=== PATIENT | female | born 1980 | race Caucasian/White ===

== ENCOUNTER 2018-07-13 16:51 | Emergency (ER) | payer MEDICAID, OTHER ==
--- OUTSIDE RECORDS SUMMARY | 2018-07-13 16:53 | XMS REPORT ---
:1980 [facility] Address [address] [place] [address] Dr. Anderson [address] [place] [id number] Care Team Providers Name Role Phone Unavailable Unavailable Unavailable Problems This patient has no known problems. Allergies, Adverse Reactions, Alerts This patient has no known allergies or adverse reactions. Medications This patient has no known medications.
[2018-07-13] MEDS ORDERED: KETOROLAC 30 MG/ML INJ ONE (17:57)
[2018-07-13 17:58] LABS: Absolute Lymphocytes (CBC) 1.7 K/uL (0.7-4.9); Absolute Monocytes 0.3 K/uL (0.1-1.3); Absolute Neutrophil 5.3 K/uL (1.8-8.0); Basophils % 0.2 % (0-1.3); Eosinophils % 2.5 % (0-4.4); Hematocrit 41.5 % (36.0-45.0); MPV 9.4 fL (7.6-11.3); Monocytes % 4.3 % (3.3-12.3); RBC Red Blood Cell Count 4.86 M/uL (3.86-4.86)
--- NOTE | 2018-07-13 18:04 | RAD REPORT ---
EXAM DESCRIPTION: CT - Stone Protocol - 07/13/2018 5:55 pm CLINICAL HISTORY: Right back pain, right flank pain radiating to the right lower quadrant, dysuria COMPARISON: CT imaging June 2016 TECHNIQUE: Axial 5 mm thick images were obtained without oral or IV contrast. The [id number] span s the entirety of the system partially obscuring uppermost abdomen and lung bases. All CT scans are performed using dose optimization technique as appropriate and may include automated exposure control or mA/KV adjustment according to patient size. FINDINGS: No hydronephrosis is present and no obstructing ureteral calculi. No suspicious renal mass es. Isodense masses and pyelonephritis are not excluded on a stone protocol CT scan. Urinary bladder is only partially filled which limits assessment. No bladder calculus seen. No significant adrenal fi nding. No uterine or ovarian suspicious finding seen. Free fluid in the cul-de-sac is well within phy siologic limits. Imaged portions of the liver, spleen and pancreas show no suspicious findings on non-contrast imaging . Cholecystectomy clips are present. No biliary tree dilatation. No suspicious bowel findings. No appendicitis or other acute GI process seen. No hernia, mass or bulky lymphadenopathy noted. No free air, free fluid or inflammatory stranding. No significant bony abnormality. No acute lung base finding. Anterior pericardial thickening or effusion has not change from 2017. IMPRESSION: No hydronephrosis, obstructing calculus or acute finding seen. Isodense masses and pyelonephritis are not excluded on stone protocol technique. 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 No abnormality seen to explain the patient's symptoms.
[2018-07-13 18:15] LABS: Potassium 3.8 mmol/L (3.5-5.1)
[2018-07-13 18:28] LABS: Urine Blood 2+ (NEG); Urine Glucose NEGATIVE (NEG); Urine Protein 1+ (NEG); Urine Specific Gravity >1.030 (1.005-1.030); Urine pH 5.5 (5.0-7.0)
[2018-07-13] MEDS ORDERED: CEFTRIAXONE/SWI 1gm 1 GM/10 ML SYR ONE (18:31)
[2018-07-13 18:42] LABS: Urine Bacteria >50 /HPF (<20); Urine Culture Reflex Order NOT NEEDED; Urine Trichomonas PRESENT (NONE SEEN)
--- NOTE | 2018-07-13 18:46 | EDPHYS ---
Physician Documentation [facility] Name: Tg Quarles Age: 38 yrs Sex: Female : 1980 Arrival Date: 07/13/2018 Time: 17:03 Bed 19 Private MD: Wes Urena E ED Physician Darrian Eason HPI: 07/13 18:18 This 38 yrs old Female presents to ER via Ambulatory with complaints of Flank jr8 pain, Urinary Problem. 18:18 The patient complains of pain in the right flank. The pain does not radiate. Onset: The jr8 symptoms/episode began/occurred acutely, 2 week(s) ago, and became persistent. Modifying factors: The symptoms are alleviated by nothing. the symptoms are aggravated by nothing. Associated signs and symptoms: Pertinent positives: dysuria. Severity of pain: At its worst the pain was moderate in the emergency department the pain is unchanged. It is unknown whether or not the patient has had similar symptoms in the past. The patient has not recently seen a physician. History of renal stones and cystitis in past . 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 - Social history:: Smoking status: Patient/guardian denies using tobacco. - Ebola Screening: : No symptoms or risks identified at this time. ROS: 18:18 Eyes: Negative for injury, pain, redness, and discharge, ENT: Negative for injury, jr8 pain, and discharge, Neck: Negative for injury, pain, and swelling, Cardiovascular: Negative for chest pain, palpitations, and edema, Respiratory: Negative for shortness of breath, cough, wheezing, and pleuritic chest pain, Abdomen/GI: Negative for abdominal pain, nausea, vomiting, diarrhea, and constipation, MS/Extremity: Negative for injury and deformity, Skin: Negative for injury, rash, and discoloration, Neuro: Negative for headache, weakness, numbness, tingling, and seizure. 18:18 Back: Positive for flank pain, on the right. 18:18 : Positive for urinary symptoms, Negative for vaginal bleeding, vaginal discharge, vaginal itching. Exam: 18:18 Eyes: Pupils equal round and reactive to light, extra-ocular motions intact. Lids and jr8 lashes normal. Conjunctiva and sclera are non-icteric and not injected. Cornea within normal limits. Periorbital areas with no swelling, redness, or edema. ENT: Nares patent. No nasal discharge, no septal abnormalities noted. Tympanic membranes are normal and external auditory canals are clear. Oropharynx with no redness, swelling, or masses, exudates, or evidence of obstruction, uvula midline. Mucous membranes moist. Neck: Trachea midline, no thyromegaly or masses palpated, and no cervical lymphadenopathy. Supple, full range of motion without nuchal rigidity, or vertebral point tenderness. No Meningismus. Cardiovascular: Regular rate and rhythm with a normal S1 and S2. No gallops, murmurs, or rubs. Normal PMI, no JVD. No pulse deficits. Respiratory: Lungs have equal breath sounds bilaterally, clear to auscultation and percussion. No rales, rhonchi or wheezes noted. No increased work of breathing, no retractions or nasal flaring. Skin: Warm, dry with normal turgor. Normal color with no rashes, no lesions, and no evidence of cellulitis. MS/ Extremity: Pulses equal, no cyanosis. Neurovascular intact. Full, normal range of motion. Neuro: Awake and alert, GCS 15, oriented to person, place, time, and situation. Cranial nerves II-XII grossly intact. Motor strength 5/5 in all extremities. Sensory grossly intact. Cerebellar exam normal. Normal gait. 18:18 Abdomen/GI: Inspection: abdomen appears normal, Bowel sounds: active, all quadrants, Palpation: soft, in all quadrants, mild abdominal tenderness, in the suprapubic area and anterior aspect of right lateral abdomen, mass, is not appreciated, rebound tenderness, is not appreciated, voluntary guarding, is not appreciated, involuntary guarding, is not appreciated, no appreciated organomegaly, Indicators: McBurney's point is not tender, Joya's sign is negative, Rovsing's sign is negative, Obturator sign is negative, Psoas sign is negative, Liver: tenderness, is not appreciated. 18:18 Back: pain, is absent, CVA tenderness, that is mild, is noted on the right. Vital Signs: 17:20 BP 121 / 48; Pulse 118; Resp 20; Temp 97.4; Pulse Ox 98% on R/A; ph MDM: 17:16 Patient medically screened. 8 18:24 Data reviewed: vital signs, nurses notes, lab test result(s), radiologic studies, CT jr8 scan, and as a result, I will discharge patient. Data interpreted: Pulse oximetry: on room air is 98 %. Interpretation: normal. Counseling: I had a detailed discussion with the patient and/or guardian regarding: the historical points, exam findings, and any diagnostic results supporting the discharge/admit diagnosis, lab results, radiology results, the need for outpatient follow up, a family practitioner, to return to the emergency department if symptoms worsen or persist or if there are any questions or concerns that arise at home. 07/13 17:35 Order name: Basic Metabolic Panel; Complete Time: 18:17 07/13 17:35 Order name: CBC with Diff; Complete Time: 18:17 07/13 17:35 Order name: Creatinine for Radiology; Complete Time: 18:17 07/13 17:45 Order name: Urine Dipstick--Ancillary (enter results); Complete Time: 18:39 07/13 17:45 Order name: Urine --Ancillary (enter results); Complete Time: 18:39 07/13 18:21 Order name: Urine Microscopic Only; Complete Time: 18:48 07/13 17:35 Order name: IV Saline Lock; Complete Time: 17:38 07/13 17:35 Order name: Labs collected and sent; Complete Time: 17:38 [facility] 07/13 17:35 Order name: CT Stone Protocol; Complete Time: 18:17 07/13 17:38 Order name: Urine Test (obtain specimen); Complete Time: 17:42 07/13 18:21 Order name: Urine Culture 07/13 17:38 Order name: Urine Dipstick-Ancillary (obtain specimen); Complete Time: 17:42 Administered Medications: 17:45 Drug: TORadol 30 mg Route: IVP; Site: right antecubital; hj 18:01 Follow up: Response: No adverse reaction; Pain is decreased hj 18:17 Drug: Rocephin 1 grams Route: IV; Rate: calculated rate; Site: right antecubital; hj 18:24 Follow up: IV Status: Completed infusion hj 18:49 Drug: Flagyl 2 grams Route: PO; hj 18:59 Follow up: Response: No adverse reaction hj Disposition: 07/13/18 18:45 Discharged to Home. Impression: Acute cystitis with hematuria. - Condition is Stable. - Prescriptions for Diflucan 150 mg Oral Tablet - take 1 tablet by ORAL route one time for 1 day; 1 tablet. Pyridium 200 mg Oral Tablet - take 1 tablet by ORAL route every 8 hours for 3 days; 9 tablet. Macrobid 100 mg Oral Capsule - take 1 capsule by ORAL route every 12 hours for 7 days; 14 capsule. - Medication Reconciliation Form, Thank You Letter, Antibiotic Education, Prescription Opioid Use form. - Follow up: Wes Urena MD; When: 2 - 3 days; Reason: Recheck today's complaints, Continuance of care, Re-evaluation by your physician. - Problem is new. - Symptoms have improved. Signatures: Dispatcher [employer] EDMS August Reynolds PA PA jr8 Brittney Waldron RN RN Mike Rivsa RN RN Corrections: (The following items were deleted from the chart) 18:19 18:18 This 38 yrs old Female presents to ER via Ambulatory with complaints of jr8 Abdominal Pain, Urinary Problem. jr8 19:09 18:45 07/13/2018 18:45 Discharged to Home. Impression: Acute cystitis with hematuria. hj Condition is Stable. Forms are Medication Reconciliation Form, Thank You Letter, Antibiotic Education, Prescription Opioid Use. Follow up: Wes Urena; When: 2 - 3 days; Reason: Recheck today's complaints, Continuance of care, Re-evaluation by your physician. Problem is new. Symptoms have improved. jr8
--- NOTE | 2018-07-13 18:46 | ER ---
Nurse's Notes [facility] Name: Tg Quarles Age: 38 yrs Sex: Female : 1980 Arrival Date: 07/13/2018 Time: 17:03 Bed 19 Private MD: Wes Urena E Diagnosis: Acute cystitis with hematuria Presentation: 07/13 17:19 Presenting complaint: Patient states: R mid back pain that radiates to RLQ, urinary ph frequency/urgency and vaginal discomfort, denies N/V/D or fever. Transition of care: patient was not received from another setting of care. Onset of symptoms. Risk Assessment: Do you want to hurt yourself or someone else? Patient reports no desire to harm self or others. Initial Sepsis Screen: Does the patient meet any 2 criteria? No. Patient's initial sepsis screen is negative. Does the patient have a suspected source of infection? Yes: Dysuria/Frequency/Urgency/UTI. Care prior to arrival: None. 17:19 Method Of Arrival: Ambulatory ph 17:19 Acuity: JULIENNE 3 ph Triage Assessment: 17:22 General: Appears in no apparent distress. uncomfortable, Behavior is calm, cooperative, hj appropriate for age. Pain: Complains of pain in abdomen. 17:24 GI: Abdomen is non-distended. 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 - Social history:: Smoking status: Patient/guardian denies using tobacco. - Ebola Screening: : No symptoms or risks identified at this time. Screenin:21 Abuse screen: Denies threats or abuse. Denies injuries from another. Nutritional hj screening: No deficits noted. Tuberculosis screening: No symptoms or risk factors identified. Fall Risk None identified. Assessment: 17:25 GI: Bowel sounds present X 4 quads. Abd is soft and non tender. hj 17:25 General: Appears in no apparent distress. uncomfortable, Behavior is calm, cooperative, hj appropriate for age. Pain: Complains of pain in abdomen. Neuro: Level of Consciousness is awake, alert, obeys commands, Oriented to person, place, time, situation, Appropriate for age. Cardiovascular: Capillary refill < 3 seconds Patient's skin is warm and dry. Respiratory: Airway is patent Respiratory effort is even, unlabored, Respiratory pattern is regular, symmetrical. : No signs and/or symptoms were reported regarding the genitourinary system. EENT: No signs and/or symptoms were reported regarding the EENT system. Derm: No signs and/or symptoms reported regarding the dermatologic system. Musculoskeletal: No signs and/or symptoms reported regarding the musculoskeletal system. 17:52 Reassessment: wheeled to CT;. hj Vital Signs: 17:20 BP 121 / 48; Pulse 118; Resp 20; Temp 97.4; Pulse Ox 98% on R/A; ph ED Course: 17:03 Patient arrived in ED. mr 17:03 Wes Urena MD is Private Physician. mr 17:11 Mike Rivas, SUMAYA is Primary Nurse. hj 17:15 August Reynolds PA is PHCP. jr8 17:15 Darrian Eason MD is Attending Physician. jr8 17:20 Triage completed. ph 17:23 Arm band placed on Patient placed in an exam room, on a stretcher. ph 17:25 Patient has correct armband on for positive identification. Placed in gown. Bed in low hj position. Call light in reach. Side rails up X 1. Adult w/ patient. 17:40 Initial lab(s) drawn, by me, sent to lab. Inserted saline lock: 22 gauge in right hj antecubital area, using aseptic technique. Blood collected. 17:[address] via wheelchair. vm2 17:55 CT Stone Protocol In Process Unspecified. EDMS 17:55 CT completed. Patient tolerated procedure well. Patient moved back from CT. nj 18:39 Wes Urena MD is Referral Physician. jr8 19:08 No provider procedures requiring assistance completed. IV discontinued, intact, hj bleeding controlled, No redness/swelling at site. Pressure dressing applied. Administered Medications: 17:45 Drug: TORadol 30 mg Route: IVP; Site: right antecubital; hj 18:01 Follow up: Response: No adverse reaction; Pain is decreased hj 18:17 Drug: Rocephin 1 grams Route: IV; Rate: calculated rate; Site: right antecubital; hj 18:24 Follow up: IV Status: Completed infusion hj 18:49 Drug: Flagyl 2 grams Route: PO; 18:59 Follow up: Response: No adverse reaction Outcome: 18:45 Discharge ordered by MD. stanton 19:08 Discharged to home ambulatory, with family. 19:08 Condition: stable 19:08 Discharge instructions given to patient, Instructed on discharge instructions, follow up and referral plans. medication usage, Demonstrated understanding of instructions, follow-up care, medications, Prescriptions given X 3. 19:09 Patient left the ED. Signatures: Dispatcher [employer] EDIN Milagros Delgado Josh, PA PA jrBrittney Rhoades RN RN Mike Rivas RN RN hj Jordan, Nathan nj McGuire, [facility]
[2018-07-13] MEDS ORDERED: metroNIDAZOLE 500 MG TABLET ONE (19:07)
[2018-07-13 19:31] VITALS: BP 121/48; TEMP 97.4; O2SAT 98
== END 2018-07-13 19:09 | disposition home or self-care (01) ==
LOC: ER 16:51
DX: N30.01 Acute cystitis with hematuria (principal); I10 Essential (primary) hypertension; Z88.2 Allergy status to sulfonamides; Z88.5 Allergy status to narcotic agent
CPT/HCPCS: 36415; 74176; 76377; 80048; 81003; 81015; 81025; 85025; 87077; 87086; 87088; 87186; 96374; 96375; 99284; J0696

== ENCOUNTER 2018-12-05 18:14 | Emergency (ER) | payer OTHER ==
--- OUTSIDE RECORDS SUMMARY | 2018-12-05 18:18 | XMS REPORT ---
:1980 [facility] Address [address] [place] [address] Dr. Pierce. [address] [place] [address] Care Team Providers Name Role Phone DR MATT MCLAUGHLIN Unavailable Unavailable SIDALECQU, LORENA Unavailable Unavailable Problems This patient has no known problems. Allergies, Adverse Reactions, Alerts This patient has no known allergies or adverse reactions. Medications This patient has no known medications. Encounters Start End Encounter Admission Attending Care Care Encounter Date/Time Date/Time Type Type Clinicians Facility Department ID 2018-10-15 2018-10-15 Emergency E DARSHANA MCLAUGHLIN [facility] [id number] 02:31:00 03:40:00 MATT 2018-10-01 2018-10-01 Outpatient C PERCY Alen RAD [id number] 08:05:00 23:59:00 LORENA Results Test Description Test Time Test Comments Text Results Atomic Results Result Comments CT ABDOMEN AND 2018-10-01 08:51:45 EXAM: CT ABDOMEN AND PELVIS WITH PELVIS WITH CONTRAST.LOCATION: D4.HISTORY: [id number]: CONTRAST Disorder of [id number]: Benign neoplasm of colon.COMPARISON:None.TECHNIQUE:CT abdomen and pelvis was performed with the use of IV contrast (98 mLOmnipaque 300). Sagittal and coronal reconstructed images were available forreview.This exam was performed according to our departmental dose-optimizationprogram, which includes automated exposure control, adjustment of the mA and/orkV according to patient size, and/or use of iterative reconstruction technique.FINDINGS:Lower chest:The lung bases are clear. Heart size is normal.Abdomen:There has been prior cholecystectomy. Focal areas of cortical scarring are seenin the right kidney. Couple subcentimeter hypodensities in the right kidney istoo small to characterize. The liver, pancreas, spleen, bilateral adrenalglands, and left kidney appear within normal limits.There is no evidence of bowel obstruction. The appendix is not well visualized;however, there are no significant inflammatory changes in the right lowerquadrant to suggest appendicitis.No pneumoperitoneum or ascites is present. There is no retroperitoneal ormesenteric lymphadenopathy.Pelvis:The urinary bladder appears normal. 4.0 cm left adnexal cyst is present, likelywithin the left ovary. Small amount of ascites is present. No pelvic oringuinal adenopathy is identified.Bones:There is a slight grade 1 retrolisthesis of L2 over L3, L3 over L4, and of L5over S1. No acute osseous abnormality is identified. No aggressive lytic orblastic lesions are seen.IMPRESSION:4.0 cm left adnexal cyst, likely within the left ovary.Mild physiologic pelvic ascites.
--- NOTE | 2018-12-05 18:40 | EDPHYS ---
Physician Documentation [facility] Name: Tg Quarles Age: 38 yrs Sex: Female : 1980 Arrival Date: 12/05/2018 Time: 18:19 Bed 19 Private MD: ED Physician Emeka Calles HPI: 12/05 18:51 This 38 yrs old Female presents to ER via Ambulatory with complaints of kb Numbness Of Hand, Arm Pain. 18:53 The patient or guardian complains of pain, that is acute. The complaints affect the kb left arm. Context: The problem was sustained at home, resulted from unknown cause. Onset: The symptoms/episode began/occurred "a while ago". Treatment prior to arrival includes: no previous treatment. Modifying factors: The symptoms are alleviated by nothing. the symptoms are aggravated by nothing. Associated signs and symptoms: Pertinent positives: numbness, pain, tingling. Severity of symptoms: At their worst the symptoms were mild, in the emergency department the symptoms are unchanged. The patient has not experienced similar symptoms in the past. The patient has not recently seen a physician. Pt reports pain to entire left arm that started a while ago. Today notice numbness to forth and fifth digits on left hand. Historical: - Allergies: 18:22 Sulfa (Sulfonamide Antibiotics); la1 18:22 tramadol; la1 - PMHx: 18:22 GERD; Hypertension; UTI; la1 - Immunization history:: Adult Immunizations up to date. - Social history:: Smoking status: Patient uses tobacco products, denies chronic smoking, but will smoke occasionally. - Ebola Screening: : No symptoms or risks identified at this time. ROS: 18:48 Constitutional: Negative for fever, chills, and weight loss, Cardiovascular: Negative kb for chest pain, palpitations, and edema, Respiratory: Negative for shortness of breath, cough, wheezing, and pleuritic chest pain, Abdomen/GI: Negative for abdominal pain, nausea, vomiting, diarrhea, and constipation, Skin: Negative for injury, rash, and discoloration, Neuro: Negative for headache, weakness, numbness, tingling, and seizure. 18:48 MS/extremity: Positive for pain, tingling, of the left ring finger, left little finger and left arm. Exam: 18:48 Constitutional: This is a well developed, well nourished patient who is awake, alert, kb and in no acute distress. Head/Face: Normocephalic, atraumatic. Chest/axilla: Normal chest wall appearance and motion. Nontender with no deformity. No lesions are appreciated. Cardiovascular: Regular rate and rhythm with a normal S1 and S2. No gallops, murmurs, or rubs. Normal PMI, no JVD. No pulse deficits. Respiratory: Lungs have equal breath sounds bilaterally, clear to auscultation and percussion. No rales, rhonchi or wheezes noted. No increased work of breathing, no retractions or nasal flaring. Abdomen/GI: Soft, non-tender, with normal bowel sounds. No distension or tympany. No guarding or rebound. No evidence of tenderness throughout. Skin: Warm, dry with normal turgor. Normal color with no rashes, no lesions, and no evidence of cellulitis. Neuro: Awake and alert, GCS 15, oriented to person, place, time, and situation. Cranial nerves II-XII grossly intact. Motor strength 5/5 in all extremities. Sensory grossly intact. Cerebellar exam normal. Normal gait. 18:48 Musculoskeletal/extremity: Extremities: grossly normal except: noted in the left arm: pain, noted in the left ring finger and left little finger: tingling/numbness, ROM: intact in all extremities, Circulation is intact in all extremities. Sensation intact. Vital Signs: 18:21 BP 104 / 76; Pulse 74; Resp 16; Temp 97.4; Pulse Ox 98% on R/A; Weight 107.95 kg; la1 Height 6 ft. 2 in. (187.96 cm); 18:21 Body Mass Index 30.56 (107.95 kg, 187.96 cm) la1 MDM: 18:27 Patient medically screened. kb 18:50 Data reviewed: vital signs, nurses notes. Data interpreted: Pulse oximetry: on room air kb is 98 %. Interpretation: normal. Counseling: I had a detailed discussion with the patient and/or guardian regarding: the historical points, exam findings, and any diagnostic results supporting the discharge/admit diagnosis, the need for outpatient follow up, a family practitioner, to return to the emergency department if symptoms worsen or persist or if there are any questions or concerns that arise at home. Administered Medications: 18:46 Drug: predniSONE 40 mg Route: PO; em 18:49 Follow up: Response: Medication administered at discharge. em Disposition: 12/05/18 18:40 Discharged to Home. Impression: Pain in left arm - neuropathy. - Condition is Stable. - Discharge Instructions: Musculoskeletal Pain, Neuropathic Pain. - Prescriptions for Prednisone 20 mg Oral Tablet - take 1 tablet by ORAL route once daily for 5 days; 5 tablet. - Medication Reconciliation Form, Thank You Letter, Antibiotic Education, Prescription Opioid Use form. - Follow up: Emergency Department; When: As needed; Reason: Worsening of condition. Follow up: Private Physician; When: 2 - 3 days; Reason: Recheck today's complaints, Continuance of care, Re-evaluation by your physician. Signatures: Brielle Dhillon, YARN CLEANER-C YARN CLEANER-Jeremiah Mcdonald, DRY CLEANER PRESSER DRY CLEANER PRESSER em Alexis Hartman RN RN la1 Corrections: (The following items were deleted from the chart) 18:53 18:40 12/05/2018 18:40 Discharged to Home. Impression: Pain in left arm - neuropathy. em Condition is Stable. Forms are Medication Reconciliation Form, Thank You Letter, Antibiotic Education, Prescription Opioid Use. Follow up: Emergency Department; When: As needed; Reason: Worsening of condition. Follow up: Private Physician; When: 2 - 3 days; Reason: Recheck today's complaints, Continuance of care, Re-evaluation by your physician. kb
--- NOTE | 2018-12-05 18:40 | ER ---
Nurse's Notes [facility] Name: Tg Quarles Age: 38 yrs Sex: Female : 1980 Arrival Date: 12/05/2018 Time: 18:19 Bed 19 Private MD: Diagnosis: Pain in left arm-neuropathy Presentation: 12/05 18:22 Presenting complaint: Patient states: I woke up this morning and on my left hand my la1 fourth and fifth digits are numb and my arm is hurting. Transition of care: patient was not received from another setting of care. Onset of symptoms was December 05, 2018. Risk Assessment: Do you want to hurt yourself or someone else? Patient reports no desire to harm self or others. Initial Sepsis Screen: Does the patient meet any 2 criteria? No. Patient's initial sepsis screen is negative. Does the patient have a suspected source of infection? No. Patient's initial sepsis screen is negative. Care prior to arrival: None. 18:22 Method Of Arrival: Ambulatory la1 18:22 Acuity: JULIENNE 4 la1 Historical: - Allergies: 18:22 Sulfa (Sulfonamide Antibiotics); la1 18:22 tramadol; la1 - PMHx: 18:22 GERD; Hypertension; UTI; la1 - Immunization history:: Adult Immunizations up to date. - Social history:: Smoking status: Patient uses tobacco products, denies chronic smoking, but will smoke occasionally. - Ebola Screening: : No symptoms or risks identified at this time. Screenin:38 Abuse screen: Denies threats or abuse. Nutritional screening: No deficits noted. em Tuberculosis screening: No symptoms or risk factors identified. Fall Risk None identified. Assessment: 18:38 General: Appears in no apparent distress. comfortable, Behavior is calm, cooperative. em Pain: Complains of pain in left arm Pain currently is 6 out of 10 on a pain scale. Quality of pain is described as radiating, Pain began 1 day ago. Neuro: Level of Consciousness is awake, alert, obeys commands, Oriented to person, place, time, situation, Moves all extremities. Gait is steady, Speech is normal, Facial symmetry appears normal, Reports paresthesias in dorsal aspect of distal phalanx of left ring finger, dorsal aspect of middle phalanx of left ring finger, dorsal aspect of proximal phalanx of left ring finger, dorsal aspect of distal phalanx of left little finger, dorsal aspect of middle phalanx of left little finger and dorsal aspect of proximal phalanx of left little finger Denies headache. Cardiovascular: Capillary refill < 3 seconds Patient's skin is warm and dry. Respiratory: Airway is patent Respiratory effort is even, unlabored, Respiratory pattern is regular, symmetrical. GI: Abdomen is flat. Derm: Skin is intact, is healthy with good turgor, Skin is pink, warm \T\ dry. Musculoskeletal: Capillary refill < 3 seconds, Range of motion: intact in all extremities, Reports. Vital Signs: 18:21 BP 104 / 76; Pulse 74; Resp 16; Temp 97.4; Pulse Ox 98% on R/A; Weight 107.95 kg; la1 Height 6 ft. 2 in. (187.96 cm); 18:21 Body Mass Index 30.56 (107.95 kg, 187.96 cm) la1 ED Course: 18:19 Patient arrived in ED. mr 18:22 Arm band placed on right wrist. la1 18:23 Triage completed. la1 18:27 Bri[facility]hillon [facility]C [facility] kb 18:27 Emeka Calles MD is Attending Physician. kb 18:37 Jeremiah Plascencia LVN is Primary Nurse. em 18:38 Patient has correct armband on for positive identification. Bed in low position. em 18:38 No provider procedures requiring assistance completed. Patient did not have IV access em during this emergency room visit. Administered Medications: 18:46 Drug: predniSONE 40 mg Route: PO; em 18:49 Follow up: Response: Medication administered at discharge. em Outcome: 18:40 Discharge ordered by MD. kb 18:50 Discharged to home ambulatory. em 18:50 Condition: stable 18:50 Discharge instructions given to patient, Instructed on discharge instructions, follow up and referral plans. medication usage, Demonstrated understanding of instructions, follow-up care, medications, Prescriptions given X 1. 18:53 Patient left the ED. em Signatures: Brielle Dhiloln FNP-C FNP-Jaqui DannyMilagros mr Jeremiah Plascencia LVN MEDICAL SUPERINTENDENT em Alexis Hartman RN RN la1
[2018-12-05] MEDS ORDERED: predniSONE 20 MG TAB ONE (18:56)
[2018-12-05 19:03] VITALS: BP 104/76; TEMP 97.4; O2SAT 98
== END 2018-12-05 18:53 | disposition home or self-care (01) ==
LOC: ER 18:14
DX: G62.9 Polyneuropathy, unspecified (principal); K21.9 Gastro-esophageal reflux disease without esophagitis; I10 Essential (primary) hypertension; Z72.0 Tobacco use; Z88.5 Allergy status to narcotic agent; Z88.2 Allergy status to sulfonamides
CPT/HCPCS: 99283; J7512

== ENCOUNTER 2018-12-12 17:11 | Emergency (ER) | payer OTHER ==
--- OUTSIDE RECORDS SUMMARY | 2018-12-12 17:14 | XMS REPORT ---
:1980 [facility] Address [address] [place] [address] Dr. Pierce. [address] [place] [address] Care Team Providers Name Role Phone DR MATT MCLAUGHLIN Unavailable Unavailable SIDDIQU, LORENA Unavailable Unavailable Problems This patient has no known problems. Allergies, Adverse Reactions, Alerts This patient has no known allergies or adverse reactions. Medications This patient has no known medications. Encounters Start End Encounter Admission Attending Care Care Encounter Date/Time Date/Time Type Type Clinicians Facility Department ID 2018-10-15 2018-10-15 Emergency E [facility] [id number] 02:31:00 03:40:00 MATT 2018-10-01 2018-10-01 Outpatient C [facility] RAD [id number] 08:05:00 23:59:00 LORENA Results Test Description Test Time Test Comments Text Results Atomic Results Result Comments CT ABDOMEN AND 2018-10-01 08:51:45 EXAM: CT ABDOMEN AND PELVIS WITH PELVIS WITH CONTRAST.LOCATION: D4.HISTORY: [id number]: CONTRAST Disorder of [id number]: Benign neoplasm of colon.COMPARISON:None.TECHNIQUE:CT abdomen and pelvis [...]
--- OUTSIDE RECORDS SUMMARY | 2018-12-12 17:14 | XMS REPORT | Summary of Care ---
:1980 [address] [facility] Address [address] [place] [address] Care Team Providers Name Role Phone Jl Martins MD Primary Care Provider Reason for Visit Reason Comments Talk To Nurse Encounter Details Date Type Department Care Team Description 12/10/2018 Telephone [facility] Women's Eun Mitchell PA-C Talk To Nurse Healthcare- [address], [facility] [address] [place] [address] [place] [phone] Allergies Active Allergy Reactions Severity Noted Date Comments Sulfa (Sulfonamide Antibiotics) Hives 10/28/2013 Tramadol Nausea and/or Vomiting 07/04/2015 documented as of this encounter (statuses as of 12/10/2018) Medications Medication Sig Dispensed Refills Start Date End Date Status cetirizine (ZYRTEC) 10 0 12/02/2015 Active mg tablet omeprazole 40 mg 0 09/16/2018 Active capsule ondansetron 4 mg 0 09/16/2018 Active tablet metoprolol tartrate 25 Take 0.5 tablets 45 tablet 1 09/21/2018 03/20/2019 Active mg tabletIndications: by mouth daily Essential hypertension for 180 days. metroNIDAZOLE 500 mg Take 1 tablet by 14 tablet 0 12/01/2018 Active tabletIndications: mouth every 12 Vaginal (twelve) hours. trichomoniasis, BV (bacterial vaginosis) fluconazole 200 mg Take 1 tablet by 1 tablet 0 12/02/2018 Active tabletIndications: mouth daily. Vaginal yeast infection documented as of this encounter (statuses as of 12/10/2018) Active Problems Problem Noted Date Trichomonal vulvovaginitis 12/01/2018 BV (bacterial vaginosis) 12/01/2018 Obesity (BMI 30-39.9) 11/22/2018 Skin yeast infection 12/03/2015 Well woman exam with routine gynecological exam 12/03/2015 Screen for STD (sexually transmitted disease) 12/03/2015 Depo contraception 12/03/2015 Pain pelvic 07/02/2015 Surveillance of previously prescribed contraceptive method 07/02/2015 Irregular menstrual cycle 07/02/2015 Well woman exam without gynecological exam 07/02/2015 Need for prophylactic vaccination with combined 07/02/2015 umrkeduten-gbqqsys-ccimmejnc (DTP) vaccine BMI 34.0-34.9,adult 07/02/2015 documented as of this encounter (statuses as of 12/10/2018) Immunizations Name Administration Dates Next Due Influenza Virus Vaccine Quad .5 mL IM 6+ MO 04/19/2018 Td 12/28/1996 Tdap 07/02/2015 documented as of this encounter Social History Tobacco Use Types Packs/Day Years Used Date Current Some Day Smoker Cigarettes Smokeless Tobacco: Never Used Alcohol Use Drinks/Week oz/Week Comments No 0 Standard drinks or equivalent 0.0 Sex Assigned at Date Recorded Not on file Job Start Date Occupation Industry Not on file Not on file Not on file Travel History Travel Start Travel End No recent travel history available. documented as of this encounter Last Filed Vital Signs Not on filedocumented in this encounter Plan of Treatment Date Type Specialty Care Team Description 03/11/2019 Nurse Visit Obstetrics & Gynecology Nurse, [facility] Women's [facility] Health Maintenance Due Date Last Done Comments PNEUMOCOCCAL 0-64 YEARS COMBINED SERIES (1 01/08/1988 of 1 - PPSV23) VARICELLA VACCINES (1 of 2 - 13+ 2-dose 1995 series) INFLUENZA VACCINE 01/16/2019 04/19/2018 PAP SMEAR 10/15/2022 10/15/2017, 10/28/2013 DTaP,Tdap,and Td Vaccines (3 - Td) 07/02/2025 07/02/2015, 12/28/1996 documented as of this encounter Results Not on filedocumented in this encounter Insurance Payer Benefit Plan / Subscriber ID Effective Phone Address Type Group Dates [employer] xxxxxxxxx [address] [place] [id number] [place] [address] documented as of this encounter
[2018-12-12 18:01] LABS: Urine Blood 1+ (NEG); Urine Glucose NEGATIVE (NEG); Urine Protein 1+ (NEG); Urine Specific Gravity 1.025 (1.005-1.030)
[2018-12-12] MEDS ORDERED: DIAZEPAM 5 MG TABLET ONE (18:10)
[2018-12-12] MEDS ORDERED: dexAMETHasone 10 MG/ML VIAL ONE (18:10)
[2018-12-12] MEDS ORDERED: KETOROLAC 30 MG/ML INJ ONE (18:11)
[2018-12-12 18:21] LABS: Urine Bacteria >50 /HPF (<20); Urine Culture Reflex Order REFLEXED; Urine RBC <5 /HPF (NONE SEEN)
--- NOTE | 2018-12-12 18:49 | ER ---
Nurse's Notes [facility] Name: Tg Quarles Age: 38 yrs Sex: Female : 1980 Arrival Date: 12/12/2018 Time: 17:17 Bed 17 Private MD: Diagnosis: Strain of muscle, fascia and tendon of lower back Presentation: 12/12 17:21 Presenting complaint: Patient states: lower back pain after bending down today. sv Transition of care: patient was not received from another setting of care. Onset of symptoms was December 12, 2018. Risk Assessment: Do you want to hurt yourself or someone else? Patient reports no desire to harm self or others. Initial Sepsis Screen: Does the patient meet any 2 criteria? No. Patient's initial sepsis screen is negative. Does the patient have a suspected source of infection? No. Patient's initial sepsis screen is negative. Care prior to arrival: None. 17:21 Method Of Arrival: Ambulatory sv 17:21 Acuity: JULIENNE 4 sv Historical: - Allergies: 17:21 Sulfa (Sulfonamide Antibiotics); sv 17:21 tramadol; sv - PMHx: 17:21 GERD; Hypertension; UTI; sv - Immunization history:: Adult Immunizations up to date. - Social history:: Smoking status: Patient uses tobacco products, denies chronic smoking, but will smoke occasionally. - Ebola Screening: : No symptoms or risks identified at this time. Screenin:26 Abuse screen: Denies threats or abuse. Nutritional screening: No deficits noted. em Tuberculosis screening: No symptoms or risk factors identified. Fall Risk None identified. Assessment: 17:21 General: Appears in no apparent distress. uncomfortable, Behavior is calm, cooperative, sv appropriate for age. Pain: Complains of pain in low back area Pain currently is 10 out of 10 on a pain scale. Is continuous, Aggravated by increased activity, repositioning, weight bearing. Neuro: Level of Consciousness is awake, alert, obeys commands, Oriented to person, place, time, situation, Moves all extremities. Full function Gait is steady. Respiratory: Respiratory effort is even, unlabored, Respiratory pattern is regular, symmetrical. Derm: Skin is pink, warm \T\ dry. 18:53 Reassessment: Patient appears in no apparent distress at this time. Patient and/or em family updated on plan of care and expected duration. Pain level reassessed. Patient is alert, oriented x 3, equal unlabored respirations, skin warm/dry/pink. rates pain 6/10 Patient states feeling better. Patient states symptoms have improved. Vital Signs: 17:21 Pulse 83; Resp 22; Temp 97; Pulse Ox 100% ; Weight 107.95 kg; Height 6 ft. 2 in. sv (187.96 cm); Pain 10/10; 17:24 BP 128 / 74; em 17:21 Body Mass Index 30.56 (107.95 kg, 187.96 cm) ED Course: 17:17 Patient arrived in ED. as 17:21 Triage completed. sv 17:22 Jeremiah Plascencia LVN is Primary Nurse. em 17:22 Arm band placed on Patient placed in an exam room, on a stretcher. sv 17:24 Angel Fox PA is PHCP. [facility] 17:24 Darrian Eason MD is Attending Physician. [facility] 17:26 Patient has correct armband on for positive identification. Bed in low position. Call em light in reach. 19:02 No provider procedures requiring assistance completed. Patient did not have IV access em during this emergency room visit. Administered Medications: 18:01 Drug: Valium 5 mg Route: PO; em 18:42 Follow up: Response: No adverse reaction; Pain is decreased em 18:03 Drug: Ketorolac 30 mg Route: IM; Site: right deltoid; em 18:42 Follow up: Response: No adverse reaction; Pain is decreased em 18:03 Drug: Decadron 10 mg Route: IM; Site: left deltoid; em 18:42 Follow up: Response: No adverse reaction; Pain is decreased em Outcome: 18:49 Discharge ordered by . [facility] 19:02 Discharged to home ambulatory. em 19:02 Condition: good 19:02 Discharge instructions given to patient, Instructed on discharge instructions, follow up and referral plans. medication usage, Demonstrated understanding of instructions, follow-up care, medications, Prescriptions given X 3. 19:04 Patient left the ED. em Signatures: Yomaira Alegre RN RN Angel Fox PA PA Jeermiah Todd LVN LVN em Giselle Workman as
--- NOTE | 2018-12-12 18:49 | EDPHYS ---
Physician Documentation [facility] Name: Tg Quarles Age: 38 yrs Sex: Female : 1980 Arrival Date: 12/12/2018 Time: 17:17 Bed 17 Private MD: NY[facility] Physician Darrian Eason HPI: 12/12 17:25 This 38 yrs old Female presents to ER via Ambulatory with complaints of Back jmm Pain. 17:25 The patient presents with pain that is acute. Onset: The symptoms/episode jmm began/occurred acutely, today. The pain does not radiate. Associated signs and symptoms: Pertinent negatives: abdominal pain, fever, incontinence, nausea, numbness, tingling, urinary retention, weakness. The problem was sustained when bending over. Modifying factors: The patient symptoms are alleviated by rest, the patient symptoms are aggravated by any movement. Patient states she bent over and developed pain to her right lower back. Denies radiation of pain. . Historical: - Allergies: 17:21 Sulfa (Sulfonamide Antibiotics); sv 17:21 tramadol; sv - PMHx: 17:21 GERD; Hypertension; UTI; sv - Immunization history:: Adult Immunizations up to date. - Social history:: Smoking status: Patient uses tobacco products, denies chronic smoking, but will smoke occasionally. - Ebola Screening: : No symptoms or risks identified at this time. ROS: 17:25 Constitutional: Negative for fever, chills, and weight loss, Cardiovascular: Negative jmm for chest pain, palpitations, and edema, Respiratory: Negative for shortness of breath, cough, wheezing, and pleuritic chest pain, Abdomen/GI: Negative for abdominal pain, nausea, vomiting, diarrhea, and constipation. 17:25 Back: Positive for injury or acute deformity, pain with movement. 17:25 All other systems are negative. Exam: 17:25 Constitutional: This is a well developed, well nourished patient who is awake, alert, jmm and in no acute distress. Head/Face: atraumatic. Eyes: EOMI, no conjunctival erythema appreciated ENT: Moist Mucus Membranes Neck: Trachea midline, Supple Chest/axilla: Normal chest wall appearance and motion. Cardiovascular: Regular rate and rhythm. No edema appreciated Respiratory: Normal respirations, no respiratory distress appreciated Abdomen/GI: Non distended, soft 17:25 Skin: General appearance color normal MS/ Extremity: Moves all extremities, no obvious deformities appreciated, no edema noted to the lower extremities Neuro: Awake and alert, normal gait Psych: Behavior is normal, Mood is normal, Patient is cooperative and pleasant 17:25 Back: right lower lumbar tenderness, no midline tenderness is appreciated. Vital Signs: 17:21 Pulse 83; Resp 22; Temp 97; Pulse Ox 100% ; Weight 107.95 kg; Height 6 ft. 2 in. sv (187.96 cm); Pain 10/10; 17:24 BP 128 / 74; em 17:21 Body Mass Index 30.56 (107.95 kg, 187.96 cm) sv MDM: 17:25 Patient medically screened. sina 18:48 Data reviewed: vital signs, nurses notes. Counseling: I had a detailed discussion with tricia the patient and/or guardian regarding: the historical points, exam findings, and any diagnostic results supporting the discharge/admit diagnosis, the need for outpatient follow up, to return to the emergency department if symptoms worsen or persist or if there are any questions or concerns that arise at home. Response to treatment: the patient's symptoms have markedly improved after treatment. 12/12 17:51 Order name: Urine Microscopic Only; Complete Time: 18:40 em 12/12 17:53 Order name: Urine Dipstick--Ancillary (enter results); Complete Time: 18:04 bd 12/12 17:53 Order name: Urine --Ancillary (enter results); Complete Time: 18:04 bd 12/12 18:26 Order name: Urine Culture [facility] 12/12 17:25 Order name: Urine Test (obtain specimen); Complete Time: 17:51 [facility] 12/12 17:51 Order name: Urine Dipstick-Ancillary (obtain specimen); Complete Time: 17:53 em Administered Medications: 18:01 Drug: Valium 5 mg Route: PO; em 18:42 Follow up: Response: No adverse reaction; Pain is decreased em 18:03 Drug: Ketorolac 30 mg Route: IM; Site: right deltoid; em 18:42 Follow up: Response: No adverse reaction; Pain is decreased em 18:03 Drug: Decadron 10 mg Route: IM; Site: left deltoid; em 18:42 Follow up: Response: No adverse reaction; Pain is decreased em Disposition: 12/13 07:25 Co-signature as Attending Physician, Darrian Eason MD I agree with the assessment and sina plan of care. Disposition: 12/12/18 18:49 Discharged to Home. Impression: Strain of muscle, fascia and tendon of lower back. - Condition is Stable. - Discharge Instructions: Back Pain, Adult. - Prescriptions for Ibuprofen 800 mg Oral Tablet - take 1 tablet by ORAL route every 8 hours As needed take with food; 30 tablet. Zanaflex 4 mg Oral Tablet - take 1 tablet by ORAL route every 8 hours As needed; 20 tablet. Cephalexin 500 mg Oral Capsule - take 1 capsule by ORAL route every 12 hours for 10 days; 20 capsule. - Medication Reconciliation Form, Thank You Letter, Antibiotic Education, Prescription Opioid Use form. - Follow up: Private Physician; When: 2 - 3 days; Reason: Recheck today's complaints, Continuance of care, Re-evaluation by your physician. Signatures: Dispatcher [employer] Yomaira Reyes RN RN sv Anderson, Corey, MD MD cha Mickail, Joel, PA PA Jeremiah Heart, PECAN GATHERER PECAN GATHERER em Corrections: (The following items were deleted from the chart) 12/12 19:04 18:49 12/12/2018 18:49 Discharged to Home. Impression: Strain of muscle, fascia and em tendon of lower back. Condition is Stable. Forms are Medication Reconciliation Form, Thank You Letter, Antibiotic Education, Prescription Opioid Use. Follow up: Private Physician; When: 2 - 3 days; Reason: Recheck today's complaints, Continuance of care, Re-evaluation by your physician. tricia
[2018-12-12 19:39] VITALS: TEMP 97; O2SAT 100
[2018-12-12 19:40] VITALS: BP 128/74
== END 2018-12-12 19:04 | disposition home or self-care (01) ==
LOC: ER 17:11
DX: S39.012A Strain of muscle, fascia and tendon of lower back, initial encounter (principal); I10 Essential (primary) hypertension; Z72.0 Tobacco use; Z88.2 Allergy status to sulfonamides; Z88.5 Allergy status to narcotic agent
CPT/HCPCS: 81003; 81015; 81025; 87086; 87088; 96372; 99283; J1100

== ENCOUNTER 2018-12-20 21:43 | Emergency (ER) | payer OTHER ==
--- OUTSIDE RECORDS SUMMARY | 2018-12-20 21:45 | XMS REPORT ---
:1980 [facility] Address [address] [place] [address] [address]. [address]. [address] [place] [address] Care Team Providers Name Role Phone DR [...] Department ID 2018-10-15 2018-10-15 Emergency E [facility] [address] [id number] 02:31:00 03:40:00 MATT 2018-10-01 2018-10-01 Outpatient C [facility] RAD [id number] 08:05:00 23:59:00 LORENA Results Test Description Test Time Test Comments Text Results Atomic Results Result Comments CT ABDOMEN AND 2018-10-01 08:51:45 EXAM: CT ABDOMEN AND PELVIS WITH PELVIS WITH CONTRAST.LOCATION: D4.HISTORY: [id number]: CONTRAST Disorder of [id number]: Benign neoplasm of colon.COMPARISON:None.TECHNIQUE:CT abdomen and pelvis [...]
--- OUTSIDE RECORDS SUMMARY | 2018-12-20 21:45 | XMS REPORT | Summary of Care ---
:1980 Author Organization [facility] Address [address] [place] [address] Care Team Providers Name Role Phone Jl Martins MD Primary Care Provider Reason for Visit Reason Comments Talk To Nurse Encounter Details Date Type Department Care Team Description 12/13/2018 Telephone [facility] Women's Eun Mitchell PA-C Talk To Nurse Healthcare- [address], [facility] [address] [place] [address] [place] [phone] Allergies Active Allergy Reactions Severity Noted Date Comments Sulfa (Sulfonamide Antibiotics) Hives 10/28/2013 Tramadol Nausea and/or Vomiting 07/04/2015 documented as of this encounter (statuses as of 12/13/2018) Medications Medication Sig Dispensed Refills Start Date [...] as of this encounter (statuses as of 12/13/2018) Active Problems Problem Noted Date Trichomonal vulvovaginitis [...] Need for prophylactic vaccination with combined 07/02/2015 oimybihkcj-ccsruif-lvbgdzbmg (DTP) vaccine BMI 34.0-34.9,adult 07/02/2015 documented as of this encounter (statuses as of 12/13/2018) Immunizations Name Administration Dates Next Due Influenza [...] [address] [place] [id number] [place] [address] documented as of this encounter
[2018-12-20 23:36] LABS: Urine Culture Reflex Order REFLEXED
[2018-12-20 23:37] LABS: Urine Bacteria <20 /HPF (<20); Urine RBC <5 /HPF (NONE SEEN)
[2018-12-21 00:22] LABS: Urine Blood NEGATIVE (NEG); Urine Glucose NEGATIVE (NEG); Urine Protein NEGATIVE (NEG); Urine pH 7.5 (5.0-7.0)
--- NOTE | 2018-12-21 01:27 | EDPHYS ---
Physician Documentation [facility] Name: Tg Quarles Age: 38 yrs Sex: Female : 1980 Arrival Date: 12/20/2018 Time: 22:00 Bed 12 Private MD: NYA Physician Adonis Fonseca HPI: 12/21 00:28 This 38 yrs old Female presents to ER via Ambulatory with complaints of Back kb Pain. 00:28 The patient complains of pain in the right flank. The pain does not radiate. Onset: The kb symptoms/episode began/occurred 4 day(s) ago. Modifying factors: The symptoms are alleviated by nothing. the symptoms are aggravated by nothing. Associated signs and symptoms: The patient has no apparent associated signs or symptoms. Severity of pain: At its worst the pain was mild moderate in the emergency department the pain is unchanged. The patient has experienced a previous episode, similar to previous stone. The patient has not recently seen a physician. 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 - Social history:: Smoking status: Patient uses tobacco products, denies chronic smoking, but will smoke occasionally. - Ebola Screening: : No symptoms or risks identified at this time. ROS: 12/21 00:27 Constitutional: Negative for fever, chills, and weight loss, ENT: Negative for injury, kb pain, and discharge, Neck: Negative for injury, pain, and swelling, Cardiovascular: Negative for chest pain, palpitations, and edema, Respiratory: Negative for shortness of breath, cough, wheezing, and pleuritic chest pain, Abdomen/GI: Negative for abdominal pain, nausea, vomiting, diarrhea, and constipation, MS/Extremity: Negative for injury and deformity, Skin: Negative for injury, rash, and discoloration, Neuro: Negative for headache, weakness, numbness, tingling, and seizure. : Positive for flank pain, cloudy urine. Exam: 00:27 Constitutional: This is a well developed, well nourished patient who is awake, alert, kb and in no acute distress. Head/Face: Normocephalic, atraumatic. ENT: Nares patent. No nasal discharge, no septal abnormalities noted. Tympanic membranes are normal and external auditory canals are clear. Oropharynx with no redness, swelling, or masses, exudates, or evidence of obstruction, uvula midline. Mucous membranes moist. Neck: Trachea midline, no thyromegaly or masses palpated, and no cervical lymphadenopathy. Supple, full range of motion without nuchal rigidity, or vertebral point tenderness. No Meningismus. Chest/axilla: Normal chest wall appearance and motion. Nontender with no deformity. No lesions are appreciated. Cardiovascular: Regular rate and rhythm with a normal S1 and S2. No gallops, murmurs, or rubs. Normal PMI, no JVD. No pulse deficits. Respiratory: Lungs have equal breath sounds bilaterally, clear to auscultation and percussion. No rales, rhonchi or wheezes noted. No increased work of breathing, no retractions or nasal flaring. Abdomen/GI: Soft, non-tender, with normal bowel sounds. No distension or tympany. No guarding or rebound. No evidence of tenderness throughout. Back: No spinal tenderness. No costovertebral tenderness. Full range of motion. Skin: Warm, dry with normal turgor. Normal color with no rashes, no lesions, and no evidence of cellulitis. MS/ Extremity: Pulses equal, no cyanosis. Neurovascular intact. Full, normal range of motion. Neuro: Awake and alert, GCS 15, oriented to person, place, time, and situation. Cranial nerves II-XII grossly intact. Motor strength 5/5 in all extremities. Sensory grossly intact. Cerebellar exam normal. Normal gait. Vital Signs: 12/20 22:04 BP 118 / 58; Pulse 91; Resp 18; Temp 98.1; Pulse Ox 100% on R/A; Weight 107.95 kg (R); ak1 Height 6 ft. 2 in. (187.96 cm) (R); Pain 10/10; 12/21 00:47 BP 123 / 66; Pulse 94; Resp 18; Temp 98.3(O); Pulse Ox 100% on R/A; mw2 01:37 BP 120 / 59; Pulse 91; Resp 16; Temp 97.9(O); Pulse Ox 100% on R/A; mw2 12/20 22:04 Body Mass Index 30.56 (107.95 kg, 187.96 cm) ak1 MDM: 12/20 22:52 Patient medically screened. kb 12/21 00:27 Data reviewed: vital signs, nurses notes. Data interpreted: Pulse oximetry: on room air kb is 100 %. Interpretation: normal. Counseling: I had a detailed discussion with the patient and/or guardian regarding: the historical points, exam findings, and any diagnostic results supporting the discharge/admit diagnosis, lab results, radiology results, the need for outpatient follow up, a family practitioner, to return to the emergency department if symptoms worsen or persist or if there are any questions or concerns that arise at home. 12/20 23:00 Order name: Urine Microscopic Only; Complete Time: 23:45 kb 12/20 23:36 Order name: Urine Dipstick--Ancillary (enter results); Complete Time: 00:24 ar5 12/20 23:00 Order name: Urine Test (obtain specimen); Complete Time: 23:33 kb 12/20 23:36 Order name: Urine --Ancillary (enter results); Complete Time: 00:24 ar5 12/20 23:39 Order name: Urine Culture EDHI 12/20 23:45 Order name: CT Stone Protocol 12/20 23:00 Order name: Urine Dipstick-Ancillary (obtain specimen); Complete Time: 23:33 kb Administered Medications: No medications were administered Disposition: 07:12 Co-signature as Attending Physician, Adonis Fonseca MD Available for consultation at ps1 all times. . Disposition: 12/21/18 01:26 Discharged to Home. Impression: Flank Pain. - Condition is Stable. - Discharge Instructions: Flank Pain, [id number]-ah-Wcqg. - Medication Reconciliation Form, Thank You Letter, Antibiotic Education, Prescription Opioid Use form. - Follow up: Emergency Department; When: As needed; Reason: Worsening of condition. Follow up: Private Physician; When: 2 - 3 days; Reason: Recheck today's complaints, Continuance of care, Re-evaluation by your physician. Signatures: Dispatcher [employer] ED AlejoBrielle, COAT EXAMINER-C COAT EXAMINER-Stefanie Bernal, RN RN bb Kerry Davidson RN RN ak1 Adonis Fonseca MD MD ps1 Corrections: (The following items were deleted from the chart) 01:41 01:26 12/21/2018 01:26 Discharged to Home. Impression: Flank Pain. Condition is Stable. bb Forms are Medication Reconciliation Form, Thank You Letter, Antibiotic Education, Prescription Opioid Use. Follow up: Emergency Department; When: As needed; Reason: Worsening of condition. Follow up: Private Physician; When: 2 - 3 days; Reason: Recheck today's complaints, Continuance of care, Re-evaluation by your physician. kb
--- NOTE | 2018-12-21 01:27 | ER ---
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 Transition of care: ak1 patient was not received from another setting of care. Onset of symptoms is unknown. Risk Assessment: Do you want to hurt yourself or someone else? Patient reports no desire to harm self or others. Initial Sepsis Screen: Does the patient meet any 2 criteria? No. Patient's initial sepsis screen is negative. Does the patient have a suspected source of infection? No. Patient's initial sepsis screen is negative. Care prior to arrival: None. 22:05 Method Of Arrival: Ambulatory ak1 22:05 Acuity: JULIENNE 4 ak1 Triage Assessment: 22:04 General: Appears in no apparent distress. Behavior is calm, cooperative. 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 - Social history:: Smoking status: Patient uses tobacco products, denies chronic smoking, but will smoke occasionally. - Ebola Screening: : No symptoms or risks identified at this time. Screenin/06 00:31 Abuse screen: Denies threats or abuse. Nutritional screening: No deficits noted. bb Tuberculosis screening: No symptoms or risk factors identified. Fall Risk None identified. Assessment: 00:11 Reassessment: pt not in room at this time. bb 00:31 General: Appears in no apparent distress. uncomfortable, Behavior is calm, cooperative. bb Pain: Complains of pain in right flank. Neuro: Level of Consciousness is awake, alert, obeys commands, Oriented to person, place, time, situation. Cardiovascular: No deficits noted. Respiratory: Respiratory effort is even, unlabored, Respiratory pattern is regular. GI: Abdomen is non-distended, Reports upper abdominal pain. Derm: Skin is pink, warm \T\ dry. Musculoskeletal: Circulation, motion, and sensation intact. 01:40 Reassessment: Patient is alert, oriented x 3, equal unlabored respirations, skin bb warm/dry/pink. pt verbalized understanding of and agrees to plan of care discharge instructions given pt ambulated with steady gait to exit. Vital Signs: 12/20 22:04 BP 118 / 58; Pulse 91; Resp 18; Temp 98.1; Pulse Ox 100% on R/A; Weight 107.95 kg (R); ak1 Height 6 ft. 2 in. (187.96 cm) (R); Pain 10/10; 12/21 00:47 BP 123 / 66; Pulse 94; Resp 18; Temp 98.3(O); Pulse Ox 100% on R/A; mw2 01:37 BP 120 / 59; Pulse 91; Resp 16; Temp 97.9(O); Pulse Ox 100% on R/A; mw2 08 22:04 Body Mass Index 30.56 (107.95 kg, 187.96 cm) ak1 ED Course: 12/20 22:00 Patient arrived in ED. ag3 22:04 Arm band placed on Patient placed in waiting room, Patient notified of wait time. ak1 22:05 Triage completed. ak1 22:11 Bri[facility] Dhill[facility]C [facility] kb 22:11 Adonis Fonseca MD is Attending Physician. kb 12/21 00:16 CT Stone Protocol In Process Unspecified. EDMS 00:31 Patient has correct armband on for positive identification. Call light in reach. bb 01:40 Stefanie Sigala, SUMAAY is Primary Nurse. bb 01:41 No provider procedures requiring assistance completed. Patient did not have IV access bb during this emergency room visit. Administered Medications: No medications were administered Outcome: 01:26 Discharge ordered by . kb 01:41 Discharged to home ambulatory. bb 01:41 Condition: stable 01:41 Discharge instructions given to patient, Instructed on discharge instructions, follow up and referral plans. Demonstrated understanding of instructions, follow-up care. 01:41 Patient left the ED. bb Signatures: Dispatcher [employer] EDBrielle Evangelista, EDWINA SWEET-Stefanie Bernal RN RN Kerry Nichols RN RN ak1 Jacinto Grimm 2 Kym Plummer 3
[2018-12-21 02:42] VITALS: O2SAT 100
[2018-12-21 02:45] VITALS: BP 120/59; TEMP 97.9
--- NOTE | 2018-12-21 09:47 | RAD REPORT ---
EXAM DESCRIPTION: CT - Stone Protocol - 12/21/2018 6:15 am CLINICAL HISTORY: The patient is 38 years old and is Female; FLANK PAIN TECHNIQUE: Axial computed tomography images of the abdomen and pelvis without intravenous contrast. Sagittal and coronal reformatted images were created and reviewed. This CT exam was performed usi ng one or more of the following dose reduction techniques: automated exposure control, adjustment o f the mA and/or kV according to patient size, and/or use of iterative reconstruction technique. COMPARISON: CT abdomen and pelvis without contrast dated July 13, 2018. FINDINGS: LUNG BASES: Unremarkable. No mass. No consolidation. ABDOMEN: LIVER: Unremarkable. GALLBLADDER AND BILE DUCTS: Prior cholecystectomy. No ductal dilation. PANCREAS: Unremarkable. No ductal dilation. SPLEEN: Unremarkable. No splenomegaly. ADRENALS: Unremarkable. No mass. KIDNEYS AND URETERS: Unremarkable. No obstructing stones. No hydronephrosis. STOMACH AND BOWEL: Unremarkable. No obstruction. No mucosal thickening. PELVIS: APPENDIX: The appendix is seen and is within normal limits. BLADDER: Unremarkable. No stones. REPRODUCTIVE: Small amount of endometrial fluid. ABDOMEN and PELVIS: INTRAPERITONEAL SPACE: Small amount of free pelvic fluid. No free air. BONES/JOINTS: Small retrolisthesis of L5 on S1. No acute fracture. No dislocation. SOFT TISSUES: Unremarkable. VASCULATURE: Unremarkable. No abdominal aortic aneurysm. LYMPH NODES: Unremarkable. No enlarged lymph nodes. IMPRESSION: 1. No acute abdominal or pelvic abnormality. No obstructive uropathy. 2. Incompletely characterized pelvic changes, likely physiologic. Electronically signed by: Jc Le DO 12/21/2018 1:07 AM CDT Due to temporary technical issues with the PACS/Fluency reporting system, reports are being signed by the in house radiologist as a courtesy to ensure prompt reporting. The interpreting radiologist is f fabianly responsible for the content of the report.
== END 2018-12-21 01:41 | disposition home or self-care (01) ==
LOC: ER 21:43
DX: R10.9 Unspecified abdominal pain (principal); K21.9 Gastro-esophageal reflux disease without esophagitis; I10 Essential (primary) hypertension; Z88.5 Allergy status to narcotic agent; Z88.2 Allergy status to sulfonamides; Z72.0 Tobacco use
CPT/HCPCS: 74176; 76377; 81003; 81015; 81025; 87086; 87088; 99283

== ENCOUNTER 2019-01-27 21:29 | Emergency (ER) | payer OTHER ==
--- OUTSIDE RECORDS SUMMARY | 2019-01-27 21:30 | XMS REPORT ---
:1980 [facility] Address [address] [place] [address] [address] [place] [address] Care Team Providers Name Role Phone DR [...] Department ID 2018-10-15 2018-10-15 Emergency E [facility] [id number] 02:31:00 03:40:00 MATT 2018-10-01 2018-10-01 Outpatient C [facility] RAD [id number] 08:05:00 23:59:00 LORENA Results Test Description Test Time Test Comments Text Results Atomic Results Result Comments CT ABDOMEN AND 2018-10-01 08:51:45 EXAM: CT ABDOMEN AND PELVIS WITH PELVIS WITH CONTRAST.LOCATION: D4.HISTORY: [id number]: CONTRAST Disorder of [id number]: Benign neoplasm of colon.COMPARISON:None.TECHNIQUE:CT abdomen and pelvis [...]
--- OUTSIDE RECORDS SUMMARY | 2019-01-27 21:31 | XMS REPORT | Summary of Care ---
:1980 Author Organization [facility] Address [address] [place] [address] Care Team Providers Name Role Phone Jl Martins MD Primary Care Provider Encounter Details Date Type Department Care Team Description 01/05/2019 Abstract [facility] Orthopaedic [place], Pain ( Primary Dx) Surgery- [address] [place], [place] [address] [place], [place] [phone] [address] [phone] Allergies Active Allergy Reactions Severity Noted Date Comments Sulfa (Sulfonamide Antibiotics) Hives 10/28/2013 Tramadol Nausea and/or Vomiting 07/04/2015 documented as of this encounter (statuses as of 01/05/2019) Medications Medication Sig Dispensed Refills Start Date [...] as of this encounter (statuses as of 01/05/2019) Active Problems Problem Noted Date Trichomonal vulvovaginitis [...] Need for prophylactic vaccination with combined 07/02/2015 fgmegawkav-kropuyg-kmldqowza (DTP) vaccine BMI 34.0-34.9,adult 07/02/2015 documented as of this encounter (statuses as of 01/05/2019) Immunizations Name Administration Dates Next Due Influenza [...] Treatment Date Type Specialty Care Team Description 01/05/2019 Appointment Radiology Cyrus Bateman MD [address] [facility] [address] [place], [place] [address] 01/06/2019 Office Visit Orthopedic Surgery Cyrus Bateman MD [address] [facility] [address] [place], [place] [address] 03/11/2019 Nurse Visit Obstetrics & Gynecology Nurse, [facility] Name Type Priority Associated Diagnoses Order Schedule XR LUMBAR SPINE 2 VW IMAGING Routine Pain Expected: 01/05/2019, Expires: 01/06/2020 Health Maintenance Due Date Last Done Comments PNEUMOCOCCAL 0-64 YEARS COMBINED SERIES (1 01/08/1988 of 1 - PPSV23) VARICELLA VACCINES (1 of 2 - 13+ 2-dose 1995 series) INFLUENZA VACCINE (#1) 2019 04/19/2018 PAP SMEAR 10/15/2022 10/15/2017, 10/28/2013 DTaP,Tdap,and Td Vaccines (3 - Td) 07/02/2025 07/02/2015, 12/28/1996 documented as of this encounter Results Not on filedocumented in this encounter Visit Diagnoses Diagnosis Pain - Primary Generalized pain documented in this encounter Insurance Payer Benefit Plan / Subscriber ID Effective Phone Address Type Group Dates [employer] xxxxxxxxx 2017-Don [place] [address] [place] [address] documented as of this encounter
--- OUTSIDE RECORDS SUMMARY | 2019-01-27 21:31 | XMS REPORT | Summary of Care ---
:1980 Author Organization [address] [address] Care Team Providers Name Role Phone Jl Martins MD Primary Care Provider Reason for Visit Reason Comments Follow-up [facility]ander [facility] ED f/u Encounter Details Date Type Department Care Team Description 12/21/2018 Patient Outreach [facility] Holly Harris, Follow-up ( [facility] Care SUMAYA [address] ED f/u) [place] [address] Allergies Active Allergy Reactions Severity Noted Date Comments Sulfa (Sulfonamide Antibiotics) Hives 10/28/2013 Tramadol Nausea and/or Vomiting 07/04/2015 documented as of this encounter (statuses as of 12/21/2018) Medications Medication Sig Dispensed Refills Start Date [...] as of this encounter (statuses as of 12/21/2018) Active Problems Problem Noted Date Trichomonal vulvovaginitis [...] Need for prophylactic vaccination with combined 07/02/2015 yvkiccnvam-dfvoeux-inuunhxrq (DTP) vaccine BMI 34.0-34.9,adult 07/02/2015 documented as of this encounter (statuses as of 12/21/2018) Immunizations Name Administration Dates Next Due Influenza [...] Signs Not on filedocumented in this encounter Progress Notes Holly Harris RN - 12/21/2018 2:36 PM Renamasoud Quarles is a 38 year old female. Attempted to contact patient to help schedule a follow up appointment with her PCP following her recent ED visit, but she did not answer the call. Left a voicemail message requesting call back. Holly SILVER, RN [facility] Care Management [phone] documented in this encounter Plan of Treatment Date Type Specialty Care Team Description 01/06/2019 Office Visit Orthopedic Surgery Cyrus Bateman MD [address] [facility] [address] [place] [address] [phone] 03/11/2019 Nurse Visit Obstetrics & Gynecology Nurse, [...] xxxxxxxxx 2017-Don [place] [address] [place] [address] documented as of this encounter
--- OUTSIDE RECORDS SUMMARY | 2019-01-27 21:31 | XMS REPORT | Summary of Care ---
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 [facility] Procedures CONSULT/REFERRAL PHYSICAL THERAPY Preferred location: If other, use Department field Tarun MD [address] [place] [address] MRI/CAT Scan (Routine) Status Reason Specialty Diagnoses / Referred By Referred To Procedures Contact Contact New Request Diagnostic Diagnoses Acute right-sided low back pain with sciatica, sciatica laterality unspecified 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 [facility], Radiology Procedures MR LUMBAR SPINE WO CONTRAST Cyrus Mcneil MD [address] [place] [address] Reason for Visit Reason Comments New Patient back pain Encounter Details Date Type Department Care Team Description 01/06/2019 Office Visit [facility] Acute right-sided low back pain with sciatica, sciatica laterality unspecified (Primary Dx); Orthopaedic Surgery- P, MD Sotos' syndrome; [facility] [address] [facility] 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 Vaginal yeast infection naproxen (NAPROSYN) Take 1 tablet by 60 tablet 1 01/06/2019 Active 500 mg mouth 2 (two) tabletIndications: times daily with Acute right-sided low meals. 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 documented as of this encounter (statuses as of 01/06/2019) Active Problems Problem Noted Date Trichomonal vulvovaginitis [...] Need for prophylactic vaccination with combined 07/02/2015 pmnguwupij-xeqvyzr-qnmjmiddi (DTP) vaccine BMI 34.0-34.9,adult 07/02/2015 documented as of this encounter (statuses as of 01/06/2019) Immunizations Name Administration Dates Next Due Influenza [...] of this encounter Last Filed Vital Signs Vital Sign Reading Time Taken Comments Blood Pressure 107/66 01/06/2019 11:27 AM CDT Pulse 86 01/06/2019 11:27 AM CDT Temperature 36.5 C (97.7 F) 01/06/2019 11:27 AM CDT Respiratory Rate - - Oxygen Saturation - - Inhaled Oxygen Concentration - - Weight 98.4 kg (217 lb) 01/06/2019 11:27 AM CDT Height 188 cm (6' 2") 01/06/2019 11:27 AM CDT Body Mass Index 27.86 01/06/2019 11:27 AM CDT documented in this encounter Progress Notes Cyrus Bateman MD - 01/06/2019 11:00 AM CDT 38 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 Last was one week long, usually were a few days. Last time was November and seems like it is more often; last one was the worst, prior episode was in September. Worse standing and with walking. Allergies to Sulfa PMH: Prognathia, difficulties eating, no OMFS consultation Meds: Takes Acetaminophen only FH: NOS, dad and mom average sized SH: No alcohol, not working due to disability, [place] ROS: Vision, eye problems needed glasses, 18 point ROS otherwise was negative. STEPHON 42% PE: 01/06/19 1127 Weight: 98.4 kg (217 lb) Height: 74" (188 cm) Stable height since teenager Neuro intact. Poor ROM of spine due to pain Normal DTRs, neg SLR. Skin CDI. Balanced in coronal and sagittal planes. 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 MRI is needed to assess the canal for disc pathology. Consult for OMFS to eval for prognathia. Follow up after MRI. 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 Health Maintenance Due Date Last Done Comments PNEUMOCOCCAL 0-64 YEARS COMBINED SERIES (1 01/08/1988 of 1 - PPSV23) VARICELLA VACCINES (1 of 2 - 13+ 2-dose 1995 series) INFLUENZA VACCINE (#1) 2019 04/19/2018 PAP SMEAR 10/15/2022 10/15/2017, 10/28/2013 DTaP,Tdap,and Td Vaccines (3 - Td) 07/02/2025 07/02/2015, 12/28/1996 documented as of this encounter Results Not on filedocumented in this encounter Visit Diagnoses Diagnosis Acute right-sided low back pain with sciatica, sciatica laterality unspecified - Primary 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
--- OUTSIDE RECORDS SUMMARY | 2019-01-27 21:31 | XMS REPORT | Summary of Care ---
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 [facility] Procedures CONSULT/REFERRAL PHYSICAL THERAPY Preferred location: If other, use Department field Tarun MD [address] [place] [address] MRI/CAT Scan (Routine) Status Reason Specialty Diagnoses / Referred By Referred To Procedures Contact Contact New Request Diagnostic Diagnoses Acute right-sided low back pain with sciatica, sciatica laterality unspecified 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 [facility], Radiology Procedures MR LUMBAR SPINE WO CONTRAST Cyrus Mcneil MD [address] [place] [address] Reason for Visit Reason Comments New Patient back pain Encounter Details Date Type Department Care Team Description 01/06/2019 Office Visit [facility] Acute right-sided low back pain with sciatica, sciatica laterality unspecified (Primary Dx); Orthopaedic Surgery- P, MD Sotos' syndrome; [facility] [address] [facility] 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 [address] [facility] [address] [place] [address] [phone] Allergies Active Allergy Reactions Severity Noted Date [...] Need for prophylactic vaccination with combined 07/02/2015 nvhchfwzjt-nsjlamj-dtrqroayb (DTP) vaccine BMI 34.0-34.9,adult 07/02/2015 documented as [...] No alcohol, not working due to disability, [place] ROS: Vision, eye problems needed glasses, 20 [...] 03/11/2019 Nurse Visit Obstetrics & Gynecology Nurse, [facility] Name Type Priority Associated Diagnoses Order [...] [address] [place] [id number] [place] [address] ([place]) [place] [address] documented as of this encounter
--- OUTSIDE RECORDS SUMMARY | 2019-01-27 21:31 | XMS REPORT | Summary of Care ---
:1980 Author Organization [facility] Address [address] [place] [address] Care Team Providers Name Role Phone Jl Martins MD Primary Care Provider Reason for Visit Reason Comments Assessment Encounter Details Date Type Department Care Team Description 12/27/2018 Telephone [facility] Eun Mitchell PA-C Assessment Healthcare- [address], [facility] [address] [place] [address] [place] [address] Allergies Active Allergy Reactions Severity Noted Date Comments Sulfa (Sulfonamide Antibiotics) Hives 10/28/2013 Tramadol Nausea and/or Vomiting 07/04/2015 documented as of this encounter (statuses as of 12/27/2018) Medications Medication Sig Dispensed Refills Start Date [...] as of this encounter (statuses as of 12/27/2018) Active Problems Problem Noted Date Trichomonal vulvovaginitis [...] Need for prophylactic vaccination with combined 07/02/2015 cigolvuugp-wngqnbv-ioyzognjn (DTP) vaccine BMI 34.0-34.9,adult 07/02/2015 documented as of this encounter (statuses as of 12/27/2018) Immunizations Name Administration Dates Next Due Influenza [...] Office Visit Orthopedic Surgery Cyrus Bateman MD [address] [facility] [address] [place] [address] [phone] 03/11/2019 Nurse Visit Obstetrics & Gynecology Nurse, [facility] Health Maintenance Due Date Last [...] xxxxxxxxx 2017-Don [place] [id number] [place] [address] documented as of this encounter
[2019-01-27 21:59] LABS: Urine Blood 3+ (NEG); Urine Glucose NEGATIVE (NEG); Urine Protein 1+ (NEG)
--- NOTE | 2019-01-27 23:31 | ER ---
Nurse's Notes [facility] Name: Tg Quarles Age: 39 yrs Sex: Female : 1980 Arrival Date: 01/27/2019 Time: 21:31 Bed 25 Private MD: Diagnosis: Trichomoniasis Presentation: 01/27 21:42 Presenting complaint: Patient states: i have creamy vaginal discharge for one week with mg2 vaginal pain as well. Transition of care: patient was not received from another setting of care. Onset of symptoms was January 2019. Risk Assessment: Do you want to hurt yourself or someone else? Patient reports no desire to harm self or others. Initial Sepsis Screen: Does the patient meet any 2 criteria? No. Patient's initial sepsis screen is negative. Does the patient have a suspected source of infection? No. Patient's initial sepsis screen is negative. Care prior to arrival: None. 21:42 Method Of Arrival: Ambulatory mg2 21:42 Acuity: JULIENNE 4 mg2 Triage Assessment: 21:44 General: Appears in no apparent distress. comfortable, Behavior is calm, cooperative. mg2 Pain: Complains of pain in VAGINA Pain does not radiate. Pain currently is 2 out of 10 on a pain scale. Quality of pain is described as aching, Pain began gradually, Is intermittent. EENT: No signs and/or symptoms were reported regarding the EENT system. Neuro: Level of Consciousness is awake, alert, obeys commands, Oriented to person, place, time, situation. Cardiovascular: Capillary refill < 3 seconds Patient's skin is warm and dry. Respiratory: Airway is patent Respiratory effort is even, unlabored, Respiratory pattern is regular, symmetrical. GI: No signs and/or symptoms were reported involving the gastrointestinal system. : Reports discharge, from vagina that is. Derm: Skin is intact, is healthy with good turgor, Skin is pink, warm \T\ dry. normal. Musculoskeletal: Circulation, motion, and sensation intact. Capillary refill < 3 seconds. 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 - Social history:: Smoking status: Patient/guardian denies using tobacco, Patient/guardian denies using alcohol, street drugs, IV drugs. - Ebola Screening: : No symptoms or risks identified at this time. Screenin:46 Abuse screen: Denies threats or abuse. Denies injuries from another. Nutritional mg2 screening: No deficits noted. Tuberculosis screening: No symptoms or risk factors identified. Fall Risk None identified. Assessment: 21:46 Reassessment: see triage assessment. mg2 01/28 00:03 Reassessment: Patient appears in no apparent distress at this time. mg2 Vital Signs: 01/27 21:45 BP 132 / 79; Pulse 95; Resp 18; Temp 98.1; Pulse Ox 100% on R/A; Weight 98.43 kg; mg2 Height 6 ft. 2 in. (187.96 cm); Pain 3/10; 21:45 Body Mass Index 27.86 (98.43 kg, 187.96 cm) mg2 ED Course: 21:31 Patient arrived in ED. ag3 21:42 Tayo Cain, SUMAYA is Primary Nurse. mg2 21:43 Triage completed. mg2 21:45 Arm band placed on. mg2 21:46 August Reynolds PA is PHCP. jr8 21:46 Darrian Eason MD is Attending Physician. jr8 21:46 Patient did not have IV access during this emergency room visit. mg2 22:52 Patient has correct armband on for positive identification. mg2 01/28 00:02 Assist provider with pelvic exam: Set up pelvic tray. Performed by August HARRIS mg2 Specimens sent to lab. Patient tolerated well. Administered Medications: 01/27 23:37 Drug: Rocephin (cefTRIAXone) 250 mg Route: IM; Site: right gluteus; mg2 01/28 00:03 Follow up: Response: No adverse reaction mg2 01/27 23:37 Drug: Zithromax 1 grams Route: PO; mg2 01/28 00:03 Follow up: Response: No adverse reaction mg2 01/27 23:38 Drug: Flagyl 2 grams Route: PO; mg2 01/28 00:03 Follow up: Response: No adverse reaction mg2 Outcome: 01/27 23:30 Discharge ordered by MD. stanton 01/28 00:03 Discharged to home ambulatory. mg2 Condition: stable Discharge instructions given to patient, Instructed on discharge instructions, follow up and referral plans. Demonstrated understanding of instructions, follow-up care. 00:04 Patient left the ED. mg2 Signatures: August Reynolds PA PA jr8 Tayo Cain RN RN mg2 Kym Plummer ag3 Corrections: (The following items were deleted from the chart) 00:02 01/27 21:46 No provider procedures requiring assistance completed. mg2 mg2
--- NOTE | 2019-01-27 23:31 | EDPHYS ---
Physician Documentation [facility] Name: Tg Quarles Age: 39 yrs Sex: Female : 1980 Arrival Date: 01/27/2019 Time: 21:31 Bed 25 Private MD: [facility] Physician Darrian Eason HPI: 01/27 22:45 This 39 yrs old Female presents to ER via Ambulatory with complaints of jr8 Vaginal Discharge. 22:45 The patient presents with vaginal discharge, that is a small amount of white discharge, jr8 patient has had similar discharge in the past. Onset: The symptoms/episode began/occurred acutely, 2 day(s) ago. Modifying factors: The symptoms are alleviated by nothing, the symptoms are aggravated by nothing. Associated signs and symptoms: Pertinent positives: vaginal itching. Severity of symptoms: At their worst the symptoms were mild, in the emergency department the symptoms are unchanged. The patient is sexually active, reportedly has a single partner. The patient has experienced a previous episode. The patient has not recently seen a physician. Patient stated that she had intercourse about 1 week ago. Now having discharge. History of BV in past. Feels exactly the same as last time. Denies any other symptoms . 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 - Social history:: Smoking status: Patient/guardian denies using tobacco, Patient/guardian denies using alcohol, street drugs, IV drugs. - Ebola Screening: : No symptoms or risks identified at this time. ROS: 22:45 Eyes: Negative for injury, pain, redness, and discharge, ENT: Negative for injury, jr8 pain, and discharge, Neck: Negative for injury, pain, and swelling, Cardiovascular: Negative for chest pain, palpitations, and edema, Respiratory: Negative for shortness of breath, cough, wheezing, and pleuritic chest pain, Abdomen/GI: Negative for abdominal pain, nausea, vomiting, diarrhea, and constipation, Back: Negative for injury and pain, MS/Extremity: Negative for injury and deformity, Skin: Negative for injury, rash, and discoloration, Neuro: Negative for headache, weakness, numbness, tingling, and seizure. 22:45 : Positive for vaginal discharge, vaginal itching, Negative for urinary symptoms, pelvic pain, flank pain, burning with urination. Exam: 22:45 Eyes: Pupils equal round and reactive to light, extra-ocular motions intact. Lids and jr8 lashes normal. Conjunctiva and sclera are non-icteric and not injected. Cornea within normal limits. Periorbital areas with no swelling, redness, or edema. ENT: Nares patent. No nasal discharge, no septal abnormalities noted. Tympanic membranes are normal and external auditory canals are clear. Oropharynx with no redness, swelling, or masses, exudates, or evidence of obstruction, uvula midline. Mucous membranes moist. Neck: Trachea midline, no thyromegaly or masses palpated, and no cervical lymphadenopathy. Supple, full range of motion without nuchal rigidity, or vertebral point tenderness. No Meningismus. Cardiovascular: Regular rate and rhythm with a normal S1 and S2. No gallops, murmurs, or rubs. Normal PMI, no JVD. No pulse deficits. Respiratory: Lungs have equal breath sounds bilaterally, clear to auscultation and percussion. No rales, rhonchi or wheezes noted. No increased work of breathing, no retractions or nasal flaring. Abdomen/GI: Soft, non-tender, with normal bowel sounds. No distension or tympany. No guarding or rebound. No evidence of tenderness throughout. Back: No spinal tenderness. No costovertebral tenderness. Full range of motion. Skin: Warm, dry with normal turgor. Normal color with no rashes, no lesions, and no evidence of cellulitis. MS/ Extremity: Pulses equal, no cyanosis. Neurovascular intact. Full, normal range of motion. Neuro: Awake and alert, GCS 15, oriented to person, place, time, and situation. Cranial nerves II-XII grossly intact. Motor strength 5/5 in all extremities. Sensory grossly intact. Cerebellar exam normal. Normal gait. Vital Signs: 21:45 BP 132 / 79; Pulse 95; Resp 18; Temp 98.1; Pulse Ox 100% on R/A; Weight 98.43 kg; mg2 Height 6 ft. 2 in. (187.96 cm); Pain 3/10; 21:45 Body Mass Index 27.86 (98.43 kg, 187.96 cm) mg2 MDM: 21:[address] [facility] 23:26 Data reviewed: vital signs, nurses notes, lab test result(s), and as a result, I will [facility] discharge patient. Data interpreted: Pulse oximetry: on room air is 100 %. Interpretation: normal. Counseling: I had a detailed discussion with the patient and/or guardian regarding: the historical points, exam findings, and any diagnostic results supporting the discharge/admit diagnosis, lab results, the need for outpatient follow up, a family practitioner, to return to the emergency department if symptoms worsen or persist or if there are any questions or concerns that arise at home. 01/27 21:53 Order name: Urine Dipstick--Ancillary (enter results); Complete Time: 22:21 [facility] 01/27 21:53 Order name: Urine --Ancillary (enter results); Complete Time: 22:21 [facility] 01/27 22:21 Order name: GC (GONORR/CHLAMYDIA) Probe [facility] 01/27 22:21 Order name: Wet Prep; Complete Time: 23:26 [facility] 01/27 21:46 Order name: Urine Dipstick-Ancillary (obtain specimen); Complete Time: 21:46 [facility] 01/27 21:46 Order name: Urine Test (obtain specimen); Complete Time: 21:46 [facility] 01/27 22:21 Order name: Pelvic Exam Setup; Complete Time: 22:35 [facility] Administered Medications: 23:37 Drug: Rocephin (cefTRIAXone) 250 mg Route: IM; Site: right gluteus; mg2 01/28 00:03 Follow up: Response: No adverse reaction [facility] 01/27 23:37 Drug: Zithromax 1 grams Route: PO; mg2 01/28 00:03 Follow up: Response: No adverse reaction [facility] 01/27 23:38 Drug: Flagyl 2 grams Route: PO; mg2 01/28 00:03 Follow up: Response: No adverse reaction mg2 Disposition: 01/27/19 23:30 Discharged to Home. Impression: Trichomoniasis. - Condition is Stable. - Discharge Instructions: Trichomoniasis. - Medication Reconciliation Form, Thank You Letter, Antibiotic Education, Prescription Opioid Use form. - Follow up: Private Physician; When: As needed; Reason: Recheck today's complaints, Continuance of care, Re-evaluation by your physician. - Problem is new. - Symptoms have improved. Addendum: 01/31/2019 08:29 Co-signature as Attending Physician, Darrian Eason MD I agree with the assessment and c ugarte plan of care. Signatures: Dispatcher [employer] EDTX Darrian Eason MD MD cha Roszak, Josh, PA PA jr8 Tayo Cain RN RN mg2 Corrections: (The following items were deleted from the chart) 01/28 00:04 01/27 23:30 01/27/2019 23:30 Discharged to Home. Impression: Trichomoniasis. Condition mg2 is Stable. Forms are Medication Reconciliation Form, Thank You Letter, Antibiotic Education, Prescription Opioid Use. Follow up: Private Physician; When: As needed; Reason: Recheck today's complaints, Continuance of care, Re-evaluation by your physician. Problem is new. Symptoms have improved. jr8
[2019-01-27] MEDS ORDERED: metroNIDAZOLE 500 MG TABLET ONE (23:32)
[2019-01-27] MEDS ORDERED: CEFTRIAXONE 250 MG/VIAL ONE (23:32)
[2019-01-27] MEDS ORDERED: AZITHROMYCIN 250 MG TAB ONE (23:32)
[2019-01-27] MEDS ORDERED: WATER FOR INJ,STERILE 10 ML ONE (23:32)
[2019-02-01 05:00] LABS: C.trachomatis RNA,TMA Not Detected (Not Detected)
== END 2019-01-28 00:04 | disposition home or self-care (01) ==
LOC: ER 21:29
DX: A59.9 Trichomoniasis, unspecified (principal); I10 Essential (primary) hypertension; Z88.2 Allergy status to sulfonamides; Z88.5 Allergy status to narcotic agent
CPT/HCPCS: 81025; 87210; 81003; 87590; 87490; 96372; 99283; J0696

== ENCOUNTER 2020-11-11 02:59 | Emergency (ER) | payer OTHER ==
--- OUTSIDE RECORDS SUMMARY | 2020-11-11 03:02 | XMS REPORT | Continuity of Care Document ---
:1980 Author Organization [facility] t Address [address] [place] [address] Care Team Providers Name Role Phone Candis Haider MD Attending Clinician DR ARNOLDO Attending Clinician Unavailable PERCY Attending Clinician Unavailable DR ARNOLDO Admitting Clinician Unavailable PERCY Admitting Clinician Unavailable Problems This patient has no known problems. Allergies, Adverse Reactions, Alerts This patient has no known allergies or adverse reactions. Medications This patient has no known medications. Procedures This patient has no known procedures. Encounters Start End Encounter Admission Attending Care Care Encounter Source Date/Time Date/Time Type Type Clinicians Facility Department ID 2020-11-08 2020-11-08 Office Meliza Gloria [id number] 11:09:23 12:22:47 Visit , [facility] [id number] M s and [id number] Adult [id number] [facility] 2018-10-15 2018-10-15 Emergency E DARSHANA MCLAUGHLIN [facility] [id number] [place] 02:31:00 03:40:00 [facility] 2018-10-01 2018-10-01 Outpatient C DARSHANA GREER RAD [id number] [place] 08:05:00 23:59:00 [facility] Results Test Description Test Time Test Comments Results Result [facility] e Comments CT ABDOMEN AND 2018-10-01 EXAM: CT ABDOMEN AND PELVIS WITH 08:51:45 PELVIS WITH CONTRAST CONTRAST.LOCATION: D4.HISTORY: [id number]: Disorder of [id number]: Benign neoplasm of colon.COMPARISON:None. TECHNIQUE:CT abdomen and pelvis was performed with the use of IV contrast (98 mLOmnipaque 300). Sagittal and coronal reconstructed images were available forreview.This exam was performed according to our departmental dose-optimizationprogr am, which includes automated exposure control, adjustment of the mA and/orkV according to patient size, and/or use of iterative reconstruction technique.FINDINGS:Low er chest:The lung bases are clear. Heart size [...] is present. There is no retroperitoneal ormesenteric lymphadenopathy.Pelvis :The urinary bladder appears normal. 4.0 cm left [...]
[2020-11-11] MEDS ORDERED: KETOROLAC 30 MG/ML INJ ONE (05:27)
--- NOTE | 2020-11-11 06:30 | ER ---
Nurse's Notes [facility] Name: Tg Quarles Age: 40 yrs Sex: Female : 1980 Arrival Date: 11/11/2020 Time: 03:05 Bed 20 Private MD: Diagnosis: Spinal stenosis, cervical region;Spondylolysis, cervical region;Radiculopathy, cervical region Presentation: 11/11 03:42 Chief complaint: Patient states: she has had a stiff neck and neck pain x 4 days she bb has tried OTC medication, massage and other interventions but it is not getting any better denies fever. Coronavirus screen: At this time, the client does not indicate any symptoms associated with coronavirus-19. Ebola Screen: No symptoms or risks identified at this time. Initial Sepsis Screen: Does the patient meet any 2 criteria? No. Patient's initial sepsis screen is negative. Does the patient have a suspected source of infection? No. Patient's initial sepsis screen is negative. Risk Assessment: Do you want to hurt yourself or someone else? Patient reports no desire to harm self or others. Onset of symptoms was October 2020. 03:42 Method Of Arrival: Ambulatory bb 03:42 Acuity: JULIENNE 4 bb Triage Assessment: 03:45 General: Appears uncomfortable, Behavior is calm, cooperative. Pain: Complains of pain bb in neck Pain currently is 10 out of 10 on a pain scale. Neuro: Level of Consciousness is awake, alert, obeys commands, Oriented to person, place, time, situation. Cardiovascular: Capillary refill < 3 seconds Patient's skin is warm and dry. Respiratory: Respiratory effort is even, unlabored. GI: No signs and/or symptoms were reported involving the gastrointestinal system. Derm: Skin is pink, warm \T\ dry. Musculoskeletal: Circulation, motion, and sensation intact. Reports pain in neck. 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 - Social history:: Smoking status: Patient reports the use of cigarette tobacco products, denies chronic smoking, but will smoke occasionally. Screenin:38 Abuse screen: Denies threats or abuse. Denies injuries from another. Nutritional jm8 screening: No deficits noted. Tuberculosis screening: No symptoms or risk factors identified. Fall Risk None identified. Assessment: 04:36 General: Appears in no apparent distress. comfortable, Behavior is calm, cooperative, jm8 appropriate for age. Pain: Complains of pain in neck Pain currently is 10 out of 10 on a pain scale. Quality of pain is described as crampy, shooting, tingling, Pain began 4 days ago. Neuro: No deficits noted. Level of Consciousness is awake, alert, obeys commands, Oriented to person, place, time. Cardiovascular: No deficits noted. Respiratory: No deficits noted. Airway is patent Trachea midline Respiratory effort is even, unlabored, Respiratory pattern is regular, symmetrical. GI: No deficits noted. No signs and/or symptoms were reported involving the gastrointestinal system. : No deficits noted. No signs and/or symptoms were reported regarding the genitourinary system. EENT: Reports right-sided neck pain and stiffness. Derm: No deficits noted. No signs and/or symptoms reported regarding the dermatologic system. Musculoskeletal: No deficits noted. No signs and/or symptoms reported regarding the musculoskeletal system. Vital Signs: 03:42 BP 114 / 62; Pulse 86; Resp 18 S; Temp 98.5(O); Pulse Ox 99% on R/A; Weight 99.34 kg bb (R); Height 6 ft. 2 in. (187.96 cm) (R); Pain 10/10; 06:38 BP 115 / 74; Pulse 84; Resp 16; Pulse Ox 99% on R/A; jm8 03:42 Body Mass Index 28.12 (99.34 kg, 187.96 cm) ED Course: 03:05 Patient arrived in ED. es 03:44 Triage completed. bb 03:45 Arm band placed on Patient placed in waiting room, Patient notified of wait time. 04:35 Miguel Ángel Marks MD is Attending Physician. [facility] 04:38 Patient has correct armband on for positive identification. Bed in low position. Call belkis light in reach. Side rails up X2. 05:27 CT C Spine In Process Unspecified. EDMS 06:37 No provider procedures requiring assistance completed. Patient did not have IV access belkis during this emergency room visit. Administered Medications: 05:14 Drug: TORadol (ketorolac) 60 mg Route: IM; Site: right ventrogluteal; jm8 06:39 Follow up: Response: No adverse reaction belkis Outcome: 06:29 Discharge ordered by . treva 06:37 Discharged to home ambulatory. jm8 06:37 Condition: good 06:37 Discharge instructions given to patient, Instructed on discharge instructions, follow up and referral plans. medication usage, Demonstrated understanding of instructions, follow-up care, medications, Prescriptions given X 2. 06:38 Patient left the ED. jm8 Signatures: Dispatcher [employer] Ana Doherty Brenda, RN RN bb Holmes, Maurice, MD MD Papo Nava RN RN 8
--- NOTE | 2020-11-11 06:30 | EDPHYS ---
Physician Documentation [facility] Name: Tg Quarles Age: 40 yrs Sex: Female : 1980 Arrival Date: 11/11/2020 Time: 03:05 Bed 20 Private MD: ED Physician Miguel Ángel Marks HPI: 11/11 05:04 This 40 yrs old Female presents to ER via Ambulatory with complaints of Stiff mh7 Neck, Neck Pain, >24Hrs Old. 05:04 The patient or guardian complains of pain, that is acute, spasm, stiffness. The mh7 symptoms are located at the neck. Onset: The symptoms/episode began/occurred 4 day(s) ago. Context: The problem was sustained at home, The neck injury/problem resulted from from unknown cause. Associated signs and symptoms: Pertinent negatives: chills, constipation, fever, headache, bladder incontinence, bowel incontinence, nausea, numbness, tingling, vomiting, weakness. The pain radiates to the right shoulder. Modifying factors: The symptoms are alleviated by nothing. the symptoms are aggravated by movement. Severity of symptoms: At their worst the symptoms were moderate, yesterday, in the emergency department the symptoms are unchanged. 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 - Social history:: Smoking status: Patient reports the use of cigarette tobacco products, denies chronic smoking, but will smoke occasionally. ROS: 05:04 Constitutional: Negative for fever, chills, and weight loss, Eyes: Negative for injury, mh7 pain, redness, and discharge, ENT: Negative for injury, pain, and discharge, Cardiovascular: Negative for chest pain, palpitations, and edema, Respiratory: Negative for shortness of breath, cough, wheezing, and pleuritic chest pain, Abdomen/GI: Negative for abdominal pain, nausea, vomiting, diarrhea, and constipation, Back: Negative for injury and pain, : Negative for injury, bleeding, discharge, and swelling, MS/Extremity: Negative for injury and deformity, Skin: Negative for injury, rash, and discoloration, Neuro: Negative for headache, weakness, numbness, tingling, and seizure, Psych: Negative for depression, anxiety, suicide ideation, homicidal ideation, and hallucinations, Allergy/Immunology: Negative for hives, rash, and allergies, Endocrine: Negative for neck swelling, polydipsia, polyuria, polyphagia, and marked weight changes, Hematologic/Lymphatic: Negative for swollen nodes, abnormal bleeding, and unusual bruising. Exam: 05:04 Constitutional: This is a well developed, well nourished patient who is awake, alert, mh7 and in no acute distress. Head/Face: Normocephalic, atraumatic. Eyes: Pupils equal round and reactive to light, extra-ocular motions intact. Lids and lashes normal. Conjunctiva and sclera are non-icteric and not injected. Cornea within normal limits. Periorbital areas with no swelling, redness, or edema. Chest/axilla: Normal chest wall appearance and motion. Nontender with no deformity. No lesions are appreciated. Cardiovascular: Regular rate and rhythm with a normal S1 and S2. No gallops, murmurs, or rubs. Normal PMI, no JVD. No pulse deficits. Respiratory: Lungs have equal breath sounds bilaterally, clear to auscultation and percussion. No rales, rhonchi or wheezes noted. No increased work of breathing, no retractions or nasal flaring. Abdomen/GI: Soft, non-tender, with normal bowel sounds. No distension or tympany. No guarding or rebound. No evidence of tenderness throughout. Back: No spinal tenderness. No costovertebral tenderness. Full range of motion. Skin: Warm, dry with normal turgor. Normal color with no rashes, no lesions, and no evidence of cellulitis. MS/ Extremity: Pulses equal, no cyanosis. Neurovascular intact. Full, normal range of motion. Neuro: Awake and alert, GCS 15, oriented to person, place, time, and situation. Cranial nerves II-XII grossly intact. Motor strength 5/5 in all extremities. Sensory grossly intact. Cerebellar exam normal. Normal gait. Psych: Awake, alert, with orientation to person, place and time. Behavior, mood, and affect are within normal limits. 05:04 Neck: External neck: tenderness, that is moderate, of the occiput, right mid cervical mh7 area and right trapezius, C-spine: appears grossly normal, Thyroid: appears normal, Trachea: is midline with no obvious abnormalities, ROM/movement: pain, that is moderate, with rotation to the left, limited range of motion, that is moderate, when rotating to the left, Meningeal signs: are not present, nuchal rigidity, is not appreciated, Lymph nodes: no appreciated lymphadenopathy. Vital Signs: 03:42 BP 114 / 62; Pulse 86; Resp 18 S; Temp 98.5(O); Pulse Ox 99% on R/A; Weight 99.34 kg bb (R); Height 6 ft. 2 in. (187.96 cm) (R); Pain 10/10; 06:38 BP 115 / 74; Pulse 84; Resp 16; Pulse Ox 99% on R/A; jm8 03:42 Body Mass Index 28.12 (99.34 kg, 187.96 cm) bb MDM: 05:04 Differential diagnosis: arthritis, Cervical Disc Herniation Cervical Raiculopathy mh7 cervical strain, Osteoarthritis Spondylolisthesis Spondylosis torticollis. Data reviewed: vital signs, nurses notes, radiologic studies, CT scan. Counseling: I had a detailed discussion with the patient and/or guardian regarding: the historical points, exam findings, and any diagnostic results supporting the discharge/admit diagnosis, radiology results, the need for outpatient follow up, to return to the emergency department if symptoms worsen or persist or if there are any questions or concerns that arise at home. Response to treatment: the patient's symptoms have markedly improved after treatment. 06:29 Patient medically screened. [facility] 11/11 04:56 Order name: CT C Spine [facility] Administered Medications: 05:14 Drug: TORadol (ketorolac) 60 mg Route: IM; Site: right ventrogluteal; jm8 06:39 Follow up: Response: No adverse reaction jm8 Disposition: 11/11/20 06:29 Discharged to Home. Impression: Spinal stenosis, cervical region, Spondylolysis, cervical region, Radiculopathy, cervical region. - Condition is Stable. - Discharge Instructions: Cervical Radiculopathy, [id number]. - Prescriptions for ketorolac 10 mg Oral tablet - take 1 tablet by ORAL route every 8 hours As needed not to exceed 40 mg in 24hrs; 15 tablet. Robaxin 500 mg Oral Tablet - take 1 tablet by ORAL route every 6 hours As needed; 20 tablet. - Medication Reconciliation Form, Work release form, Thank You Letter, Antibiotic Education, Prescription Opioid Use form. - Follow up: Private Physician; When: 2 - 3 days; Reason: Worsening of condition, Recheck today's complaints, Continuance of care, Re-evaluation by your physician. - Problem is new. - Symptoms have improved. Signatures: Dispatcher [employer] EDMS Stefanie Sigala RN RN bb Miguel Ángel Marks MD MD 7 Papo Collins RN RN jm8 Corrections: (The following items were deleted from the chart) 06:30 06:29 11/11/2020 06:29 Discharged to Home. Impression: Spinal stenosis, cervical mh7 region. Condition is Stable. Forms are Medication Reconciliation Form, Thank You Letter, Antibiotic Education, Prescription Opioid Use. Follow up: Private Physician; When: 2 - 3 days; Reason: Worsening of condition, Recheck today's complaints, Continuance of care, Re-evaluation by your physician. Problem is new. Symptoms have improved. 7 06:30 06:30 11/11/2020 06:29 Discharged to Home. Impression: Spinal stenosis, cervical mh7 region; Spondylolysis, cervical region. Condition is Stable. Forms are Medication Reconciliation Form, Thank You Letter, Antibiotic Education, Prescription Opioid Use. Follow up: Private Physician; When: 2 - 3 days; Reason: Worsening of condition, Recheck today's complaints, Continuance of care, Re-evaluation by your physician. Problem is new. Symptoms have improved. 7 06:38 06:30 11/11/2020 06:29 Discharged to Home. Impression: Spinal stenosis, cervical jm8 region; Spondylolysis, cervical region; Radiculopathy, cervical region. Condition is Stable. Forms are Medication Reconciliation Form, Thank You Letter, Antibiotic Education, Prescription Opioid Use. Follow up: Private Physician; When: 2 - 3 days; Reason: Worsening of condition, Recheck today's complaints, Continuance of care, Re-evaluation by your physician. Problem is new. Symptoms have improved. mh7
[2020-11-11 06:46] VITALS: BP 114/62; TEMP 98.5; O2SAT 99
--- NOTE | 2020-11-12 12:34 | RAD REPORT ---
EXAM DESCRIPTION: CT - C Spine Wo Con - 11/11/2020 6:18 am COMPARISON: None. CLINICAL HISTORY: Radiculopathy;Pain TECHNIQUE: Axial CT images were obtained through the entire cervical spine without contrast. Sagit mishel and coronal reconstructions are provided. Automated exposure control was utilized on this examina tion as a dose lowering technique. FINDINGS: Vertebrae: Vertebral statures and alignment are normal. No acute fracture, dislocation o r destructive osseous process is present. Spinal canal, foramina, and facet joints: There is spinal canal stenosis is mild at C6-C7 due to disc osteophyte complex. Greatest foraminal st enosis is mild at left left C8. Paraspinous soft-tissues: Normal. Thyroid: Normal. Other Findings: None. IMPRESSION: 1. No acute fracture or subluxation. 2. Cervical spondylosis. Electronically signed by: Albert Cano MD 11/11/2020 6:00 AM CDT Due to temporary technical issues with the PACS/Fluency reporting system, reports are being signed by the in house radiologist without review as a courtesy to ensure prompt reporting. The interpreting r adiologist is fully responsible for the content of the report.
== END 2020-11-11 06:38 | disposition home or self-care (01) ==
LOC: ER 02:59
DX: M54.12 Radiculopathy, cervical region (principal); M43.02 Spondylolysis, cervical region; M48.02 Spinal stenosis, cervical region; F17.210 Nicotine dependence, cigarettes, uncomplicated; K21.9 Gastro-esophageal reflux disease without esophagitis; I10 Essential (primary) hypertension
CPT/HCPCS: 72125; 96372; 99283

== ENCOUNTER 2020-11-12 22:13 | Emergency (ER) | payer OTHER ==
--- OUTSIDE RECORDS SUMMARY | 2020-11-12 22:16 | XMS REPORT | Continuity of Care Document ---
:1980 Author Organization [facility] t Address [address] [place] [address] Care Team Providers Name Role Phone Cadnis Haider MD Attending Clinician DR ARNOLDO Attending [...] 2020-11-08 2020-11-08 Office Meliza Gloria [id number] 11:09:23 12:22:47 Visit , [facility] [id number] M s and [id number] Adult [id number] Primary [facility] 2018-10-15 2018-10-15 Emergency E DARSHANA [facility] [id number] [address] 02:31:00 03:40:00 [facility] 2018-10-01 2018-10-01 Outpatient C DARSHANA GREER RAD [id number] 08:05:00 23:59:00 [facility] Results Test Description Test Time Test Comments Results Result [facility] e Comments CT ABDOMEN AND 2018-10-01 EXAM: CT ABDOMEN AND PELVIS WITH 08:51:45 PELVIS WITH CONTRAST CONTRAST.LOCATION: D4.HISTORY: [id number]: Disorder of [id number]: Benign neoplasm of colon.COMPARISON:None. TECHNIQUE:CT abdomen and [...]
[2020-11-12 23:49] LABS: Urine Blood 3+ (Negative); Urine Glucose Negative (Negative); Urine Protein 1+ (Negative); Urine Specific Gravity >=1.030 (1.005-1.030)
[2020-11-13 00:21] LABS: Urine Specific Gravity/Preg >1.030 (1.005-1.030)
--- NOTE | 2020-11-13 01:02 | ER ---
Nurse's Notes [facility] Name: Tg Quarles Age: 40 yrs Sex: Female : 1980 Arrival Date: 11/12/2020 Time: 22:41 Bed Waiting Private MD: Diagnosis: Fever, unspecified-NO DIAGNOSIS, DISCHARGED FROM [facility] Presentation: 11/12 22:59 Chief complaint: Patient states: burning with urination that started today, states it em is cloudy, denies discharge, reports abdominal pain. Coronavirus screen: Client denies travel out of the [place] in the last 14 days. Ebola Screen: Patient negative for fever greater than or equal to 101.5 degrees Fahrenheit, and additional compatible Ebola Virus Disease symptoms Patient denies exposure to infectious person. Patient denies travel to an Ebola-affected area in the 21 days before illness onset. No symptoms or risks identified at this time. Initial Sepsis Screen: Does the patient meet any 2 criteria? HR > 90 bpm. No. Patient's initial sepsis screen is negative. Does the patient have a suspected source of infection? Yes: Dysuria/Frequency/Urgency/UTI. Risk Assessment: Do you want to hurt yourself or someone else? Patient reports no desire to harm self or others. Onset of symptoms was November 12, 2020. 22:59 Method Of Arrival: Ambulatory em 22:59 Acuity: JULIENNE 4 em Historical: - Allergies: 23:01 Sulfa (Sulfonamide Antibiotics); em 23:01 tramadol; em - PMHx: 23:01 Anemia; GERD; Hypertension; UTI; em - PSHx: 23:01 right shoulder surgery; Cholecystectomy; em - Immunization history:: Adult Immunizations up to date. - Social history:: Smoking status: Patient denies any tobacco usage or history of. Vital Signs: 22:59 Pulse 94; Resp 20; Temp 97.4; Pulse Ox 99% on R/A; Weight 99.34 kg; Height 6 ft. 2 in. em (187.96 cm); Pain 2/10; 23:02 BP 121 / 66; em 22:59 Body Mass Index 28.12 (99.34 kg, 187.96 cm) em ED Course: 22:41 Patient arrived in ED. es 23:01 Triage completed. em 23:01 Arm band placed on. em Administered Medications: No medications were administered Outcome: 11/13 01:01 Discharge ordered by MD. wallace 01:02 Patient left the ED. srSarkis Signatures: Ana Cody Edgar, RN RN Steven Romero RN RN [place]
[2020-11-13 01:18] VITALS: TEMP 97.4; O2SAT 99
[2020-11-13 01:18] LABS: Urine Volume 1 mL
[2020-11-13 01:19] VITALS: BP 121/66
[2020-11-13 01:19] LABS: Urine Bacteria 20-50 /HPF (<20); Urine RBC <5 /HPF (NONE SEEN); Urine Urothelial Cells <5 /HPF (NONE SEEN)
== END 2020-11-13 01:02 | disposition home or self-care (01) ==
LOC: ER 22:13
DX: N39.0 Urinary tract infection, site not specified (principal); I10 Essential (primary) hypertension; Z88.2 Allergy status to sulfonamides; Z88.5 Allergy status to narcotic agent
CPT/HCPCS: 81003; 81015; 81025; 87077; 87086; 87088; 87186; 99281

== ENCOUNTER 2020-12-24 19:04 | Emergency (ER) | payer OTHER ==
--- OUTSIDE RECORDS SUMMARY | 2020-12-24 19:07 | XMS REPORT | Continuity of Care Document ---
:1980 Author Organization [facility] t Address [address] [place] [address] Care Team Providers Name Role Phone Candis Haider MD Attending Clinician Alexandra SWEET Attending Clinician DR ARNOLDO Attending Clinician Unavailable [...] Date/Time Type Type Clinicians Facility Department ID 2020-11-29 2020-11-29 Refill Meliza Faizan [id number] 00:00:00 00:00:00 , [facility] 350.1.13.10 M s and 4.2.7.2.686 Adult [id number] Primary [facility] 2020-11-16 2020-11-16 Refill Meliza Faizan [id number] 00:00:00 00:00:00 , [facility] 350.1.13.10 M s and 4.2.7.2.686 Adult [id number] [facility] 2020-11-152020-11-15 Office Faizan Morris [id number] 11:30:23 12:00:23 Visit [facility] 350.1.13.10 s and [id number] Adult [id number] Primary [facility] 2020-11-13 2020-11-13 Patient eMliza Gloria [id number] 00:00:00 00:00:00 Secure Msg [facility] [id number] M s and [id number] Adult [id number] [facility] 2018-10-15 2018-10-15 Emergency E [place], [facility] [id number] 02:31:00 03:40:00 [facility] 2018-10-01 2018-10-01 Outpatient C JONATHONALECRORY, [facility] RAD [id number] 08:05:00 23:59:00 [facility] Results Test Description Test Time Test Comments Results Result [facility] e Comments CT ABDOMEN AND 2018-10-01 EXAM: CT ABDOMEN AND PELVIS WITH 08:51:45 PELVIS WITH CONTRAST CONTRAST.LOCATION: D4.HISTORY: [id number]: Disorder of [id number]: Benign neoplasm of colon.COMPARISON:None. TECHNIQUE:CT abdomen and [...]
--- NOTE | 2020-12-24 21:33 | ER ---
Nurse's Notes [facility] Name: Tg Quarles Age: 40 yrs Sex: Female : 1980 Arrival Date: 12/24/2020 Time: 19:05 Bed DIS1 Private MD: Diagnosis: Coronavirus infection, unspecified Presentation: 12/24 20:03 Chief complaint: Patient states: she has been exposed to Covid and now is having bb symptoms; cough, runny nose, nasal congestion and headache x 2 days. Coronavirus screen: congestion, cough unrelated to allergies, headache. Ebola Screen: No symptoms or risks identified at this time. Initial Sepsis Screen: Does the patient meet any 2 criteria? No. Patient's initial sepsis screen is negative. Does the patient have a suspected source of infection? No. Patient's initial sepsis screen is negative. Risk Assessment: Do you want to hurt yourself or someone else? Patient reports no desire to harm self or others. Onset of symptoms was December 22, 2020. 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 11/2020 bb Historical: - Allergies: 20:05 Sulfa (Sulfonamide Antibiotics); bb 20:05 tramadol; bb - Home Meds: 20:05 Iron CR Oral [Active]; metoprolol tartrate 25 mg Oral tab 0.5 tab once daily [Active]; bb Omeprazole Oral [Active]; - PMHx: 20:05 Anemia; GERD; Hypertension; UTI; bb - Immunization history:: Adult Immunizations up to date, Client reports receiving the 1st dose of the Covid vaccine. - Social history:: Smoking status: unknown. Screenin:45 Abuse screen: Denies threats or abuse. Nutritional screening: No deficits noted. em Tuberculosis screening: No symptoms or risk factors identified. Fall Risk None identified. Assessment: 21:46 General: Appears in no apparent distress. uncomfortable, ill, well groomed, well em developed, well nourished, Behavior is calm, cooperative, appropriate for age. Pain: Complains of pain in "body aches". Neuro: Level of Consciousness is awake, alert, obeys commands, Oriented to person, place, time, situation, Appropriate for age. Cardiovascular: Capillary refill < 3 seconds Patient's skin is warm and dry. Respiratory: Airway is patent Respiratory effort is even, unlabored, Respiratory pattern is regular, symmetrical, Parent/caregiver reports the patient having cough that is. EENT: Reports nasal congestion. Derm: Skin is intact, is healthy with good turgor, Skin is pink, warm \\T\\ dry. Musculoskeletal: Capillary refill < 3 seconds, Range of motion: intact in all extremities. Vital Signs: 20:03 BP 124 / 70; Pulse 106; Resp 18 S; Temp 98.6(O); Pulse Ox 100% on R/A; Weight 99.79 kg bb (R); Height 6 ft. 2 in. (187.96 cm) (R); 20:03 Body Mass Index 28.25 (99.79 kg, 187.96 cm) bb ED Course: 19:05 Patient arrived in ED. es 20:05 Triage completed. bb 20:05 Arm band placed on Patient placed in waiting room, Patient notified of wait time. Labs bb ordered per protocol. 21:15 Darrian aEson MD is Attending Physician. sina 21:32 James Smith MD is Referral Physician. sina 21:40 Jeremiah Plascencia, RN is Primary Nurse. em 21:45 Patient has correct armband on for positive identification. Adult w/ patient. Pulse ox em on. NIBP on. 21:45 No provider procedures requiring assistance completed. Patient did not have IV access em during this emergency room visit. Administered Medications: 21:41 Drug: Zithromax (azithromycin) 500 mg Route: PO; em 21:48 Follow up: Response: Medication administered at discharge. em 21:41 Drug: predniSONE 40 mg Route: PO; em 21:48 Follow up: Response: Medication administered at discharge. em 21:41 Drug: Pepcid (famotidine) 20 mg Route: PO; em 21:48 Follow up: Response: Medication administered at discharge. em 21:41 Drug: Aspirin Chewable Tablet 81 mg Route: PO; em 21:48 Follow up: Response: Medication administered at discharge. em Outcome: 21:33 Discharge ordered by . sina 21:45 Discharged to home ambulatory. em 21:45 Condition: stable 21:45 Discharge instructions given to patient, Instructed on discharge instructions, follow up and referral plans. medication usage, Demonstrated understanding of instructions, follow-up care, medications, Prescriptions given X 4. 21:49 Patient left the ED. em Signatures: Darrian Eason MD MD cha Salyer, Edna es Munoz, Edgar, RN RN Stefanie Magana RN RN bb
--- NOTE | 2020-12-24 21:34 | EDPHYS ---
Physician Documentation [facility] Name: Tg Quarles Age: 40 yrs Sex: Female : 1980 Arrival Date: 12/24/2020 Time: 19:05 Bed DIS1 Private MD: [facility] Physician Darrian Eason HPI: 12/24 21:22 This 40 yrs old Female presents to ER via Ambulatory with complaints of sina Cough, Congestion, BODY ACHE. 21:22 This 40 yrs old Female presents to ER via Ambulatory with complaints of sina Cough, Congestion, BODY ACHE. 21:22 The patient or guardian reports cough, described as mild, flu symptoms. Onset: The sina symptoms/episode began/occurred 3 day(s) ago. Severity of symptoms: At their worst the symptoms were mild, earlier today. Modifying factors: The symptoms are alleviated by nothing, the symptoms are aggravated by animal dander. Associated signs and symptoms: The patient has no apparent associated signs or symptoms. The patient has not experienced similar symptoms in the past. 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 - Social history:: Smoking status: unknown. ROS: 21:25 Constitutional: Negative for fever, chills, and weight loss, Eyes: Negative for injury, sina pain, redness, and discharge, ENT: Negative for injury, pain, and discharge, Neck: Negative for injury, pain, and swelling, Cardiovascular: Negative for chest pain, palpitations, and edema, Abdomen/GI: Negative for abdominal pain, nausea, vomiting, diarrhea, and constipation, Back: Negative for injury and pain, : Negative for injury, bleeding, discharge, and swelling, MS/Extremity: Negative for injury and deformity, Skin: Negative for injury, rash, and discoloration, Neuro: Negative for headache, weakness, numbness, tingling, and seizure. 21:25 Respiratory: Positive for cough, with no reported sputum. Exam: 21:25 Constitutional: This is a well developed, well nourished patient who is awake, alert, sina and in no acute distress. Head/Face: Normocephalic, atraumatic. Eyes: Pupils equal round and reactive to light, extra-ocular motions intact. Lids and lashes normal. Conjunctiva and sclera are non-icteric and not injected. Cornea within normal limits. Periorbital areas with no swelling, redness, or edema. ENT: Nares patent. No nasal discharge, no septal abnormalities noted. Tympanic membranes are normal and external auditory canals are clear. Oropharynx with no redness, swelling, or masses, exudates, or evidence of obstruction, uvula midline. Mucous membranes moist. Neck: Trachea midline, no thyromegaly or masses palpated, and no cervical lymphadenopathy. Supple, full range of motion without nuchal rigidity, or vertebral point tenderness. No Meningismus. Chest/axilla: Normal chest wall appearance and motion. Nontender with no deformity. No lesions are appreciated. Cardiovascular: Regular rate and rhythm with a normal S1 and S2. No gallops, murmurs, or rubs. Normal PMI, no JVD. No pulse deficits. Respiratory: Lungs have equal breath sounds bilaterally, clear to auscultation and percussion. No rales, rhonchi or wheezes noted. No increased work of breathing, no retractions or nasal flaring. Back: No spinal tenderness. No costovertebral tenderness. Full range of motion. Pelvic Exam: Normal external genitalia. Speculum exam with closed cervical os, no discharge or bleeding noted. Bimanual exam with normal adnexa, no adnexal or cervical motion tenderness. Normal uterus. Skin: Warm, dry with normal turgor. Normal color with no rashes, no lesions, and no evidence of cellulitis. MS/ Extremity: Pulses equal, no cyanosis. Neurovascular intact. Full, normal range of motion. Neuro: Awake and alert, GCS 15, oriented to person, place, time, and situation. Cranial nerves II-XII grossly intact. Motor strength 5/5 in all extremities. Sensory grossly intact. Cerebellar exam normal. Normal gait. Psych: Awake, alert, with orientation to person, place and time. Behavior, mood, and affect are within normal limits. 21:25 ENT: Nose: nasal drainage, that is minimal, that is clear, Posterior pharynx: Airway: normal, no evidence of obstruction, Tonsils: are normal in appearance, Uvula: normal, midline, swelling, is not appreciated, erythema, is not appreciated. 21:25 Abdomen/GI: Vital Signs: 20:03 BP 124 / 70; Pulse 106; Resp 18 S; Temp 98.6(O); Pulse Ox 100% on R/A; Weight 99.79 kg bb (R); Height 6 ft. 2 in. (187.96 cm) (R); 20:03 Body Mass Index 28.25 (99.79 kg, 187.96 cm) bb MDM: 21:15 Patient medically screened. sina 21:25 Differential Diagnosis: Bronchitis Influenza Upper Respiratory Infection Sinusitis sina Pharyngitis Otitis Media. Data reviewed: vital signs, nurses notes. 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 Test interpretation: by ED physician or midlevel provider:. Counseling: I had a detailed discussion with the patient and/or guardian regarding: the historical points, exam findings, and any diagnostic results supporting the discharge/admit diagnosis, the need for outpatient follow up, for definitive care, a family practitioner. 12/24 20:40 Order name: Influenza Screen (A EDSD / 20:40 Order name: Group A Streptococcus Rapid Sc EDSD / 21:18 Order name: SARS-COV-2 RT PCR EDSD 12/24 21:26 Order name: Throat Culture EDSD Administered Medications: 21:41 Drug: Zithromax (azithromycin) 500 mg Route: PO; em 21:48 Follow up: Response: Medication administered at discharge. em 21:41 Drug: predniSONE 40 mg Route: PO; em 21:48 Follow up: Response: Medication administered at discharge. em 21:41 Drug: Pepcid (famotidine) 20 mg Route: PO; em 21:48 Follow up: Response: Medication administered at discharge. em 21:41 Drug: Aspirin Chewable Tablet 81 mg Route: PO; em 21:48 Follow up: Response: Medication administered at discharge. em Disposition Summary: 12/24/20 21:33 Discharge Ordered Location: Home sina Problem: new sina Symptoms: have improved sina Condition: Stable sina Diagnosis - Coronavirus infection, unspecified sina Followup: [facility] - With: Private Physician - When: 2 - 3 days - Reason: Recheck today's complaints, Continuance of care, Re-evaluation by your physician Followup: [facility] - With: James Smith MD - When: 2 - 3 days - Reason: Recheck today's complaints, Re-evaluation by your physician Discharge Instructions: - Discharge Summary Sheet [facility] - Upper Respiratory Infection, Adult [facility] - Upper Respiratory Infection, Adult, [id number] [facility] - Viral Respiratory Infection, [id number] [facility] - Aspirin and Your Heart [facility] - COVID-19 [facility] Forms: - Medication Reconciliation Form [facility] - Thank You Letter [facility] - Antibiotic Education [facility] - Prescription Opioid Use [facility] Prescriptions: - ivermectin 3 mg Oral tablet - take 4 tablet by ORAL route once daily; 20 tablet; Refills: 0, Product [facility] Selection Permitted - Pepcid 20 mg Oral Tablet - take 1 tablet by ORAL route every 12 hours for 15 days; 30 tablet; Refills: 0, [facility] Product Selection Permitted - Medrol (Kelvin) 4 mg Oral Tablets, Dose Pack - take 1 tablet by ORAL route as directed - follow package instructions; 1 [facility] packet; Refills: 0, Product Selection Permitted - Zithromax 500 mg Oral Tablet - take 1 tablet by ORAL route once daily for 4 days; 4 tablet; Refills: 0, [facility] Product Selection Permitted Signatures: Dispatcher [employer] Darrian Coulter MD MD cha Munoz, Edgar, RN RN Stefanie Magana RN RN bb
[2020-12-24] MEDS ORDERED: ASPIRIN 81 MG CHEWABLE TABLET ONE (21:59)
[2020-12-24] MEDS ORDERED: predniSONE 20 MG TAB ONE (21:59)
[2020-12-24] MEDS ORDERED: AZITHROMYCIN 250 MG TAB ONE (21:59)
[2020-12-24] MEDS ORDERED: FAMOTIDINE 20 MG TAB ONE (22:00)
[2020-12-24 22:03] VITALS: BP 124/70; TEMP 98.6; O2SAT 100
== END 2020-12-24 21:49 | disposition home or self-care (01) ==
LOC: ER 19:04
DX: U07.1 COVID-19 (principal); I10 Essential (primary) hypertension; Z88.2 Allergy status to sulfonamides; Z88.5 Allergy status to narcotic agent
CPT/HCPCS: 87070; 87081; 87804 ×2; 99284; U0003; J7512

== ENCOUNTER 2021-04-14 19:51 | Emergency (ER) | payer OTHER ==
--- OUTSIDE RECORDS SUMMARY | 2021-04-14 20:10 | XMS REPORT | Continuity of Care Document ---
:[address] [facility] t Address [address] [place] [address] Care Team Providers Name Role Phone Cornelia BELTRAN Primary Care Physician Unavailable Candis HAIDER Attending Clinician Unavailable Candis Haider MD Attending Clinician Alexandra SWEET Attending Clinician ALEXANDRA Attending Clinician Unavailable Rebeca Collins PA-C Attending Clinician Candis SALGADO Attending Clinician Unavailable Vy REARDON S Attending Clinician Sarmad Ayala DO Attending Clinician REBECA COLLINS Attending Clinician Unavailable Nurse, Cbc Pedi Attending Clinician Unavailable Kp ZAMORANO Attending Clinician Nurse, Women's Health Attending Clinician Unavailable Darrian REARDON, Oleg Attending Clinician Carlos Sheth MD Attending Clinician Vonda GUM SPRAYER, G Attending Clinician Doctor Unassigned, Name Attending Clinician Unavailable KP Attending Clinician Unavailable Carlos SHETH Attending Clinician Unavailable Maximo SWEET, B Attending Clinician Unknown Attending Clinician Unavailable Quoc PINEDO, S Attending Clinician Unavailable UNKNOWN Attending Clinician Unavailable Steven SHELL, A Attending Clinician Unavailable Fransico REARDON, P Attending Clinician Enrique Torres MD Attending Clinician DR ARNOLDO Attending Clinician Unavailable PERCY Attending Clinician Unavailable DR ARNOLDO Admitting Clinician Unavailable PERCY Admitting Clinician Unavailable Payers Payer Name Policy Type Policy Number Effective Date Expiration Date [place] [employer] [employer] [facility] [place] [facility] [id number] 2017 00:00:00 Problems Condition Condition Condition Status Onset Resolution Last Treating Co mments Source Name Details Category Date Date Treatment Clinician Date History of History of Disease Active U nivers trichomona trichomona 8-05 it y of l l 00:00: [place] vaginitis vaginitis 00 [facility] Trichomona Trichomona Disease Active U nivers l l 7-17 ity of vulvovagin vul[place]ovagin 00:[place] it[place] itis 00 [facility] BV BV Disease Active Univers (bacterial (bacterial 7-17 it y of vaginosis) vaginosis[place] [facility] Obesity Obesity Disease Active Univers (BMI (BMI 7-08 ity of 30-39.9) 30-39.9) 00:00: [address] Skin yeast Skin yeast Disease Active U nivers infection infection 7-18 ity of 00:00: [address] Screen for Screen for Disease Active U nivers STD STD 7-18 it[place] of (sexually (sexually [place] transmit[place] transmitte 00 Me dical d disease) d disease) Br anch Depo Depo Disease Active Univers contracept contracept 7-18 it y of ion ion 00:00: [address] Pain Pain Disease Active Univers pelvic pelvic 2-15 ity of 00:00: [address] Surveillan Surveillan Disease Active U nivers ce of ce of 2-15 [place]y of previously [place] prescribed prescribed 00 Me dical contracept contracept Br anch sosa method sosa method Irregular Irregular Disease Active Uni vers menstrual menstrual 2-15 ity of cycle cycle 00:00: [address] Well woman Well woman Disease Active U nivers exam exam 2-15 ity of without without 00:00: [place] gynecologi gynecologi 00 Me dical cornelius exam cornelius exam Branch Need for Need for Disease Active Unive rs prophylact prophylact 2-15 it y of ic ic 00:00: [place] vaccinatio vaccinatio 00 Me dical n with n with Branch combined combined diphtheria diphtheria -tetanus-p -tetanus-p ertussis ertussis (DTP) (DTP) vaccine vaccine BMI BMI Disease Active Univers 34.0-34.9, 34.0-34.9, 2-15 it y of adult adult 00:00: [place] 00 Medical Branch Allergies, Adverse Reactions, Alerts Allergy Allergy Status Severity Reaction(s) Onset Inactive Treating Comm ents Source Name Type Date Date Clinician TRAMADOL DRUG Active N/V Univers INGREDI 2-17 ity of 00:00: [place] 00 Medical Branch Tramadol Propensi Active Nausea Univer s ty to and/or 2-17 ity of adverse Vomiting 00:00: [place] reaction 00 Medical s Branch SULFA Drug Active Hives Univers (SULFONA Class 6-13 ity of MIDE 00:00: [place] ANTIBIOT 00 Medical ICS) Branch Sulfa Propensi Active Hives Univers (Sulfona ty to 6-13 ity of mide adverse 00:00: [place] Antibiot reaction 00 Medica l ics) s Branch Social History Social Habit Start Date Stop Date Quantity Comments Source Exposure to Not sure [place] of SARS-CoV-2 [place] [facility] (event) Branch History of Cigarette Smoker Universi ty of tobacco use [facility] Branch Tobacco use and 2020-11-08 2020-11-08 Never used Universit y of exposure 00:00:00 00:00:[address] [facility] Branch Alcohol intake 2020-11-08 2020-11-08 Current drinker Unive rsity of 00:00:00 00:00:00 of alcohol [place] [facility] (finding) Branch History [facility] 2019-12-21 2019-12-21 2 University o f Alcohol Frequency 00:00:00 00:00:00 [place] M edical Branch History [facility] 2019-12-21 2019-12-21 99 University o f Alcohol Std 00:00:00 00:00:00 [place] [facility] Drinks Branch History [facility] 2019-12-21 2019-12-21 99 University o f Alcohol Binge 00:00:00 00:00:00 [place] Medic al Branch Sex [birth year] Universit y of 00:00:00 00:00:00 [facility] Smoking Status Start Date Stop Date Source Current some day smoker 2020-11-08 00:00:00 [facility] Medications Ordered Filled Start Stop Current Ordering Indication Dosage Frequency Signature Comments Components Source Medication Medication Date Date Medication? Clinician (SIG) Name Name METOPROLOL Yes [id number] TAKE 1/2 Univers TARTRATE 25 7-05 TABLET BY ity of mg tablet 00:00: MOUTH [place] 00 EVERY DAY Medical Branch METOPROLOL Yes [id number] TAKE 1/2 Univers TARTRATE 25 7-05 TABLET BY ity of mg tablet 00:00: MOUTH [place] 00 EVERY DAY Medical Branch tinidazole 2020- No [id number] 2000mg Take 4 Univers 500 mg -11-17 tablets by ity of tablet 00:00: 04:59 mouth [place] 00 :00 daily with Medical breakfast [place] for 1 day. tinidazole 2020- No [id number] 2000mg Take 4 Univers 500 mg -11-17 tablets by ity of tablet 00:00: 04:59 mouth [place] 00 :00 daily with Medical breakfast [place] for 1 day. tinidazole 2020- No [id number] 1000mg Take 2 Univers 500 mg -11-15 tablets by ity of tablet 00:00: 00:00 mouth [place] 00 :00 daily with Medical breakfast Branch for 5 days. tinidazole 2020- No [id number] 1000mg Take 2 Univers 500 mg 11-15 tablets by ity of tablet 00:00: 00:00 mouth [place] 00 :00 daily with Medical breakfast [place] for 5 days. medroxyPROG 2020- No [id number] 150mg Univers ESTERone 11-08- ity of (DEPO-PROVE 17:45: 17:03 [facility]) syringe 00 :00 Medical 150 mg Branch medroxyPROG 2020- No [id number] 150mg 150 mg, Univers ESTERone 11-08-24 Intramuscu ity of (DEPO-PROVE 17:45: 17:03 lar, ONCE, [facility]) syringe 00 :00 1 dose, Medic al 150 mg [place] Branch 11/08/20 at 1245, Routine medroxyPROG 2020- No [id number] 150mg Univers ESTERone 11-08 ity of (DEPO-PROVE 17:45: 17:03 [place] [facility]) syringe 00 :00 Medical 150 mg Branch medroxyPROG 2020- No [id number] 150mg 150 mg, Univers ESTERone 11-08 Intramuscu ity of (DEPO-PROVE 17:45: 17:03 lar, ONCE, [place] RA) syringe 00 :00 1 dose, Medic al 150 mg [place] Branch 11/08/20 at 1245, Routine tinidazole 2020- No [id number] 2000mg Take 4 Univers 500 mg 6-10 -18 tablets by ity of tablet 00:00: 04:59 mouth [place] 00 :00 daily with Medical breakfast Branch for 7 days. tinidazole 2020- No [id number] 2000mg Take 4 Univers 500 mg 6-10 -18 tablets by ity of tablet 00:00: 04:59 mouth [place] 00 :00 daily with Medical breakfast Branch for 7 days. HYDROcodone 2020- No 1{tbl} 1 tablet, Univers -acetaminop 08-07 03-23 Oral, ity of hen (NORCO) 04:00: 02:57 [place]CE, 1 [place] 10-325 mg 00 :00 dose, Mon Medic al tablet 1 08/06/20 at [facility] h tablet 2300, Routine Nitrofurant Yes [id number] 100mg Take 1 Univers oin&Nit. 3-22 capsule by ity o f Macrocryst 00:00: mouth 2 [place] (MACROBID) 00 (two) Medical 100 mg times Branch capsule daily. naproxen Yes [id number] 550mg Take 1 U nivers sodium 550 3-22 tablet by ity of mg tablet 00:00: mouth 2 [place] 00 (two) Medical times Branch daily with meals. metaxalone Yes [id number] 800mg Take 1 Univers (SKELAXIN) 3-22 tablet by ity of 800 mg 00:00: mouth 3 [place] tablet 00 (three) Medical times Branch daily. Nitrofurant 2021-0 Yes [id number] 100mg Take 1 Univers oin&Nit. 3-22 capsule by ity o f Macrocryst 00:00: mouth 2 [place] (MACROBID) 00 (two) Medical 100 mg times Branch capsule daily. naproxen 2020-0 Yes [id number] 550mg Take 1 U nivers sodium 550 3-22 tablet by ity of mg tablet 00:00: mouth 2 [place] 00 (two) Medical times Branch daily with meals. metaxalone 2020-0 Yes [id number] 800mg Take 1 Univers (SKELAXIN) 3-22 tablet by ity of 800 mg 00:00: mouth 3 [place] tablet 00 (three) Medical times Branch daily. Nitrofurant 2020-0 Yes [id number] 100mg Take 1 Univers oin&Nit. 3-22 capsule by ity o f Macrocryst 00:00: mouth 2 [place] (MACROBID) 00 (two) Medical 100 mg times Branch capsule daily. naproxen 2020-0 Yes [id number] 550mg Take 1 U nivers sodium 550 3-22 tablet by ity of mg tablet 00:00: mouth 2 [place] 00 (two) Medical times Branch daily with meals. metaxalone 2020-0 Yes [id number] 800mg Take 1 Univers (SKELAXIN) 3-22 tablet by ity of 800 mg 00:00: mouth 3 [place] tablet 00 (three) Medical times Branch daily. Nitrofurant 2020-0 Yes [id number] 100mg Take 1 Univers oin&Nit. 3-22 capsule by ity o f Macrocryst 00:00: mouth 2 [place] (MACROBID) 00 (two) Medical 100 mg times Branch capsule daily. naproxen 2020-0 Yes [id number] 550mg Take 1 U nivers sodium 550 3-22 tablet by ity of mg tablet 00:00: mouth 2 [place] 00 (two) Medical times Branch daily with meals. metaxalone 2020-0 Yes [id number] 800mg Take 1 Univers (SKELAXIN) 3-22 tablet by ity of 800 mg 00:00: mouth 3 [place] tablet 00 (three) Medical times Branch daily. Nitrofurant 2020-0 Yes [id number] 100mg Take 1 Univers oin&Nit. 3-22 capsule by ity o f Macrocryst 00:00: mouth 2 [place] (MACROBID) 00 (two) Medical 100 mg times Branch capsule daily. naproxen 2020-0 Yes [id number] 550mg Take 1 U nivers sodium 550 3-22 tablet by ity of mg tablet 00:00: mouth 2 [place] 00 (two) Medical times Branch daily with meals. metaxalone 2020-0 Yes [id number] 800mg Take 1 Univers (SKELAXIN) 3-22 tablet by ity of 800 mg 00:00: mouth 3 [place] tablet 00 (three) Medical times Branch daily. Nitrofurant 2020-0 Yes [id number] 100mg Take 1 Univers oin&Nit. 3-22 capsule by ity o f Macrocryst 00:00: mouth 2 [place] (MACROBID) 00 (two) Medical 100 mg times Branch capsule daily. naproxen 2020-0 Yes [id number] 550mg Take 1 U nivers sodium 550 3-22 tablet by ity of mg tablet 00:00: mouth 2 [place] 00 (two) Medical times Branch daily with meals. metaxalone 2020-0 Yes [id number] 800mg Take 1 Univers (SKELAXIN) 3-22 tablet by ity of 800 mg 00:00: mouth 3 [place] tablet 00 (three) Medical times Branch daily. Nitrofurant 2020-0 Yes [id number] 100mg Take 1 Univers oin&Nit. 3-22 capsule by ity o f Macrocryst 00:00: mouth 2 [place] (MACROBID) 00 (two) Medical 100 mg times Branch capsule daily. naproxen 2020-0 Yes [id number] 550mg Take 1 U nivers sodium 550 3-22 tablet by ity of mg tablet 00:00: mouth 2 [place] 00 (two) Medical times Branch daily with meals. metaxalone 2020-0 Yes [id number] 800mg Take 1 Univers (SKELAXIN) 3-22 tablet by ity of 800 mg 00:00: mouth 3 [place] tablet 00 (three) Medical times Branch daily. Nitrofurant 2020-0 Yes [id number] 100mg Take 1 Univers oin&Nit. 3-22 capsule by ity o f Macrocryst 00:00: mouth 2 [place] (MACROBID) 00 (two) Medical 100 mg times Branch capsule daily. naproxen 2020-0 Yes [id number] 550mg Take 1 U nivers sodium 550 3-22 tablet by ity of mg tablet 00:00: mouth 2 [place] 00 (two) Medical times Branch daily with meals. metaxalone 2020-0 Yes [id number] 800mg Take 1 Univers (SKELAXIN) 3-22 tablet by ity of 800 mg 00:00: mouth 3 [place] tablet 00 (three) Medical times Branch daily. Nitrofurant 2020-0 Yes [id number] 100mg Take 1 Univers oin&Nit. 3-22 capsule by ity o f Macrocryst 00:00: mouth 2 [place] (MACROBID) 00 (two) Medical 100 mg times Branch capsule daily. naproxen 2020-0 Yes [id number] 550mg Take 1 U nivers sodium 550 3-22 tablet by ity of mg tablet 00:00: mouth 2 00 (two) Medical times Branch daily with meals. metaxalone 2020-0 Yes [id number] 800mg Take 1 Univers (SKELAXIN) 3-22 tablet by ity of 800 mg 00:00: mouth 3 [place] tablet 00 (three) Medical times Branch daily. Nitrofurant 2020-0 Yes [id number] 100mg Take 1 Univers oin&Nit. 3-22 capsule by ity o f Macrocryst 00:00: mouth 2 [place] (MACROBID) 00 (two) Medical 100 mg times Branch capsule daily. naproxen 2020-0 Yes [id number] 550mg Take 1 U nivers sodium 550 3-22 tablet by ity of mg tablet 00:00: mouth 2 00 (two) Medical times Branch daily with meals. metaxalone 2020-0 Yes [id number] 800mg Take 1 Univers (SKELAXIN) 3-22 tablet by ity of 800 mg 00:00: mouth 3 [place] tablet 00 (three) Medical times Branch daily. Nitrofurant 2020-0 Yes [id number] 100mg Take 1 Univers oin&Nit. 3-22 capsule by ity o f Macrocryst 00:00: mouth 2 [place] (MACROBID) 00 (two) Medical 100 mg times Branch capsule daily. naproxen 2020-0 Yes [id number] 550mg Take 1 U nivers sodium 550 3-22 tablet by ity of mg tablet 00:00: mouth 2 [place] 00 (two) Medical times Branch daily with meals. metaxalone 2020-0 Yes [id number] 800mg Take 1 Univers (SKELAXIN) 3-22 tablet by ity of 800 mg 00:00: mouth 3 [place] tablet 00 (three) Medical times Branch daily. Nitrofurant 2020-0 Yes [id number] 100mg Take 1 Univers oin&Nit. 3-22 capsule by ity o f Macrocryst 00:00: mouth 2 [place] (MACROBID) 00 (two) Medical 100 mg times Branch capsule daily. naproxen 2020-0 Yes [id number] 550mg Take 1 U nivers sodium 550 3-22 tablet by ity of mg tablet 00:00: mouth 2 [place] 00 (two) Medical times Branch daily with meals. metaxalone 2020-0 Yes [id number] 800mg Take 1 Univers (SKELAXIN) 3-22 tablet by ity of 800 mg 00:00: mouth 3 [place] tablet 00 (three) Medical times Branch daily. Nitrofurant 2020-0 Yes [id number] 100mg Take 1 Univers oin&Nit. 3-22 capsule by ity o f Macrocryst 00:00: mouth 2 [place] (MACROBID) 00 (two) Medical 100 mg times Branch capsule daily. naproxen 2020-0 Yes [id number] 550mg Take 1 U nivers sodium 550 3-22 tablet by ity of mg tablet 00:00: mouth 2 [place] 00 (two) Medical times Branch daily with meals. metaxalone 2020-0 Yes [id number] 800mg Take 1 Univers (SKELAXIN) 3-22 tablet by ity of 800 mg 00:00: mouth 3 [place] tablet 00 (three) Medical times Branch daily. ferrous 2020-0 Yes [id number] 324mg Take 1 Un bruce sulfate 324 1-26 tablet by ity of mg (65 mg 00:00: mouth 2 [place] iron) EC 00 (two) Medical tablet times Branch daily with meals. ferrous 2020-0 Yes [id number] 324mg Take 1 Un bruce sulfate 324 1-26 tablet by ity of mg (65 mg 00:00: mouth 2 [place] iron) EC 00 (two) Medical tablet times Branch daily with meals. ferrous 2020-0 Yes [id number] 324mg Take 1 Un bruce sulfate 324 1-26 tablet by ity of mg (65 mg 00:00: mouth 2 [place] iron) EC 00 (two) Medical tablet times Branch daily with meals. ferrous 2020-0 Yes [id number] 324mg Take 1 Un bruce sulfate 324 1-26 tablet by ity of mg (65 mg 00:00: mouth 2 [place] iron) EC 00 (two) Medical tablet times Branch daily with meals. ferrous 2020-0 Yes [id number] 324mg Take 1 Un bruce sulfate 324 1-26 tablet by ity of mg (65 mg 00:00: mouth 2 [place] iron) EC 00 (two) Medical tablet times Branch daily with meals. ferrous 2020-0 Yes [id number] 324mg Take 1 Un bruce sulfate 324 1-26 tablet by ity of mg (65 mg 00:00: mouth 2 [place] iron) EC 00 (two) Medical tablet times Branch daily with meals. ferrous 2020-0 Yes [id number] 324mg Take 1 Un bruce sulfate 324 1-26 tablet by ity of mg (65 mg 00:00: mouth 2 [place] iron) EC 00 (two) Medical tablet times Branch daily with meals. ferrous 2020-0 Yes [id number] 324mg Take 1 Un bruce sulfate 324 1-26 tablet by ity of mg (65 mg 00:00: mouth 2 [place] iron) EC 00 (two) Medical tablet times Branch daily with meals. ferrous 0 Yes [id number] 324mg Take 1 Un bruce sulfate 324 1-26 tablet by ity of mg (65 mg 00:00: mouth 2 [place] iron) EC 00 (two) Medical tablet times Branch daily with meals. ferrous 2020-0 Yes [id number] 324mg Take 1 Un bruce sulfate 324 1-26 tablet by ity of mg (65 mg 00:00: mouth 2 [place] iron) EC 00 (two) Medical tablet times Branch daily with meals. ferrous 2020-0 Yes [id number] 324mg Take 1 Un bruce sulfate 324 1-26 tablet by ity of mg (65 mg 00:00: mouth 2 [place] iron) EC 00 (two) Medical tablet times Branch daily with meals. ferrous 2020-0 Yes [id number] 324mg Take 1 Un bruce sulfate 324 1-26 tablet by ity of mg (65 mg 00:00: mouth 2 [place] iron) EC 00 (two) Medical tablet times Branch daily with meals. ferrous Yes [id number] 324mg Take 1 Un bruce sulfate 324 1-26 tablet by ity of mg (65 mg 00:00: mouth 2 [place] iron) EC 00 (two) Medical tablet times Branch daily with meals. ferrous Yes [id number] 324mg Take 1 Un bruce sulfate 324 1-26 tablet by ity of mg (65 mg 00:00: mouth 2 [place] iron) EC 00 (two) Medical tablet times Branch daily with meals. ferrous Yes [id number] 324mg Take 1 Un bruce sulfate 324 1-26 tablet by ity of mg (65 mg 00:00: mouth 2 [place] iron) EC 00 (two) Medical tablet times Branch daily with meals. ferrous Yes [id number] 324mg Take 1 Un bruce sulfate 324 1-26 tablet by ity of mg (65 mg 00:00: mouth 2 [place] iron) EC 00 (two) Medical tablet times Branch daily with meals. metroNIDAZO 2020- No [id number] 500mg Take 1 Univers LE 500 mg 06-05 tablet by ity of tablet 00:00: 05:59 mouth 2 [place] 00 :00 (two) Medical times Branch daily for 7 days. metroNIDAZO 2020- No [id number] 500mg Take 1 Univers LE 500 mg 06-05 tablet by ity of tablet 00:00: 05:59 mouth 2 [place] 00 :00 (two) Medical times Branch daily for 7 days. metroNIDAZO 2020- No [id number] 500mg Take 1 Univers LE 500 mg 06-05 tablet by ity of tablet 00:00: 05:59 mouth 2 [place] 00 :00 (two) Medical times Branch daily for 7 days. metroNIDAZO 2020- No [id number] 500mg Take 1 Univers LE 500 mg 06-05 tablet by ity of tablet 00:00: 05:59 mouth 2 [place] 00 :00 (two) Medical times Branch daily for 7 days. metroNIDAZO 2020- No [id number] 500mg Take 1 Univers LE 500 mg 06-05 tablet by ity of tablet 00:00: 05:59 mouth 2 [place] 00 :00 (two) Medical times Branch daily for 7 days. metoprolol Yes [id number] 12.5mg Take 0.5 Univers tartrate 25 1-13 tablets by it y of mg tablet 00:00: mouth [place] 00 daily. Medical Branch metoprolol Yes [id number] 12.5mg Take 0.5 Univers tartrate 25 1-13 tablets by it y of mg tablet 00:00: mouth [place] 00 daily. Medical Branch metoprolol Yes [id number] 12.5mg Take 0.5 Univers tartrate 25 1-13 tablets by it y of mg tablet 00:00: mouth [place] 00 daily. Medical Branch metoprolol Yes [id number] 12.5mg Take 0.5 Univers tartrate 25 1-13 tablets by it y of mg tablet 00:00: mouth [place] 00 daily. Medical Branch metoprolol Yes [id number] 12.5mg Take 0.5 Univers tartrate 25 1-13 tablets by it y of mg tablet 00:00: mouth [place] 00 daily. Medical Branch metoprolol Yes [id number] 12.5mg Take 0.5 Univers tartrate 25 1-13 tablets by it y of mg tablet 00:00: mouth [place] 00 daily. Medical Branch metoprolol Yes [id number] 12.5mg Take 0.5 Univers tartrate 25 1-13 tablets by it y of mg tablet 00:00: mouth [place] 00 daily. Medical Branch metoprolol Yes [id number] 12.5mg Take 0.5 Univers tartrate 25 1-13 tablets by it y of mg tablet 00:00: mouth [place] 00 daily. Medical Branch metoprolol Yes [id number] 12.5mg Take 0.5 Univers tartrate 25 1-13 tablets by it y of mg tablet 00:00: mouth [place] 00 daily. Medical Branch metoprolol Yes [id number] 12.5mg Take 0.5 Univers tartrate 25 1-13 tablets by it y of mg tablet 00:00: mouth [place] 00 daily. Medical Branch metoprolol Yes [id number] 12.5mg Take 0.5 Univers tartrate 25 1-13 tablets by it y of mg tablet 00:00: mouth [place] 00 daily. Medical Branch metoprolol 2021-0 Yes [id number] 12.5mg Take 0.5 Univers tartrate 25 1-13 tablets by it y of mg tablet 00:00: mouth [place] 00 daily. Medical Branch metoprolol Yes [id number] 12.5mg Take 0.5 Univers tartrate 25 1-13 tablets by it y of mg tablet 00:00: mouth [place] 00 daily. Medical Branch metoprolol Yes [id number] 12.5mg Take 0.5 Univers tartrate 25 1-13 tablets by it y of mg tablet 00:00: mouth [place] 00 daily. Medical Branch metoprolol Yes [id number] 12.5mg Take 0.5 Univers tartrate 25 1-13 tablets by it y of mg tablet 00:00: mouth [place] 00 daily. Medical Branch metoprolol Yes [id number] 12.5mg Take 0.5 Univers tartrate 25 1-13 tablets by it y of mg tablet 00:00: mouth [place] 00 daily. Medical Branch metoprolol Yes [id number] 12.5mg Take 0.5 Univers tartrate 25 1-13 tablets by it y of mg tablet 00:00: mouth [place] 00 daily. Medical Branch metoprolol Yes [id number] 12.5mg Take 0.5 Univers tartrate 25 1-13 tablets by it y of mg tablet 00:00: mouth [place] 00 daily. Medical Branch metoprolol Yes [id number] 12.5mg Take 0.5 Univers tartrate 25 1-13 tablets by it y of mg tablet 00:00: mouth [place] 00 daily. Medical Branch metoprolol 2020- No [id number] 12.5mg Take 0.5 Univers tartrate 25 1-13 07-05 tablets by i ty of mg tablet 00:00: 00:00 mouth [place] 00 :00 daily. [facility] Branch metoprolol 2020- No [id number] 12.5mg Take 0.5 Univers tartrate 25 1-13 07-05 tablets by i ty of mg tablet 00:00: 00:00 mouth [place] 00 :00 daily. [facility] Branch tinidazole 2019-05 Yes Take 4 Unive rs 500 mg 1-13 tablets ity of tablet 00:00: now as 1 [place] 00 dose Medical Branch tinidazole 2019-05 Yes Take 4 Unive rs 500 mg 1-13 tablets ity of tablet 00:00: now as 1 00 dose Medical Branch tinidazole 2020-1 Yes Take 4 Unive rs 500 mg 1-13 tablets ity of tablet 00:00: now as 1 dose Medical Branch tinidazole 2020- Yes Take 4 Unive rs 500 mg 1-13 tablets ity of tablet 00:00: now as 1 dose Medical Branch tinidazole 2020- Yes Take 4 Unive rs 500 mg 1-13 tablets ity of tablet 00:00: now as 1 dose Medical Branch tinidazole 2020- Yes Take 4 Unive rs 500 mg 1-13 tablets ity of tablet 00:00: now as 1 dose Medical Branch tinidazole 2020- Yes Take 4 Unive rs 500 mg 1-13 tablets ity of tablet 00:00: now as 1 dose Medical Branch tinidazole 2020- Yes Take 4 Unive rs 500 mg 1-13 tablets ity of tablet 00:00: now as 1 dose Medical Branch tinidazole 2020- Yes Take 4 Unive rs 500 mg 1-13 tablets ity of tablet 00:00: now as 1 dose Medical Branch tinidazole 2020- Yes Take 4 Unive rs 500 mg 1-13 tablets ity of tablet 00:00: now as 1 dose Medical Branch tinidazole 2019- Yes Take 4 Unive rs 500 mg 1-13 tablets ity of tablet 00:00: now as 1 dose Medical Branch tinidazole 2019- Yes Take 4 Unive rs 500 mg 1-13 tablets ity of tablet 00:00: now as 1 dose Medical Branch tinidazole 2019-2020- No Take 4 Univ ers 500 mg 1-13 -19 tablets ity of tablet 00:00: 00:00 now as 1 [place] 00 :00 dose Medical Branch clindamycin 2020-0 2020- No 100mg Insert 1 Univers 100 mg 12-26-15 Suppositor ity of vaginal 00:00: 04:59 y into [place] suppository 00 :00 vagina at [facility] bedtime Branch for 3 days. tinidazole 2020-0 2020- No 2000mg Take 4 Un bruce 500 mg 8-13 tablets by ity of tablet 00:00: 04:59 mouth [place] 00 :00 daily with Medical breakfast Branch for 1 day. METOPROLOL 2020-0 Yes [id number] TAKE 1/2 Univers TARTRATE 25 7-20 TABLET BY ity of mg tablet 00:00: MOUTH [place] 00 EVERY DAY Medical Branch METOPROLOL 2020-0 Yes [id number] TAKE 1/2 Univers TARTRATE 25 7-20 TABLET BY ity of mg tablet 00:00: MOUTH [place] 00 EVERY DAY Medical Branch METOPROLOL 2020-0 Yes [id number] TAKE 1/2 Univers TARTRATE 25 7-20 TABLET BY ity of mg tablet 00:00: MOUTH [place] 00 EVERY DAY Medical Branch METOPROLOL 2020-0 Yes [id number] TAKE 1/2 Univers TARTRATE 25 7-20 TABLET BY ity of mg tablet 00:00: MOUTH [place] 00 EVERY DAY Medical Branch METOPROLOL 2020-0 Yes [id number] TAKE 1/2 Univers TARTRATE 25 7-20 TABLET BY ity of mg tablet 00:00: MOUTH [place] 00 EVERY DAY Medical Branch METOPROLOL 2020-0 Yes [id number] TAKE 1/2 Univers TARTRATE 25 7-20 TABLET BY ity of mg tablet 00:00: MOUTH [place] 00 EVERY DAY Medical Branch METOPROLOL 2020-0 Yes [id number] TAKE 1/2 Univers TARTRATE 25 7-20 TABLET BY ity of mg tablet 00:00: MOUTH [place] 00 EVERY DAY Medical Branch METOPROLOL 2020-0 Yes [id number] TAKE 1/2 Univers TARTRATE 25 7-20 TABLET BY ity of mg tablet 00:00: MOUTH [place] 00 EVERY DAY Medical Branch METOPROLOL 2020-0 Yes [id number] TAKE 1/2 [facility] TARTRATE 25 7-20 TABLET BY ity of mg tablet 00:00: MOUTH [place] 00 EVERY DAY Medical Branch METOPROLOL 2020-0 Yes [id number] TAKE 1/2 [facility] TARTRATE 25 7-20 TABLET BY ity of mg tablet 00:00: MOUTH [place] 00 EVERY DAY Medical Branch METOPROLOL 2020-0 Yes [id number] TAKE 1/2 [facility] TARTRATE 25 7-20 TABLET BY ity of mg tablet 00:00: MOUTH [place] 00 EVERY DAY Medical Branch METOPROLOL 2020-0 Yes [id number] TAKE 1/2 [facility] TARTRATE 25 7-20 TABLET BY ity of mg tablet 00:00: MOUTH [place] 00 EVERY DAY Medical Branch METOPROLOL 2020-0 Yes [id number] TAKE 1/2 [facility] TARTRATE 25 7-20 TABLET BY ity of mg tablet 00:00: MOUTH [place] 00 EVERY DAY Medical Branch METOPROLOL 2020-0 Yes [id number] TAKE 1/2 [facility] TARTRATE 25 7-20 TABLET BY ity of mg tablet 00:00: MOUTH [place] 00 EVERY DAY Medical Branch METOPROLOL 2020-0 Yes [id number] TAKE 1/2 [facility] TARTRATE 25 7-20 TABLET BY ity of mg tablet 00:00: MOUTH [place] 00 EVERY DAY Medical Branch METOPROLOL 2020-0 Yes [id number] TAKE 1/2 [facility] TARTRATE 25 7-20 TABLET BY ity of mg tablet 00:00: MOUTH [place] 00 EVERY DAY Medical Branch METOPROLOL 2020-0 Yes [id number] TAKE 1/2 [facility] TARTRATE 25 7-20 TABLET BY ity of mg tablet 00:00: MOUTH [place] 00 EVERY DAY Medical Branch METOPROLOL 2020-0 Yes [id number] TAKE 1/2 [facility] TARTRATE 25 7-20 TABLET BY ity of mg tablet 00:00: MOUTH [place] 00 EVERY DAY Medical Branch METOPROLOL 2020-0 Yes [id number] TAKE 1/2 [facility] TARTRATE 25 7-20 TABLET BY ity of mg tablet 00:00: MOUTH [place] 00 EVERY DAY Medical Branch METOPROLOL 2020-0 Yes [id number] TAKE 1/2 [facility] TARTRATE 25 7-20 TABLET BY ity of mg tablet 00:00: MOUTH [place] 00 EVERY DAY Medical Branch METOPROLOL 2020-0 Yes [id number] TAKE 1/2 [facility] TARTRATE 25 7-20 TABLET BY ity of mg tablet 00:00: MOUTH [place] 00 EVERY DAY Medical Branch METOPROLOL 2020-0 2021- No [id number] TAKE 1/2 [facility] TARTRATE 25 7-20 01-13 TABLET BY it y of mg tablet 00:00: 00:00 MOUTH [place] 00 :00 EVERY DAY Medical Branch METOPROLOL 2020-0 2021- No [id number] TAKE 1/2 [facility] TARTRATE 25 7-20 01-13 TABLET BY it y of mg tablet 00:00: 00:00 MOUTH [place] 00 :00 EVERY DAY Medical Branch METOPROLOL 2020-0 2021- No [id number] TAKE 1/2 [facility] TARTRATE 25 7-20 -13 TABLET BY it y of mg tablet 00:00: 00:00 MOUTH [place] 00 :00 EVERY DAY Medical Branch metroNIDAZO 2020-0 2020- No 2000mg 2,000 mg, [facility] LE (FLAGYL) 12-01 Oral, ity of tablet 05:00: 04:09 ONCE, 1 [place] 2,000 mg 00 :00 dose, Fri Medica l 12/02/19 at Branch 0000, Routine
Reason for Anti-Infec tive: Documented Infection< br>Documen alfred Infection Site: Pelvic
Duration of Therapy: Other (see Comments) cefTRIAXone 2019-2019- No 1000mg 1,000 mg, [facility] (ROCEPHIN) 12-01 IV ity of 1,000 mg in 05:00: 16:59 Piggyback, [place] NaCl 0.9% 00 :00 ONCE, 1 Medical (NS) 50 mL dose, Fri Bran ch MINI-BAG 12/02/19 at 0000, 50 mL
Reas on for Anti-Infec tive: Documented Infection< br>Documen alfred Infection Site: Urine
D uration of Therapy: Other (see Comments) ketorolac 2019-2019- No 15mg 15 mg, Unive rs (TORADOL) 12-01 Slow IV ity of injection 04:00: 03:06 Push, [place] 15 mg 00 :00 ONCE, 1 Medical dose, [facility] Branch 12/01/19 at 2300, CHEYANNE
Fa culty member approving Restricted medication : BABAR MCCLELLAN NaCl 0.9% 2019- No 1000mL at 999 Uni vers (NS) bolus 12-01 mL/hr, ity of infusion 03:00: 04:25 1,000 mL, [place] 1,000 mL 00 :00 IV Medical Infusion, Branch ONCE, 1 dose, [facility] 12/01/19 at 2200, CHEYANNE cefdinir 2019-0 2020- No [id number] 300mg Take 1 U nivers 300 mg 11-30 capsule by ity of capsule 00:00: 04:59 mouth 2 [place] 00 :00 (two) Medical times Branch daily for 10 days. cefdinir 2020-0 2020- No [id number] 300mg Take 1 U nivers 300 mg 11-30 capsule by ity of capsule 00:00: 04:59 mouth 2 [place] 00 :00 (two) Medical times Branch daily for 10 days. cefdinir 2020-0 2020- No [id number] 300mg Take 1 U nivers 300 mg 7-16 07-27 capsule by ity of capsule 00:00: 04:59 mouth 2 [place] 00 :00 (two) Medical times Branch daily for 10 days. cefdinir 2020-0 2020- No [id number] 300mg Take 1 U nivers 300 mg 7-16 -27 capsule by ity of capsule 00:00: 04:59 mouth 2 [place] 00 :00 (two) Medical times Branch daily for 10 days. cefdinir 2019-0 2019- No [id number] 300mg Take 1 U nivers 300 mg 7-16 -27 capsule by ity of capsule 00:00: 04:59 mouth 2 [place] 00 :00 (two) Medical times Branch daily for 10 days. METOPROLOL 2020-0 Yes [id number] TAKE 1/2 [facility] TARTRATE 25 5-20 TABLET BY ity of mg tablet 00:00: MOUTH [place] 00 EVERY DAY Medical Branch METOPROLOL 2020-0 Yes [id number] TAKE 1/2 [facility] TARTRATE 25 5-20 TABLET BY ity of mg tablet 00:00: MOUTH [place] 00 EVERY DAY Medical Branch METOPROLOL 2020-0 Yes [id number] TAKE 1/2 [facility] TARTRATE 25 5-20 TABLET BY ity of mg tablet 00:00: MOUTH [place] 00 EVERY DAY Medical Branch METOPROLOL 2020-0 Yes [id number] TAKE 1/2 [facility] TARTRATE 25 5-20 TABLET BY ity of mg tablet 00:00: MOUTH [place] 00 EVERY DAY Medical Branch METOPROLOL 2020-0 2020- No [id number] TAKE 1/2 [facility] TARTRATE 25 5-20 07-20 TABLET BY it y of mg tablet 00:00: 00:00 MOUTH [place] 00 :00 EVERY DAY Medical Branch fluconazole 2020-0 2020- No [id number] 150mg Take 1 [facility] (DIFLUCAN) 4-17 04-18 tablet by ity of 150 mg 00:00: 04:59 mouth [place] tablet 00 :00 now for 1 Medical dose. Branch amoxicillin 2019-0 2020- No [id number] 875mg Take 1 [facility] 875 mg 4-16 04-27 tablet by ity of tablet 00:00: 04:59 mouth 2 [place] 00 :00 (two) Medical times Branch daily for 10 days. amoxicillin 2019-0 2019- No [id number] 875mg Take 1 [facility] 875 mg 4-16 04-27 tablet by ity of tablet 00:00: 04:59 mouth 2 [place] 00 :00 (two) Medical times Branch daily for 10 days. amoxicillin 2019-0 2020- No [id number] 875mg Take 1 [facility] 875 mg 08-31 tablet by ity of tablet 00:00: 04:59 mouth 2 [place] 00 :00 (two) Medical times Branch daily for 10 days. amoxicillin 2020-0 2020- No [id number] 875mg Take 1 [facility] 875 mg 08-31 tablet by ity of tablet 00:00: 04:59 mouth 2 [place] 00 :00 (two) Medical times Branch daily for 10 days. Nitrofurant 2019-0 2020- No [id number] 100mg Take 1 [facility] oin&Nit. 08-28 capsule by ity of Macrocryst 00:00: 04:59 mouth 2 [place] 100 mg 00 :00 (two) Medical capsule times Branch daily for 7 days. Nitrofurant 2020-0 2020- No [id number] 100mg Take 1 [facility] oin&Nit. 08-28 capsule by ity of Macrocryst 00:00: 04:59 mouth 2 [place] 100 mg 00 :00 (two) Medical capsule times Branch daily for 7 days. Nitrofurant 2019-0 2020- No [id number] 100mg Take 1 [facility] oin&Nit. 08-28 capsule by ity of Macrocryst 00:00: 04:59 mouth 2 [place] 100 mg 00 :00 (two) Medical capsule times Branch daily for 7 days. Nitrofurant 2019-0 2020- No [id number] 100mg Take 1 [facility] oin&Nit. 08-28 capsule by ity of Macrocryst 00:00: 04:59 mouth 2 [place] 100 mg 00 :00 (two) Medical capsule times Branch daily for 7 days. Nitrofurant 2020-0 2020- No [id number] 100mg Take 1 [facility] oin&Nit. 08-28 capsule by ity of Macrocryst 00:00: 04:59 mouth 2 [place] 100 mg 00 :00 (two) Medical capsule times Branch daily for 7 days. phenazopyri 2020-0 2020- No [id number] 200mg Take 1 [facility] dine 08-28 tablet by ity of (PYRIDIUM) 00:00: 04:59 mouth 3 [place] 200 mg 00 :00 (three) Medical tablet times Branch daily after meals for 2 days. phenazopyri 2019-0 2020- No [id number] 200mg Take 1 [facility] dine 4-13 04-16 tablet by ity of (PYRIDIUM) 00:00: 04:59 mouth 3 [place] 200 mg 00 :00 (three) Medical tablet times Branch daily after meals for 2 days. METOPROLOL 2020-0 Yes [id number] TAKE 1/2 [facility] TARTRATE 25 3-26 TABLET BY ity of mg tablet 00:00: MOUTH [place] 00 EVERY DAY Medical Branch METOPROLOL 2020-0 Yes [id number] TAKE 1/2 [facility] TARTRATE 25 3-26 TABLET BY ity of mg tablet 00:00: MOUTH [place] 00 EVERY DAY Medical Branch METOPROLOL 2020-0 Yes [id number] TAKE 1/2 [facility] TARTRATE 25 3-26 TABLET BY ity of mg tablet 00:00: MOUTH [place] 00 EVERY DAY Medical Branch METOPROLOL 2020-0 Yes [id number] TAKE 1/2 [facility] TARTRATE 25 3-26 TABLET BY ity of mg tablet 00:00: MOUTH [place] 00 EVERY DAY Medical Branch METOPROLOL 2020-0 Yes [id number] TAKE 1/2 [facility] TARTRATE 25 3-26 TABLET BY ity of mg tablet 00:00: MOUTH [place] 00 EVERY DAY Medical Branch METOPROLOL 2020-0 Yes [id number] TAKE 1/2 [facility] TARTRATE 25 3-26 TABLET BY ity of mg tablet 00:00: MOUTH [place] 00 EVERY DAY Medical Branch METOPROLOL 2020-0 Yes [id number] TAKE 1/2 [facility] TARTRATE 25 3-26 TABLET BY ity of mg tablet 00:00: MOUTH [place] 00 EVERY DAY Medical Branch METOPROLOL 2020-0 2020- No [id number] TAKE 1/2 [facility] TARTRATE 25 3-26 05-20 TABLET BY it y of mg tablet 00:00: 00:00 MOUTH [place] 00 :00 EVERY DAY Medical Branch METOPROLOL 2020-0 Yes TAKE 1/2 Uni vers TARTRATE 25 1-29 TABLET BY ity of mg tablet 00:00: MOUTH [place] 00 EVERY DAY Medical Branch METOPROLOL 2020-0 2020- No TAKE 1/2 [facility] TARTRATE 25 1-29 03-26 TABLET BY it y of mg tablet 00:00: 00:00 MOUTH [place] 00 :00 EVERY DAY Medical Branch metroNIDAZO 2019- Yes [id number] 500mg Take 1 [facility] LE 500 mg 2-15 tablet by ity o f tablet 00:00: mouth 2 00 (two) Medical times Branch daily. Nitrofurant 2018-05 Yes [id number] 100mg Take 1 [facility] oin&Nit. 2-15 capsule by ity o f Macrocryst 00:00: mouth 2 [place] (MACROBID) 00 (two) Medical 100 mg times Branch capsule daily. metroNIDAZO 2018-05 Yes [id number] 500mg Take 1 [facility] LE 500 mg 2-15 tablet by ity o f tablet 00:00: mouth 2 00 (two) Medical times Branch daily. Nitrofurant 2018-05 Yes [id number] 100mg Take 1 [facility] oin&Nit. 2-15 capsule by ity o f Macrocryst 00:00: mouth 2 [place] (MACROBID) 00 (two) Medical 100 mg times Branch capsule daily. metroNIDAZO 2018-05 Yes [id number] 500mg Take 1 [facility] LE 500 mg 2-15 tablet by ity o f tablet 00:00: mouth 2 00 (two) Medical times Branch daily. Nitrofurant 2018-05 Yes [id number] 100mg Take 1 [facility] oin&Nit. 2-15 capsule by ity o f Macrocryst 00:00: mouth 2 [place] (MACROBID) 00 (two) Medical 100 mg times Branch capsule daily. metroNIDAZO 2018-05 Yes [id number] 500mg Take 1 [facility] LE 500 mg 2-15 tablet by ity o f tablet 00:00: mouth 2 00 (two) Medical times Branch daily. Nitrofurant 2018-05 Yes [id number] 100mg Take 1 [facility] oin&Nit. 2-15 capsule by ity o f Macrocryst 00:00: mouth 2 [place] (MACROBID) 00 (two) Medical 100 mg times Branch capsule daily. metroNIDAZO 2018-05 Yes [id number] 500mg Take 1 [facility] LE 500 mg 2-15 tablet by ity o f tablet 00:00: mouth 2 00 (two) Medical times Branch daily. metroNIDAZO 2018-05 Yes [id number] 500mg Take 1 [facility] LE 500 mg 2-15 tablet by ity o f tablet 00:00: mouth 2 00 (two) Medical times Branch daily. metroNIDAZO 2018-05 Yes [id number] 500mg Take 1 [facility] LE 500 mg 2-15 tablet by ity o f tablet 00:00: mouth (two) Medical times Branch daily. metroNIDAZO 2018-05 Yes [id number] 500mg Take 1 [facility] LE 500 mg 2-15 tablet by ity o f tablet 00:00: mouth 2 (two) Medical times Branch daily. metroNIDAZO 2018-05 Yes [id number] 500mg Take 1 [facility] LE 500 mg 2-15 tablet by ity o f tablet 00:00: mouth (two) Medical times Branch daily. metroNIDAZO 2018-05 Yes [id number] 500mg Take 1 [facility] LE 500 mg 2-15 tablet by ity o f tablet 00:00: mouth (two) Medical times Branch daily. metroNIDAZO 2018-05 Yes [id number] 500mg Take 1 [facility] LE 500 mg 2-15 tablet by ity o f tablet 00:00: mouth (two) Medical times Branch daily. metroNIDAZO 2018-05 Yes [id number] 500mg Take 1 [facility] LE 500 mg 2-15 tablet by ity o f tablet 00:00: mouth (two) Medical times Branch daily. metroNIDAZO 2018-05 Yes [id number] 500mg Take 1 [facility] LE 500 mg 2-15 tablet by ity o f tablet 00:00: mouth (two) Medical times Branch daily. metroNIDAZO 2018-05 Yes [id number] 500mg Take 1 [facility] LE 500 mg 2-15 tablet by ity o f tablet 00:00: mouth (two) Medical times Branch daily. metroNIDAZO 2018-05 Yes [id number] 500mg Take 1 [facility] LE 500 mg 2-15 tablet by ity o f tablet 00:00: mouth (two) Medical times Branch daily. metroNIDAZO 2018-05 Yes [id number] 500mg Take 1 [facility] LE 500 mg 2-15 tablet by ity o f tablet 00:00: mouth (two) Medical times Branch daily. metroNIDAZO 2018-05 Yes [id number] 500mg Take 1 [facility] LE 500 mg 2-15 tablet by ity o f tablet 00:00: mouth (two) Medical times Branch daily. metroNIDAZO 2018-05 Yes [id number] 500mg Take 1 [facility] LE 500 mg 2-15 tablet by ity o f tablet 00:00: mouth 2 [place] 00 (two) Medical times Branch daily. metroNIDAZO 2018-05 Yes [id number] 500mg Take 1 [facility] LE 500 mg 2-15 tablet by ity o f tablet 00:00: mouth 2 [place] 00 (two) Medical times Branch daily. metroNIDAZO 2018-05- No [id number] 500mg Take 1 [facility] LE 500 mg 2-15 08-05 tablet by ity of tablet 00:00: 00:00 mouth 2 [place] 00 :00 (two) Medical times Branch daily. metroNIDAZO 2018-05- No [id number] 500mg Take 1 [facility] LE 500 mg 2-15 08-05 tablet by ity of tablet 00:00: 00:00 mouth 2 [place] 00 :00 (two) Medical times Branch daily. Nitrofurant 2018-05 2020- No [id number] 100mg Take 1 [facility] oin&Nit. 2-15 04-13 capsule by ity of Macrocryst 00:00: 00:00 mouth 2 [place] (MACROBID) 00 :00 (two) Medical 100 mg times Branch capsule daily. Nitrofurant 2018-05- No [id number] 100mg Take 1 [facility] oin&Nit. 2-15 04-13 capsule by ity of Macrocryst 00:00: 00:00 mouth 2 [place] (MACROBID) 00 :00 (two) Medical 100 mg times Branch capsule daily. naproxen Yes [id number] 500mg Take 1 [facility] (NAPROSYN) 8-22 104 tablet by ity of 500 mg 00:00: mouth 2 [place] tablet 00 (two) Medical times Branch daily with meals. naproxen Yes [id number] 500mg Take 1 [facility] (NAPROSYN) 8-22 104 tablet by ity of 500 mg 00:00: mouth 2 [place] tablet 00 (two) Medical times Branch daily with meals. naproxen 2018-0 Yes [id number] 500mg Take 1 [facility] (NAPROSYN) 8-22 104 tablet by ity of 500 mg 00:00: mouth 2 [place] tablet 00 (two) Medical times Branch daily with meals. naproxen 2018- Yes [id number] 500mg Take 1 [facility] (NAPROSYN) 8-22 104 tablet by ity of 500 mg 00:00: mouth 2 [place] tablet 00 (two) Medical times Branch daily with meals. naproxen 2019-0 Yes [id number] 500mg Take 1 [facility] (NAPROSYN) 8-22 104 tablet by ity of 500 mg 00:00: mouth 2 [place] tablet 00 (two) Medical times Branch daily with meals. naproxen 2019-0 Yes [id number] 500mg Take 1 [facility] (NAPROSYN) 8-22 104 tablet by ity of 500 mg 00:00: mouth 2 [place] tablet 00 (two) Medical times Branch daily with meals. naproxen 2018-0 Yes [id number] 500mg Take 1 [facility] (NAPROSYN) 8-22 104 tablet by ity of 500 mg 00:00: mouth 2 [place] tablet 00 (two) Medical times Branch daily with meals. naproxen 2018-0 Yes [id number] 500mg Take 1 [facility] (NAPROSYN) 8-22 104 tablet by ity of 500 mg 00:00: mouth 2 [place] tablet 00 (two) Medical times Branch daily with meals. naproxen 2018-0 Yes [id number] 500mg Take 1 [facility] (NAPROSYN) 8-22 104 tablet by ity of 500 mg 00:00: mouth 2 [place] tablet 00 (two) Medical times Branch daily with meals. naproxen 2018-0 Yes [id number] 500mg Take 1 [facility] (NAPROSYN) 8-22 104 tablet by ity of 500 mg 00:00: mouth 2 [place] tablet 00 (two) Medical times Branch daily with meals. naproxen 2018-0 Yes [id number] 500mg Take 1 [facility] (NAPROSYN) 8-22 104 tablet by ity of 500 mg 00:00: mouth 2 [place] tablet 00 (two) Medical times Branch daily with meals. naproxen 2018-0 Yes [id number] 500mg Take 1 [facility] (NAPROSYN) 8-22 104 tablet by ity of 500 mg 00:00: mouth 2 [place] tablet 00 (two) Medical times Branch daily with meals. naproxen 2019-0 Yes [id number] 500mg Take 1 [facility] (NAPROSYN) 8-22 104 tablet by ity of 500 mg 00:00: mouth 2 [place] tablet 00 (two) Medical times Branch daily with meals. naproxen 2019-0 Yes [id number] 500mg Take 1 [facility] (NAPROSYN) 8-22 104 tablet by ity of 500 mg 00:00: mouth 2 [place] tablet 00 (two) Medical times Branch daily with meals. naproxen 2018-0 Yes [id number] 500mg Take 1 [facility] (NAPROSYN) 8-22 104 tablet by ity of 500 mg 00:00: mouth 2 [place] tablet 00 (two) Medical times Branch daily with meals. naproxen 2018-0 Yes [id number] 500mg Take 1 [facility] (NAPROSYN) 8-22 104 tablet by ity of 500 mg 00:00: mouth 2 [place] tablet 00 (two) Medical times Branch daily with meals. naproxen 0 Yes [id number] 500mg Take 1 [facility] (NAPROSYN) 8-22 104 tablet by ity of 500 mg 00:00: mouth 2 [place] tablet 00 (two) Medical times Branch daily with meals. naproxen 0 Yes [id number] 500mg Take 1 [facility] (NAPROSYN) 8-22 104 tablet by ity of 500 mg 00:00: mouth 2 [place] tablet 00 (two) Medical times Branch daily with meals. naproxen 0 Yes [id number] 500mg Take 1 [facility] (NAPROSYN) 8-22 104 tablet by ity of 500 mg 00:00: mouth 2 [place] tablet 00 (two) Medical times Branch daily with meals. naproxen 0 Yes [id number] 500mg Take 1 [facility] (NAPROSYN) 8-22 104 tablet by ity of 500 mg 00:00: mouth 2 [place] tablet 00 (two) Medical times Branch daily with meals. naproxen 2018-0 Yes [id number] 500mg Take 1 [facility] (NAPROSYN) 8-22 104 tablet by ity of 500 mg 00:00: mouth 2 [place] tablet 00 (two) Medical times Branch daily with meals. naproxen 0 Yes [id number] 500mg Take 1 [facility] (NAPROSYN) 8-22 104 tablet by ity of 500 mg 00:00: mouth 2 [place] tablet 00 (two) Medical times Branch daily with meals. naproxen 2018-0 Yes [id number] 500mg Take 1 [facility] (NAPROSYN) 8-22 104 tablet by ity of 500 mg 00:00: mouth 2 [place] tablet 00 (two) Medical times Branch daily with meals. naproxen 2018-0 Yes [id number] 500mg Take 1 [facility] (NAPROSYN) 8-22 104 tablet by ity of 500 mg 00:00: mouth 2 [place] tablet 00 (two) Medical times Branch daily with meals. naproxen 2018-0 Yes [id number] 500mg Take 1 [facility] (NAPROSYN) 8-22 104 tablet by ity of 500 mg 00:00: mouth 2 [place] tablet 00 (two) Medical times Branch daily with meals. naproxen 2018-0 Yes [id number] 500mg Take 1 [facility] (NAPROSYN) 8-22 104 tablet by ity of 500 mg 00:00: mouth 2 [place] tablet 00 (two) Medical times Branch daily with meals. naproxen 0 Yes [id number] 500mg Take 1 [facility] (NAPROSYN) 8-22 104 tablet by ity of 500 mg 00:00: mouth 2 [place] tablet 00 (two) Medical times Branch daily with meals. naproxen 0 Yes [id number] 500mg Take 1 [facility] (NAPROSYN) 8-22 104 tablet by ity of 500 mg 00:00: mouth 2 [place] tablet 00 (two) Medical times Branch daily with meals. naproxen 0 Yes [id number] 500mg Take 1 [facility] (NAPROSYN) 8-22 104 tablet by ity of 500 mg 00:00: mouth 2 [place] tablet 00 (two) Medical times Branch daily with meals. naproxen 0 Yes [id number] 500mg Take 1 [facility] (NAPROSYN) 8-22 104 tablet by ity of 500 mg 00:00: mouth 2 [place] tablet 00 (two) Medical times Branch daily with meals. naproxen 0 Yes [id number] 500mg Take 1 [facility] (NAPROSYN) 8-22 104 tablet by ity of 500 mg 00:00: mouth 2 [place] tablet 00 (two) Medical times Branch daily with meals. naproxen 2018-0 Yes [id number] 500mg Take 1 [facility] (NAPROSYN) 8-22 104 tablet by ity of 500 mg 00:00: mouth 2 [place] tablet 00 (two) Medical times Branch daily with meals. naproxen 2018-0 Yes [id number] 500mg Take 1 [facility] (NAPROSYN) 8-22 104 tablet by ity of 500 mg 00:00: mouth 2 [place] tablet 00 (two) Medical times Branch daily with meals. naproxen 2018-0 Yes [id number] 500mg Take 1 [facility] (NAPROSYN) 8 104 tablet by ity of 500 mg 00:00: mouth 2 [place] tablet 00 (two) Medical times Branch daily with meals. naproxen Yes [id number] 500mg Take 1 [facility] (NAPROSYN) 8 104 tablet by ity of 500 mg 00:00: mouth 2 [place] tablet 00 (two) Medical times Branch daily with meals. naproxen Yes [id number] 500mg Take 1 [facility] (NAPROSYN) 01-06 104 tablet by ity of 500 mg 00:00: mouth 2 [place] tablet 00 (two) Medical times Branch daily with meals. naproxen Yes [id number] 500mg Take 1 [facility] (NAPROSYN) 8 104 tablet by ity of 500 mg 00:00: mouth 2 [place] tablet 00 (two) Medical times Branch daily with meals. naproxen 2020- No [id number] 500mg Take 1 [facility] (NAPROSYN) 01-06 104 tablet by ity of 500 mg 00:00: 00:00 mouth 2 [place] tablet 00 :00 (two) Medical times Branch daily with meals. naproxen 2020- No [id number] 500mg Take 1 [facility] (NAPROSYN) 01-06 104 tablet by ity of 500 mg 00:00: 00:00 mouth 2 [place] tablet 00 :00 (two) Medical times Branch daily with meals. naproxen 2020- No [id number] 500mg Take 1 [facility] (NAPROSYN) 01-06 104 tablet by ity of 500 mg 00:00: 00:00 mouth 2 [place] tablet 00 :00 (two) Medical times Branch daily with meals. fluconazole Yes [id number] 200mg Take 1 [facility] 200 mg 7-18 tablet by ity of tablet 00:00: mouth [place] 00 daily. Medical Branch fluconazole Yes [id number] 200mg Take 1 [facility] 200 mg 7-18 tablet by ity of tablet 00:00: mouth [place] 00 daily. Medical Branch fluconazole Yes [id number] 200mg Take 1 [facility] 200 mg 7-18 tablet by ity of tablet 00:00: mouth [place] 00 daily. Medical Branch fluconazole Yes [id number] 200mg Take 1 [facility] 200 mg 7-18 tablet by ity of tablet 00:00: mouth [place] 00 daily. [facility] Branch fluconazole 2019-0 Yes [id number] 200mg Take 1 [facility] 200 mg 7-18 tablet by ity of tablet 00:00: mouth [place] 00 daily. [facility] Branch fluconazole 2019-0 Yes [id number] 200mg Take 1 [facility] 200 mg 7-18 tablet by ity of tablet 00:00: mouth [place] 00 daily. [facility] Branch fluconazole 2019-0 Yes [id number] 200mg Take 1 [facility] 200 mg 7-18 tablet by ity of tablet 00:00: mouth [place] 00 daily. [facility] Branch fluconazole 2018-0 Yes [id number] 200mg Take 1 [facility] 200 mg 7-18 tablet by ity of tablet 00:00: mouth [place] 00 daily. [facility] fluconazole 2018-0 Yes [id number] 200mg Take 1 [facility] 200 mg 7-18 tablet by ity of tablet 00:00: mouth [place] 00 daily. [facility] fluconazole 2018- Yes [id number] 200mg Take 1 [facility] 200 mg 7-18 tablet by ity of tablet 00:00: mouth [place] 00 daily. [facility] Branch fluconazole 2019-0 Yes [id number] 200mg Take 1 [facility] 200 mg 7-18 tablet by ity of tablet 00:00: mouth [place] 00 daily. [facility] fluconazole 2019-0 Yes [id number] 200mg Take 1 [facility] 200 mg 7-18 tablet by ity of tablet 00:00: mouth [place] 00 daily. [facility] fluconazole 2018-0 Yes [id number] 200mg Take 1 [facility] 200 mg 7-18 tablet by ity of tablet 00:00: mouth [place] 00 daily. [facility] fluconazole 2019-0 Yes [id number] 200mg Take 1 [facility] 200 mg 7-18 tablet by ity of tablet 00:00: mouth [place] 00 daily. [facility] Branch fluconazole 2019-0 Yes [id number] 200mg Take 1 [facility] 200 mg 7-18 tablet by ity of tablet 00:00: mouth [place] 00 daily. [facility] Branch fluconazole 2019-0 Yes [id number] 200mg Take 1 [facility] 200 mg 7-18 tablet by ity of tablet 00:00: mouth [place] 00 daily. [facility] fluconazole 2019-0 2020- No [id number] 200mg Take 1 [facility] 200 mg 7-18 04-17 tablet by ity of tablet 00:00: 00:00 mouth [place] 00 :00 daily. [facility] Branch metroNIDAZO 2019-0 Yes [id number] 500mg Take 1 [facility] LE 500 mg 7-17 tablet by ity o f tablet 00:00: mouth [place] 00 every 12 Medical (twelve) Branch hours. metroNIDAZO 2019-0 Yes [id number] 500mg Take 1 [facility] LE 500 mg 7-17 tablet by ity o f tablet 00:00: mouth [place] 00 every 12 Medical (twelve) Branch hours. metroNIDAZO 2019-0 Yes [id number] 500mg Take 1 [facility] LE 500 mg 7-17 tablet by ity o f tablet 00:00: mouth [place] 00 every 12 Medical (twelve) Branch hours. metroNIDAZO 2019-0 Yes [id number] 500mg Take 1 [facility] LE 500 mg 7-17 tablet by ity o f tablet 00:00: mouth [place] 00 every 12 Medical (twelve) Branch hours. metroNIDAZO 2018-0 Yes [id number] 500mg Take 1 [facility] LE 500 mg 7-17 tablet by ity o f tablet 00:00: mouth [place] 00 every 12 Medical (twelve) Branch hours. metroNIDAZO 2018-0 Yes [id number] 500mg Take 1 [facility] LE 500 mg 7-17 tablet by ity o f tablet 00:00: mouth [place] 00 every 12 Medical (twelve) Branch hours. metroNIDAZO 2018-0 Yes [id number] 500mg Take 1 [facility] LE 500 mg 7-17 tablet by ity o f tablet 00:00: mouth [place] 00 every 12 Medical (twelve) Branch hours. metroNIDAZO 2018-0 Yes [id number] 500mg Take 1 [facility] LE 500 mg 7-17 tablet by ity o f tablet 00:00: mouth [place] 00 every 12 Medical (twelve) Branch hours. metroNIDAZO 2018-0 Yes [id number] 500mg Take 1 [facility] LE 500 mg 7-17 tablet by ity o f tablet 00:00: mouth [place] 00 every 12 Medical (twelve) Branch hours. metroNIDAZO 2019-0 Yes [id number] 500mg Take 1 [facility] LE 500 mg 7-17 tablet by ity o f tablet 00:00: mouth [place] 00 every 12 Medical (twelve) Branch hours. metroNIDAZO 2019-0 Yes [id number] 500mg Take 1 [facility] LE 500 mg 7-17 tablet by ity o f tablet 00:00: mouth [place] 00 every 12 Medical (twelve) Branch hours. metroNIDAZO 2018-0 Yes [id number] 500mg Take 1 [facility] 500 mg 7-17 tablet by [facility] o f tablet 00:00: mouth [place] 00 every 12 Medical (twelve) Branch hours. metroNIDAZO 2019-0 Yes [id number] 500mg Take 1 [facility] 500 mg 7-17 tablet by ity o f tablet 00:00: mouth [place] 00 every 12 Medical (twelve) Branch hours. metroNIDAZO 2019-0 Yes [id number] 500mg Take 1 [facility] 500 mg 7-17 tablet by ity o f tablet 00:00: mouth [place] 00 every 12 Medical (twelve) Branch hours. metroNIDAZO 2018-0 Yes [id number] 500mg Take 1 [facility] 500 mg 7-17 tablet by ity o f tablet 00:00: mouth [place] 00 every 12 Medical (twelve) Branch hours. metroNIDAZO 2018-0 Yes [id number] 500mg Take 1 [facility] 500 mg 7-17 tablet by ity o f tablet 00:00: mouth [place] 00 every 12 Medical (twelve) Branch hours. metroNIDAZO 2018- Yes [id number] 500mg Take 1 [facility] 500 mg 7-17 tablet by ity o f tablet 00:00: mouth [place] 00 every 12 Medical (twelve) Branch hours. metroNIDAZO 2018-0 Yes [id number] 500mg Take 1 [facility] 500 mg 7-17 tablet by ity o f tablet 00:00: mouth [place] 00 every 12 Medical (twelve) Branch hours. metroNIDAZO 2018-0 Yes [id number] 500mg Take 1 [facility] 500 mg 7-17 tablet by ity o f tablet 00:00: mouth [place] 00 every 12 Medical (twelve) Branch hours. metroNIDAZO 2018-0 Yes [id number] 500mg Take 1 [facility] 500 mg 7-17 tablet by ity o f tablet 00:00: mouth [place] 00 every 12 Medical (twelve) Branch hours. metroNIDAZO 2019-0 Yes [id number] 500mg Take 1 [facility] 500 mg 7-17 tablet by ity o f tablet 00:00: mouth [place] 00 every 12 Medical (twelve) Branch hours. metroNIDAZO 2019-0 Yes [id number] 500mg Take 1 [facility] 500 mg 7-17 tablet by ity o f tablet 00:00: mouth [place] 00 every 12 Medical (twelve) Branch hours. metroNIDAZO 2018-0 Yes [id number] 500mg Take 1 [facility] 500 mg 7-17 tablet by ity o f tablet 00:00: mouth [place] 00 every 12 Medical (twelve) Branch hours. metroNIDAZO 2018- Yes [id number] 500mg Take 1 [facility] 500 mg 7-17 tablet by ity o f tablet 00:00: mouth [place] 00 every 12 Medical (twelve) Branch hours. metroNIDAZO Yes [id number] 500mg Take 1 [facility] 500 mg 7-17 tablet by ity o f tablet 00:00: mouth [place] 00 every 12 Medical (twelve) Branch hours. metroNIDAZO Yes [id number] 500mg Take 1 [facility] 500 mg 7-17 tablet by ity o f tablet 00:00: mouth [place] 00 every 12 Medical (twelve) Branch hours. metroNIDAZO Yes [id number] 500mg Take 1 [facility] 500 mg 7-17 tablet by ity o f tablet 00:00: mouth [place] 00 every 12 Medical (twelve) Branch hours. metroNIDAZO 2020- No [id number] 500mg Take 1 [facility] 500 mg 7-17 08-05 tablet by ity of tablet 00:00: 00:00 mouth [place] 00 :00 every 12 Medical (twelve) Branch hours. metroNIDAZO 2020- No [id number] 500mg Take 1 [facility] 500 mg 7-17 08-05 tablet by ity of tablet 00:00: 00:00 mouth [place] 00 :00 every 12 Medical (twelve) Branch hours. metoprolol 2019- No [id number] 12.5mg Take 0.5 [facility] tartrate 25 5-07 11-04 tablets by i ty of mg tablet 00:00: 05:59 mouth [place] 00 :00 daily for Medical 180 days. Branch metoprolol 2019- No [id number] 12.5mg Take 0.5 [facility] tartrate 25 5-07 11-04 tablets by i ty of mg tablet 00:00: 05:59 mouth [place] 00 :00 daily for Medical 180 days. Branch metoprolol 2019- No [id number] 12.5mg Take 0.5 [facility] tartrate 25 5-07 11-04 tablets by i ty of mg tablet 00:00: 05:59 mouth [place] 00 :00 daily for Medical 180 days. [place] metoprolol 2019- No [id number] 12.5mg Take 0.5 [facility] tartrate 25 09-21-04 tablets by i ty of mg tablet 00:00: 05:59 mouth [place] 00 :00 daily for Medical 180 days. Branch metoprolol 2019- No [id number] 12.5mg Take 0.5 [facility] tartrate 25 09-21 tablets by i ty of mg tablet 00:00: 05:59 mouth [place] 00 :00 daily for Medical 180 days. Branch metoprolol 2019- No [id number] 12.5mg Take 0.5 [facility] tartrate 25 09-21 tablets by i ty of mg tablet 00:00: 05:59 mouth [place] 00 :00 daily for Medical 180 days. Branch metoprolol 2019- No [id number] 12.5mg Take 0.5 [facility] tartrate 25 09-21 tablets by i ty of mg tablet 00:00: 05:59 mouth [place] 00 :00 daily for Medical 180 days. Branch metoprolol 2019- No [id number] 12.5mg Take 0.5 [facility] tartrate 25 09-21 tablets by i ty of mg tablet 00:00: 05:59 mouth [place] 00 :00 daily for Medical 180 days. [place] omeprazole [id number] Yes [facility] 40 mg 5-02 ity of capsule 00:00: [place] [facility] ondansetron 2019-0 Yes Un[facility] s 4 mg tablet 5-02 ity of 00:00: [address] omeprazole 2019-0 Yes [facility] 40 mg 5-02 ity of capsule 00:00: [place] [facility] ondansetron 2019-0 Yes Un[facility] s 4 mg tablet 5-02 ity of 00:00: [place] 00 [facility] omeprazole 2019-0 Yes [facility] 40 mg 5-02 ity of capsule 00:00: [place] [facility] ondansetron 2019-0 Yes Un[facility] s 4 mg tablet 5-02 ity of 00:00: [place] 00 [facility] omeprazole 2019-0 Yes [facility] 40 mg 5-02 ity of capsule 00:00: [address] ondansetron 2019-0 Yes Un[facility] 4 mg tablet 5-02 ity of 00:00: [address] omeprazole 2019-0 Yes [facility] 40 mg 5-02 ity of capsule 00:00: [place] 00 [facility] ondansetron 2019-0 Yes Un[facility] s 4 mg tablet 5-02 ity of 00:00: [place] [address] [facility] Branch omeprazole 2019-0 Yes [facility] 40 mg 5-02 ity of capsule 00:00: [place] [address] [facility] ondansetron 2019-0 Yes [facility] 4 mg tablet 5-02 ity of 00:00: [place] [address] [facility] Branch omeprazole 2019-0 Yes [facility] 40 mg 5-02 ity of capsule 00:00: [place] [address] [facility] ondansetron 2019-0 Yes [facility] 4 mg tablet 5-02 ity of 00:00: [place] [address] [facility] omeprazole 2019-0 Yes [facility] 40 mg 5-02 ity of capsule 00:00: [place] [address] [facility] ondansetron 2019-0 Yes [facility] 4 mg tablet 5-02 ity of 00:00: [place] [address] [facility] omeprazole 2019-0 Yes [facility] 40 mg 5-02 ity of capsule 00:00: [place] [address] [facility] ondansetron 2019-0 Yes [facility] 4 mg tablet 5-02 ity of 00:00: [place] [address] [facility] omeprazole 2019-0 Yes [facility] 40 mg 5-02 ity of capsule 00:00: [place] [address] [facility] ondansetron 2019-0 Yes [facility] 4 mg tablet 5-02 ity of 00:00: [place] [address] [facility] omeprazole 2019-0 Yes [facility] 40 mg 5-02 ity of capsule 00:00: [place] [address] [facility] ondansetron 2019-0 Yes [facility] 4 mg tablet 5-02 ity of 00:00: [place] [address] [facility] omeprazole 2019-0 Yes [facility] 40 mg 5-02 ity of capsule 00:00: [place] [address] [facility] ondansetron 2019-0 Yes [facility] 4 mg tablet 5-02 ity of 00:00: [place] [address] [facility] omeprazole 2019-0 Yes [facility] 40 mg 5-02 ity of capsule 00:00: [place] [address] [facility] ondansetron 2019-0 Yes [facility] 4 mg tablet 5-02 ity of 00:00: [place] [address] [facility] omeprazole 2019-0 Yes [facility] 40 mg 5-02 ity of capsule 00:00: [place] [address] [facility] omeprazole 2019-0 Yes [facility] 40 mg 5-02 ity of capsule 00:00: [place] [address] [facility] omeprazole 2019-0 Yes [facility] 40 mg 5-02 ity of capsule 00:00: [place] [address] [facility] omeprazole 2019-0 Yes [facility] 40 mg 5-02 ity of capsule 00:00: [place] [address] [facility] omeprazole 2019-0 Yes [facility] 40 mg 5-02 ity of capsule 00:00: [place] [address] [facility] omeprazole 2019-0 Yes [facility] 40 mg 5-02 ity of capsule 00:00: [place] [address] [facility] omeprazole 2019-0 Yes [facility] 40 mg 5-02 ity of capsule 00:00: [place] [address] [facility] omeprazole 2019-0 Yes [facility] 40 mg 5-02 ity of capsule 00:00: [place] [address] [facility] omeprazole 2019-0 Yes [facility] 40 mg 5-02 ity of capsule 00:00: [place] [address] [facility] omeprazole 2019-0 Yes [facility] 40 mg 5-02 ity of capsule 00:00: [place] [address] [facility] omeprazole 2019-0 Yes [facility] 40 mg 5-02 ity of capsule 00:00: [place] [address] [facility] omeprazole 2019-0 Yes [facility] 40 mg 5-02 ity of capsule 00:00: [place] [address] [facility] omeprazole 2019-0 Yes [facility] 40 mg 5-02 ity of capsule 00:00: [place] [address] [facility] omeprazole 2019-0 Yes [facility] 40 mg 5-02 ity of capsule 00:00: [place] [address] [facility] omeprazole 2019-0 Yes [facility] 40 mg 5-02 ity of capsule 00:00: [place] [address] [facility] omeprazole 2019-0 Yes [facility] 40 mg 5-02 ity of capsule 00:00: [place] [address] [facility] omeprazole 2019-0 Yes [facility] 40 mg 5-02 ity of capsule 00:00: [place] [address] [facility] omeprazole 2019-0 Yes [facility] 40 mg 5-02 ity of capsule 00:00: [place] [address] [facility] omeprazole 2019-0 Yes [facility] 40 mg 5-02 ity of capsule 00:00: [place] [address] [facility] omeprazole 2019-0 Yes [facility] 40 mg 5-02 ity of capsule 00:00: [place] [address] [facility] omeprazole 2019-0 Yes [facility] 40 mg 5-02 ity of capsule 00:00: [place] [address] [facility] omeprazole 2019-0 Yes [facility] 40 mg 5-02 ity of capsule 00:00: [place] [address] [facility] omeprazole 2019-0 Yes [facility] 40 mg 5-02 ity of capsule 00:00: [place] [address] [facility] omeprazole 2019-0 Yes [facility] 40 mg 5-02 ity of capsule 00:00: [place] [address] [facility] omeprazole 2019-0 Yes [facility] 40 mg 5-02 ity of capsule 00:00: [place] [address] [facility] omeprazole 2019-0 Yes [facility] 40 mg 5-02 ity of capsule 00:00: [place] [address] [facility] omeprazole 2019-0 Yes [facility] 40 mg 5-02 ity of capsule 00:00: [place] [address] [facility] omeprazole 2019-0 Yes [facility] 40 mg 5-02 ity of capsule 00:00: [place] [address] [facility] omeprazole 2019-0 Yes [facility] 40 mg 5-02 ity of capsule 00:00: [place] [address] [facility] omeprazole 2019-0 Yes [facility] 40 mg 5-02 ity of capsule 00:00: [place] [address] [facility] omeprazole 2019-0 Yes [facility] 40 mg 5-02 ity of capsule 00:00: [place] [address] [facility] ondansetron 2019-0 Yes Un[facility] 4 mg tablet 5-02 ity of 00:00: [place] [address] [facility] omeprazole 2019-0 Yes [facility] 40 mg 5-02 ity of capsule 00:00: [place] [address] [facility] omeprazole 2019-0 Yes [facility] 40 mg 5-02 ity of capsule 00:00: [place] [address] [facility] omeprazole 2019-0 Yes [facility] 40 mg 5-02 ity of capsule 00:00: [place] [address] [facility] omeprazole 2019-0 Yes [facility] 40 mg 5-02 ity of capsule 00:00: [place] [address] [facility] omeprazole 2019-0 Yes [facility] 40 mg 5-02 ity of capsule 00:00: [place] [address] [facility] omeprazole 2019-0 Yes [facility] 40 mg 5-02 ity of capsule 00:00: [place] [address] [facility] omeprazole 2019-0 Yes [facility] 40 mg 5-02 ity of capsule 00:00: [place] [address] [facility] omeprazole 2019-0 Yes [facility] 40 mg 5-02 ity of capsule 00:00: [place] [address] [facility] ondansetron 2019-0 Yes Un[facility] 4 mg tablet 5-02 ity of 00:00: [place] [address] [facility] omeprazole 2019-0 Yes [facility] 40 mg 5-02 ity of capsule 00:00: [place] [address] [facility] omeprazole 2019-0 Yes [facility] 40 mg 5-02 ity of capsule 00:00: [place] [address] [facility] omeprazole 2019-0 Yes [facility] 40 mg 5-02 ity of capsule 00:00: [place] [address] [facility] omeprazole 2019-0 Yes [facility] 40 mg 5-02 ity of capsule 00:00: [place] [address] [facility] omeprazole 2019-0 Yes [facility] 40 mg 5-02 ity of capsule 00:00: [place] [address] [facility] omeprazole 2019-0 Yes [facility] 40 mg 5-02 ity of capsule 00:00: [place] [address] [facility] omeprazole 2019-0 Yes [facility] 40 mg 5-02 ity of capsule 00:00: [place] [address] [facility] omeprazole 2019-0 Yes [facility] 40 mg 5-02 ity of capsule 00:00: [place] [address] [facility] ondansetron 2019-0 Yes Univer s 4 mg tablet -02 ity of 00:00: [place] [address] [facility] omeprazole 2019-0 Yes [facility] 40 mg 5-02 ity of capsule 00:00: [place] [address] [facility] omeprazole 2019-0 Yes [facility] 40 mg 5-02 ity of capsule 00:00: [place] [address] [facility] omeprazole 2019-0 Yes [facility] 40 mg 5-02 ity of capsule 00:00: [place] [address] [facility] omeprazole 2019-0 Yes [facility] 40 mg 5-02 ity of capsule 00:00: [place] [address] [facility] ondansetron 2019-0 2020- No Unive rs 4 mg tablet 09-16 04-17 ity of 00:00: 00:00 [place] 00 :00 Medical Branch cetirizine 0 Yes [facility] (ZYRTEC) 10 7-17 ity of mg tablet 00:00: [place] [address] [facility] Branch cetirizine Yes [facility] (ZYRTEC) 10 7-17 ity of mg tablet 00:00: [place] [address] [facility] cetirizine 2016 Yes [facility] (ZYRTEC) 10 7-17 ity of mg tablet 00:00: [place] [address] [facility] Branch cetirizine Yes [facility] (ZYRTEC) 10 7-17 ity of mg tablet 00:00: [place] [address] [facility] cetirizine 2016 Yes [facility] (ZYRTEC) 10 7-17 ity of mg tablet 00:00: [place] [address] [facility] cetirizine Yes [facility] (ZYRTEC) 10 7-17 ity of mg tablet 00:00: [place] [address] [facility] cetirizine Yes [facility] (ZYRTEC) 10 7-17 ity of mg tablet 00:00: [place] 00 [facility] cetirizine 2016-0 Yes [facility] (ZYRTEC) 10 7-17 ity of mg tablet 00:00: [place] 00 [facility] cetirizine 2016-0 Yes [facility] (ZYRTEC) 10 7-17 ity of mg tablet 00:00: [place] [facility] cetirizine 2016-0 Yes [facility] (ZYRTEC) 10 7-17 ity of mg tablet 00:00: [place] [facility] cetirizine 2016-0 Yes [facility] (ZYRTEC) 10 7-17 ity of mg tablet 00:00: [place] [facility] cetirizine 2016-0 Yes [facility] (ZYRTEC) 10 7-17 ity of mg tablet 00:00: [place] [facility] cetirizine 2016-0 Yes [facility] (ZYRTEC) 10 7-17 ity of mg tablet 00:00: [place] [facility] cetirizine 2016-0 Yes [facility] (ZYRTEC) 10 7-17 ity of mg tablet 00:00: [place] [facility] cetirizine 2016-0 Yes [facility] (ZYRTEC) 10 7-17 ity of mg tablet 00:00: [place] [facility] cetirizine 2016-0 Yes [facility] (ZYRTEC) 10 7-17 ity of mg tablet 00:00: [place] [facility] cetirizine 2016-0 Yes [facility] (ZYRTEC) 10 7-17 ity of mg tablet 00:00: [place] [facility] cetirizine 2016-0 Yes [facility] (ZYRTEC) 10 7-17 ity of mg tablet 00:00: [place] [facility] cetirizine 2016-0 Yes [facility] (ZYRTEC) 10 7-17 ity of mg tablet 00:00: [place] [facility] cetirizine 2016-0 Yes [facility] (ZYRTEC) 10 7-17 ity of mg tablet 00:00: [place] [facility] cetirizine 2016-0 Yes [facility] (ZYRTEC) 10 7-17 ity of mg tablet 00:00: [place] [facility] cetirizine 2016-0 Yes [facility] (ZYRTEC) 10 7-17 ity of mg tablet 00:00: [place] [facility] cetirizine 2016-0 Yes [facility] ([facility]) 10 7-17 ity of mg tablet 00:00: [place] 00 [facility] cetirizine Yes [facility] ([facility]) 10 7-17 ity of mg tablet 00:00: [place] 00 [facility] cetirizine 2016 Yes [facility] ([facility]) 10 7-17 ity of mg tablet 00:00: [place] 00 [facility] cetirizine 2016 Yes [facility] ([facility]) 10 7-17 ity of mg tablet 00:00: [place] 00 [facility] cetirizine 2016 Yes [facility] ([facility]) 10 7-17 ity of mg tablet 00:00: [place] 00 Medical Branch cetirizine 2020- No Univer s ([facility]) 10 7-17 08-05 ity of mg tablet 00:00: 00:00 [place] 00 :00 Medical Branch cetirizine 2020- No Univer s ([facility]) 10 7-17 08-05 ity of mg tablet 00:00: 00:00 [place] 00 :00 Medical Branch Immunizations Ordered Filled Immunization Date Status Comments [facility] e Immunization Name Name Influenza Virus 2020-05-30 Completed Universit y of Vaccine Quad .5 mL 00:00:00 [place] [facility] IM 6+ MO Branch Influenza Virus 2020-05-30 Completed Universit y of Vaccine Quad .5 mL 00:00:00 [place] Medical IM 6+ MO Branch Influenza Virus 2020-05-30 Completed Universit y of Vaccine Quad .5 mL 00:00:00 [place] Medical IM 6+ MO Branch Influenza Virus 2020-05-30 Completed Universit y of Vaccine Quad .5 mL 00:00:00 [place] Medical IM 6+ MO Branch Influenza Virus 2020-05-30 Completed Universit y of Vaccine Quad .5 mL 00:00:00 [place] Medical IM 6+ MO Branch Influenza Virus 2020-05-30 Completed Universit y of Vaccine Quad .5 mL 00:00:00 [place] Medical IM 6+ MO Branch Influenza Virus 2020-05-30 Completed Universit y of Vaccine Quad .5 mL 00:00:00 [place] Medical IM 6+ MO Branch Influenza Virus 2020-05-30 Completed Universit y of Vaccine Quad .5 mL 00:00:00 [place] Medical IM 6+ MO Branch Influenza Virus 2020-05-30 Completed Universit y of Vaccine Quad .5 mL 00:00:00 [place] [facility] IM 6+ MO Branch Influenza Virus 2020-05-30 Completed Universit y of Vaccine Quad .5 mL 00:00:00 [place] [facility] IM 6+ MO Branch Influenza Virus 2020-05-30 Completed Universit y of Vaccine Quad .5 mL 00:00:00 [place] [facility] IM 6+ MO Branch Influenza Virus 2020-05-30 Completed Universit y of Vaccine Quad .5 mL 00:00:00 [place] [facility] IM 6+ MO Branch Influenza Virus 2020-05-30 Completed Universit y of Vaccine Quad .5 mL 00:00:00 [place] [facility] IM 6+ MO Branch Influenza Virus 2020-05-30 Completed Universit y of Vaccine Quad .5 mL 00:00:00 [place] [facility] IM 6+ MO Branch Influenza Virus 2020-05-30 Completed Universit y of Vaccine Quad .5 mL 00:00:00 [place] [facility] IM 6+ MO Branch Influenza Virus 2020-05-30 Completed Universit y of Vaccine Quad .5 mL 00:00:00 [place] [facility] IM 6+ MO Branch Influenza Virus 2020-05-30 Completed Universit y of Vaccine Quad .5 mL 00:00:00 [place] [facility] IM 6+ MO Branch Influenza Virus 2020-05-30 Completed Universit y of Vaccine Quad .5 mL 00:00:00 [place] [facility] IM 6+ MO Branch Influenza Virus 2020-05-30 Completed Universit y of Vaccine Quad .5 mL 00:00:00 [place] [facility] IM 6+ MO Branch Influenza Virus 2020-05-30 Completed Universit y of Vaccine Quad .5 mL 00:00:00 [place] [facility] IM 6+ MO Branch Influenza Virus 2020-05-30 Completed [facility]it y of Vaccine Quad .5 mL 00:00:00 [place] [facility] IM 6+ MO Branch Influenza Virus 2020-05-30 Completed [facility]it y of Vaccine Quad .5 mL 00:00:00 [place] [facility] IM 6+ MO Branch Influenza Virus 2018-04-19 Completed [facility]it y of Vaccine Quad .5 mL 00:00:00 [place] [facility] IM 6+ MO Branch Influenza Virus 2018-04-19 Completed [facility]it y of Vaccine Quad .5 mL 00:00:00 [place] [facility] IM 6+ MO Branch Influenza Virus 2018-04-19 Completed [facility]it y of Vaccine Quad .5 mL 00:00:00 [place] [facility] IM 6+ MO Branch Influenza Virus 2018-04-19 Completed [facility]it y of Vaccine Quad .5 mL 00:00:00 [place] [facility] IM 6+ MO Branch Influenza Virus 2018-04-19 Completed Universit y of Vaccine Quad .5 mL 00:00:00 [place] [facility] IM 6+ MO Branch Influenza Virus 2018-04-19 Completed Universit y of Vaccine Quad .5 mL 00:00:00 [place] [facility] IM 6+ MO Branch Influenza Virus 2018-04-19 Completed Universit y of Vaccine Quad .5 mL 00:00:00 [place] [facility] IM 6+ MO Branch Influenza Virus 2018-04-19 Completed Universit y of Vaccine Quad .5 mL 00:00:00 [place] [facility] IM 6+ MO Branch Influenza Virus 2018-04-19 Completed Universit y of Vaccine Quad .5 mL 00:00:00 [place] [facility] IM 6+ MO Branch Influenza Virus 2018-04-19 Completed Universit y of Vaccine Quad .5 mL 00:00:00 [place] [facility] IM 6+ MO Branch Influenza Virus 2018-04-19 Completed Universit y of Vaccine Quad .5 mL 00:00:00 [place] [facility] IM 6+ MO Branch Influenza Virus 2018-04-19 Completed Universit y of Vaccine Quad .5 mL 00:00:00 [place] [facility] IM 6+ MO Branch Influenza Virus 2018-04-19 Completed Universit y of Vaccine Quad .5 mL 00:00:00 [place] [facility] IM 6+ MO Branch Influenza Virus 2018-04-19 Completed Universit y of Vaccine Quad .5 mL 00:00:00 [place] [facility] IM 6+ MO Branch Influenza Virus 2018-04-19 Completed Universit y of Vaccine Quad .5 mL 00:00:00 [place] [facility] IM 6+ MO Branch Influenza Virus 2018-04-19 Completed Universit y of Vaccine Quad .5 mL 00:00:00 [place] [facility] IM 6+ MO Branch Influenza Virus 2018-04-19 Completed [facility]it y of Vaccine Quad .5 mL 00:00:00 [place] [facility] IM 6+ MO Branch Influenza Virus 2018-04-19 Completed [facility]it y of Vaccine Quad .5 mL 00:00:00 [place] [facility] IM 6+ MO Branch Influenza Virus 2018-04-19 Completed [facility]it y of Vaccine Quad .5 mL 00:00:00 [place] [facility] IM 6+ MO Branch Influenza Virus 2018-04-19 Completed [facility]it y of Vaccine Quad .5 mL 00:00:00 [place] [facility] IM 6+ MO Branch Influenza Virus 2018-04-19 Completed [facility]it y of Vaccine Quad .5 mL 00:00:00 [place] [facility] IM 6+ MO Branch Influenza Virus 2018-04-19 Completed [facility]it y of Vaccine Quad .5 mL 00:00:00 [place] [facility] IM 6+ MO Branch Influenza Virus 2018-04-19 Completed [facility]it y of Vaccine Quad .5 mL 00:00:00 [place] [facility] IM 6+ MO Branch Influenza Virus 2018-04-19 Completed [facility]it y of Vaccine Quad .5 mL 00:00:00 [place] [facility] IM 6+ MO Branch Influenza Virus 2018-04-19 Completed [facility]it y of Vaccine Quad .5 mL 00:00:00 [place] [facility] IM 6+ MO Branch Influenza Virus 2018-04-19 Completed [facility]it y of Vaccine Quad .5 mL 00:00:00 [place] [facility] IM 6+ MO Branch Influenza Virus 2018-04-19 Completed [facility]it y of Vaccine Quad .5 mL 00:00:00 [place] [facility] IM 6+ MO Branch Influenza Virus 2018-04-19 Completed [facility]it y of Vaccine Quad .5 mL 00:00:00 [place] [facility] IM 6+ MO Branch Influenza Virus 2018-04-19 Completed Universit y of Vaccine Quad .5 mL 00:00:00 [place] [facility] IM 6+ MO Branch Influenza Virus 2018-04-19 Completed [facility]it y of Vaccine Quad .5 mL 00:00:00 [place] [facility] IM 6+ MO Branch Influenza Virus 2018-04-19 Completed [facility]it y of Vaccine Quad .5 mL 00:00:00 [place] [facility] IM 6+ MO Branch Influenza Virus 2018-04-19 Completed [facility]it y of Vaccine Quad .5 mL 00:00:00 [place] [facility] IM 6+ MO Branch Influenza Virus 2018-04-19 Completed [facility]it y of Vaccine Quad .5 mL 00:00:00 [place] [facility] IM 6+ MO Branch Influenza Virus 2018-04-19 Completed [facility]it y of Vaccine Quad .5 mL 00:00:00 [place] [facility] IM 6+ MO Branch Influenza Virus 2018-04-19 Completed [facility]it y of Vaccine Quad .5 mL 00:00:00 [place] [facility] IM 6+ MO Branch Influenza Virus 2018-04-19 Completed [facility]it y of Vaccine Quad .5 mL 00:00:00 [place] [facility] IM 6+ MO Branch Influenza Virus 2018-04-19 Completed [facility]it y of Vaccine Quad .5 mL 00:00:00 [place] [facility] IM 6+ MO Branch Influenza Virus 2018-04-19 Completed [facility]it y of Vaccine Quad .5 mL 00:00:00 [place] [facility] IM 6+ MO Branch Influenza Virus 2018-04-19 Completed [facility]it y of Vaccine Quad .5 mL 00:00:00 [place] [facility] IM 6+ MO Branch Influenza Virus 2018-04-19 Completed [facility]it y of Vaccine Quad .5 mL 00:00:00 [place] [facility] IM 6+ MO Branch Influenza Virus 2018-04-19 Completed [facility]it y of Vaccine Quad .5 mL 00:00:00 [place] [facility] IM 6+ MO Branch Influenza Virus 2018-04-19 Completed [facility]it y of Vaccine Quad .5 mL 00:00:00 [place] [facility] IM 6+ MO Branch Influenza Virus 2018-04-19 Completed [facility]it y of Vaccine Quad .5 mL 00:00:00 [place] [facility] IM 6+ MO Branch Influenza Virus 2018-04-19 Completed Universit y of Vaccine Quad .5 mL 00:00:00 [place] [facility] IM 6+ MO Branch Influenza Virus 2018-04-19 Completed [facility]it y of Vaccine Quad .5 mL 00:00:00 [place] [facility] IM 6+ MO Branch Influenza Virus 2018-04-19 Completed [facility]it y of Vaccine Quad .5 mL 00:00:00 [place] [facility] IM 6+ MO Branch Influenza Virus 2018-04-19 Completed [facility]it y of Vaccine Quad .5 mL 00:00:00 [place] [facility] IM 6+ MO Branch Influenza Virus 2018-04-19 Completed [facility]it y of Vaccine Quad .5 mL 00:00:00 [place] [facility] IM 6+ [facility] Branch Influenza Virus 2018-04-19 Completed [facility]it y of Vaccine Quad .5 mL 00:00:00 [place] [facility] IM 6+ [facility] Branch Influenza Virus 2018-04-19 Completed [facility]it y of Vaccine Quad .5 mL 00:00:00 [place] [facility] IM 6+ MO Branch Influenza Virus 2018-04-19 Completed [facility]it y of Vaccine Quad .5 mL 00:00:00 [place] [facility] IM 6+ [facility] Branch Influenza Virus 2018-04-19 Completed [facility]it y of Vaccine Quad .5 mL 00:00:00 [place] [facility] IM 6+ [facility] Branch Influenza Virus 2018-04-19 Completed [facility] y of Vaccine Quad .5 mL 00:00:00 [place] [facility] IM 6+ [facility] Branch Influenza Virus 2018-04-19 Completed [facility]it y of Vaccine Quad .5 mL 00:00:00 [place] [facility] IM 6+ MO Branch Influenza Virus 2018-04-19 Completed [facility] y of Vaccine Quad .5 mL 00:00:00 [place] [facility] IM 6+ [facility] Branch Influenza Virus 2018-04-19 Completed [facility] y of Vaccine Quad .5 mL 00:00:00 [place] [facility] IM 6+ [facility] Branch Influenza Virus 2018-04-19 Completed [facility] y of Vaccine Quad .5 mL 00:00:00 [place] [facility] 6+ [facility] Influenza Virus 2018-04-19 Completed [facility] y of Vaccine Quad .5 mL 00:00:00 [place] [facility] IM 6+ [facility] Influenza Virus 2018-04-19 Completed [facility] .5 mL 00:00:00 [facility] Influenza Virus 2018-04-19 Completed [facility] .5 mL 00:00:00 [facility] Influenza Virus 2018-04-19 Completed [facility] .5 mL 00:00:00 [facility] 6[facility] Influenza Virus 2018-04-19 Completed [facility] .5 mL 00:00:00 [facility] 6[facility] Influenza Virus 2018-04-19 Completed [facility] .5 mL 00:00:00 [facility] 6[facility] Influenza Virus 2018-04-19 Completed [facility] .5 mL 00:00:00 [facility] 6[facility] Tdap 2015-07-02 Completed University of 00:00:00 [facility] Tdap 2015-07-02 Completed University of 00:00:00 [facility] Tdap 2015-07-02 Completed University of 00:00:00 [facility] Tdap 2015-07-02 Completed [facility] 00:00:00 [facility] Tdap 2015-07-02 Completed [facility] 00:00:00 [facility] Tdap 2015-07-02 Completed University of 00:00:00 [facility] Tdap 2015-07-02 Completed [facility] 00:00:00 [facility] Tdap 2015-07-02 Completed [facility] of 00:00:00 [facility] Tdap 2015-07-02 Completed [facility] of 00:00:00 [facility] Tdap 2015-07-02 Completed University of 00:00:00 [facility] Tdap 2015-07-02 Completed University of 00:00:00 [facility] Tdap 2015-07-02 Completed University of 00:00:00 [facility] Tdap 2015-07-02 Completed University of 00:00:[address] [facility] Tdap 2015-07-02 Completed [facility] of 00:00:00 [facility] Tdap 2015-07-02 Completed [facility] of 00:00:00 [facility] Tdap 2015-07-02 Completed [facility] of 00:00:00 [facility] TDAP 2015-07-02 Completed [facility] of 00:00:00 [facility] TDAP 2015-07-02 Completed University of 00:00:00 [facility] TDAP 2015-07-02 Completed [facility] of 00:00:00 [facility] TDAP 2015-07-02 Completed [facility] of 00:00:00 [facility] TDAP 2015-07-02 Completed [facility] 00:00:00 [facility] TDAP 2015-07-02 Completed [facility] 00:00:00 [facility] TDAP 2015-07-02 Completed [facility] of 00:00:00 [facility] TDAP 2015-07-02 Completed University of 00:00:[address] [facility] TDAP 2015-07-02 Completed University of 00:00:00 [facility] TDAP 2015-07-02 Completed [facility] of 00:00:00 [facility] TDAP 2015-07-02 Completed University of 00:00:[address] [facility] TDAP 2015-07-02 Completed University of 00:00:[address] [facility] TDAP 2015-07-02 Completed University of 00:00:[address] [facility] TDAP 2015-07-02 Completed University of 00:00:[address] [facility] TDAP 2015-07-02 Completed University of 00:00:[address] [facility] TDAP 2015-07-02 Completed [facility] 00:00:00 [facility] TDAP 2015-07-02 Completed [facility] of 00:00:00 [facility] TDAP 2015-07-02 Completed [facility] of 00:00:00 [facility] TDAP 2015-07-02 Completed [facility] of 00:00:00 [facility] TDAP 2015-07-02 Completed [facility] of 00:00:00 [facility] TDAP 2015-07-02 Completed [facility] of 00:00:00 [facility] TDAP 2015-07-02 Completed University of 00:00:[address] [facility] TDAP 2015-07-02 Completed University of 00:00:00 [facility] TDAP 2015-07-02 Completed University of 00:00:00 [facility] TDAP 2015-07-02 Completed University of 00:00:00 [facility] TDAP 2015-07-02 Completed University of 00:00:00 [facility] TDAP 2015-07-02 Completed [facility] of 00:00:00 [facility] TDAP 2015-07-02 Completed [facility] of 00:00:00 [facility] TDAP 2015-07-02 Completed [facility] of 00:00:00 [facility] TDAP 2015-07-02 Completed [facility] of 00:00:00 [facility] TDAP 2015-07-02 Completed [facility] of 00:00:00 [facility] Tdap 2015-07-02 Completed [facility] of 00:00:00 [facility] TDAP 2015-07-02 Completed [facility] of 00:00:00 [facility] TDAP 2015-07-02 Completed [facility] of 00:00:00 [facility] TDAP 2015-07-02 Completed [facility] of 00:00:00 [facility] TDAP 2015-07-02 Completed [facility] of 00:00:00 [facility] TDAP 2015-07-02 Completed [facility] of 00:00:00 [facility] TDAP 2015-07-02 Completed [facility] of 00:00:00 [facility] Tdap 2015-07-02 Completed [facility] of 00:00:00 [facility] TDAP 2015-07-02 Completed [facility] of 00:00:00 [facility] TDAP 2015-07-02 Completed [facility] of 00:00:00 [facility] TDAP 2015-07-02 Completed [facility] of 00:00:00 [facility] TDAP 2015-07-02 Completed University of 00:00:[address] [facility] TDAP 2015-07-02 Completed University of 00:00:00 [facility] TDAP 2015-07-02 Completed [facility] of 00:00:00 [facility] TDAP 2015-07-02 Completed [facility] of 00:00:00 [facility] Tdap 2015-07-02 Completed [facility] of 00:00:00 [facility] TDAP 2015-07-02 Completed University of 00:00:[address] [facility] Td 1996-12-28 Completed University of 00:00:00 [facility] Td 1996-12-28 Completed University of 00:00:[address] [facility] Td 1996-12-28 Completed [facility] of 00:00:00 [facility] Td 1996-12-28 Completed [facility] of 00:00:00 [facility] Td 1996-12-28 Completed [facility] of 00:00:00 [facility] Td 1996-12-28 Completed [facility] of 00:00:00 [facility] Td 1996-12-28 Completed [facility] of 00:00:00 [facility] Td 1996-12-28 Completed [facility] of 00:00:00 [facility] Td 1996-12-28 Completed [facility] of 00:00:00 [facility] Td 1996-12-28 Completed [facility] of 00:00:00 [facility] Td 1996-12-28 Completed [facility] of 00:00:00 [facility] Td 1996-12-28 Completed [facility] of 00:00:00 [facility] Td 1996-12-28 Completed [facility] of 00:00:00 [facility] Td 1996-12-28 Completed [facility] of 00:00:00 [facility] Td 1996-12-28 Completed [facility] of 00:00:00 [facility] Td 1996-12-28 Completed [facility] of 00:00:00 [facility] Td 1996-12-28 Completed [facility] of 00:00:00 [facility] Td 1996-12-28 Completed [facility] of 00:00:00 [facility] Td 1996-12-28 Completed [facility] of 00:00:00 [facility] Td 1996-12-28 Completed [facility] of 00:00:00 [facility] Td 1996-12-28 Completed [facility] of 00:00:00 [facility] Td 1996-12-28 Completed [facility] of 00:00:00 [facility] Td 1996-12-28 Completed [facility] of 00:00:00 [facility] Td 1996-12-28 Completed [facility] of 00:00:00 [facility] Td 1996-12-28 Completed [facility] of 00:00:00 [facility] Td 1996-12-28 Completed [facility] of 00:00:00 [facility] Td 1996-12-28 Completed University of 00:00:00 [facility] Td 1996-12-28 Completed University of 00:00:00 [facility] Td 1996-12-28 Completed [facility] of 00:00:00 [facility] Td 1996-12-28 Completed [facility] of 00:00:00 [facility] Td 1996-12-28 Completed [facility] of 00:00:00 [facility] Td 1996-12-28 Completed [facility] of 00:00:00 [facility] Td 1996-12-28 Completed [facility] of 00:00:00 [facility] Td 1996-12-28 Completed [facility] of 00:00:00 [facility] Td 1996-12-28 Completed [facility] of 00:00:00 [facility] Td 1996-12-28 Completed [facility] of 00:00:00 [facility] Td 1996-12-28 Completed [facility] of 00:00:00 [facility] Td 1996-12-28 Completed [facility] of 00:00:00 [facility] Td 1996-12-28 Completed [facility] of 00:00:00 [facility] Td 1996-12-28 Completed [facility] of 00:00:00 [facility] Td 1996-12-28 Completed [facility] of 00:00:00 [facility] Td 1996-12-28 Completed [facility] of 00:00:00 [facility] Td 1996-12-28 Completed [facility] of 00:00:00 [facility] Td 1996-12-28 Completed [facility] of 00:00:00 [facility] Td 1996-12-28 Completed [facility] of 00:00:00 [facility] Td 1996-12-28 Completed [facility] of 00:00:00 [facility] Td 1996-12-28 Completed [facility] of 00:00:00 [facility] Td 1996-12-28 Completed [facility] of 00:00:00 [facility] Td 1996-12-28 Completed University of 00:00:00 [facility] Td 1996-12-28 Completed [facility] of 00:00:00 [facility] Td 1996-12-28 Completed [facility] of 00:00:00 [facility] Td 1996-12-28 Completed [facility] of 00:00:00 [facility] Td 1996-12-28 Completed [facility] of 00:00:00 [facility] Td 1996-12-28 Completed [facility] of 00:00:00 [facility] Td 1996-12-28 Completed [facility] of 00:00:00 [facility] Td 1996-12-28 Completed [facility] of 00:00:00 [facility] Td 1996-12-28 Completed [facility] of 00:00:00 [facility] Td 1996-12-28 Completed [facility] of 00:00:00 [facility] Td 1996-12-28 Completed [facility] of 00:00:00 [facility] Td 1996-12-28 Completed [facility] of 00:00:00 [facility] Td 1996-12-28 Completed [facility] of 00:00:00 [facility] Td 1996-12-28 Completed [facility] of 00:00:00 [facility] Td 1996-12-28 Completed University of 00:00:00 [facility] Td 1996-12-28 Completed University of 00:00:00 [facility] Vital Signs Vital Name Observation Time Observation Value Comments Source Systolic blood 2020-11-15 16:52:00 123 mm[Hg] Univer sity of pressure [facility] Diastolic blood 2020-11-15 16:52:00 88 mm[Hg] Unive rsity of pressure [facility] Heart rate 2020-11-15 16:52:00 103 /min [facility]i [facility] Body temperature 2020-11-15 16:52:00 36.22 Alysa Univ ersity of [facility] Respiratory rate 2020-11-15 16:52:00 18 /min Univ ersity of [facility] Body weight 2020-11-15 16:52:00 100.336 kg [facility] BMI 2020-11-15 16:52:00 28.40 kg/m2 [facility] Oxygen saturation in 2020-11-15 16:52:00 99 /min University of Arterial blood by [place] [employer] Pulse oximetry Branch Systolic blood 2020-11-15 16:52:00 123 mm[Hg] Univer sity of pressure [facility] Diastolic blood 2020-11-15 16:52:00 88 mm[Hg] Unive rsity of pressure [facility] Heart rate 2020-11-15 16:52:00 103 /min [facility] Body temperature 2020-11-15 16:52:00 36.22 Alysa Univ [facility] of [facility] Respiratory rate 2020-11-15 16:52:00 18 /min Univ ersity of [facility] Body weight 2020-11-15 16:52:00 100.336 kg [facility] BMI 2020-11-15 16:52:00 28.40 kg/m2 [facility] Oxygen saturation in 2020-11-15 16:52:00 99 /min University of Arterial blood by [employer] Pulse oximetry Branch Systolic blood 2020-11-08 16:18:00 113 mm[Hg] Univer sity of pressure [facility] Diastolic blood 2020-11-08 16:18:00 65 mm[Hg] Unive rsity of pressure [facility] Heart rate 2020-11-08 16:18:00 95 /min [facility] Body temperature 2020-11-08 16:18:00 36.72 Alysa [facility] Respiratory rate 2020-11-08 16:18:00 18 /min Univ ersity of [facility] Body height 2020-11-08 16:18:00 188 cm [facility] Body weight 2020-11-08 16:18:00 99.508 kg [facility] BMI 2020-11-08 16:18:00 28.17 kg/m2 [facility] Systolic blood 2020-10-25 16:25:00 115 mm[Hg] Univer sity of pressure [facility] Diastolic blood 2020-10-25 16:25:00 85 mm[Hg] Unive rsity of pressure [facility] Heart rate 2020-10-25 16:25:00 95 /min [facility] [place] Body temperature 2020-10-25 16:25:00 36.17 Alysa [facility] Respiratory rate 2020-10-25 16:25:00 18 /min Univ ersity of [facility] Body height 2020-10-25 16:25:00 188 cm [facility] Body weight 2020-10-25 16:25:00 103.477 kg [facility] BMI 2020-10-25 16:25:00 29.29 kg/m2 [facility] Systolic blood 2020-08-07 03:00:00 109 mm[Hg] Univer sity of pressure [facility] Diastolic blood 2020-08-07 03:00:00 50 mm[Hg] Unive rsity of pressure [facility] Heart rate 2020-08-07 03:00:00 95 /min [facility] Respiratory rate 2020-08-07 03:00:00 18 /min Univ ersity of [facility] Oxygen saturation in 2020-08-07 03:00:00 99 /min University of Arterial blood by [facility] Pulse oximetry Branch Body temperature 2020-08-07 01:00:00 37.33 Alysa Univ ersity of [facility] Body weight 2020-08-07 01:00:00 107.502 kg [facility] BMI 2020-08-07 01:00:00 30.43 kg/m2 [facility] Systolic blood 2020-06-08 19:48:00 107 mm[Hg] Univer sity of pressure [facility] Diastolic blood 2020-06-08 19:48:00 74 mm[Hg] Unive rsity of pressure [facility] Heart rate 2020-06-08 19:48:00 102 /min [facility] Body temperature 2020-06-08 19:48:00 36.22 Alysa [facility] Respiratory rate 2020-06-08 19:48:00 18 /min Univ ersity of [facility] Body height 2020-06-08 19:48:00 188 cm [facility] Body weight 2020-06-08 19:48:00 107.729 kg [facility] BMI 2020-06-08 19:48:00 30.49 kg/m2 [facility] Systolic blood 2020-05-30 21:57:00 126 mm[Hg] Univer sity of pressure [facility] Diastolic blood 2020-05-30 21:57:00 73 mm[Hg] Unive rsity of pressure [facility] Heart rate 2020-05-30 21:57:00 105 /min [facility] Body temperature 2020-05-30 21:57:00 36.78 Alysa [facility] Respiratory rate 2020-05-30 21:57:00 18 /min Univ ersity of [facility] Body height 2020-05-30 21:57:00 188 cm [facility] Body weight 2020-05-30 21:57:00 110.734 kg [facility] BMI 2020-05-30 21:57:00 31.34 kg/m2 [facility] Systolic blood 2020-04-10 21:18:00 126 mm[Hg] Univer sity of pressure [facility] Diastolic blood 2020-04-10 21:18:00 75 mm[Hg] Unive rsity of pressure [facility] Heart rate 2020-04-10 21:18:00 87 /min [facility] Body temperature 2020-04-10 21:18:00 36.56 Alysa Univ ersity of [facility] Respiratory rate 2020-04-10 21:18:00 18 /min Univ ersity of [facility] Body height 2020-04-10 21:18:00 188 cm [facility] Body weight 2020-04-10 21:18:00 109.68 kg [facility] BMI 2020-04-10 21:18:00 31.05 kg/m2 Universi ty of [facility] Systolic blood 2020-04-01 03:25:00 134 mm[Hg] Univer sity of pressure [facility] Diastolic blood 2020-04-01 03:25:00 81 mm[Hg] Unive rsity of pressure [facility] Heart rate 2020-04-01 03:25:00 100 /min Universi ty of [facility] Body temperature 2020-04-01 03:25:00 36.83 Alysa Univ ersity of [facility] Respiratory rate 2020-04-01 03:25:00 20 /min Univ ersity of [facility] Body height 2020-04-01 03:25:00 188 cm [facility] Body weight 2020-04-01 03:25:00 111.131 kg [facility] BMI 2020-04-01 03:25:00 31.46 kg/m2 Universi ty of [facility] Oxygen saturation in 2020-04-01 03:25:00 100 /min University Arterial blood by [facility] Pulse oximetry [place] Body temperature 2020-03-28 16:50:00 36.5 Alysa Univ ersity of [facility] Respiratory rate 2020-03-28 16:50:00 16 /min Univ ersity of [facility] Body height 2020-03-28 16:50:00 188 cm [facility] Body weight 2020-03-28 16:50:00 111.131 kg Universi ty of [facility] BMI 2020-03-28 16:50:00 31.46 kg/m2 Universi ty of [facility] Systolic blood 2020-03-28 16:50:00 101 mm[Hg] Univer sity of pressure [facility] Diastolic blood 2020-03-28 16:50:00 56 mm[Hg] Unive rsity of pressure [facility] Heart rate 2020-03-28 16:50:00 93 /min Universi ty of [facility] Systolic blood 2019-12-21 19:13:00 114 mm[Hg] Univer sity of pressure [facility] Diastolic blood 2019-12-21 19:13:00 55 mm[Hg] Unive rsity of pressure [facility] Heart rate 2019-12-21 19:13:00 99 /min Universi ty of [facility] Body temperature 2019-12-21 19:13:00 36.72 Alysa Univ ersity of [facility] Respiratory rate 2019-12-21 19:13:00 20 /min Univ ersity of [facility] Body height 2019-12-21 19:13:00 188 cm Universi ty of [facility] Body weight 2019-12-21 19:13:00 108.863 kg Universi ty of [facility] BMI 2019-12-21 19:13:00 30.81 kg/m2 Universi ty of [facility] Systolic blood 2019-12-02 04:00:00 120 mm[Hg] Univer sity of pressure [facility] Diastolic blood 2019-12-02 04:00:00 53 mm[Hg] Unive rsity of pressure [facility] Heart rate 2019-12-02 04:00:00 78 /min Universi ty of [facility] Respiratory rate 2019-12-02 04:00:00 17 /min Univ ersity of [facility] Oxygen saturation in 2019-12-02 04:00:00 99 /min University of Arterial blood by [facility] Pulse oximetry Branch Body temperature 2019-12-02 01:51:00 36.61 Alysa Univ ersity of [facility] Body height 2019-12-02 01:51:00 188 cm Universi ty of [facility] Body weight 2019-12-02 01:51:00 95.709 kg Universi ty of [facility] BMI 2019-12-02 01:51:00 27.09 kg/m2 Universi ty of [facility] Systolic blood 2019-08-29 16:16:00 112 mm[Hg] Univer sity of pressure [facility] Diastolic blood 2019-08-29 16:16:00 70 mm[Hg] Unive rsity of pressure [facility] Heart rate 2019-08-29 16:16:00 88 /min Universi ty of [facility] Body temperature 2019-08-29 16:16:00 36.39 Alysa [facility] Respiratory rate 2019-08-29 16:16:00 18 /min [facility] height 2019-08-29 16:16:00 188 cm [facility] Body weight 2019-08-29 16:16:00 98.204 kg [facility] BMI 2019-08-29 16:16:00 27.80 kg/m2 [facility] Systolic blood 2019-01-06 16:27:00 107 mm[Hg] Univer sity of [facility] Diastolic blood 2019-01-06 16:27:00 66 mm[facility]Hg[facility] 2019-01-06 16:27:00 86 /min [facility] Body temperature 2019-01-06 16:27:00 36.5 Alysa [facility] Body height 2019-01-06 16:27:00 188 cm [facility] Body weight 2019-01-06 16:27:00 98.431 kg [facility] BMI 2019-01-06 16:27:00 27.86 kg/m2 [facility] Procedures Procedure Date / Time Performed Performing Clinician Sour e POCT TEST 2020-11-08 00:00:00 Meliza [facility] Susan Candis [facility] CT HEAD WO CONTRAST 2020-08-07 02:48:02 Babar Mcclellan [facility] URINALYSIS 2020-08-07 02:36:00 Babar Mcclellan [facility] POCT TEST 2020-08-07 02:34:00 Babar Mcclellan [facility] CONSENT/REFUSAL FOR 2020-08-07 00:53:24 [facility] Name [facility] TREATMENT GC & CHLAMYDIA 2020-05-30 22:31:00 Meliza [facility] AMPLIFIED ASSAY Susan Candis [facility] GALV ONLY - VAGINAL 2020-05-30 22:31:00 Meliza [facility] PATHOGENS BY NUCLEIC Susan Chirinos [facility] ACID TESTING FLU VACC ([id number]), 2020-05-30 22:18:01 Meliza [facility] 6+ MONTHS, IM, RAMONA Chirinos [facility] POCT URINALYSIS W/O 2020-04-10 00:00:00 Mine Sheth [facility] SPECIFIC GRAVITY Medical Branch URINALYSIS 2020-04-01 03:21:00 Babar Mcclellan [facility] CONSENT/REFUSAL FOR 2020-04-01 03:13:11 [facility], [facility] Name [facility] [place] TREATMENT ASSIGNMENT OF BENEFITS 2019-12-21 18:51:39 Doctor Unassigned, No [facility] CT ABDOMEN PELVIS WO 2019-12-02 02:59:58 Gianni Marsh [facility] CONTRAST [facility] BASIC METABOLIC PANEL 2019-12-02 02:09:00 Gianni Marsh [facility] (NA, K, CL, CO2, Medical Branch GLUCOSE, BUN, CREATININE, CA) CBC WITH DIFF 2019-12-02 02:09:00 Gianni Marsh [facility] POCT TEST 2019-12-02 02:07:00 Babar Mcclellan [facility] URINALYSIS 2019-12-02 02:03:00 Babar Mcclellan [facility] NOTICE OF PRIVACY 2019-12-02 01:45:06 Doctor Unassigned, No Univ [facility] PRACTICES [facility] CONSENT/REFUSAL FOR 2019-12-02 01:44:44 [facility] TREATMENT URINE CULTURE 2019-08-29 16:42:00 Arcelia Morris [facility] POCT URINALYSIS 2019-08-29 16:41:00 Arcelia Morris [facility] Encounters Start End Encounter Admission Attending Care Care Encounter Source Date/Time Date/Time Type Type Clinicians Facility Department ID 2021-03-17 [place] [id number] [facility]16 [facility] [place] [id number] [facility]15 [facility] [place] [id number] Univers 07:15:04 ity of [facility] 2021-04-18 2021-04-18 Outpatient MELIZA [place] [id number] Univers 11:15:00 11:15:00 , SUSAN [id number] it y of [facility] 2021-02-08 2021-02-08 Outpatient R [facility] [id number] Univers 11:15:00 11:15:00 , SUSAN [id number] it y of [facility] 2021-02-01 2021-02-01 Outpatient R MELIZA [place] [id number] Univers 16:00:00 16:00:00 , SUSAN [id number] it y of [facility] 2021-02-01 2021-02-01 Outpatient R [facility] [id number] Univers 16:00:00 16:00:00 , SUSAN it y of [facility] 2020-11-29 2020-11-29 Refill [place] Faizan [id number] Univers 00:00:00 00:00:00 , Susan Pediatric 350.1.13.10 it[place] [id number] [address] 2020-11-29 2020-11-29 Refill Meliza Faizan 1.2.840.114 [id number] 00:00:00 00:00:00 , Susan Pediatric 350.1.13.10 M s and 4.2.7.2.686 Adult [phone] [place] [address] Care [facility] 2020-11-16 2020-11-16 Refill [place] Faizan 1.2.840.114 [id number] Univers 00:00:00 00:00:00 , Susan Pediatric 350.1.13.10 ity of [place] [phone] [place] [address] Branch [facility] 2020-11-16 2020-11-16 Refill Meliza Faizan 1.2.840.114 [id number] 00:00:00 00:00:00 , Susan Pediatric 350.1.13.10 M s and 4.2.7.2.686 Adult [phone] [place] [address] Care [facility] 2020-11-15 2020-11-15 Office Faizan Morris 1.2.840.114 [id number] Univers 11:30:23 12:00:23 Visit Arcelia Pediatric 350.1.13.10 ity of [place] [phone] [address] 2020-11-15 2020-11-15 Office Faizan Morris 1.2.840.114 [id number] 11:30:23 12:00:23 Visit Arcelia Pediatric 350.1.13.10 s and 4.2.7.2.[address] Adult [id number] [address] 2020-11-15 2020-11-15 [facility] [id number] 41P-20 Univers 12:00:00 12:00:00 [facility] [id number] [facility] 2020-11-15 2020-11-15 [facility]patient [facility] [id number] Univers 12:00:00 12:00:00 [facility] 2020-11-14 2020-11-14 Telephone Kerry Collins 1.2.840.114 [id number] Univers 00:00:00 00:00:00 Rebeca Pediatric 350.1.13.10 ity of [place] [id number] [address] 2020-11-13 2020-11-13 Patient Meliza Gloria 1.2.840.114 [id number] Univers 00:00:00 00:00:00 Secure Susan Yang Pediatric 350.1.13.10 ity of [place] [id number] [address] 2020-11-13 2020-11-13 Patient Meliza Gloria 1.2.840.114 [id number] Univers 00:00:00 00:00:00 Secure Susan Yang Pediatric 350.1.13.10 ity of [place] [id number] [address] 2020-11-13 2020-11-13 Patient Meliza Faizan 1.2.840.114 [id number] 00:00:00 00:00:00 Secure Msg , Susan Pediatric 350.1.13.10 M s and 4.2.7.2.[address] Adult [id number] [address] 2020-11-08 2020-11-08 Office Meliza Faizan 1.2.840.114 [id number] Univers 11:09:23 12:22:47 Visit , Susan Pediatric 350.1.13.10 ity of [place] [id number] [address] 2020-11-08 2020-11-08 Outpatient R MELIZA [place] 518 141P-20 Univers 11:00:00 11:00:00 , SUSAN [id number] [facility] 2020-11-08 2020-11-08 Outpatient R MELIZA [place] [id number] Univers 11:00:00 11:00:00 , SUSAN [facility] 2020-11-02 2020-11-02 Telephone Meliza Faizan 1.2.840.114 [id number] Univers 00:00:00 00:00:00 , Susan Pediatric 350.1.13.10 ity of [place] [id number] [address] 2020-10-31 2020-10-31 Outpatient R NAOMI [place] [id number] 1P-20 Univers 00:00:00 00:00:00 LORENA [id number] [facility] 2020-10-31 2020-10-31 Outpatient R NAOMI [place] [id number] Univers 00:00:00 00:00:00 LORENA [facility] 2020-10-25 2020-10-25 Office Meliza Gloria 1.2.840.114 [id number] Univers 11:05:46 12:04:53 Visit , Susan Pediatric 350.1.13.10 ity of [place] s and 4.2.7.2.686 [facility] Adult [id number] [facility] Primary [address] [facility] 2020-10-25 2020-10-25 Outpatient [facility] 518 141P-20 Univers 11:00:00 11:00:00 , SUSAN [id number] it y of [facility] 2020-10-25 2020-10-25 Outpatient R [facility] [id number] Univers 11:00:00 11:00:00 , SUSAN it y of [facility] 2020-10-23 2020-10-23 Outpatient R [facility] 518 141P-20 Univers 16:15:00 16:15:00 , SUSAN [id number] it y of [facility] 2020-10-23 2020-10-23 Outpatient R [facility] [id number] Univers 16:15:00 16:15:00 , SUSAN it y of [facility] 2020-08-28 2020-08-28 Outpatient R [facility] 518 141P-20 Univers 15:45:00 15:45:00 , SUSAN [id number] it y of [facility] 2020-08-28 2020-08-28 Outpatient R [facility] [id number] Univers 15:45:00 15:45:00 , SUSAN it y of [facility] 2020-08-06 2020-08-06 Emergency [facility] 1.2.458.458 [id number] Univers 20:28:00 23:01:00 Babar Cobos 350.1.13.10 ity of [place] 4.2.7.2.686 [facility] [id number] [facility] [address] 2020-08-06 2020-08-06 Patient Jamie [facility] 1.2.840.114 [id number] Univers 00:00:00 00:00:00 Outreach [facility] 350.1.13.10 i ty of [facility] 4.2.7.2.[place] [id number] Md dical [facility] Branch 2020-07-06 2020-07-06 Outpatient R [place] [id number] -[id number] Univers 14:00:00 14:00:00 [id number] ity of [facility] 2020-07-06 2020-07-06 Outpatient R [place] [id number] Univers 14:00:00 14:00:00 ity of [facility] 2020-07-02 2020-07-02 Outpatient R [place] [id number] Univers 08:00:00 08:00:00 [id number] ity of [facility] 2020-07-02 2020-07-02 Outpatient R [place] [id number] Univers 08:00:00 08:00:00 ity [facility] 2020-06-15 2020-06-15 Patient Kerry Collins [facility] 1.2.840.114 [id number] Univers 00:00:00 00:00:00 Secure Msg Rebeca FRIENDSWO 350.1.13.10 ity of [place] 4[place]2.[place].2.[place]IC [id number] Md dical AND ADULT [address] [facility] 2020-06-11 2020-06-11 Telephone Kerry Collins 1.2.840.114 [id number] Univers 00:00:00 00:00:00 Ali Pediatric 350.1.13.10 ity of [place] and [place].2.[place] [id number] [facility] Primary [address] [facility] 2020-06-08 2020-06-08 Office Meliza Gloria 1.2.840.114 [id number] Univers 14:45:00 15:00:00 Visit , Susan Pediatric 350.1.13.10 ity of [place] and [place].7.2.[place] [id number] [facility] Primary [address] Care [facility] 2020-06-08 2020-06-08 Outpatient R MELIZA [place] 518 141P-20 Univers 14:45:00 14:45:00 , SUSAN [id number] it y of [facility] 2020-06-08 2020-06-08 Outpatient R MELIZA [place] [id number] Univers 14:45:00 14:45:00 , SUSAN it y of [facility] 2020-06-08 2020-06-08 Outpatient R KERRY COLLINS [place] [id number] Univers 14:40:00 14:40:00 ity of [facility] 2020-06-08 2020-06-08 Nurse Nurse, Gaudencio Gloria 1.2.84 0.114 [id number] Univers 13:56:21 14:16:21 Visit Kerry Collins Pediatric 350.1.13.10 ity of [place] [phone] [address] 2020-06-01 2020-06-01 Outpatient [place] [id number] Univers 10:40:00 10:40:00 [id number] ity of [facility] 2020-06-01 2020-06-01 Outpatient R [facility] [id number] Univers 10:40:00 10:40:00 , SUSAN it y [facility] 2020-05-30 2020-05-30 Office Meliza Gloria 1.2.840.114 [id number] Univers 15:50:39 17:01:06 Visit Susan Pediatric 350.1.13.10 ity of [place] [phone] [address] 2020-05-30 2020-05-30 Outpatient R [facility] 518 141P-20 Univers 16:00:00 16:00:00 , SUSAN [id number] it y [facility] 2020-05-30 2020-05-30 Outpatient R [facility] [id number] Univers 16:00:00 16:00:00 , SUSAN it y [facility] 2020-05-25 2020-05-25 Refill Kerry Collins 1.2.840.114 [id number] Univers 00:00:00 00:00:00 Rebeca Pediatric 350.1.13.10 ity of [place].2.[place] [id number] [address] 2020-05-25 2020-05-25 Deya Kerry Collins 1.2.840.114 [id number] Univers 00:00:00 00:00:00 Ali Pediatric 350.1.13.10 ity of [place]2.[place] [phone] [address] 2020-04-16 2020-04-16 [facility] 1.2.840.114 [id number] Univers 00:00:00 00:00:00 Tyler Cobos 350.1.13.10 i ty [place] [id number] Md dical nal [address] [place] [address] 2020-04-10 2020-04-10 Nurse Nurse, [facility] 1.2.840.114 [id number] Univers 14:03:44 15:24:29 Visit Fernanda Colmenares 350.1.13.10 ity of [place].2.[place] [phone] Md dical nal [address] [place] [address] 2020-04-10 2020-04-10 Outpatient R [place] [id number] Univers 14:30:00 14:30:00 [id number] ity of [facility] 2020-04-10 2020-04-10 Outpatient R [place] [id number] Univers 14:30:00 14:30:00 ity of [facility] 2020-04-09 2020-04-09 Telephone Adum, [facility] 1.2.275.312 [id number] Univers 00:00:00 00:00:00 Mine Cobos 350.1.13.10 it[place].2.[place] [phone] Md dical nal [address] [place] [address] 2020-04-06 2020-04-06 Outpatient R MELIZA [place] [id number] Univers 11:45:00 11:45:00 , SUSAN it y [facility] 2020-04-06 2020-04-06 Outpatient KERRY MALLORY [place] 518 141P-20 Univers 11:15:00 11:15:00 ity of [facility] 2020-04-04 2020-04-04 Telephone Adum, [facility] 1.2.102.819 [id number] Univers 00:00:00 00:00:00 Mine Cobos 350.1.13.10 [place] [phone] [facility] 134 [facility] 2020-03-31 2020-03-31 Emergency [facility] 1.2.790.026 [id number] Univers 21:29:00 22:52:00 Bridget Cobos 350.1.13.10 [place]2.[place].2.686 [place] [phone] [facility] 0[address] [place] 2020-03-31 2020-03-31 Orders Doctor JESS 1.2.840.114 [id number] Univers 00:00:00 00:00:00 Only Unassigned, LEROY 350.1.13.10 ity of [place] [facility] 4.2.7.2.686 Vaibhav as [phone] [facility] [address] [place] 2020-03-30 2020-03-30 Telephone Adum, [facility] 1.2.910.608 [id number] Univers 00:00:00 00:00:00 Mine Cobos 350.1.13.10 it[place] of [place] 4[place].2.[place] [phone] Md dic[address] 2020-03-30 2020-03-30 Kerry Butterfield 1.2.840.114 [id number] Univers 00:00:00 00:00:00 Ali Pediatric 350.1.13.10 ity of s and [place].2.[place] [id number] [facility] Primary [address] [facility] 2020-03-28 2020-03-28 Nurse Nurse, [facility] 1.2.840.114 [id number] Univers 10:16:37 10:31:37 Visit AdMine schmitt 350.1.13.10 ity of [place] 4[place].2.[place] [phone] [address] 2020-03-28 2020-03-28 Outpatient R [place] [id number] Univers 10:30:00 10:30:00 [id number] ity of [facility] 2020-03-28 2020-03-28 Outpatient R [place] [id number] Univers 10:30:00 10:30:00 ity [facility] 2020-01-06 2020-01-06 [facility] 1.2.840.114 [id number] Univers 00:00:00 00:00:00 Tyler Cobos 350.1.13.10 i ty [place].2.[place] [phone] [address] 2019-12-27 2019-12-27 [facility] 1.2.597.711 [id number] Univers 00:00:00 00:00:00 Mine Cobos 350.1.13.10 ity [place].2.[place] [phone] [address] 2019-12-26 2019-12-26 [facility] [id number] 1P-20 Univers 11:15:00 11:15:00 TYLER ity [facility] 2019-12-26 2019-12-26 [facility] [id number] Univers 11:15:00 11:15:00 TYLER ity [facility] 2019-12-21 2019-12-21 [facility] 1.2.840.114 [id number] Univers 13:53:18 14:45:28 Visit Mine Cobos 350.1.13.10 it[place] of [place].2.[place] [phone] [address] 2019-12-21 2019-12-21 [facility] [id number] -[id number] Univers 13:30:00 13:30:00 MINE ity of [facility] 2019-12-21 2019-12-21 Outpatient R MERYL, [place] [id number] Univers 13:30:00 13:30:00 MINE ity [facility] 2019-12-21 2019-12-21 Orders Doctor JESS 1.2.840.114 [id number] Univers 00:00:00 00:00:00 Only Unassigned, LEROY 350.1.13.10 ity of [place] [facility] 4.2.7.2.686 Vaibhav as [id number] [address] 2019-12-13 2019-12-13 Telephone Kp [facility] 1.2.840.114 [id number] Univers 00:00:00 00:00:00 Tyler Cobos 350.1.13.10 i ty of [place].2.[place] [phone] Md dical [address] 2019-12-06 2019-12-06 Refill [facility] 1.2.840.114 [id number] Univers 00:00:00 00:00:00 UnassignedPapito 350.1.13.10 ity of [place] 4[place]2.[place].2.[place] [phone] Md dic[address] 2019-12-06 2019-12-06 Refill Doctor Gloria 1.2.840.114 [id number] Univers 00:00:00 00:00:00 Unassigned, Pediatric 350.1.13.10 ity of [place] and 4.2.7.2.686 [place] [phone] [address] 2019-12-06 2019-12-06 Refill Doctor Gloria 1.2.840.114 [id number] Univers 00:00:00 00:00:00 Unassigned, Pediatric 350.1.13.10 ity of [place] and 4.2.7.2.686 [place] Adult [id number] [address] 2019-12-03 2019-12-03 Refill Kerry Collins 1.2.840.114 [id number] Univers 00:00:00 00:00:00 Ali Pediatric 350.1.13.10 ity of [place] and 4[place]2.7.2.686 [place] [id number] [address] 2019-12-01 2019-12-01 Emergency Maximo [facility] 1.2.840.114 [id number] Univers 21:00:45 23:27:00 Giannicornelia Cobos 350.1.13.10 i ty [place] 4[place]2.7.2.686 [place] [phone] [facility] [address] 2019-12-01 2019-12-01 Orders Doctor JESS 1.2.840.114 [id number] Univers 00:00:00 00:00:00 Only Unassigned, LEROY 350.1.13.10 ity of [place] [facility] 4.2.7.2.686 Vaibhav as [id number] [facility] [address] 2019-11-23 2019-11-23 Outpatient R KP, [place] [id number] Univers 14:30:00 14:30:00 TYLER ity of [facility] 2019-11-01 2019-11-01 Kerry Butterfield 1.2.840.114 [id number] Univers 00:00:00 00:00:00 Ali Pediatric 350.1.13.10 ity of [place] 4[place]2.7.2.[place] [id number] [address] 2019-10-05 2019-10-05 Kerry Butterfield 1.2.840.114 [id number] Univers 00:00:00 00:00:00 Ali Pediatric 350.1.13.10 ity of [place] and 4[place].7.2.[place] [id number] [address] 2019-08-29 2019-09-01 Urgent Arcelia Morris 1.2.840.1 14 [id number] Univers 11:10:52 09:07:40 Care Unknown, Attending Pediatric 350.1.13. 10 ity of [place] and 4.2.7.2.[place] [phone] [address] 2019-09-01 2019-09-01 Patient Faizan Kumari 1.2.840.114 [id number] Univers 00:00:00 00:00:00 Secure Msg Michelle S Pediatric 350.1.13.10 ity of [place] and 4.2.7.2.686 [place] [phone] [address] 2019-09-01 2019-09-01 Telephone Faizan Morris 1.2.840.114 [id number] Univers 00:00:00 00:00:00 Arcelia Pediatric 350.1.13.10 ity of [place] and 4.2.7.2.686 [place] [id number] [address] 2019-08-29 2019-08-29 Outpatient R [place] [id number] Univers 11:00:00 11:00:00 [id number]-08-[facility] 2019-08-29 Outpatient R UNKNOWN, [place] [id number] Univers 11:00:00 11:00:00 ATTENDING ity [facility] 2019-08-26 2019-08-26 Telephone Kerry Collins 1.2.840.114 [id number] Univers 00:00:00 00:00:00 Ali Pediatric 350.1.13.10 ity of [place] 4[place]2.7.2.[place] [phone] [address] 2019-08-11 2019-08-11 Kerry Butterfield 1.2.840.114 [id number] Univers 00:00:00 00:00:00 Ali Pediatric 350.1.13.10 ity of [place] 4.2.7.2.686 [place] [id number] [address] 2019-06-15 2019-06-15 Kerry Butterfield 1.2.840.114 [id number] Univers 00:00:00 00:00:00 Ali Pediatric 350.1.13.10 ity of [place] and 4.2.7.2.686 [place] [id number] [address] 2019-05-13 2019-05-13 Patient Doctor [facility] 1.2.840.114 [id number] Univers 00:00:00 00:00:00 Secure Msg UnassignedPapito 350.1.13.10 ity of [place] 4.[place].2.[place] [phone] [facility] 134 [facility] 2019-02-01 2019-02-01 Patient JESS Harris 1.2.840.114 [id number] Univers 00:00:00 00:00:00 Outreach Elneza A LEROY 350.1.13.10 ity of [facility] 4.2.7.2.686 Vaibhav as [phone] [address] 2019-01-06 2019-01-06 Office [facility] 1.2.180.803 [id number] Univers 11:22:10 11:52:10 Visit Cyrus Mcneil SPECIALTY 350.1.13.10 ity [facility] 4.2.7.2.[place] CENTER AT [phone] Md sarahia MICHEAL [address] [facility] 2019-01-05 2019-01-05 Abstract [facility] 1.2.840.114 [id number] Univers 00:00:00 00:00:00 [place] SPECIALTY 350.1.13.10 ity of [facility] 4.2.7.2.[place] CENTER AT [phone] Md sarahia ROSALIND [address] [place] [address] 2018-12-27 2018-12-[address] [facility] 1.2.840.114 [id number] Univers 00:00:00 00:00:00 Tyler Papito 350.1.13.10 i ty of [place].2.[place] [phone] [address] 2018-12-21 2018-12-21 Patient JESS Harris 1.2.840.114 [id number] Univers 00:00:00 00:00:00 Outreach Elneza A LEROY 350.1.13.10 ity of [facility] 4.2.7.2.686 Vaibhav as [phone] [address] 2018-12-13 2018-12-[address] [facility] 1.2.840.114 [id number] Univers 00:00:00 00:00:00 Tyler Cobos 350.1.13.10 i ty of [place].2.[place] [phone] Md dical nal 134 [facility] 2018-12-10 2018-12-10 Telephone Kp SCLEONEL 1.2.840.114 [id number] Univers 00:00:00 00:00:00 Tyler Cobos 350.1.13.10 i ty of [place] 4[place].2.[place] [phone] Md dical nal 134 [facility] 2018-10-15 2018-10-15 Emergency E MCLAUGHLIN, [facility] [id number] [address] [place] 02:31:00 03:40:00 [facility] 2018-10-01 2018-10-01 Outpatient C PERCY, [facility] [id number] [place] 08:05:00 23:59:00 [facility] Results Test Description Test Time Test Comments Results Result Comments Source POCT TEST 2020-11-08 16:50:00 Test Item Value Reference Range Interpretation Comme nts POCT PREG (test code = 1605) Negative On board controls acceptable with C Line (test code = 3574) Yes POCT PREG LOT # (test code = 3575) [id number] POCT PREG TEST DATE (test code = 3576) [id number] 16:50:00 Test Item Value Reference Range Interpretation Comments POCT PREG (test code = 1605) Negative On board controls acceptable with C Yes Line (test code = 3574) POCT PREG LOT # (test code = 3575) [id number] POCT PREG TEST DATE (test 04/16/22 code = 3576) [facility] HEAD WO [id number] 03:32:48 No acute intracranial abnormality. Preliminary Report Dictated by Resident: Joshua Disla I, Jess Ozuna MD., have reviewed this study and agree with theabove report.CT HEAD WO CONTRAST HISTORY: Ataxia, nontraumatic, stroke excluded COMPARISON: None2 TECHNIQUE: Noncontrast CT of the brain was obtained with coronal andsagittal reconstructions. FINDINGS: The ventricles and cerebral sulci arenormal in caliber and configuration.No hydrocephalus, midline shift or pathological extra-axial fluidcollection is present. The basal cisterns are unremarkable. There is no acute intracranial hemorrhage or significant mass effect. Noparenchymal attenuation abnormality. The carrion-white matter differentia tionis preserved. The mastoid air cells and paranasal air sinuses are clear. The calvariumand central skull base are unremarkable. Scleral calcifications areincidentally noted bilaterally. [facility], Radiant Results Inft User - 08/06/2020 10:33 PM CDTCT HEAD WO CONTRASTHISTORY: Ataxia, nontraumatic, strokeexcluded COMPARISON: [id number]: Noncontrast CT of the brain was obtained with coronal andsagittal reconstructions.FINDINGS:The ventricles and cerebral sulci are normal in caliber and configuration.No hydrocephalus, midline shift or pathological extra-axial fluidcollection is present. The basal cisterns are unremarkable.There is no acute intracranial hemorrhage or significant mass effect. Noparenchymal attenuation abnormality. The carrion-white matter differentiationis preserved.The mastoid air cells and paranasal air sinuses are clear. The calvariumand central skull base are unremarkable. Scleral calcifications areincidentally noted bilaterally.IMPRESSIONNo acute intracranial abnormality.Preliminary Report Dictated by Resident: Joshua Mccallum, Jess Ozuna MD., have reviewed this study and agree with theabove report. [facility] 03:31:33 Test Item Value Reference Range Interpretation Comments APPEARANCE (test code = Cloudy Clear A 8370660811) COLOR (test code = Yellow Yellow 1082020683) PH (test code = 4.8-8.0 5952031842) SP GRAVITY (test code = 1.003-1.030 1949637026) GLU U QUAL (test code = Normal Normal 7367113756) BLOOD (test code = Negative Negative 0305926743) KETONES (test code = Negative Negative 8689615559) PROTEIN (test code = Negative Negative 2887-8) UROBILIN (test code = Normal Normal 3637911261) BILIRUBIN (test code = Negative Negative 6717123473) NITRITE (test code = Negative Negative 5578949049) LEUK TELLY (test code = 500/uL Negative A 1590187327) RBC/HPF (test code = <1 See_Comment [Autom ated message] 2388314041) The system [employer] generated this result transmitted ref erence range: 0 - 3 HP F. The reference range was not used to int erpret this result as normal/abnormal . WBC/HPF (test code = See_Comment H [Autom ated message] 5360952124) The system [employer] generated this result transmitted ref erence range: 0 - 5 HP F. The reference range was not used to int erpret this result as normal/abnormal . BACTERIA (test code = Many Negative A 2195813579) MUCOUS (test code = Slight Negative LPF A 5545029071) SQ EPITH (test code = HPF 8860293415) Lab Interpretation (test Abnormal code = 45246-0) [facility] [id number] 02:34:00 Test Item Value Reference Range Interpretation Comments POCT PREG (test code = 1605) negative On board controls acceptable with present C Line (test code = 3574) POCT PREG LOT # (test code = 3575) [id number] POCT PREG TEST DATE (test 2022-01-15 code = 3576) Lab Interpretation (test code = Normal 37185-2) [facility] - VAGINAL PATHOGENS BY NUCLEIC ACID [id number] 21:53:00 Test Item Value Reference Range Interpretation Comments Trichomonas See Comment Negative No result due t o vaginalis (test code inhibit ors or = 4757145408) inadequate sample for testing. Deirdre species See Comment Negative No result du e to (test code = inhibitors or 4994681342) inadequate sample for testing. Deirdre glabrata See Comment Negative No result d ue to (test code = [place] 97187-6) inadequate sample for testing. Bacterial Vaginosis Positive Negative A (test code = 38160-4) SHERLEY (test code = Reliable results SHERLEY) are dependent on adequate specimen collection. This test detects Trichomonas vaginalis, Deirdre glabrata, and other Deirdre species (C. albicans, C. parapsilosis, C. dubliniensis, and C. tropicalis). ?The assay does not differentiate among organisms in the Deirdre species group. The Bacterial Vaginosis result is determined based on relative amounts of the following target organisms: Lactobacillus (L. gasseri, L. crispatus, and L. jensenii), Gardnerella vaginalis, and Atopobium vaginae. ?A single qualitative result is generated. ?This assay does not report individual organisms. A positive result obtained from a patient after therapeutic treatment cannot be interpreted as indicating the presence of viable organisms. ?For patients on whom a false positive result may have adverse psychosocial impact, retesting is advised. Indeterminate: Unable to generate a valid test result on this specimen. ?Please submit a new specimen for repeat testing if clinically indicated. This testing has not been validated for medico-legal purposes (sexual abuse in brody-pubertal and pre-pubertal children, sexual assault, and legal cases). Results from this testing should be interpreted in conjunction with other laboratory and clinical data available to the clinician. Lab Interpretation Abnormal (test code = 22107-8) [facility] CHLAMYD[facility] AMPLIFIED [id number] 19:53:00 Test Item Value Reference Range Interpretation Comments C. trachomatis Nucleic Negative Negative Acid (test code = 59627-5) N. gonorrhoeae Nucleic Negative Negative Acid (test code = 97348-2) SHERLEY (test code = SHERLEY) Reliable results are dependent on adequate specimen collection. ? A positive result obtained from a patient after therapeutic treatment cannot be interpreted as indicating the presence of viable organisms. ?For patients on whom a false positive result may have adverse psychosocial impact, retesting is advised. Indeterminate: Unable to generate a valid test result on this specimen. ?Please submit a new specimen for repeat testing if clinically indicated. Chlamydia trachomatis/Neisseria gonorrhoeae nucleic acid amplification testing (NAAT) has not been validated for medico-legal specimens (sexual abuse in brody-pubertal and pre-pubertal children, sexual assault, and legal cases). ?Culture for Chlamydia trachomatis and/or Neisseria gonorrhoeae from clinically appropriate sites is the method of choice in these cases. ? Results from this testing should be interpreted in conjunction with other laboratory and clinical data available to the clinician. Lab Interpretation Normal (test code = 40405-5) [facility]/O SPECIFIC [id number] 21:27:00 Test Item Value Reference Range Interpretation Comments POCT PH U (test code = 3254) 6 mg/dl 5-8 POCT U LEUK EST (test code = 2+ Negative - Negative 3263) POCT U NIT (test code = 3262) neg Negative - Negative POCT U PROT (test code = 3259) neg Negative - Negative POCT U GLU (test code = 3256) neg Negative - Negative POCT U KETONE (test code = 3258) neg Negative - Negative POCT U BLD (test code = 3257) neg Negative - Negative Lab Interpretation (test code = Abnormal 40842-9) [facility] 04:25:00 Test Item Value Reference Range Interpretation Comments APPEARANCE (test code = Clear Clear 8305062572) COLOR (test code = Yellow Yellow 3263971220) PH (test code = 4.8-8.0 6127770617) SP GRAVITY (test code = <=1.005 1.003-1.030 1078371016) GLU U QUAL (test code = Negative Negative 7867592330) BLOOD (test code = Trace Negative A 7609802081) KETONES (test code = Negative Negative 3408156334) PROTEIN (test code = Negative Negative 2887-8) UROBILIN (test code = 0.2 mg/dL See_Comment [Auto mated message] 6658656123) The system [employer] generated this result transmit alfred reference range : 0-1.0 mg/dL. Th e reference range was not used to interpret this result as normal/abnormal . BILIRUBIN (test code = Negative Negative 4376794190) NITRITE (test code = Negative Negative 2834615883) LEUK TELLY (test code = Large Negative A 6853538225) RBC/HPF (test code = See_Comment [Autom ated message] 6751154993) The system [employer] generated this result transmit alfred reference range : 0 - 3 HPF. The refe rence range was not u sed to interpret th is result as normal/abnormal . WBC/HPF (test code = See_Comment [Autom ated message] 9841890400) The system [employer] generated this result transmit alfred reference range : 0 - 5 HPF. The refe rence range was not u sed to interpret th is result as normal/abnormal . BACTERIA (test code = Few Negative A 3642920556) SQ EPITH (test code = HPF 0262888212) Lab Interpretation (test Abnormal code = 72074-2) [facility] 02:59:00 Test Item Value Reference Range Interpretation Comments APPEARANCE (test code = Cloudy Clear A 9390675915) COLOR (test code = Yellow Yellow 4386424818) PH (test code = 4.8-8.0 0764816423) SP GRAVITY (test code = 1.003-1.030 8558716441) GLU U QUAL (test code = Normal Normal 9661174062) BLOOD (test code = 1+ Negative A 0146003443) KETONES (test code = Negative Negative 8188546811) PROTEIN (test code = Negative Negative 2887-8) UROBILIN (test code = Normal Normal 8577075087) BILIRUBIN (test code = Negative Negative 1511765589) NITRITE (test code = Negative Negative 0268164257) LEUK TELLY (test code = 500/uL Negative A 2813693041) RBC/HPF (test code = See_Comment H [Autom ated message] 9702198885) The system [employer] generated this result transmitted ref erence range: 0 - 3 HP F. The reference range was not used to int erpret this result as normal/abnormal . WBC/HPF (test code = See_Comment H [Autom ated message] 2688012615) The system [employer] generated this result transmitted ref erence range: 0 - 5 HP F. The reference range was not used to int erpret this result as normal/abnormal . BACTERIA (test code = Few Negative A 1400942653) MUCOUS (test code = Marked Negative LPF A 2475786299) SQ EPITH (test code = HPF 5168282203) TRICHOMONA (test code = See_Comment H [Au tomated message] 9699766673) The system [employer] generated this result transmitted ref erence range: <=1 HPF. The reference range was not used to int erpret this result as normal/abnormal . Lab Interpretation (test Abnormal code = 60481-8) [facility] (NA, K, CL, CO2, GLUCOSE, BUN, CREATININE, CA)2019-12-02 02:48:00 Test Item Value Reference Range Interpretation Comments NA (test code = 136 mmol/L 135-145 2010600122) K (test code = 3.9 mmol/L 3.5-5 6801285707) CL (test code = 104 mmol/L 98-108 6025972442) CO2 TOTAL (test code = 24 mmol/L 23-31 8719762178) AGAP (test code = 2-16 4102639197) BUN (test code = 14 mg/dL 7-23 4912493009) GLUCOSE (test code = 113 mg/dL 70-110 H 9479496545) CREATININE (test code = 0.76 mg/dL 0.5-1.04 0732740619) CALCIUM (test code = 9.7 mg/dL 8.6-10.6 8008539744) eGFR Calculation mL/min/1.73m2 (Non-) (test code = 7555635486) eGFR Calculation mL/min/1.73m2 () (test code = 0419302787) SHERLEY (test code = SHERLEY) Association of Glomerular Filtration Rate (GFR) and Staging of Kidney Disease* + --+ --+ ------+| GFR (mL/min/1.73 m2) ?| With Kidney Damage ?| ?Without Kidney Damage+ --------+ --------+ +| ?>90 ?| ?Stage one ?| ? Normal ?+ ---+ ---+ -------+| ?60-89 ?| ?Stage two ?| ? Decreased GFR ? + --+ --+ ------+| ?30-59 ?| ?Stage three ?| ? Stage three ? + --+ --+ ------+| ?15-29 ?| ?Stage four ? | ? Stage four ?+ ---+ ---+ -------+| ?<15 (or dialysis) ? ?| ?Stage five ? | ? Stage five ?+ ---+ ---+ -------+ *Each stage assumes the associated GFR level has been in effect for at least three months. ?Stages 1 to 5, with or without kidney disease, indicate chronic kidney disease. Notes: Determination of stages one and two (with eGFR >59mL/min/1.73 m2) requires estimation of kidney damage for at least three months as defined by structural or functional abnormalities of the kidney, manifested by either:Pathological abnormalities or Markers of kidney damage (including abnormalities in the composition of the blood or urine or abnormalities in imaging tests). Lab Interpretation Abnormal (test code = 12005-5) [facility] with [id number] 02:36:00 Test Item Value Reference Range Interpretation Comments WBC (test code = See_Comment [Automated 6690-2) message] The sy stem which generated this result transmitted reference range : 4.30 - 11.10 10*3/?L. The reference range was not used to interpret this result as normal/abnormal . RBC (test code = See_Comment [Automated 789-8) message] The sy stem which generated this result transmitted reference range : 3.93 - 5.25 10*6/?L. The reference range was not used to interpret this result as normal/abnormal . HGB (test code = 11.5 g/dL 11.6-15 L 718-7) HCT (test code = 35.5 % 35.7-45.2 L 4544-3) MCV (test code = 82.4 fL 80.6-95.5 787-2) MCH (test code = 26.7 pg 25.9-32.8 785-6) MCHC (test code = 32.4 g/dL 31.6-35.1 786-4) RDW-SD (test code = 47.0 fL 39-49.9 45779-8) RDW-CV (test code = 15.7 % 12-15.5 H 788-0) PLT (test code = See_Comment [Automated 777-3) message] The sy stem which generated this result transmitted reference range : 166 - 358 10*3/ ?L. The reference r sharda was not used to interpret this result as normal/abnormal . MPV (test code = 11.2 fL 9.5-12.9 91867-7) NRBC/100 WBC (test See_Comment [Automat ed code = 3169106154) message] The system which generated this result transmitted reference range : 0.0 - 10.0 /100 WBCs. The refer ence range was not u sed to interpret th is result as normal/abnormal . NRBC x10^3 (test code <0.01 See_Comment [Auto mated = 6929149735) message] The s ystem which generated this result transmitted reference range : 10*3/?L. The reference range was not used to interpret this result as normal/abnormal . GRAN MAT (NEUT) % 69.9 % (test code = 770-8) IMM GRAN % (test code 0.50 % = 4904556452) LYMPH % (test code = 22.1 % 736-9) MONO % (test code = 4.2 % 5905-5) EOS % (test code = 3.0 % 713-8) BASO % (test code = 0.3 % 706-2) GRAN MAT x10^3(ANC) 6.21 10*3/uL 1.88-7.09 (test code = 2676878271) IMM GRAN x10^3 (test 0.04 10*3/uL 0-0.06 code = 5770997616) LYMPH x10^3 (test code 1.96 10*3/uL 1.32-3.29 = 731-0) MONO x10^3 (test code 0.37 10*3/uL 0.33-0.92 = 742-7) EOS x10^3 (test code = 0.27 10*3/uL 0.03-0.39 711-2) BASO x10^3 (test code 0.03 10*3/uL 0.01-0.07 = 704-7) Lab Interpretation Abnormal (test code = 93946-8) [facility] [id number] 02:11:00 Test Item Value Reference Range Interpretation Comments POCT PREG (test code = 1605) Negative On board controls acceptable with Yes C Line (test code = 3574) POCT PREG LOT # (test code = 3575) [id number] POCT PREG TEST DATE (test 12/15/2020 code = 3576) Lab Interpretation (test code = Normal 36077-7) [facility] [id number] 20:34:00 Test Item Value Reference Range Interpretation Comments URINE CULTURE (test 10,000-100,000 CFU/mL code = 630-4) Streptococcus viridans group SHERLEY (test code = Penicillin and ampicillin SHERLEY) are drugs of choice for treatment of beta-hemolytic streptococcal infections. In accordance with CLSI M100 guidelines, susceptibility testing of penicillin and other beta-lactams need not be performed due to the extremely rare nature of non-susceptible isolates. [facility] URINALYSIS W SPECIFIC [id number] 16:41:00 Test Item Value Reference Range Interpretation Comments POCT U SP GRAV (test code = 1.030 mg/dl 1.005-1.025 A 3255) POCT PH U (test code = 3254) 5 mg/dl 5-8 POCT U LEUK EST (test code = ++ Negative - Negative 3263) POCT U NIT (test code = 3262) negative Negative - Negative POCT U PROT (test code = trace Negative - Negative 3259) POCT U GLU (test code = 3256) normal Negative - Negative POCT U KETONE (test code = negative Negative - Negative 3258) POCT U UROBILI (test code = normal 0.2-1 3260) POCT U BILI (test code = negative Negative - Negative 3261) POCT U BLD (test code = 3257) about 250 Negative - Negative POCT U COLOR (test code = yellow 3266) POCT U APPEAR (test code = cloudy 3267) Lab Interpretation (test code Abnormal = 18607-5) [facility] URINALYSIS W SPECIFIC [id number] 16:41:00 Test Item Value Reference Range Interpretation Comments POCT U SP GRAV (test code = 1.030 mg/dl 1.005-1.025 A 3255) POCT PH U (test code = 3254) 5 mg/dl 5-8 POCT U LEUK EST (test code = ++ Negative - Negative 3263) POCT U NIT (test code = 3262) negative Negative - Negative POCT U PROT (test code = trace Negative - Negative 3259) POCT U GLU (test code = 3256) normal Negative - Negative POCT U KETONE (test code = negative Negative - Negative 3258) POCT U UROBILI (test code = normal 0.2-1 3260) POCT U BILI (test code = negative Negative - Negative 3261) POCT U BLD (test code = 3257) about 250 Negative - Negative POCT U COLOR (test code = yellow 3266) POCT U APPEAR (test code = cloudy 3267) Lab Interpretation (test code Abnormal = 75429-2) [facility] ABDOMEN AND PELVIS WITH [id number] 08:51:45EXAM: CT ABDOMEN AND PELVIS WITH CONTRAST.LOCATION: D4.HISTORY: [id number]: Disorder of [id number]: Benign neoplasm of colon.COMPARISON:None.TECHNIQUE:CT abdomen and pelvis [...] kidney istoo small to characterize. The liver, p ancreas, spleen, bilateral adrenalglands, and left kidney appear [...] No acute osseous abnormality is identified. No aggres sive lytic orblastic lesions are seen.IMPRESSION:4.0 cm left adnexal cyst, likely within the left ovary.Mild physiologic pelvic ascites."
[2021-04-14 20:13] LABS: Urine Blood 2+ (Negative); Urine Glucose Negative (Negative); Urine Protein 1+ (Negative); Urine Specific Gravity >=1.030 (1.005-1.030); Urine pH 5.5 (5.0-7.0)
[2021-04-14 21:20] LABS: Calcium Oxalate Crystals- Ur FEW (NONE SEEN); Urine Bacteria 20-50 /HPF (<20)
[2021-04-14 21:21] LABS: Urine RBC <5 /HPF (NONE SEEN)
--- NOTE | 2021-04-14 21:27 | ER ---
Nurse's Notes [facility] Name: Tg Quarles Age: 41 yrs Sex: Female : 1980 Arrival Date: 04/14/2021 Time: 19:53 Bed 10 Private MD: Diagnosis: UTI/ Urinary tract infection, site not specified Presentation: 04/14 19:57 Chief complaint: Patient states: Burning when urinating and frequency X 1 day. ld1 Coronavirus screen: At this time, the client does not indicate any symptoms associated with coronavirus-19. Ebola Screen: No symptoms or risks identified at this time. Initial Sepsis Screen: Does the patient meet any 2 criteria? No. Patient's initial sepsis screen is negative. Does the patient have a suspected source of infection? No. Patient's initial sepsis screen is negative. Risk Assessment: Do you want to hurt yourself or someone else? Patient reports no desire to harm self or others. Onset of symptoms was April 14, 2021. 19:57 Method Of Arrival: Ambulatory ld1 19:57 Acuity: JULIENNE 4 ld1 Triage Assessment: 19:58 General: Appears in no apparent distress. comfortable, Behavior is calm, cooperative, ld1 appropriate for age. Pain: Complains of pain in right low back and suprapubic area Pain does not radiate. Pain currently is 5 out of 10 on a pain scale. Quality of pain is described as stabbing, Pain began gradually, Is continuous. EENT: No signs and/or symptoms were reported regarding the EENT system. Neuro: Level of Consciousness is awake, alert, obeys commands, Oriented to person, place, time, situation, Appropriate for age. Cardiovascular: Capillary refill < 3 seconds Patient's skin is warm and dry. Respiratory: Airway is patent Respiratory effort is even, unlabored, Respiratory pattern is regular, symmetrical. GI: Abdomen is round non-distended. : Reports burning with urination, pain with urination, urgency, urinary frequency. Derm: No signs and/or symptoms reported regarding the dermatologic system. Musculoskeletal: No signs and/or symptoms reported regarding the musculoskeletal system. 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 - Social history:: Smoking status: Patient reports the use of cigarette tobacco products, smokes one-half pack cigarettes per day, Patient/guardian denies using alcohol, street drugs. Screenin:41 Abuse screen: Denies threats or abuse. Denies injuries from another. Nutritional lp1 screening: No deficits noted. Tuberculosis screening: No symptoms or risk factors identified. Fall Risk None identified. Vital Signs: 19:57 BP 156 / 89; Pulse 126; Resp 19; Temp 97.1(TE); Pulse Ox 100% ; Weight 99.79 kg; Height ld1 6 ft. 2 in. (187.96 cm); Pain 5/10; 21:05 BP 127 / 66; Pulse 104; Resp 18; Pulse Ox 99% on R/A; ld1 19:57 Body Mass Index 28.25 (99.79 kg, 187.96 cm) ld1 ED Course: 19:53 Patient arrived in ED. bp1 19:54 Brielle Dhillon FNP-C is [facility]. kb 19:54 Miguel Ángel Marks MD is Attending Physician. kb 19:58 Triage completed. ld1 19:58 Arm band placed on left wrist. ld1 20:13 Urine Microscopic Only Sent. ld1 21:41 Patient has correct armband on for positive identification. lp1 21:41 No provider procedures requiring assistance completed. Patient did not have IV access lp1 during this emergency room visit. Administered Medications: 21:41 Drug: Augmentin (Amoxicillin-Clavulanate) 875 mg Route: PO; lp1 21:41 Follow up: Response: Medication administered at discharge. lp1 Outcome: 21:27 Discharge ordered by . kb 21:41 Discharged to home ambulatory. lp1 21:41 Condition: good 21:41 Discharge instructions given to patient, Instructed on discharge instructions, follow up and referral plans. medication usage, Demonstrated understanding of instructions, follow-up care, medications, Prescriptions given X 1. 21:41 Patient left the ED. lp1 Addendum: 04/20/2021 12:17 Addendum: Culture Results: Positive urine culture. Phone call Attempt #1 Patient stated s s that she is feeling much better. S/S have improved and plans to follow up with PCP next week. Signatures: Brielle Dhillon, KEE-Alen SWEET-Anna Malik RN RN ss Ada Jay, RN RN lp1 Nevin Young Lauren, RN RN ld1
--- NOTE | 2021-04-14 21:27 | EDPHYS ---
Physician Documentation [facility] Name: Tg Quarles Age: 41 yrs Sex: Female : 1980 Arrival Date: 04/14/2021 Time: 19:53 Bed 10 Private MD: ED Physician Miguel Ángel Marks HPI: 04/14 21:32 This 41 yrs old Female presents to ER via Ambulatory with complaints of Pain With kb Urination, Urinary Frequency, Low Back Pain. 21:32 The patient presents with urinary symptoms, dysuria, frequency. Onset: The kb symptoms/episode began/occurred today. Modifying factors: The symptoms are alleviated by nothing, the symptoms are aggravated by urinating. Associated signs and symptoms: Pertinent positives: dysuria, urinary frequency, Pertinent negatives: fever. Severity of symptoms: At their worst the symptoms were moderate, in the emergency department the symptoms are unchanged. The patient has experienced similar episodes in the past. The patient has not recently seen a physician. Pt reports frequency and dysuria that started today. States "I have a history of UTIs and it feels like one.". 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 - Social history:: Smoking status: Patient reports the use of cigarette tobacco products, smokes one-half pack cigarettes per day, Patient/guardian denies using alcohol, street drugs. ROS: 21:31 Constitutional: Negative for fever, chills, and weight loss. kb 21:31 : Positive for urinary frequency, small amounts, burning with urination. 21:31 All other systems are negative. Exam: 21:31 Constitutional: This is a well developed, well nourished patient who is awake, alert, kb and in no acute distress. Head/Face: Normocephalic, atraumatic. ENT: Moist Mucous membranes Respiratory: Respirations even and unlabored. No increased work of breathing, no retractions or nasal flaring. Abdomen/GI: Soft, non-tender. No distention Skin: Warm, dry with normal turgor. Normal color. MS/ Extremity: Pulses equal, no cyanosis. Neurovascular intact. Full, normal range of motion. Neuro: Awake and alert, GCS 15, oriented to person, place, time, and situation. Moves all extremities. Normal gait. Psych: Awake, alert, with orientation to person, place and time. Behavior, mood, and affect are within normal limits. Vital Signs: 19:57 BP 156 / 89; Pulse 126; Resp 19; Temp 97.1(TE); Pulse Ox 100% ; Weight 99.79 kg; Height ld1 6 ft. 2 in. (187.96 cm); Pain 5/10; 21:05 BP 127 / 66; Pulse 104; Resp 18; Pulse Ox 99% on R/A; ld1 19:57 Body Mass Index 28.25 (99.79 kg, 187.96 cm) ld1 MDM: 19:58 Patient medically screened. kb 21:31 Data reviewed: vital signs, nurses notes. Data interpreted: Pulse oximetry: on room air kb is 99 %. Interpretation: normal. Counseling: I had a detailed discussion with the patient and/or guardian regarding: the historical points, exam findings, and any diagnostic results supporting the discharge/admit diagnosis, lab results, the need for outpatient follow up, a family practitioner, to return to the emergency department if symptoms worsen or persist or if there are any questions or concerns that arise at home. 04/14 19:54 Order name: Urine Microscopic Only; Complete Time: 21:26 kb 04/14 20:12 Order name: Urine Dipstick-Ancillary; Complete Time: 20:17 EDMS 04/14 20:14 Order name: Urine --Ancillary (enter results) cs9 04/14 20:15 Order name: Urine --Ancillary; Complete Time: 21:00 EDMS 04/14 21:23 Order name: Urine Culture EDNC 04/14 19:54 Order name: Urine Dipstick-Ancillary (obtain specimen); Complete Time: 20:12 kb 04/14 19:54 Order name: Urine Test (obtain specimen); Complete Time: 20:12 kb 04/14 21:00 Order name: Vital Signs; Complete Time: 21:05 kb Administered Medications: 21:41 Drug: Augmentin (Amoxicillin-Clavulanate) 875 mg Route: PO; lp1 21:41 Follow up: Response: Medication administered at discharge. lp1 Disposition: 23:24 Co-signature as Attending Physician, Miguel Ángel Marks MD. [facility] Disposition Summary: 04/14/21 21:27 Discharge Ordered Location: Home kb Condition: Stable kb Diagnosis - UTI/ Urinary tract infection, site not specified kb Followup: kb - With: Emergency Department - When: As needed - Reason: Worsening of condition Followup: kb - With: Private Physician - When: 2 - 3 days - Reason: Recheck today's complaints, Continuance of care, Re-evaluation by your physician Discharge Instructions: - Discharge Summary Sheet kb - Urinary Tract Infection, Adult, Mxqb-[id number]-Iibr kb Forms: - Medication Reconciliation Form kb - Thank You Letter kb - Antibiotic Education kb - Prescription Opioid Use kb Prescriptions: - Augmentin 875-125 mg Oral Tablet - take 1 tablet by ORAL route every 12 hours for 10 days; 20 tablet; Refills: 0, kb Product Selection Permitted Signatures: Dispatcher [employer] Brielle Montes, KEE-Alen SWEET-Ada Ramsey, RN RN 1 Miguel Ángel Marks MD MD 7 Charlene Nascimento, RN RN ld1
[2021-04-14] MEDS ORDERED: AMOX/K CLAV 875 MG TAB ONE (21:34)
[2021-04-14 21:49] VITALS: TEMP 97.1
[2021-04-14 21:50] VITALS: BP 127/66; O2SAT 99
== END 2021-04-14 21:41 | disposition home or self-care (01) ==
LOC: ER 19:51
DX: N39.0 Urinary tract infection, site not specified (principal); I10 Essential (primary) hypertension; F17.210 Nicotine dependence, cigarettes, uncomplicated; Z88.2 Allergy status to sulfonamides; Z88.5 Allergy status to narcotic agent
CPT/HCPCS: 81003; 81015; 81025; 87077; 87086; 87088; 87186; 99283

== ENCOUNTER 2021-06-12 22:19 | Emergency (ER) | payer OTHER ==
--- OUTSIDE RECORDS SUMMARY | 2021-06-12 22:22 | XMS REPORT | Continuity of Care Document ---
:1980 Author Organization [facility] t Address [address] [place] [address] Care Team Providers Name Role Phone BELTRAN, Y Primary Care Physician Unavailable Carlos FROST Attending Clinician Unavailable Candis CHAKRABORTY Attending Clinician Unavailable Candis Chakraborty MD Attending Clinician Alexandra SWEET Attending Clinician DR ARNOLDO Attending Clinician Unavailable PERCY Attending Clinician Unavailable DR ARNOLDO Admitting Clinician Unavailable PERCY Admitting Clinician Unavailable Payers Payer Name Policy Type Policy Number Effective Date Expiration Date [facility] [id number] 2017 00:00:00 Problems Condition Condition Condition Status Onset Resolution Last Treating Co mments Source Name Details Category Date Date Treatment Clinician Date History of History of Disease Active 2020-0 U nivers trichomona trichomona 8-05 it y of l l 00:00: [place] vaginitis vaginitis [address] [place] [address] Trichomona Trichomona Disease Active 2019-0 U nivers l l 7-17 ity of vulvovagin [place] [facility] BV BV Disease Active 2019-0 Univers (bacterial (bacterial 7-17 it y of vaginosis) vaginosis[place] [facility] [place] Obesity Obesity Disease Active 2019-0 Univers (BMI (BMI 7-08 ity of 30-39.9) 30-39.9) 00:00: [place] [address] Medical Branch Skin yeast Skin yeast Disease Active U nivers infection infection 7-18 ity of 00:00: [place] [address] Medical Branch Screen for Screen for Disease Active U nivers STD STD 7-18 ity of (sexually (sexually [place] transmit[place] transmitte 00 Me dical d disease) d disease) Br anch Depo Depo Disease Active Univers contracept contracept 7-18 it y of ion ion 00:00: [place] [address] Medical Branch Pain Pain Disease Active Univers pelvic pelvic 2-15 ity of 00:00: [place] [address] Medical Branch Surveillan Surveillan Disease Active U nivers ce of ce of 2-15 [place]y of previously [place] prescribed prescribed 00 [place] dical contracept contracept Br anch sosa method sosa method Irregular Irregular Disease Active Uni vers menstrual menstrual 2-15 ity of cycle cycle 00:00: [address] Branch Well woman Well woman Disease Active U nivers exam exam 2-15 ity of without without 00:00: [place] gynecologi gynecologi 00 Me dical cornelius exam cornelius exam Branch Need for Need for Disease Active Unive rs prophylact prophylact 2-15 it y of ic ic 00:00: [place] vaccinatio vaccinatio 00 Me dical n with n with Branch combined combined diphtheria diphtheria -tetanus-p -tetanus-p ertussis ertussis (DTP) (DTP) vaccine vaccine BMI BMI Disease Active Univers 34.0-34.9, 34.0-34.9, 2-15 it y of adult adult 00:00: [place] [address] Medical Branch Allergies, Adverse Reactions, Alerts Allergy Allergy Status Severity Reaction(s) Onset Inactive Treating Comm ents Source Name Type Date Date Clinician TRAMADOL DRUG Active N/V Univers INGREDI 2-17 ity of 00:00: [place] [address] Medical Branch Tramadol Propensi Active Nausea Univer s ty to and/or 2-17 ity of adverse Vomiting 00:00: [place] reaction 00 Medical s Branch SULFA Drug Active Hives Univers (SULFONA Class 6-13 ity of MIDE 00:00: [place] ANTIBIOT 00 Medical ICS) Branch Sulfa Propensi Active Hives Univers (Sulfona ty to 6-13 ity of mide adverse 00:00: [place] Antibiot reaction 00 Medica l ics) s Branch Social History Social Habit Start Date Stop Date Quantity Comments Source History [facility] University o f Alcohol Comment [place] [facility] ical Branch Exposure to Not sure University of SARS-CoV-2 [place] [facility] (event) Branch History of Cigarette Smoker Universi ty of tobacco use [facility] [place] Alcohol intake 2021-04-18 2021-04-18 Current drinker Unive rsity of 00:00:00 00:00:00 of alcohol [place] Medical (finding) Branch History [facility] 2019-12-21 2019-12-21 2 University o f Alcohol Frequency 00:00:00 00:00:00 [place] M edical Branch History [facility] 2019-12-21 2019-12-21 99 University o f Alcohol Std 00:00:00 00:00:00 [place] Medical Drinks Branch History [facility] 2019-12-21 2019-12-21 99 University o f Alcohol Binge 00:00:00 00:00:00 [place] Medic al Branch Tobacco use and 2018-11-22 2018-11-22 Never used Universit y of exposure 00:00:00 00:00:00 [facility] [place] Sex Ass[birth year] Universit y of 00:00:00 00:00:00 [facility] [place] Smoking Status Start Date Stop Date Source Current some day smoker 2018-11-22 00:00:00 [facility] [place] Medications Ordered Filled Start Stop Current Ordering Indication Dosage Frequency Signature Comments Components Source Medication Medication Date Date Medication? Clinician (SIG) Name Name Scott 2020-05 Yes [id number] 1{tbl} Take 1 Univers ne 2-02 tablet by ity of Acet-Ethiny 00:00: mouth [place] l Est 00 daily. Medical (LOESTRIN Branch 1.5, 21,) 1.5-30 mg-mcg per tablet METOPROLOL Yes [id number] TAKE 1/2 Univers TARTRATE 25 7-05 TABLET BY ity of mg tablet 00:00: MOUTH [place] 00 EVERY DAY Medical Branch Nitrofurant Yes [id number] 100mg Take 1 Univers oin&Nit. 3-22 capsule by ity o f Macrocryst 00:00: [place] (MACROBID) 00 (two) Medical 100 mg times Branch capsule daily. naproxen Yes [id number] 550mg Take 1 U nivers sodium 550 3-22 tablet by ity of mg tablet 00:00: mouth 2 [place] 00 (two) Medical times Branch daily with meals. metaxalone Yes [id number] 800mg Take 1 Univers (SKELAXIN) 3-22 tablet by ity of 800 mg 00:00: mouth 3 [place] tablet 00 (three) Medical times Branch daily. ferrous Yes [id number] 324mg Take 1 Un bruce sulfate 324 1-26 tablet by ity of mg (65 mg 00:00: mouth 2 [place] iron) EC 00 (two) Medical tablet times Branch daily with meals. omeprazole Yes Univers 40 mg -02 ity of capsule 00:00: [address] Immunizations Ordered Filled Immunization Date Status Comments [facility] e Immunization Name Name Influenza Virus 2020-05-30 Completed Universit y of Vaccine Quad .5 mL 00:00:00 [facility] IM 6+ MO Branch Influenza Virus 2018-04-19 Completed Universit y of Vaccine Quad .5 mL 00:00:00 [facility] IM 6+ MO Branch TDAP 2015-07-02 Completed [facility] 00:00:00 [facility] [place] Td 1996-12-28 Completed [facility] 00:00:00 [facility] [place] Vital Signs Vital Name Observation Time Observation Value Comments Source Systolic blood 2021-04-18 17:16:00 114 mm[Hg] [facility] [place] Diastolic blood 2021-04-18 17:16:00 78 mm[Hg] [facility] Heart rate 2021-04-18 17:16:00 89 /min [facility] Body temperature 2021-04-18 17:16:00 36.39 Alysa [facility] Respiratory rate 2021-04-18 17:16:00 18 /min [facility] Body height 2021-04-18 17:16:[address] [facility] Body weight 2021-04-18 17:16:[address] [facility] BMI 2021-04-18 17:16:00 29.31 kg/m2 [facility] Oxygen saturation in 2021-04-18 17:16:00 99 /min University of Arterial blood by [place] [facility] Pulse oximetry Branch Procedures Procedure Date / Time Performed Performing Clinician Sour e POCT TEST 2021-04-18 00:00:00 [facility] Start End Encounter Admission Attending Care Care Encounter Source Date/Time Date/Time Type Type Clinicians Facility Department ID 2021-05-28 2021-05-28 Outpatient R SANTOSH, [facility] [id number] Univers 15:30:00 15:30:00 ISHA [id number] [facility] 2021-05-28 2021-05-28 Outpatient R SANTOSH, [facility] [id number] Univers 15:30:00 15:30:00 ISHA [facility] 2021-05-21 2021-05-21 Outpatient R MELIZA [facility] [id number] Univers 11:00:00 11:00:00 , SUSAN villanueva y [facility] 2021-05-17 2021-05-17 Outpatient PARADISEUM, [facility] [id number] Univers 15:00:00 15:00:00 ISHA [id number] [facility] 2021-04-18 2021-04-18 Outpatient R MELIZA [facility] [id number] Univers 11:15:00 11:57:00 , SUSAN villanueva y [facility] 2021-04-18 2021-04-18 Office Meliza GLORIA [id number] Univers 11:09:27 11:57:00 Visit , Susan PEDIATRIC [id number] ity of [place] 4[place]2.686 [place] [id number] [facility] PRIMARY [facility] Branch CARE CLINIC 2020-11-29 2020-11-29 Refill Meliza Gloria [id number] 00:00:00 00:00:00 , Susan Pediatric [id number] M s and [id number] Adult [id number] [place] [address] Care Clinic 2020-11-162020-11-16 Refill Meliza Gloria [id number] 00:00:00 00:00:00 , Susan Pediatric [id number] M s and 4.2.7.2.686 Adult [id number] [facility] 2020-11-15 2020-11-15 Office Faizan Morris [id number] 11:30:23 12:00:23 Visit [facility] [id number] s and [id number] Adult [id number] [facility] 2020-11-13 2020-11-13 Patient Meliza Gloria [id number] 00:00:00 00:00:00 Secure Msg , Susan Pediatric [id number] M s and 4.2.7.2.686 Adult [id number] [address] 2018-10-15 2018-10-15 Emergency E MCLAUGHLIN, [facility] [id number] [place] 02:31:00 03:40:00 [facility] 2018-10-01 2018-10-01 Outpatient [facility] [id number] [place] 08:05:00 23:59:00 [facility] Results Test Description Test Time Test Comments Results Result Comments Source POCT TEST 2021-04-18 17:51:00 Test Item Value Reference Range Interpretation Comme nts POCT PREG (test code = 1605) Negative On board controls acceptable with C Line (test code = 3574) Yes POCT PREG LOT # (test code = 3575) POCT PREG TEST DATE (test code = 3576) [facility] [id number] 08:51:45EXAM: CT ABDOMEN AND PELVIS WITH CONTRAST.LOCATION: D4.HISTORY: [id number]: Disorder of [id number]: Benign neoplasm of colon.COMPARISON:None.TECHNIQUE:CT abdomen and pelvis [...]
--- NOTE | 2021-06-12 22:44 | EDPHYS ---
Physician Documentation [facility] Name: Tg Quarles Age: 41 yrs Sex: Female : 1980 Arrival Date: 06/12/2021 Time: : Bed Waiting Private MD: ED Physician Arnold Erickson HPI: 06/12 22:36 This 41 yrs old Female presents to ER via Ambulatory with complaints of PAIN IN neck. rn 22:36 The patient or guardian complains of an injury. The symptoms are located on the rn Cervical spine. Onset: The symptoms/episode began/occurred 1 year(s) ago. Context: The problem was sustained outdoors, The neck injury/problem resulted from playing sports. Associated signs and symptoms: Pertinent negatives: fever, headache, bladder incontinence, bowel incontinence, nausea, numbness, tingling, vomiting, weakness. The pain does not radiate. Modifying factors: The symptoms are alleviated by OTC meds, remaining still, the symptoms are aggravated by movement, pressure. Severity of symptoms: At their worst the symptoms were moderate, in the emergency department the symptoms have improved. The patient has experienced similar episodes in the past, chronically. The patient has not recently seen a physician. Patient denies any new injuries to the neck. Reports did somersault 1 year ago and injured neck. Was never seen for this. No new symptoms. Reports isolated pain to the neck that still causes some aching here and there. No fever. No weakness/numbness or radiation. Has a back doctor just has not followed up. Came tonight because wanted to get it checked. 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 - Social history:: Smoking status: Patient reports the use of cigarette tobacco products, denies chronic smoking, but will smoke occasionally, Patient/guardian denies using alcohol. - Family history:: not pertinent. - Hospitalizations: : No recent hospitalization is reported. ROS: 22:36 Constitutional: Negative for fever, chills, and weight loss, Eyes: Negative for injury, rn pain, redness, and discharge, Neck: Negative for swelling, Cardiovascular: Negative for chest pain, palpitations, and edema, Respiratory: Negative for shortness of breath, cough, wheezing, and pleuritic chest pain, MS/Extremity: Negative for injury and deformity, Neuro: Negative for headache, weakness, numbness, tingling, and seizure. Exam: 22:36 Constitutional: This is a well developed, well nourished patient who is awake, alert, rn and in no acute distress. Head/Face: Normocephalic, atraumatic. Neck: Trachea midline, no masses palpated, and no cervical lymphadenopathy. Supple, full range of motion without nuchal rigidity, or vertebral point tenderness. No Meningismus. Neuro: Awake and alert, GCS 15, oriented to person, place, time, and situation. Cranial nerves II-XII grossly intact. Motor strength 5/5 in all extremities. Sensory grossly intact. Cerebellar exam normal. Normal gait. Vital Signs: 22:27 BP 147 / 88; Pulse 103; Resp 18; Temp 98; Pulse Ox 98% ; Weight 103.42 kg; Height 6 ft. al4 2 in. (187.96 cm); Pain 8/10; 22:27 Body Mass Index 29.27 (103.42 kg, 187.96 cm) al4 MDM: 22:31 Patient medically screened. rn 22:36 Differential diagnosis: arthritis, Cervical Discogenic Pain Cervical Raiculopathy rn Cervical Spondylosis cervical strain, Spondylosis torticollis. Data reviewed: vital signs, nurses notes, and as a result, I will discharge patient. Counseling: I had a detailed discussion with the patient and/or guardian regarding: the historical points, exam findings, and any diagnostic results supporting the discharge/admit diagnosis, the need for outpatient follow up, to return to the emergency department if symptoms worsen or persist or if there are any questions or concerns that arise at home. Special discussion: I discussed with the patient/guardian in detail that at this point there is no indication for admission to the hospital. It is understood, however, that if the symptoms persist or worsen the patient needs to return immediately for re-evaluation. Based on the history and exam findings, there is no indication for further emergent testing or inpatient evaluation. I discussed with the patient/guardian the need to see the back specialist for further evaluation of the symptoms. ED course: Patient with 1-year-old injury, no neurological complaints, no new injury. No indication for emergent imaging. Has a back specialist she sees already. Recommend follow-up with back specialist for further recommendations and possible imaging.. 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
--- NOTE | 2021-06-12 22:44 | ER ---
Nurse's Notes [facility] Name: Tg Quarles Age: 41 yrs Sex: Female : 1980 Arrival Date: 06/12/2021 Time: 22:26 Bed Waiting Private MD: Diagnosis: Strain of muscle, fascia and tendon at neck level-1 year old injury Presentation: 06/12 22:27 Chief complaint: Patient states: "I injured myself last year and never went to the al4 doctor." Patient reports neck/upper spine injury from doing summer salts. Coronavirus screen: Vaccine status: Patient reports receiving the 2nd dose of the covid vaccine. Moderna. Ebola Screen: No symptoms or risks identified at this time. Initial Sepsis Screen: Does the patient meet any 2 criteria? No. Patient's initial sepsis screen is negative. Does the patient have a suspected source of infection? No. Patient's initial sepsis screen is negative. Risk Assessment: Do you want to hurt yourself or someone else? Patient reports no desire to harm self or others. Onset of symptoms was June 12, 2021. 22:27 Method Of Arrival: Ambulatory al4 22:27 Acuity: JULIENNE 4 al4 Triage Assessment: 22:32 General: Appears in no apparent distress. comfortable, Behavior is calm, cooperative, al4 appropriate for age. Pain: Complains of pain in back of neck and posterior chest. Neuro: Level of Consciousness is awake, alert, obeys commands, Oriented to person, place, time, situation. Cardiovascular: Capillary refill < 3 seconds Patient's skin is warm and dry. Respiratory: Airway is patent Respiratory effort is even, unlabored, Respiratory pattern is regular, symmetrical. Musculoskeletal: Reports pain in back of neck Denies weakness and numbness. 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 - Social history:: Smoking status: Patient reports the use of cigarette tobacco products, denies chronic smoking, but will smoke occasionally, Patient/guardian denies using alcohol. - Family history:: not pertinent. - Hospitalizations: : No recent hospitalization is reported. Screenin:36 Abuse screen: Denies threats or abuse. Nutritional screening: No deficits noted. al4 Tuberculosis screening: No symptoms or risk factors identified. Fall Risk No fall in past 12 months (0 pts). No IV (0 pts). Ambulatory Aid- None/Bed Rest/Nurse Assist (0 pts). Gait- Normal/Bed Rest/Wheelchair (0 pts) Mental Status- Oriented to own ability (0 pts). Total Peoples Fall Scale indicates No Risk (0-24 pts). Assessment: 10:30 Reassessment: DAVID Erickson in triage assessing patient. al4 22:38 Reassessment: See triage assessment. al4 Vital Signs: 22:27 BP 147 / 88; Pulse 103; Resp 18; Temp 98; Pulse Ox 98% ; Weight 103.42 kg; Height 6 ft. al4 2 in. (187.96 cm); Pain 8/10; 22:27 Body Mass Index 29.27 (103.42 kg, 187.96 cm) al4 ED Course: 22:26 Patient arrived in ED. es 22:30 Triage completed. al4 22:31 Arnold Erickson MD is Attending Physician. rn 22:32 Arm band placed on right wrist. al4 22:36 Patient has correct armband on for positive identification. al4 22:36 No provider procedures requiring assistance completed. Patient did not have IV access al4 during this emergency room visit. Administered Medications: No medications were administered Outcome: 22:43 Discharge ordered by . rn 22:47 Discharged to home ambulatory. al4 22:47 Condition: stable 22:47 Discharge instructions given to patient, Instructed on discharge instructions, follow up and referral plans. Demonstrated understanding of instructions, follow-up care. 22:47 Patient left the ED. al4 Signatures: Ana Cody Roman, MD MD rn Ledbetter, Alexis al4 Corrections: (The following items were deleted from the chart) 22:35 22:32 Musculoskeletal: Reports pain in back of neck al4 al4
[2021-06-12 23:08] VITALS: BP 147/88; TEMP 98; O2SAT 98
== END 2021-06-12 22:47 | disposition home or self-care (01) ==
LOC: ER 22:19
DX: S16.1XXS Strain of muscle, fascia and tendon at neck level, sequela (principal); I10 Essential (primary) hypertension; F17.210 Nicotine dependence, cigarettes, uncomplicated; Z88.2 Allergy status to sulfonamides; Z88.5 Allergy status to narcotic agent
CPT/HCPCS: 99281

== ENCOUNTER 2021-06-26 09:55 | Emergency (ER) | payer OTHER ==
--- OUTSIDE RECORDS SUMMARY | 2021-06-26 09:59 | XMS REPORT | Continuity of Care Document ---
:1980 Author Organization [facility] t Address [address] [place] [address] Care Team Providers Name Role Phone BELTRAN, Y Primary Care Physician Unavailable LENIN COHEN Attending Clinician Unavailable Carlos FROST Attending Clinician Unavailable Candis HAIDER Attending Clinician Unavailable Candis Haider MD Attending Clinician Alexandra SWEET Attending Clinician DR ARNOLDO Attending Clinician Unavailable PERCY Attending Clinician Unavailable DR ARNOLDO Admitting Clinician Unavailable PRECY Admitting Clinician Unavailable Payers Payer Name Policy Type Policy Number Effective Date Expiration Date Preston wheatley [facility] [id number] 2017 00:00:00 Problems Condition Condition Condition Status Onset Resolution Last Treating Co mments Source Name Details Category Date Date Treatment Clinician Date History of History of Disease Active 2019- U nivers trichomona trichomona 8-05 it y of l l 00:00: [place] vaginitis vaginitis 00 [facility] Trichomona Trichomona Disease Active 2019- U nivers l l 7-17 ity of vulvovagin [place] it[place] it[place] 00 Medical Branch BV BV Disease Active Univers (bacterial (bacterial 7-17 it y of vaginosis) vaginosis[place] Obesity Obesity Disease Active 2019- Univers (BMI (BMI 7-08 ity of 30-39.9) 30-39.9) 00:00: [place] 00 Medical Branch Skin yeast Skin yeast Disease Active U nivers infection infection 7-18 ity of 00:00: [place] [address] Medical Branch Screen for Screen for Disease Active U nivers STD STD 7-18 ity of (sexually ([place] transmit[place] transmitte 00 Me dical d disease) d disease) Br anch Depo Depo Disease Active Univers contracept contracept 7-18 it y of ion ion 00:00: [place] [address] Medical Branch Pain Pain Disease Active Univers pelvic pelvic 2-15 ity of 00:00: [place] [address] Medical Branch Surveillan Surveillan Disease Active U nivers ce of ce of 2-15 [place]y of [place] prescribed prescribed 00 [place] dical contracept contracept Br anch sosa method sosa method Irregular Irregular Disease Active Uni vers menstrual menstrual 2-15 ity of cycle cycle 00:00: [place] [address] Medical Branch Well woman Well woman Disease Active U nivers exam exam 2-15 ity of without without 00:00: [place] gynecologi gynecologi 00 Me dical cornelius exam cornelius exam Branch Need for Need for Disease Active Unive rs prophylact prophylact 2-15 it y of ic ic 00:00: [place] vaccinatio vaccinatio 00 Me dical n with n with Branch combined combined diphtheria diphtheria -tetanus-p -tetanus-p ertussis ertussis (DTP) (DTP) vaccine vaccine BMI BMI Disease Active Univers 34.0-34.9, 34.0-34.9, 2-15 it y of adult adult 00:00: [place] [address] Medical Branch Allergies, Adverse Reactions, Alerts Allergy Allergy Status Severity Reaction(s) Onset Inactive Treating Comm ents Source Name Type Date Date Clinician TRAMADOL DRUG Active N/V Univers INGREDI 2-17 ity of 00:00: [place] [address] Medical Branch Tramadol Propensi Active Nausea Univer [...] Date Stop Date Quantity Comments Source History [facility] University o f Alcohol Comment [place] [facility] ical Branch Exposure to Not sure University of SARS-CoV-2 [place] Medical (event) Branch History of Cigarette Smoker Universi ty of tobacco use [facility] Alcohol intake 2021-04-18 2021-04-18 Current drinker Univ rsity of 00:00:00 00:00:00 of alcohol [place] Medical (finding) Branch History [facility] 2019-12-21 2019-12-21 2 University o f Alcohol Frequency 00:00:00 00:00:00 [place] M edical Branch History [facility] 2019-12-21 2019-12-21 99 University o f Alcohol Std 00:00:00 00:00:00 [place] Medical Drinks Branch History [facility] 2019-12-21 2019-12-21 99 University o f Alcohol Binge 00:00:00 00:00:00 [place] Medic al Branch Tobacco use and 2018-11-22 2018-11-22 Never used Universit y of exposure 00:00:00 00:00:00 [facility] Sex Ass[birth year] At [birth year] Universit y of 00:00:00 00:00:00 [facility] Smoking Status Start Date Stop Date Source Current some day smoker 2018-11-22 00:00:00 [facility] [place] [facility] Medications Ordered Filled Start Stop Current Ordering Indication Dosage Frequency Signature Comments Components Source Medication Medication Date Date Medication? Clinician (SIG) Name Name Abimbolaarnaldo 2020-05 Yes [id number] 1{tbl} Take 1 Univers ne 2-02 tablet by ity of Acet-Ethiny 00:00: mouth [place] l Est 00 daily. Medical (LOESTRIN Branch 1.530, 21,) 1.5-30 mg-mcg per tablet METOPROLOL Yes [id number] TAKE 1/2 Univers TARTRATE 25 7-05 TABLET BY ity of mg tablet 00:00: MOUTH [place] 00 EVERY DAY Medical Branch Nitrofurant Yes [id number] 100mg Take 1 Univers oin&Nit. 3-22 capsule by ity o f Macrocryst 00:00[place] (MACROBID) 00 (two) Medical 100 mg times Branch capsule daily. naproxen Yes [id number] 550mg Take 1 U nivers sodium 550 3-22 tablet by ity of mg tablet 00:00: mouth 2 [place] 00 (two) Medical times Branch daily with meals. metaxalone Yes [id number] 800mg Take 1 Univers (SKELAXIN) 3-22 tablet by ity of 800 mg 00:00: mouth 3 [place] tablet 00 (three) Medical times Branch daily. ferrous Yes [id number] 324mg Take 1 Un bruce sulfate 324 1-26 tablet by ity of mg (65 mg 00:00: mouth 2 [place] iron) EC 00 (two) Medical tablet times Branch daily with meals. omeprazole Yes Univers 40 mg -02 ity of capsule 00:00: [address] Immunizations Ordered Filled Immunization Date Status Comments [facility] e Immunization Name Name Influenza Virus 2020-05-30 Completed Universit y of Vaccine Quad .5 mL 00:00:[address] [facility] IM 6+ MO Branch Influenza Virus 2018-04-19 Completed Universit y of Vaccine Quad .5 mL 00:00:00 [facility] 6+ MO Branch TDAP 2015-07-02 Completed [facility] 00:00:00 [facility] Td 1996-12-28 Completed [facility] 00:00:00 [facility] Vital Signs Vital Name Observation Time Observation Value Comments Source Systolic blood 2021-04-18 17:16:00 114 mm[Hg] Univer sity of pressure [facility] Diastolic blood 2021-04-18 17:16:00 78 mm[Hg] Unive rsity of [facility] Heart rate 2021-04-18 17:16:00 89 /min [facility] Body temperature 2021-04-18 17:16:00 36.39 Alysa [facility] Respiratory rate 2021-04-18 17:16:00 18 /min [facility] Body height 2021-04-18 17:16:00 188 cm [facility] Body weight 2021-04-18 17:16:00 103.534 kg [facility] BMI 2021-04-18 17:16:00 29.31 kg/m2 [facility] [place] [facility] Oxygen saturation in 2021-04-18 17:16:00 99 /min University Arterial blood by [facility] Pulse oximetry Branch Procedures Procedure Date / Time Performed Performing Clinician Sour e POCT TEST 2021-04-18 00:00:00 Susan Haider [facility] Encounters Start End Encounter Admission Attending Care Care Encounter Source Date/Time Date/Time Type Type Clinicians Facility Department ID 2021-07-16 2021-07-16 Outpatient NOEL [facility] [id number] Univers 15:50:00 15:50:00 ALAN [id number] [facility] 2021-05-28 2021-05-28 Outpatient R SANTOSH, [facility] [id number] Univers 15:30:00 15:30:00 ISHA [id number] [facility] 2021-05-28 2021-05-28 Outpatient R SANTOSH [facility] [id number] Univers 15:30:00 15:30:00 ISHA [facility] 2021-05-21 2021-05-21 Outpatient R MELIZA [facility] [id number] Univers 11:00:00 11:00:00 , SUSAN villanueva y [facility] 2021-05-17 2021-05-17 Outpatient PARADISE, [facility] [id number] Univers 15:00:00 15:00:00 [facility] [id number] 2021-04-[facility] 2021-04-18 Outpatient R MELIZA [facility] [id number] Univers 11:15:00 11:57:00 , SUSAN villanueva y of [place] [facility] 2021-04-18 2021-04-18 Office Meliza GLORIA [id number] Univers 11:09:27 11:57:00 Visit , Susan PEDIATRIC [id number] ity of [place] [id number] [facility] PRIMARY [facility] Branch CARE CLINIC 2020-11-29 2020-11-29 Refill Meliza Gloria [id number] 00:00:00 00:00:00 , Susan Pediatric [id number] M s and [id number] Adult [id number] Primary [facility] 2020-11-16 2020-11-16 Refill Meliza Gloria [id number] 00:00:00 00:00:00 , Susan Pediatric [id number] M s and [id number] Adult [id number] [facility] 2020-11-15 2020-11-15 Office Faizan Morris [id number] 11:30:23 12:00:23 Visit Arcelia Pediatric [id number] s and 4.2.7.2.686 Adult [id number] [facility] 2020-11-13 2020-11-13 Patient Meliza Gloria [id number] 00:00:00 00:00:00 Secure Msg , Susan Pediatric [id number] M s and 4.2.7.2.686 Adult [id number] Primary [facility] Care [facility] 2018-10-15 2018-10-15 Emergency E MCLAUGHLIN, [facility] [id number] 02:31:00 03:40:00 [facility] 2018-10-01 2018-10-01 [facility] [id number] 08:05:00 23:59:00 [facility] Results Test Description Test Time Test Comments Results Result Comments Source POCT TEST 2021-04-18 17:51:00 Test Item Value Reference Range Interpretation Comme nts POCT PREG (test code = 1605) Negative On board controls acceptable with C Line (test code = 3574) Yes POCT PREG LOT # (test code = 3575) POCT PREG TEST DATE (test code = 3576) [facility] [id number] 08:51:45EXAM: CT ABDOMEN AND PELVIS WITH CONTRAST.LOCATION: D4.HISTORY: [id number]: Disorder of [id number]: Benign neoplasm of colon.COMPARISON:None.TECHNIQUE:CT abdomen and pelvis [...]
[2021-06-26] MEDS ORDERED: DOXYCYCLINE 100 MG CAP PO ONE (10:23)
[2021-06-26] MEDS ORDERED: LIDOCAINE 1% MPF 5 ML VIAL ONE (10:23)
--- NOTE | 2021-06-26 11:00 | EDPHYS ---
Physician Documentation [facility] Name: Tg Quarles Age: 41 yrs Sex: Female : 1980 Arrival Date: 06/26/2021 Time: 09:59 Bed 5 Private MD: NYA Physician Darrian Eason HPI: 06/26 10:33 This 41 yrs old Female presents to ER via Ambulatory with complaints of Boil. kb 10:33 The patient presents with an abscess of the left inner thigh and left gluteal fold. kb Description: draining, erythematous, fluctuant, swollen. Onset: The symptoms/episode began/occurred 2 day(s) ago. Possible cause(s): unknown. Associated signs and symptoms: Pertinent positives: erythema, swelling. Modifying factors: the symptoms are alleviated by nothing, the symptoms are aggravated by squeezing the lesion and expressing the contents, touching. Severity of symptoms: At their worst the symptoms were moderate, in the emergency department the symptoms are unchanged. The patient has not experienced similar symptoms in the past. The patient has not recently seen a physician. 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 - Social history:: Smoking status: Patient reports the use of cigarette tobacco products, denies chronic smoking, but will smoke occasionally. ROS: 10:29 Constitutional: Negative for fever, chills, and weight loss. kb 10:29 Skin: Positive for abscess, of the left gluteal fold and left inner thigh. 10:29 All other systems are negative. Exam: 10:32 Constitutional: This is a well developed, well nourished patient who is awake, alert, kb and in no acute distress. Head/Face: Normocephalic, atraumatic. ENT: Moist Mucous membranes Respiratory: Respirations even and unlabored. No increased work of breathing. Talking in full sentences MS/ Extremity: Pulses equal, no cyanosis. Neurovascular intact. Full, normal range of motion. Neuro: Awake and alert, GCS 15, oriented to person, place, time, and situation. Moves all extremities. Normal gait. Psych: Awake, alert, with orientation to person, place and time. Behavior, mood, and affect are within normal limits. 10:32 Skin: abscess, that is moderate sized, of the left inner thigh and left gluteal fold, with drainage, with fluctuance, with induration. Vital Signs: 10:02 BP 167 / 69; Pulse 93; Resp 17; Temp 97.5; Pulse Ox 100% ; Weight 99.79 kg; Height 6 vg1 ft. 2 in. (187.96 cm); Pain 10/10; 11:20 BP 107 / 42; Pulse 93; Resp 20; Pulse Ox 100% on R/A; ic1 10:02 Body Mass Index 28.25 (99.79 kg, 187.96 cm) vg1 Procedures: 10:59 I \T\ D: Incision and drainage was performed for an abscess of the left left inner thigh kb and left gluteal fold Prepped with Betadine, Anesthetized with 3 ml's 1% Lidocaine. Incised with #11 blade. Drained moderate amount purulent fluid. Dressing: sterile 4x4 gauze, the patient tolerated the procedure well. MDM: 10:06 Patient medically screened. kb 10:29 Data reviewed: vital signs, nurses notes. Data interpreted: Pulse oximetry: on room air kb is 100 %. Interpretation: normal. Counseling: I had a detailed discussion with the patient and/or guardian regarding: the historical points, exam findings, and any diagnostic results supporting the discharge/admit diagnosis, the need for outpatient follow up, a general surgeon, to return to the emergency department if symptoms worsen or persist or if there are any questions or concerns that arise at home. 06/26 10:16 Order name: I\T\D Setup; Complete Time: 10:31 kb Administered Medications: 10:23 Drug: Doxycycline 100 mg Route: PO; ic1 11:12 Drug: Lidocaine (1 %) 1 vials {Note: administered by daly dhillon.} Volume: 5 ml; Route: ic1 Infiltration; Disposition: 12:13 Co-signature as Attending Physician, Darrian Eason MD I agree with the assessment and sina plan of care. Disposition Summary: 06/26/21 10:59 Discharge Ordered Location: Home kb Condition: Stable kb Diagnosis - Cutaneous abscess of buttock kb Followup: kb - With: Emergency Department - When: As needed - Reason: Worsening of condition Followup: kb - With: Private Physician - When: 2 - 3 days - Reason: Recheck today's complaints, Continuance of care, Re-evaluation by your physician Discharge Instructions: - Discharge Summary Sheet kb - Skin Abscess, [id number] kb - Incision and Drainage, Care After kb Forms: - Medication Reconciliation Form kb - Thank You Letter kb - Antibiotic Education kb - Prescription Opioid Use kb Prescriptions: - Doxycycline Hyclate 100 mg Oral Tablet - take 1 tablet by ORAL route every 12 hours; 20 tablet; Refills: 0, Product kb Selection Permitted Signatures: Brielle Dhillon, LUIS ALBERTOC KEE-Darrian Landa MD MD cha Garcia, Victoria, RN RN vg1 Jodi Farrar RN RN ic1 Corrections: (The following items were deleted from the chart) 10:32 10:29 Skin: Positive for abscess, of the left gluteal fold, kb kb
--- NOTE | 2021-06-26 11:00 | ER ---
Nurse's Notes [facility] Name: Tg Quarles Age: 41 yrs Sex: Female : 1980 Arrival Date: 06/26/2021 Time: 09:59 Bed 5 Private MD: Diagnosis: Cutaneous abscess of buttock Presentation: 06/26 10:02 Chief complaint: Patient states: 'boil' on the Left inner buttocks for about 2 days. vg1 States 'its getting bigger'. Coronavirus screen: Vaccine status: Patient reports receiving the 2nd dose of the covid vaccine. Client denies travel out of the [place] in the last 14 days. Ebola Screen: Patient negative for fever greater than or equal to 101.5 degrees Fahrenheit, and additional compatible Ebola Virus Disease symptoms. Initial Sepsis Screen: Does the patient meet any 2 criteria? No. Patient's initial sepsis screen is negative. Does the patient have a suspected source of infection? No. Patient's initial sepsis screen is negative. Risk Assessment: Do you want to hurt yourself or someone else? Patient reports no desire to harm self or others. Onset of symptoms was June 24, 2021. 10:02 Method Of Arrival: Ambulatory vg1 10:02 Acuity: JULIENNE 4 vg1 Triage Assessment: 10:04 General: Appears uncomfortable, Behavior is calm, cooperative. Pain: Complains of pain vg1 in buttocks Pain currently is 10 out of 10 on a pain scale. EMERGENCY DOCTOR: 10:04 [facility] 04/2021 vg1 Historical: - Allergies: 10:04 Sulfa (Sulfonamide Antibiotics); vg1 10:04 tramadol; vg1 - Home Meds: 10:04 Iron CR Oral [Active]; metoprolol tartrate 25 mg Oral tab 0.5 tab once daily [Active]; vg1 Omeprazole Oral [Active]; - PMHx: 10:04 Anemia; GERD; Hypertension; UTI; vg1 - PSHx: 10:04 Cholecystectomy; right shoulder; vg1 - Immunization history:: Client reports receiving the 2nd dose of the Covid vaccine. - Social history:: Smoking status: Patient reports the use of cigarette tobacco products, denies chronic smoking, but will smoke occasionally. Screenin:32 Abuse screen: Denies threats or abuse. Denies injuries from another. Nutritional ic1 screening: No deficits noted. Tuberculosis screening: No symptoms or risk factors identified. Fall Risk None identified. Assessment: 10:32 General: Appears in no apparent distress. comfortable, Behavior is calm, cooperative. ic1 Pain: Complains of pain in Pt has boil noted to her L buttock. No gross drainage noted. Neuro: No deficits noted. Cardiovascular: No deficits noted. Respiratory: No deficits noted. GI: No deficits noted. : No deficits noted. EENT: No deficits noted. Derm: No deficits noted. Derm:. Musculoskeletal: No deficits noted. Vital Signs: 10:02 BP 167 / 69; Pulse 93; Resp 17; Temp 97.5; Pulse Ox 100% ; Weight 99.79 kg; Height 6 vg1 ft. 2 in. (187.96 cm); Pain 10/10; 11:20 BP 107 / 42; Pulse 93; Resp 20; Pulse Ox 100% on R/A; ic1 10:02 Body Mass Index 28.25 (99.79 kg, 187.96 cm) vg1 ED Course: 09:59 Patient arrived in ED. am2 10:00 [facility] Dhillon [facility]C [facility] kb 10:00 Darrian Eason MD is Attending Physician. kb 10:04 Triage completed. vg1 10:04 Arm band placed on. vg1 10:32 Patient has correct armband on for positive identification. Bed in low position. Call ic1 light in reach. 11:20 Assist provider with I \T\ D: of an abscess on Set up I\T\D tray. Patient did not have IV ic 1 access during this emergency room visit. Administered Medications: 10:23 Drug: Doxycycline 100 mg Route: PO; ic1 11:12 Drug: Lidocaine (1 %) 1 vials {Note: administered by daly dhillon.} Volume: 5 ml; Route: ic1 Infiltration; Outcome: 10:59 Discharge ordered by . nan 11:20 Discharged to home ambulatory. ic1 11:20 Condition: stable 11:20 Discharge instructions given to patient, Instructed on discharge instructions, follow up and referral plans. Demonstrated understanding of instructions, follow-up care, medications, wound care, Prescriptions given X 1. 11:21 Patient left the ED. ic1 Signatures: Brielle Dhillon FNP-C FNP-Jo Venegas am2 Rhonda Masterson, RN RN vg1 Jodi Farrar, RN RN ic1
[2021-06-26 11:32] VITALS: TEMP 97.5; O2SAT 100
[2021-06-26 11:34] VITALS: BP 107/42
== END 2021-06-26 11:21 | disposition home or self-care (01) ==
LOC: ER 09:55
PROC: 0H98XZZ Drainage of Buttock Skin, External Approach (ICD-10-PCS; principal; 2021-06-26)
DX: L02.31 Cutaneous abscess of buttock (principal); I10 Essential (primary) hypertension; Z72.0 Tobacco use; Z88.2 Allergy status to sulfonamides; Z88.5 Allergy status to narcotic agent
CPT/HCPCS: 99283

== ENCOUNTER 2021-07-19 16:23 | Emergency (ER) | payer OTHER ==
--- OUTSIDE RECORDS SUMMARY | 2021-07-19 16:25 | XMS REPORT | Continuity of Care Document ---
:1980 Author Organization [facility] t Address [address] [place] [address] Care Team Providers Name Role Phone Eliezer REARDON Y Primary Care Physician Atul Conde MD Attending Clinician Meliza REARDON M Attending Clinician Alexandra SWEET Attending Clinician DR ARNOLDO Attending Clinician Unavailable PERCY Attending Clinician Unavailable DR ARNOLDO Admitting Clinician Unavailable PERCY Admitting Clinician Unavailable Payers Payer Name Policy Type Policy Number Effective Date Expiration Date S ource Problems Condition Condition Condition Status Onset Resolution Last Treating Co mments Source Name Details Category Date Date Treatment Clinician Date History of History of Disease Active 2019-0 U nivers trichomona trichomona 8-05 it y of l l 00:00: [place] vaginitis vaginitis 00 [facility] Trichomona Trichomona Disease Active 2019-0 U nivers l l 7-17 ity of vulvovagin [place] [address] [place] [address] BV BV Disease Active 2019-0 Univers (bacterial (bacterial 7-17 it y of vaginosis[place]in[place] [address] [place] [address] Obesity Obesity Disease Active 2019-0 Univers (BMI (BMI 7-08 ity of 30-39.9) 30-39.9) 00:00: [place] 00 Medical Branch Skin yeast Skin yeast Disease Active U nivers infection infection 7-18 ity of 00:00: [place] [address] [facility] [place] Screen for Screen for Disease Active U nivers STD STD 7-18 ity of (sexually (sexually [place] transmit[place] transmitte 00 Me dical d disease) d disease) Br anch Depo Depo Disease Active Univers contracept contracept 7-18 it y of ion ion 00:00: [place] [address] [facility] [place] Pain Pain Disease Active Univers pelvic pelvic 2-15 ity of 00:00: [address] Surveillan Surveillan Disease Active U nivers ce of ce of 2-15 ity of previously [place] prescribed prescribed 00 Me dical contracept contracept Br anch sosa method sosa method Irregular Irregular Disease Active Uni vers menstrual menstrual 2-15 ity of cycle cycle 00:00: [address] Well woman Well woman Disease Active U nivers exam exam 2-15 ity of without without 00:00: [place] gynecologi gynecologi 00 Me dical cornelius exam cornelius exam Branch Need for Need for Disease Active Unive rs prophylact prophylact 2-15 it y of ic ic 00:00: [place] vaccinatio vaccinatio 00 Me dical n with n with Branch combined combined diphtheria diphtheria -tetanus-p -tetanus-p ertussis ertussis (DTP) (DTP) vaccine vaccine BMI BMI Disease Active Univers 34.0-34.9, 34.0-34.9, 2-15 it y of adult adult 00:00: [place] [address] [facility] [place] Allergies, Adverse Reactions, Alerts Allergy Allergy Status Severity Reaction(s) Onset Inactive Treating Comm ents Source Name Type Date Date Clinician Tramadol Propensi Active Nausea Univer s ty to and/or 2-17 ity of adverse Vomiting 00:00: [place] reaction 00 Medical s Branch Sulfa Propensi Active Hives Univers (Sulfona ty to 6-13 ity of mide adverse 00:00: [place] Antibiot reaction 00 Medica l ics) s Branch Social History Social Habit Start Date Stop Date Quantity Comments Source History SDOH University o f Alcohol Comment [place] [facility] ical [facility] Exposure to Not sure University of SARS-CoV-2 [place] Medical (event) Branch History of Cigarette Smoker Universi ty of tobacco use [facility] Alcohol intake 2021-07-16 2021-07-16 Current drinker Unive rsity of 00:00:00 00:00:00 of alcohol [place] [facility] (finding) Branch History SDOH 2019-12-21 2019-12-21 2 University o f Alcohol Frequency 00:00:00 00:00:00 [place] M edical Branch History [facility] 2019-12-21 2019-12-21 99 University o f Alcohol Std 00:00:00 00:00:00 [place] Medical Drinks Branch History [facility] 2019-12-21 2019-12-21 99 University o f Alcohol Binge 00:00:00 00:00:00 [place] Medic al Branch Tobacco use and 2018-11-22 2018-11-22 Never used Universit y of exposure 00:00:00 00:00:00 [facility] Sex [birth year] Universit y of 00:00:00 00:00:00 [facility] Smoking Status Start Date Stop Date Source Current some day smoker 2018-11-22 00:00:00 [facility] of [facility] Medications Ordered Filled Start Stop Current Ordering Indication Dosage Frequency Signature Comments Components Source Medication Medication Date Date Medication? Clinician (SIG) Name Name meloxicam 2021- Yes [id number] 15mg Take 1 U nivers 15 mg 07-16 tablet by ity of tablet 00:00: 04:59 mouth [place] 00 :00 daily for Medical 30 days. Branch methocarbam 2021- Yes [id number] 750mg Take 1 Univers oL 750 mg 07-16 03-16 tablet by ity of tablet 00:00: 04:59 mouth 2 [place] 00 :00 (two) Medical times Branch daily for 14 days. Norethindro 2020-05 Yes [id number] 1{tbl} Take 1 Univers ne 2-02 tablet by ity of Acet-Ethiny 00:00: mouth [place] l Est 00 daily. Medical (LOESTRIN Branch 1.10/14, 21,) 1.5-30 mg-mcg per tablet METOPROLOL Yes [id number] TAKE /2 Univers TARTRATE 25 7-05 TABLET BY ity of mg tablet 00:00: MOUTH [place] 00 EVERY DAY Medical Branch Nitrofurant Yes [id number] 100mg Take 1 Univers oin&Nit. 3-22 capsule by ity o f Macrocryst 00:00[place] (MACROBID) 00 (two) Medical 100 mg times Branch capsule daily. naproxen Yes [id number] 550mg Take 1 U nivers sodium 550 3-22 tablet by ity of mg tablet 00:00: mouth 2 [place] 00 (two) Medical times Branch daily with meals. metaxalone Yes [id number] 800mg Take 1 Univers (SKELAXIN) 3-22 tablet by ity of 800 mg 00:00: mouth 3 [place] tablet 00 (three) Medical times Branch daily. ferrous Yes [id number] 324mg Take 1 Un bruce sulfate 324 1-26 tablet by ity of mg (65 mg 00:00: mouth 2 [place] iron) EC 00 (two) Medical tablet times Branch daily with meals. omeprazole Yes Univers 40 mg 5-02 ity of capsule 00:00: [place] 00 [facility] Immunizations Ordered Filled Immunization Date Status Comments [facility] e Immunization Name Name Influenza Virus 2020-05-30 Completed Universit y of Vaccine Quad .5 mL 00:00:00 [facility] 6+ MO Branch Influenza Virus 2018-04-19 Completed Universit y of Vaccine Quad .5 mL 00:00:00 [facility] 6+ MO Branch TDAP 2015-07-02 Completed [facility] 00:00:00 [facility] Td 1996-12-28 Completed [facility] 00:00:00 [facility] Vital Signs Vital Name Observation Time Observation Value Comments Source Body temperature 2021-07-16 22:48:00 36.17 [facility] Body height 2021-07-16 22:48:00 188 cm [facility] Body weight 2021-07-16 22:48:00 112.038 kg [facility] BMI 2021-07-16 22:48:00 31.71 kg/m2 [facility] Procedures This patient has no known procedures. Encounters Start End Encounter Admission Attending Care Care Encounter Source Date/Time Date/Time Type Type Clinicians Facility Department ID 2021-07-16 2021-07-16 JESSICA Ham [id number] Univers 15:50:00 16:00:00 Visit [facility] SPECIALTY [id number] ity [facility] [id number] [facility] AT [phone] Al reid Ervin [facility] 2020-11-29 2020-11-29 Refill Meliza Gloria [id number] 00:00:00 00:00:00 , [facility] [id number] M s and [id number] Adult [id number] [facility] 2020-11-16 2020-11-16 Refill Meliza Gloria [id number] 00:00:00 00:00:00 , [facility] [id number] M s and [id number] Adult [id number] [facility] 2020-11-15 2020-11-15 Office Faizan Morris [id number] 11:30:23 12:00:23 Visit [facility] [id number] s and [id number] Adult [id number] [facility] 2020-11-13 2020-11-13 Patient Meliza Gloria [id number] 00:00:00 00:00:00 Secure Msg , [facility] [id number] M s and [id number] Adult [id number] [facility] 2018-10-15 2018-10-15 Emergency E [place] [id number] [place] 02:31:00 03:40:00 [facility] [place] 2018-10-01 2018-10-01 Outpatient C [facility] [id number] [place] 08:05:00 23:59:00 [facility] [place] Results Test Description Test Time Test Comments Results Result [facility] e Comments CT ABDOMEN AND 2018-10-01 EXAM: CT ABDOMEN AND PELVIS WITH 08:51:45 PELVIS WITH CONTRAST CONTRAST.LOCATION: D4.HISTORY: [id number]: Disorder of [id number]: Benign neoplasm of colon.COMPARISON:None. TECHNIQUE:CT abdomen and [...]
[2021-07-19 18:04] LABS: SARS-COV-2 RT PCR NEGATIVE (NEGATIVE)
--- NOTE | 2021-07-19 18:35 | EDPHYS ---
Physician Documentation [facility] Name: Tg Quarles Age: 41 yrs Sex: Female : 1980 Arrival Date: 07/19/2021 Time: 16:24 Bed 12 Private MD: ED Physician Darrian Eason HPI: 07/19 17:40 This 41 yrs old Female presents to ER via Ambulatory with complaints of Cough, Sore cp Throat, bodyaches, Headache. 17:40 The patient or guardian reports cough, that is intermittent, with productive sputum. cp 17:40 Onset: The symptoms/episode began/occurred 3 day(s) ago. Severity of symptoms: in the emergency department the symptoms are unchanged, despite home interventions. 17:40 Associated signs and symptoms: Pertinent positives: sore throat, Pertinent negatives: cp chest pain, diarrhea, fever, vomiting. 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 - Social history:: Smoking status: Patient reports the use of cigarette tobacco products, smokes one-half pack cigarettes per day. ROS: 17:45 Constitutional: Positive for body aches, chills, Negative for fever, poor PO intake. cp 17:45 Eyes: Negative for injury, pain, redness, and discharge. cp 17:45 ENT: Positive for sore throat, Negative for drainage from ear(s), ear pain, difficulty swallowing, difficulty handling secretions. 17:45 Cardiovascular: Negative for chest pain. 17:45 Respiratory: Positive for cough, Negative for shortness of breath, wheezing. 17:45 Abdomen/GI: Negative for abdominal pain, nausea, vomiting, and diarrhea. 17:45 : Negative for urinary symptoms. 17:45 Neuro: Negative for altered mental status, dizziness, headache, weakness. 17:45 All other systems are negative. Exam: 17:50 Constitutional: The patient appears in no acute distress, alert, awake, cp non-diaphoretic, non-toxic, well developed, well nourished. 17:50 Head/Face: Normocephalic, atraumatic. cp 17:50 Eyes: Periorbital structures: appear normal, Conjunctiva: normal, no exudate, no injection, Sclera: no appreciated abnormality, Lids and lashes: appear normal, bilaterally. 17:50 ENT: External ear(s): are unremarkable, Ear canal(s): are normal, clear, TM's: dullness, bilaterally, Nose: is normal, Mouth: Lips: moist, Oral mucosa: moist, Posterior pharynx: Airway: no evidence of obstruction, patent, Tonsils: with erythema, no enlargement, no exudate, Uvula: midline, swelling, is not appreciated, erythema, that is mild, exudate, is not appreciated. 17:50 Neck: ROM/movement: is normal, is supple, without pain, no range of motions limitations, Lymph nodes: no appreciated lymphadenopathy. 17:50 Chest/axilla: Inspection: normal. 17:50 Cardiovascular: Rate: normal, Rhythm: regular. 17:50 Respiratory: the patient does not display signs of respiratory distress, Respirations: normal, no use of accessory muscles, no retractions, labored breathing, is not present, Breath sounds: decreased breath sounds, are not appreciated, stridor, is not appreciated, + upper airway congestion. wheezing: is not appreciated. 17:50 Abdomen/GI: Exam negative for discomfort, distension, guarding, Inspection: abdomen appears normal. 17:50 Skin: no rash present. Vital Signs: 16:39 BP 128 / 70; Pulse 88; Resp 16; Temp 97.2; Pulse Ox 99% on R/A; Weight 112.04 kg; ww Height 6 ft. 2 in. (187.96 cm); 16:39 Body Mass Index 31.71 (112.04 kg, 187.96 cm) ww MDM: 16:55 Patient medically screened. cp 17:00 Differential Diagnosis: Bronchitis Influenza Sinusitis Pharyngitis Otitis Media cp Pneumonia. 18:34 Data reviewed: vital signs, nurses notes, lab test result(s). cp 18:34 Counseling: I had a detailed discussion with the patient and/or guardian regarding: the cp historical points, exam findings, and any diagnostic results supporting the discharge/admit diagnosis, lab results, to return to the emergency department if symptoms worsen or persist or if there are any questions or concerns that arise at home. ED course: VSS. Patient appears non-toxic and no signs of respiratory distress. Will discharge to home for continued monitoring. 07/19 16:48 Order name: SARS-COV-2 RT PCR (Document "Date of Onset" if Symptomatic) iw 07/19 16:48 Order name: Strep; Complete Time: 18:33 iw 07/19 17:19 Order name: Throat Culture EDMS 07/19 17:20 Order name: COVID-19/FLU A+B; Complete Time: 18:33 EDMS Administered Medications: No medications were administered Disposition Summary: 07/19/21 18:34 Discharge Ordered Location: Home cp Problem: new cp Symptoms: are unchanged cp Condition: Stable cp Diagnosis - Influenza due to identified novel influenza A virus cp Followup: cp - With: Private Physician - When: 2 - 3 days - Reason: Worsening of condition Discharge Instructions: - Discharge Summary Sheet cp - Influenza, Adult cp Forms: - Medication Reconciliation Form cp - Thank You Letter cp - Antibiotic Education cp - Prescription Opioid Use cp Prescriptions: - Bromfed DM 2-30-10 mg/5 mL Oral syrup - take 10 milliliter by ORAL route every 4 hours; 200 milliliter; Refills: 0, cp Product Selection Permitted Signatures: Dispatcher [employer] EDMS Darrian Montanez PA PA cp Wood, Whitney RN RN ww Corrections: (The following items were deleted from the chart) 17:20 16:48 SARS-COV-2 RT PCR ordered. EDDE EDMS 17:20 16:50 Influenza Screen (A \\T\\ B)+BA.LAB.BRZ ordered. EDDE EDMS
--- NOTE | 2021-07-19 18:35 | ER ---
Nurse's Notes [facility] Name: Tg Quarles Age: 41 yrs Sex: Female : 1980 Arrival Date: 07/19/2021 Time: 16:24 Bed 12 Private MD: Diagnosis: Influenza due to identified novel influenza A virus Presentation: 07/19 16:39 Chief complaint: Patient states: Sore throat, cough, body aches and raspy voice that ww started on Thursday. Coronavirus screen: Client denies travel out of the [place] in the last 14 days. Ebola Screen: Patient denies travel to an Ebola-affected area in the 21 days before illness onset. Initial Sepsis Screen: Does the patient meet any 2 criteria? No. Patient's initial sepsis screen is negative. Does the patient have a suspected source of infection? No. Patient's initial sepsis screen is negative. Risk Assessment: Do you want to hurt yourself or someone else? Patient reports no desire to harm self or others. Onset of symptoms is unknown. 16:39 Method Of Arrival: Ambulatory ww 16:39 Acuity: JULIENNE 4 ww Triage Assessment: 16:41 General: Appears in no apparent distress. Behavior is calm, cooperative. Pain: ww Complains of pain in uvula, left aspect of posterior pharynx and right aspect of posterior pharynx. EENT: Reports nasal congestion. Neuro: Level of Consciousness is awake, alert, obeys commands, Oriented to person, place, time, situation, Speech is normal. Cardiovascular: Capillary refill < 3 seconds Patient's skin is warm and dry. Respiratory: Reports cough that is Airway is patent Respiratory effort is even, unlabored, Respiratory pattern is regular, symmetrical. GI: No signs and/or symptoms were reported involving the gastrointestinal system. : No signs and/or symptoms were reported regarding the genitourinary system. 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 - Social history:: Smoking status: Patient reports the use of cigarette tobacco products, smokes one-half pack cigarettes per day. Screenin:25 Abuse screen: Denies threats or abuse. Denies injuries from another. Nutritional iw screening: No deficits noted. Tuberculosis screening: No symptoms or risk factors identified. Fall Risk None identified. Assessment: 18:25 Reassessment: Patient appears in no apparent distress at this time. Patient and/or iw family updated on plan of care and expected duration. Pain level reassessed. Patient is alert, oriented x 3, equal unlabored respirations, skin warm/dry/pink. Vital Signs: 16:39 BP 128 / 70; Pulse 88; Resp 16; Temp 97.2; Pulse Ox 99% on R/A; Weight 112.04 kg; ww Height 6 ft. 2 in. (187.96 cm); 16:39 Body Mass Index 31.71 (112.04 kg, 187.96 cm) ww ED Course: 16:24 Patient arrived in ED. am2 16:41 Triage completed. ww 16:41 Arm band placed on left wrist. ww 16:44 Vanessa Aden, RN is Primary Nurse. iw 16:53 Darrian Montanez PA is PHCP. cp 16:53 Darrian Eason MD is Attending Physician. cp 17:06 SARS-COV-2 RT PCR (Document "Date of Onset" if Symptomatic) Sent. ww Administered Medications: No medications were administered Outcome: 18:34 Discharge ordered by . cp 18:57 Patient left the ED. iw Signatures: Vanessa Aden, RN SUMAYA Darrian Montanez PA PA cp Moreno, Amanda am2 Lisa Kong RN RN
[2021-07-19 19:28] VITALS: BP 128/70; TEMP 97.2; O2SAT 99
== END 2021-07-19 18:57 | disposition home or self-care (01) ==
LOC: ER 16:23
DX: J10.1 Influenza due to other identified influenza virus with other respiratory manifestations (principal); Z20.822 Contact with and (suspected) exposure to COVID-19; I10 Essential (primary) hypertension; F17.210 Nicotine dependence, cigarettes, uncomplicated; Z88.2 Allergy status to sulfonamides; Z88.5 Allergy status to narcotic agent
CPT/HCPCS: 87070; 87081; 0240U; 99282

== ENCOUNTER 2021-10-21 22:21 | Emergency (ER) | payer OTHER ==
--- OUTSIDE RECORDS SUMMARY | 2021-10-21 22:24 | XMS REPORT | Continuity of Care Document ---
:1980 Author Organization [facility] t Address [address] [place] [address] Care Team Providers Name Role Phone Fransisco MARTINS Primary Care Physician Unavailable KP Attending Clinician Unavailable Carlos FROST Attending Clinician Unavailable Eliezer REARDON Y Attending Clinician Fransisco MARTINS Attending Clinician Unavailable Meliza REARDON, M Attending Clinician Alexandra MEDINAP Attending Clinician DR ARNOLDO Attending Clinician Unavailable PERCY Attending Clinician Unavailable DR ARNOLDO Admitting Clinician Unavailable PERCY Admitting Clinician Unavailable Payers Payer Name Policy Type Policy Number Effective Date Expiration Date [facility] [id number] 2017 00:00:00 Problems Condition Condition Condition Status Onset Resolution Last Treating Co mments Source Name Details Category Date Date Treatment Clinician Date Essential Essential Disease Active Uni vers hypertensi hypertensi 5-03 it y of on on 00:00: [address] Branch History of History of Disease Active 2019-0 U nivers trichomona trichomona 8-05 it y of l l 00:00: [place] vaginitis vaginitis [address] [place] [address] Trichomona Trichomona Disease Active 2019- U nivers l l 7-17 ity of vulvovagin [place] [address] [place] [address] Branch BV BV Disease Active 2019-0 Univers (bacterial (bacterial 7-17 it y of vaginosis) vaginosis[place] Obesity Obesity Disease Active Univers (BMI (BMI 7-08 ity of 30-39.9) 30-39.9) 00:00: [address] Branch Skin yeast Skin yeast Disease Active U nivers infection infection 7-18 ity of 00:00: [place] [address] Medical Branch Screen for Screen for Disease Active U nivers STD STD 7-18 ity of (sexually (sexually [place] transmit[place] transmitte 00 Me dical d disease) d disease) Br anch Depo Depo Disease Active Univers contracept contracept 7-18 it y of ion ion 00:00: [address] Pain Pain Disease Active Univers pelvic pelvic 2-15 ity of 00:00: [address] Surveillan Surveillan Disease Active U nivers ce of ce of 2-15 [place]y of previously [place] prescribed prescribed 00 [place] dical contracept contracept Br anch sosa method sosa method Irregular Irregular Disease Active Uni vers menstrual menstrual 2-15 ity of cycle cycle 00:00: [address] Well woman Well woman Disease Active U nivers exam exam 2-15 ity of without without 00:00: [place] gynecologi gynecologi 00 Me dical cornelius exam cornelius exam Branch Need for Need for Disease Active Unive rs prophylact prophylact 2-15 it y of ic ic 00:00: [place] vaccinatio vaccinatio 00 Me dical n with n with Branch combined combined diphtheria diphtheria -tetanus-p -tetanus-p ertussis ertussis (DTP) (DTP) vaccine vaccine BMI BMI Disease Active Univers 34.0-34.9, 34.0-34.9, 2-15 it y of adult adult 00:00: [address] Allergies, Adverse Reactions, Alerts Allergy Allergy Status Severity Reaction(s) Onset Inactive Treating Comm ents Source Name Type Date Date Clinician TRAMADOL DRUG Active N/V Univers INGREDI 2-17 ity of 00:00: [place] [address] Medical Branch Tramadol Propensi Active Nausea Univer s ty to and/or 2-17 ity of adverse Vomiting 00:00: [place] reaction 00 Medical s Branch Sulfa Propensi Active Hives Univers (Sulfona ty to 6-13 ity of mide adverse 00:00: [place] Antibiot reaction 00 Medica l ics) s Branch SULFA Drug Active Hives Univers (SULFONA Class 6-13 ity of MIDE 00:00: [place] ANTIBIOT 00 Medical ICS) Branch Social History Social Habit Start Date Stop Date Quantity Comments Source History [facility] o f Alcohol Comment [place] [facility] ical [facility] History of Cigarette Smoker Universi ty of tobacco use [place] [facility] Exposure to 2021-09-07 2021-09-17 Not sure University of SARS-CoV-2 00:00:00 12:34:00 [place] Medical (event) Branch Alcohol intake 2021-09-17 2021-09-17 Current drinker Unive rsity of 00:00:00 00:00:00 of alcohol [place] Medical (finding) Branch History [facility] 2019-12-21 2019-12-21 2 University o f Alcohol Frequency 00:00:00 00:00:00 [place] M edical Branch History [facility] 2019-12-21 2019-12-21 99 University o f Alcohol Std 00:00:00 00:00:00 [place] Medical Drinks Branch History [facility] 2019-12-21 2019-12-21 99 University o f Alcohol Binge 00:00:00 00:00:00 [place] Medic al Branch Tobacco use and 2018-11-22 2018-11-22 Never used Universit y of exposure 00:00:00 00:00:00 [facility] Sex Ass[birth year] At [birth year] Universit y of 00:00:00 00:00:00 [facility] Branch Smoking Status Start Date Stop Date Source Current some day smoker 2018-11-22 00:00:00 Univ ersity of [place] [facility] Medications Ordered Filled Start Stop Current Ordering Indication Dosage Frequency Signature Comments Components Source Medication Medication Date Date Medication? Clinician (SIG) Name Name metoprolol Yes [id number] 12.5mg Take 0.5 Univers tartrate 25 5-03 tablets by it y of mg tablet 00:00: mouth [place] 00 daily. Medical Branch metoprolol Yes [id number] 12.5mg Take 0.5 Univers tartrate 25 5-03 tablets by it y of mg tablet 00:00: mouth [place] 00 daily. Medical Branch Norethindro 2020-05- No [id number] 1{tbl} Take 1 Univers ne 06-19- tablet by ity of Acet-Ethiny 00:00: 00:[place] 00 :00 daily. Medical (LOESTRIN Branch 1.10/14, 21,) 1.5-30 mg-mcg per tablet METOPROLOL 2021- No [id number] TAKE 1/2 Univers TARTRATE 25 11-19- TABLET BY it y of mg tablet 00:00: 00:00 MOUTH [place] 00 :00 EVERY DAY Medical Branch Nitrofurant 2021- No [id number] 100mg Take 1 Univers oin&Nit. 08-06 capsule by ity of Macrocryst 00:00: 00:00 mouth 2 Vaibhav as (MACROBID) 00 :00 (two) Medical 100 mg times Branch capsule daily. naproxen 2021- No [id number] 550mg Take 1 Univers sodium 550 08-06- tablet by ity of mg tablet 00:00: 00:[place] :[place] (two) Medical times Branch daily with meals. metaxalone 2021- No [id number] 800mg Take 1 Univers (SKELAXIN) 08-06- tablet by ity of 800 mg 00:00: 00:00 mouth 3 [place] tablet 00 :00 (three) Medical times Branch daily. ferrous Yes [id number] 324mg Take 1 Un bruce sulfate 324 1-26 tablet by ity of mg (65 mg 00:00: mouth 2 [place] iron) EC 00 (two) Medical tablet times Branch daily with meals. ferrous Yes [id number] 324mg Take 1 Un bruce sulfate 324 1-26 tablet by ity of mg (65 mg 00:00: mouth 2 [place] iron) EC 00 (two) Medical tablet times Branch daily with meals. omeprazole Yes Univers 40 mg 5-02 ity of capsule 00:00: [place] 00 Medical Branch omeprazole Yes Univers 40 mg 5-02 ity of capsule 00:00: [place] 00 Medical Branch Immunizations Ordered Filled Immunization Date Status Comments Sourc e Immunization Name Name Influenza Virus 2020-05-30 Completed Universit y of Vaccine Quad .5 mL 00:00:00 [facility] IM 6+ MO Branch Influenza Virus 2020-05-30 Completed Universit y of Vaccine Quad .5 mL 00:00:00 [place] Medical IM 6+ MO Branch Influenza Virus 2018-04-19 Completed Universit y of Vaccine Quad .5 mL 00:00:00 [place] [facility] IM 6+ MO Branch Influenza Virus 2018-04-19 Completed Universit y of Vaccine Quad .5 mL 00:00:00 [facility] IM 6+ MO Branch TDAP 2015-07-02 Completed University 00:00:00 [facility] Branch TDAP 2015-07-02 Completed University 00:00:00 [facility] Td 1996-12-28 Completed [facility] 00:00:00 [facility] Td 1996-12-28 Completed [facility] 00:00:00 [facility] Vital Signs Vital Name Observation Time Observation Value Comments Source Systolic blood 2021-09-17 18:10:00 138 mm[Hg] Univer sity of pressure [facility] Diastolic blood 2021-09-17 18:10:00 74 [facility]Hg] [facility] 2021-09-17 18:10:00 76 /min [facility] Body temperature 2021-09-17 18:10:00 36.67 Alysa [facility] Respiratory rate 2021-09-17 18:10:00 18 /min [facility] Body weight 2021-09-17 18:10:00 110.224 kg [facility] BMI 2021-09-17 18:10:00 31.20 kg/m2 [facility] Procedures This patient has no known procedures. Encounters Start End Encounter Admission Attending Care Care Encounter Source Date/Time Date/Time Type Type Clinicians Facility Department ID 2021-10-24 2021-10-24 Outpatient KP [facility] [id number] Univers 11:15:00 11:15:00 TYLER [id number] [facility] 2021-10-08 2021-10-08 Outpatient Maia FROST [facility] [id number] Univers 09:30:00 09:30:00 ISHA [id number] [facility] 2021-10-08 2021-10-08 Outpatient Maia FROST [facility] [id number] Univers 09:30:00 09:30:00 ISHA [facility] 2021-09-18 2021-09-18 Telephone Silas Martins [id number] Univers 00:00:00 00:00:00 Y PEDIATRIC [id number] it[place] [id number] [address] 2021-09-17 2021-09-17 Office Silas Martins [id number] Univers 13:15:00 13:48:45 Visit Y PEDIATRIC [id number] [place] [id number] [address] 2021-09-17 2021-09-17 Outpatient SILAS GUEVARA [facility] [id number] [facility] 13:15:00 13:48:45 ity [facility] 2020-11-29 2020-11-29 Refill Meliza Gloria [id number] 00:00:00 00:00:00 , [facility] Pediatric [id number] M s and 4.2.7.2.686 Adult [id number] [place] [address] Care [facility] 2020-11-16 2020-11-16 Refill Meliza Gloria [id number] 00:00:00 00:00:00 , [facility] [id number] M s and 4.2.7.2.686 Adult [id number] Primary 314 Care [facility] 2020-11-15 2020-11-15 Office Faizan Morris [id number] 11:30:23 12:00:23 Visit [facility] [id number] s and 4.2.7.2.686 Adult [id number] Primary [facility] Care [facility] 2020-11-13 2020-11-13 Patient Meliza Gloria [id number] 00:00:00 00:00:00 Secure Susan Yang Pediatric [id number] M s and 4.2.7.2.686 Adult [id number] Primary [facility] 2018-10-15 2018-10-15 Emergency E ARNOLDO, [facility] [id number] 02:31:00 03:40:00 [facility] 2018-10-01 2018-10-01 Outpatient C PERCY, [facility] RAD [id number] 08:05:00 23:59:00 [facility] Results Test Description Test Time Test Comments Results Result [facility] e Comments CT ABDOMEN AND 2018-10-01 EXAM: CT ABDOMEN AND PELVIS WITH 08:51:45 PELVIS WITH CONTRAST CONTRAST.LOCATION: D4.HISTORY: [id number]: Disorder of [id number]: Benign neoplasm of colon.COMPARISON:None. TECHNIQUE:CT abdomen and [...]
--- NOTE | 2021-10-21 23:54 | EDPHYS ---
Physician Documentation [facility] Name: Tg Quarles Age: 41 yrs Sex: Female : 1980 Arrival Date: 10/21/2021 Time: 22:25 Bed Waiting Private MD: [facility] Physician Miguel Ángel Marks HPI: 10/21 22:53 This 41 yrs old Female presents to ER via Ambulatory with complaints of Runny Nose, en Congestion. 22:53 Right 41-year-old female with history of hypertension presents to ED after COVID en exposure with symptoms of sinus congestion, headache, body aches, runny nose.. 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 - Social history:: Smoking status: Patient denies any tobacco usage or history of. Patient/guardian denies using alcohol. ROS: 22:53 Constitutional: Negative for fever, chills, and weight loss. en 22:53 Constitutional: Positive for body aches, chills, malaise, Negative for fever. 22:53 ENT: Positive for rhinorrhea, sinus congestion, sore throat. 22:53 Cardiovascular: Negative for chest pain, orthopnea. 22:53 Respiratory: Negative for cough, shortness of breath. 22:53 Abdomen/GI: Negative for nausea, vomiting, and diarrhea. 22:53 Skin: Negative for rash. 22:53 Neuro: Positive for headache. 22:53 All other systems are negative. Exam: 22:53 Constitutional: This is a well developed, well nourished patient who is awake, alert, en and in no acute distress. 22:53 Constitutional: The patient appears in no acute distress, alert, awake. 22:53 Head/face: Sinus tenderness, is not appreciated. 22:53 Eyes: Conjunctiva: normal, no exudate, no injection. 22:53 ENT: TM's: are normal, Nose: is normal, Mouth: Lips: moist, Oral mucosa: pink and intact, moist. 22:53 Cardiovascular: Rate: normal, Rhythm: regular, Pulses: no pulse deficits are appreciated, Heart sounds: normal, no murmur, no rub, no gallop. 22:53 Respiratory: the patient does not display signs of respiratory distress, Respirations: normal, Breath sounds: are clear throughout, no rales, rhonchi, no stridor, no wheezing. 22:53 Abdomen/GI: Inspection: abdomen appears normal, Bowel sounds: normal, in all quadrants, Palpation: abdomen is soft and non-tender, in all quadrants. 22:53 Neuro: Orientation: is normal, no acute changes, Mentation: is normal. 22:53 Psych: Behavior/mood is pleasant, cooperative, Affect is calm. Vital Signs: 22:49 BP 125 / 93; Pulse 101; Resp 18; Temp 97.9(TE); Pulse Ox 98% on R/A; Weight 110.68 kg; ld1 Height 6 ft. 1 in. (185.42 cm); Pain 0/10; 22:49 Body Mass Index 32.19 (110.68 kg, 185.42 cm) ld1 MDM: 22:53 Differential Diagnosis: Bronchitis Upper Respiratory Infection Other COVID. Data en reviewed: vital signs, nurses notes, lab test result(s), and as a result, I will discharge patient, will d/c home after COVID test. 23:53 Patient medically screened. en 06 01:50 ED course: Patient called to update on negative COVID-19 result. No questions at this aj3 time. . 10/21 22:53 Order name: COVID-19 SARS RT PCR (Document "Date of Onset" if Symptomatic); Complete en Time: 01:49 Administered Medications: No medications were administered Disposition: 02:08 Co-signature as Attending Physician, Miguel Ángel Marks MD. [email or web address] Disposition Summary: 10/21/21 23:53 Discharge Ordered Location: Home en Problem: new en Symptoms: are unchanged en Condition: Stable en Diagnosis - Acute upper respiratory infection, unspecified en Followup: en - With: Alber Arcos MD - When: As needed - Reason: Discharge Instructions: - Discharge Summary Sheet en - Upper Respiratory Infection, Adult, [id number] en Forms: - Medication Reconciliation Form en - Thank You Letter en - Antibiotic Education en - Prescription Opioid Use en Prescriptions: - Claritin 10 mg Oral Tablet - take 1 tablet by ORAL route once daily As needed; 30 tablet; Refills: 0, en Product Selection Permitted Signatures: Dispatcher [employer] Miguel Ángel Flores MD MD [email or web address] Charlene Nascimento RN RN ld1 Erika Norton PA PA Jo Manley NP PRINTER SLOTTER OPERATOR [email or web address]
--- NOTE | 2021-10-21 23:54 | ER ---
Nurse's Notes [facility] Name: Tg Quarles Age: 41 yrs Sex: Female : 1980 Arrival Date: 10/21/2021 Time: 22:25 Bed Waiting Private MD: Diagnosis: Acute upper respiratory infection, unspecified Presentation: 10/21 22:49 Chief complaint: Patient states: Runny nose, cough, congestion X 4 days. Coronavirus ld1 screen: Client presents with at least one sign or symptom that may indicate coronavirus-19. Standard/surgical mask placed on the client. Ebola Screen: No symptoms or risks identified at this time. Initial Sepsis Screen: Does the patient meet any 2 criteria? No. Patient's initial sepsis screen is negative. Does the patient have a suspected source of infection? No. Patient's initial sepsis screen is negative. Risk Assessment: Do you want to hurt yourself or someone else? Patient reports no desire to harm self or others. Onset of symptoms was October 21, 2021. 22:49 Method Of Arrival: Ambulatory ld1 22:49 Acuity: JULIENNE 4 ld1 Triage Assessment: 22:51 General: Appears in no apparent distress. comfortable, Behavior is calm, cooperative, ld1 appropriate for age. Pain: Denies pain. EENT: No signs and/or symptoms were reported regarding the EENT system. Neuro: Level of Consciousness is awake, alert, obeys commands, Oriented to person, place, time, situation. Cardiovascular: Capillary refill < 3 seconds Patient's skin is warm and dry. Respiratory: Airway is patent Respiratory effort is even, unlabored, Breath sounds are clear. GI: Abdomen is flat, non-distended. 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 - Social history:: Smoking status: Patient denies any tobacco usage or history of. Patient/guardian denies using alcohol. Screenin:38 Abuse screen: Denies threats or abuse. Denies injuries from another. Nutritional ld1 screening: No deficits noted. Tuberculosis screening: No symptoms or risk factors identified. Fall Risk None identified. Assessment: 23:38 Reassessment: See triage assessment. Cardiovascular: Capillary refill < 3 seconds ld1 Patient's skin is warm and dry. Respiratory: Airway is patent Respiratory effort is even, unlabored. Vital Signs: 22:49 BP 125 / 93; Pulse 101; Resp 18; Temp 97.9(TE); Pulse Ox 98% on R/A; Weight 110.68 kg; ld1 Height 6 ft. 1 in. (185.42 cm); Pain 0/10; 22:49 Body Mass Index 32.19 (110.68 kg, 185.42 cm) ld1 ED Course: 22:25 Patient arrived in ED. ag3 22:31 Erika Norton PA is PHCP. en 22:31 Miguel Ángel Marks MD is Attending Physician. en 22:51 Triage completed. ld1 22:51 Arm band placed on right wrist. ld1 23:00 COVID-19 SARS RT PCR (Document "Date of Onset" if Symptomatic) Sent. ld1 23:38 Patient has correct armband on for positive identification. Placed in gown. Bed in low ld1 position. Call light in reach. Side rails up X2. nurse monitoring on. Pulse ox on. NIBP on. Door closed. Noise minimized. Warm blanket given. 23:38 No provider procedures requiring assistance completed. Patient did not have IV access ld1 during this emergency room visit. 23:53 Alber Arcos MD is Referral Physician. en Administered Medications: No medications were administered Medication: 23:38 VIS not applicable for this client. ld1 Outcome: 23:38 Discharged to home ambulatory. ld1 23:38 Condition: stable 23:38 Discharge instructions given to patient, Instructed on discharge instructions, follow up and referral plans. Demonstrated understanding of instructions, follow-up care. 23:53 Discharge ordered by . en 23:56 Patient left the ED. ld1 Signatures: Kym Plummer ag3 Charlene Nascimento RN RN ld1 Erika Norton PA PA en
[2021-10-22 02:08] VITALS: BP 125/93; TEMP 97.9; O2SAT 98
== END 2021-10-21 23:56 | disposition home or self-care (01) ==
LOC: ER 22:21
DX: J06.9 Acute upper respiratory infection, unspecified (principal); Z20.822 Contact with and (suspected) exposure to COVID-19; I10 Essential (primary) hypertension; Z88.2 Allergy status to sulfonamides; Z88.5 Allergy status to narcotic agent
CPT/HCPCS: 99284; U0003

== ENCOUNTER 2021-12-30 18:43 | Emergency (ER) | payer OTHER ==
--- OUTSIDE RECORDS SUMMARY | 2021-12-30 18:46 | XMS REPORT | Continuity of Care Document ---
:1980 Author Organization [facility] t Address [address] [place] [address] Care Team Providers Name Role Phone Jl Martins MD Primary Care Physician Rabia Sanchez MD Attending Clinician RABIA SANCHEZ Attending Clinician Unavailable Doctor Unassigned, [place] Attending Clinician Unavailable Susan Haider MD Attending Clinician [phone] Attending Clinician [address] MATT MCLAUGHLIN Attending Clinician Unavailable LORENA GREER Attending Clinician Unavailable DR MATT MCLAUGHLIN Admitting Clinician Unavailable LORENA GREER Admitting Clinician Unavailable Payers Payer Name Policy Type Policy Number Effective Date Expiration Date S ource Problems Condition Condition Condition Status Onset Resolution Last Treating Co mments Source Name Details Category Date Date Treatment Clinician Date Essential Essential Disease Active 2021- Uni vers hypertensi hypertensi 5-03 it y of on on 00:00: [address] History of History of Disease Active 2020-0 U nivers trichomona trichomona 8-05 it y of l l 00:00: [place] vaginitis vaginitis [address] [place] [address] Trichomona Trichomona Disease Active 2019-0 U nivers l l 7-17 ity of vulvovagin [place] it[place] 00 [facility] Branch BV BV Disease Active Univers (bacterial (bacterial 7-17 it y of vaginosis) vaginosis[place] Obesity Obesity Disease Active Univers (BMI (BMI 7-08 ity of 30-39.9) 30-39.9) 00:00: [place] [address] Medical Branch Skin yeast Skin yeast Disease Active U nivers infection infection 7-18 ity of 00:00: [place] [address] Medical Branch Screen for Screen for Disease Active U nivers STD STD 7-18 ity of (sexually (sex[place] transmit[place] transmitte 00 Me dical d disease) d disease) Br anch Depo Depo Disease Active Univers contracept contracept 7-18 it y of ion ion 00:00: [address] Pain Pain Disease Active Univers pelvic pelvic 2-15 ity of 00:00: [address] Branch Surveillan Surveillan Disease Active U nivers ce of ce of 2-15 ity of previously [place] prescribed prescribed 00 Me dical contracept contracept Br anch sosa method sosa method Irregular Irregular Disease Active Uni vers menstrual menstrual 2-15 ity of cycle cycle 00:00: [address] Well woman Well woman Disease Active U nivers exam exam 2-15 ity of without without 00:00: [place] gynecologi gynecologi 00 Me dical cornelius exam cornelius exam Branch Need for Need for Disease Active Unive rs prophylact prophylact 2-15 it y of ic ic 00:00: [place] vaccinatio vaccinatio 00 Me dical n with n with Branch combined combined diphtheria diphtheria -tetanus-p -tetanus-p ertussis ertussis (DTP) (DTP) vaccine vaccine BMI BMI Disease Active Univers 34.0-34.9, 34.0-34.9, 2-15 it y of adult adult 00:00: [address] Branch Allergies, Adverse Reactions, Alerts Allergy Allergy Status Severity Reaction(s) Onset Inactive Treating Comm ents Source Name Type Date Date Clinician TRAMADOL DRUG Active N/V Univers INGREDI 2-17 ity of 00:00: [place] [address] Medical Branch Tramadol Propensi Active Nausea Univer [...] Date Stop Date Quantity Comments Source History [facility] o f Alcohol Comment [facility] ical Branch History of Cigarette Smoker Universi ty of tobacco use [facility] Branch Exposure to 2021-11-17 2021-11-27 Not sure University of SARS-CoV-2 00:00:00 09:11:00 [facility] (event) Branch Tobacco use and 2021-11-27 2021-11-27 Smokeless tobacco Un iversity of exposure 00:00:00 00:00:00 non-user [facility] Alcohol intake 2021-11-27 2021-11-27 Current drinker Unive rsity of 00:00:00 00:00:00 of alcohol [place] [facility] (finding) Branch History [facility] 2019-12-21 2019-12-21 2 University o f Alcohol Frequency 00:00:00 00:00:00 [place] M edical Branch History [facility] 2019-12-21 2019-12-21 99 University o f Alcohol Std 00:00:00 00:00:00 [place] Medical Drinks Branch History [facility] 2019-12-21 2019-12-21 99 [place] o f Alcohol Binge 00:00:00 00:00:00 [facility] Branch Sex Ass[birth year] At [birth year] Universit y of 00:00:00 00:00:00 [facility] Smoking Status Start Date Stop Date Source Occasional tobacco smoker 2021-11-27 00:00:00 Un iversity of [place] [facility] Medications Ordered Filled Start Stop Current Ordering Indication Dosage Frequency Signature Comments Components Source Medication Medication Date Date Medication? Clinician (SIG) Name Name miconazole Yes [id number] 100mg Insert 1 Univers 100 mg 11-20 Suppositor ity of vaginal 00:00: y into [place] suppository 00 vagina at [place] bedtime. Branch miSOPROStoL Yes [id number] Take one Univers 200 mcg 7-06 tablet ity of tablet 00:00: night [place] 00 before Medical procedure, Branch then take one tablet morning of procedure miconazole 0 Yes [id number] 100mg Insert 1 Univers 100 mg 7-06 Suppositor ity of vaginal 00:00: y into [place] suppository 00 vagina at [place] bedtime. Branch miSOPROStoL Yes [id number] Take one Univers 200 mcg 7-06 tablet ity of tablet 00:00: night [place] 00 before Medical procedure, Branch then take one tablet morning of procedure miconazole Yes [id number] 100mg Insert 1 Univers 100 mg 7-06 Suppositor ity of vaginal 00:00: y into [place] suppository 00 vagina at [place] bedtime. Branch miSOPROStoL Yes [id number] Take one Univers 200 mcg 7-06 tablet ity of tablet 00:00: night [place] 00 before Medical procedure, Branch then take one tablet morning of procedure fluconazole Yes [id number] 150mg Take 1 Univers 150 mg 6-20 tablet by ity of tablet 00:00: mouth [place] 00 every 72 Medical ([facility] wo) hours. fluconazole Yes [id number] 150mg Take 1 Univers 150 mg 6-20 tablet by ity of tablet 00:00: mouth [place] 00 every 72 Medical ([facility] Branch wo) hours. fluconazole Yes [id number] 150mg Take 1 Univers 150 mg 6-20 tablet by ity of tablet 00:00: mouth [place] 00 every 72 Medical ([facility] Branch wo) hours. metoprolol Yes [id number] 12.5mg Take 0.5 Univers tartrate 25 5-03 tablets by it y of mg tablet 00:00: mouth [place] 00 daily. Medical Branch metoprolol Yes [id number] 12.5mg Take 0.5 Univers tartrate 25 5-03 tablets by it y of mg tablet 00:00: mouth [place] 00 daily. Medical Branch metoprolol Yes [id number] 12.5mg Take 0.5 Univers tartrate 25 5-03 tablets by it y of mg tablet 00:00: mouth [place] 00 daily. Medical Branch ferrous Yes [id number] 324mg Take 1 Un bruce sulfate 324 1-26 tablet by ity of mg (65 mg 00:00: mouth 2 [place] iron) EC 00 (two) Medical tablet times Branch daily with meals. ferrous 2020-0 Yes [id number] 324mg Take 1 Un bruce sulfate 324 1-26 tablet by ity of mg (65 mg 00:00: mouth 2 [place] iron) EC 00 (two) Medical tablet times Branch daily with meals. ferrous 2020-0 Yes [id number] 324mg Take 1 Un bruce sulfate 324 1-26 tablet by ity of mg (65 mg 00:00: mouth 2 [place] iron) EC 00 (two) Medical tablet times Branch daily with meals. omeprazole Yes Univers 40 mg 5-02 ity of capsule 00:00: [place] [facility] omeprazole 0 Yes Univers 40 mg 5-02 ity of capsule 00:00: [place] [facility] omeprazole 0 Yes Univers 40 mg 5-02 ity of capsule 00:00: [place] [facility] Immunizations Ordered Filled Immunization Date Status Comments [facility] e Immunization Name Name Influenza Virus 2020-05-30 Completed Universit y of Vaccine Quad .5 mL 00:00:00 [facility] 6+ MO Branch Influenza Virus 2020-05-30 Completed Universit y of Vaccine Quad .5 mL 00:00:00 [facility] 6+ MO Branch Influenza Virus 2020-05-30 Completed Universit y of Vaccine Quad .5 mL 00:00:00 [facility] 6+ MO Branch Influenza Virus 2018-04-19 Completed Universit y of Vaccine Quad .5 mL 00:00:00 [facility] 6+ MO Branch Influenza Virus 2018-04-19 Completed Universit y of Vaccine Quad .5 mL 00:00:00 [facility] 6+ MO Branch Influenza Virus 2018-04-19 Completed Universit y of Vaccine Quad .5 mL 00:00:00 [facility] 6+ MO Branch TDAP 2015-07-02 Completed University of 00:00:00 [facility] [place] [facility] TDAP 2015-07-02 Completed University of 00:00:00 [facility] TDAP 2015-07-02 Completed University of 00:00:00 [facility] [place] [facility] Td 1996-12-28 Completed University of 00:00:00 [facility] [place] [facility] Td 1996-12-28 Completed University of 00:00:00 [facility] [place] [facility] Td 1996-12-28 Completed University of 00:00:00 [facility] Vital Signs Vital Name Observation Time Observation Value Comments Source Systolic blood 2021-11-27 14:35:00 110 mm[Hg] Univer sity of pressure [facility] [place] [facility] Diastolic blood 2021-11-27 14:35:00 75 mm[Hg] Unive rsity of [facility] Heart rate 2021-11-27 14:35:00 71 /min [facility] Body temperature 2021-11-27 14:35:00 37.11 Alysa Univ ersity [facility] Body height 2021-11-27 14:35:00 188 cm [facility] Body weight 2021-11-27 14:35:00 111.585 kg [facility] BMI 2021-11-27 14:35:00 31.58 kg/m2 [facility] Procedures Procedure Date / Time Performed Performing Clinician Sour e DISCLOSURE AND 2021-11-27 05:01:00 Doctor Unassigned, No Univer sit of [place] CONSENT, MEDICAL AND Name Medical Bra [facility] SURGICAL PROCEDURES POCT TEST 2021-11-27 00:00:00 Rabia Sanchez [facility] Encounters Start End Encounter Admission Attending Care Care Encounter Source Date/Time Date/Time Type Type Clinicians Facility Department ID 2021-11-27 2021-11-27 Office Rabia Sanchez [facility] [id number] Univers 09:15:00 10:42:35 Visit Oleg INMAN [id number] i ty [facility] [id number] [place] PROFESS[place] [id number] Wy dical [facility] [address] [facility] 2021-11-27 2021-11-27 Outpatient R RABIA SANCHEZ [facility] [id number] Univers 09:15:00 10:42:35 ity of [facility] [place] [facility] 2021-11-27 2021-11-27 Orders Doctor MERCADO [id number] Univers 00:00:00 00:00:00 Only Unassigned, LEROY [id number] ity of [place] [facility] [id number] Vaibhav as [id number] [address] 2020-11-29 2020-11-29 Refill Meliza Ratliffin [id number] 00:00:00 00:00:00 , Susan Pediatric [id number] M s and 4.2.7.2.686 Adult [id number] [facility] 2020-11-16 2020-11-16 Refill Meliza Ratliffin [id number] 00:00:00 00:00:00 , Susan Pediatric [id number] M s and 4.2.7.2.686 Adult [id number] [facility] 2020-11-15 2020-11-15 Office MorrisFaizan [id number] 11:30:23 12:00:23 Visit Arcelia Pediatric [id number] s and 4.2.7.2.686 Adult [id number] [facility] 2020-11-13 2020-11-13 Patient Meliza Gloria [id number] 00:00:00 00:00:00 Secure Msg , Susan Pediatric [id number] M s and 4.2.7.2.686 Adult [id number] Primary [facility] 2018-10-15 2018-10-15 Emergency E MCLAUGHLIN, [facility] [id number] be 02:31:00 03:40:[facility] 2018-10-01 2018-10-01 Outpatient C PERCY, [facility] [id number] 08:05:00 23:59:00 [facility] Results Test Description Test Time Test Comments Results Result Comments Source POCT TEST 2021-11-27 14:40:00 Test Item Value Reference Range Interpretation Comme nts POCT PREG (test code = 1605) Negative On board controls acceptable with C Line (test code = 3574) Yes POCT PREG LOT # (test code = 3575) POCT PREG TEST DATE (test code = 3576) [id number] 14:40:00 Test Item Value Reference Range Interpretation Comments POCT PREG (test code = 1605) Negative On board controls acceptable with C Yes Line (test code = 3574) POCT PREG LOT # (test code = 3575) POCT PREG TEST DATE (test code = 3576) [facility] [id number] 08:51:45EXAM: CT ABDOMEN AND PELVIS WITH CONTRAST.LOCATION: D4.HISTORY: [id number]: Disorder of [id number]: Benign neoplasm of colon.COMPARISON:None.TECHNIQUE:CT abdomen and pelvis [...]
[2021-12-30 19:55] LABS: Absolute Lymphocytes (CBC) 1.5 K/uL (0.7-4.9); Hematocrit 39.3 % (36.0-45.0); Lymphocytes % 20.5 % (15.3-44.8); MCV 82.4 fL (80-100); MPV 9.2 fL (7.6-11.3); RBC Red Blood Cell Count 4.77 M/uL (3.86-4.86)
[2021-12-30 20:10] LABS: Albumin 4.2 g/dL (3.4-5.0); Bilirubin Total 0.3 mg/dL (0.2-1.0); Potassium 4.3 mmol/L (3.5-5.1); Protein, Total 8.5 g/dL (6.4-8.2)
[2021-12-30 20:52] LABS: Urine Blood Trace-intact (Negative); Urine Glucose Negative (Negative); Urine Protein Trace (Negative); Urine Specific Gravity 1.025 (1.005-1.030); Urine pH 6.5 (5.0-7.0)
--- NOTE | 2021-12-30 21:19 | RAD REPORT ---
EXAM DESCRIPTION: CT - Stone Protocol - 12/30/2021 9:05 pm CLINICAL HISTORY: Abdominal pain. Flank pain COMPARISON: 2018 TECHNIQUE: Computed axial tomography of the abdomen pelvis was obtained without oral or IV contrast. Lack of IV and oral contrast limits evaluation of solid organs, appendix, bowel, and vessels. Rivera l reformatted images were obtained and reviewed. All CT scans are performed using dose optimization technique as appropriate and may include automated exposure control or mA/KV adjustment according to patient size. FINDINGS: Punctate right renal calculus. A left renal calculus is not seen. No hydronephrosis. An ureteral calculus is not noted. A bladder calculus is not present. The liver, spleen, pancreas and adrenals appear grossly normal There is no evidence of diverticulitis. No adnexal mass IMPRESSION: Punctate nonobstructing right renal calculus
[2021-12-30 21:25] LABS: Urine Bacteria 20-50 /HPF (<20); Urine Mucus 2+ /HPF (None Seen); Urine RBC <5 /HPF (None Seen)
[2021-12-30] MEDS ORDERED: KETOROLAC 30 MG/ML INJ ONE (21:33)
[2021-12-30] MEDS ORDERED: NA CHLORIDE 0.9% 1,000 ML ONE (21:33)
[2021-12-30] MEDS ORDERED: CYCLOBENZAPRINE 10 MG TAB ONE (21:33)
[2021-12-30] MEDS ORDERED: CEFTRIAXONE 1000 MG/VIAL ONE (21:42)
--- NOTE | 2021-12-30 22:51 | EDPHYS ---
Physician Documentation [facility] Name: Tg Quarles Age: 41 yrs Sex: Female : 1980 Arrival Date: 12/30/2021 Time: 18:49 Bed 10 Private MD: ED Physician Miguel Ángel Marks HPI: 12/30 19:40 This 41 yrs old Female presents to ER via Wheelchair with complaints of Back Pain. cp 19:40 The patient presents with pain that is acute, with no known mechanism of injury. cp 19:40 The symptoms are located in the right mid back and right low back. Onset: The cp symptoms/episode began/occurred today. 19:40 The pain radiates to the right flank. Associated signs and symptoms: Pertinent cp negatives: chest pain, constipation, fever, hematuria, incontinence, numbness, urinary retention, vomiting, weakness. The problem was sustained from unknown cause. Severity of symptoms: in the emergency department the symptoms are unchanged, despite home interventions. The patient has experienced similar episodes in the past, multiple times, pain described as "back spasms". 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 - Social history:: Smoking status: Patient reports the use of cigarette tobacco products, smokes one-half pack cigarettes per day. ROS: 19:45 Constitutional: Negative for body aches, chills, fever, poor PO intake. cp 19:45 Eyes: Negative for injury, pain, redness, and discharge. cp 19:45 ENT: Negative for drainage from ear(s), ear pain, sore throat, difficulty swallowing, difficulty handling secretions. 19:45 Cardiovascular: Negative for chest pain, edema, palpitations. 19:45 Respiratory: Negative for cough, shortness of breath, wheezing. 19:45 Abdomen/GI: Negative for vomiting, diarrhea, constipation. 19:45 Back: Positive for pain at rest, pain with movement, of the right mid back and right low back, Negative for injury or acute deformity, decreased range of motion. 19:45 : Positive for flank pain, Negative for hematuria. 19:45 Skin: Negative for cellulitis, rash. 19:45 Neuro: Negative for altered mental status, headache, numbness, tingling, weakness. 19:45 All other systems are negative. Exam: 19:50 Constitutional: The patient appears in no acute distress, alert, awake, non-toxic, well cp developed, well nourished, uncomfortable. 19:50 Head/Face: Normocephalic, atraumatic. cp 19:50 Eyes: Periorbital structures: appear normal, Conjunctiva: normal, no exudate, no injection, Sclera: no appreciated abnormality, Lids and lashes: appear normal, bilaterally. 19:50 ENT: External ear(s): are unremarkable, Nose: is normal, Mouth: Lips: moist, Oral mucosa: moist, Posterior pharynx: Airway: no evidence of obstruction, patent. 19:50 Neck: ROM/movement: is normal, is supple, without pain, no range of motions limitations. 19:50 Chest/axilla: Inspection: normal. 19:50 Cardiovascular: Rate: normal, Rhythm: regular, Edema: is not appreciated, JVD: is not appreciated. 19:50 Respiratory: the patient does not display signs of respiratory distress, Respirations: normal, no use of accessory muscles, no retractions, labored breathing, is not present, Breath sounds: are clear throughout, no decreased breath sounds, no stridor, no wheezing. 19:50 Abdomen/GI: Inspection: abdomen appears normal, Bowel sounds: active, all quadrants, Palpation: soft, in all quadrants, mild abdominal tenderness, in the posterior aspect of right lateral abdomen and anterior aspect of right lateral abdomen, rebound tenderness, is not appreciated, voluntary guarding, is not appreciated, involuntary guarding, is not appreciated. 19:50 Back: pain, that is moderate, of the right mid back and right low back, ROM is painful, with all movement. 19:50 Neuro: Orientation: to person, place \\T\\ time. Mentation: is normal, Motor: moves all fours, strength is normal, Sensation: is normal, Gait: is steady, at a normal pace, without difficulty. Vital Signs: 19:26 Weight 111.58 kg; Height 6 ft. 2 in. (187.96 cm); Pain 10/10; vc1 19:35 BP 131 / 77; Pulse 85; Resp 18; Temp 97.9; Pulse Ox 99% ; vc1 20:18 BP 110 / 56; Pulse 83; Resp 18; Pulse Ox 98% on R/A; lp1 21:30 BP 112 / 46; Pulse 73; Resp 16; Pulse Ox 99% on R/A; lp1 23:25 BP 107 / 60; Pulse 75; Resp 18; Pulse Ox 99% on R/A; Pain 7/10; lp1 23:43 BP 114 / 53; Pulse 83; Resp 18; Pulse Ox 100% on R/A; lp1 19:26 Body Mass Index 31.58 (111.58 kg, 187.96 cm) vc1 MDM: 19:59 Patient medically screened. cp 21:00 Differential diagnosis: chronic back pain, Pyelonephritis ruptured disc, cp Ureterolithiasis vertebral fracture. 22:50 Data reviewed: vital signs, nurses notes, lab test result(s), radiologic studies, CT cp scan. 22:50 Counseling: I had a detailed discussion with the patient and/or guardian regarding: the cp historical points, exam findings, and any diagnostic results supporting the discharge/admit diagnosis, lab results, radiology results, the need for outpatient follow up, a family practitioner, to return to the emergency department if symptoms worsen or persist or if there are any questions or concerns that arise at home. Response to treatment: pain improved, and as a result, I will discharge patient. 12/30 19:32 Order name: CBC with Diff; Complete Time: 21:10 cp 12/30 21:10 Interpretation: Normal except: MCV 82.4; JORDYN% 74.0. cp 12/30 19:32 Order name: CMP; Complete Time: 21:10 cp 12/30 19:32 Order name: Lipase; Complete Time: 21:10 cp 12/30 19:32 Order name: Urine Microscopic Only; Complete Time: 21:29 cp 12/30 21:29 Interpretation: Normal except: UWBC 11-20; UBACT 20-50. cp 12/30 19:59 Order name: Glucose, Ancillary Testing; Complete Time: 21:10 EDMS 12/30 20:52 Order name: Urine Dipstick-Ancillary; Complete Time: 21:10 EDOK 12/30 19:32 Order name: CT Stone Protocol; Complete Time: 21:29 cp 12/30 20:53 Order name: Urine --Ancillary (enter results) mw2 12/30 21:29 Order name: Urine Culture EDOK 12/30 19:32 Order name: IV Saline Lock; Complete Time: 19:42 cp 12/30 19:32 Order name: Labs collected and sent; Complete Time: 19:42 cp 12/30 19:32 Order name: Urine Dipstick-Ancillary (obtain specimen); Complete Time: 19:55 cp 12/30 19:32 Order name: Urine Test (obtain specimen); Complete Time: 19:55 cp Administered Medications: 21:30 Drug: Ketorolac 15 mg Route: IVP; Site: right antecubital; lp1 22:39 Follow up: Response: Pain is unchanged, physician notified lp1 21:30 Drug: Flexeril (cyclobenzaprine) 10 mg Route: PO; lp1 22:39 Follow up: Response: No adverse reaction lp1 21:30 Drug: NS 0.9% 1000 ml Route: IV; Rate: 1 bolus; Site: right antecubital; lp1 23:26 Follow up: IV Status: Completed infusion; IV Intake: 1000ml lp1 21:44 Drug: Rocephin (cefTRIAXone) 1 grams Route: IV; Rate: calculated rate; Site: right bb antecubital; 22:39 Follow up: IV Status: Completed infusion lp1 23:25 Drug: morphine 4 mg Route: IVP; Infused Over: 4 mins; Site: right antecubital; lp1 23:44 Follow up: Response: Marked relief of symptoms; Pain is decreased lp1 Disposition: 12/31 04:56 Co-signature as Attending Physician, Miguel Ángel Marsk MD. [email or web address] Disposition Summary: 12/30/21 22:50 Discharge Ordered Location: Home cp Problem: new cp Symptoms: have improved cp Condition: Stable cp Diagnosis - UTI/ Urinary tract infection, site not specified cp - Low back pain cp Followup: cp - With: Private Physician - When: 2 - 3 days - Reason: Recheck today's complaints Discharge Instructions: - Discharge Summary Sheet cp - Acute Back Pain, Adult cp - Urinary Tract Infection, Adult cp - Heat Therapy cp - Back Exercises cp Forms: - Medication Reconciliation Form cp - Thank You Letter cp - Antibiotic Education cp - Prescription Opioid Use cp Prescriptions: - Lidoderm 5 % Topical adhesive patch,medicated - apply 1 patch by TOPICAL route once daily; 10 patch; Refills: 0, Product cp Selection Permitted - Cyclobenzaprine 10 mg Oral Tablet - take 1 tablet by ORAL route every 8 hours As needed; 20 tablet; Refills: 0, cp Product Selection Permitted - Diclofenac Sodium 75 mg Oral Tablet Sustained Release - take 1 tablet by ORAL route 2 times per day; 30 tablet; Refills: 0, Product cp Selection Permitted - cefpodoxime 200 mg Oral Tablet - take 1 tablet by ORAL route every 12 hours with food; 14 tablet; Refills: 0, cp Product Selection Permitted - Diflucan 150 mg Oral Tablet - take 1 tablet by ORAL route one time for 1 day; 1 tablet; Refills: 0, Product cp Selection Permitted Signatures: Dispatcher [employer] Stefanie Peacock, RN RN bb Ada Jay RN RN lp1 Darrian Montanez PA PA cp Miguel Ángel Marks MD MD [email or web address] Kary Xiao RN RN vc1
--- NOTE | 2021-12-30 22:51 | ER ---
Nurse's Notes [facility] Name: Tg Quarles Age: 41 yrs Sex: Female : 1980 Arrival Date: 12/30/2021 Time: 18:49 Bed 10 Private MD: Diagnosis: UTI/ Urinary tract infection, site not specified;Low back pain Presentation: 12/30 19:25 Chief complaint: Patient states: "I'm having back spasms". Coronavirus screen: Vaccine vc1 status: Patient reports receiving the 2nd dose of the covid vaccine. Moderna At this time, the client does not indicate any symptoms associated with coronavirus-19. Ebola Screen: No symptoms or risks identified at this time. Risk Assessment: Do you want to hurt yourself or someone else? Patient reports no desire to harm self or others. Onset of symptoms was December 30, 2021. 19:25 Method Of Arrival: Wheelchair vc1 19:25 Acuity: JULIENNE 4 vc1 19:26 Chief complaint: Pt states that she has these all the time, usually takes advil but vc1 today it feels worse so she didn't take any just came to the ER. 19:30 Initial Sepsis Screen: Does the patient have a suspected source of infection? No. vc1 Patient's initial sepsis screen is negative. 20:19 Initial Sepsis Screen: Does the patient meet any 2 criteria? No. Patient's initial lp1 sepsis screen is negative. Triage Assessment: 19:27 General: Appears in no apparent distress. uncomfortable, Behavior is appropriate for vc1 age. Pain: Complains of pain in right low back Pain radiates to lumbar area Pain currently is 10 out of 10 on a pain scale. Quality of pain is described as sharp. EENT: No signs and/or symptoms were reported regarding the EENT system. Neuro: Level of Consciousness is awake, alert, obeys commands, Oriented to person, place, time, situation, Appropriate for age. Cardiovascular: No deficits noted. Respiratory: Airway is patent Respiratory effort is even, unlabored, Respiratory pattern is regular, symmetrical. GI: No deficits noted. : No signs and/or symptoms were reported regarding the genitourinary system. Derm: No deficits noted. Musculoskeletal: Patient grimacing with movement. 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 - Social history:: Smoking status: Patient reports the use of cigarette tobacco products, smokes one-half pack cigarettes per day. Screenin:30 Abuse screen: Denies threats or abuse. Nutritional screening: No deficits noted. vc1 Tuberculosis screening: No symptoms or risk factors identified. Fall Risk None identified. Assessment: 20:00 General: Appears in no apparent distress. Behavior is appropriate for age. Pain: lp1 Complains of pain in lumbar area Pain currently is 8 out of 10 on a pain scale. Quality of pain is described as sharp. Neuro: Level of Consciousness is awake, alert, obeys commands, Oriented to person, place, time, situation, Gait is steady. Cardiovascular: Patient's skin is warm and dry. Respiratory: Respiratory effort is even, unlabored. GI: No signs and/or symptoms were reported involving the gastrointestinal system. : No signs and/or symptoms were reported regarding the genitourinary system. EENT: No signs and/or symptoms were reported regarding the EENT system. Derm: Skin is pink, warm \\T\\ dry. Musculoskeletal: No deficits noted. 20:20 Reassessment: Patient aware of need for urine specimen. lp1 22:38 Reassessment: Patient lying with eyes closed, reports no relief with medications lp1 administered. 23:25 Reassessment: Patient aware of pending discharge, calling for ride home. lp1 23:57 Reassessment: Patient is alert, oriented x 3, equal unlabored respirations, skin lp1 warm/dry/pink. Patient states feeling better. Patient states symptoms have improved. Vital Signs: 19:26 Weight 111.58 kg; Height 6 ft. 2 in. (187.96 cm); Pain 10/10; vc1 19:35 BP 131 / 77; Pulse 85; Resp 18; Temp 97.9; Pulse Ox 99% ; vc1 20:18 BP 110 / 56; Pulse 83; Resp 18; Pulse Ox 98% on R/A; lp1 21:30 BP 112 / 46; Pulse 73; Resp 16; Pulse Ox 99% on R/A; lp1 23:25 BP 107 / 60; Pulse 75; Resp 18; Pulse Ox 99% on R/A; Pain 7/10; lp1 23:43 BP 114 / 53; Pulse 83; Resp 18; Pulse Ox 100% on R/A; lp1 19:26 Body Mass Index 31.58 (111.58 kg, 187.96 cm) vc1 ED Course: 18:49 Patient arrived in ED. mr 19:11 Darrian Montanez PA is PHCP. cp 19:11 Miguel Ángel Marks MD is Attending Physician. cp 19:25 Triage completed. vc1 19:27 Arm band placed on left wrist. vc1 19:30 Patient has correct armband on for positive identification. vc1 19:52 Inserted saline lock: 20 gauge in right antecubital area, using aseptic technique. vc1 Blood collected. 19:54 Ada Jay, RN is Primary Nurse. lp1 21:06 CT Stone Protocol In Process Unspecified. EDMS 23:25 No provider procedures requiring assistance completed. lp1 23:44 IV discontinued, No redness/swelling at site. Pressure dressing applied. lp1 Administered Medications: 21:30 Drug: Ketorolac 15 mg Route: IVP; Site: right antecubital; lp1 22:39 Follow up: Response: Pain is unchanged, physician notified lp1 21:30 Drug: Flexeril (cyclobenzaprine) 10 mg Route: PO; lp1 22:39 Follow up: Response: No adverse reaction lp1 21:30 Drug: NS 0.9% 1000 ml Route: IV; Rate: 1 bolus; Site: right antecubital; lp1 23:26 Follow up: IV Status: Completed infusion; IV Intake: 1000ml lp1 21:44 Drug: Rocephin (cefTRIAXone) 1 grams Route: IV; Rate: calculated rate; Site: right bb antecubital; 22:39 Follow up: IV Status: Completed infusion lp1 23:25 Drug: morphine 4 mg Route: IVP; Infused Over: 4 mins; Site: right antecubital; lp1 23:44 Follow up: Response: Marked relief of symptoms; Pain is decreased lp1 Medication: 19:31 VIS not applicable for this client. vc1 Intake: 23:26 IV: 1000ml; Total: 1000ml. lp1 Outcome: 22:50 Discharge ordered by . cp 23:44 Discharged to home with family. lp1 23:44 Condition: good 23:44 Discharge instructions given to patient, Instructed on discharge instructions, follow up and referral plans. medication usage, Demonstrated understanding of instructions, follow-up care, medications, Prescriptions given X 5 08/16 00:00 Patient left the ED. lp1 Signatures: Dispatcher [employer] Milagros Carvajal mr Stefanie Sigala, RN RN Ada Dean RN RN lp1 Darrian Montanez PA PA cp Calcote, Vanessa, RN RN vc1
[2021-12-30] MEDS ORDERED: MORPHINE 4 MG/ML SYR ONE (23:17)
[2021-12-30 23:48] LABS: Urine Specific Gravity/Preg 1.025 (1.005-1.030)
[2021-12-31 01:09] VITALS: TEMP 97.9
[2021-12-31 01:18] VITALS: BP 114/53; O2SAT 100
== END 2021-12-31 | disposition home or self-care (01) ==
LOC: ER 18:43
DX: N39.0 Urinary tract infection, site not specified (principal); I10 Essential (primary) hypertension; F17.210 Nicotine dependence, cigarettes, uncomplicated; Z88.2 Allergy status to sulfonamides; Z88.5 Allergy status to narcotic agent
CPT/HCPCS: 87088; 85025; 87086; 36415; 81025; 82947; 83690; 80053; 76377; 74176; J7030; 81003; 81015; 96361; 96365; 96375; 99284

== ENCOUNTER 2022-02-28 22:17 | Emergency (ER) | payer OTHER ==
--- OUTSIDE RECORDS SUMMARY | 2022-02-28 22:20 | XMS REPORT | Continuity of Care Document ---
:1980 Author Organization [facility] t Address [address] [place] [address] Care Team Providers Name Role Phone Silas Martins MD Primary Care Physician Rabia Sanchez MD Attending Clinician RABIA SANCHEZ Attending Clinician Unavailable Doctor Unassigned, [place] Attending Clinician Unavailable TYLER GOODRICH Attending Clinician Unavailable Tyler Goodrich PA-C Attending Clinician Pob, [facility] Attending Clinician Unavailable MINE FROST Attending Clinician Unavailable Silas Martins MD Attending Clinician SILAS MARTINS Attending Clinician Unavailable Susan Haider MD Attending Clinician [phone] ELOY ROLAND Attending Clinician Unavailable Alan Conde MD Attending Clinician ALAN CONDE Attending Clinician Unavailable SUSAN HAIDER Attending Clinician Unavailable Arcelia Qiu Attending Clinician ARCELIA MORRIS Attending Clinician Unavailable Kerry Collins PA-C Attending Clinician LORENA SALGADO Attending Clinician Unavailable Rebeca Mcclellan MD Attending Clinician Yves Ayala DO Attending Clinician KERRY COLLINS Attending Clinician Unavailable Nurse, Gaudencio Rawls Attending Clinician Unavailable Nurse, [facility] Attending Clinician Unavailable Meryl REARDON, Mine Gonzalez Attending Clinician Vonda TRAINING REPRESENTATIVE, Bridget Sheth Attending Clinician Maximo SWEET, Gianni Vigil Attending Clinician Unknown, Attending Attending Clinician Unavailable Quoc AMPOULE INSPECTOR, Michelle Reyes Attending Clinician Unavailable UNKNOWN, ATTENDING Attending Clinician Unavailable Steven SHELL, Holly Nunez Attending Clinician Unavailable Fransico REARDON, Cyrus Mcneil Attending Clinician Melissa REARDON, [place] Nunez Attending Clinician DR MATT MCLAUGHLIN Attending Clinician Unavailable LORENA GREER Attending Clinician Unavailable DR MATT MCLAUGHLIN Admitting Clinician Unavailable LORENA GREER Admitting Clinician Unavailable Payers Payer Name Policy Type Policy Number Effective Date Expiration Date [facility] [id number] 2017 00:00:00 Problems Condition Condition Condition Status Onset Resolution Last Treating Co mments Source Name Details Category Date Date Treatment Clinician Date Essential Essential Disease Active Uni vers hypertensi hypertensi 5-03 it y of on on 00:00: [address] History of History of Disease Active 2019-0 U nivers trichomona trichomona 8-05 it y of l l 00:00: [place] vaginitis vaginitis 00 [facility] Trichomona Trichomona Disease Active 2019- U nivers l l 7-17 ity of vulvovagin [place] [address] [place] [address] BV BV Disease Active 2019-0 Univers (bacterial (bacterial 7-17 it y of vaginosis) vaginosis[place] [address] [place] [address] Obesity Obesity Disease Active 2019-0 Univers (BMI (BMI 7-08 ity of 30-39.9) 30-39.9) 00:00: [address] Skin yeast Skin yeast Disease Active U nivers infection infection 7-18 ity of 00:00: [address] Screen for Screen for Disease Active U nivers STD STD 7-18 ity of (sexually (sexually [place] transmit[place] transmitte 00 Me dical d disease) d disease) Br anch Depo Depo Disease Active Univers contracept contracept 7-18 it y of ion ion 00:00: [place] 00 Medical Branch Pain Pain Disease Active Univers pelvic pelvic 2-15 ity of 00:00: [place] [facility] Surveillan Surveillan Disease Active U nivers ce of ce of 2-15 [place]y of previously [place] prescribed 00 Me dical contracept contracept Br anch sosa method sosa method Irregular Irregular Disease Active Uni vers menstrual menstrual 2-15 ity of cycle cycle 00:00: [place] [address] Medical Branch Well woman Well woman Disease Active U nivers exam exam 2-15 ity of without without 00:00: [place] gynecologi gynecologi 00 Me dical cornelius exam cornleius exam Branch Need for Need for Disease Active Unive rs prophylact prophylact 2-15 it y of ic ic 00:00: [place] vaccinatio vaccinatio 00 Me dical n with n with Branch combined combined diphtheria diphtheria -tetanus-p -tetanus-p ertussis ertussis (DTP) (DTP) vaccine vaccine BMI BMI Disease Active Univers 34.0-34.9, 34.0-34.9, 2-15 it y of adult adult 00:00: [place] 00 Medical Branch Allergies, Adverse Reactions, Alerts Allergy Allergy Status Severity Reaction(s) Onset Inactive Treating Comm ents Source Name Type Date Date Clinician TRAMADOL DRUG Active N/V Univers INGREDI 2-17 ity of 00:00: [place] [facility] Tramadol Propensi Active Nausea Univer [...] Date Stop Date Quantity Comments Source History [facility] o f Alcohol Comment [place] [facility] History of Cigarette Smoker Universi ty of tobacco use [place] [facility] [place] Exposure to 2021-11-17 2021-11-27 Not sure University of SARS-CoV-2 00:00:00 09:11:00 [place] [facility] (event) Branch Tobacco use and 2021-11-27 2021-11-27 Smokeless tobacco Un iversity of exposure 00:00:00 00:00:00 non-user [facility] Branch Alcohol intake 2021-11-27 2021-11-27 Current drinker Unive rsity of 00:00:00 00:00:00 of alcohol [place] [facility] (finding) Branch History [facility] 2019-12-21 2019-12-21 2 University o f Alcohol Frequency 00:00:00 00:00:00 [place] M edical Branch History [facility] 2019-12-21 2019-12-21 99 University o f Alcohol Std 00:00:00 00:00:00 [place] [facility] Drinks Branch History [facility] 2019-12-21 2019-12-21 99 University o f Alcohol Binge 00:00:00 00:00:00 [place] Medic al Branch Sex [birth year] At [birth year] Universit y of 00:00:00 00:00:00 [facility] Smoking Status Start Date Stop Date Source Occasional tobacco smoker 2021-11-27 00:00:00 Un iversity of [facility] Branch Medications Ordered Filled Start Stop Current Ordering Indication Dosage Frequency Signature Comments Components Source Medication Medication Date Date Medication? Clinician (SIG) Name Name miconazole Yes [id number] 100mg Insert 1 Univers 100 mg 7-06 Suppositor ity of vaginal 00:00: y into [place] suppository 00 vagina at [facility] bedtime. Branch miSOPROStoL Yes [id number] Take one Univers 200 mcg 7-06 tablet ity of tablet 00:00: night [place] before Medical procedure, Branch then take one tablet morning of procedure miconazole Yes [id number] 100mg Insert 1 Univers 100 mg 7-06 Suppositor ity of vaginal 00:00: y into [place] suppository 00 vagina at [facility] bedtime. Branch miSOPROStoL Yes [id number] Take one Univers 200 mcg 7-06 tablet ity of tablet 00:00: night [place] 00 before Medical procedure, Branch then take one tablet morning of procedure miconazole Yes [id number] 100mg Insert 1 Univers 100 mg 7 Suppositor ity of vaginal 00:00: y into [place] suppository 00 vagina at [facility] bedtime. Branch miSOPROStoL Yes [id number] Take one Univers 200 mcg 7-06 tablet ity of tablet 00:00: night [place] 00 before Medical procedure, Branch then take one tablet morning of procedure fluconazole 2021-0 Yes [id number] 150mg Take 1 Univers 150 mg 6-20 tablet by ity of tablet 00:00: mouth [place] 00 every 72 Medical (seventy-t Branch wo) hours. fluconazole 0 Yes [id number] 150mg Take 1 Univers 150 mg 6-20 tablet by ity of tablet 00:00: mouth [place] 00 every 72 Medical (seventy-t Branch wo) hours. fluconazole 0 Yes [id number] 150mg Take 1 Univers 150 mg 6-20 tablet by ity of tablet 00:00: mouth [place] 00 every 72 Medical ([facility] Branch wo) hours. metoprolol Yes [id number] 12.5mg Take 0.5 Univers tartrate 25 5-03 tablets by it y of mg tablet 00:00: mouth [place] 00 daily. Medical Branch metoprolol Yes [id number] 12.5mg Take 0.5 Univers tartrate 25 5-03 tablets by it y of mg tablet 00:00: mouth [place] 00 daily. Medical Branch metoprolol Yes [id number] 12.5mg Take 0.5 Univers tartrate 25 5-03 tablets by it y of mg tablet 00:00: mouth [place] 00 daily. Medical Branch ferrous 2020-0 Yes [id number] 324mg Take 1 Un bruce sulfate 324 1-26 tablet by ity of mg (65 mg 00:00: mouth 2 [place] iron) EC 00 (two) Medical tablet times [place] daily with meals. ferrous 2020-0 Yes [id number] 324mg Take 1 Un bruce sulfate 324 1-26 tablet by ity of mg (65 mg 00:00: mouth 2 [place] iron) EC 00 (two) Medical tablet times [place] daily with meals. ferrous 2020-0 Yes [id number] 324mg Take 1 Un bruce sulfate 324 1-26 tablet by ity of mg (65 mg 00:00: mouth 2 [place] iron) EC 00 (two) Medical tablet times Branch daily with meals. omeprazole 2018-0 Yes Univers 40 mg 5-02 ity of capsule 00:00: [place] 00 Medical [place] omeprazole 2018-0 Yes Univers 40 mg 5-02 ity of capsule 00:00: [address] omeprazole 2018-0 Yes Univers 40 mg 5-02 ity of capsule 00:00: [address] Immunizations Ordered Filled Immunization Date Status Comments [facility] e Immunization Name Name Influenza Virus 2020-05-30 Completed Universit y of Vaccine Quad .5 mL 00:00:00 [place] [facility] IM 6+ MO Branch Influenza Virus 2020-05-30 Completed Universit y of Vaccine Quad .5 mL 00:00:00 [facility] 6+ MO Branch Influenza Virus 2020-05-30 Completed Universit y of Vaccine Quad .5 mL 00:00:00 [facility] 6+ MO Branch Influenza Virus 2018-04-19 Completed Universit y of Vaccine Quad .5 mL 00:00:00 [facility] 6+ MO Branch Influenza Virus 2018-04-19 Completed Universit y of Vaccine Quad .5 mL 00:00:00 [facility] 6+ MO Branch Influenza Virus 2018-04-19 Completed Universit y of Vaccine Quad .5 mL 00:00:00 [facility] 6+ MO Branch TDAP 2015-07-02 Completed University of 00:00:00 [facility] TDAP 2015-07-02 Completed University of 00:00:00 [facility] TDAP 2015-07-02 Completed University of 00:00:00 [facility] Td 1996-12-28 Completed University of 00:00:00 [facility] Td 1996-12-28 Completed University of 00:00:00 [facility] Td 1996-12-28 Completed University of 00:00:00 [facility] Vital Signs Vital Name Observation Time Observation Value Comments Source Systolic blood 2021-11-27 14:35:00 110 mm[Hg] Univer sity of pressure [facility] Diastolic blood 2021-11-27 14:35:00 75 mm[Hg] Unive rsity of pressure [facility] Heart rate 2021-11-27 14:35:00 71 /min Universi ty of [facility] Body temperature 2021-11-27 14:35:00 37.11 [facility] Body height 2021-11-27 14:35:00 188 cm Universi ty [facility] Body weight 2021-11-27 14:35:00 111.585 kg [facility] ty [facility] BMI 2021-11-27 14:35:00 31.58 kg/m2 [facility] ty [facility] Procedures Procedure Date / Time Performed Performing Clinician Sourc e DISCLOSURE AND 2021-11-27 05:01:00 Doctor Unassigned, No Univer sity [facility] CONSENT, MEDICAL AND Name Medical Bra [facility] SURGICAL PROCEDURES POCT TEST 2021-11-27 00:00:00 Rabia Sanchez [facility] Encounters Start End Encounter Admission Attending Care Care Encounter Source Date/Time Date/Time Type Type Clinicians Facility Department ID 2021-03-17 Emergency [facility] [id number] Univers 07:42:49 ity [facility] 2021-03-16 Emergency [facility] [id number] Univers 05:35:26 ity of [facility] 2021-03-15 Emergency [facility] [id number] Univers 07:15:04 ity [facility] 2021-11-27 2021-11-27 Office Rabia Sanchez [facility] [id number] Univers 09:15:00 10:42:35 Visit Oleg INMAN [id number] i ty [facility] 4.2.7.2.686 Babar reyes PROFESSIO [id number] [place] [address] 2021-11-27 2021-11-27 Outpatient R RABIA SANCHEZ [facility] [id number] Univers 09:15:00 10:42:35 ity of [facility] 2021-11-27 2021-11-27 Outpatient R RABIA SANCHEZ [facility] [id number] Univers 09:15:00 09:15:00 ity of [facility] 2021-11-27 2021-11-27 Outpatient R RABIA SANCHEZ [facility] [id number] Univers 09:15:00 09:15:00 ity [facility] 2021-11-27 2021-11-27 Orders Doctor MERCADO [id number] Univers 00:00:00 00:00:00 Only Unassigned, LEROY 350.1.13.10 ity of [place] [facility] 4.2.7.2.686 Vaibhav as [id number] [address] 2021-11-20 2021-11-20 Outpatient R KP [facility] [id number] Univers 10:45:00 11:09:12 TYLER ity [facility] 2021-11-20 2021-11-20 Office Kp [facility] [id number] Univers 10:45:00 11:09:12 Visit Tylre HENNY 350.1.13.10 i ty [facility] 4.2.[place] PROF[place] [id number] [place] dical NAL [address] [facility] 2021-11-04 2021-11-04 [facility] [id number] Univers 00:00:00 00:00:00 Management [place] INMAN [id number] ity of [place] 4[place]2.7.2.686 [place] PROFESS[place] [id number] [place] dical NAL 134 [facility] 2021-10-31 2021-10-31 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 Tj, Adriana Lab Main [facility] [id number] [facility] 12:00:00 12:15:00 Visit DannieevaGlenys thompsonquang INMAN 350.1.13.10 ity of [place] 4.2.7.2.686 [place] PROFESSIO [id number] [place] dical NAL 353 [facility] 2021-10-31 2021-10-31 [facility] [id number] Univers 10:15:00 11:15:11 TYLER vila [facility] 2021-10-31 2021-10-31 [facility] [id number] Univers 10:15:00 11:15:11 Visit Tylerquang INMAN 350.1.13.10 i ty [facility] 4.2.7.2.686 [place] PROFESS[place] [id number] [place] dical [address] 2021-10-31 2021-10-31 Outpatient R KP, [facility] [id number] Univers 10:15:00 11:15:11 TYLER [facility] 2021-10-24 2021-10-24 Outpatient R KP, [facility] [id number] Univers 11:15:00 11:15:00 TYLER [facility] 2021-10-08 2021-10-08 Outpatient R MERYL [facility] [id number] Univers 09:30:00 09:30:00 MINE [facility] 2021-09-18 2021-09-18 Telephone Silas Martins [id number] Univers 00:00:00 00:00:00 Y PEDIATRIC 350.1.13.10 ity of [place]2.[place] [id number] [address] 2021-09-17 2021-09-17 Office Silas Martins [id number] Univers 13:15:00 13:48:45 Visit Y PEDIATRIC 350.1.13.10 ity of [place]2.[place] [id number] [address] 2021-09-17 2021-09-17 Outpatient SILAS GUEVARA [facility] [id number] Univers 13:15:00 13:48:45 ity of [facility] 2021-09-17 2021-09-17 Outpatient SILAS GUEVARA [facility] [id number] Univers 13:15:00 13:15:00 ity of [facility] 2021-09-08 2021-09-08 Refeulalia GLORIA [id number] Univers 00:00:00 00:00:00 , Susan PEDIATRIC 350.1.13.10 ity of [place].2.[place] [id number] [address] 2021-08-26 2021-08-26 [facility]patient [facility] [id number] Univers 08:45:00 08:45:00 ELOY vila [facility] 2021-08-08 2021-08-08 Telephone Amaya [facility] [id number] Univers 00:00:00 00:00:00 Alan SPECIALTY 350.1.13.[address] [facility] [place]2.[place].2.[place] C[place] AT [phone] [place] sarahmarco a BURTONCornelia 198 [facility] 2021-07-30 2021-07-30 Outpatient Maia CONDE [facility] [id number] Univers 00:00:00 00:00:00 ALAN kaycornelia [facility] 2021-07-16 2021-07-16 Outpatient Maia CONDE [facility] [id number] Univers 16:51:18 23:59:00 ALAN vila [facility] 2021-07-16 2021-07-16 Hospital Amaya [facility] [id number] Univers 16:51:18 23:59:00 Encounter Alan SPECIALTY 350.1.13.[address] [facility] 4.2.7.2.[place] C[place] [id number] [place] sarahmarco a BURTONCornelia 809 [facility] 2021-07-16 2021-07-16 Office Amaya [facility] [id number] Univers 15:50:00 16:00:00 Visit Alan SPECIALTY 350.1.13.[address] [facility] 4.2.7.2.[place] CENTER AT [id number] [place] sarahmarco a BURTONCornelia 198 [facility] 2021-07-16 2021-07-16 Outpatient Maia CONDE [facility] [id number] Univers 15:50:00 15:50:00 ALAN vila [facility] 2021-05-28 2021-05-28 Outpatient Maia FROST [facility] [id number] Univers 15:30:00 15:30:00 MINE vila [facility] 2021-05-21 2021-05-21 Outpatient Maia HAIDER [facility] [id number] Univers 11:00:00 11:00:00 , SUSAN it [facility] 2021-04-18 2021-04-18 Outpatient R MELIZA [facility] [id number] Univers 11:15:00 11:57:00 , SUSAN villanueva [facility] 2021-04-18 2021-04-18 Office Meliza GLORIA 1.2.840.114 [id number] Univers 11:09:27 11:57:00 Visit , Susan PEDIATRIC 350.1.13.10 ity of [place]2.[place] [id number] [address] 2021-04-18 2021-04-18 Outpatient R MELIZA [facility] [id number] Univers 11:15:00 11:15:00 , SUSAN villanueva [facility] 2021-04-18 2021-04-18 Orders Doctor MERCADO [id number] Univers 00:00:00 00:00:00 Only Unassigned, LEROY 350.1.13.10 ity of [place] [facility] 4.2.7.2.686 Vaibhav as [id number] [address] 2021-02-01 2021-02-01 Outpatient R MELIZA [facility] [id number] Univers 16:00:00 16:00:00 , SUSAN villanueva [facility] 2020-11-29 2020-11-29 Refill Meliza Ratliffin 1.2.840.114 [id number] Univers 00:00:00 00:00:00 , Susan Pediatric 350.1.13.10 ity of [place] and [place]2.[place] [id number] [place] [address] Branch Care [facility] 2020-11-29 2020-11-29 Refill Meliza Faizan 1.2.840.114 [id number] 00:00:00 00:00:00 , Susan Pediatric 350.1.13.10 M s and 4.2.7.2.686 Adult [id number] Primary [address] [place] [address] Clinic 2020-11-16 2020-11-16 Refill Lowry Faizan 1.2.840.114 [id number] Univers 00:00:00 00:00:00 , Susan Pediatric 350.1.13.10 ity of M [place] and [place].2.[place] [id number] [address] 2020-11-16 2020-11-16 Refill Meliza Gloria 1.2.840.114 [id number] 00:00:00 00:00:00 , Susan Pediatric 350.1.13.10 M s and 4.2.7.2.686 Adult [id number] [address] 2020-11-15 2020-11-15 Office Faizan oMrris 1.2.840.114 [id number] [facility] 11:30:23 12:00:23 Visit Arcelia Pediatric 350.1.13.10 ity of [place] and [place]2.[place] [id number] [address] 2020-11-15 2020-11-15 Office Faizan Morris 1.2.840.114 [id number] 11:30:23 12:00:23 Visit Arcelia Pediatric 350.1.13.10 s and 4.2.7.2.686 Adult [id number] [address] 2020-11-15 2020-11-15 Outpatient Maia MORRIS [facility] [id number] [facility] 12:00:00 12:00:00 ARCELIA ity of [facility] 2020-11-14 2020-11-14 Telephone Kerry Collins 1.2.840.114 [id number] Univers 00:00:00 00:00:00 Ali Pediatric 350.1.13.10 ity of [place] and 4[place]2.[place] [id number] [address] 2020-11-13 2020-11-13 Patient Meliza Gloria 1.2.840.114 [id number] Univers 00:00:00 00:00:00 Secure Susan Yang Pediatric 350.1.13.10 ity of [place] and 4[place].2.[place] [id number] [address] 2020-11-13 2020-11-13 Patient Lowry Faizan 1.2.840.114 [id number] Univers 00:00:00 00:00:00 Secure Msg , Susan Pediatric 350.1.13.10 ity of [place] and 4[place].2.[place] [id number] [address] 2020-11-13 2020-11-13 Patient Meliza Faizan 1.2.840.114 [id number] 00:00:00 00:00:00 Secure Msg , Susan Pediatric 350.1.13.10 M s and 4.2.7.2.686 Adult [id number] [address] 2020-11-08 2020-11-08 Office Meliza Faizan 1.2.840.114 [id number] Univers 11:09:23 12:22:47 Visit , Susan Pediatric 350.1.13.10 ity of M [place] and 4[place].2.[place] [id number] [address] 2020-11-08 2020-11-08 Outpatient R MELIZA [facility] [id number] Univers 11:00:00 11:00:00 , SUSAN it y of [facility] 2020-11-02 2020-11-02 Telephone Lowry Faizan 1.2.840.114 [id number] Univers 00:00:00 00:00:00 , Susan Pediatric 350.1.13.10 ity of M [place] and 4[place].2.[place] [id number] [address] 2020-10-31 2020-10-31 Outpatient R NAOMI [facility] [id number] Univers 00:00:00 00:00:00 LORENA ity of [facility] 2020-10-25 2020-10-25 Office Meliza Faizan 1.2.840.114 [id number] Univers 11:05:46 12:04:53 Visit , Susan Pediatric 350.1.13.10 ity of M [place] and 4[place]2.[place] [id number] [facility] Primary [address] [facility] 2020-10-25 2020-10-25 Outpatient R [facility] [id number] Univers 11:00:00 11:00:00 , SUSAN it y of [facility] 2020-10-23 2020-10-23 Outpatient R [facility] [id number] Univers 16:15:00 16:15:00 , SUSAN it y of [facility] 2020-08-28 2020-08-28 Outpatient R [facility] [id number] Univers 15:45:00 15:45:00 , SUSAN it y of [facility] 2020-08-06 2020-08-06 [facility] [id number] Univers 20:28:00 23:01:00 Rebeca Inman 350.1.13.10 ity of [place]2.[place] [id number] [facility] 0[address] Branch 2020-08-06 2020-08-06 Patient Jamie [facility] 1.2.840.114 [id number] Univers 00:00:00 00:00:00 Outreach Yves [facility] 350.1.13.10 i ty of [facility] 4.2.7.2.[place] [id number] Me dical [address] 2020-07-06 2020-07-06 Outpatient R [facility] [id number] Univers 14:00:00 14:00:00 ity of [facility] 2020-07-02 2020-07-02 Outpatient R [facility] [id number] Univers 08:00:00 08:00:00 ity of [facility] 2020-06-15 2020-06-15 Patient Kerry Collins [facility] 1.2.840.114 [id number] Univers 00:00:00 00:00:00 Secure Msg Rebeca LEEWEnrique 350.1.13.10 ity of [place].2.[place] PEDIATRIC [id number] Me dical AND ADULT [address] [facility] 2020-06-11 2020-06-11 Telephone UriahKerry Faizan 1.2.840.114 [id number] Univers 00:00:00 00:00:00 Rebeca Pediatric 350.1.13.10 ity of s and 4.2.7.2.[place] [id number] [address] 2020-06-08 2020-06-08 Office Meliza Gloria 1.2.840.114 [id number] Univers 14:45:00 15:00:00 Visit , Susan Pediatric 350.1.13.10 ity of M [place] and 4.2.7.2.[place] [id number] [address] 2020-06-08 2020-06-08 Outpatient R MELIZA [facility] [id number] Univers 14:45:00 14:45:00 , SUSAN villanueva [facility] 2020-06-08 2020-06-08 Outpatient R URIAH KERRY [facility] [id number] Univers 14:40:00 14:40:00 ity of [facility] [facility] 2020-06-08 2020-06-08 Nurse Nurse, Gaudencio Gloria 1.2.84 0.114 [id number] Univers 13:56:21 14:16:21 Visit CollinsKerry Rebeca Pediatric 350.1.13.10 [place] [phone] [address] 2020-06-01 2020-06-01 Outpatient R MELIZA [facility] [id number] Univers 10:40:00 10:40:00 , SUSAN locke [facility] 2020-05-30 2020-05-30 Office Meliza Gloria 1.2.840.114 [id number] Univers 15:50:39 17:01:06 Visit , Susan Pediatric 350.1.13.10 ity of [place] [phone] [address] 2020-05-30 2020-05-30 Outpatient R [facility] [id number] Univers 16:00:00 16:00:00 , SUSAN kay y of [facility] 2020-05-25 2020-05-25 Kerry Butterfield 1.2.840.114 [id number] Univers 00:00:00 00:00:00 Ali Pediatric 350.1.13.10 [place] [phone] [address] 2020-05-25 2020-05-25 Kerry Butterfield 1.2.840.114 [id number] Univers 00:00:00 00:00:00 Ali Pediatric 350.1.13.10 it[place] [phone] [address] 2020-04-16 2020-04-16 Telephone [facility] 1.2.840.114 [id number] Univers 00:00:00 00:00:00 Tyler Inman 350.1.13.10 i ty of [place] [phone] [place] [address] [place] [address] 2020-04-10 2020-04-10 Nurse Nurse, [facility] 1.2.840.114 [id number] Univers 14:03:44 15:24:29 Visit Rabia Sanchez 350.1.13.10 ity of [place] [phone] [place] [address] [place] [address] 2020-04-10 2020-04-10 Outpatient R [facility] [id number] Univers 14:30:00 14:30:00 ity of [facility] 2020-04-09 2020-04-09 Telephone Meryl [facility] 1.2.857.430 [id number] Univers 00:00:00 00:00:00 Mine Inman 350.1.13.10 ity of [place] [phone] [place] [address] [place] [address] 2020-04-06 2020-04-06 Outpatient R MELIZA [facility] [id number] Univers 11:45:00 11:45:00 , SUSAN it y of [facility] 2020-04-04 2020-04-04 Telephone Adum, [facility] 1.2.334.992 [id number] Univers 00:00:00 00:00:00 Mine Inman 350.1.13.10 ity of [place] [phone] [facility] 134 [facility] 2020-03-31 2020-03-31 Emergency [facility], [facility] 1.2.127.517 [id number] Univers 21:29:00 22:52:00 Bridget Inman 350.1.13.10 ity of [place] [phone] [facility] [address] [place] 2020-03-31 2020-03-31 Orders Doctor JESS 1.2.840.114 [id number] Univers 00:00:00 00:00:00 Only Unassigned, LEROY 350.1.13.10 ity of [place] [facility] 4.2.7.2.686 Vaibhav as [phone] [facility] [address] 2020-03-30 2020-03-30 Telephone Adum, [facility] [id number] Univers 00:00:00 00:00:00 Mine Inman 350.1.13.10 ity of [place] [phone] [facility] 2020-03-30 2020-03-30 Kerry Butterfield 1.2.840.114 [id number] Univers 00:00:00 00:00:00 Ali Pediatric 350.1.13.10 ity of [place] [phone] [facility] [address] [facility] 2020-03-28 2020-03-28 Nurse Nurse, [facility] 1.2.840.114 [id number] Univers 10:16:37 10:31:37 Visit Adum, Mine Inman 350.1.13.10 ity of [place] [phone] [place] dic[address] 2020-03-28 2020-03-28 Outpatient R [facility] [id number] Univers 10:30:00 10:30:00 ity of [facility] 2020-01-06 2020-01-06 Telephone [facility] 1.2.840.114 [id number] Univers 00:00:00 00:00:00 Tyler Henny 350.1.13.10 i [place] [phone] [address] 2019-12-27 2019-12-27 [facility]phone [facility] 1.2.115.880 [id number] Univers 00:00:00 00:00:00 Mine Inman 350.1.13.10 ity of [place] [phone] [address] 2019-12-26 2019-12-26 [facility] [id number] Univers 11:15:00 11:15:00 TYLER ity [facility] 2019-12-21 2019-12-21 Office [facility] 1.2.840.114 [id number] Univers 13:53:18 14:45:28 Visit Mine Inman 350.1.13.10 it[place] of [place] [phone] [address] 2019-12-21 2019-12-21 Outpatient R [facility] [id number] Univers 13:30:00 13:30:00 MINE ity of [facility] 2019-12-21 2019-12-21 Orders Doctor MERCADO 1.2.840.114 [id number] Univers 00:00:00 00:00:00 Only Unassigned, LEROY 350.1.13.10 ity of [place] [facility] 4.2.7.2.686 Vaibhav as [phone] [address] 2019-12-13 2019-12-13 [facility] 1.2.840.114 [id number] Univers 00:00:00 00:00:00 Tyler Henny 350.1.13.10 i ty of [place] [phone] [place] 134 [facility] 2019-12-06 2019-12-06 Refill Doctor Gloria 1.2.840.114 [id number] Univers 00:00:00 00:00:00 Unassigned, Pediatric 350.1.13.10 it[place] of [place] and [place] [phone] [address] 2019-12-06 2019-12-06 Refill Doctor LOPEZ 1.2.840.114 [id number] Univers 00:00:00 00:00:00 Unassigned, Hubbard 350.1.13.10 ity [place].2.[place] [phone] [facility] nal [address] [place] [address] 2019-12-06 2019-12-06 Refill Doctor Gloria 1.2.840.114 [id number] Univers 00:00:00 00:00:00 Unassigned, Pediatric 350.1.13.10 ity of [place] and [place] [phone] [address] 2019-12-03 2019-12-03 Refill Kerry Collins 1.2.840.114 [id number] Univers 00:00:00 00:00:00 Ali Pediatric 350.1.13.10 ity of [place] [phone] [address] 2019-12-01 2019-12-01 Emergency Maximo MSLEONEL 1.2.840.114 [id number] Univers 21:00:45 23:27:00 Gianni Inman 350.1.13.10 i ty of [place] 4[place].2.[place] [phone] [place] 8[address] [place] 2019-12-01 2019-12-01 Orders Doctor MERCADO 1.2.840.114 [id number] Univers 00:00:00 00:00:00 Only Unassigned, LEROY 350.1.13.10 ity of [place] [facility] 4.2.7.2.686 Vaibhav as [phone] [place] [address] [place] 2019-11-23 2019-11-23 Outpatient Maia GOODRICH, [facility] [id number] Univers 14:30:00 14:30:00 TYLER ity of [facility] 2019-11-01 2019-11-01 Kerry Butterfield 1.2.840.114 [id number] Univers 00:00:00 00:00:00 Ali Pediatric 350.1.13.10 ity of [place] [phone] [address] 2019-10-05 2019-10-05 Kerry Butterfield 1.2.840.114 [id number] Univers 00:00:00 00:00:00 Ali Pediatric 350.1.13.10 ity [place] [phone] [facility] 314 [facility] 2019-08-29 2019-09-01 Urgent Arcelia Morris 1.2.840.1 14 [id number] Univers 11:10:52 09:07:40 Care Unknown, Attending Pediatric 350.1.13. 10 it[place] [address] [phone] [facility] 370 [facility] 2019-09-01 2019-09-01 Patient Faizan Kumari 1.2.840.114 [id number] Univers 00:00:00 00:00:00 Secure Msg Michelle S Pediatric 350.1.13.10 ity of [place] [address] [phone] [facility] 225 [facility] 2019-09-01 2019-09-01 Telephone Faizan Morris 1.2.840.114 [id number] Univers 00:00:00 00:00:00 Arcelia Pediatric 350.1.13.10 ity of [place] [phone] Medi [address] 2019-08-29 2019-08-29 Outpatient R UNKNOWN, [facility] [id number] Univers 11:00:00 11:00:00 ATTENDING ity of [facility] 2019-08-26 2019-08-26 Telephone Kerry Collins 1.2.840.114 [id number] Univers 00:00:00 00:00:00 Ali Pediatric 350.1.13.10 ity of [place] [phone] [address] 2019-08-11 2019-08-11 Refill Kerry Collins 1.2.840.114 [id number] Univers 00:00:00 00:00:00 Ali Pediatric 350.1.13.10 ity of [place] [phone] [address] 2019-06-15 2019-06-15 RefKerry Stokes 1.2.840.114 [id number] Univers 00:00:00 00:00:00 Ali Pediatric 350.1.13.10 ity of [place] [phone] [address] 2019-05-13 2019-05-13 Patient Doctor [facility] 1.2.840.114 [id number] Univers 00:00:00 00:00:00 Secure Msg Unassigned, Henny 350.1.13.10 ity of [place] [phone] [facility] 134 [facility] 2019-02-01 2019-02-01 Patient JESS Harris 1.2.840.114 [id number] Univers 00:00:00 00:00:00 Outreach Holly HARPER 350.1.13.10 ity of [facility] 4.2.7.2.686 Vaibhav as [phone] [place] 879172 [place] 2019-01-06 2019-01-06 Office [facility] 1.2.779.203 [id number] Univers 11:22:10 11:52:10 Visit Cyrus CISNEROS 350.1.13.10 ity of [place] AT [phone] [place] re[place] BO[place] 198 [facility] 2019-01-05 2019-01-05 Abstract [facility] 1.2.840.114 [id number] Univers 00:00:00 00:00:00 [place] SPECIALTY 350.1.13.10 ity [facility] [place]2.7.2.[place] AT [phone] [place] 198 [facility] 2018-12-27 2018-12-27 Telephone [facility] 1.2.840.114 [id number] Univers 00:00:00 00:00:00 Tyler Inman 350.1.13.10 i ty of [place] [phone] [facility] nal [address] [place] [address] 2018-12-21 2018-12-21 Patient JESS Harris 1.2.840.114 [id number] Univers 00:00:00 00:00:00 Outreach Holly HARPER 350.1.13.10 ity of [facility] 4.2.7.2.686 Vaibhav as [phone] [address] 2018-12-13 2018-12-13 Telephone [facility] 1.2.840.114 [id number] Univers 00:00:00 00:00:00 Tyler Inman 350.1.13.10 i ty of [place] [phone] [address] 2018-12-10 2018-12-10 Telephone [facility] 1.2.840.114 [id number] Univers 00:00:00 00:00:00 Tyler Inman 350.1.13.10 i ty [place] [phone] [address] 2018-10-15 2018-10-15 Emergency E [facility] [id number] 15 [facility] [place] 02:31:00 03:40:00 MATT Beasley [facility] 2018-10-01 2018-10-01 Outpatient C [facility] RAD [id number] [address] [place] 08:05:00 23:59:00 [facility] Results Test Description Test Time Test Comments Results Result Comments Source POCT TEST 2021-11-27 14:40:00 Test Item Value Reference Range Interpretation Comme nts POCT PREG (test code = 1605) Negative On board controls acceptable with C Line (test code = 3574) Yes POCT PREG LOT # (test code = 3575) POCT PREG TEST DATE (test code = 3576) [id number] 14:40:00 Test Item Value Reference Range Interpretation Comments POCT PREG (test code = 1605) Negative On board controls acceptable with C Yes Line (test code = 3574) POCT PREG LOT # (test code = 3575) POCT PREG TEST DATE (test code = 3576) [facility]VIS WITH [id number] 08:51:45EXAM: CT ABDOMEN AND PELVIS WITH CONTRAST.LOCATION: D4.HISTORY: [id number]: Disorder of [id number]: Benign neoplasm of colon.COMPARISON:None.TECHNIQUE:CT abdomen and pelvis [...]
[2022-02-28] MEDS ORDERED: LIDOCAINE 1% MPF 30 ML VIAL ONE (22:49)
[2022-02-28 22:59] LABS: Urine Blood 1+ (Negative); Urine Glucose Negative (Negative); Urine Protein Negative (Negative)
--- NOTE | 2022-02-28 23:57 | ER ---
Nurse's Notes [facility] Name: Tg Quarles Age: 42 yrs Sex: Female : 1980 Arrival Date: 02/28/2022 Time: 22:20 Bed 5 Private MD: Diagnosis: Cutaneous abscess of buttock;Cutaneous abscess of other sites-pelvis Presentation: 02/28 22:32 Chief complaint: Left groin abscess x 3 days. Coronavirus screen: At this time, the hb client does not indicate any symptoms associated with coronavirus-19. Ebola Screen: No symptoms or risks identified at this time. Initial Sepsis Screen: Does the patient meet any 2 criteria? No. Patient's initial sepsis screen is negative. Does the patient have a suspected source of infection? No. Patient's initial sepsis screen is negative. Risk Assessment: Do you want to hurt yourself or someone else? Patient reports no desire to harm self or others. Onset of symptoms was February 25, 2022. 22:32 Method Of Arrival: Ambulatory hb 22:32 Acuity: JULIENNE 4 hb Triage Assessment: 22:36 General: Appears in no apparent distress. Behavior is calm, cooperative. Neuro: Level hb of Consciousness is awake, alert, obeys commands, Oriented to person, place, time, situation. Cardiovascular: Patient's skin is warm and dry. Respiratory: Respiratory effort is even, unlabored, Respiratory pattern is regular, symmetrical. 22:58 Pain: Complains of pain in L groin Pain currently is 2 out of 10 on a pain scale. at ke1 worst was 2 out of 10 on a pain scale. level that patient reports is acceptable is 5 out of 10 on a pain scale. Historical: - Allergies: 22:36 Sulfa (Sulfonamide Antibiotics); hb 22:36 tramadol; hb - PMHx: 22:36 Anemia; GERD; Hypertension; UTI; hb - PSHx: 22:36 Cholecystectomy; right shoulder; hb - Immunization history:: Adult Immunizations up to date. - Social history:: Smoking status: Patient denies any tobacco usage or history of. Screenin:55 Abuse screen: Denies threats or abuse. Nutritional screening: No deficits noted. ke1 Tuberculosis screening: No symptoms or risk factors identified. Fall Risk None identified. Assessment: 03/01 00:12 Reassessment: Patient and/or family updated on plan of care and expected duration. Pain vc1 level reassessed. Patient is alert, oriented x 3, equal unlabored respirations, skin warm/dry/pink. Patient states feeling better. Patient states symptoms have improved. Vital Signs: 02/28 22:32 BP 109 / 93; Pulse 88; Resp 18; Temp 98.4; Pulse Ox 100% on R/A; Weight 111.58 kg; hb Height 6 ft. 2 in. (187.96 cm); Pain 10; 22:32 Body Mass Index 31.58 (111.58 kg, 187.96 cm) hb ED Course: 22:20 Patient arrived in ED. ag3 22:32 Arm band placed on left wrist. hb 22:34 Triage completed. hb 22:41 Irish [facility]oms [facility]NP-C [facility] ms3 22:41 Moiz Zimmerman DO is Attending Physician. ms3 22:45 Kendra Brunson RN is Primary Nurse. ke1 22:57 Placed in gown. Bed in low position. Call light in reach. ke1 03/01 00:10 Assist provider with I \T\ D: of an abscess on. vc1 00:11 Assist provider with I \T\ D: of an abscess on right buttock and groin Set up I\T\D tray. vc 1 Performed by Irish BLAND Patient tolerated well. Patient did not have IV access during this emergency room visit. Administered Medications: 00:05 Drug: Cipro (ciprofloxacin) 500 mg Route: PO; vc1 00:06 Follow up: Response: No adverse reaction; Medication administered at discharge. vc1 00:05 Drug: Motrin (ibuprofen) 800 mg Route: PO; vc1 00:05 Follow up: Response: No adverse reaction; Medication administered at discharge. vc1 00:06 Drug: Doxycycline 100 mg Route: PO; vc1 00:06 Follow up: Response: No adverse reaction; Medication administered at discharge. vc1 Medication: 00:12 VIS not applicable for this client. vc1 Outcome: 02/28 23:56 Discharge ordered by MD. rao 03/01 00:12 Discharged to home ambulatory. vc1 Condition: good Discharge instructions given to patient, Instructed on discharge instructions, follow up and referral plans. medication usage, Demonstrated understanding of instructions, follow-up care, medications, Prescriptions given X 4. 00:12 Patient left the ED. vc1 Signatures: Irish Ramos, SUBSTANCE ADDICTION COORDINATOR-C SUBSTANCE ADDICTION COORDINATOR-Csnw Edilma Devine, RN RN Kym Antonio ag3 Moiz Zimmerman, DO [place] ms3 Kary Xiao RN RN vc1 Kendra Brunson RN RN ke1
--- NOTE | 2022-02-28 23:57 | EDPHYS ---
Physician Documentation [facility] Name: Tg Quarles Age: 42 yrs Sex: Female : 1980 Arrival Date: 02/28/2022 Time: 22:20 Bed 5 Private MD: ED Physician Moiz Zimmerman HPI: 02/28 23:52 This 42 yrs old Female presents to ER via Ambulatory with complaints of Abscess. snw 23:52 The patient presents with an abscess of the pelvis and buttock. Description: well snw demarcated, erythematous, swollen, warm. Onset: The symptoms/episode began/occurred gradually. Possible cause(s): ingrown hair. Associated signs and symptoms: Pertinent positives: headache. Severity of symptoms: At their worst the symptoms were moderate. The patient has experienced similar episodes in the past. The patient has been recently seen by a physician: currently on cipro for a UTI. Historical: - Allergies: 22:36 Sulfa (Sulfonamide Antibiotics); hb 22:36 tramadol; hb - PMHx: 22:36 Anemia; GERD; Hypertension; UTI; hb - PSHx: 22:36 Cholecystectomy; right shoulder; hb - Immunization history:: Adult Immunizations up to date. - Social history:: Smoking status: Patient denies any tobacco usage or history of. ROS: 23:52 Eyes: Negative for injury, pain, redness, and discharge, ENT: Negative for injury, snw pain, and discharge, Neck: Negative for injury, pain, and swelling, Cardiovascular: Negative for chest pain, palpitations, and edema, Respiratory: Negative for shortness of breath, cough, wheezing, and pleuritic chest pain, Abdomen/GI: Negative for abdominal pain, nausea, vomiting, diarrhea, and constipation, Back: Negative for injury and pain, : Negative for injury, bleeding, discharge, and swelling, MS/Extremity: Negative for injury and deformity, Neuro: Negative for headache, weakness, numbness, tingling, and seizure. 23:52 Constitutional: Positive for body aches, fatigue, malaise. 23:52 Skin: Positive for abscess, of the groin, and a smaller area to right buttock. Exam: 23:50 Constitutional: This is a well developed, well nourished patient who is awake, alert, snw and in no acute distress. Head/Face: Normocephalic, atraumatic. Eyes: Pupils equal round and reactive to light, extra-ocular motions intact. Lids and lashes normal. Conjunctiva and sclera are non-icteric and not injected. Cornea within normal limits. Periorbital areas with no swelling, redness, or edema. Neck: Trachea midline, no thyromegaly or masses palpated, and no cervical lymphadenopathy. Supple, full range of motion without nuchal rigidity, or vertebral point tenderness. No Meningismus. Chest/axilla: Normal chest wall appearance and motion. Nontender with no deformity. No lesions are appreciated. Cardiovascular: Regular rate and rhythm with a normal S1 and S2. No gallops, murmurs, or rubs. Normal PMI, no JVD. No pulse deficits. Respiratory: Lungs have equal breath sounds bilaterally, clear to auscultation and percussion. No rales, rhonchi or wheezes noted. No increased work of breathing, no retractions or nasal flaring. Abdomen/GI: Soft, non-tender, with normal bowel sounds. No distension or tympany. No guarding or rebound. No evidence of tenderness throughout. Back: No spinal tenderness. No costovertebral tenderness. Full range of motion. MS/ Extremity: Pulses equal, no cyanosis. Neurovascular intact. Full, normal range of motion. Neuro: Awake and alert, GCS 15, oriented to person, place, time, and situation. Cranial nerves II-XII grossly intact. Motor strength 5/5 in all extremities. Sensory grossly intact. Cerebellar exam normal. Normal gait. 23:50 Skin: Appearance: normal except for affected area, abscess, that is moderate sized, of the groin, with induration, with surrounding cellulitis, that is very mild, Pt also has a right medial buttock abscess. Vital Signs: 22:32 BP 109 / 93; Pulse 88; Resp 18; Temp 98.4; Pulse Ox 100% on R/A; Weight 111.58 kg; hb Height 6 ft. 2 in. (187.96 cm); Pain 10/10; 22:32 Body Mass Index 31.58 (111.58 kg, 187.96 cm) hb Procedures: 23:54 I \T\ D: Incision and drainage was performed for an abscess of the left pelvis and right snw buttock Prepped with Betadine, Anesthetized with 5 ml's 1% Lidocaine. Incised with #10 blade. Drained moderate amount purulent fluid. serosanguinous fluid. Loculations removed. Abscess cavity explored. Packed with iodoform gauze, Dressing: sterile 4x4 gauze, the patient tolerated the procedure well. MDM: 23:06 Patient medically screened. snw 23:53 Data reviewed: vital signs, nurses notes. Data interpreted: Pulse oximetry: on room air snw is 100 %. Interpretation: normal. Counseling: I had a detailed discussion with the patient and/or guardian regarding: the historical points, exam findings, and any diagnostic results supporting the discharge/admit diagnosis, the presence of at least one elevated blood pressure reading (>120/80) during this emergency department visit, the need for outpatient follow up, to return to the emergency department if symptoms worsen or persist or if there are any questions or concerns that arise at home. Response to treatment: the patient's symptoms have markedly improved after treatment. Special discussion: Based on the history and exam findings, there is no indication for further emergent testing or inpatient evaluation. I discussed with the patient/guardian the need to see the primary care provider for further evaluation of the symptoms. 02/28 22:59 Order name: Urine Dipstick-Ancillary; Complete Time: 23:06 EDMS 02/28 23:00 Order name: Urine --Ancillary (enter results); Complete Time: 23:22 oe Administered Medications: 03/01 00:05 Drug: Cipro (ciprofloxacin) 500 mg Route: PO; vc1 00:06 Follow up: Response: No adverse reaction; Medication administered at discharge. vc1 00:05 Drug: Motrin (ibuprofen) 800 mg Route: PO; vc1 00:05 Follow up: Response: No adverse reaction; Medication administered at discharge. vc1 00:06 Drug: Doxycycline 100 mg Route: PO; vc1 00:06 Follow up: Response: No adverse reaction; Medication administered at discharge. vc1 Disposition: 04:58 Co-signature as Attending Physician, Moiz IVAN was immediately available onsite ms3 in the emergency department for consultation in the care of the patient. Disposition Summary: 02/28/22 23:56 Discharge Ordered Location: Home snw Condition: Stable snw Diagnosis - Cutaneous abscess of buttock snw - Cutaneous abscess of other sites - pelvis snw Followup: snw - With: Emergency Department - When: As needed - Reason: Worsening of condition Followup: snw - With: Private Physician - When: 5 - 6 days - Reason: Recheck today's complaints, Continuance of care, Re-evaluation by your physician Discharge Instructions: - Discharge Summary Sheet snw - Skin Abscess snw - Incision and Drainage snw - How to Take a Sitz Bath snw - Form - Blood Pressure Record Sheet snw Forms: - Medication Reconciliation Form snw - Thank You Letter snw - Antibiotic Education snw - Prescription Opioid Use snw Prescriptions: - Diflucan 150 mg Oral Tablet - take 1 tablet by ORAL route once wkly for 2 weeks Post completion of snw antibiotics; 2 tablet; Refills: 0, Product Selection Permitted - Doxycycline Hyclate 100 mg Oral Tablet - take 1 tablet by ORAL route every 12 hours; 20 tablet; Refills: 0, Product snw Selection Permitted - Cipro 500 mg Oral Tablet - take 1 tablet by ORAL route every 12 hours for 7 days; 14 tablet; Refills: 0, snw Product Selection Permitted - Tylenol-Codeine #3 300 mg-30 mg Oral - take 2 tablet by ORAL route every 6-8 hours; 18 tablet; Refills: 0, Product snw Selection Permitted Signatures: Dispatcher [employer] Irish Guallpa, SALES SUPPORT ADMINISTRATOR-C SALES SUPPORT ADMINISTRATOR-Csnw Edilma Devine, RN RN Moiz Zimmerman DO DO ms3 Kary Xiao RN RN vc1
[2022-03-01] MEDS ORDERED: CIPROFLOXACIN HCL 500 MG TAB ONE (00:03)
[2022-03-01] MEDS ORDERED: DOXYCYCLINE 100 MG CAP PO ONE (00:03)
[2022-03-01] MEDS ORDERED: IBUPROFEN 400 MG TAB ONE (00:03)
[2022-03-01 00:35] VITALS: BP 109/93; TEMP 98.4; O2SAT 100
== END 2022-03-01 00:12 | disposition home or self-care (01) ==
LOC: ER 22:17
PROC: 0J990ZZ Drainage of Buttock Subcutaneous Tissue and Fascia, Open Approach (ICD-10-PCS; principal; 2022-02-28)
PROC: 0J9C0ZZ Drainage of Pelvic Region Subcutaneous Tissue and Fascia, Open Approach (ICD-10-PCS; 2022-02-28)
DX: L02.31 Cutaneous abscess of buttock (principal); L02.818 Cutaneous abscess of other sites; Z88.2 Allergy status to sulfonamides; I10 Essential (primary) hypertension; D64.9 Anemia, unspecified
CPT/HCPCS: 81003; 81025; 99283

== ENCOUNTER 2022-07-10 23:48 | Emergency (ER) | payer OTHER ==
--- OUTSIDE RECORDS SUMMARY | 2022-07-10 23:52 | XMS REPORT | Continuity of Care Document ---
:1980 Author Organization [facility] t Address [address] [place] [address] Care Team Providers Name Role Phone Susan Haider MD Primary Care Physician [phone] SUSAN HAIDER Attending Clinician Unavailable DUNG SHAHID Attending Clinician Unavailable Susan Haider MD Attending Clinician [phone] Doctor Unassigned, [place] Attending Clinician Unavailable Silas Martins MD Attending Clinician SILAS MARTINS Attending Clinician Unavailable TYLER GOODRICH Attending Clinician Unavailable Stefanie Abarca MA Attending Clinician Unavailable Rabia Sanchez MD Attending Clinician RABIA SANCHEZ Attending Clinician Unavailable Tyler Goodrich PA-C Attending Clinician Pob, [facility] Attending Clinician Unavailable MINE SHETH Attending Clinician Unavailable ELOY ROLAND Attending Clinician Unavailable Alan Conde MD Attending Clinician ALAN CONDE Attending Clinician Unavailable Arcelia Qiu Attending Clinician ARCELIA MORRIS Attending Clinician Unavailable Kerry Collins PA-C Attending Clinician LORENA SALGADO Attending Clinician Unavailable Vy REARDON, Rebeca Johnston Attending Clinician Jamie CAMARILLO, Yves Bañuelos Attending Clinician KERRY COLLINS Attending Clinician Unavailable Nurse, Gaudencio Rawls Attending Clinician Unavailable Nurse, [facility] Attending Clinician Unavailable Meryl REARDON, Mine Gonzalez Attending Clinician Vonda PLANT MAINTENANCE ENGINEER, Bridget G Attending Clinician Maximo MEDINAP, Gianni B Attending Clinician Unknown, Attending Attending Clinician Unavailable Quoc IRRIGATION SUPERVISOR, Michelle S Attending Clinician Unavailable UNKNOWN, ATTENDING Attending Clinician Unavailable Steven SHELL, Holly Nunez Attending Clinician Unavailable Fransico REARDON, Cyrus P Attending Clinician Melissa REARDON, [place] Nunez Attending Clinician DR MATT MCLAUGHLIN Attending Clinician Unavailable LORENA GREER Attending Clinician Unavailable DR MATT MCLAUGHLIN Admitting Clinician Unavailable LORENA GREER Admitting Clinician Unavailable Payers Payer Name Policy Type Policy Number Effective Date Expiration Date S dioni [facility] [id number] 2017 00:00:00 Problems Condition Condition Condition Status Onset Resolution Last Treating Co mments Source Name Details Category Date Date Treatment Clinician Date Essential Essential Disease Active Uni vers hypertensi hypertensi 5-03 it y of on on 00:00: [address] History of History of Disease Active 2020-0 U nivers trichomona trichomona 8-05 it y of l l 00:00: [place] vaginitis vaginitis [address] [place] [address] Trichomona Trichomona Disease Active 2019- U nivers l l 7-17 ity of vulvovagin [place] [address] [place] [address] BV BV Disease Active 2019 Univers (bacterial (bacterial 7-17 it y of vaginosis) vaginosis[place] [address] [place] [address] Obesity Obesity Disease Active 2019- Univers (BMI (BMI 7-08 ity of 30-39.9) 30-39.9) 00:00: [address] Skin yeast Skin yeast Disease Active 2015-0 U nivers infection infection 7-18 ity of 00:00: [place] [address] Medical Branch Screen for Screen for Disease Active U nivers STD STD 7-18 ity of (sexually ([place]ually [place] transmit[place] transmitte 00 Me dical d disease) d disease) Br anch Depo Depo Disease Active Univers contracept contracept 7-18 it y of ion ion 00:00: [place] [address] Medical [place] Pain Pain Disease Active Univers pelvic pelvic 2-15 ity of 00:00: [address] Surveillan Surveillan Disease Active U nivers ce of ce of 2-15 ity of previously [place] prescribed prescribed 00 [place] dical contracept contracept Br anch sosa method sosa method Irregular Irregular Disease Active Uni vers menstrual menstrual 2-15 ity of cycle cycle 00:00: [address] Well woman Well woman Disease Active [...] 2-15 it y of adult adult 00:00: [address] Branch Allergies, Adverse Reactions, Alerts Allergy Allergy Status Severity Reaction(s) Onset Inactive Treating Comm ents Source Name Type Date Date Clinician TRAMADOL DRUG Active N/V Univers INGREDI 2-17 ity of 00:00: [place] [facility] Tramadol Propensi Active Nausea Univer s ty to and/or 2-17 ity of adverse Vomiting 00:00: [place] reaction 00 Medical s Branch Sulfa Propensi Active Hives Univers (Sulfona ty to 6-13 ity of mide adverse 00:00: [place] Antibiot reaction 00 Medica l ics) s Branch SULFA Drug Active Hives Univers (SULFONA Class 6-13 ity of MIDE 00:00: [place] ANTIBIOT 00 Medical ICS) Branch Social History Social Habit Start Date Stop Date Quantity Comments Source History [facility] o f Alcohol Comment [place] Med ical Branch History of Cigarette Smoker [facility] ty of tobacco use [facility] Exposure to 2022-06-21 2022-07-01 Not sure [facility] SARS-CoV-2 00:00:00 11:01:00 [facility] (event) Branch Alcohol intake 2022-07-01 2022-07-01 Ex-drinker [facility] 00:00:00 00:00:00 (finding) [facility] Tobacco use and 2021-11-27 2021-11-27 Smokeless tobacco Un iversity of exposure 00:00:00 00:00:00 non-user [place] [facility] History [facility] 2019-12-21 2019-12-21 2 University o f Alcohol Frequency 00:00:00 00:00:00 [place] M edical Branch History [facility] 2019-12-21 2019-12-21 [address] [place] o f Alcohol Std 00:00:00 00:00:00 [place] Medical Drinks Branch History [facility] 2019-12-21 2019-12-21 [address] [place] o f Alcohol Binge 00:00:00 00:00:00 [place] Medic al Branch Sex [birth year] Universit y of 00:00:00 00:00:00 [facility] Smoking Status Start Date Stop Date Source Occasional tobacco smoker 2021-11-27 00:00:00 Un iversity of [facility] Medications Ordered Filled Start Stop Current Ordering Indication Dosage Frequency Signature Comments Components Source Medication Medication Date Date Medication? Clinician (SIG) Name Name metroNIDAZO 2022- Yes [id number] 500mg Take 1 Univers LE 500 mg 07-03 tablet by ity of tablet 00:00: 05:59 mouth in [place] 00 :00 the Medical morning Branch and 1 tablet in the evening. Do all this for 7 days. clotrimazol 2022- Yes [id number] Apply to [facility] e-betametha 07-01 area(s) 2 it y of sone cream 00:00: 05:59 (two) [place] 00 :00 times Medical daily for Branch 14 days. clotrimazol 2022- Yes [id number] Apply to [facility] e-betametha 07-01 area(s) 2 it y of sone cream 00:00: 05:59 (two) [place] 00 :00 times Medical daily for Branch 14 days. clotrimazol 2022- Yes [id number] Apply to [facility] e-betametha 07-01 area(s) 2 it y of sone cream 00:00: 05:59 (two) [place] 00 :00 times Medical daily for Branch 14 days. clotrimazol 2022- Yes [id number] Apply to [facility] e-betametha 07-01 area(s) 2 it y of sone cream 00:00: 05:59 (two) [place] 00 :00 times Medical daily for Branch 14 days. clotrimazol 2022- Yes [id number] Apply to [facility] e-betametha 07-01 area(s) 2 it y of sone cream 00:00: 05:59 (two) [place] 00 :00 times Medical daily for Branch 14 days. fluconazole 2022- Yes [id number] 200mg Take 1 Univers 200 mg 2-14 -15 tablet by ity of tablet 00:00: 05:59 [place] 00 :[place] now for 1 Medical dose. [place] fluconazole 2022- Yes [id number] 200mg Take 1 Univers 200 mg 2-14 -15 tablet by ity of tablet 00:00: 05:[place] 00 [place] now for 1 Medical dose. Branch fluconazole 2022- No [id number] 200mg Take 1 Univers 200 mg 2-14 -15 tablet by ity of tablet 00:00: 05:[place] 00 :[place] now for 1 Medical dose. Branch fluconazole 2022- No [id number] 200mg Take 1 Univers 200 mg 2-14 -15 tablet by ity of tablet 00:00: 05:59 [place] 00 :[place] now for 1 Medical dose. [place] METOPROLOL Yes [id number] Take 1/2 Univers TARTRATE 25 2-08 (one-half) it y of mg tablet 00:00: tablet by [place] 00 mouth once Medical daily [place] METOPROLOL 2022-0 Yes [id number] Take 1/2 Univers TARTRATE 25 2-08 (one-half) it y of mg tablet 00:00: tablet by [place] 00 mouth once Medical daily Branch METOPROLOL 2022-0 Yes [id number] Take 1/2 Univers TARTRATE 25 2-08 (one-half) it y of mg tablet 00:00: tablet by [place] 00 mouth once Medical daily Branch METOPROLOL 2022-0 Yes [id number] Take 1/2 Univers TARTRATE 25 2-08 (one-half) it y of mg tablet 00:00: tablet by [place] 00 mouth once Medical daily Branch METOPROLOL 2022-0 Yes [id number] Take 1/2 Univers TARTRATE 25 2-08 (one-half) it y of mg tablet 00:00: tablet by [place] 00 mouth once Medical daily Branch METOPROLOL 2022-0 Yes [id number] Take 1/2 Univers TARTRATE 25 2-08 (one-half) it y of mg tablet 00:00: tablet by [place] 00 mouth once Medical daily Branch METOPROLOL 2022-0 Yes [id number] Take 1/2 Univers TARTRATE 25 2-08 (one-half) it y of mg tablet 00:00: tablet by [place] 00 mouth once Medical daily Branch miconazole 2021-0 Yes [id number] 100mg Insert 1 Univers 100 mg 7-06 Suppositor ity of vaginal 00:00: y into [place] suppository 00 vagina at [facility] bedtime. Branch miSOPROStoL 2021-0 Yes [id number] Take one Univers 200 mcg 7-06 tablet ity of tablet 00:00: night [place] 00 before Medical procedure, Branch then take one tablet morning of procedure miconazole 2021-0 Yes [id number] 100mg Insert 1 Univers 100 mg 7-06 Suppositor ity of vaginal 00:00: y into [place] suppository 00 vagina at [facility] bedtime. Branch miSOPROStoL 2021-0 Yes [id number] Take one Univers 200 mcg 7-06 tablet ity of tablet 00:00: night [place] 00 before Medical procedure, Branch then take one tablet morning of procedure miconazole 2021-0 Yes [id number] 100mg Insert 1 Univers 100 mg 7-06 Suppositor ity of vaginal 00:00: y into [place] suppository 00 vagina at [facility] bedtime. Branch miSOPROStoL 2021- Yes [id number] Take one Univers 200 mcg 7-06 tablet ity of tablet 00:00: night [place] 00 before Medical procedure, Branch then take one tablet morning of procedure miconazole 2021-0 Yes [id number] 100mg Insert 1 Univers 100 mg 7-06 Suppositor ity of vaginal 00:00: y into [place] suppository 00 vagina at [facility] bedtime. Branch miSOPROStoL 2021-0 Yes [id number] Take one Univers 200 mcg 7-06 tablet ity of tablet 00:00: night [place] 00 before Medical procedure, Branch then take one tablet morning of procedure miconazole 2021-0 Yes [id number] 100mg Insert 1 Univers 100 mg 7-06 Suppositor ity of vaginal 00:00: y into [place] suppository 00 vagina at [facility] bedtime. Branch miSOPROStoL Yes [id number] Take one Univers 200 mcg 7-06 tablet ity of tablet 00:00: night [place] 00 before Medical procedure, Branch then take one tablet morning of procedure miconazole 2021-0 Yes [id number] 100mg Insert 1 Univers 100 mg 7-06 Suppositor ity of vaginal 00:00: y into [place] suppository 00 vagina at [facility] bedtime. Branch miSOPROStoL Yes [id number] Take one Univers 200 mcg 7-06 tablet ity of tablet 00:00: night [place] 00 before Medical procedure, Branch then take one tablet morning of procedure miconazole 2021-2022- No [id number] 100mg Insert 1 Univers 100 mg 7-10 17-14 Suppositor ity of vaginal 00:00: 00:00 y into [place] suppository 00 :00 vagina at [facility] bedtime. Branch miSOPROStoL 3- No [id number] Take one Univers 200 mcg 7-06 02-14 tablet ity of tablet 00:00: 00:00 night [place] 00 :00 before Medical procedure, Branch then take one tablet morning of procedure miconazole 2021-2022- No [id number] 100mg Insert 1 Univers 100 mg 7-06 -14 Suppositor ity of vaginal 00:00: 00:00 y into [place] suppository 00 :00 vagina at [facility] bedtime. Branch miSOPROStoL 2022- No [id number] Take one Univers 200 mcg 11-20 tablet ity of tablet 00:00: 00:00 night [place] 00 :00 before Medical procedure, Branch then take one tablet morning of procedure miconazole 2022- No [id number] 100mg Insert 1 Univers 100 mg 11-20 Suppositor ity of vaginal 00:00: 00:00 y into [place] suppository 00 :00 vagina at [facility] bedtime. Branch miSOPROStoL 2022- No [id number] Take one Univers 200 mcg 11-20 tablet ity of tablet 00:00: 00:00 night [place] 00 :00 before Medical procedure, Branch then take one tablet morning of procedure miconazole 2021-2022- No [id number] 100mg Insert 1 Univers 100 mg 11-20 Suppositor ity of vaginal 00:00: 00:00 y into [place] suppository 00 :00 vagina at [facility] bedtime. Branch miSOPROStoL 2022- No [id number] Take one Univers 200 mcg 11-20 tablet ity of tablet 00:00: 00:00 night [place] 00 :00 before Medical procedure, Branch then take one tablet morning of procedure fluconazole 0 Yes [id number] 150mg Take 1 Univers 150 mg 6-20 tablet by ity of tablet 00:00: mouth [place] 00 every 72 Medical ([facility] Branch wo) hours. fluconazole 2021-0 Yes [id number] 150mg Take 1 Univers 150 mg 6-20 tablet by ity of tablet 00:00: mouth [place] 00 every 72 Medical ([facility]t Branch wo) hours. fluconazole 2021-0 Yes [id number] 150mg Take 1 Univers 150 mg 6-20 tablet by ity of tablet 00:00: mouth [place] 00 every 72 Medical (seventy-t Branch wo) hours. fluconazole 2021-0 Yes [id number] 150mg Take 1 Univers 150 mg 6-20 tablet by ity of tablet 00:00: mouth [place] 00 every 72 Medical ([facility] Branch wo) hours. fluconazole 2021-0 Yes [id number] 150mg Take 1 Univers 150 mg 6-20 tablet by ity of tablet 00:00: mouth [place] 00 every 72 Medical (seventy-t Branch wo) hours. fluconazole 2021-0 Yes [id number] 150mg Take 1 Univers 150 mg 6-20 tablet by ity of tablet 00:00: mouth [place] 00 every 72 Medical (seventy-t Branch wo) hours. fluconazole 2022- No [id number] 150mg Take 1 Univers 150 mg 6-20 02-14 tablet by ity of tablet 00:00: 00:00 mouth [place] 00 :00 every 72 Medical (seventy-t Branch wo) hours. fluconazole 2022- No [id number] 150mg Take 1 Univers 150 mg 6-20 02-14 tablet by ity of tablet 00:00: 00:00 mouth [place] 00 :00 every 72 Medical (seventy-t Branch wo) hours. fluconazole 2022- No [id number] 150mg Take 1 Univers 150 mg 6-20 02-14 tablet by ity of tablet 00:00: 00:00 mouth [place] 00 :00 every 72 Medical (seventy-t Branch wo) hours. fluconazole 2022- No [id number] 150mg Take 1 Univers 150 mg 6-20 02-14 tablet by ity of tablet 00:00: 00:00 mouth [place] 00 :00 every 72 Medical (seventy-t Branch wo) hours. metoprolol Yes [id number] 12.5mg Take 0.5 Univers tartrate 25 5-03 tablets by it y of mg tablet 00:00: mouth [place] 00 daily. [facility] Branch metoprolol Yes [id number] 12.5mg Take 0.5 Univers tartrate 25 5-03 tablets by it y of mg tablet 00:00: mouth [place] 00 daily. [facility] Branch metoprolol Yes [id number] 12.5mg Take 0.5 Univers tartrate 25 5-03 tablets by it y of mg tablet 00:00: mouth [place] 00 daily. [facility] Branch metoprolol Yes [id number] 12.5mg Take 0.5 Univers tartrate 25 5-03 tablets by it y of mg tablet 00:00: mouth [place] 00 daily. [facility] Branch metoprolol 3- No [id number] 12.5mg Take 0.5 Univers tartrate 25 5-03 02-08 tablets by i ty of mg tablet 00:00: 00:00 mouth [place] 00 :00 daily. [facility] Branch ferrous Yes [id number] 324mg Take 1 Un bruce sulfate 324 1-26 tablet by ity of mg (65 mg 00:00: mouth 2 [place] iron) EC 00 (two) Medical tablet times Branch daily with meals. ferrous Yes [id number] 324mg Take 1 Un bruce sulfate 324 1-26 tablet by ity of mg (65 mg 00:00: mouth 2 [place] iron) EC 00 (two) Medical tablet times Branch daily with meals. ferrous Yes [id number] 324mg Take 1 Un bruce sulfate 324 1-26 tablet by ity of mg (65 mg 00:00: mouth 2 [place] iron) EC 00 (two) Medical tablet times Branch daily with meals. ferrous Yes [id number] 324mg Take 1 Un burce sulfate 324 1-26 tablet by ity of mg (65 mg 00:00: mouth 2 [place] iron) EC 00 (two) Medical tablet times Branch daily with meals. ferrous Yes [id number] 324mg Take 1 Un bruce sulfate 324 1-26 tablet by ity of mg (65 mg 00:00: mouth 2 [place] iron) EC 00 (two) Medical tablet times Branch daily with meals. ferrous Yes [id number] 324mg Take 1 Un bruce sulfate 324 1-26 tablet by ity of mg (65 mg 00:00: mouth 2 [place] iron) EC 00 (two) Medical tablet times Branch daily with meals. ferrous 3- No [id number] 324mg Take 1 U nivers sulfate 324 1-26 02-14 tablet by it y of mg (65 mg 00:00: 00:00 [place] iron[place] EC 00 :00 (two) Medical tablet times Branch daily with meals. ferrous 3- No [id number] 324mg Take 1 U nivers sulfate 324 1-26 02-14 tablet by it y of mg (65 mg 00:00: 00:00 mouth 2 [place] iron) EC 00 :00 (two) Medical tablet times Branch daily with meals. ferrous 3- No [id number] 324mg Take 1 U nivers sulfate 324 1-26 02-14 tablet by it y of mg (65 mg 00:00: 00:00 mouth 2 [place] iron) EC 00 :00 (two) Medical tablet times Branch daily with meals. ferrous 2020-0 2023- No [id number] 324mg Take 1 U nivers sulfate 324 06-12 tablet by it y of mg (65 mg 00:00: 00:00 mouth 2 [place] iron) EC 00 :00 (two) Medical tablet times [place] daily with meals. omeprazole 2018-0 Yes Univers 40 mg 5-02 ity of capsule 00:00: [address] omeprazole 2019-0 Yes Univers 40 mg 5-02 ity of capsule 00:00: [address] omeprazole 2019-0 Yes Univers 40 mg 5-02 ity of capsule 00:00: [address] omeprazole 2019-0 Yes Univers 40 mg 5-02 ity of capsule 00:00: [address] omeprazole 2019-0 Yes Univers 40 mg 5-02 ity of capsule 00:00: [address] omeprazole 2019-0 Yes Univers 40 mg 5-02 ity of capsule 00:00: [address] omeprazole 2019-0 2023- No Univer s 40 mg 5-02 02-14 ity of capsule 00:00: 00:00 [place] 00 :00 Medical Branch omeprazole 2019-0 2023- No Univer s 40 mg 5-02 02-14 ity of capsule 00:00: 00:00 [place] 00 :00 Medical Branch omeprazole 2019-0 2023- No Univer s 40 mg 5-02 02-14 ity of capsule 00:00: 00:00 [place] 00 :00 Medical Branch omeprazole 2019-0 2023- No Univer s 40 mg 5-02 02-14 ity of capsule 00:00: 00:00 [place] 00 :00 [facility] Immunizations Ordered Filled Immunization Date Status Comments [facility] e Immunization Name Name Influenza Virus 2022-04-23 Completed Universit y of Vaccine Recomb Quad 00:00:00 [place] Medical IM, Preserv and ABX Branc h Free 18-64 YRS Influenza Virus 2022-04-23 Completed Universit y of Vaccine Recomb Quad 00:00:00 [place] Medical IM, Preserv and ABX Branc h Free 18-64 YRS Influenza Virus 2022-04-23 Completed Universit y of Vaccine Recomb Quad 00:00:00 [place] Medical IM, Preserv and ABX Branc h Free 18-64 YRS Influenza Virus 2022-04-23 Completed Universit y of Vaccine Recomb Quad 00:00:00 [place] Medical IM, Preserv and ABX Branc h Free 18-64 YRS Influenza Virus 2022-04-23 Completed Universit y of Vaccine Recomb Quad 00:00:00 [place] Medical IM, Preserv and ABX Branc h Free 18-64 YRS SARS-COV-2 COVID-19 2021-05-27 Completed Unive rsity of MODERNA 12+ YRS 00:00:00 [place] Med ical VACCINE Branch SARS-COV-2 COVID-19 2021-05-27 Completed Unive rsity of MODERNA 12+ YRS 00:00:00 [place] Med ical VACCINE Branch SARS-COV-2 COVID-19 2021-05-27 Completed Unive rsity of MODERNA 12+ YRS 00:00:00 [place] Med ical VACCINE Branch SARS-COV-2 COVID-19 2021-05-27 Completed Unive rsity of MODERNA 12+ YRS 00:00:00 [place] Med ical VACCINE Branch SARS-COV-2 COVID-19 2021-05-27 Completed Unive rsity of MODERNA 12+ YRS 00:00:00 [place] Med ical VACCINE Branch SARS-COV-2 COVID-19 2021-05-27 Completed Unive rsity of MODERNA 12+ YRS 00:00:00 [place] Med ical VACCINE Branch SARS-COV-2 COVID-19 2021-05-27 Completed Unive rsity of MODERNA 12+ YRS 00:00:00 [place] Med ical VACCINE Branch SARS-COV-2 COVID-19 2021-05-27 Completed Unive rsity of MODERNA 12+ YRS 00:00:00 [place] Med ical VACCINE Branch SARS-COV-2 COVID-19 2020-12-18 Completed Unive rsity of MODERNA 12+ YRS 00:00:00 [place] Med ical VACCINE Branch SARS-COV-2 COVID-19 2020-12-18 Completed Unive rsity of MODERNA 12+ YRS 00:00:00 [place] Med ical VACCINE Branch SARS-COV-2 COVID-19 2020-12-18 Completed Unive rsity of MODERNA 12+ YRS 00:00:00 [place] Med ical VACCINE Branch SARS-COV-2 COVID-19 2020-12-18 Completed Unive rsity of MODERNA 12+ YRS 00:00:00 [place] Med ical VACCINE Branch SARS-COV-2 COVID-19 2020-12-18 Completed Unive rsity of MODERNA 12+ YRS 00:00:00 [place] Med ical VACCINE Branch SARS-COV-2 COVID-19 2020-12-18 Completed Unive rsity of MODERNA 12+ YRS 00:00:00 [place] Med ical VACCINE Branch SARS-COV-2 COVID-19 2020-12-18 Completed Unive rsity of MODERNA 12+ YRS 00:00:00 [place] Med ical VACCINE Branch SARS-COV-2 COVID-19 2020-12-18 Completed Unive rsity of MODERNA 12+ YRS 00:00:00 [place] Med ical VACCINE Branch Influenza Virus 2020-05-30 Completed Universit y [...] 00:00:00 [place] [facility] 6+ MO Branch TDAP 2015-07-02 Completed University of 00:00:00 [facility] TDAP 2015-07-02 Completed University of 00:00:00 [place] [facility] [place] TDAP 2015-07-02 Completed University of 00:00:00 [place] [facility] [place] TDAP 2015-07-02 Completed University of 00:00:00 [place] [facility] [place] TDAP 2015-07-02 Completed University of 00:00:00 [place] [facility] [place] TDAP 2015-07-02 Completed University of 00:00:00 [place] [facility] [place] TDAP 2015-07-02 Completed University of 00:00:00 [facility] TDAP 2015-07-02 Completed University of 00:00:00 [facility] TDAP 2015-07-02 Completed University of 00:00:00 [facility] TDAP 2015-07-02 Completed University of 00:00:00 [facility] TDAP 2015-07-02 Completed University of 00:00:00 [place] [facility] Td 1996-12-28 Completed University of 00:00:00 [place] [facility] Td 1996-12-28 Completed University of 00:00:00 [place] [facility] Td 1996-12-28 Completed University of 00:00:00 [place] [facility] TD, NOS 1996-12-28 Completed University of 00:00:00 [place] [facility] TD, NOS 1996-12-28 Completed University of 00:00:00 [place] [facility] TD, NOS 1996-12-28 Completed University of 00:00:00 [place] [facility] TD, NOS 1996-12-28 Completed University of 00:00:00 [place] [facility] TD, NOS 1996-12-28 Completed University of 00:00:00 [place] [facility] TD, NOS 1996-12-28 Completed University of 00:00:00 [place] [facility] TD, NOS 1996-12-28 Completed University of 00:00:00 [facility] TD, NOS 1996-12-28 Completed University of 00:00:00 [facility] Vital Signs Vital Name Observation Time Observation Value Comments Source Systolic blood 2022-07-01 17:11:00 120 mm[Hg] Univer sity of pressure [facility] Diastolic blood 2022-07-01 17:11:00 81 mm[Hg] Unive rsity of pressure [facility] Heart rate 2022-07-01 17:11:00 110 /min [facility] Body temperature 2022-07-01 17:11:[address] [facility] Respiratory rate 2022-07-01 17:11:00 20 /min [facility] Body height 2022-07-01 17:11:00 188 cm [facility] Body weight 2022-07-01 17:11:00 103.375 kg [facility] BMI 2022-07-01 17:11:00 29.26 kg/m2 [facility] Oxygen saturation in 2022-07-01 17:11:00 100 /min [facility] Arterial blood by [facility] Pulse oximetry Branch Systolic blood 2021-11-27 14:35:00 110 mm[Hg] Univer sity of pressure [facility] Diastolic blood 2021-11-27 14:35:00 75 mm[Hg] Unive rsity of [facility] Heart rate 2021-11-27 14:35:00 71 /min [facility] Body temperature 2021-11-27 14:35:00 37.11 Alysa Univ ersity [facility] Body height 2021-11-27 14:35:00 188 cm [facility] Body weight 2021-11-27 14:35:00 111.585 kg [facility] BMI 2021-11-27 14:35:00 31.58 kg/m2 [facility] Procedures Procedure Date / Time Performed Performing Clinician Sourc e POCT URINALYSIS 2022-07-01 17:50:00 [facility] URINE CULTURE 2022-07-01 17:45:00 [facility] GALV ONLY - VAGINAL 2022-07-01 17:45[facility] ACID TESTING ASSIGNMENT OF BENEFITS 2022-07-01 17:02:49 Doctor Unassigned, No [facility] DISCLOSURE AND 2021-11-27 05:01:00 Doctor Unassigned, No [facility] CONSENT, MEDICAL AND [facility] SURGICAL PROCEDURES POCT TEST 2021-11-27 00:00:00 Rabia Sanchez [facility] Encounters Start End Encounter Admission Attending Care Care Encounter Source Date/Time Date/Time Type Type Clinicians Facility Department ID 2021-03-17 Emergency [facility] [id number] Univers 07:42:49 ity [facility] 2021-03-16 Emergency [facility] [id number] Univers 05:35:26 ity [facility] 2021-03-15 Emergency [facility] [id number] Univers 07:15:04 ity [facility] 2022-08-05 2022-08-05 Outpatient R MELIZA [facility] [id number] Univers 11:00:00 11:00:00 SUSAN [facility] 2022-07-03 2022-07-03 Thompson Haider [facility] 1.2.840.114 [id number] Univers 00:00:00 00:00:00 Management , Susan GROSS 350.1.13.10 ity of [place] 4.2.7.2.686 Vaibhav as APRIL?BLEA [phone] [address] MEDICAL OFFICE BUILDING 2022-07-01 2022-07-01 Outpatient R [facility] [id number] Univers 11:15:00 11:41:57 , SUSAN it y of [facility] 2022-07-01 2022-07-01 Office [facility] 1.2.840.114 [id number] Univers 11:15:00 11:41:57 Visit , Susan GROSS 350.1.13.10 ity of [place] 4.2.7.2.686 Vaibhav as APRIL?BLEA [phone] [address] MEDICAL OFFICE BUILDING 2022-07-01 2022-07-01 Orders Doctor MERCADO 1.2.840.114 [id number] Univers 00:00:00 00:00:00 Only Unassigned, LEROY 350.1.13.10 ity of [place] [facility] 4.2.7.2.686 Vaibhav as [phone] [place] [address] [address] 2022-06-25 2022-06-25 Outpatient R KLEBER [facility] [id number] Univers 11:00:00 11:00:00 , DUNG ity [facility] 2022-06-24 2022-06-24 Silas Ulloa 1.2.840.114 [id number] Univers 00:00:00 00:00:00 Y PEDIATRIC 350.1.13.10 [place] [phone] [facility] PRIMARY [address] CARE CLINIC 2022-06-19 2022-06-19 Outpatient R SILAS MARTINS [facility] [id number] Univers 14:30:00 14:30:00 ity [facility] 2022-06-05 2022-06-05 Outpatient R KP [facility] [id number] Univers 10:30:00 10:30:00 [facility]22-[facility]-032022-06-03 Case LEILA Abarca 1.2.840.114 [id number] Univers 00:00:00 00:00:00 Management Stefanie MERINO 350.1.13.10 ity of [place] [id number] [facility] [address] 2022-03-20 2022-03-20 Outpatient R MELIZA [facility] [id number] Univers 11:00:00 11:00:00 , SUSAN it y of [facility] 2021-11-27 2021-11-27 Office Laura [facility] 1.2.003.618 [id number] Univers 09:15:00 10:42:35 Visit Oleg INMAN 350.1.13.10 i ty of [place] [id number] [address] 2021-11-27 2021-11-27 Outpatient R LAURA [facility] [id number] Univers 09:15:00 10:42:35 ity of [facility] 2021-11-27 2021-11-27 Outpatient R LAURA [facility] [id number] Univers 09:15:00 09:15:00 ity of [facility] 2021-11-27 2021-11-27 Outpatient R LAURA [facility] [id number] Univers 09:15:00 09:15:00 ity of [facility] 2021-11-27 2021-11-27 Orders Doctor MERCADO 1.2.840.114 [id number] Univers 00:00:00 00:00:00 Only Unassigned, LEROY 350.1.13.10 ity of [place] [facility] 4.2.7.2.686 Vaibhav as [id number] [facility] [address] 2021-11-20 2021-11-20 Outpatient R KP [facility] [id number] Univers 10:45:00 11:09:12 TYLER ity [facility] 2021-11-20 2021-11-20 Office Kp [facility] 1.2.566.561 [id number] Univers 10:45:00 11:09:12 Visit Tyler INMAN 350.1.13.10 i ty [facility] 4.2.7.2.[place] [phone] Dc dical NAL [address] [facility] 2021-11-04 2021-11-04 Case [facility] 1.2.131.664 [id number] Univers 00:00:00 00:00:00 Management Tyler INMAN 350.1.13.10 ity of [place] [phone] Dc dical NAL [address] [facility] 2021-10-31 2021-10-31 Yarn Weigher Tj, Adc Lab Main [facility] 1.2.8 40.114 [id number] [facility] 12:00:00 12:15:00 Visit Tyler Goodrich 350.1.13.10 ity of [place] [id number] Dc dical [facility] [address] [facility] 2021-10-31 2021-10-31 Outpatient R KP [facility] [id number] Univers 10:15:00 11:15:11 TYLER [facility] 2021-10-31 2021-10-31 Office [facility] 1.2.766.296 [id number] Univers 10:15:00 11:15:11 Visit Tyler INMAN 350.1.13.10 i ty of [place] [phone] Dc dical NAL [address] [place] [address] 2021-10-31 2021-10-31 Outpatient R KP [facility] [id number] Univers 10:15:00 11:15:11 TYLER julito [facility] 2021-10-24 2021-10-24 Outpatient R KP [facility] [id number] Univers 11:15:00 11:15:00 TYLER [facility] 2021-10-08 2021-10-08 Outpatient R MERYL [facility] [id number] Univers 09:30:00 09:30:00 MINE vila [facility] 2021-09-18 2021-09-18 Telephone Silas Martins 1.2.840.114 [id number] Univers 00:00:00 00:00:00 Y PEDIATRIC 350.1.13.10 it[place] [id number] [address] 2021-09-17 2021-09-17 Office Silas Martins 1.2.840.114 [id number] Univers 13:15:00 13:48:45 Visit Y PEDIATRIC 350.1.13.10 ity of [place] [id number] [address] 2021-09-17 2021-09-17 Outpatient SILAS GUEVARA [facility] [id number] Univers 13:15:00 13:48:45 ity of [facility] 2021-09-17 2021-09-17 Outpatient SILAS GUEVARA [facility] [id number] Univers 13:15:00 13:15:00 ity of [facility] 2021-09-08 2021-09-08 Refill Meliza GLORIA 1.2.840.114 [id number] Univers 00:00:00 00:00:00 , Susan PEDIATRIC 350.1.13.10 ity of [place] [id number] [address] 2021-08-26 2021-08-26 Outpatient Maia ROLAND [facility] [id number] Univers 08:45:00 08:45:00 ELOY ity [facility] 2021-08-08 2021-08-08 Telephone [facility] 1.2.840.114 [id number] Univers 00:00:00 00:00:00 Alan CISNEROS 350.1.13.10 ity of [facility] [place].2.7.2.[place] C[place] AT [phone] [address] 2021-07-30 2021-07-30 Outpatient [facility] [id number] Univers 00:00:00 00:00:00 ALAN vila [facility] 2021-07-16 2021-07-16 Outpatient R AMAYA [facility] [id number] Univers 16:51:18 23:59:00 ALAN vila [facility] 2021-07-16 2021-07-16 Hospital [facility] 1.2.739.213 [id number] Univers 16:51:18 23:59:00 Encounter Alan SPECIALTY 350.1.13.10 ity [facility] [place] AT [phone] Dc reid BOYER 809 [facility] 2021-07-16 2021-07-16 Office [facility] 1.2.840.114 [id number] Univers 15:50:00 16:00:00 Visit Alan SPECIALTY 350.1.13.10 ity [facility] [place]2.[place].2.[place] C[place] AT [phone] Dc sarahmarco a BOYER 198 [facility] 2021-07-16 2021-07-16 Outpatient R AMAYA [facility] [id number] Univers 15:50:00 15:50:00 ALAN vila [facility] 2021-05-28 2021-05-28 Outpatient R MERYL [facility] [id number] Univers 15:30:00 15:30:00 MINE julito [facility] 2021-05-21 2021-05-21 Outpatient R MELIZA [facility] [id number] Univers 11:00:00 11:00:00 , SUSAN locke of [facility] 2021-04-18 2021-04-18 Outpatient R MELIZA [facility] [id number] Univers 11:15:00 11:57:00 , SUSAN locke of [facility] 2021-04-18 2021-04-18 Office Meliza GLORIA 1.2.840.114 [id number] Univers 11:09:27 11:57:00 Visit , Susan PEDIATRIC 350.1.13.10 ity of [place] [id number] [address] [facility] 2021-04-18 2021-04-18 Outpatient R MELIZA [facility] [id number] Univers 11:15:00 11:15:00 , SUSAN it y of [facility] 2021-04-18 2021-04-18 Orders Doctor MERCADO 1.2.840.114 [id number] Univers 00:00:00 00:00:00 Only Unassigned, LEROY 350.1.13.10 ity of [place] [facility] 4.2.7.2.686 Vaibhav as [phone] [address] 2021-02-01 2021-02-01 Outpatient R MELIZA [facility] [id number] Univers 16:00:00 16:00:00 , SUSAN villanueva y of [facility] 2020-11-29 2020-11-29 Refill Meliza Gloria 1.2.840.114 [id number] 00:00:00 00:00:00 , Susan Pediatric 350.1.13.10 M s and 4.2.7.2.686 Adult [phone] [place] [address] Care [facility] 2020-11-29 2020-11-29 Refill Meliza Ratliffin 1.2.840.114 [id number] Univers 00:00:00 00:00:00 , Susan Pediatric 350.1.13.10 ity of [place] [id number] [address] 2020-11-16 2020-11-16 Refill Meliza Gloria 1.2.840.114 [id number] 00:00:00 00:00:00 , Susan Pediatric 350.1.13.10 M s and 4.2.7.2.686 Adult [id number] [place] [address] Care [facility] 2020-11-16 2020-11-16 Refill Meliza Ratliffin 1.2.840.114 [id number] Univers 00:00:00 00:00:00 , Susan Pediatric 350.1.13.10 ity of [place] and [place] [id number] [address] 2020-11-15 2020-11-15 Office Faizan Morris 1.2.840.114 [id number] 11:30:23 12:00:23 Visit Arcelia Pediatric 350.1.13.10 s and 4.2.7.2.686 Adult [phone] [address] 2020-11-15 2020-11-15 Office Faizan Morris 1.2.840.114 [id number] [facility] 11:30:23 12:00:23 Visit Arcelia Pediatric 350.1.13.10 ity of [place] [phone] [address] 2020-11-15 2020-11-15 Outpatient Maia MORRIS [facility] [id number] Univers 12:00:00 12:00:00 ARCELIA ity of [facility] 2020-11-14 2020-11-14 Telephone Kerry Collins 1.2.840.114 [id number] Univers 00:00:00 00:00:00 Ali Pediatric 350.1.13.10 ity of [place] [id number] [address] 2020-11-13 2020-11-13 Patient Meliza Gloria 1.2.840.114 [id number] Univers 00:00:00 00:00:00 Secure Msg , Susan Pediatric 350.1.13.10 ity of [place] and [place]2.[place] [phone] [address] 2020-11-13 2020-11-13 Patient [place] Faizan 1.2.840.114 [id number] Univers 00:00:00 00:00:00 Secure Msg , Susan Pediatric 350.1.13.10 ity of [place] and 4[place]2.[place].2.[place] [id number] [address] 2020-11-13 2020-11-13 Patient Meliza Faizan 1.2.840.114 [id number] 00:00:00 00:00:00 Secure Msg , Susan Pediatric 350.1.13.10 M s and 4.2.7.2.686 Adult [phone] [place] [address] Care Clinic 2020-11-08 2020-11-08 Office Meliza Gloria 1.2.840.114 [id number] Univers 11:09:23 12:22:47 Visit , Susan Pediatric 350.1.13.10 ity of [place] and [place] [id number] [address] 2020-11-08 2020-11-08 Outpatient R [facility] [id number] Univers 11:00:00 11:00:00 , SUSAN villanueva [facility] 2020-11-02 2020-11-02 Telephone Meliza Gloria 1.2.840.114 [id number] Univers 00:00:00 00:00:00 , Susan Pediatric 350.1.13.10 ity of [place] and 4[place]2.7.2.[place] [id number] [address] 2020-10-31 2020-10-31 Outpatient R NAOMI [facility] [id number] Univers 00:00:00 00:00:00 LORENA [facility] 2020-10-25 2020-10-25 Office Meliza Gloria 1.2.840.114 [id number] Univers 11:05:46 12:04:53 Visit , Susan Pediatric 350.1.13.10 ity of [place] and [place].2.[place] [id number] [address] 2020-10-25 2020-10-25 Outpatient R MELIZA [facility] [id number] Univers 11:00:00 11:00:00 , SUSAN villanueva [facility] 2020-10-23 2020-10-23 [id number] Univers 16:15:00 16:15:00 , SUSAN villanueva [facility] 2020-08-28 2020-08-28 Outpatient R [facility] [id number] Univers 15:45:00 15:45:00 , SUSAN it y of [facility] 2020-08-06 2020-08-06 Emergency [facility] 1.2.074.844 [id number] Univers 20:28:00 23:01:00 Rebeca Inman 350.1.13.10 ity of [place] [phone] [facility] [address] 2020-08-06 2020-08-06 Patient [facility] 1.2.840.114 [id number] Univers 00:00:00 00:00:00 Outreach [facility] 350.1.13.10 i ty of [facility] 4.2.7.2.[place] PAV[place] [id number] Dc dical [address] 2020-07-06 2020-07-06 Outpatient R [facility] [id number] Univers 14:00:00 14:00:00 ity of [facility] 2020-07-02 2020-07-02 Outpatient R [facility] [id number] Univers 08:00:00 08:00:00 ity of [facility] 2020-06-15 2020-06-15 Patient Kerry Collins [facility] 1.2.840.114 [id number] Univers 00:00:00 00:00:00 Secure Msg Rebeca FRIENDSWO 350.1.13.10 ity of [place] 4[place]2.7.2.686 [place] PEDIATRIC [id number] Dc dical AND ADULT [address] SPECIALTY CARE CLINICS 2020-06-11 2020-06-11 Telephone Kerry Collins 1.2.840.114 [id number] Univers 00:00:00 00:00:00 Ali Pediatric 350.1.13.10 ity of [place] and 4.2.7.2.686 [place] [phone] [facility] Primary [address] Care Clinic 2020-06-08 2020-06-08 Office Meliza Gloria 1.2.840.114 [id number] Univers 14:45:00 15:00:00 Visit , Susan Pediatric 350.1.13.10 ity of [place] and 4.2.7.2.[place] [phone] [address] 2020-06-08 2020-06-08 Outpatient R MELIZA [facility] [id number] Univers 14:45:00 14:45:00 , SUSAN locke [facility] 2020-06-08 2020-06-08 Outpatient R KERRY COLLINS [facility] [id number] Univers 14:40:00 14:40:00 ity of [facility] 2020-06-08 2020-06-08 Nurse Nurse, Gaudencio Gloria 1.2.84 0.114 [id number] Univers 13:56:21 14:16:21 Visit Kerry Collins Pediatric 350.1.13.10 ity of [place] 4[place]2.[place].2.[place] [id number] [address] 2020-06-01 2020-06-01 Outpatient R [facility] [id number] Univers 10:40:00 10:40:00 SUSAN [facility] 2020-05-30 2020-05-30 Office Meliza Gloria 1.2.840.114 [id number] Univers 15:50:39 17:01:06 Visit Susan 350.1.13.10 ity of [place] and 4[place]2.[place].2.[place] [id number] [address] 2020-05-30 2020-05-30 Outpatient R [facility] [id number] Univers 16:00:00 16:00:00 SUSAN [facility] 2020-05-25 2020-05-25 Kerry Butterfield 1.2.840.114 [id number] Univers 00:00:00 00:00:00 Rebeca Pediatric 350.1.13.10 ity of [place] and [place]2.7.2.[place] [id number] [address] 2020-05-25 2020-05-25 Kerry Butterfield 1.2.840.114 [id number] Univers 00:00:00 00:00:00 Ali Pediatric 350.1.13.10 ity of [place] and 4.2.7.2.686 [place] [id number] [address] 2020-04-16 2020-04-16 Telephone [facility] 1.2.840.114 [id number] Univers 00:00:00 00:00:00 Tyler Papito 350.1.13.10 i ty of [place] 4.2.7.2.[place] Profess[place] [id number] Dc dical nal [address] [place] [address] 2020-04-10 2020-04-10 Nurse Nurse, [facility] [place] 1.2.840.114 [id number] Univers 14:03:44 15:24:29 Visit Rabia Sanchez 350.1.13.10 ity of [place] 4.2.7.2.[place] [phone] Dc dical nal [address] [place] [address] 2020-04-10 2020-04-10 Outpatient R [facility] [id number] Univers 14:30:00 14:30:00 ity of [facility] 2020-04-09 2020-04-09 Telephone [facility] 1.2.690.186 [id number] Univers 00:00:00 00:00:00 Mine Imnan 350.1.13.10 ity of [place].2.[place] [phone] Dc dical nal [address] [place] [address] 2020-04-06 2020-04-06 Outpatient R MELIZA [facility] [id number] Univers 11:45:00 11:45:00 , SUSAN it y of [facility] 2020-04-04 2020-04-04 Telephone [facility] 1.2.450.157 [id number] Univers 00:00:00 00:00:00 Mine Inman 350.1.13.10 ity of [place] 4.2.7.2.[place] [phone] Dc dical nal [address] [place] [address] 2020-03-31 2020-03-31 Emergency [facility], [facility] 1.2.641.025 [id number] Univers 21:29:00 22:52:00 Bridget Inman 350.1.13.10 ity of [place] 4.2.7.2.[place] Wise [phone] [facility] [address] 2020-03-31 2020-03-31 Orders Doctor JESS 1.2.840.114 [id number] Univers 00:00:00 00:00:00 Only Unassigned, LEROY 350.1.13.10 ity of [place] [facility] 4.2.7.2.686 Vaibhav as [id number] [facility] [address] 2020-03-30 2020-03-30 Telephone Meryl [facility] 1.2.709.409 [id number] Univers 00:00:00 00:00:00 Mine Inman 350.1.13.10 ity of [place] 4.2.7.2.[place] [phone] Dc dical nal [address] [place] [address] 2020-03-30 2020-03-30 Kerry Butterfield 1.2.840.114 [id number] Univers 00:00:00 00:00:00 Ali Pediatric 350.1.13.10 ity of s and 4.2.7.2.[place] [phone] [facility] Primary [address] Care Clinic 2020-03-28 2020-03-28 Nurse Nurse, [facility] [place] 1.2.840.114 [id number] Univers 10:16:37 10:31:37 Visit Mine Sheth 350.1.13.10 ity of [place] 4.2.7.2.[place] [phone] Dc dical nal [address] [place] [address] 2020-03-28 2020-03-28 Outpatient R [facility] [id number] Univers 10:30:00 10:30:00 ity of [facility] 2020-01-06 2020-01-06 Telephone Kp [facility] 1.2.840.114 [id number] Univers 00:00:00 00:00:00 Tyler Inman 350.1.13.10 i ty of [place].2.[place] [phone] [address] 2019-12-27 2019-12-27 Telephone [facility] 1.2.532.585 [id number] Univers 00:00:00 00:00:00 Mine Inman 350.1.13.10 ity of [place] 4[place]2.7.2.[place] [phone] [address] 2019-12-26 2019-12-26 [facility] [id number] Univers 11:15:00 11:15:00 TYLER vila [facility] 2019-12-21 2019-12-21 Office [facility] 1.2.840.114 [id number] Univers 13:53:18 14:45:28 Visit Mine Inman 350.1.13.10 ity of [place] 4.2.7.2.[place] [id number] [address] 2019-12-21 2019-12-21 Outpatient R [facility] [id number] Univers 13:30:00 13:30:00 MINE itcornelia [facility] 2019-12-21 2019-12-21 Orders Doctor JESS 1.2.840.114 [id number] Univers 00:00:00 00:00:00 Only Unassigned, LEROY 350.1.13.10 ity of [place] [facility] 4.2.7.2.686 Vaibhav as [id number] [address] 2019-12-13 2019-12-13 Telephone [facility] 1.2.840.114 [id number] Univers 00:00:00 00:00:00 Tyler Inman 350.1.13.10 i ty of [place]2.[place].2.[place] [phone] [address] 2019-12-06 2019-12-06 Refill Doctor [facility] 1.2.840.114 [id number] Univers 00:00:00 00:00:00 Unassigned, Papito 350.1.13.10 ity of [place] 4.2.7.2.[place] [phone] [address] 2019-12-06 2019-12-06 Refill Doctor Gloria 1.2.840.114 [id number] Univers 00:00:00 00:00:00 Unassigned, Pediatric 350.1.13.10 ity of [place] and 4.2.7.2.[place] [id number] [address] 2019-12-06 2019-12-06 Refill Doctor Gloria 1.2.840.114 [id number] Univers 00:00:00 00:00:00 Unassigned, Pediatric 350.1.13.10 ity of [place] and 4.2.7.2.686 [place] [phone] [address] 2019-12-03 2019-12-03 Refill Kerry Collins 1.2.840.114 [id number] Univers 00:00:00 00:00:00 Ali Pediatric 350.1.13.10 ity of s and 4.2.7.2.[place] [id number] [address] 2019-12-01 2019-12-01 [facility] 1.2.840.114 [id number] Univers 21:00:45 23:27:00 Gianni Inman 350.1.13.10 i ty of [place] 4[place]2.7.2.[place] [id number] [facility] [address] 2019-12-01 2019-12-01 Orders Doctor MERCADO 1.2.840.114 [id number] Univers 00:00:00 00:00:00 Only Unassigned, LEROY 350.1.13.10 ity of [place] [facility] 4.2.7.2.686 Vaibhav as [id number] [facility] [address] 2019-11-23 2019-11-23 Outpatient Maia GOODRICH [facility] [id number] Univers 14:30:00 14:30:00 TYLER ity of [facility] 2019-11-01 2019-11-01 RefKerry Stokes 1.2.840.114 [id number] Univers 00:00:00 00:00:00 Ali Pediatric 350.1.13.10 ity of [place] 4[place]2.[place].2.[place] [id number] [address] 2019-10-05 2019-10-05 RefKerry Stokes 1.2.840.114 [id number] Univers 00:00:00 00:00:00 Ali Pediatric 350.1.13.10 ity of [place] and 4.2.7.2.[place] [id number] [address] 2019-08-29 2019-09-01 Urgent Arcelia Morris 1.2.840.1 14 [id number] Univers 11:10:52 09:07:40 Care Unknown, Attending Pediatric 350.1.13. 10 ity of [place] and 4.2.7.2.[place] [phone] [address] 2019-09-01 2019-09-01 Patient Faizan Kumari 1.2.840.114 [id number] Univers 00:00:00 00:00:00 Secure Msg Michelle S Pediatric 350.1.13.10 ity of [place] and [place].2.7.2.[place] [id number] [address] 2019-09-01 2019-09-01 Telephone Faizan Morris 1.2.840.114 [id number] Univers 00:00:00 00:00:00 Arcelia Pediatric 350.1.13.10 ity of [place] and 4.2.7.2.[place] [id number] [address] 2019-08-29 2019-08-29 Outpatient R UNKNOWN, [facility] [id number] Univers 11:00:00 11:00:00 ATTENDING ity of [facility] 2019-08-26 2019-08-26 Telephone Kerry Collins 1.2.840.114 [id number] Univers 00:00:00 00:00:00 Ali Pediatric 350.1.13.10 ity of [place] and 4.2.7.2.[place] [id number] [address] 2019-08-11 2019-08-11 RefKerry Stokes 1.2.840.114 [id number] Univers 00:00:00 00:00:00 [facility] 350.1.13.10 [place] [id number] [address] 2019-06-15 2019-06-15 Kerry Butterfield 1.2.840.114 [id number] Univers 00:00:00 00:00:00 [facility] 350.1.13.10 [place] [id number] [address] 2019-05-13 2019-05-13 Patient Doctor [facility] 1.2.840.114 [id number] Univers 00:00:00 00:00:00 Secure Msg Unassigned, [place] 350.1.13.10 ity of [place] [phone] Dc dical nal 134 [facility] 2019-02-01 2019-02-01 Patient JESS Harris 1.2.840.114 [id number] Univers 00:00:00 00:00:00 Outreach Holly HARPER 350.1.13.10 ity of [facility] 4.2.7.2.686 [place] as [phone] [address] 2019-01-06 2019-01-06 Office [facility] [id number] [id number] Univers 11:22:10 11:52:10 Visit Cyrus Mcneil SPECIALTY 350.1.13.10 [place] [phone] Dc dical VICTORY 198 [facility] 2019-01-05 2019-01-05 Abstract Melissa [facility] 1.2.840.114 [id number] Univers 00:00:00 00:00:00 [place] SPECIALTY 350.1.13.10 ity of [place] [phone] Dc dical VICTORY [address] [place] [address] 2018-12-27 2018-12-27 Telephone Kp [facility] 1.2.840.114 [id number] Univers 00:00:00 00:00:00 Tyler [place] 350.1.13.10 i ty of [place] [phone] Dc dical nal 134 [facility] 2018-12-21 2018-12-21 Patient JESS Harris 1.2.840.114 [id number] Univers 00:00:00 00:00:00 Outreach Holly HRAPER 350.1.13.10 ity of [facility] 4.2.7.2.686 [place] as [phone] [address] 2018-12-13 2018-12-13 Telephone [facility] 1.2.840.114 [id number] Univers 00:00:00 00:00:00 Tyler Papito [id number] i [id number] [phone] Dc dical nal [address] [place] [address] 2018-12-10 2018-12-10 Telephone [facility] [id number] Univers 00:00:00 00:00:00 Tyler [place] [id number] i [id number] [phone] Dc dic[address] 2018-10-15 2018-10-15 Emergency E [place], [facility] [id number] 15 be 02:31:00 03:40:00 [facility] 2018-10-01 2018-10-01 Outpatient C [facility] RAD [id number] [place] 08:05:00 23:59:00 [facility] Results Test Description Test Time Test Comments Results Result Comments Source POCT URINALYSIS W SPECIFIC GRAVITY 2022-07-01 17:52:00 Test Item Value Reference Range Interpretation Comme nts POCT U SP GRAV (test code = 3255) 1.025 mg/dl 1.005-1.025 POCT PH U (test code = 3254) 5 mg/dl 5-8 POCT U LEUK EST (test code = 3263) + Negative - Negative POCT U NIT (test code = 3262) Neg Negative - Negative POCT U PROT (test code = 3259) trace Negative - Negative POCT U GLU (test code = 3256) normal Negative - Negative POCT U KETONE (test code = 3258) neg Negative - Negative POCT U UROBILI (test code = 3260) normal 0.2-1 POCT U BILI (test code = 3261) neg Negative - Negative POCT U BLD (test code = 3257) about 50 Negative - Negative POCT U COLOR (test code = 3266) light yellow POCT U APPEAR (test code = 3267) clear [facility] URINALYSIS W SPECIFIC [id number] 17:52:00 Test Item Value Reference Range Interpretation Comments POCT U SP GRAV (test code = 1.025 mg/dl 1.005-1.025 3255) POCT PH U (test code = 3254) 5 mg/dl 5-8 POCT U LEUK EST (test code = + Negative - Negative 3263) POCT U NIT (test code = Neg Negative - Negative 3262) POCT U PROT (test code = trace Negative - Negative 3259) POCT U GLU (test code = normal Negative - Negative 3256) POCT U KETONE (test code = neg Negative - Negative 3258) POCT U UROBILI (test code = normal 0.2-1 3260) POCT U BILI (test code = neg Negative - Negative 3261) POCT U BLD (test code = about 50 Negative - Negative 3257) POCT U COLOR (test code = light yellow 3266) POCT U APPEAR (test code = clear 3267) [facility] URINALYSIS W SPECIFIC [id number] 17:52:00 Test Item Value Reference Range Interpretation Comments POCT U SP GRAV (test code = 1.025 mg/dl 1.005-1.025 3255) POCT PH U (test code = 3254) 5 mg/dl 5-8 POCT U LEUK EST (test code = + Negative - Negative 3263) POCT U NIT (test code = Neg Negative - Negative 3262) POCT U PROT (test code = trace Negative - Negative 3259) POCT U GLU (test code = normal Negative - Negative 3256) POCT U KETONE (test code = neg Negative - Negative 3258) POCT U UROBILI (test code = normal 0.2-1 3260) POCT U BILI (test code = neg Negative - Negative 3261) POCT U BLD (test code = about 50 Negative - Negative 3257) POCT U COLOR (test code = light yellow 3266) POCT U APPEAR (test code = clear 3267) [facility] URINALYSIS W SPECIFIC [id number] 17:52:00 Test Item Value Reference Range Interpretation Comments POCT U SP GRAV (test code = 1.025 mg/dl 1.005-1.025 3255) POCT PH U (test code = 3254) 5 mg/dl 5-8 POCT U LEUK EST (test code = + Negative - Negative 3263) POCT U NIT (test code = Neg Negative - Negative 3262) POCT U PROT (test code = trace Negative - Negative 3259) POCT U GLU (test code = normal Negative - Negative 3256) POCT U KETONE (test code = neg Negative - Negative 3258) POCT U UROBILI (test code = normal 0.2-1 3260) POCT U BILI (test code = neg Negative - Negative 3261) POCT U BLD (test code = about 50 Negative - Negative 3257) POCT U COLOR (test code = light yellow 3266) POCT U APPEAR (test code = clear 3267) [facility] [id number] 14:40:00 Test Item Value Reference Range Interpretation Comments POCT PREG (test code = 1605) Negative On board controls acceptable with C Yes Line (test code = 3574) POCT PREG LOT # (test code = 3575) POCT PREG TEST DATE (test code = 3576) [facility] [id number] 14:40:00 Test Item Value Reference Range Interpretation Comments POCT PREG (test code = 1605) Negative On board controls acceptable with C Yes Line (test code = 3574) POCT PREG LOT # (test code = 3575) POCT PREG TEST DATE (test code = 3576) [facility] ABDOMEN AND PELVIS WITH [id number] 08:51:45EXAM: CT ABDOMEN AND PELVIS WITH CONTRAST.LOCATION: D4.HISTORY: [id number]: Disorder of [id number]: Benign neoplasm of colon.COMPARISON:None.TECHNIQUE:CT abdomen and pelvis [...]
[2022-07-11 02:04] LABS: Absolute Lymphocytes (CBC) 2.9 K/uL (0.7-4.9); Hematocrit 31.8 % (36.0-45.0); Lymphocytes % 38.5 % (15.3-44.8); MCV 77.6 fL (80-100)
[2022-07-11 02:09] LABS: Urine Blood Negative (Negative); Urine Glucose Negative (Negative); Urine Protein Negative (Negative); Urine Specific Gravity >=1.030 (1.005-1.030)
[2022-07-11 02:18] LABS: Albumin 3.7 g/dL (3.4-5.0); Bilirubin Total 0.2 mg/dL (0.2-1.0); Potassium 3.7 mmol/L (3.5-5.1); Protein, Total 7.8 g/dL (6.4-8.2)
--- NOTE | 2022-07-11 02:26 | ER ---
Nurse's Notes [facility] Name: Tg Quarles Age: 42 yrs Sex: Female : 1980 Arrival Date: 07/10/2022 Time: 23:52 Bed 19 Private MD: Diagnosis: Upper abdominal pain, unspecified Presentation: 07/11 01:32 Chief complaint: Patient states: "I am having pain in my upper stomach that goes into vc1 my ribs and my back.". Coronavirus screen: Vaccine status: Patient reports receiving the 2nd dose of the covid vaccine. Moderna Client denies travel out of the [place] in the last 14 days. At this time, the client does not indicate any symptoms associated with coronavirus-19. Ebola Screen: No symptoms or risks identified at this time. Initial Sepsis Screen: Does the patient meet any 2 criteria? No. Patient's initial sepsis screen is negative. Does the patient have a suspected source of infection? No. Patient's initial sepsis screen is negative. Risk Assessment: Do you want to hurt yourself or someone else? Patient reports no desire to harm self or others. Onset of symptoms. 01:32 Method Of Arrival: Ambulatory vc1 01:32 Acuity: JULIENNE 3 vc1 Triage Assessment: 01:34 General: Appears in no apparent distress. Behavior is calm, cooperative, appropriate vc1 for age. Pain: Complains of pain in right upper quadrant Pain radiates to anterior aspect of right lateral abdomen Pain currently is 5 out of 10 on a pain scale. EENT: No deficits noted. No signs and/or symptoms were reported regarding the EENT system. Neuro: No deficits noted. Cardiovascular: No deficits noted. Respiratory: No deficits noted. GI: Reports upper abdominal pain. : No deficits noted. No signs and/or symptoms were reported regarding the genitourinary system. Derm: No deficits noted. No signs and/or symptoms reported regarding the dermatologic system. 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 - Social history:: Smoking status: Patient reports the use of cigarette tobacco products, a few. - Family history:: not pertinent. - Hospitalizations: : No recent hospitalization is reported. Screenin:45 Abuse screen: Denies threats or abuse. Nutritional screening: No deficits noted. vc1 Tuberculosis screening: No symptoms or risk factors identified. Assessment: 01:23 General: Appears comfortable, Behavior is calm, cooperative. Pain: Complains of pain in ha1 mid epigastric Pain radiates to right side of back Pain currently is 6 out of 10 on a pain scale. Neuro: Level of Consciousness is awake, alert, obeys commands, Oriented to person, place, time, situation. Cardiovascular: Patient's skin is warm and dry. Respiratory: Airway is patent Respiratory effort is even, unlabored, Respiratory pattern is regular, symmetrical. GI: Abdomen is flat, non-distended, Bowel sounds present X 4 quads. Abd is soft and non tender X 4 quads. Reports mid epigastric pain. : No signs and/or symptoms were reported regarding the genitourinary system. Musculoskeletal: Circulation, motion, and sensation intact. Range of motion: intact in all extremities. Vital Signs: 01:23 BP 110 / 70; Pulse 80; Resp 18 S; Pulse Ox 100% on R/A; ha1 01:32 BP 115 / 72; Pulse 82; Resp 18; Temp 97; Pulse Ox 100% ; Weight 102.97 kg; Height 6 ft. vc1 0 in. (182.88 cm); Pain 5/10; 02:20 BP 107 / 65; Pulse 80; Resp 17 S; Pulse Ox 100% on R/A; ha1 01:32 Body Mass Index 30.79 (102.97 kg, 182.88 cm) vc1 ED Course: 07/10 23:52 Patient arrived in ED. jj6 23:58 Arnold Erickson MD is Attending Physician. rn 07/11 01:23 Patient has correct armband on for positive identification. Bed in low position. Call ha light in reach. Side rails up X 1. 01:34 Triage completed. vc1 01:41 Arm band placed on right wrist. vc1 02:01 Janie Bobby, RN is Primary Nurse. ha1 02:02 CBC with Diff Sent. bc6 02:02 CMP Sent. bc6 02:02 Lipase Sent. bc6 02:03 Inserted saline lock: 20 gauge in right antecubital area, using aseptic technique. bc6 02:37 Janie Bobby, RN is Primary Nurse. ha1 02:46 No provider procedures requiring assistance completed. IV discontinued, intact, ha1 bleeding controlled, No redness/swelling at site. Pressure dressing applied. Administered Medications: 02:32 Drug: GI Cocktail without - (Maalox Suspension 30 ml, Lidocaine Liquid 2 % 15 ha1 ml) Route: PO; 02:46 Follow up: Response: No adverse reaction ha1 02:32 Drug: Motrin (ibuprofen) 600 mg Route: PO; ha1 02:46 Follow up: Response: No adverse reaction ha1 Medication: 01:45 VIS not applicable for this client. vc1 Outcome: 02:26 Discharge ordered by . rn 02:47 Discharged to home ambulatory. ha1 02:47 Condition: stable 02:47 Discharge instructions given to patient, Instructed on discharge instructions, follow up and referral plans. Demonstrated understanding of instructions, follow-up care. 02:50 Patient left the ED. ha1 Signatures: Arnold Erickson MD MD rn Jeffries, Jennifer jj6 Kary Xiao RN RN vc1 Janie Bobby, RN RN ha1 Sylvia [facility]
--- NOTE | 2022-07-11 02:26 | EDPHYS ---
Physician Documentation [facility] Name: Tg Quarles Age: 42 yrs Sex: Female : 1980 Arrival Date: 07/10/2022 Time: 23:52 Bed 19 Private MD: ED Physician Arnold Erickson HPI: 07/11 00:52 This 42 yrs old Female presents to ER via Unassigned with complaints of Abdominal Pain. rn 00:52 The patient presents with abdominal pain in the upper abdomen. Onset: The rn symptoms/episode began/occurred "months". The symptoms do not radiate. Associated signs and symptoms: Pertinent negatives: nausea and vomiting, anorexia, blood in stools, chest pain, constipation, diarrhea, dysuria, fever, shortness of breath, vaginal discharge, vomiting blood. The symptoms are described as achy, crampy. Modifying factors: The symptoms are alleviated by nothing, the symptoms are aggravated by touching the area. Severity of pain: At its worst the pain was mild in the emergency department the pain is unchanged. The patient has experienced similar episodes in the past, chronically. The patient has not recently seen a physician. Reports upper abd pain for "months", no new symptoms, does not have gallbladder, no fever/vomiting/diarrhea/blood in stool. Reports has had upper endoscopy without clear diagnosis. Takes omeprazole. . 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 - Social history:: Smoking status: Patient reports the use of cigarette tobacco products, a few. - Family history:: not pertinent. - Hospitalizations: : No recent hospitalization is reported. ROS: 00:52 Constitutional: Negative for fever, chills, and weight loss, Eyes: Negative for injury, rn pain, redness, and discharge, Neck: Negative for injury, pain, and swelling, Cardiovascular: Negative for chest pain, palpitations, and edema, Respiratory: Negative for shortness of breath, cough, wheezing, and pleuritic chest pain, Abdomen/GI: + upper abd pain Back: Negative for injury and pain, : Negative for injury, bleeding, discharge, and swelling, MS/Extremity: Negative for injury and deformity, Skin: Negative for injury, rash, and discoloration, Neuro: Negative for headache, weakness, numbness, tingling, and seizure. Exam: 00:52 Constitutional: This is a well developed, well nourished patient who is awake, alert, rn and in no acute distress. Head/Face: Normocephalic, atraumatic. Cardiovascular: Regular rate and rhythm. No pulse deficits. Respiratory: No increased work of breathing, no retractions or nasal flaring. Abdomen/GI: soft, mild epigastric tenderness and RUQ tenderness, no rebound or masses Skin: Warm, dry MS/ Extremity: Pulses equal, no cyanosis. Vital Signs: 01:23 BP 110 / 70; Pulse 80; Resp 18 S; Pulse Ox 100% on R/A; ha1 01:32 BP 115 / 72; Pulse 82; Resp 18; Temp 97; Pulse Ox 100% ; Weight 102.97 kg; Height 6 ft. vc1 0 in. (182.88 cm); Pain 5/10; 02:20 BP 107 / 65; Pulse 80; Resp 17 S; Pulse Ox 100% on R/A; ha1 01:32 Body Mass Index 30.79 (102.97 kg, 182.88 cm) vc1 MDM: 07/10 23:58 Patient medically screened. rn 07/11 02:24 Differential diagnosis: gastritis, gastroesophageal reflux disease, non-specific abd rn pain, pancreatitis, Peptic Ulcer Disease. Data reviewed: vital signs, nurses notes, lab test result(s), and as a result, I will discharge patient. I considered the following discharge prescriptions or medication management in the emergency department I discussed and recommended Over The Counter medications, Antibiotics: At this time antibiotics are not recommended, Medications were administered in the Emergency Department. See MAR. Test considered but Not performed: CT: CT abdomen considered but not done due to chronic pain, normal WBC, normal vitals, normal lipase and LFTs, no gallbladder. . Counseling: I had a detailed discussion with the patient and/or guardian regarding: the historical points, exam findings, and any diagnostic results supporting the discharge/admit diagnosis, lab results, the need for outpatient follow up, to return to the emergency department if symptoms worsen or persist or if there are any questions or concerns that arise at home. Special discussion: I discussed with the patient/guardian in detail that at this point there is no indication for admission to the hospital. It is understood, however, that if the symptoms persist or worsen the patient needs to return immediately for re-evaluation. Based on the history and exam findings, there is no indication for further emergent testing or inpatient evaluation. I discussed with the patient/guardian the need to see the home visitor for further evaluation of the symptoms. I discussed with the patient/guardian the need to see the primary care provider for further evaluation of the symptoms. 07/11 00:07 Order name: CBC with Diff; Complete Time: 02:12 rn 07/11 00:07 Order name: CMP; Complete Time: 02:23 rn 07/11 00:07 Order name: Lipase; Complete Time: 02:23 rn 07/11 00:08 Order name: Urine Microscopic Only; Complete Time: 02:34 rn 07/11 02:09 Order name: Urine Dipstick-Ancillary; Complete Time: 02:12 EDMS 07/11 00:07 Order name: IV Saline Lock; Complete Time: 02:02 rn 07/11 00:07 Order name: Labs collected and sent; Complete Time: 02:02 rn 07/11 00:08 Order name: Urine Dipstick-Ancillary (obtain specimen); Complete Time: 02:10 rn 07/11 00:08 Order name: Urine Test (obtain specimen); Complete Time: 02:10 rn Administered Medications: 02:32 Drug: GI Cocktail without - (Maalox Suspension 30 ml, Lidocaine Liquid 2 % 15 ha1 ml) Route: PO; 02:46 Follow up: Response: No adverse reaction ha1 02:32 Drug: Motrin (ibuprofen) 600 mg Route: PO; ha1 02:46 Follow up: Response: No adverse reaction ha1 Disposition Summary: 07/11/22 02:26 Discharge Ordered Location: Home rn Problem: new rn Symptoms: have improved rn Condition: Stable rn Diagnosis - Upper abdominal pain, unspecified rn Followup: rn - With: Private Physician - When: As needed - Reason: Recheck today's complaints, Re-evaluation by your physician Discharge Instructions: - Discharge Summary Sheet rn - Abdominal Pain, Adult rn - Pain Without a Known Cause rn Forms: - Medication Reconciliation Form rn - Thank You Letter rn - Antibiotic rn surgical pcu - Prescription Opioid Use rn Signatures: Dispatcher [employer] Arnold Sahu MD MD rn Calcote, Vanessa RN RN vc1 Janie Bobby RN RN ha1
[2022-07-11 02:27] LABS: Urine Bacteria <20 /HPF (<20); Urine Mucus Slight /HPF (None Seen); Urine RBC <5 /HPF (None Seen)
[2022-07-11] MEDS ORDERED: IBUPROFEN 200 MG TAB PO ONE (02:32)
[2022-07-11] MEDS ORDERED: MAGNES/ALUMIN/SIMET 30ML UCUP ONE (02:32)
[2022-07-11] MEDS ORDERED: LIDOCAINE VISCOUS 2% SOLN 15 ML UDC ONE (02:32)
[2022-07-11 03:55] VITALS: O2SAT 100
[2022-07-11 04:01] VITALS: TEMP 97
[2022-07-11 04:06] VITALS: BP 107/65
== END 2022-07-11 02:50 | disposition home or self-care (01) ==
LOC: ER 23:48
DX: R10.10 Upper abdominal pain, unspecified (principal); I10 Essential (primary) hypertension; Z88.2 Allergy status to sulfonamides; Z88.5 Allergy status to narcotic agent
CPT/HCPCS: 36415; 80053; 81003; 81015; 83690; 85025; 99283

== ENCOUNTER 2022-12-03 02:35 | Emergency (ER) | payer OTHER ==
--- OUTSIDE RECORDS SUMMARY | 2022-12-03 02:42 | XMS REPORT | Continuity of Care Document ---
:1980 Author Organization [facility] t Address [address] [facility] [address] [place] [address] Care Team Providers Name Role Phone Susan Haider MD Primary Care Physician [phone] SAMMI LINDSEY Attending Clinician Unavailable Sammi Steele Attending Clinician Susan Haider MD Attending Clinician [phone] Silas Martins MD Attending Clinician Adair Richmond Attending Clinician Unknown, Attending Attending Clinician Unavailable ADAIR HOPE Attending Clinician Unavailable EVGENY FRANCO Attending Clinician Unavailable EVGENY FRANCO Attending Clinician Unavailable SUSAN HAIDER Attending Clinician Unavailable LORENA FISHER Attending Clinician Unavailable Lorena Fisher MD Attending Clinician Doctor Unassigned, [place] Attending Clinician Unavailable DUNG SHAHID Attending Clinician Unavailable SILAS MARTINS Attending Clinician Unavailable TYLER GOODRICH Attending Clinician Unavailable Stefanie Abarca MA Attending Clinician Unavailable Rabia Sanchez MD Attending Clinician RABIA SANCHEZ Attending Clinician Unavailable Tyler Goodrich PA-C Attending Clinician Pob, [facility] Attending Clinician Unavailable MINE SHETH Attending Clinician Unavailable ELOY ROLAND Attending Clinician Unavailable Amaya REARDON, Alan Pollard Attending Clinician ALAN COHEN Attending Clinician Unavailable Morrisdemetria SWEET, Arcelia Attending Clinician MORRISARCELIA CHARLES Attending Clinician Unavailable Dennis ZAMORANO, Kerry Jose Attending Clinician Vy REARDON, Rebeca Johnston Attending Clinician Yves Ayala DO Attending Clinician KERRY COLLINS Attending Clinician Unavailable Nurse, [facility] Roberto Rawls Attending Clinician Unavailable Nurse, [facility] Attending Clinician Unavailable Meryl REARDON, Mine Gonzalez Attending Clinician Vonda SECURITY AMBASSADOR, Bridget Sheth Attending Clinician Gianni Pina Attending Clinician Quoc TELEHEALTH NURSE, Michelle S Attending Clinician Unavailable UNKNOWN, ATTENDING Attending Clinician Unavailable Steven SHELL, Holly Nunez Attending Clinician Unavailable Fransico REARDON, Cyrus P Attending Clinician Melissa REARDON, [place] Nunez Attending Clinician DR MATT MCLAUGHLIN Attending Clinician Unavailable LORENA GREER Attending Clinician Unavailable LORENA FISHER Admitting Clinician Unavailable DR MATT MCLAUGHLIN Admitting Clinician Unavailable LORENA GREER Admitting Clinician Unavailable Payers Payer Name Policy Type Policy Number Effective Date Expiration Date S dioni [facility] [id number] 2017 00:00:00 Problems Condition Condition Condition Status Onset Resolution Last Treating Co mments Source Name Details Category Date Date Treatment Clinician Date Lumbar Lumbar Disease Active Univers pain pain 7-10 ity of 00:00: [address] Essential Essential Disease Active Uni vers hypertensi hypertensi 5-03 it y of on on 00:00: [address] History of History of Disease Active U nivers trichomona trichomona 8-05 it y of l l 00:00: [place] vaginitis vaginitis [address] [place] [address] Trichomona Trichomona Disease Active U nivers l l 7-17 ity of vulvovagin [place] 00 [facility] BV BV Disease Active Univers (bacterial (bacterial 7-17 it y of vaginosis) vaginosis[place] [facility] Obesity Obesity Disease Active Univers (BMI (BMI 7-08 ity of 30-39.9) 30-39.9) 00:00: [address] Skin yeast Skin yeast Disease Active U nivers infection infection 7-18 ity of 00:00: [address] Screen for Screen for Disease Active U nivers STD STD 7-18 ity of (sexually ([place]ually [place] transmit[place] transmitte 00 Me dical d disease) d disease) Br anch Depo Depo Disease Active Univers contracept contracept 7-18 it y of ion ion 00:00: [address] Pain Pain Disease Active Univers pelvic pelvic 2-15 ity of 00:00: [address] Surveillan Surveillan Disease Active U nivers ce of ce of 2-15 ity of [place] prescribed prescribed 00 [place] dical contracept contracept Br anch sosa method sosa method Irregular Irregular Disease Active Uni vers menstrual menstrual 2-15 ity of cycle cycle 00:00: [address] Well woman Well woman Disease Active U nivers exam exam 2-15 ity of without without 00:00: [place] gynecologi gynecologi 00 Me dical cornelius exam cornelius exam Branch Need for Need for Disease Active Unive rs prophylact prophylact 2-15 it y of ic ic 00:00: [place] vaccinatio vaccinatio 00 Me dical n with n with Branch combined combined diphtheria diphtheria -tetanus-p -tetanus-p ertussis ertussis (DTP) (DTP) vaccine vaccine BMI BMI Disease Active Univers 34.0-34.9, 34.0-34.9, 2-15 it y of adult adult 00:00: [address] Allergies, Adverse Reactions, Alerts Allergy Allergy Status Severity Reaction(s) Onset Inactive Treating Comm ents Source Name Type Date Date Clinician TRAMADOL DRUG Active N/V 2015- Univers INGREDI 2-17 ity of 00:00: [place] [...] Date Stop Date Quantity Comments Source History [facility] o f Alcohol Comment [place] Med ical Branch Gender identity Universit y of [facility] Sexual orientation Univer sity of [facility] History of tobacco Cigarette Smoker University of use [facility] Alcohol intake 2022-11-24 2022-11-24 Ex-drinker University of 00:00:00 00:00:00 (finding) [facility] Exposure to 2022-08-29 2022-09-08 Not sure [facility] SARS-CoV-2 (event) 00:00:00 15:36:00 [facility] History of Social 2022-07-01 2022-07-01 Univers ity of function 00:00:00 00:00:00 [facility] Tobacco use and 2021-11-27 2021-11-27 Smokeless Universit y of exposure 00:00:00 00:00:00 tobacco non-user [place] Me dical Branch History [facility] 2019-12-21 2019-12-21 2 University o f Alcohol Frequency 00:00:00 00:00:00 [place] M edical Branch History [facility] 2019-12-21 2019-12-21 99 University o f Alcohol Std Drinks 00:00:00 00:00:00 [place] Medical [facility] History [facility] 2019-12-21 2019-12-21 99 University o f Alcohol Binge 00:00:00 00:00:00 [place] Medic al Branch Sex [birth year] Universit y of 00:00:00 00:00:00 [facility] Smoking Status Start Date Stop Date Source Occasional tobacco smoker 2021-11[facility]27 [facility]ations Ordered Filled Start Stop Current Ordering Indication Dosage Frequency Signature Comments Components Source Medication Medication Date Date Medication? Clinician (SIG) Name Name tiZANidine Yes [id number] 2mg Take 1 Univers 2 mg 7-10 capsule by ity of capsule 00:00: mouth in [place] 00 the Medical morning Branch and 1 capsule at noon and 1 capsule in the evening. tiZANidine Yes [id number] 2mg Take 1 Univers 2 mg 7-10 capsule by ity of capsule 00:00: mouth in [place] [address] the Medical morning Branch and 1 capsule at noon and 1 capsule in the evening. ibuprofen 2022- Yes [id number] 800mg Take 1 Univers 800 mg 7-10 07-25 tablet by ity of tablet 00:00: 04:59 mouth [place] 00 :00 every 6 Medical (six) Branch hours as needed for Pain (scale 4-6) for up to 14 days. ibuprofen 2022- Yes [id number] 800mg Take 1 Univers 800 mg 7-10 07-25 tablet by ity of tablet 00:00: 04:59 mouth [place] 00 :00 every 6 Medical (six) Branch hours as needed for Pain (scale 4-6) for up to 14 days. metoprolol Yes [id number] 12.5mg Take 0.5 Univers tartrate 25 5-31 tablets by it y of mg tablet 00:00: [place] the Medical morning. Branch metoprolol Yes [id number] 12.5mg Take 0.5 Univers tartrate 25 5-31 tablets by it y of mg tablet 00:00: [place] 00 the Medical morning. Branch metoprolol 0 Yes [id number] 12.5mg Take 0.5 Univers tartrate 25 5-31 tablets by it y of mg tablet 00:00: [place] 00 the Medical morning. Branch metoprolol 0 Yes [id number] 12.5mg Take 0.5 Univers tartrate 25 5-31 tablets by it y of mg tablet 00:00: [place] 00 the Medical morning. Branch ketorolac 2022- No [id number] 60mg Un bruce (TORADOL) 4-24 04-24 ity of injection 20:52: 20:56 [place] 60 mg 00 :00 Medical Branch ketorolac 2022- No [id number] 60mg 60 mg, Univers (TORADOL) 09-08 Intramuscu ity of injection 20:52: 20:56 [place], ONCE, [place] 60 mg 00 :00 1 dose, On Medical Mon Branch 09/08/22 at 1600, Routine naproxen 2022- Yes [id number] 500mg Take 1 Univers 500 mg 09-08 tablet by ity of tablet 00:00: 04:59 mouth 2 [place] 00 :00 (two) Medical times Branch daily with meals as needed for Pain (scale 4-6) for up to 10 days. methocarbam 2022- Yes [id number] 500mg Take 1 Univers oL 500 mg 09-08 tablet by ity of tablet 00:00: 04:59 mouth 4 [place] 00 :00 (four) Medical times Branch daily as needed for Pain (scale 7-10) for up to 5 days. clotrimazol 2022- No [id number] Apply to Univers e-betametha 08-21 area(s) 2 it y of sone cream 00:00: 04:59 (two) [place] 00 :00 times Medical daily for Branch 7 days. clotrimazol 2022- No [id number] Apply to Univers e-betametha 08-21 area(s) 2 it y of sone cream 00:00: 04:59 (two) [place] 00 :00 times Medical daily for Branch 7 days. iopamidol 2022- No [id number] 100mL 100 mL, Univers (ISOVUE 08-15 Intravenou ity o f 370-500 mL) 17:30: 16:35 s, ONCE, 1 [place] injection 00 :00 dose, On Medica l 100 mL Fri Branch 08/15/22 at 1230, Routine metroNIDAZO 2022- No [id number] 500mg Take 1 Univers LE (FLAGYL) 07-28 tablet by it y of 500 mg 00:00: 04:59 mouth [place] tablet 00 :00 every 12 Medical (twelve) Branch hours for 7 days. fluconazole 2023-0 2023- No [id number] 150mg Take 1 Univers 150 mg 3-01 18-10 tablet by ity of tablet 00:00: 05:59 mouth [place] 00 :00 now for 1 Medical dose. September Branch repeat dose in 3 days if needed fluconazole 2023-0 2023- No [id number] 150mg Take 1 Univers 150 mg 3-01 18-10 tablet by ity of tablet 00:00: 05:59 [place] 00 :[place] now for 1 Medical dose. September Branch repeat dose in 3 days if needed fluconazole 2023-0 2023- No [id number] 150mg Take 1 Univers 150 mg 3-01 18-10 tablet by ity of tablet 00:00: 05:59 [place] 00 :00 now for 1 Medical dose. September Branch repeat dose in 3 days if needed fluconazole 2023-0 2023- No [id number] 150mg Take 1 Univers 150 mg 3-01 18-10 tablet by ity of tablet 00:00: 05:59 [place] 00 :[place] now for 1 Medical dose. September Branch repeat dose in 3 days if needed omeprazole 2023-0 Yes 40mg Take 1 Unive rs 40 mg 3-05 capsule by ity of capsule 00:00: mouth in [place] the Medical morning. Branch omeprazole 2023-0 Yes 40mg Take 1 Unive rs 40 mg 3-05 capsule by ity of capsule 00:00: mouth in [place] the Medical morning. Branch omeprazole 2023-0 Yes 40mg Take 1 Unive rs 40 mg 3-05 capsule by ity of capsule 00:00: mouth in [place] the Medical morning. Branch omeprazole 2023-0 Yes 40mg Take 1 Unive rs 40 mg 3-05 capsule by ity of capsule 00:00: mouth in [place] the Medical morning. Branch omeprazole 2023-0 Yes 40mg Take 1 Unive rs 40 mg 3-05 capsule by ity of capsule 00:00: mouth in [place] the Medical morning. Branch omeprazole 2023-0 Yes 40mg Take 1 Unive rs 40 mg 3-05 capsule by ity of capsule 00:00: mouth in [place] [address] the Medical morning. Branch omeprazole 2023-0 Yes 40mg Take 1 Unive rs 40 mg 3-05 capsule by ity of capsule 00:00: mouth in [place] 00 the Medical morning. Branch omeprazole 2023-0 Yes 40mg Take 1 Unive rs 40 mg 3-05 capsule by ity of capsule 00:00: mouth in [place] 00 the Medical morning. Branch omeprazole 2023-0 Yes 40mg Take 1 Unive rs 40 mg 3-05 capsule by ity of capsule 00:00: mouth in [place] 00 the Medical morning. Branch omeprazole 2023-0 Yes 40mg Take 1 Unive rs 40 mg 3-05 capsule by ity of capsule 00:00: mouth in [place] 00 the Medical morning. Branch omeprazole 2023-0 Yes 40mg Take 1 Unive rs 40 mg 3-05 capsule by ity of capsule 00:00: mouth in [place] 00 the Medical morning. Branch omeprazole 2023-0 Yes 40mg Take 1 Unive rs 40 mg 3-05 capsule by ity of capsule 00:00: mouth in [place] the Medical morning. Branch omeprazole 2023-0 Yes 40mg Take 1 Unive rs 40 mg 3-05 capsule by ity of capsule 00:00: mouth in [place] the Medical morning. Branch fluconazole 2022-0 3- No [id number] 150mg Take 1 Univers (DIFLUCAN) 3-06 20-03 tablet by ity of 150 mg 00:00: 05:59 [place] tablet 00 :00 now for 1 Medical dose. Branch metroNIDAZO 2022-0 2022- No [id number] 500mg Take 1 Univers LE 500 mg 16 24 tablet by ity of tablet 00:00: 05:59 mouth in [place] 00 :00 the Medical morning Branch and 1 tablet in the evening. Do all this for 7 days. clotrimazol 2022-0 2022- No [id number] Apply to [facility] [place] [facility] e-betametha 07-01 area(s) 2 it y of sone cream 00:00: 05:59 (two) [place] 00 :00 times Medical daily for Branch 14 days. clotrimazol 2022-0 2022- No [id number] Apply to [facility] [place] [facility] e-betametha 07-01 area(s) 2 it y of sone cream 00:00: 05:59 (two) [place] 00 :00 times Medical daily for Branch 14 days. clotrimazol 2022- No [id number] Apply to [facility] [place] [facility] e-betametha 07-01 area(s) 2 it y of sone cream 00:00: 05:59 (two) [place] 00 :00 times Medical daily for Branch 14 days. clotrimazol 2022- No [id number] Apply to [facility] [place] [facility] e-betametha 07-01 area(s) 2 it y of sone cream 00:00: 05:59 (two) [place] 00 :00 times Medical daily for Branch 14 days. clotrimazol 2022- No [id number] Apply to [facility] [place] [facility] e-betametha 07-01 area(s) 2 it y of sone cream 00:00: 05:59 (two) [place] 00 :00 times Medical daily for Branch 14 days. fluconazole 2022- No [id number] 200mg Take 1 Univers 200 mg 2-14 -15 tablet by ity of tablet 00:00: 05:59 [place] 00 :[place] now for 1 Medical dose. [place] fluconazole 2022- No [id number] 200mg Take 1 Univers 200 mg 2-14 -15 tablet by ity of tablet 00:00: 05:59 [place] 00 :00 now for 1 Medical dose. [place] fluconazole 2022- No [id number] 200mg Take 1 Univers 200 mg 2-14 -15 tablet by ity of tablet 00:00: 05:59 [place] 00 :00 now for 1 Medical dose. [place] fluconazole 2022- No [id number] 200mg Take 1 Univers 200 mg 2-14 -15 tablet by ity of tablet 00:00: 05:59 [place] 00 :00 now for 1 Medical dose. Branch METOPROLOL 0 Yes [id number] Take 1/2 Univers TARTRATE 25 2-08 (one-half) it y of mg tablet 00:00: tablet by [place] 00 mouth once Medical daily Branch METOPROLOL 0 Yes [id number] Take 1/2 Univers TARTRATE 25 2-08 (one-half) it y of mg tablet 00:00: tablet by [place] 00 mouth once Medical daily Branch METOPROLOL 2022-0 Yes [id number] Take 1/2 Univers TARTRATE 25 2-08 (one-half) it y of mg tablet 00:00: tablet by [place] 00 mouth once Medical daily Branch METOPROLOL 2022-0 Yes [id number] Take 1/2 Univers TARTRATE 25 2-08 (one-half) it y of mg tablet 00:00: tablet by [place] 00 mouth once Medical daily Branch METOPROLOL 2022-0 Yes [id number] Take 1/2 Univers TARTRATE 25 2-08 (one-half) it y of mg tablet 00:00: tablet by [place] 00 mouth once Medical daily Branch METOPROLOL 2022-0 Yes [id number] Take 1/2 Univers TARTRATE 25 2-08 (one-half) it y of mg tablet 00:00: tablet by [place] 00 mouth once Medical daily Branch METOPROLOL 2022-0 Yes [id number] Take 1/2 Univers TARTRATE 25 2-08 (one-half) it y of mg tablet 00:00: tablet by [place] 00 mouth once Medical daily Branch METOPROLOL 2022-0 Yes [id number] Take 1/2 Univers TARTRATE 25 2-08 (one-half) it y of mg tablet 00:00: tablet by [place] 00 mouth once Medical daily Branch METOPROLOL 2022-0 Yes [id number] Take 1/2 Univers TARTRATE 25 2-08 (one-half) it y of mg tablet 00:00: tablet by [place] 00 mouth once Medical daily Branch METOPROLOL 2022-0 Yes [id number] Take 1/2 Univers TARTRATE 25 2-08 (one-half) it y of mg tablet 00:00: tablet by [place] 00 mouth once Medical daily Branch METOPROLOL 3-0 Yes [id number] Take 1/2 Univers TARTRATE 25 2-08 (one-half) it y of mg tablet 00:00: tablet by [place] 00 mouth once Medical daily Branch METOPROLOL 3-0 Yes [id number] Take 1/2 Univers TARTRATE 25 2-08 (one-half) it y of mg tablet 00:00: tablet by [place] 00 mouth once Medical daily Branch METOPROLOL 3-0 Yes [id number] Take 1/2 Univers TARTRATE 25 2-08 (one-half) it y of mg tablet 00:00: tablet by [place] 00 mouth once Medical daily Branch METOPROLOL 2022-0 Yes [id number] Take 1/2 Univers TARTRATE 25 2-08 (one-half) it y of mg tablet 00:00: tablet by [place] 00 mouth once Medical daily Branch METOPROLOL 2022-0 Yes [id number] Take 1/2 Univers TARTRATE 25 2-08 (one-half) it y of mg tablet 00:00: tablet by [place] 00 mouth once Medical daily Branch METOPROLOL 2022-0 Yes [id number] Take 1/2 Univers TARTRATE 25 2-08 (one-half) it y of mg tablet 00:00: tablet by [place] 00 mouth once Medical daily Branch METOPROLOL 2022-0 Yes [id number] Take 1/2 Univers TARTRATE 25 2-08 (one-half) it y of mg tablet 00:00: tablet by [place] 00 mouth once Medical daily Branch METOPROLOL 2022-0 Yes [id number] Take 1/2 Univers TARTRATE 25 2-08 (one-half) it y of mg tablet 00:00: tablet by [place] 00 mouth once Medical daily Branch METOPROLOL 2022-0 2022- No [id number] Take 1/2 Univers TARTRATE 25 2-08 05-31 (one-half) i ty of mg tablet 00:00: 00:00 tablet by Mir mcgee 00 :00 mouth once Medical daily Branch miconazole 2021-0 Yes [id number] 100mg Insert 1 Univers 100 mg 7-06 Suppositor ity of vaginal 00:00: y into [place] suppository 00 vagina at [facility] bedtime. Branch miSOPROStoL 2021-0 Yes [id number] Take one Univers 200 mcg 7-06 tablet ity of tablet 00:00: night [place] 00 before Medical procedure, Branch then take one tablet morning of procedure miconazole 2021-0 Yes [id number] 100mg Insert 1 Univers 100 mg 7-06 Suppositor ity of vaginal 00:00: y into [place] suppository 00 vagina at [facility] bedtime. Branch miSOPROStoL 2021-0 Yes [id number] Take one Univers 200 mcg 7-06 tablet ity of tablet 00:00: night [place] 00 before Medical procedure, Branch then take one tablet morning of procedure miconazole 2021-0 Yes [id number] 100mg Insert 1 Univers 100 mg 7-06 Suppositor ity of vaginal 00:00: y into [place] suppository 00 vagina at [facility] bedtime. Branch miSOPROStoL 2021-0 Yes [id number] Take one Univers 200 mcg 7-06 tablet ity of tablet 00:00: night [place] 00 before Medical procedure, Branch then take one tablet morning of procedure miconazole 2021-0 Yes [id number] 100mg Insert 1 Univers 100 mg 7-06 Suppositor ity of vaginal 00:00: y into [place] suppository 00 vagina at [facility] bedtime. Branch miSOPROStoL 2021-0 Yes [id number] Take one Univers 200 mcg 7-06 tablet ity of tablet 00:00: night [place] 00 before Medical procedure, Branch then take one tablet morning of procedure miconazole 2021-0 Yes [id number] 100mg Insert 1 Univers 100 mg 7-06 Suppositor ity of vaginal 00:00: y into [place] suppository 00 vagina at [facility] bedtime. Branch miSOPROStoL 2021-0 Yes [id number] Take one Univers 200 mcg 7-06 tablet ity of tablet 00:00: night [place] 00 before Medical procedure, Branch then take one tablet morning of procedure miconazole 2021-0 Yes [id number] 100mg Insert 1 Univers 100 mg 7-06 Suppositor ity of vaginal 00:00: y into [place] suppository 00 vagina at [facility] bedtime. Branch miSOPROStoL 2021-0 Yes [id number] Take one Univers 200 mcg 7-06 tablet ity of tablet 00:00: night [place] 00 before Medical procedure, Branch then take one tablet morning of procedure miconazole 2021-0 3- No [id number] 100mg Insert 1 Univers 100 mg 7-06 -14 Suppositor ity of vaginal 00:00: 00:00 y into [place] suppository 00 :00 vagina at [facility] bedtime. Branch miSOPROStoL 3- No [id number] Take one Univers 200 mcg 7-06 02-14 tablet ity of tablet 00:00: 00:00 night [place] 00 :00 before Medical procedure, Branch then take one tablet morning of procedure miconazole 2021-0 3- No [id number] 100mg Insert 1 Univers 100 mg 7-06 02-14 Suppositor ity of vaginal 00:00: 00:00 y into [place] suppository 00 :00 vagina at [facility] bedtime. Branch miSOPROStoL 2022- No [id number] Take one Univers 200 mcg 11-20 tablet ity of tablet 00:00: 00:00 night [place] 00 :00 before Medical procedure, Branch then take one tablet morning of procedure miconazole 2022- No [id number] 100mg Insert 1 Univers 100 mg 11-20 Suppositor ity of vaginal 00:00: 00:00 y into [place] suppository 00 :00 vagina at [facility] bedtime. Branch miSOPROStoL 2022- No [id number] Take one Univers 200 mcg 11-20 tablet ity of tablet 00:00: 00:00 night [place] 00 :00 before Medical procedure, Branch then take one tablet morning of procedure miconazole 2021-2022- No [id number] 100mg Insert 1 Univers 100 mg 11-20 Suppositor ity of vaginal 00:00: 00:00 y into [place] suppository 00 :00 vagina at [facility] bedtime. Branch miSOPROStoL 2022- No [id number] Take one Univers 200 mcg 11-20 tablet ity of tablet 00:00: 00:00 night [place] 00 :00 before Medical procedure, Branch then take one tablet morning of procedure fluconazole 2021-0 Yes [id number] 150mg Take 1 Univers 150 mg 6-20 tablet by ity of tablet 00:00: mouth [place] 00 every 72 Medical ([facility] wo) hours. fluconazole 2021-0 Yes [id number] 150mg Take 1 Univers 150 mg 6-20 tablet by ity of tablet 00:00: mouth [place] 00 every 72 Medical ([facility] wo) hours. fluconazole 2021-0 Yes [id number] 150mg Take 1 Univers 150 mg 6-20 tablet by ity of tablet 00:00: mouth [place] 00 every 72 Medical ([facility] wo) hours. fluconazole 2021-0 Yes [id number] 150mg Take 1 Univers 150 mg 6-20 tablet by ity of tablet 00:00: mouth [place] 00 every 72 Medical ([facility] wo) hours. fluconazole 2021-0 Yes [id number] 150mg Take 1 Univers 150 mg 6-20 tablet by ity of tablet 00:00: mouth [place] 00 every 72 Medical ([facility] wo) hours. fluconazole 0 Yes [id number] 150mg Take 1 Univers 150 mg 6-20 tablet by ity of tablet 00:00: mouth [place] 00 every 72 Medical ([facility] Branch wo) hours. fluconazole 2022- No [id number] 150mg Take 1 Univers 150 mg 6-20 02-14 tablet by ity of tablet 00:00: 00:00 mouth [place] 00 :00 every 72 Medical ([facility] Branch wo) hours. fluconazole 2021-2022- No [id number] 150mg Take 1 Univers 150 mg 6-20 02-14 tablet by ity of tablet 00:00: 00:00 mouth [place] 00 :00 every 72 Medical (seventy-t Branch wo) hours. fluconazole 2022- No [id number] 150mg Take 1 Univers 150 mg 6-20 02-14 tablet by ity of tablet 00:00: 00:00 mouth [place] 00 :00 every 72 Medical (seventy-t Branch wo) hours. fluconazole 2022- No [id number] 150mg Take 1 Univers 150 mg 6-20 02-14 tablet by ity of tablet 00:00: 00:00 mouth [place] 00 :00 every 72 Medical (seventy-t Branch wo) hours. metoprolol Yes [id number] 12.5mg Take 0.5 Univers tartrate 25 5-03 tablets by it y of mg tablet 00:00: mouth [place] 00 daily. Medical Branch metoprolol Yes [id number] 12.5mg Take 0.5 Univers tartrate 25 5-03 tablets by it y of mg tablet 00:00: mouth [place] 00 daily. Medical Branch metoprolol 0 Yes [id number] 12.5mg Take 0.5 Univers tartrate 25 5-03 tablets by it y of mg tablet 00:00: mouth [place] 00 daily. Medical Branch metoprolol 0 Yes [id number] 12.5mg Take 0.5 Univers tartrate 25 5-03 tablets by it y of mg tablet 00:00: mouth [place] 00 daily. Medical Branch metoprolol 0 3- No [id number] 12.5mg Take 0.5 Univers tartrate 25 5-03 02-08 tablets by i ty of mg tablet 00:00: 00:00 mouth [place] 00 :00 daily. Medical Branch ferrous 2020-0 Yes [id number] 324mg Take 1 Un bruce sulfate 324 1-26 tablet by ity of mg (65 mg 00:00: mouth 2 [place] iron) EC 00 (two) Medical tablet times Branch daily with meals. ferrous 0 Yes [id number] 324mg Take 1 Un bruce sulfate 324 1-26 tablet by ity of mg (65 mg 00:00: mouth 2 [place] iron) EC 00 (two) Medical tablet times Branch daily with meals. ferrous 0 Yes [id number] 324mg Take 1 Un bruce sulfate 324 1-26 tablet by ity of mg (65 mg 00:00: mouth 2 [place] iron) EC 00 (two) Medical tablet times Branch daily with meals. ferrous Yes [id number] 324mg Take 1 Un bruce sulfate 324 1-26 tablet by ity of mg (65 mg 00:00: mouth 2 [place] iron) EC 00 (two) Medical tablet times Branch daily with meals. ferrous Yes [id number] 324mg Take 1 Un bruce sulfate 324 1-26 tablet by ity of mg (65 mg 00:00: mouth 2 [place] iron) EC 00 (two) Medical tablet times Branch daily with meals. ferrous Yes [id number] 324mg Take 1 Un bruce sulfate 324 1-26 tablet by ity of mg (65 mg 00:00: mouth 2 [place] iron) EC 00 (two) Medical tablet times Branch daily with meals. ferrous 2022- No [id number] 324mg Take 1 U nivers sulfate 324 1-26 02-14 tablet by it y of mg (65 mg 00:00: 00:00 [place] 2 [place] EC 00 :00 (two) Medical tablet times Branch daily with meals. ferrous 3- No [id number] 324mg Take 1 U nivers sulfate 324 1-26 02-14 tablet by it y of mg (65 mg 00:00: 00:00 mouth 2 [place] EC 00 :00 (two) Medical tablet times Branch daily with meals. ferrous 3- No [id number] 324mg Take 1 U nivers sulfate 324 1-26 02-14 tablet by it y of mg (65 mg 00:00: 00:00 mouth 2 [place] EC 00 :00 (two) Medical tablet times [place] daily with meals. ferrous 2020-0 3- No [id number] 324mg Take 1 U nivers sulfate 324 06-12 tablet by it y of mg (65 mg 00:00: 00:00 mouth 2 [place] EC 00 :00 (two) Medical tablet times [place] daily with meals. omeprazole 2018-0 Yes Univers 40 mg 5-02 ity of capsule 00:00: [place] [address] Medical [place] omeprazole 2019-0 Yes Univers 40 mg 5-02 ity of capsule 00:00: [place] [address] Medical [place] omeprazole 2019-0 Yes Univers 40 mg 5-02 ity of capsule 00:00: [place] [address] Medical [place] omeprazole 2019-0 Yes Univers 40 mg 5-02 ity of capsule 00:00: [place] [address] Medical Branch omeprazole 2019-0 Yes Univers 40 mg 5-02 ity of capsule 00:00: [place] [address] Medical [place] omeprazole 2019-0 Yes Univers 40 mg 5-02 ity of capsule 00:00: [place] [address] Medical Branch omeprazole 2019-0 2023- No Univer s 40 mg 5-02 02-14 ity of capsule 00:00: 00:00 [place] 00 :00 Medical [facility] omeprazole 2019-0 2023- No Univer s 40 mg 5-02 02-14 ity of capsule 00:00: 00:00 [place] 00 :00 [facility] omeprazole 2019-0 2023- No Univer s 40 mg 5-02 02-14 ity of capsule 00:00: 00:00 [place] 00 :00 Medical [facility] omeprazole 2019-0 2023- No Univer s 40 mg 5-02 02-14 ity of capsule 00:00: 00:00 [place] 00 :00 [facility] Immunizations Ordered Filled Immunization Date Status Comments Sour e Immunization Name Name Influenza Virus 2022-04-23 Completed Universit y of Vaccine [place] 00:00:00 [place] [facility] IM, Preserv and ABX Branc h Free 18-64 YRS Influenza Virus 2022-04-23 Completed Universit y of Vaccine [place] 00:00:00 [place] [facility] IM, Preserv and ABX Branc h Free 18-64 YRS Influenza Virus 2022-04-23 Completed Universit y of Vaccine [place] 00:00:00 [place] [facility] IM, Preserv and ABX Branc h [...] y of Vaccine Quad .5 mL 00:00:00 [place] [facility] IM 6+ MO Branch Influenza Virus [...] y of Vaccine [place] .5 mL 00:00:00 [place] [facility] 6+ MO Branch TDAP 2015-07-02 Completed University of 00:00:00 [facility] TDAP 2015-07-02 Completed University of 00:00:00 [facility] TDAP 2015-07-02 Completed University of 00:00:00 [facility] TDAP 2015-07-02 Completed University of 00:00:00 [facility] TDAP 2015-07-02 Completed University of 00:00:00 [place] [facility] [place] TDAP 2015-07-02 Completed University of 00:00:00 [facility] TDAP 2015-07-02 Completed University of 00:00:00 [place] [facility] TDAP 2015-07-02 Completed University of 00:00:00 [place] [facility] TDAP 2015-07-02 Completed University of 00:00:00 [place] [facility] TDAP 2015-07-02 Completed University of 00:00:00 [place] [facility] TDAP 2015-07-02 Completed University of 00:00:00 [place] [facility] TDAP 2015-07-02 Completed University of 00:00:00 [place] [facility] TDAP 2015-07-02 Completed University of 00:00:00 [place] [facility] TDAP 2015-07-02 Completed University of 00:00:00 [place] [facility] TDAP 2015-07-02 Completed University of 00:00:00 [place] [facility] TDAP 2015-07-02 Completed University of 00:00:00 [place] [facility] TDAP 2015-07-02 Completed University of 00:00:00 [place] [facility] TDAP 2015-07-02 Completed University of 00:00:00 [place] [facility] TDAP 2015-07-02 Completed University of 00:00:00 [place] [facility] TDAP 2015-07-02 Completed University of 00:00:00 [place] [facility] TDAP 2015-07-02 Completed University of 00:00:00 [place] [facility] TDAP 2015-07-02 Completed University of 00:00:00 [place] [facility] TDAP 2015-07-02 Completed University of 00:00:00 [place] [facility] TDAP 2015-07-02 Completed University of 00:00:00 [place] [facility] TDAP 2015-07-02 Completed University of 00:00:00 [place] [facility] TDAP 2015-07-02 Completed University of 00:00:00 [place] [facility] Td 1996-12-28 Completed University of 00:00:00 [place] [facility] Td 1996-12-28 Completed University of 00:00:00 [place] [facility] Td 1996-12-28 Completed University of 00:00:00 [place] [facility] TD, NOS 1996-12-28 Completed University of 00:00:00 [place] [facility] TD, NOS 1996-12-28 Completed University of 00:00:00 [place] [facility] TD, NOS 1996-12-28 Completed University of 00:00:00 [place] [facility] TD, NOS 1996-12-28 Completed University of 00:00:00 [place] [facility] TD, NOS 1996-12-28 Completed University of 00:00:00 [place] [facility] TD, NOS 1996-12-28 Completed University of 00:00:00 [place] [facility] TD, NOS 1996-12-28 Completed University of 00:00:00 [place] [facility] TD, NOS 1996-12-28 Completed University of 00:00:00 [place] [facility] TD, NOS 1996-12-28 Completed University of 00:00:00 [place] [facility] TD, NOS 1996-12-28 Completed University of 00:00:00 [place] [facility] TD, NOS 1996-12-28 Completed University of 00:00:00 [place] [facility] TD, NOS 1996-12-28 Completed University of 00:00:00 [place] [facility] TD, NOS 1996-12-28 Completed University of 00:00:00 [place] [facility] TD, NOS 1996-12-28 Completed University of 00:00:00 [place] [facility] TD, NOS 1996-12-28 Completed University of 00:00:00 [place] [facility] TD, NOS 1996-12-28 Completed University of 00:00:00 [place] [facility] TD, NOS 1996-12-28 Completed University of 00:00:00 [place] [facility] TD, NOS 1996-12-28 Completed University of 00:00:00 [place] [facility] TD, NOS 1996-12-28 Completed University of 00:00:00 [place] [facility] TD, NOS 1996-12-28 Completed University of 00:00:00 [place] [facility] TD, NOS 1996-12-28 Completed University of 00:00:00 [place] [facility] TD, NOS 1996-12-28 Completed University of 00:00:00 [facility] TD, NOS 1996-12-28 Completed University of 00:00:00 [facility] Vital Signs Vital Name Observation Time Observation Value Comments Source Systolic blood 2022-11-24 19:49:00 108 mm[Hg] Univer sity of pressure [facility] Diastolic blood 2022-11-24 19:49:00 74 mm[Hg] Unive rsity of pressure [facility] Heart rate 2022-11-24 19:48:00 90 /min [facility] Body height 2022-11-24 19:48:00 188 cm [facility] Body weight 2022-11-24 19:48:00 103.193 kg [facility] BMI 2022-11-24 19:48:00 29.21 kg/m2 Universi ty [facility] [place] [facility] Oxygen saturation in 2022-11-24 19:48:00 97 /min University of Arterial blood by [place] [facility] Pulse oximetry Branch Systolic blood 2022-09-08 20:43:00 128 mm[Hg] Univer sity of pressure [place] [facility] Diastolic blood 2022-09-08 20:43:00 78 mm[Hg] Unive rsity of pressure [place] [facility] Heart rate 2022-09-08 20:43:00 81 /min [facility] [place] [facility] Body temperature 2022-09-08 20:43:00 36.72 Alysa Univ ersity of [place] [facility] Respiratory rate 2022-09-08 20:43:00 16 /min Univ ersity of [place] [facility] Body weight 2022-09-08 20:43:00 105.688 kg [facility]i [facility] [place] [facility] BMI 2022-09-08 20:43:00 29.92 kg/m2 [facility] [place] [facility] Oxygen saturation in 2022-09-08 20:43:00 99 /min University of Arterial blood by [facility] Pulse oximetry Branch Systolic blood 2022-08-21 14:07:00 106 mm[Hg] Univer sity of pressure [place] [facility] Diastolic blood 2022-08-21 14:07:00 68 mm[Hg] Unive rsity of pressure [place] [facility] Heart rate 2022-08-21 14:07:00 77 /min [facility] [place] [facility] Body temperature 2022-08-21 14:07:00 36.44 Alysa Univ ersity of [place] [facility] Body height 2022-08-21 14:07:00 188 cm [facility] [place] [facility] Body weight 2022-08-21 14:07:00 105.688 kg [facility] [place] [facility] BMI 2022-08-21 14:07:00 29.92 kg/m2 [facility] [place] [facility] Oxygen saturation in 2022-08-21 14:07:00 100 /min University of Arterial blood by [facility] Pulse oximetry Branch Systolic blood 2022-07-24 15:49:00 109 mm[Hg] Univer sity of pressure [place] [facility] Diastolic blood 2022-07-24 15:49:00 60 mm[Hg] Unive rsity of pressure [place] [facility] Heart rate 2022-07-24 15:49:00 91 /min [facility] [place] [facility] Body temperature 2022-07-24 15:49:00 36.44 Alysa Univ [facility] [place] [facility] Respiratory rate 2022-07-24 15:49:00 18 /min Univ ersity of [place] [facility] Body height 2022-07-24 15:49:00 188 cm [facility] [place] [facility] Body weight 2022-07-24 15:49:00 106.913 kg [facility] [place] [facility] BMI 2022-07-24 15:49:00 30.26 kg/m2 [facility] [place] [facility] Oxygen saturation in 2022-07-24 15:49:00 99 /min University of Arterial blood by [place] [facility] cornelius Pulse oximetry Branch Systolic blood 2022-07-01 17:11:00 120 mm[Hg] Univer sity of pressure [place] [facility] Diastolic blood 2022-07-01 17:11:00 81 mm[Hg] Unive rsity of pressure [place] [facility] Heart rate 2022-07-01 17:11:00 110 /min [facility] [place] [facility] Body temperature 2022-07-01 17:11:00 36.67 Alysa Univ ers[facility] [place] [facility] Respiratory rate 2022-07-01 17:11:00 20 /min Univ ersity of [place] [facility] Body height 2022-07-01 17:11:00 188 cm [facility] [place] [facility] Body weight 2022-07-01 17:11:00 103.375 kg [facility] [place] [facility] BMI 2022-07-01 17:11:00 29.26 kg/m2 [facility] [place] [facility] Oxygen saturation in 2022-07-01 17:11:00 100 /min University of Arterial blood by [place] [facility] cornelius Pulse oximetry Branch Systolic blood 2021-11-27 14:35:00 110 mm[Hg] Univer sity of pressure [place] [facility] Diastolic blood 2021-11-27 14:35:00 75 mm[Hg] Unive rsity of pressure [place] [facility] Heart rate 2021-11-27 14:35:00 71 /min [facility]i ty [facility] [place] [facility] Body temperature 2021-11-27 14:35:00 37.11 Alysa Univ ersity [facility] [place] [facility] Body height 2021-11-27 14:35:00 188 cm [facility] Body weight 2021-11-27 14:35:00 111.585 kg [facility] BMI 2021-11-27 14:35:00 31.58 kg/m2 [facility] Procedures Procedure Date / Time Performed Performing Clinician Lalit castillo CT ABDOMEN PELVIS W 2022-08-15 16:40:07 Lorena Fisher [facility] CONTRAST [facility] HB CREATININE 2022-08-15 16:25:00 Lorena Fisher [facility] SERUM/BLOOD FOR [facility] IMAGING NOTICE OF PRIVACY 2022-08-15 15:53:39 Doctor Unassigned, No [facility] CONSENT/REFUSAL FOR 2022-08-15 15:53:14 Doctor Unassigned, No [facility] DIAGNOSIS AND [facility] TREATMENT ASSIGNMENT OF BENEFITS 2022-08-15 15:52:49 Doctor Unassigned, No [facility] GC & CHLAMYDIA 2022-07-24 16:24:00 [facility] AMPLIFIED ASSAY [facility] GALV ONLY - VAGINAL 2022-07-24 16:24:00 [facility] ACID TESTING HSV 1&2, VZV NAAT 2022-07-24 16:24:00 [facility]CIAL 2022-07-24 15:39:32 Doctor Unassigned, No [facility] POLICY [facility] POCT URINALYSIS 2022-07-01 17:50:00 [facility] URINE CULTURE 2022-07-01 17:45:00 [facility] GALV ONLY - VAGINAL 2022-07-01 17:45:00 [facility]LEIC [facility] ACID TESTING ASSIGNMENT OF BENEFITS 2022-07-01 17:02:49 Doctor Unassigned, No [facility] DISCLOSURE AND 2021-11-27 05:01:00 Doctor Unassigned, No [facility] CONSENT, MEDICAL AND Name Medical [facility] SURGICAL PROCEDURES POCT TEST 2021-11-27 00:00:[address] [facility] Encounters Start End Encounter Admission Attending Care Care Encounter Source Date/Time Date/Time Type Type Clinicians Facility Department ID 2021-03-17 Emergency [facility] [id number] Univers 07:42:[address] [facility] 2021-03-16 Emergency [facility] [id number] Univers 05:35:[address] [facility] 2021-03-15 Emergency [facility] [id number] Univers 07:15:[address] [facility] 2022-11-24 2022-11-24 Outpatient R KRISTNI [facility] [id number] Univers 14:30:00 15:02:[address] [facility] 2022-11-24 2022-11-24 Office Kristin [facility] [id number] Univers 14:30:00 15:02:34 Visit [facility] [id number] it y of [place] 4.2.7.2.686 Vaibhav as APRIL?BLEA [phone] [address] MEDICAL OFFICE BUILDING 2022-10-15 2022-10-15 Refeulalia Haider [facility] 1.2.840.114 [id number] Univers 00:00:00 00:00:00 , [facility] [id number] ity of [place] [id number] Vaibhav as APRIL?BLEA [phone] [address] MEDICAL OFFICE BUILDING 2022-10-15 2022-10-15 Refill Silas Martins 1.2.840.114 [id number] Univers 00:00:00 00:00:00 Y PEDIATRIC [id number] ity [id number] [place] [id number] [address] CARE CLINIC 2022-09-08 2022-09-08 Urgent Adair Hope [facility] [id number] Univers 15:40:00 16:00:00 Care Unknown, Attending HEALTH [id number] ity [facility] [id number] Vaibhav as APRIL?BLEA [phone] Nh reid CHRISTIE [address] [place] MEDICAL OFFICE BUILDING 2022-09-08 2022-09-08 Outpatient R HERMINIA [facility] [id number] Univers 15:40:00 15:40:00 [facility]22-08-[address] [facility] 1.2.840.114 [id number] Univers 09:40:00 09:40:00 Visit [id number] [facility] [id number] Vaibhav as APRIL?BLEA [id number] Nh reid [address] MEDICAL OFFICE [facility] 2022-08-21 2022-08-21 Outpatient R MELIZA [facility] [id number] Univers 09:30:00 09:30:00 , SUSAN villanueva [facility] 2022-08-21 2022-08-21 Outpatient R SALVADOR [facility] [id number] Univers 09:40:00 09:25:29 SALVADOR EVGENY [facility] 2022-08-15 2022-08-15 [facility] [id number] Univers 10:53:47 23:59:00 [facility]ORE[facility] 2022-08-15 2022-08-15 [facility] 1.2.840.114 [id number] Univers 10:50:00 23:59:00 Encounter [facility] [id number] ity [facility] [id number] [place] [facility] [id number] [address] 2022-08-05 2022-08-05 Outpatient R MELIZA [facility] [id number] Univers 11:00:00 11:00:00 , SUSAN villanueva y [facility] 2022-07-28 2022-07-28 [facility] 1.2.840.114 [id number] Univers 00:00:00 00:00:00 , Susan HEALTH [id number] ity of [place] 4.2.7.2.686 Vaibhav as APRIL?BLEA [id number] [address] MEDICAL OFFICE BUILDING 2022-07-24 2022-07-24 Outpatient R [facility] [id number] [facility] [place] [facility] 09:45:00 10:29:18 , SUSAN it y of [facility] 2022-07-24 2022-07-[address] [facility] 1.2.840.114 [id number] Univers 09:45:00 10:29:18 [facility] [id number] ity of [facility] [id number] Vaibhav as APRIL?BLEA [id number] [address] MEDICAL OFFICE [facility] 2022-07-24 2022-07-24 Orders Doctor JSES 1.2.840.114 [id number] Univers 00:00:00 00:00:00 Only Unassigned, LEROY [id number] ity of [place] [facility] [id number] Vaibhav as [phone] [address] 2022-07-16 2022-07-[address] [facility] 1.2.840.114 [id number] Univers 00:00:00 00:00:00 , Susan HEALTH [id number] ity of [place] 4.2.7.2.686 Vaibhav as APRIL?BLEA [id number] [address] MEDICAL OFFICE [facility] 2022-07-03 2022-07-[address] [facility] 1.2.840.114 [id number] Univers 00:00:00 00:00:00 Management , Susan HEALTH [id number] ity of [place] [facility] 4.2.7.2.686 [place] as APRIL?BLEA [id number] [address] MEDICAL OFFICE [facility] 2022-07-01 2022-07-01 Outpatient R [facility] [id number] [facility] 11:15:00 11:41:57 , SUSAN it y of [facility] 2022-07-01 2022-07-[address] [facility] 1.2.840.114 [id number] Univers 11:15:00 11:41:57 Visit , Susan GROSS 350.1.13.10 ity of [place] 4.2.7.2.686 Vaibhav as APRIL?BLEA [id number] [facility] [address] MEDICAL OFFICE BUILDING 2022-07-01 2022-07-01 Orders Doctor JESS 1.2.840.114 [id number] Univers 00:00:00 00:00:00 Only Unassigned, LEROY 350.1.13.10 ity of [place] [facility] 4.2.7.2.686 Vaibhav as [phone] [facility] 009 Branch 2022-06-25 2022-06-25 Outpatient R KLEBER [facility] [id number] Univers 11:00:00 11:00:00 , DUNG [facility] 2022-06-24 2022-06-24 Silas Ulloa 1.2.840.114 [id number] Univers 00:00:00 00:00:00 Y PEDIATRIC 350.1.13.10 ity [place].2.686 [place] [id number] [facility] PRIMARY 314 Branch CARE CLINIC 2022-06-19 2022-06-19 Outpatient SILAS GUEVARA [facility] [id number] Univers 14:30:00 14:30:00 ity of [facility] 2022-06-05 2022-06-05 Outpatient Maia GOODRICH [facility] [id number] Univers 10:30:00 10:30:00 TYLER [facility] 2022-06-03 2022-06-03 LEILA Simmons 1.2.840.114 [id number] Univers 00:00:00 00:00:00 Management Stefanie MERINO [id number] ity [place] 4.2.7.2.686 [place] [phone] [id number] Branch 2022-03-20 2022-03-20 Outpatient R MELIZA [facility] [id number] Univers 11:00:00 11:00:00 , SUSAN it y [facility] 2021-11-27 2021-11-27 Office Laura [facility] [id number] Univers 09:15:00 10:42:35 Visit Oleg [place] 350.1.13.10 i ty [facility] 4.2.7.2.686 [place] [id number] [address] 2021-11-27 2021-11-27 Outpatient R [facility] [id number] Univers 09:15:00 10:42:35 ity of [facility] 2021-11-27 2021-11-27 Outpatient R [facility] [id number] Univers 09:15:00 09:15:00 ity of [facility] 2021-11-27 2021-11-27 Outpatient R [facility] [id number] Univers 09:15:00 09:15:[address] [facility] 2021-11-27 2021-11-27 Orders Doctor JESS 1.2.840.114 [id number] Univers 00:00:00 00:00:00 Only Unassigned, LEROY 350.1.13.10 ity of [place] [facility] 4.2.7.2.686 Vaibhav as [phone] [address] 2021-11-20 2021-11-20 Outpatient R KP [facility] [id number] Univers 10:45:00 11:09:[address] [facility] 2021-11-20 2021-11-20 [facility] [id number] Univers 10:45:00 11:09:12 Visit [place] IN[place] 350.1.13.10 i ty of [facility] 4.2.7.2.686 [place] [id number] [address] 2021-11-04 2021-11-04 Case Kp [facility] [id number] Univers 00:00:00 00:00:00 Management [place] IN[place] [id number] ity of [facility] 4.2.7.2.686 [place] [phone] Nh dical NAL 134 [facility] 2021-10-31 2021-10-31 Certified Ophthalmic Technician Adriana [facility] Main [facility] 1.2.8 40.114 [id number] Univers 12:00:00 12:15:00 Visit DannieevaTyler thompsonBOY 350.1.13.10 ity of [place] 4.2.7.2.686 [place] [id number] Nh dical NAL 353 [facility] 2021-10-31 2021-10-31 Outpatient R KP [facility] [id number] Univers 10:15:00 [facility]15[facility] 2021-10-31 2021-10-31 Office Kp [facility] [id number] Univers 10:15:00 11:15:11 Visit [place] HENNY 350.1.13.10 i ty of [facility] 4.2.7.2.686 [place] [phone] Nh dical NAL 134 [facility] 2021-10-31 2021-10-31 Outpatient R KP [facility] [id number] Univers 10:15:00 11:15:11 [facility] 2021-10-24 2021-10-24 Outpatient R KP [facility] [id number] Univers 11:15:00 11:15:00 [facility] 2021-10-08 2021-10-08 Outpatient R MERYL [facility] [id number] Univers 09:30:00 09:30:00 MINE [facility] 2021-09-18 2021-09-18 Telephone Silas Martins 1.2.840.114 [id number] Univers 00:00:00 00:00:00 Y PEDIATRIC 350.1.13.10 [place]2.7.2.686 [place] [id number] [place] [address] Branch CARE CLINIC 2021-09-17 2021-09-17 Office Silas Martins 1.2.840.114 [id number] Univers 13:15:00 13:48:45 Visit Y PEDIATRIC 350.1.13.10 [place]2.7.2.686 [place] [id number] [address] 2021-09-17 2021-09-17 Outpatient Maia CAMARILLOESILAS [facility] [id number] Univers 13:15:00 13:48:[address] [facility] 2021-09-17 2021-09-17 Outpatient SILAS GUEVARA [facility] [id number] Univers 13:15:00 13:15:[address] [facility] 2021-09-08 2021-09-08 Refeulalia GLORIA 1.2.840.114 [id number] Univers 00:00:00 00:00:00 , Susan PEDIATRIC 350.1.13.10 ity [place].2.7.2.686 [place] [id number] [address] 2021-08-26 2021-08-26 Outpatient Maia ROALND [facility] [id number] Univers 08:45:00 08:45:00 ELOY [facility] 2021-08-08 2021-08-08 Telephone [facility] 1.2.840.114 [id number] Univers 00:00:00 00:00:00 Alan CISNEROS 350.1.13.10 ity [facility] [id number] [place] C[place] AT [id number] [address] 2021-07-30 2021-07-30 Outpatient Maia COHEN [facility] [id number] Univers 00:00:00 00:00:[address] [facility] 2021-07-16 2021-07-16 Outpatient Maia COHEN [facility] [id number] Univers 16:51:18 23:59:[address] [facility] 2021-07-16 2021-07-16 [facility] Amaya [facility] [id number] Univers 16:51:18 23:59:00 Encounter Alan CISNEROS 350.1.13.10 ity of [facility] 4.2.7.2.686 [place] CENTER AT [phone] Nh sarahmarco a BOYER 809 [facility] 2021-07-16 2021-07-16 Office Amaya [facility] 1.2.840.114 [id number] Univers 15:50:00 16:00:00 Visit Alan AMELIA 350.1.13.10 ity of [facility] [place] AT [phone] Nh sarahmarco a BOYER 198 [facility] 2021-07-16 2021-07-16 Outpatient R AMAYA [facility] [id number] Univers 15:50:00 15:50:[address] [facility] 2021-05-28 2021-05-28 Outpatient R MERYL [facility] [id number] Univers 15:30:00 15:30:[address] [facility] 2021-05-21 2021-05-21 Outpatient R MELIZA [facility] [id number] Univers 11:00:00 11:00:00 , SUSAN villanueva [facility] 2021-04-18 2021-04-18 Outpatient R MELIZA [facility] [id number] Univers 11:15:00 11:57:00 , SUSAN locke [facility] 2021-04-18 2021-04-18 Office Meliza GLORIA 1.2.840.114 [id number] Univers 11:09:27 11:57:00 Visit , Susan PEDIATRIC 350.1.13.10 ity of [place] [phone] [facility] PRIMARY [address] CARE CLINIC 2021-04-18 2021-04-18 Outpatient R MELIZA [facility] [id number] Univers 11:15:00 11:15:00 , SUSAN locke [facility] 2021-04-18 2021-04-18 Orders Doctor MERCADO 1.2.840.114 [id number] Univers 00:00:00 00:00:00 Only Unassigned, LEROY 350.1.13.10 ity of [place] [facility] 4.2.7.2.686 Vaibhav as [phone] [address] 2021-02-01 2021-02-01 Outpatient R MELIZA [facility] [id number] Univers 16:00:00 16:00:00 , SUSAN it y of [facility] 2020-11-29 2020-11-29 Refill Meliza Ratliffin 1.2.840.114 [id number] 00:00:00 00:00:00 , Susan Pediatric 350.1.13.10 M s and 4.2.7.2.[phone] 2020-11-29 2020-11-29 Refill Meliza Faizan 1.2.840.114 [id number] Univers 00:00:00 00:00:00 , Susan Pediatric 350.1.13.10 it[place] [id number] [address] 2020-11-16 2020-11-16 Refill Meliza Ratliffin 1.2.840.114 [id number] 00:00:00 00:00:00 , Susan Pediatric 350.1.13.10 M s and 4.2.7.2.686 Adult [phone] [address] 2020-11-16 2020-11-16 Refill Meliza Ratliffin 1.2.840.114 85 [id number] Univers 00:00:00 00:00:00 , Susan Pediatric 350.1.13.10 ity of [place] [phone] [address] 2020-11-15 2020-11-15 Office Faizan Morris 1.2.840.114 [id number] 11:30:23 12:00:23 Visit Arcelia Pediatric 350.1.13.10 s and 4.2.7.2.[phone] [address] 2020-11-15 2020-11-15 Office Faizan Morris 1.2.840.114 [id number] [facility] 11:30:23 12:00:23 Visit Arcelia Pediatric 350.1.13.10 ity of [place] [phone] [address] 2020-11-15 2020-11-15 Outpatient Maia MORRIS [facility] [id number] [facility] 12:00:00 12:00:00 ARCELIA ity of [facility] 2020-11-14 2020-11-14 Telephone Kerry Collins 1.2.840.114 [id number] [facility] 00:00:00 00:00:00 Ali Pediatric 350.1.13.10 ity of [place] [id number] [address] 2020-11-13 2020-11-13 Patient Meliza Faizan 1.2.840.114 [id number] Univers 00:00:00 00:00:00 Secure Msg , Susan Pediatric 350.1.13.10 ity of [place] [phone] [address] 2020-11-13 2020-11-13 Patient Allen Faizan 1.2.840.114 [id number] Univers 00:00:00 00:00:00 Secure Msg , Susan Pediatric 350.1.13.10 ity of [place] and [place] [id number] [address] 2020-11-13 2020-11-13 Patient Allen Faizan 1.2.840.114 [id number] 00:00:00 00:00:00 Secure Msg , Susan Pediatric 350.1.13.10 M s and 4.2.7.2.[phone] [address] 2020-11-08 2020-11-08 Office Allen Faizan 1.2.840.114 [id number] Univers 11:09:23 12:22:47 Visit , Susan Pediatric 350.1.13.10 ity of [place]2.[place] [phone] [address] 2020-11-08 2020-11-08 Outpatient R MELIZA [facility] [id number] Univers 11:00:00 11:00:00 , SUSAN villanueva y of [facility] 2020-11-02 2020-11-02 Telephone Allen Faizan 1.2.840.114 [id number] Univers 00:00:00 00:00:00 , Susan Pediatric 350.1.13.10 ity of [place] [phone] [address] 2020-10-31 2020-10-31 Outpatient R NAOMI [facility] [id number] Univers 00:00:00 00:00:[address] [facility] 2020-10-25 2020-10-25 Office Meliza Gloria 1.2.840.114 [id number] Univers 11:05:46 12:04:53 Visit , Susan Pediatric 350.1.13.10 ity of [place].2.[place] [phone] [address] 2020-10-25 2020-10-25 Outpatient R MELIZA [facility] [id number] Univers 11:00:00 11:00:00 , SUSAN villanueva y of [facility] 2020-10-23 2020-10-23 Outpatient R MELIZA [facility] [id number] Univers 16:15:00 16:15:00 , SUSAN villanueva y [facility] 2020-08-28 2020-08-28 Outpatient R MELIZA [facility] [id number] Univers 15:45:00 15:45:00 , SUSAN villanueva y [facility] 2020-08-06 2020-08-06 [facility] 1.2.964.942 [id number] Univers 20:28:00 23:01:00 Rebeca Inman 350.1.13.10 ity of [place].2.[place] [phone] [place] [address] [address] 2020-08-06 2020-08-06 [facility] 1.2.840.114 [id number] Univers 00:00:00 00:00:00 Outreach Yves PRIMARY 350.1.13.10 i ty of [facility] 4.2.7.2.[place] [phone] Nh dical [facility] 2020-07-06 2020-07-06 Outpatient R [facility] [id number] Univers 14:00:00 14:00:[address] [facility] 2020-07-02 2020-07-02 Outpatient R [facility] [id number] Univers 08:00:00 08:00:00 ity of [facility] 2020-06-15 2020-06-15 Patient Kerry Collins [facility] 1.2.840.114 [id number] Univers 00:00:00 00:00:00 Secure Msg Rebeca FRIENDSWO 350.1.13.10 ity of [place].2.7.2.[place] P[place]IATRIC [phone] Nh dical AND ADULT [address] [facility] 2020-06-11 2020-06-11 Telephone Kerry Collins 1.2.840.114 [id number] Univers 00:00:00 00:00:00 Ali Pediatric 350.1.13.10 ity of [place] and [place].2.[place] [phone] [facility] Primary [address] Care [facility] 2020-06-08 2020-06-08 Office Meliza Gloria 1.2.840.114 [id number] Univers 14:45:00 15:00:00 Visit , Susan Pediatric 350.1.13.10 ity of [place] and [place].2.[place] [phone] [facility] Primary [address] Care [facility] 2020-06-08 2020-06-08 Outpatient R MELIZA [facility] [id number] Univers 14:45:00 14:45:00 , SUSAN it y of [facility] 2020-06-08 2020-06-08 Outpatient R KERRY COLLINS [facility] [id number] Univers 14:40:00 14:40:[address] [facility] 2020-06-08 2020-06-08 Nurse Nurse, Gaudencio Gloria 1.2.84 0.114 [id number] Univers 13:56:21 14:16:21 Visit Kerry Collins Pediatric 350.1.13.10 ity of [place] and 4[place].2.[place] [phone] [address] 2020-06-01 2020-06-01 Outpatient R [facility] [id number] Univers 10:40:00 10:40:00 , SUSAN locke [facility] 2020-05-30 2020-05-30 Office Meliza Gloria 1.2.840.114 [id number] Univers 15:50:39 17:01:06 Visit , Susan Simpson 350.1.13.10 ity of [place] and [place]2.7.2.[place] [phone] [address] 2020-05-30 2020-05-30 Outpatient R [facility] [id number] Univers 16:00:00 16:00:[address] [facility] 2020-05-25 2020-05-25 RefKerry Stokes 1.2.840.114 [id number] Univers 00:00:00 00:00:00 Rebeca Pediatric 350.1.13.10 ity of s and 4[place]2.7.2.[place] [id number] [address] 2020-05-25 2020-05-25 Kerry Butterfield 1.2.840.114 [id number] Univers 00:00:00 00:00:00 Rebeca Pediatric 350.1.13.10 ity of [place] and [place]2.7.2.[place] [phone] [address] 2020-04-16 2020-04-16 Telephone [facility] 1.2.840.114 [id number] Univers 00:00:00 00:00:00 Tyler Inman 350.1.13.10 i ty of [place].2.[place] Profess[place] [phone] Nh dical nal [address] [place] [address] 2020-04-10 2020-04-10 Nurse Nurse, [facility] 1.2.840.114 [id number] Univers 14:03:44 15:24:29 Visit Laura Rabia Oleg Inman 350.1.13.10 ity of [place].2.[place] [phone] Nh dical [address] 2020-04-10 2020-04-10 Outpatient R [facility] [id number] Univers 14:30:00 14:30:00 ity of [facility] 2020-04-09 2020-04-09 [facility]phone [facility] 1.2.948.510 [id number] Univers 00:00:00 00:00:00 iMne Inman 350.1.13.10 it[place] of [place].7.2.[place] [phone] Nh dical [address] 2020-04-06 2020-04-06 Outpatient R MELIZA [facility] [id number] Univers 11:45:00 11:45:00 , SUSAN it y of [facility] 2020-04-04 2020-04-04 Telephone [facility] 1.2.310.227 [id number] Univers 00:00:00 00:00:00 Mine Inman 350.1.13.10 ity of [place].2.[place] [phone] Nh dic[address] 2020-03-31 2020-03-31 Emergency [facility] 1.2.398.290 [id number] Univers 21:29:00 22:52:00 Bridget Inman 350.1.13.10 [place]2.[place] [phone] [facility] [address] 2020-03-31 2020-03-31 Orders Doctor MERCADO 1.2.840.114 [id number] Univers 00:00:00 00:00:00 Only Unassigned, LEROY 350.1.13.10 ity of [place] [facility] 4.2.7.2.686 Vaibhav as [phone] [place] [address] [address] 2020-03-30 2020-03-30 Telephone Galileo, [facility] 1.2.312.154 [id number] Univers 00:00:00 00:00:00 Mine Inman 350.1.13.10 it[place] of [place].2.[place] [phone] Nh dic[address] 2020-03-30 2020-03-30 Deya Kerry Collins 1.2.840.114 [id number] Univers 00:00:00 00:00:00 Ali Pediatric 350.1.13.10 ity of [place] and [place]2.[place].2.[place] [phone] [facility] Primary [facility] 2020-03-28 2020-03-28 Nurse Nurse, [facility] 1.2.840.114 [id number] Univers 10:16:37 10:31:37 Visit Mine Sheth 350.1.13.10 it[place] of [place] 4[place]2.7.2.[place] [phone] Nh dical nal [address] [place] [address] 2020-03-28 2020-03-28 Outpatient R [facility] [id number] Univers 10:30:00 10:30:00 ity of [facility] 2020-01-06 2020-01-06 Telephone [facility] 1.2.840.114 [id number] Univers 00:00:00 00:00:00 Tyler Inman 350.1.13.10 i ty of [place] 4[place].2.[place] [phone] Nh dic[address] 2019-12-27 2019-12-27 Telephone [facility] 1.2.895.452 [id number] Univers 00:00:00 00:00:00 Mine Inman 350.1.13.10 [place].2.[place] [phone] Nh dictn nal [address] [place] [address] 2019-12-26 2019-12-26 [facility] [id number] Univers 11:15:00 11:15:00 TYLER vila of [facility] 2019-12-21 2019-12-21 Office [facility] 1.2.840.114 [id number] Univers 13:53:18 14:45:28 Visit Mine Carlos Inman 350.1.13.10 it[place] of [place] 4[place].7.2.[place] [phone] [address] 2019-12-21 2019-12-21 Outpatient R AD, [facility] [id number] Univers 13:30:00 13:30:[address] [facility] 2019-12-21 2019-12-21 Orders Doctor JESS 1.2.840.114 [id number] Univers 00:00:00 00:00:00 Only Unassigned, LEROY 350.1.13.10 ity of [place] [facility] 4.2.7.2.686 Vaibhav as [phone] [address] 2019-12-13 2019-12-13 Telephone [facility] 1.2.840.114 [id number] Univers 00:00:00 00:00:00 Tyler Henny 350.1.13.10 i ty of [place] 4[place].7.2.[place] [phone] Nh dic[address] 2019-12-06 2019-12-06 Refill Doctor [facility] 1.2.840.114 [id number] Univers 00:00:00 00:00:00 Unassigned, Henny 350.1.13.10 ity of [place] 4[place]2.7.2.[place] [phone] Nh dical [address] 2019-12-06 2019-12-06 Refill Doctor Faizan 1.2.840.114 [id number] Univers 00:00:00 00:00:00 Unassigned, Pediatric 350.1.13.10 ity of [place] s and 4.2.7.2.[place] [phone] [facility] Primary [address] [facility] 2019-12-06 2019-12-06 Refill Doctor Faizan 1.2.840.114 [id number] Univers 00:00:00 00:00:00 Unassigned, Pediatric 350.1.13.10 ity of [place] s and 4.2.7.2.[place] [id number] [address] 2019-12-03 2019-12-03 Kerry Butterfield 1.2.840.114 [id number] Univers 00:00:00 00:00:00 Ali Pediatric 350.1.13.10 ity of [place] and 4.2.7.2.[place] [phone] [address] 2019-12-01 2019-12-01 Emergency [facility] 1.2.840.114 [id number] Univers 21:00:45 23:27:00 Gianni Yaritza Inman 350.1.13.10 i ty [place] 4[place].2.[place] [phone] [address] 2019-12-01 2019-12-01 Orders Doctor JESS 1.2.840.114 [id number] Univers 00:00:00 00:00:00 Only Unassigned, LEROY 350.1.13.10 ity of [place] [facility] 4.2.7.2.686 Vaibhav as [phone] [facility] [address] 2019-11-23 2019-11-23 Outpatient Maia GOODRICH [facility] [id number] Univers 14:30:00 14:30:00 TYLER ity of [facility] 2019-11-01 2019-11-01 Kerry Butterfield 1.2.840.114 [id number] Univers 00:00:00 00:00:00 Ali Pediatric 350.1.13.10 ity of [place] and 4[place]2.[place].2.[place] [phone] [address] 2019-10-05 2019-10-05 Kerry Butterfield 1.2.840.114 [id number] Univers 00:00:00 00:00:00 Ali Pediatric 350.1.13.10 ity of [place] and 4[place]2.7.2.[place] [phone] [address] 2019-08-29 2019-09-01 Urgent Arcelia Morris 1.2.840.1 14 [id number] Univers 11:10:52 09:07:40 Care Unknown, Attending Pediatric 350.1.13. 10 ity of [place] and [place]2.7.2.[place] [phone] [facility] 370 [facility] 2019-09-01 2019-09-01 Patient Quoc Faizan 1.2.840.114 [id number] Univers 00:00:00 00:00:00 Secure Msg Michelle S Pediatric 350.1.13.10 ity of [place] and 4.2.7.2.[place] [phone] [facility] 225 [facility] 2019-09-01 2019-09-01 Telephone Faizan Morris 1.2.840.114 [id number] Univers 00:00:00 00:00:00 Arcelia Pediatric 350.1.13.10 ity of [place] and 4.2.7.2.[place] [phone] [facility] 314 [facility] 2019-08-29 2019-08-29 Outpatient R UNKNOWN, [facility] [id number] Univers 11:00:00 11:00:00 ATTENDING ity of [facility] 2019-08-26 2019-08-26 Telephone Kerry Collins 1.2.840.114 [id number] Univers 00:00:00 00:00:00 Ali Pediatric 350.1.13.10 ity of [place] and 4.2.7.2.[place] [phone] [address] 2019-08-11 2019-08-11 RefKerry Stokes 1.2.840.114 [id number] Univers 00:00:00 00:00:00 Ali Pediatric 350.1.13.10 ity of [place] and 4.2.7.2.[place] [phone] [address] 2019-06-15 2019-06-15 RefKerry Stokes 1.2.840.114 [id number] Univers 00:00:00 00:00:00 Ali Pediatric 350.1.13.10 ity of [place] and 4.2.7.2.[place] [phone] [facility] Primary [address] [facility] 2019-05-13 2019-05-13 Patient Doctor [facility] 1.2.840.114 [id number] Univers 00:00:00 00:00:00 Secure Msg UnassignedHenny 350.1.13.10 ity of [place] 4.2.7.2.[place] [phone] Nh dical nal 134 [facility] 2019-02-01 2019-02-01 Patient JESS Harris 1.2.840.114 [id number] Univers 00:00:00 00:00:00 Outreach Elneza A LEROY 350.1.13.10 ity of [facility] 4.2.7.2.686 Vaibhav as [phone] [facility] [address] 2019-01-06 2019-01-06 Office [facility] 1.2.623.167 [id number] Univers 11:22:10 11:52:10 Visit Cyrus Mcneil SPECIALTY 350.1.13.10 ity of [place]2.7.2.[place] C[place] AT [phone] Nh dicmarco a BURTONY 198 [facility] 2019-01-05 2019-01-05 Abstract [facility] 1.2.840.114 [id number] Univers 00:00:00 00:00:00 [place] SPECIALTY 350.1.13.10 ity of [facility] 4.2.7.2.686 [place] CENTER AT [phone] Nh dicmarco a BURTONY 198 [facility] 2018-12-27 2018-12-27 Telephone Kp [facility] 1.2.840.114 [id number] Univers 00:00:00 00:00:00 Tyler Inman 350.1.13.10 i ty [place] 4[place].7.2.[place] [phone] Nh dical nal 134 [facility] 2018-12-21 2018-12-21 Patient JESS Harris 1.2.840.114 [id number] Univers 00:00:00 00:00:00 Outreach Elneza A LEROY 350.1.13.10 ity of [facility] 4.2.7.2.686 Va[place] as [phone] [facility] [address] 2018-12-13 2018-12-13 Telephone [facility] 1.2.840.114 [id number] Univers 00:00:00 00:00:00 Tyler Inman 350.1.13.10 i [place].7.2.[place] [phone] Nh dicmarco a nal 134 [facility] 2018-12-10 2018-12-10 [facility] 1.2.840.114 [id number] Univers 00:00:00 00:00:00 Tyler Inman 350.1.13.10 i ty [place].2.[place] [phone] Nh dic[address] 2018-10-15 2018-10-15 Emergency E MCLAUGHLIN, [facility] [id number] [place] 02:31:00 03:40:00 [facility] 2018-10-01 2018-10-01 Outpatient C PERCY, [facility] [id number] [place] 08:05:00 23:59:00 [facility] Results Test Description Test Time Test Comments Results Result Comments Source POCT CREATININE 2022-08-15 21:45:20 Test Item Value Reference Range Interpretation Comme nts POCT Creatinine (test code = 4171588931) 0.9 mg/dL 0.5-1.1 Lab Interpretation (test code = 88788-1) Normal [facility] URINALYSIS W SPECIFIC [id number] 17:52:00 Test Item Value Reference Range Interpretation Comments POCT U SP GRAV (test code = 1.025 mg/dl 1.005-1.025 3255) POCT PH U (test code = 3254) 5 mg/dl 5-8 POCT U LEUK EST (test code = + Negative - Negative 3) POCT U NIT (test code = Neg [...] U APPEAR (test code = clear 3267) [facility] URINALYSIS W SPECIFIC [id number] 17:52:00 Test Item Value Reference Range Interpretation [...] U APPEAR (test code = clear 3267) [facility] URINALYSIS W SPECIFIC [id number] 17:52:00 Test Item Value Reference Range Interpretation [...] U APPEAR (test code = clear 3267) [facility] URINALYSIS W SPECIFIC [id number] 17:52:00 Test Item Value Reference Range Interpretation [...] U APPEAR (test code = clear 3267) [facility] [id number] 14:40:00 Test Item Value Reference Range Interpretation Comments POCT PREG (test code = 1605) Negative On board controls acceptable with C Yes Line (test code = 3574) POCT PREG LOT # (test code = 3575) POCT PREG TEST DATE (test code = 3576) [facility] [id number] 14:40:00 Test Item Value Reference Range Interpretation Comments POCT PREG (test code = 1605) Negative On board controls acceptable with C Yes Line (test code = 3574) POCT PREG LOT # (test code = 3575) POCT PREG TEST DATE (test code = 3576) [facility] ABDOMEN AND PELVIS WITH [id number] 08:51:45EXAM: CT ABDOMEN AND PELVIS WITH CONTRAST.LOCATION: D4.HISTORY: [id number]: Disorder of [id number]: Benign neoplasm of colon.COMPARISON:None.TECHNIQUE:CT abdomen and pelvis [...]
[2022-12-03] MEDS ORDERED: MAGNES/ALUMIN/SIMET 30ML UCUP ONE (03:00)
[2022-12-03] MEDS ORDERED: ONDANSETRON 4 MG/2 ML VIAL ONE (03:13)
[2022-12-03] MEDS ORDERED: NA CHLORIDE 0.9% 1,000 ML ONE (03:14)
[2022-12-03 03:28] LABS: Absolute Lymphocytes (CBC) 2.3 K/uL (0.7-4.9); Hematocrit 31.4 % (36.0-45.0); Lymphocytes % 25.4 % (15.3-44.8); MPV 8.8 fL (7.6-11.3); RBC Red Blood Cell Count 4.14 M/uL (3.86-4.86)
[2022-12-03 03:40] LABS: ALT/SGPT 17 U/L (13-56); AST/SGOT 9 U/L (15-37); Albumin 3.8 g/dL (3.4-5.0); Alkaline Phosphatase 54 U/L (45-117); BUN Blood Urea Nitrogen 15 mg/dL (7-18); Bicarbonate 21 mEq/L (21-32); Bilirubin Total 0.2 mg/dL (0.2-1.0); Glomerular Filtration Rate 79 ml/min (=/>90); Glucose Level 111 mg/dL (74-106); Lipase 35 U/L (13-75); Potassium 3.1 mEq/L (3.5-5.1); Protein, Total 7.9 g/dL (6.4-8.2); Sodium Level 134 mEq/L (136-145); Troponin High Sensitivity 7.7 pg/mL (<58.9)
[2022-12-03 03:44] LABS: Bilirubin Direct < 0.1 mg/dL (0-0.2); Bilirubin Indirect, Calculated ND mg/dL (0.2-0.8)
--- NOTE | 2022-12-03 04:21 | EDPHYS ---
Physician Documentation [facility] Name: Tg Quarles Age: 42 yrs Sex: Female : 1980 Arrival Date: 12/03/2022 Time: 02:35 Bed 5 Private MD: ED Physician Zohaib Hilario HPI: 12/03 02:47 This 42 yrs old Female presents to ER via Unassigned with complaints of Nausea, reflux. sp3 02:47 42-year-old female with PMH documented and nurses note with history of gastritis now sp3 presents with epigastric pain. Symptoms started this evening. Patient has been out of her omeprazole and feels like it is because of that. She denies any chest pain per se, shortness of breath, lower abdominal pain, back pain, fever, syncope, bloody emesis, fever, or any other symptoms on review of systems at this time.. 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 - Social history:: Smoking status: Patient reports the use of cigarette tobacco products, smokes one-half pack cigarettes per day, Patient/guardian denies using alcohol, street drugs. ROS: 02:48 Constitutional: Negative for fever, chills, and weight loss, Eyes: Negative for injury, sp3 pain, redness, and discharge, ENT: Negative for injury, pain, and discharge, Neck: Negative for injury, pain, and swelling, Cardiovascular: Negative for chest pain, palpitations, and edema, Respiratory: Negative for shortness of breath, cough, wheezing, and pleuritic chest pain, Back: Negative for injury and pain, MS/Extremity: Negative for injury and deformity, Skin: Negative for injury, rash, and discoloration, Neuro: Negative for headache, weakness, numbness, tingling, and seizure, Psych: Negative for depression, anxiety, suicide ideation, homicidal ideation, and hallucinations, Allergy/Immunology: Negative for hives, rash, and allergies, Endocrine: Negative for neck swelling, polydipsia, polyuria, polyphagia, and marked weight changes. 02:48 All other systems are negative. Exam: 02:48 Constitutional: This is a well developed, well nourished patient who is awake, alert, sp3 and in no acute distress. Head/Face: Normocephalic, atraumatic. Eyes: Pupils equal round and reactive to light, extra-ocular motions intact. Lids and lashes normal. Conjunctiva and sclera are non-icteric and not injected. Cornea within normal limits. Periorbital areas with no swelling, redness, or edema. ENT: Nares patent. No nasal discharge, no septal abnormalities noted. External auditory canals are clear. Oropharynx with no redness, swelling, or masses, exudates, or evidence of obstruction, uvula midline. Mucous membranes moist. Neck: Trachea midline, no thyromegaly or masses palpated, and no cervical lymphadenopathy. Supple, full range of motion without nuchal rigidity, or vertebral point tenderness. No Meningismus. Chest/axilla: Normal chest wall appearance and motion. Nontender with no deformity. No lesions are appreciated. Cardiovascular: Regular rate and rhythm with a normal S1 and S2. No gallops, murmurs, or rubs. Normal PMI, no JVD. No pulse deficits. Respiratory: Lungs have equal breath sounds bilaterally, clear to auscultation and percussion. No rales, rhonchi or wheezes noted. No increased work of breathing, no retractions or nasal flaring. Back: No spinal tenderness. No costovertebral tenderness. Full range of motion. Skin: Warm, dry with normal turgor. Normal color with no rashes, no lesions, and no evidence of cellulitis. MS/ Extremity: Pulses equal, no cyanosis. Neurovascular intact. Full, normal range of motion. Neuro: Awake and alert, GCS 15, oriented to person, place, time, and situation. Cranial nerves II-XII grossly intact. Motor strength 5/5 in all extremities. Sensory grossly intact. Cerebellar exam normal. Normal gait. Psych: Awake, alert, with orientation to person, place and time. Behavior, mood, and affect are within normal limits. 02:48 Abdomen/GI: Patient has mild epigastric pain to palpation. She is dry heaving. During these episodes heart rate elevates into the 120s but then returns back to 90s to 100.. 04:20 ECG was reviewed by the Attending Physician. EKG demonstrates sinus tachycardia at 1 1 sp3 8 bpm with normal intervals, normal QRS, normal axis, normal ST/T changes without evidence of acute ischemia. Vital Signs: 02:48 BP 121 / 75; Pulse 127; Resp 17 S; Temp 98.6(O); Pulse Ox 100% on R/A; Weight 102.97 kg lg3 (R); Height 6 ft. 2 in. (R); Pain 0/10; 04:32 BP 126 / 78; Pulse 97; Resp 17 S; Pulse Ox 100% on R/A; lg3 02:48 Body Mass Index 29.14 (102.97 kg, 187.96 cm) lg3 02:48 Pain Scale: Adult lg3 MDM: 02:46 Patient medically screened. sp3 02:49 Data reviewed: vital signs, nurses notes, EMS record, lab test result(s), EKG. ED sp3 course: 42-year-old female with nausea, vomiting, reflux symptoms. Differential diagnosis includes gastritis, gastroesophageal reflux, pancreatitis, biliary pathology, among others. I am not highly suspicious for acute coronary syndrome, pulmonary embolism, thoracic aortic pathology including dissection and aneurysm, mediastinitis, pulmonary pathology including pneumothorax and pneumonia, sepsis, shock, or any other critical findings at this time. We will obtain laboratory values, EKG and administer GI cocktail, normal saline and Zofran IV. Disposition will be based on work-up and patient course.. 04:19 ED course: Laboratory values determined no significant abnormality. Potassium will be sp3 replaced. Heart rate is coming down and patient is no longer vomiting. We will safely discharge patient home at this time on Zofran ODT.. 12/03 02:45 Order name: Basic Metabolic Panel; Complete Time: 04:17 sp3 12/03 02:45 Order name: CBC with Diff; Complete Time: 04:17 sp3 12/03 02:45 Order name: Troponin HS; Complete Time: 04:17 sp3 07/19 03:19 Order name: Liver (Hepatic) Function; Complete Time: 04:17 EDMS 12/03 03:19 Order name: Lipase; Complete Time: 04:17 EDMS 12/03 02:45 Order name: EKG; Complete Time: 02:46 sp3 12/03 02:45 Order name: Cardiac monitoring; Complete Time: 03:11 sp3 12/03 02:45 Order name: EKG - Nurse/Tech; Complete Time: 03:11 sp3 12/03 02:45 Order name: IV Saline Lock; Complete Time: 03:11 sp3 12/03 02:45 Order name: Labs collected and sent; Complete Time: 03:11 sp3 12/03 02:45 Order name: O2 Sat Monitoring; Complete Time: 03:11 sp3 Administered Medications: 02:53 Drug: GI Cocktail without - (Maalox PO Suspension 30 ml, Lidocaine Mucous ha1 Membrane Liquid 2 % 15 ml) Route: PO; 04:33 Follow up: Response: No adverse reaction; Marked relief of symptoms lg3 03:10 Drug: Ondansetron IVP 4 mg Route: IVP; Site: right antecubital; ha1 04:32 Follow up: Response: No adverse reaction; Marked relief of symptoms lg3 03:11 Drug: NS 0.9% IV 1000 ml Route: IV; Rate: 1 bolus; Site: right antecubital; ha1 04:33 Follow up: IV Status: Completed infusion; IV Intake: 1000ml lg3 Disposition Summary: 12/03/22 04:21 Discharge Ordered Location: Home sp3 Condition: Stable sp3 Diagnosis - Vomiting sp3 Followup: sp3 - With: Private Physician - When: Upon discharge from the Emergency Department - Reason: Continuance of care Discharge Instructions: - Discharge Summary Sheet sp3 Forms: - Medication Reconciliation Form sp3 - Thank You Letter sp3 - Antibiotic Education sp3 - Prescription Opioid Use sp3 - Patient Portal Instructions sp3 Prescriptions: - ondansetron 8 mg Oral tablet,disintegrating - take 1 tablet by ORAL route every 12 hours; 20 tablet; Refills: 0, Product sp3 Selection Permitted Signatures: Dispatcher [employer] Teri Cordova RN RN lg3 Zohaib Hilario MD MD sp3 Janie Bobby RN RN ha1 Corrections: (The following items were deleted from the chart) 02:48 02:47 42-year-old female with PMH documented and nurses note with history of gastritis sp3 now presents with epigastric pain.. sp3 03:19 02:48 LIPASE+C.LAB.BRZ ordered. EDMS EDMS 03:19 02:48 HEPATIC FUNCTION+C.LAB.BRZ ordered. EDMS EDMS
--- NOTE | 2022-12-03 04:21 | ER ---
Nurse's Notes [facility] Name: Tg Quarles Age: 42 yrs Sex: Female : 1980 Arrival Date: 12/03/2022 Time: 02:35 Bed 5 Private MD: Diagnosis: Vomiting Presentation: 12/03 02:48 Chief complaint: Patient states: i think im having a flare up of my acid reflux. i have lg3 been out of my omeprazole for a few days. complaints of dry mouth and throat. 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 Coronavirus screen: Client denies travel out of the [place] in the last 14 days. At this time, the client does not indicate any symptoms associated with coronavirus-19. Ebola Screen: No symptoms or risks identified at this time. Initial Sepsis Screen: Does the patient meet any 2 criteria? No. Patient's initial sepsis screen is negative. Does the patient have a suspected source of infection? No. Patient's initial sepsis screen is negative. Risk Assessment: Do you want to hurt yourself or someone else? Patient reports no desire to harm self or others. Onset of symptoms was December 03, 2022. 02:48 Method Of Arrival: EMS: [facility] lg3 02:48 Acuity: JULIENNE 4 lg3 Triage Assessment: 02:51 General: Appears in no apparent distress. uncomfortable, Behavior is calm, cooperative. lg3 Pain: Denies pain. EENT: Oral mucosa is moist. Poor dentition noted. Reports difficulty swallowing. Neuro: No deficits noted. Lindsay Agitation-Sedation Scale (RASS): 0 - Alert and Calm Level of Consciousness is awake, alert, obeys commands, Oriented to person, place, time, situation. Cardiovascular: No deficits noted. Denies chest pain, shortness of breath, Capillary refill < 3 seconds Clubbing of nail beds is absent JVD is absent Patient's skin is warm and dry. Respiratory: No deficits noted. Airway is patent Respiratory effort is even, unlabored, Respiratory pattern is regular, symmetrical. GI: Abdomen is round non-distended, pt continuously attempting to clear throat of phlegm, spitting on self and personal belongings. : No deficits noted. No signs and/or symptoms were reported regarding the genitourinary system. Derm: No deficits noted. No signs and/or symptoms reported regarding the dermatologic system. Skin is intact, is healthy with good turgor, Skin is dry, Skin is normal, Skin temperature is warm. Musculoskeletal: No deficits noted. No signs and/or symptoms reported regarding the musculoskeletal system. Circulation, motion, and sensation intact. Range of motion: intact in all extremities. 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 - Social history:: Smoking status: Patient reports the use of cigarette tobacco products, smokes one-half pack cigarettes per day, Patient/guardian denies using alcohol, street drugs. Screenin:58 [facility] ED Fall Risk Assessment (Adult) History of falling in the last 3 months, lg3 including since admission No falls in past 3 months (0 pts). Abuse screen: Denies threats or abuse. Denies injuries from another. Nutritional screening: No deficits noted. Tuberculosis screening: No symptoms or risk factors identified. Assessment: 02:58 General: see triage assessment . lg3 04:32 Reassessment: Patient appears in no apparent distress at this time. No changes from lg3 previously documented assessment. Patient and/or family updated on plan of care and expected duration. Pain level reassessed. Patient is alert, oriented x 3, equal unlabored respirations, skin warm/dry/pink. Patient denies pain at this time. Patient states feeling better. Patient states symptoms have improved. Vital Signs: 02:48 BP 121 / 75; Pulse 127; Resp 17 S; Temp 98.6(O); Pulse Ox 100% on R/A; Weight 102.97 kg lg3 (R); Height 6 ft. 2 in. (R); Pain 0/10; 04:32 BP 126 / 78; Pulse 97; Resp 17 S; Pulse Ox 100% on R/A; lg3 02:48 Body Mass Index 29.14 (102.97 kg, 187.96 cm) lg3 02:48 Pain Scale: Adult lg3 ED Course: 02:36 Patient arrived in ED. [email or web address] 02:45 Zohaib Hilario MD is Attending Physician. sp3 02:48 Teri Rockwell, RN is Primary Nurse. lg3 02:51 Triage completed. lg3 02:51 Arm band placed on right wrist. lg3 02:58 Patient has correct armband on for positive identification. Placed in gown. Bed in low lg3 position. Call light in reach. Side rails up X 1. Client placed on continuous cardiac and pulse oximetry monitoring. NIBP monitoring applied. Door closed. Noise minimized. Warm blanket given. Family accompanied patient. 03:00 Inserted saline lock: 20 gauge in right antecubital area, using aseptic technique. ha1 03:11 Basic Metabolic Panel Sent. ha1 03:11 CBC with Diff Sent. ha1 03:11 Troponin HS Sent. ha1 04:32 No provider procedures requiring assistance completed. IV discontinued, intact, lg3 bleeding controlled, No redness/swelling at site. Pressure dressing applied. Administered Medications: 02:53 Drug: GI Cocktail without - (Maalox PO Suspension 30 ml, Lidocaine Mucous ha1 Membrane Liquid 2 % 15 ml) Route: PO; 04:33 Follow up: Response: No adverse reaction; Marked relief of symptoms lg3 03:10 Drug: Ondansetron IVP 4 mg Route: IVP; Site: right antecubital; ha1 04:32 Follow up: Response: No adverse reaction; Marked relief of symptoms lg3 03:11 Drug: NS 0.9% IV 1000 ml Route: IV; Rate: 1 bolus; Site: right antecubital; ha1 04:33 Follow up: IV Status: Completed infusion; IV Intake: 1000ml lg3 Medication: 04:32 VIS not applicable for this client. lg3 Intake: 04:33 IV: 1000ml; Total: 1000ml. lg3 Outcome: 04:21 Discharge ordered by . sp3 04:32 Discharged to home ambulatory. lg3 04:32 Condition: stable 04:32 Discharge instructions given to patient, Instructed on discharge instructions, follow up and referral plans. medication usage, Demonstrated understanding of instructions, follow-up care, medications, Prescriptions given X 1. 04:33 Patient left the ED. lg3 Signatures: Teri Rockwell RN RN lg3 Zohaib Hilario MD MD 3 Eleonora Fisherj6 Janie Bobby, RN RN ha1 Corrections: (The following items were deleted from the chart) 03:19 03:11 HEPATIC FUNCTION+C.LAB.BRZ drawn and sent. ha1 EDMS 03:19 03:11 LIPASE+C.LAB.BRZ drawn and sent. ha1 EDMS
[2022-12-03 04:48] VITALS: TEMP 98.6; O2SAT 100
[2022-12-03 04:54] VITALS: BP 126/78
--- NOTE | 2022-12-03 13:15 | EKG ---
Test Date: 2022-12-03 Test Time: 03:13:27 Etl Lead: ZANA MEASUREMENT RESULTS: Intervals: Rate: 115 NC: 174 QRSD: 90 QT: 330 QTc: 456 [place]: P: -12 NC: 174 QRS: 68 T: 20 INTERPRETIVE STATEMENTS: Sinus tachycardia Abnormal ECG Electronically Signed On 12-03-22 13:14:52 CDT by Harjinder Manuel
== END 2022-12-03 04:33 | disposition home or self-care (01) ==
LOC: ER 02:35
DX: R11.10 Vomiting, unspecified (principal); I10 Essential (primary) hypertension; F17.210 Nicotine dependence, cigarettes, uncomplicated; Z88.2 Allergy status to sulfonamides; Z88.5 Allergy status to narcotic agent
CPT/HCPCS: 93005; 85025; 80048; 36415; 80076; 84484; 83690; J2405; J7030; 96361; 96374; 99284

== ENCOUNTER 2023-01-20 00:40 | Emergency (ER) | payer OTHER ==
--- OUTSIDE RECORDS SUMMARY | 2023-01-20 00:47 | XMS REPORT | Continuity of Care Document ---
:1980 Author Organization [facility] t Address [address] [facility] [address] [place] [address] Care Team Providers Name Role Phone Susan Haider MD Primary Care Physician [phone] Tyler Goodrich PA-C Attending Clinician TYLER GOODRICH Attending Clinician Unavailable SAMMI FOSTER Attending Clinician Unavailable Susan Haider MD Attending Clinician [phone] Sammi Steele Attending Clinician Silas Martins MD Attending Clinician Adair Richmond Attending Clinician Unknown, Attending Attending Clinician Unavailable ADAIR HOPE Attending Clinician Unavailable ALANA AVILA Attending Clinician Unavailable ALANA AVILA Attending Clinician Unavailable SUSAN HAIDER Attending Clinician Unavailable LORENA FISHER Attending Clinician Unavailable Lorena Fisher MD Attending Clinician Doctor Unassigned, [place] Attending Clinician Unavailable DUNG SHAHID Attending Clinician Unavailable SILAS MARTINS Attending Clinician Unavailable Stefanie Abarca MA Attending Clinician Unavailable Rabia Sanchez MD Attending Clinician RABIA SANCHEZ Attending Clinician Unavailable Pob, [facility] Attending Clinician Unavailable MINE SEHTH Attending Clinician Unavailable ELOY ROLAND Attending Clinician Unavailable Amaya REARDON, Alan Pollard Attending Clinician ALAN COHEN Attending Clinician Unavailable Morrisdemetria SWEET, Arcelia Attending Clinician MORRIS, ARCELIA Attending Clinician Unavailable Dennis ZAMORANO, Kerry Jose Attending Clinician Vy REARDON, Rebeca Johnston Attending Clinician Yves Ayala DO Attending Clinician KERRY COLLINS Attending Clinician Unavailable Nurse, [facility] Roberto Rawls Attending Clinician Unavailable Nurse, [facility] Attending Clinician Unavailable Meryl REARDON, Mine Gonzalez Attending Clinician Vonda PLATE GLASS POLISHER, Bridget Sheth Attending Clinician Maximo SWEET, Gianni Vigil Attending Clinician Quoc PHYSICAL SECURITY SPECIALIST, Michelle S Attending Clinician Unavailable UNKNOWN, ATTENDING [...] Policy Number Effective Date Expiration Date S [facility] [id number] 2017 00:00:00 Problems Condition Condition Condition Status Onset Resolution Last Treating Co mments Source Name Details Category Date Date Treatment Clinician Date Lumbar Lumbar Disease Active Univers pain pain 7-10 ity of 00:00: [address] Essential Essential Disease Active Uni vers hypertensi hypertensi 5-03 it y of on on 00:00: [address] History of History of Disease Active U nivers trichomona trichomona 8-05 it y of l l 00:00: [place] vaginitis vaginitis [address] [place] [address] Trichomona Trichomona Disease Active U nivers l l 7-17 ity of vulvovagin [place] 00 [facility] BV BV Disease Active Univers (bacterial (bacterial 7-17 it y of vaginosis) vaginosis[place] [facility] Obesity Obesity Disease Active Univers (BMI (BMI 7-08 ity of 30-39.9) 30-39.9) 00:00: [address] Skin yeast Skin yeast Disease Active U nivers infection infection 7-18 ity of 00:00: [address] Screen for Screen for Disease Active U nivers STD STD 7-18 ity of (sexually ([place] transmit[place] transmitte 00 Me dical d disease) d disease) Br anch Depo Depo Disease Active Univers contracept contracept 7-18 it y of ion ion 00:00: [address] Pain Pain Disease Active Univers pelvic pelvic 2-15 ity of 00:00: [address] Surveillan Surveillan Disease Active U nivers ce of ce of 2-15 ity of previously [place] prescribed 00 [place] dical contracept contracept Br anch sosa method sosa method Irregular Irregular Disease Active Uni vers menstrual menstrual 2-15 ity of cycle cycle 00:00: [address] Well woman Well woman Disease Active U nivers exam exam 2-15 ity of without without 00:00: [place] gynecologi gynecologi 00 Me dical cornelius exam cornelius exam Branch Need for Need for Disease Active Unive rs prophylact prophylact 2-15 it y of ic ic 00:00: [place] vaccinatio vaccinatio 00 Me dical n with n with Branch combined combined diphtheria diphtheria -tetanus-p -tetanus-p ertussis ertussis (DTP) (DTP) vaccine vaccine BMI BMI Disease Active Univers 34.0-34.9, 34.0-34.9, 2-15 it y of adult adult 00:00: [address] Allergies, Adverse Reactions, Alerts Allergy Allergy [...] Date Stop Date Quantity Comments Source History [facility] o f Alcohol Comment [place] Med ical Branch Gender identity Universit y of [facility] Sexual orientation Univer sity of [facility] History of tobacco Cigarette Smoker University of use [facility] Alcohol intake 2023-01-12 2023-01-12 Ex-drinker University of 00:00:00 00:00:00 (finding) [facility] Exposure to 2022-08-29 2022-09-08 Not sure [facility] SARS-CoV-2 (event) 00:00:00 15:36:00 [facility] History of Social 2022-07-01 2022-07-01 Univers ity of function 00:00:00 00:00:00 [facility] Tobacco use and 2021-11-27 2021-11-27 Smokeless Universit y of exposure 00:00:00 00:00:00 tobacco non-user [place] Me dical Branch History [facility] 2019-12-21 2019-12-21 2 University o f Alcohol Frequency 00:00:00 00:00:00 [place] M edical Branch History [facility] 2019-12-21 2019-12-21 99 University o f Alcohol Std Drinks 00:00:00 00:00:00 [place] Medical [facility] History [facility] 2019-12-21 2019-12-21 99 University o f Alcohol Binge 00:00:00 00:00:00 [facility] al Branch Sex [birth year] At [birth year] Universit y of 00:00:00 00:00:00 [facility] Smoking Status Start Date Stop Date Source Occasional tobacco smoker 2021-11-27 00:00:00 [facility] Medications Ordered Filled Start Stop Current Ordering Indication Dosage Frequency Signature Comments Components Source Medication Medication Date Date Medication? Clinician (SIG) Name Name Marie Yes [id number] 500mg Take 1 Univers LE (FLAGYL) 8-30 tablet by ity of 500 mg 00:00: mouth [place] tablet 00 every 12 Medical (twelve) Branch hours. METOPROLOL 2022-0 Yes [id number] TAKE Uni vers TARTRATE 25 8-24 ONE-HALF ity of mg tablet 00:00: (2) [place] 00 TABLET(S) Medical BY MOUTH Branch EVERY MORNING. METOPROLOL 2022-0 Yes [id number] TAKE Uni vers TARTRATE 25 8-24 ONE-HALF ity of mg tablet 00:00: (2) 00 TABLET(S) Medical BY MOUTH Branch EVERY MORNING. METOPROLOL 2022-0 Yes [id number] TAKE Uni vers TARTRATE 25 8-24 ONE-HALF ity of mg tablet 00:00: (05/19) TABLET(S) Medical BY MOUTH Branch EVERY MORNING. tiZANidine 2022-0 Yes [id number] 2mg Take 1 Univers 2 mg 7-10 capsule by ity of capsule 00:00: mouth in [address] morning Tiller and 1 capsule at noon and 1 capsule in the evening. tiZANidine 3-0 Yes [id number] 2mg Take 1 Univers 2 mg 7-10 capsule by ity of capsule 00:00: mouth in [address] and 1 capsule at noon and 1 capsule in the evening. tiZANidine 3-0 Yes [id number] 2mg Take 1 Univers 2 mg 7-10 capsule by ity of capsule 00:00: mouth in [address] morning Tiller and 1 capsule at noon and 1 capsule in the evening. tiZANidine 2023-0 Yes [id number] 2mg Take 1 Univers 2 mg 7-10 capsule by ity of capsule 00:00: mouth in [address] and 1 capsule at noon and 1 capsule in the evening. tiZANidine 2023-0 Yes [id number] 2mg Take 1 Univers 2 mg 7-10 capsule by ity of capsule 00:00: mouth in [place] 00 the Medical morning Branch and 1 capsule at noon and 1 capsule in the evening. tiZANidine 3-0 Yes [id number] 2mg Take 1 Univers 2 mg 7-10 capsule by ity of capsule 00:00: mouth in [place] the morning Branch and 1 capsule at noon and 1 capsule in the evening. tiZANidine 2022-0 Yes [id number] 2mg Take 1 Univers 2 mg 7-10 capsule by ity of capsule 00:00: mouth in [place] the morning Branch and 1 capsule at noon and 1 capsule in the evening. ibuprofen 2022-0 2022- Yes [id number] 800mg Take 1 Univers 800 mg 7-10 07-25 tablet by ity of tablet 00:00: 04:59 mouth [place] 00 :00 every 6 Medical (six) Branch hours as needed for Pain (scale 4-6) for up to 14 days. ibuprofen 2022-0 2022- Yes [id number] 800mg Take 1 Univers 800 mg 7-10 07-25 tablet by ity of tablet 00:00: 04:59 mouth [place] 00 :00 every 6 Medical (six) Branch hours as needed for Pain (scale 4-6) for up to 14 days. ibuprofen 2022-0 2022- Yes [id number] 800mg Take 1 Univers 800 mg 7-10 07-25 tablet by ity of tablet 00:00: 04:59 mouth [place] 00 :00 every 6 Medical (six) Branch hours as needed for Pain (scale 4-6) for up to 14 days. ibuprofen 2022-0 2022- Yes [id number] 800mg Take 1 Univers 800 mg 7-10 07-25 tablet by ity of tablet 00:00: 04:59 mouth [place] 00 :00 every 6 Medical (six) Branch hours as needed for Pain (scale 4-6) for up to 14 days. metoprolol 3-0 Yes [id number] 12.5mg Take 0.5 Univers tartrate 25 5-31 tablets by it y of mg tablet 00:00: mouth in [facility] 00 the Medical morning. Branch metoprolol 2022-0 Yes [id number] 12.5mg Take 0.5 Univers tartrate 25 5-31 tablets by it y of mg tablet 00:00: mouth in [facility] 00 the Medical morning. Branch metoprolol 2022-0 Yes [id number] 12.5mg Take 0.5 Univers tartrate 25 5-31 tablets by it y of mg tablet 00:00: [place] 00 the Medical morning. Branch metoprolol 0 Yes [id number] 12.5mg Take 0.5 Univers tartrate 25 5-31 tablets by it y of mg tablet 00:00: [place] 00 the Medical morning. Branch metoprolol 0 Yes [id number] 12.5mg Take 0.5 Univers tartrate 25 5-31 tablets by it y of mg tablet 00:00: [place] 00 the Medical morning. Branch metoprolol 0 Yes [id number] 12.5mg Take 0.5 Univers tartrate 25 5-31 tablets by it y of mg tablet 00:00: [place] 00 the Medical morning. Branch ketorolac 2022- No [id number] 60mg Un bruce (TORADOL) 09-08-24 ity of injection 20:52: 20:56 [place] 60 mg 00 :00 Medical Branch ketorolac 2022- No [id number] 60mg 60 mg, Univers (TORADOL) 09-08-24 Intramuscu ity of injection 20:52: 20:56 [place], ONCE, [place] 60 mg 00 :00 1 dose, On Medical Mon Branch 09/08/22 at 1600, Routine naproxen 2022- No [id number] 500mg Take 1 Univers 500 mg 09-08 05-05 tablet by ity of tablet 00:00: 04:59 mouth 2 00 :00 (two) Medical times Tiller daily with meals as needed for Pain (scale 4-6) for up to 10 days. methocarbam 2022- No [id number] 500mg Take 1 Univers oL 500 mg 09-08 04-30 tablet by ity of tablet 00:00: 04:59 mouth 4 [place] 00 :00 (four) Medical times Tiller daily as needed for Pain (scale 7-10) for up to 5 days. clotrimazol 2022- No [id number] Apply to Univers e-betametha 08-21 area(s) 2 it y of sone cream 00:00: 04:59 (two) [place] 00 :00 times Medical daily for Branch 7 days. clotrimazol 2022- No [id number] Apply to Univers e-betametha 08-21 area(s) 2 it y of sone cream 00:00: 04:59 (two) [place] 00 :00 times Medical daily for Branch 7 days. iopamidol 2022- No [id number] 100mL 100 mL, Univers (ISOVUE 08-15 Intravenou ity o f 370-500 mL) 17:30: 16:35 s, ONCE, 1 [place] injection 00 :00 dose, On Medica l 100 mL Fri Branch 08/15/22 at 1230, Routine metroNIDAZO 2022- No [id number] 500mg Take 1 Univers LE (FLAGYL) 07-28 tablet by it y of 500 mg 00:00: 04:59 mouth [place] tablet 00 :00 every 12 Medical (twelve) Branch hours for 7 days. fluconazole 2022- No [id number] 150mg Take 1 Univers 150 mg 07-24-10 tablet by ity of tablet 00:00: 05:59 mouth [place] 00 :00 now for 1 Medical dose. May Branch repeat dose in 3 days if needed fluconazole 2022- No [id number] 150mg Take 1 Univers 150 mg 07-24-10 tablet by ity of tablet 00:00: 05:59 mouth [place] 00 :00 now for 1 Medical dose. May Branch repeat dose in 3 days if needed fluconazole 2022- No [id number] 150mg Take 1 Univers 150 mg 07-24 tablet by ity of tablet 00:00: 05:59 mouth [place] 00 :00 now for 1 Medical dose. May Branch repeat dose in 3 days if needed fluconazole 2022- No [id number] 150mg Take 1 Univers 150 mg 07-24-10 tablet by ity of tablet 00:00: 05:59 mouth [place] 00 :00 now for 1 Medical dose. May Branch repeat dose in 3 days if needed omeprazole Yes 40mg Take 1 Unive rs 40 mg 3-05 capsule by ity of capsule 00:00: mouth in [place] 00 the Medical morning. Branch omeprazole Yes 40mg Take 1 Unive rs 40 mg 3-05 capsule by ity of capsule 00:00: mouth in [place] the Medical morning. Branch omeprazole 2023-0 Yes 40mg Take 1 Unive rs 40 mg 3-05 capsule by ity of capsule 00:00: mouth in [place] the Medical morning. Branch omeprazole 2023-0 Yes 40mg Take 1 Unive rs 40 mg 3-05 capsule by ity of capsule 00:00: mouth in [place] the Medical morning. Branch omeprazole 2023-0 Yes 40mg Take 1 Unive rs 40 mg 3-05 capsule by ity of capsule 00:00: mouth in [place] the morning. Branch omeprazole 2023-0 Yes 40mg Take 1 Unive rs 40 mg 3-05 capsule by ity of capsule 00:00: mouth in [place] the morning. Branch omeprazole 2023-0 Yes 40mg Take 1 Unive rs 40 mg 3-05 capsule by ity of capsule 00:00: mouth in [place] the Medical morning. Branch omeprazole 2023-0 Yes 40mg Take 1 Unive rs 40 mg 3-05 capsule by ity of capsule 00:00: mouth in [place] the morning. Branch omeprazole 2023-0 Yes 40mg Take 1 Unive rs 40 mg 3-05 capsule by ity of capsule 00:00: mouth in [place] the morning. Branch omeprazole 2023-0 Yes 40mg Take 1 Unive rs 40 mg 3-05 capsule by ity of capsule 00:00: mouth in [place] the Medical morning. Branch omeprazole 2023-0 Yes 40mg Take 1 Unive rs 40 mg 3-05 capsule by ity of capsule 00:00: mouth in [place] the Medical morning. Branch omeprazole 2023-0 Yes 40mg Take 1 Unive rs 40 mg 3-05 capsule by ity of capsule 00:00: mouth in [place] the Medical morning. Branch omeprazole 2023-0 Yes 40mg Take 1 Unive rs 40 mg 3-05 capsule by ity of capsule 00:00: mouth in [place] the Medical morning. Branch omeprazole 2023-0 Yes 40mg Take 1 Unive rs 40 mg 3-05 capsule by ity of capsule 00:00: mouth in [place] the Medical morning. Branch omeprazole 2023-0 Yes 40mg Take 1 Unive rs 40 mg 3-05 capsule by ity of capsule 00:00: mouth in [place] 00 the Medical morning. Branch omeprazole 0 Yes 40mg Take 1 Unive rs 40 mg 3-05 capsule by ity of capsule 00:00: mouth in [place] 00 the Medical morning. Branch omeprazole 0 Yes 40mg Take 1 Unive rs 40 mg 3-05 capsule by ity of capsule 00:00: mouth in [place] 00 the Medical morning. Branch omeprazole 0 Yes 40mg Take 1 Unive rs 40 mg 3-05 capsule by ity of capsule 00:00: mouth in [place] 00 the Medical morning. Branch fluconazole 2022- No [id number] 150mg Take 1 Univers (DIFLUCAN) 07-17 tablet by ity of 150 mg 00:00: 05:59 mouth [place] tablet 00 :00 now for 1 Medical dose. Branch metroNIDAZO 2022- No [id number] 500mg Take 1 Univers LE 500 mg 07-03 tablet by ity of tablet 00:00: 05:59 mouth in [place] 00 :00 the Medical morning Branch and 1 tablet in the evening. Do all this for 7 days. clotrimazol 2022- No [id number] Apply to [facility] e-betametha 07-01 area(s) 2 it y of sone cream 00:00: 05:59 (two) [place] 00 :00 times Medical daily for Branch 14 days. clotrimazol 2022-2022- No [id number] Apply to [facility] e-betametha 07-01 area(s) 2 it y of sone cream 00:00: 05:59 (two) [place] 00 :00 times Medical daily for Branch 14 days. clotrimazol 2022- No [id number] Apply to [facility] e-betametha 07-01 area(s) 2 it y of sone cream 00:00: 05:59 (two) [place] 00 :00 times Medical daily for Branch 14 days. clotrimazol 2022- No [id number] Apply to [facility] e-betametha 07-01 area(s) 2 it y of sone cream 00:00: 05:59 (two) [place] 00 :00 times Medical daily for Branch 14 days. clotrimazol 2022- No [id number] Apply to [facility] e-betametha 07-01 area(s) 2 it y of sone cream 00:00: 05:59 (two) [place] 00 :00 times Medical daily for Branch 14 days. fluconazole 2022- No [id number] 200mg Take 1 Univers 200 mg 07-01-15 tablet by ity of tablet 00:00: 05:59 mouth [place] 00 :00 now for 1 Medical dose. Branch fluconazole 2022- No [id number] 200mg Take 1 Univers 200 mg 07-01-15 tablet by ity of tablet 00:00: 05:59 mouth [place] 00 :00 now for 1 Medical dose. Branch fluconazole 2022- No [id number] 200mg Take 1 Univers 200 mg 07-01-15 tablet by ity of tablet 00:00: 05:59 mouth [place] 00 :00 now for 1 Medical dose. Branch fluconazole 2022- No [id number] 200mg Take 1 Univers 200 mg 07-01-15 tablet by ity of tablet 00:00: 05:59 mouth [place] 00 :00 now for 1 Medical dose. Branch METOPROLOL Yes [id number] Take 1/2 Univers TARTRATE 25 2-08 (one-half) it y of mg tablet 00:00: tablet by [place] 00 mouth once Medical daily Branch METOPROLOL 0 Yes [id number] Take 1/2 Univers TARTRATE 25 2-08 (one-half) it y of mg tablet 00:00: tablet by [place] 00 mouth once Medical daily Branch METOPROLOL 2022-0 Yes [id number] Take 1/2 Univers TARTRATE 25 2-08 (one-half) it y of mg tablet 00:00: tablet by [place] 00 mouth once Medical daily Branch METOPROLOL 0 Yes [id number] Take 1/2 Univers TARTRATE 25 2-08 (one-half) it y of mg tablet 00:00: tablet by [place] 00 mouth once Medical daily Branch METOPROLOL 2022-0 Yes [id number] Take 1/2 Univers TARTRATE 25 2-08 (one-half) it y of mg tablet 00:00: tablet by [place] 00 mouth once Medical daily Branch METOPROLOL 2022-0 Yes [id number] Take 1/2 Univers TARTRATE 25 2-08 (one-half) it y of mg tablet 00:00: tablet by [place] 00 mouth once Medical daily Branch METOPROLOL 2022-0 Yes [id number] Take 1/2 Univers TARTRATE 25 2-08 (one-half) it y of mg tablet 00:00: tablet by [place] 00 mouth once Medical daily Branch METOPROLOL 2022-0 Yes [id number] Take 1/2 Univers TARTRATE 25 2-08 (one-half) it y of mg tablet 00:00: tablet by [place] 00 mouth once Medical daily Branch METOPROLOL 2022-0 Yes [id number] Take 1/2 Univers TARTRATE 25 2-08 (one-half) it y of mg tablet 00:00: tablet by [place] 00 mouth once Medical daily Branch METOPROLOL 2022-0 Yes [id number] Take 1/2 Univers TARTRATE 25 2-08 (one-half) it y of mg tablet 00:00: tablet by [place] 00 mouth once Medical daily Branch METOPROLOL 2022-0 Yes [id number] Take 1/2 Univers TARTRATE 25 2-08 (one-half) it y of mg tablet 00:00: tablet by [place] 00 mouth once Medical daily Branch METOPROLOL 2022-0 Yes [id number] Take 1/2 Univers TARTRATE 25 2-08 (one-half) it y of mg tablet 00:00: tablet by [place] 00 mouth once Medical daily Branch METOPROLOL 3-0 Yes [id number] Take 1/2 Univers TARTRATE 25 2-08 (one-half) it y of mg tablet 00:00: tablet by [place] 00 mouth once Medical daily Branch METOPROLOL 3-0 Yes [id number] Take 1/2 Univers TARTRATE 25 2-08 (one-half) it y of mg tablet 00:00: tablet by [place] 00 mouth once Medical daily Branch METOPROLOL 3-0 Yes [id number] Take 1/2 Univers TARTRATE 25 2-08 (one-half) it y of mg tablet 00:00: tablet by [place] 00 mouth once Medical daily Branch METOPROLOL 3-0 Yes [id number] Take 1/2 Univers TARTRATE 25 2-08 (one-half) it y of mg tablet 00:00: tablet by [place] 00 mouth once Medical daily Branch METOPROLOL 2022-0 Yes [id number] Take 1/2 Univers TARTRATE 25 2-08 (one-half) it y of mg tablet 00:00: tablet by [place] 00 mouth once Medical daily Branch METOPROLOL 2022-0 Yes [id number] Take 1/2 Univers TARTRATE 25 2-08 (one-half) it y of mg tablet 00:00: tablet by [place] 00 mouth once Medical daily Branch METOPROLOL 2022-0 3- No [id number] Take 1/2 Univers TARTRATE 25 2-08 05-31 (one-half) i ty of mg tablet 00:00: 00:00 tablet by Mir [facility]gee 00 :00 mouth once Medical daily Branch miconazole 2021-0 Yes [id number] 100mg Insert 1 Univers 100 mg 7-06 Suppositor ity of vaginal 00:00: y into [place] suppository 00 vagina at [facility] bedtime. Branch miSOPROStoL 2021-0 Yes [id number] Take one Univers 200 mcg 7-06 tablet ity of tablet 00:00: night [place] 00 before Medical procedure, Branch then take one tablet morning of procedure miconazole 2021-0 Yes [id number] 100mg Insert 1 Univers 100 mg 7-06 Suppositor ity of vaginal 00:00: y into [place] suppository 00 vagina at [facility] bedtime. Branch miSOPROStoL 2021-0 Yes [id number] Take one Univers 200 mcg 7-06 tablet ity of tablet 00:00: night [place] 00 before Medical procedure, Branch then take one tablet morning of procedure miconazole 2021-0 Yes [id number] 100mg Insert 1 Univers 100 mg 7-06 Suppositor ity of vaginal 00:00: y into [place] suppository 00 vagina at [facility] bedtime. Branch miSOPROStoL 2021-0 Yes [id number] Take one Univers 200 mcg 7-06 tablet ity of tablet 00:00: night [place] 00 before Medical procedure, Branch then take one tablet morning of procedure miconazole 2021-0 Yes [id number] 100mg Insert 1 Univers 100 mg 7-06 Suppositor ity of vaginal 00:00: y into [place] suppository 00 vagina at [facility] bedtime. Branch miSOPROStoL 2021- Yes [id number] Take one Univers 200 mcg 7-06 tablet ity of tablet 00:00: night [place] 00 before Medical procedure, Branch then take one tablet morning of procedure miconazole 2021-0 Yes [id number] 100mg Insert 1 Univers 100 mg 7-06 Suppositor ity of vaginal 00:00: y into [place] suppository 00 vagina at [facility] bedtime. Branch miSOPROStoL Yes [id number] Take one Univers 200 mcg 7-06 tablet ity of tablet 00:00: night [place] 00 before Medical procedure, Branch then take one tablet morning of procedure miconazole 2021-0 Yes [id number] 100mg Insert 1 Univers 100 mg 7-06 Suppositor ity of vaginal 00:00: y into [place] suppository 00 vagina at [facility] bedtime. Branch miSOPROStoL Yes [id number] Take one Univers 200 mcg 7-06 tablet ity of tablet 00:00: night [place] 00 before Medical procedure, Branch then take one tablet morning of procedure miconazole 2022- No [id number] 100mg Insert 1 Univers 100 mg 7-10 17-14 Suppositor ity of vaginal 00:00: 00:00 y into [place] suppository 00 :00 vagina at [facility] bedtime. Branch miSOPROStoL 2022- No [id number] Take one Univers 200 mcg 7-06 -14 tablet ity of tablet 00:00: 00:00 night [place] 00 :00 before Medical procedure, Branch then take one tablet morning of procedure miconazole 2021-3- No [id number] 100mg Insert 1 Univers 100 mg 7-10 17-14 Suppositor ity of vaginal 00:00: 00:00 y into [place] suppository 00 :00 vagina at [facility] bedtime. Branch miSOPROStoL 2022- No [id number] Take one Univers 200 mcg 7-06 02-14 tablet ity of tablet 00:00: 00:00 night [place] 00 :00 before Medical procedure, Branch then take one tablet morning of procedure miconazole 2021-3- No [id number] 100mg Insert 1 Univers 100 mg 7-10 17-14 Suppositor ity of vaginal 00:00: 00:00 y into [place] suppository 00 :00 vagina at [facility] bedtime. Branch miSOPROStoL 2022- No [id number] Take one Univers 200 mcg 11-20 tablet ity of tablet 00:00: 00:00 night [place] 00 :00 before Medical procedure, Branch then take one tablet morning of procedure miconazole 2022- No [id number] 100mg Insert 1 Univers 100 mg 11-20 Suppositor ity of vaginal 00:00: 00:00 y into [place] suppository 00 :00 vagina at [facility] bedtime. Branch miSOPROStoL 2022- No [id number] Take one Univers 200 mcg 11-20 tablet ity of tablet 00:00: 00:00 night [place] 00 :00 before Medical procedure, Branch then take one tablet morning of procedure fluconazole Yes [id number] 150mg Take 1 Univers 150 mg 6-20 tablet by ity of tablet 00:00: mouth [place] 00 every 72 Medical ([facility] Branch wo) hours. fluconazole Yes [id number] 150mg Take 1 Univers 150 mg 6-20 tablet by ity of tablet 00:00: mouth [place] 00 every 72 Medical (seventy-t Branch wo) hours. fluconazole 0 Yes [id number] 150mg Take 1 Univers 150 mg 6-20 tablet by ity of tablet 00:00: mouth [place] 00 every 72 Medical (seventy-t Branch wo) hours. fluconazole Yes [id number] 150mg Take 1 Univers 150 mg 6-20 tablet by ity of tablet 00:00: mouth [place] 00 every 72 Medical ([facility] wo) hours. fluconazole 0 Yes [id number] 150mg Take 1 Univers 150 mg 6-20 tablet by ity of tablet 00:00: mouth [place] 00 every 72 Medical ([facility] wo) hours. fluconazole 2021-0 Yes [id number] 150mg Take 1 Univers 150 mg 6-20 tablet by ity of tablet 00:00: mouth [place] 00 every 72 Medical ([facility] Branch wo) hours. fluconazole 2022- No [id number] 150mg Take 1 Univers 150 mg 6-20 02-14 tablet by ity of tablet 00:00: 00:00 mouth [place] 00 :00 every 72 Medical ([facility] Branch wo) hours. fluconazole 2022- No [id number] 150mg Take 1 Univers 150 mg 6-20 02-14 tablet by ity of tablet 00:00: 00:00 mouth [place] 00 :00 every 72 Medical ([facility] wo) hours. fluconazole 2022- No [id number] 150mg Take 1 Univers 150 mg 6-20 02-14 tablet by ity of tablet 00:00: 00:00 mouth [place] 00 :00 every 72 Medical ([facility] wo) hours. fluconazole 2022- No [id number] 150mg Take 1 Univers 150 mg 6-20 02-14 tablet by ity of tablet 00:00: 00:00 mouth [place] 00 :00 every 72 [facility] hours. metoprolol Yes [id number] 12.5mg Take 0.5 Univers tartrate 25 5-03 tablets by it y of mg tablet 00:00: mouth [place] 00 daily. Medical Branch metoprolol Yes [id number] 12.5mg Take 0.5 Univers tartrate 25 5-03 tablets by it y of mg tablet 00:00: mouth [place] 00 daily. Medical Branch metoprolol Yes [id number] 12.5mg Take 0.5 Univers tartrate 25 5-03 tablets by it y of mg tablet 00:00: mouth [place] 00 daily. Medical Branch metoprolol Yes [id number] 12.5mg Take 0.5 Univers tartrate 25 5-03 tablets by it y of mg tablet 00:00: mouth [place] 00 daily. Medical Branch metoprolol 2022- No [id number] 12.5mg Take 0.5 Univers tartrate 25 5-03 02-08 tablets by i ty of mg tablet 00:00: 00:00 mouth [place] 00 :00 daily. Medical Branch ferrous Yes [id number] 324mg Take 1 Un bruce sulfate 324 1-26 tablet by ity of mg (65 mg 00:00: mouth 2 [place] iron) EC 00 (two) Medical tablet times Branch daily with meals. ferrous Yes [id number] 324mg Take 1 Un bruce sulfate 324 1-26 tablet by ity of mg (65 mg 00:00: mouth 2 [place] iron) EC 00 (two) Medical tablet times Branch daily with meals. ferrous Yes [id number] 324mg Take 1 Un bruce sulfate 324 1-26 tablet by ity of mg (65 mg 00:00: mouth 2 [place] iron) EC 00 (two) Medical tablet times Branch daily with meals. ferrous Yes [id number] 324mg Take 1 Un bruce sulfate 324 1-26 tablet by ity of mg (65 mg 00:00: mouth 2 [place] iron) EC 00 (two) Medical tablet times Branch daily with meals. ferrous Yes [id number] 324mg Take 1 Un bruce sulfate 324 1-26 tablet by ity of mg (65 mg 00:00: mouth 2 [place] iron) EC 00 (two) Medical tablet times Branch daily with meals. ferrous Yes [id number] 324mg Take 1 Un bruce sulfate 324 1-26 tablet by ity of mg (65 mg 00:00: mouth 2 [place] iron) EC 00 (two) Medical tablet times Branch daily with meals. ferrous 2022- No [id number] 324mg Take 1 U nivers sulfate 324 1-26 02-14 tablet by it y of mg (65 mg 00:00: 00:00 [place] iron[place] 00 :00 (two) Medical tablet times Branch daily with meals. ferrous 2022- No [id number] 324mg Take 1 U nivers sulfate 324 1-26 02-14 tablet by it y of mg (65 mg 00:00: 00:00 [place] iron[place] EC 00 :00 (two) Medical tablet times Branch daily with meals. ferrous 2022- No [id number] 324mg Take 1 U nivers sulfate 324 1-26 02-14 tablet by it y of mg (65 mg 00:00: 00:00 mouth [place] iron[place] EC 00 :00 (two) Medical tablet times Branch daily with meals. ferrous 2022- No [id number] 324mg Take 1 U nivers sulfate 324 1-26 02-14 tablet by it y of mg (65 mg 00:00: 00:00 mouth 2 [place] iron[place] EC 00 :00 (two) Medical tablet times Branch daily with meals. omeprazole Yes Univers 40 mg 5-02 ity of capsule 00:00: [place] 00 Medical Branch omeprazole 2019-0 Yes Univers 40 mg 5-02 ity of capsule 00:00: [place] 00 Medical Branch omeprazole 2019-0 Yes Univers 40 mg 5-02 ity of capsule 00:00: [place] 00 Medical Branch omeprazole 2019-0 Yes Univers 40 mg 5-02 ity of capsule 00:00: [place] 00 Medical Branch omeprazole 2019-0 Yes Univers 40 mg 5-02 ity of capsule 00:00: [place] 00 Medical Branch omeprazole 2019-0 Yes Univers 40 mg 5-02 ity of capsule 00:00: [place] 00 Medical Branch omeprazole 2019-0 2023- No Univer s 40 mg 5-02 02-14 ity of capsule 00:00: 00:00 [place] 00 :00 Medical Branch omeprazole 2019-0 2023- No Univer s 40 mg 5-02 02-14 ity of capsule 00:00: 00:00 [place] 00 :00 Medical Branch omeprazole 2019-0 2023- No Univer s 40 mg 5-02 02-14 ity of capsule 00:00: 00:00 [place] 00 :00 Medical Branch omeprazole 2019-0 2023- No Univer s 40 mg 5-02 02-14 ity of capsule 00:00: 00:00 [place] 00 :00 Medical Branch Immunizations Ordered Filled Immunization Date Status Comments Sour e Immunization Name Name Influenza Virus 2022-04-23 Completed Universit y of Vaccine Recomb Quad 00:00:00 [place] Medical IM, Preserv and ABX Branc h Free 18-64 YRS Influenza Virus 2022-04-23 Completed Universit y of Vaccine Recomb Quad 00:00:00 [place] [facility] IM, Preserv and ABX Branc h [...] Universit y of Vaccine Recomb Quad 00:00:00 [place] [facility] IM, Preserv and ABX Branc h [...] y of Vaccine Quad .5 mL 00:00:00 [place] Medical IM 6+ MO Branch Influenza Virus 2020-05-30 Completed Universit y of Vaccine Quad .5 mL 00:00:00 [place] Medical IM 6+ MO Branch Influenza Virus [...] y of Vaccine Quad .5 mL 00:00:00 [place] Medical IM 6+ MO Branch Influenza Virus [...] y of Vaccine Quad .5 mL 00:00:00 [place] Medical IM 6+ MO Branch Influenza Virus 2018-04-19 Completed Universit y of Vaccine Quad .5 mL 00:00:00 [place] Medical IM 6+ MO Branch Influenza Virus 2018-04-19 Completed Universit y of Vaccine Quad .5 mL 00:00:00 [place] Medical IM 6+ MO Branch Influenza Virus 2018-04-19 Completed Universit y of Vaccine Quad .5 mL 00:00:00 [place] Medical IM 6+ MO Branch Influenza Virus 2018-04-19 Completed Universit y of Vaccine Quad .5 mL 00:00:00 [place] [facility] IM 6+ MO Branch Influenza Virus [...] y of Vaccine Quad .5 mL 00:00:00 [place] Medical IM 6+ MO Branch TDAP 2015-07-02 Completed University of 00:00:00 [facility] Branch TDAP 2015-07-02 Completed University of 00:00:00 [facility] Branch TDAP 2015-07-02 Completed University of 00:00:00 [facility] TDAP 2015-07-02 Completed University of 00:00:00 [facility] Branch TDAP 2015-07-02 Completed University of 00:00:00 [place] [facility] TDAP 2015-07-02 Completed University of 00:00:00 [place] [facility] TDAP 2015-07-02 Completed University of 00:00:00 [place] [facility] TDAP 2015-07-02 Completed University of 00:00:00 [place] [facility] TDAP 2015-07-02 Completed University of 00:00:00 [place] [facility] TDAP 2015-07-02 Completed University of 00:00:00 [facility] Branch TDAP 2015-07-02 Completed University of 00:00:00 [facility] Branch TDAP 2015-07-02 Completed University of 00:00:00 [place] [facility] TDAP 2015-07-02 Completed University of 00:00:00 [place] [facility] TDAP 2015-07-02 Completed University of 00:00:00 [place] [facility] TDAP 2015-07-02 Completed University of 00:00:00 [place] [facility] TDAP 2015-07-02 Completed University of 00:00:00 [place] [facility] TDAP 2015-07-02 Completed University of 00:00:00 [place] [facility] TDAP 2015-07-02 Completed University of 00:00:00 [place] [facility] TDAP 2015-07-02 Completed University of 00:00:00 [place] [facility] TDAP 2015-07-02 Completed University of 00:00:00 [place] [facility] TDAP 2015-07-02 Completed University of [...] TD, NOS 1996-12-28 Completed University of 00:00:00 [place] [facility] TD, NOS 1996-12-28 Completed University of 00:00:00 [place] [facility] TD, NOS 1996-12-28 Completed University of 00:00:00 [place] [facility] TD, NOS 1996-12-28 Completed University of 00:00:00 [place] [facility] TD, NOS 1996-12-28 Completed University of 00:00:00 [place] [facility] TD, NOS 1996-12-28 Completed University of 00:00:00 [place] [facility] TD, NOS 1996-12-28 Completed University of 00:00:00 [place] [facility] TD, NOS 1996-12-28 Completed University of 00:00:00 [place] [facility] TD, NOS 1996-12-28 Completed University of 00:00:00 [place] [facility] TD, NOS 1996-12-28 Completed University of 00:00:00 [place] [facility] TD, NOS 1996-12-28 Completed University of 00:00:00 [place] [facility] TD, NOS 1996-12-28 Completed University of 00:00:00 [place] [facility] TD, NOS 1996-12-28 Completed University of 00:00:00 [place] [facility] TD, NOS 1996-12-28 Completed University of 00:00:00 [place] [facility] TD, NOS 1996-12-28 Completed University of 00:00:00 [facility] Vital Signs Vital Name Observation Time Observation Value Comments Source Systolic blood 2023-01-12 17:41:00 108 mm[Hg] Univer sity of pressure [facility] Diastolic blood 2023-01-12 17:41:00 57 mm[Hg] Unive rsity of pressure [facility] Heart rate 2023-01-12 17:41:00 81 /min [facility] Body temperature 2023-01-12 17:41:00 36.67 Alysa [facility] 2023-01-12 17:41:00 18 /min [facility] Body height 2023-01-12 17:41:[address] [facility] Body weight 2023-01-12 17:41:[address] [facility] BMI 2023-01-12 17:41:00 26.71 kg/m2 [facility] Systolic blood 2022-11-24 19:49:00 108 mm[Hg] Univer sity of pressure [place] [facility] Diastolic blood 2022-11-24 19:49:00 74 mm[Hg] Unive rsity of pressure [place] [facility] Heart rate 2022-11-24 19:48:00 90 /min Universi ty of [place] [facility] Body height 2022-11-24 19:48:00 188 cm Universi ty of [place] [facility] Body weight 2022-11-24 19:48:00 103.193 kg Universi ty of [place] [facility] BMI 2022-11-24 19:48:00 29.21 kg/m2 Universi ty of [place] [facility] Oxygen saturation in 2022-11-24 19:48:00 97 /min University of Arterial blood by [facility] [place] [facility] Pulse oximetry Branch Systolic blood 2022-09-08 20:43:00 128 mm[Hg] Univer sity of pressure [place] [facility] Diastolic blood 2022-09-08 20:43:00 78 mm[Hg] Unive rsity of pressure [place] [facility] Heart rate 2022-09-08 20:43:00 81 /min Universi ty of [place] [facility] Body temperature 2022-09-08 20:43:00 36.72 Alysa Univ ersity of [place] [facility] Respiratory rate 2022-09-08 20:43:00 16 /min Univ ersity of [place] [facility] Body weight 2022-09-08 20:43:00 105.688 kg Universi ty of [place] [facility] BMI 2022-09-08 20:43:00 29.92 kg/m2 Universi ty of [place] [facility] Oxygen saturation in 2022-09-08 20:43:00 99 /min University of Arterial blood by [facility] [place] [facility] Pulse oximetry Branch Systolic blood 2022-08-21 14:07:00 106 mm[Hg] Univer sity of pressure [place] [facility] Diastolic blood 2022-08-21 14:07:00 68 mm[Hg] Unive rsity of pressure [place] [facility] Heart rate 2022-08-21 14:07:00 77 /min Universi ty of [place] [facility] Body temperature 2022-08-21 14:07:00 36.44 Alysa Univ ersity of [place] [facility] Body height 2022-08-21 14:07:00 188 cm Universi ty of [place] [facility] Body weight 2022-08-21 14:07:00 105.688 kg Universi ty of [place] [facility] BMI 2022-08-21 14:07:00 29.92 kg/m2 Universi ty of [place] [facility] Oxygen saturation in 2022-08-21 14:07:00 100 /min University of Arterial blood by [facility] [place] [facility] Pulse oximetry Branch Systolic blood 2022-07-24 15:49:00 109 mm[Hg] Univer sity of pressure [place] [facility] Diastolic blood 2022-07-24 15:49:00 60 mm[Hg] Unive rsity of pressure [place] [facility] Heart rate 2022-07-24 15:49:00 91 /min Universi ty of [place] [facility] Body temperature 2022-07-24 15:49:00 36.44 Alysa Univ ersity of [place] [facility] Respiratory rate 2022-07-24 15:49:00 18 /min Univ ersity of [place] [facility] Body height 2022-07-24 15:49:00 188 cm Universi ty of [place] [facility] Body weight 2022-07-24 15:49:00 106.913 kg Universi ty of [place] [facility] BMI 2022-07-24 15:49:00 30.26 kg/m2 Universi ty of [place] [facility] Oxygen saturation in 2022-07-24 15:49:00 99 /min University of Arterial blood by [facility] [place] [facility] Pulse oximetry Branch Systolic blood 2022-07-01 17:11:00 120 mm[Hg] Univer sity of pressure [place] [facility] Diastolic blood 2022-07-01 17:11:00 81 mm[Hg] Unive rsity of pressure [place] [facility] Heart rate 2022-07-01 17:11:00 110 /min Universi ty of [place] [facility] Body temperature 2022-07-01 17:11:00 36.67 Alysa Univ ersity of [place] [facility] Respiratory rate 2022-07-01 17:11:00 20 /min Univ ersity of [place] [facility] Body height 2022-07-01 17:11:00 188 cm Universi ty of [place] [facility] Body weight 2022-07-01 17:11:00 103.375 kg Universi ty [facility] [place] [facility] BMI 2022-07-01 17:11:00 29.26 kg/m2 Universi ty of [place] [facility] Oxygen saturation in 2022-07-01 17:11:00 100 /min University of Arterial blood by [facility] [place] [facility] Pulse oximetry Branch Systolic blood 2021-11-27 14:35:00 110 mm[Hg] Univer sity of pressure [facility] Diastolic blood 2021-11-27 14:35:00 75 mm[Hg] [facility] Heart rate 2021-11-27 14:35:00 71 /min [facility] Body temperature 2021-11-27 14:35:00 37.11 Alysa [facility] Body height 2021-11-27 14:35:[address] [facility] Body weight 2021-11-27 14:35:[address] [facility] BMI 2021-11-27 14:35:00 31.58 kg/m2 [facility] Procedures Procedure Date / Time Performed Performing Clinician Sourc e POCT URINALYSIS W/O 2023-01-12 17:49:00 [facility] SPECIFIC GRAVITY [facility] CT ABDOMEN PELVIS W 2022-08-15 16:40:07 Lorena Fisher [facility] CONTRAST [facility] HB CREATININE 2022-08-15 16:25:00 Lorena Fisher [facility] SERUM/BLOOD FOR [facility] IMAGING NOTICE OF PRIVACY 2022-08-15 15:53:39 Doctor Unassigned, No [facility] PRACTICES Name [facility] CONSENT/REFUSAL FOR 2022-08-15 15:53:14 Doctor Unassigned, No [facility] DIAGNOSIS AND Name [facility] TREATMENT ASSIGNMENT OF BENEFITS 2022-08-15 15:52:49 Doctor Unassigned, No [facility] Branch GC & CHLAMYDIA 2022-07-24 16:24:00 Martin Weston o f [place] AMPLIFIED ASSAY Susan Chirinos [facility] Maninder GALV ONLY - VAGINAL 2022-07-24 16:24:00 [facility] PATHOGENS BY NUCLEIC Susan Zapata [facility] ACID TESTING HSV 1&2, VZV NAAT 2022-07-24 16:24:00 Meliza [facility] Susan Chirinos [facility] Maninder [facility] PATIENT FINANCIAL 2022-07-24 15:39:32 Doctor Unassigned, No [facility] POLICY Name Medical [place] POCT URINALYSIS 2022-07-01 17:50:00 [facility] URINE CULTURE 2022-07-01 17:45:00 [facility] o [facility] GALV ONLY - VAGINAL 2022-07-01 17:45:00 [facility]LEIC [facility] ACID TESTING ASSIGNMENT OF BENEFITS 2022-07-01 17:02:49 Doctor Unassigned, No [facility] DISCLOSURE AND 2021-11-27 05:01:00 Doctor Unassigned, No [facility] CONSENT, MEDICAL AND [facility] SURGICAL PROCEDURES POCT TEST 2021-11-27 00:00:[address] [facility] Encounters Start End Encounter Admission Attending Care Care Encounter Source Date/Time Date/Time Type Type Clinicians Facility Department ID 2021-03-17 Emergency [facility] [id number] [facility] 2021-03-16 Emergency [facility] [id number] Univers 05:35[facility] 2021-03-15 Emergency [facility] [id number] Univers 07:15:04 [facility] 2023-01-14 2023-01-14 Case KpUNM [facility] [id number] Univers 00:00:00 00:00:00 Management Tyler [id number] [facility] [id number] Vaibhav as APRIL?BLEA [id number] [address] MEDICAL OFFICE BUILDING 2023-01-12 2023-01-12 Outpatient R KP [facility] [id number] Univers 13:00:00 13:24:43 TYLER vila [facility] 2023-01-12 2023-01-12 Office Kp [facility] [id number] Univers 13:00:00 13:24:43 Visit Tyler [place] [id number] [facility] [id number] [place] [id number] Va reid GRANGER 134 [facility] 2022-12-09 2022-12-09 Outpatient R KRISTIN [facility] [id number] Univers 11:30:00 11:30:00 SAMMI vila [facility] 2022-12-03 2022-12-03 [facility] [id number] Univers 00:00:00 00:00:00 , Susan [employer] [id number] ity of [place] [id number] Vaibhav as APRIL?BLEA [phone] [address] OFFICE [facility] 2022-11-24 2022-11-24 Outpatient R KRISTIN [facility] [id number] Univers 14:30:00 15:02:34 SAMMI vila [facility] 2022-11-24 2022-11-24 Office Kristin [facility] [id number] Univers 14:30:00 15:02:34 Visit Sammi [facility] [id number] it y of [place] [id number] Vaibhav as APRIL?BLEA [id number] [address] OFFICE [facility] 2022-10-15 2022-10-15 Refill Martin [facility] [id number] Univers 00:00:00 00:00:00 , Susan [employer] [id number] ity of [place] [id number] Vaibhav as APRIL?BLEA [id number] [address] OFFICE BUILDING 2022-10-15 2022-10-15 Refill Silas Martins [id number] Univers 00:00:00 00:00:00 Y PEDIATRIC [id number] ity [id number] [place] [id number] [place] [address] Branch CARE CLINIC 2022-09-08 2022-09-08 Urgent Adair Hope [facility] [id number] Univers 15:40:00 16:00:00 Care Unknown, [facility] [id number] ity [facility] [id number] Vaibhav as APRIL?BLEA [id number] [facility] [address] MEDICAL OFFICE BUILDING 2022-09-08 2022-09-08 [facility] [id number] Univers 15:40:00 15:40:00 [facility] 2022-08-21 2022-08-21 Office [facility] [id number] Univers 09:40:00 09:40:00 Visit [facility] [id number] ity [facility] [id number] Vaibhav as APRIL?BLEA [id number] [address] MEDICAL OFFICE [facility] 2022-08-21 2022-08-21 Outpatient R MELIZA [facility] [id number] Univers 09:30:00 09:30:00 , SUSAN locke [facility] 2022-08-21 2022-08-21 Outpatient R SCOTTFransisco [facility] [id number] Univers 09:40:00 09:25:29 SCOTTFransisco ALANA [facility] 2022-08-15 2022-08-15 [facility] [id number] Univers 10:53:47 23:59:00 LORENA vila [facility] 2022-08-15 2022-08-15 [facility] [id number] Univers 10:50:00 23:59:00 Encounter Lorena Chirinos [place] [id number] ity [facility] [id number] [place] [facility] [id number] [address] 2022-08-05 2022-08-05 Outpatient R MELIZA [facility] [id number] Univers 11:00:00 11:00:00 , SUSAN locke [facility] 2022-07-28 2022-07-28 [facility] [id number] Univers 00:00:00 00:00:00 , Susan HEALTH [id number] ity of [place] [id number] Vaibhav as APRIL?BLEA [id number] [address] MEDICAL OFFICE BUILDING 2022-07-24 2022-07-24 Outpatient R [facility] [id number] [facility] 09:45:00 10:29:18 , SUSAN it y [facility] 2022-07-24 2022-07-24 Office [facility] [id number] [facility] 09:45:00 10:29:18 Visit , Susan HEALTH [id number] ity of [place] [id number] Vaibhav as APRIL?BLEA [id number] [address] MEDICAL OFFICE [facility] 2022-07-24 2022-07-24 Orders Doctor JESS [id number] Univers 00:00:00 00:00:00 Only Unassigned, LEROY [id number] ity of [place] [facility] [id number] Vaibhav as [id number] [address] 2022-07-16 2022-07-16 Telephone [facility] 1.2.840.114 [id number] Univers 00:00:00 00:00:00 , Susan HEALTH [id number] ity of [place] [id number] Vaibhav as APRIL?BLEA [id number] [address] MEDICAL OFFICE [facility] 2022-07-03 2022-07-03 Case [facility] [id number] Univers 00:00:00 00:00:00 Management , Susan HEALTH [id number] ity of [place] [id number] Vaibhav as APRIL?BLEA [id number] [address] MEDICAL OFFICE [facility] 2022-07-01 2022-07-01 Outpatient R [facility] [id number] Univers 11:15:00 11:41:57 , SUSAN it y of [facility] 2022-07-01 2022-07-01 Office [facility] 1.2.840.114 [id number] Univers 11:15:00 11:41:57 Visit , Susan GROSS [id number] ity of [place] [id number] Vaibhav as APRIL?BLEA [id number] [place] [address] MEDICAL OFFICE BUILDING 2022-07-01 2022-07-01 Orders Doctor JESS [id number] [id number] Univers 00:00:00 00:00:00 Only Unassigned, LEROY [id number] ity of [place] [facility] [id number] Vaibhav as [id number] [facility] 009 Branch 2022-06-25 2022-06-25 Outpatient R KLEBER [facility] [id number] Univers 11:00:00 11:00:00 , DUNG villanuevay [facility] 2022-06-24 2022-06-24 Silas Ulloa 1.2.840.114 [id number] Univers 00:00:00 00:00:00 Y PEDIATRIC [id number] [id number] [id number] [address] CARE CLINIC 2022-06-19 2022-06-19 Outpatient SILAS GUEVARA [facility] [id number] Univers 14:30:00 14:30:00 ity of [facility] 2022-06-05 2022-06-05 Outpatient Maia GOODRICH [facility] [id number] Univers 10:30:00 10:30:00 TYLER ity [facility] 2022-06-03 2022-06-03 LEILA Simmons 1.2.840.114 [id number] Univers 00:00:00 00:00:00 Management Stefanie MERINO [id number] [place]y of [id number] [place] [id number] [place] [address] Branch 2022-03-20 2022-03-20 Outpatient Maia HAIDER [facility] [id number] Univers 11:00:00 11:00:00 , SUSAN it y of [facility] 2021-11-27 2021-11-27 Office [facility] [id number] Univers 09:15:00 10:42:35 Visit Oleg IN[place] [id number] i ty of [place] [id number] [place] [id number] [address] 2021-11-27 2021-11-27 Outpatient [facility] [id number] Univers 09:15:00 10:42:35 ity [facility] 2021-11-27 2021-11-27 Outpatient R [facility] [id number] Univers 09:15:00 09:15:00 ity [facility] 2021-11-27 2021-11-27 Outpatient [facility] [id number] Univers 09:15:00 09:15:00 ity [facility] 2021-11-27 2021-11-27 Orders Doctor JESS 1.2.840.114 [id number] Univers 00:00:00 00:00:00 Only Unassigned, LEROY 350.1.13.10 [facility] 4.2.7.2.686 Vaibhav as [phone] [address] 2021-11-20 2021-11-20 Outpatient R KP [facility] [id number] Univers 10:45:00 11:09:12 TYLER ity [facility] 2021-11-20 2021-11-20 Office Kp [facility] 1.2.987.778 [id number] Univers 10:45:00 11:09:12 Visit Tyler INMAN 350.1.13.10 i ty of [place] [phone] [address] 2021-11-04 2021-11-04 Case Kp [facility] 1.2.122.644 [id number] Univers 00:00:00 00:00:00 Management Tyler INMAN 350.1.13.10 ity of [place] [phone] Va dical NAL 134 [facility] 2021-10-31 2021-10-31 Bridge Leverman Adriana Spencer [facility] Main [facility] 1.2.8 40.114 [id number] Univers 12:00:00 12:15:00 Visit Tyler Goodrich 350.1.13.10 ity [facility] 4.2.7.2.[place] [phone] Va dical NAL 353 [facility] 2021-10-31 2021-10-31 Outpatient R KP [facility] [id number] Univers 10:15:00 11:15:11 TYLER [facility] 2021-10-31 2021-10-31 Office Kp [facility] 1.2.446.745 [id number] Univers 10:15:00 11:15:11 Visit Tyler INMAN 350.1.13.10 i ty of [place].2.[place] [phone] Va dical NAL 134 [facility] 2021-10-31 2021-10-31 Outpatient R KP [facility] [id number] Univers 10:15:00 11:15:11 TYLER [facility] 2021-10-24 2021-10-24 Outpatient R KP [facility] [id number] Univers 11:15:00 11:15:00 TYLER [facility] 2021-10-08 2021-10-08 Outpatient R MERYL [facility] [id number] Univers 09:30:00 09:30:00 MINE vila [facility] 2021-09-18 2021-09-18 Telephone Silas Martins 1.2.840.114 [id number] Univers 00:00:00 00:00:00 Y PEDIATRIC 350.1.13.10 ity of [place] [phone] [place] [address] [address] [facility] 2021-09-17 2021-09-17 Office Silas Martins 1.2.840.114 [id number] Univers 13:15:00 13:48:45 Visit Y PEDIATRIC 350.1.13.10 ity [place] [phone] [address] 2021-09-17 2021-09-17 Outpatient Maia SILAS MARTINS [facility] [id number] Univers 13:15:00 13:48:45 ity [facility] 2021-09-17 2021-09-17 Outpatient Maia CAMARILLOFrances SILAS [facility] [id number] Univers 13:15:00 13:15:00 ity of [facility] 2021-09-08 2021-09-08 Refeulalia GLORIA 1.2.840.114 [id number] Univers 00:00:00 00:00:00 , Susan PEDIATRIC 350.1.13.10 ity of [place] [id number] [address] 2021-08-26 2021-08-26 [facility] [id number] Univers 08:45:00 08:45:00 ELOY [facility] 2021-08-08 2021-08-08 Telephone [facility] 1.2.840.114 [id number] Univers 00:00:00 00:00:00 Alan [facility].13.10 [facility] [place] C[place] AT [phone] [address] 2021-07-30 2021-07-30 [facility] [id number] Univers 00:00:00 00:00:00 ALAN vila [facility] 2021-07-16 2021-07-16 Outpatient Maia COHEN [facility] [id number] Univers 16:51:18 23:59:00 ALAN vila [facility] 2021-07-16 2021-07-16 [facility] 1.2.464.899 [id number] Univers 16:51:18 23:59:00 Encounter Alan SPECIALTY 350.1.13.10 ity of [facility] [place] 4.2.7.2.[place] CENTER AT [phone] Va reid BOYER 8[address] [facility] 2021-07-16 2021-07-16 Office Amaya [facility] 1.2.840.114 [id number] Univers 15:50:00 16:00:00 Visit Alan SPECIALTY 350.1.13.10 ity of [facility] [place] 4.2.7.2.[place] CENTER AT [phone] Va sarahmarco a BOYER 198 [facility] 2021-07-16 2021-07-16 Outpatient R AMAYA [facility] [id number] Univers 15:50:00 15:50:00 ALAN vila [facility] 2021-05-28 2021-05-28 Outpatient R MERYL [facility] [id number] Univers 15:30:00 15:30:00 MINE vila [facility] 2021-05-21 2021-05-21 Outpatient R MELIZA [facility] [id number] Univers 11:00:00 11:00:00 , SUSAN locke [facility] 2021-04-18 2021-04-18 Outpatient R MELIZA [facility] [id number] Univers 11:15:00 11:57:00 , SUSAN locke [facility] 2021-04-18 2021-04-18 Office Meliza GLORIA 1.2.840.114 [id number] Univers 11:09:27 11:57:00 Visit , Susan PEDIATRIC 350.1.13.10 ity of [place] [phone] [place] [address] [address] [facility] 2021-04-18 2021-04-18 Outpatient R MELIZA [facility] [id number] Univers 11:15:00 11:15:00 , SUSAN locke of [facility] 2021-04-18 2021-04-18 Orders Doctor MERCADO 1.2.840.114 [id number] Univers 00:00:00 00:00:00 Only Unassigned, LEROY 350.1.13.10 ity of [place] [facility] 4.2.7.2.686 Vaibhav as [phone] [place] [address] [address] 2021-02-01 2021-02-01 Outpatient R MELIZA [facility] [id number] Univers 16:00:00 16:00:00 , SUSAN it y of [facility] 2020-11-29 2020-11-29 Refill Meliza Gloria 1.2.840.114 [id number] Univers 00:00:00 00:00:00 , Susan Pediatric 350.1.13.10 ity of [place] [id number] [address] 2020-11-29 2020-11-29 Refill Meliza Gloria 1.2.840.114 [id number] 00:00:00 00:00:00 , Susan Pediatric 350.1.13.10 M s and 4.2.7.2.[id number] [address] 2020-11-16 2020-11-16 Refill Meliza Gloria 1.2.840.114 [id number] Univers 00:00:00 00:00:00 , Susan Pediatric 350.1.13.10 ity of [place].2.[place] [id number] [address] 2020-11-16 2020-11-16 Refill Meliza Gloria 1.2.840.114 [id number] 00:00:00 00:00:00 , Susan Pediatric 350.1.13.10 M s and 4.2.7.2.686 Adult [id number] [place] [address] Care [facility] 2020-11-15 2020-11-15 Office Faizan Morris 1.2.840.114 [id number] Univers 11:30:23 12:00:23 Visit Arcelia Pediatric 350.1.13.10 ity of [place] and [place]2.7.2.[place] [phone] [place] [address] Branch [facility] 2020-11-15 2020-11-15 Office Faizan Morris 1.2.840.114 [id number] 11:30:23 12:00:23 Visit Arcelia Pediatric 350.1.13.10 s and 4.2.7.2.686 Adult [phone] [address] 2020-11-15 2020-11-15 Outpatient Maia MORRIS [facility] [id number] Univers 12:00:00 12:00:00 ARCELIA ity of [facility] 2020-11-14 2020-11-14 Telephone Kerry Collins 1.2.840.[id number] [facility] 00:00:00 00:00:00 Ali Pediatric 350.1.13.10 ity of [place]2.[place].2.[place] [phone] [address] 2020-11-13 2020-11-13 Patient Meliza Faizan 1.2.840.114 [id number] Univers 00:00:00 00:00:00 Secure Msg , Susan Pediatric 350.1.13.10 ity of [place] and [place].2.[place] [phone] [address] 2020-11-13 2020-11-13 Patient Meliza Faizan 1.2.840.114 [id number] Univers 00:00:00 00:00:00 Secure Msg , Susan Pediatric 350.1.13.10 ity of [place] and 4[place]2.[place].2.[place] [id number] [address] 2020-11-13 2020-11-13 Patient Meliza Faizan 1.2.840.114 [id number] 00:00:00 00:00:00 Secure Msg , Susan Pediatric 350.1.13.10 M s and 4.2.7.2.[address] [id number] [address] 2020-11-08 2020-11-08 Office Meliza Gloria 1.2.840.114 [id number] Univers 11:09:23 12:22:47 Visit , Susan Pediatric 350.1.13.10 ity of [place] and 4.2.7.2.686 [place] [phone] [place] [address] Branch Care [facility] 2020-11-08 2020-11-08 Outpatient R MELIZA [facility] [id number] Univers 11:00:00 11:00:00 , SUSAN it y of [facility] 2020-11-02 2020-11-02 Telephone Meliza Gloria 1.2.840.114 [id number] Univers 00:00:00 00:00:00 , Susan Pediatric 350.1.13.10 ity of [place] and 4[place]2.7.2.[place] [id number] [address] 2020-10-31 2020-10-31 Outpatient R NAOMI [facility] [id number] Univers 00:00:00 00:00:00 LORENA ity [facility] 2020-10-25 2020-10-25 Office Meliza Gloria 1.2.840.114 [id number] Univers 11:05:46 12:04:53 Visit , Susan Pediatric 350.1.13.10 ity of [place] and 4.2.7.2.686 [place] [id number] [address] 2020-10-25 2020-10-25 Outpatient R MELIZA [facility] [id number] Univers 11:00:00 11:00:00 , SUSAN villanueva y of [facility] 2020-10-23 2020-10-23 Outpatient R MELIZA [facility] [id number] Univers 16:15:00 16:15:00 , SUSAN villanueva y of [facility] 2020-08-28 2020-08-28 Outpatient R MELIZA [facility] [id number] Univers 15:45:00 15:45:00 , SUSAN villanueva y of [facility] 2020-08-06 2020-08-06 Emergency [facility] 1.2.600.423 [id number] Univers 20:28:00 23:01:00 Rebeca Degrootton 350.1.13.10 ity of [place].2.[place] [phone] [address] 2020-08-06 2020-08-06 Patient Jamie [facility] 1.2.840.114 [id number] Univers 00:00:00 00:00:00 Outreach Yves PRIMARY 350.1.13.10 i ty of [place] CARE 4.2.7.2.686 [place] PAV[place] [phone] Va dical [address] 2020-07-06 2020-07-06 Outpatient R [facility] [id number] Univers 14:00:00 14:00:00 ity of [facility] 2020-07-02 2020-07-02 Outpatient R [facility] [id number] Univers 08:00:00 08:00:00 ity of [facility] 2020-06-15 2020-06-15 Patient Kerry Collins [facility] 1.2.840.114 [id number] Univers 00:00:00 00:00:00 Secure Msg Ali FRIENDSWO 350.1.13.10 ity of [place] 4[place]2.7.2.686 [place] PEDIATRIC [id number] Va dical AND ADULT [address] [facility] 2020-06-11 2020-06-11 Telephone Kerry Collins 1.2.840.114 [id number] Univers 00:00:00 00:00:00 Ali Pediatric 350.1.13.10 ity of s and 4.2.7.2.686 [place] [phone] [facility] Primary [address] [facility] 2020-06-08 2020-06-08 Office Meliza Gloria 1.2.840.114 [id number] Univers 14:45:00 15:00:00 Visit , Susan Pediatric 350.1.13.10 ity of M [place] and 4.2.7.2.686 [place] [phone] [facility] Primary [address] Care [facility] 2020-06-08 2020-06-08 Outpatient R MELIZA [facility] [id number] Univers 14:45:00 14:45:00 , SUSAN it y of [facility] 2020-06-08 2020-06-08 Outpatient R KERRY COLLINS [facility] [id number] Univers 14:40:00 14:40:00 ity of [facility] 2020-06-08 2020-06-08 Nurse Nurse, Gaudencio Gloria 1.2.84 0.114 [id number] Univers 13:56:21 14:16:21 Visit Kerry Collins Pediatric 350.1.13.10 ity of [place] 4[place]2.7.2.686 [place] [id number] [address] 2020-06-01 2020-06-01 Outpatient R [facility] [id number] Univers 10:40:00 10:40:00 , SUSANTONY locke [facility] 2020-05-30 2020-05-30 Office Meliza Gloria 1.2.840.114 [id number] Univers 15:50:39 17:01:06 Visit , Susan Simpson 350.1.13.10 ity of [place] and 4.2.7.2.686 [place] [phone] [address] 2020-05-30 2020-05-30 Outpatient R [facility] [id number] Univers 16:00:00 16:00:00 , SUSAN it y [facility] 2020-05-25 2020-05-25 RefKerry Stokes 1.2.840.114 [id number] Univers 00:00:00 00:00:00 Rebeca Pediatric 350.1.13.10 ity of [place] and 4.2.7.2.686 [place] [id number] [address] 2020-05-25 2020-05-25 Kerry Butterfield 1.2.840.114 [id number] Univers 00:00:00 00:00:00 Ali Pediatric 350.1.13.10 ity of [place] and 4.2.7.2.686 [place] Adult [id number] [address] 2020-04-16 2020-04-16 Telephone [facility] 1.2.840.114 [id number] Univers 00:00:00 00:00:00 Tyler Inman 350.1.13.10 i ty of [place].2.[place] Profess[place] [phone] Va dical nal [address] [place] [address] 2020-04-10 2020-04-10 Nurse Nurse, [facility] 1.2.840.114 [id number] Univers 14:03:44 15:24:29 Visit LauraRabia Oleg Inman 350.1.13.10 ity of [place].7.2.[place] Profess[place] [phone] Va dical nal [address] [place] [address] 2020-04-10 2020-04-10 Outpatient R [facility] [id number] Univers 14:30:00 14:30:00 ity of [facility] 2020-04-09 2020-04-09 Telephone [facility] 1.2.061.833 [id number] Univers 00:00:00 00:00:00 Mine Inman 350.1.13.10 ity of [place].7.2.[place] Profess[place] [id number] Va dical nal [address] [place] [address] 2020-04-06 2020-04-06 Outpatient R MELIZA [facility] [id number] Univers 11:45:00 11:45:00 , SUSAN it y of [facility] 2020-04-04 2020-04-04 [facility] 1.2.387.382 [id number] Univers 00:00:00 00:00:00 Mine Inman 350.1.13.10 ity of [place].2.[place] Profess[place] [phone] Va dical nal [address] [place] [address] 2020-03-31 2020-03-31 Emergency [facility] 1.2.542.382 [id number] Univers 21:29:00 22:52:00 Bridget Inman 350.1.13.10 ity of [place].7.2.[place] [phone] [address] 2020-03-31 2020-03-31 Orders Doctor JESS 1.2.840.114 [id number] Univers 00:00:00 00:00:00 Only Unassigned, LEROY 350.1.13.10 ity of [place] [facility] 4.2.7.2.686 Vaibhav as [id number] [facility] [address] 2020-03-30 2020-03-30 Telephone Meryl [facility] 1.2.520.074 [id number] Univers 00:00:00 00:00:00 Mine Inman 350.1.13.10 ity of [place]2.[place].2.[place] Profess[place] [phone] Va dical nal 134 [facility] 2020-03-30 2020-03-30 Deya Kerry Collins 1.2.840.114 [id number] Univers 00:00:00 00:00:00 Ali Pediatric 350.1.13.10 ity of [place] and 4.2.7.2.686 [place] [id number] [facility] Primary [address] [facility] 2020-03-28 2020-03-28 Nurse Nurse, [facility] 1.2.840.114 [id number] Univers 10:16:37 10:31:37 Visit Mine Sheth 350.1.13.10 ity of [place] 4[place]2.7.2.[place] Profess[place] [phone] Va dical nal [address] [place] [address] 2020-03-28 2020-03-28 Outpatient R [facility] [id number] Univers 10:30:00 10:30:00 ity of [facility] 2020-01-06 2020-01-06 Telephone [facility] 1.2.840.114 [id number] Univers 00:00:00 00:00:00 Tyler Inman 350.1.13.10 i ty of [place].2.[place] Profess[place] [phone] Va dical nal [address] [place] [address] 2019-12-27 2019-12-27 Telephone Meryl [facility] 1.2.329.861 [id number] Univers 00:00:00 00:00:00 Mine Inman 350.1.13.10 ity of [place] 4[place].7.2.[place] Profess[place] [phone] Va dical nal [address] [place] [address] 2019-12-26 2019-12-26 Out[facility] [id number] Univers 11:15:00 11:15:00 TYLER vila of [facility] 2019-12-21 2019-12-21 [facility] 1.2.840.114 [id number] Univers 13:53:18 14:45:28 Visit Mine Inman 350.1.13.10 ity of [place].2.[place] Profess[place] [phone] [address] 2019-12-21 2019-12-21 Outpatient R [facility] [id number] Univers 13:30:00 13:30:00 MINE vila of [facility] 2019-12-21 2019-12-21 Orders Doctor JESS 1.2.840.114 [id number] Univers 00:00:00 00:00:00 Only Unassigned, LEROY 350.1.13.10 ity of [place] [facility] 4.2.7.2.686 Vaibhav as [phone] [place] [address] Branch 2019-12-13 2019-12-13 Telephone [facility] 1.2.840.114 [id number] Univers 00:00:00 00:00:00 Tyler Inman 350.1.13.10 i ty of [place].2.[place] Profess[place] [phone] [address] 2019-12-06 2019-12-06 Refill Doctor JESSICA 1.2.840.114 [id number] Univers 00:00:00 00:00:00 UnassignedHenny 350.1.13.10 ity of [place] 4.2.7.2.[place] Profess[place] [phone] [address] 2019-12-06 2019-12-06 Refill Doctor Gloria 1.2.840.114 [id number] Univers 00:00:00 00:00:00 Unassigned, Pediatric 350.1.13.10 ity of [place] s and 4.2.7.2.686 [place] [phone] [facility] Primary [address] [facility] 2019-12-06 2019-12-06 Refeulalia Gloria 1.2.840.114 [id number] Univers 00:00:00 00:00:00 Unassigned, Pediatric 350.1.13.10 ity of [place] s and 4.2.7.2.[place] [id number] [address] 2019-12-03 2019-12-03 Kerry Butterfield 1.2.840.114 [id number] Univers 00:00:00 00:00:00 Ali Pediatric 350.1.13.10 ity of [place] and 4.2.7.2.686 [place] [id number] [address] 2019-12-01 2019-12-01 Emergency [facility] 1.2.840.114 [id number] Univers 21:00:45 23:27:00 Gianni Yaritza Inman 350.1.13.10 i ty of [place] 4[place]2.7.2.[place] [id number] [facility] [address] [place] 2019-12-01 2019-12-01 Orders Doctor MERCADO 1.2.840.114 [id number] Univers 00:00:00 00:00:00 Only Unassigned, LEROY 350.1.13.10 ity of [place] [facility] 4.2.7.2.686 Vaibhav as [id number] [facility] [address] 2019-11-23 2019-11-23 Outpatient Maia GOODRICH, [facility] [id number] Univers 14:30:00 14:30:00 TYLER ity of [facility] 2019-11-01 2019-11-01 Kerry Butterfield 1.2.840.114 [id number] Univers 00:00:00 00:00:00 Ali Pediatric 350.1.13.10 ity of [place]2.[place].2.[place] [id number] [address] 2019-10-05 2019-10-05 Kerry Butterfield 1.2.840.114 [id number] Univers 00:00:00 00:00:00 Ali Pediatric 350.1.13.10 ity of [place] and 4.2.7.2.[place] [id number] [facility] [address] [facility] 2019-08-29 2019-09-01 Urgent Arcelia Morris Faizan 1.2.840.1 14 [id number] Univers 11:10:52 09:07:40 Care Unknown, Attending Pediatric 350.1.13. 10 ity of s and 4.2.7.2.[place] [phone] [facility] [address] [facility] 2019-09-01 2019-09-01 Patient Faizan Kumari 1.2.840.114 [id number] Univers 00:00:00 00:00:00 Secure Msg Michelle S Pediatric 350.1.13.10 ity of [place] and 4.2.7.2.[place] [id number] [facility] [address] [facility] 2019-09-01 2019-09-01 Telephone Faizan Morris 1.2.840.114 [id number] Univers 00:00:00 00:00:00 Arcelia Pediatric 350.1.13.10 ity of [place] and 4.2.7.2.[place] [id number] [facility] [address] [facility] 2019-08-29 2019-08-29 Outpatient R UNKNOWN, [facility] [id number] Univers 11:00:00 11:00:00 ATTENDING ity of [facility] 2019-08-26 2019-08-26 Telephone Kerry Collins 1.2.840.114 [id number] Univers 00:00:00 00:00:00 Ali Pediatric 350.1.13.10 ity of [place] and [place]2.[place].2.[place] [phone] [address] 2019-08-11 2019-08-11 Refill Kerry Collins 1.2.840.114 [id number] Univers 00:00:00 00:00:00 Ali Pediatric 350.1.13.10 ity of [place] and 4.2.7.2.[place] [id number] [address] 2019-06-15 2019-06-15 Refill Kerry Collins 1.2.840.114 [id number] Univers 00:00:00 00:00:00 Ali Pediatric 350.1.13.10 ity of [place] and 4.2.7.2.[place] [id number] [facility] Primary [address] [facility] 2019-05-13 2019-05-13 Patient Doctor [facility] 1.2.840.114 [id number] Univers 00:00:00 00:00:00 Secure Msg Unassigned, Henny 350.1.13.10 ity of [place] [phone] [facility] 134 [facility] 2019-02-01 2019-02-01 Patient JESS Harris 1.2.840.114 [id number] Univers 00:00:00 00:00:00 Outreach Elneza A LEROY 350.1.13.10 ity of HOSPITAL 4.2.7.2.686 Vaibhav as [phone] [place] [address] [place] 2019-01-06 2019-01-06 Office [facility] 1.2.969.784 [id number] Univers 11:22:10 11:52:10 Visit Cyrus P SPECIALTY 350.1.13.10 ity of CARE [place].2.7.2.[place] CENTER AT [phone] Va sarahma ROSALIND 198 [facility] 2019-01-05 2019-01-05 Abstract [facility] 1.2.840.114 [id number] Univers 00:00:00 00:00:00 [place] SPECIALTY 350.1.13.10 ity of [facility] 4.2.7.2.[place] CENTER AT [phone] Va sarahma ROSALIND 198 [facility] 2018-12-27 2018-12-27 Telephone [facility] 1.2.840.114 [id number] Univers 00:00:00 00:00:00 Tyler Inman 350.1.13.10 i ty of [place] Profess[place] [phone] Va dicma nal 134 [facility] 2018-12-21 2018-12-21 Patient JESS Harris 1.2.840.114 [id number] Univers 00:00:00 00:00:00 Outreach Elneza A LEROY 350.1.13.10 ity of [facility] 4.2.7.2.686 Vaibhav as [phone] [address] 2018-12-13 2018-12-13 Telephone [facility] 1.2.840.114 [id number] Univers 00:00:00 00:00:00 Tyler Inman 350.1.13.10 i ty of [place] [phone] Va dical nal 134 [facility] 2018-12-10 2018-12-10 [facility] 1.2.840.114 [id number] Univers 00:00:00 00:00:00 Tyler Inman [id number] [id number] [phone] 2018-10-15 2018-10-15 Emergency [facility] [place] [id number] [address] [place] 02:31:00 03:40:00 [facility] 2018-10-01 2018-10-01 [facility] [id number] [place] 08:05:00 23:59:00 [facility] Results Test Description Test Time Test Comments Results Result Comments Source POCT URINALYSIS W/O SPECIFIC GRAVITY 2023-01-12 17:49:00 Test Item Value Reference Range Interpretation Comme nts POCT PH U (test code = 3254) 5 mg/dl 5-8 POCT U LEUK EST (test code = 3263) 2+ Negative - Negative POCT U NIT (test code = 3262) negative Negative - Negative POCT U PROT (test code = 3259) trace Negative - Negative POCT U GLU (test code = 3256) negative Negative - Negative POCT U KETONE (test code = 3258) negative Negative - Negative POCT U BLD (test code = 3257) negative Negative - Negative Lab Interpretation (test code = 64395-2) Abnormal [facility] URINALYSIS W/O SPECIFIC [id number] 17:49:00 Test Item Value Reference Range Interpretation Comments POCT PH U (test code = 3254) 5 mg/dl 5-8 POCT U LEUK EST (test code = 2+ Negative - Negative 3263) POCT U NIT (test code = 3262) negative Negative - Negative POCT U PROT (test code = 3259) trace Negative - Negative POCT U GLU (test code = 3256) negative Negative - Negative POCT U KETONE (test code = 3258) negative Negative - Negative POCT U BLD (test code = 3257) negative Negative - Negative Lab Interpretation (test code = Abnormal 19557-9) [facility] [id number] 21:45:20 Test Item Value Reference Range Interpretation Comments POCT Creatinine (test code = 0.9 mg/dL 0.5-1.9 [id number]) Lab Interpretation (test code = Normal 76883-8) [facility] URINALYSIS W SPECIFIC [id number] 17:52:00 Test Item Value Reference Range Interpretation Comments POCT U SP GRAV (test code = 1.025 mg/dl 1.005-1.025 3255) POCT PH U (test code = 3254) 5 mg/dl 5-8 POCT U LEUK EST (test code = + Negative - Negative 3) POCT U NIT (test code = Neg Negative - Negative 2) POCT U PROT (test code = trace Negative - Negative 9) POCT U GLU (test code = normal Negative - Negative 3256) POCT U KETONE (test code = neg Negative - Negative 3258) POCT U UROBILI (test code = normal 0.2-1 0) POCT U BILI (test code = neg Negative - Negative 1) POCT U BLD (test code = about 50 Negative - Negative 7) POCT U COLOR (test code = light yellow 6) POCT U APPEAR (test code = clear 3267) [facility] URINALYSIS W SPECIFIC [id number] 17:52:00 Test Item Value Reference Range Interpretation [...] U APPEAR (test code = clear 3267) [facility] URINALYSIS W SPECIFIC [id number] 17:52:00 Test Item Value Reference Range Interpretation [...] U APPEAR (test code = clear 3267) [facility] URINALYSIS W SPECIFIC [id number] 17:52:00 Test Item Value Reference Range Interpretation [...] U APPEAR (test code = clear 3267) [facility] [id number] 14:40:00 Test Item Value Reference Range Interpretation Comments POCT PREG (test code = 1605) Negative On board controls acceptable with C Yes Line (test code = 3574) POCT PREG LOT # (test code = 3575) POCT PREG TEST DATE (test code = 3576) [facility] [id number] 14:40:00 Test Item Value Reference Range Interpretation Comments POCT PREG (test code = 1605) Negative On board controls acceptable with C Yes Line (test code = 3574) POCT PREG LOT # (test code = 3575) POCT PREG TEST DATE (test code = 3576) [facility] [id number] 08:51:45EXAM: CT ABDOMEN AND PELVIS WITH CONTRAST.LOCATION: D4.HISTORY: [id number]: Disorder of [id number]: Benign neoplasm of colon.COMPARISON:None.TECHNIQUE:CT abdomen and pelvis [...] within the left ovary.Mild physiologic pelvic ascites. Notes Date/Time Note Provider Source 2022-12-03 Formatting of this note might be differe nt from the original. Kathleen Quezada [facility] 16:28:47-00:00 Next Appt: With Family Medicine (Kristin Zaldivar FNP) 12/09/2022 at 11:30 AM 2022-12-03 Formatting of this note is different fro m the original. Kathleen Quezada [facility] 15:00:22-00:00 Please review and fill historical med if appropr iate. Order History 4 months ago (07/24/2022) omeprazole 40 mg capsule Take 1 capsule by mouth in the morning. Dispense: Not specified Start: 07/20/2022 By: Doctor Unassigned, [place] Encounter Recent Visits Date Type Provider Dept 11/24/22 Office Visit Sammi Foster FNP [facility] 08/21/22 Office Visit Alana Avila MD [facility] 07/24/22 Office Visit Susan Haider MD [facility] 07/01/22 Office Visit Susan Haider MD [facility] 09/17/21 Office Visit Silas Martins MD [facility] Showing recent visits within past 540 days with a meds authorizing provider and meeting all other requirements Future Appointments Date Type Provider Dept 12/09/22 Appointment Sammi Foster FNP [facility] Showing future appointments within next 150 days with a meds authorizing provider and meeting all other requirements
[2023-01-20] MEDS ORDERED: NA CHLORIDE 0.9% 500 ML ONE (01:26)
[2023-01-20 01:41] LABS: Specific Gravity 1.016 (1.005-1.030)
[2023-01-20 01:42] LABS: Specific Gravity 1.016 (1.005-1.030); Urine Bacteria None Seen /HPF (<20); Urine Bilirubin NEGATIVE (Negative); Urine Blood Negative (Negative); Urine Clarity Extremely Turbid (Clear); Urine Color Yellow (Yellow); Urine Glucose NEGATIVE (Negative); Urine Mucus Slight /HPF (None Seen); Urine Protein TRACE (Negative); Urine RBC None Seen /HPF (None Seen); Urine Urobilinogen Normal (Normal)
[2023-01-20 01:54] LABS: Absolute Lymphocytes (CBC) 1.9 K/uL (0.7-4.9); Hematocrit 34.6 % (36.0-45.0); Lymphocytes % 34.2 % (15.3-44.8); MCV 76.9 fL (80-100); MPV 9.3 fL (7.6-11.3); Platelets 215 thou/uL (152-406)
[2023-01-20 02:11] LABS: Albumin 4.5 g/dL (3.4-5.0); Bilirubin Total 0.4 mg/dL (0.2-1.0); Potassium 3.1 mEq/L (3.5-5.1); Protein, Total 8.4 g/dL (6.4-8.2); Thyroid Stimulating Hormone 3.48 uIU/mL (0.358-3.740); Troponin High Sensitivity 14.1 pg/mL (<58.9)
--- NOTE | 2023-01-20 02:16 | EDPHYS ---
Physician Documentation [facility] Name: Tg Quarles Age: 43 yrs Sex: Female : 1980 Arrival Date: 01/20/2023 Time: 00:40 Bed 15 Private MD: [facility] Physician Darrian Eason HPI: 01/20 01:54 This 43 yrs old Female presents to ER via Ambulatory with complaints of sina Palpitations. 01:54 The patient presents with a history of irregular heart beat, heart racing. Context: The sina symptoms occur at rest. Onset: The symptoms/episode began/occurred 1 day(s) ago. Duration: The patient or guardian reports multiple episodes, with no pattern. Modifying factors: The symptoms are aggravated by nothing. The symptoms are alleviated by nothing. Associated signs and symptoms: The patient has no apparent associated signs or symptoms. Severity of symptoms: At their worst the symptoms were mild in the emergency department the symptoms are unchanged. The patient has experienced similar episodes in the past, several times. 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 - Social history:: Smoking status: Patient reports the use of cigarette tobacco products, less than half a pack/day. ROS: 01:59 Constitutional: Negative for fever, chills, and weight loss, Eyes: Negative for injury, sina pain, redness, and discharge, ENT: Negative for injury, pain, and discharge, Neck: Negative for injury, pain, and swelling, Respiratory: Negative for shortness of breath, cough, wheezing, and pleuritic chest pain, Abdomen/GI: Negative for abdominal pain, nausea, vomiting, diarrhea, and constipation, Back: Negative for injury and pain, : Negative for injury, bleeding, discharge, and swelling, MS/Extremity: Negative for injury and deformity, Skin: Negative for injury, rash, and discoloration, Neuro: Negative for headache, weakness, numbness, tingling, and seizure, Psych: Negative for depression, anxiety, suicide ideation, homicidal ideation, and hallucinations, Allergy/Immunology: Negative for hives, rash, and allergies, Endocrine: Negative for neck swelling, polydipsia, polyuria, polyphagia, and marked weight changes, Hematologic/Lymphatic: Negative for swollen nodes, abnormal bleeding, and unusual bruising. 01:59 Cardiovascular: Positive for palpitations. Exam: 01:59 Constitutional: This is a well developed, well nourished patient who is awake, alert, sina and in no acute distress. Head/Face: Normocephalic, atraumatic. Eyes: Pupils equal round and reactive to light, extra-ocular motions intact. Lids and lashes normal. Conjunctiva and sclera are non-icteric and not injected. Cornea within normal limits. Periorbital areas with no swelling, redness, or edema. ENT: Nares patent. No nasal discharge, no septal abnormalities noted. Tympanic membranes are normal and external auditory canals are clear. Oropharynx with no redness, swelling, or masses, exudates, or evidence of obstruction, uvula midline. Mucous membranes moist. Neck: Trachea midline, no thyromegaly or masses palpated, and no cervical lymphadenopathy. Supple, full range of motion without nuchal rigidity, or vertebral point tenderness. No Meningismus. Chest/axilla: Normal chest wall appearance and motion. Nontender with no deformity. No lesions are appreciated. Respiratory: Lungs have equal breath sounds bilaterally, clear to auscultation and percussion. No rales, rhonchi or wheezes noted. No increased work of breathing, no retractions or nasal flaring. Abdomen/GI: Soft, non-tender, with normal bowel sounds. No distension or tympany. No guarding or rebound. No evidence of tenderness throughout. Back: No spinal tenderness. No costovertebral tenderness. Full range of motion. Female : Normal external genitalia. Skin: Warm, dry with normal turgor. Normal color with no rashes, no lesions, and no evidence of cellulitis. MS/ Extremity: Pulses equal, no cyanosis. Neurovascular intact. Full, normal range of motion. Neuro: Awake and alert, GCS 15, oriented to person, place, time, and situation. Cranial nerves II-XII grossly intact. Motor strength 5/5 in all extremities. Sensory grossly intact. Cerebellar exam normal. Normal gait. :59 Cardiovascular: Rate: tachycardic, actual rate is 111 bpm, Rhythm: regular, Pulses: no pulse deficits are appreciated, Heart sounds: normal, normal S1and S2, no S3 or S4, no murmur, no rub, no gallop, Edema: is not appreciated, JVD: is not appreciated. :59 ECG was reviewed by the Attending Physician. Vital Signs: 01:04 BP 123 / 55; Pulse 111; Resp 18; Temp 98.2; Pulse Ox 100% on R/A; Weight 94.35 kg; jw7 Height 6 ft. 2 in. ; 02:00 BP 109 / 60; Pulse 86; Resp 16; Pulse Ox 100% on R/A; pf1 01:04 Body Mass Index 26.71 (94.35 kg, 187.96 cm) 7 MDM: 00:57 Patient medically screened. [facility] 02:03 RAMONE Risk Score: Total Score = 0. Differential diagnosis: arrythmia, dehydration, sina stress disorder. Data reviewed: vital signs, nurses notes, lab test result(s), EKG, radiologic studies, plain films. Consideration of Admission/Observation Escalation of care including admission/observation considered. I considered the following discharge prescriptions or medication management in the emergency department Medications were administered in the Emergency Department. See MAR. Independent interpretation of the following test(s) in the Emergency Department EKG: See my EKG interpretation above. Test considered but Not performed: Ultrasound NO 2 D ECHO. Care significantly affected by the following chronic conditions: Hypertension, ANEMIA, UTI, GERD. 01/20 01: Order name: CBC with Diff; Complete Time: 02: [facility] 01/20 01: Order name: Comprehensive Metabolic Panel; Complete Time: 02: [facility] 01/20 01: Order name: TSH; Complete Time: 02: [facility] 01/20 01:01 Order name: Troponin HS; Complete Time: 02: sina 01/20 01: Order name: Urinalysis w/ reflexes; Complete Time: 02: [facility] 01/20 01:01 Order name: PREGU; Complete Time: 02:13 [facility] 01/20 02:14 Order name: Urine Culture [facility] 01/20 01:01 Order name: Chest Pa And Lat (2 Views) XRAY [facility] 01/20 01:01 Order name: EKG; Complete Time: 01:01 [facility] 01/20 01:01 Order name: EKG - Nurse/Tech; Complete Time: 01:05 [facility] EC:59 Rate is 113 beats/min. Rhythm is regular. QRS [place] Plane is Normal. FL interval is normal. sina QRS interval is normal. QT interval is normal. No Q waves. T waves are Normal. No ST changes noted. Clinical impression: Sinus tachycardia and No evidence of ischemia. Interpreted by me. Reviewed by me. Administered Medications: 01:37 Drug: NS 0.9% IV 500 ml Route: IV; Rate: bolus; Site: right antecubital; jw7 02:30 Follow up: Response: No adverse reaction; Marked relief of symptoms; IV Status: pf1 Completed infusion; IV Intake: 500ml 02:25 Drug: Rocephin IV 1 grams Route: IV; Rate: per protocol; Site: right antecubital; pf1 02:30 Follow up: Response: No adverse reaction; Marked relief of symptoms; IV Status: pf1 Completed infusion; IV Intake: 10ml 02:35 Drug: Potassium PO Effervescent Tablet 50 mEq Route: PO; pf1 02:48 Follow up: Response: No adverse reaction; Marked relief of symptoms pf1 Disposition Summary: 01/20/23 02:15 Discharge Ordered Location: Home sina Problem: new sina Symptoms: have improved sina Condition: Stable sina Diagnosis - UTI/ Urinary tract infection, site not specified sina - Palpitations sina - Hypokalemia sina - Iron deficiency anemia, unspecified sina Followup: sina - With: Private Physician - When: 2 - 3 days - Reason: Recheck today's complaints, Continuance of care, Re-evaluation by your physician Discharge Instructions: - Discharge Summary Sheet sina - Iron Deficiency Anemia, Adult sina - Anemia sina - Iron-Rich Diet sina - Potassium Content of Foods sina - Dysuria sina - Palpitations sina - Urinary Tract Infection, Adult sina - Urinary Tract Infection, Adult, Bjcr-hv-[id number] sina - Palpitations, Mbpj-zm-Gtnz sina - Iron Deficiency Anemia, Adult, Msfq-er-Myym sina - Hypokalemia sina Forms: - Medication Reconciliation Form sina - Thank You Letter sina - Antibiotic Education sina - Prescription Opioid Use sina - Patient Portal Instructions sina - Leadership Thank You Letter sina Prescriptions: - Cipro 250 mg Oral Tablet - take 1 tablet by ORAL route every 12 hours; 14 tablet; Refills: 0, Product sina Selection Permitted Signatures: Dispatcher [employer] Darrian Coulter MD MD cha Waits, Jodi RN RN jw7 Bridget Gavin RN RN pf1
--- NOTE | 2023-01-20 02:16 | ER ---
Nurse's Notes [facility] Name: Tg Quarles Age: 43 yrs Sex: Female : 1980 Arrival Date: 01/20/2023 Time: 00:40 Bed 15 Private MD: Diagnosis: UTI/ Urinary tract infection, site not specified;Palpitations;Hypokalemia;Iron deficiency anemia, unspecified Presentation: 01/20 00:59 Chief complaint: Patient states: palpitations, and dizziness. Coronavirus screen: At [facility] this time, the client does not indicate any symptoms associated with coronavirus-19. Ebola Screen: No symptoms or risks identified at this time. Initial Sepsis Screen: Does the patient meet any 2 criteria? No. Patient's initial sepsis screen is negative. Does the patient have a suspected source of infection? No. Patient's initial sepsis screen is negative. Risk Assessment: Do you want to hurt yourself or someone else? Patient reports no desire to harm self or others. Onset of symptoms was January 18, 2023. 00:59 Method Of Arrival: Ambulatory jw7 00:59 Acuity: JULIENNE 3 jw7 Triage Assessment: 01:00 General: Appears in no apparent distress. comfortable, Behavior is calm, cooperative. jw7 Pain: Denies pain. 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 - Social history:: Smoking status: Patient reports the use of cigarette tobacco products, less than half a pack/day. Screenin:00 [facility] ED Fall Risk Assessment (Adult) History of falling in the last 3 months, jw7 including since admission No falls in past 3 months (0 pts) Score/Fall Risk Level 0 - 2 = Low Risk. Abuse screen: Denies threats or abuse. Denies injuries from another. Nutritional screening: No deficits noted. Tuberculosis screening: No symptoms or risk factors identified. Assessment: 01:06 General: see triage assessment. [facility] 02:00 Reassessment: Patient appears in no apparent distress at this time. No changes from [facility] previously documented assessment. Patient and/or family updated on plan of care and expected duration. Pain level reassessed. Patient is alert, oriented x 3, equal unlabored respirations, skin warm/dry/pink. Patient states feeling better. Patient states symptoms have improved. Vital Signs: 01:04 BP 123 / 55; Pulse 111; Resp 18; Temp 98.2; Pulse Ox 100% on R/A; Weight 94.35 kg; [facility] Height 6 ft. 2 in. ; 02:00 BP 109 / 60; Pulse 86; Resp 16; Pulse Ox 100% on R/A; pf1 01:04 Body Mass Index 26.71 (94.35 kg, 187.96 cm) [facility] ED Course: 00:45 Patient arrived in ED. mr 00:57 Darrian Eason MD is Attending Physician. sina 00:59 Maribel Reyes, RN is Primary Nurse. [facility] 01:00 Triage completed. [facility] 01:00 Patient has correct armband on for positive identification. Bed in low position. Call [facility] light in reach. Side rails up X 1. 01:00 Arm band placed on. [facility] 01:21 Chest Pa And Lat (2 Views) XRAY In Process Unspecified. EDMS 01:37 Initial lab(s) drawn, by me, sent to lab. Inserted saline lock: 22 gauge in right [facility] antecubital area, using aseptic technique. Blood collected. 02:42 No provider procedures requiring assistance completed. IV discontinued, intact, pf1 bleeding controlled, No redness/swelling at site. Pressure dressing applied. 02:53 Provided Education on: medication education. pf1 Administered Medications: 01:37 Drug: NS 0.9% IV 500 ml Route: IV; Rate: bolus; Site: right antecubital; [facility] 02:30 Follow up: Response: No adverse reaction; Marked relief of symptoms; IV Status: pf1 Completed infusion; IV Intake: 500ml 02:25 Drug: Rocephin IV 1 grams Route: IV; Rate: per protocol; Site: right antecubital; pf1 02:30 Follow up: Response: No adverse reaction; Marked relief of symptoms; IV Status: pf1 Completed infusion; IV Intake: 10ml 02:35 Drug: Potassium PO Effervescent Tablet 50 mEq Route: PO; pf1 02:48 Follow up: Response: No adverse reaction; Marked relief of symptoms pf1 Medication: 02:53 VIS not applicable for this client. pf1 Intake: 02:30 IV: 500ml; Total: 500ml. pf1 02:30 IV: 10ml; Total: 510ml. pf1 Outcome: 02:15 Discharge ordered by . sina 02:52 Discharged to home ambulatory. pf1 02:52 Condition: improved 02:52 Discharge instructions given to patient, Instructed on discharge instructions, follow up and referral plans. Demonstrated understanding of instructions, follow-up care, medications, Prescriptions given X 1. 02:54 Patient left the ED. pf1 Signatures: Dispatcher [employer] EDMS Darrian Eason MD MD cha Rivera, Mary mr Waits, Jodi, RN RN jw7 Bridget Gavin RN RN pf1 Corrections: (The following items were deleted from the chart) 01:06 01:04 LMP 12/06/2022 espinoza doran
[2023-01-20] MEDS ORDERED: CEFTRIAXONE 1000 MG/VIAL ONE (02:33)
[2023-01-20] MEDS ORDERED: POTASSIUM 25 MEQ EFFERV TAB ONE (02:33)
[2023-01-20 03:27] VITALS: TEMP 98.2; O2SAT 100
[2023-01-20 03:33] VITALS: BP 109/60
--- NOTE | 2023-01-20 16:44 | EKG ---
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
== END 2023-01-20 02:54 | disposition home or self-care (01) ==
LOC: ER 00:40
DX: N39.0 Urinary tract infection, site not specified (principal); R00.2 Palpitations; E87.6 Hypokalemia; D50.9 Iron deficiency anemia, unspecified; Z88.2 Allergy status to sulfonamides; K21.9 Gastro-esophageal reflux disease without esophagitis; I10 Essential (primary) hypertension; F17.210 Nicotine dependence, cigarettes, uncomplicated
CPT/HCPCS: 96361; 93005; 87088; 85025; 81001; 87086; 36415; 81025; 84443; 84484; 80053; 71046; 96374; 99284; J7040; J0696

== ENCOUNTER 2023-01-30 02:54 | Emergency (ER) | payer OTHER ==
--- OUTSIDE RECORDS SUMMARY | 2023-01-30 03:00 | XMS REPORT | Continuity of Care Document ---
:1980 Author Organization [facility] t Address [address] [facility] [address] [place] [address] Care Team Providers Name Role Phone Susan Haider MD Primary Care Physician [phone] Lab, Ang - Db Attending Clinician Unavailable Sammi Steele Attending Clinician SAMMI FOSTER Attending Clinician Unavailable SUSAN HAIDER Attending Clinician Unavailable Tyler Goodrich PA-C Attending Clinician TYLER GOODRICH Attending Clinician Unavailable Susan Haider MD Attending Clinician [phone] Silas Martins MD Attending Clinician Adair Richmond Attending Clinician Unknown, Attending Attending Clinician Unavailable ADAIR HOPE Attending Clinician Unavailable ALANA AVILA Attending Clinician Unavailable ALANA AVILA Attending Clinician Unavailable LORENA FISHER Attending Clinician Unavailable Lorena Fisher MD Attending Clinician Doctor Unassigned, [place] Attending Clinician Unavailable DUNG SHAHID Attending Clinician Unavailable SILAS MARTINS Attending Clinician Unavailable Stefanie Abarca MA Attending Clinician Unavailable Rabia Sanchez MD Attending Clinician RABIA SANCHEZ Attending Clinician Unavailable Pob, Adc Lab Main Attending Clinician Unavailable MINE SHETH Attending Clinician Unavailable ELOY ROLAND Attending Clinician Unavailable Alan Conde MD Attending Clinician ALAN CONDE Attending Clinician Unavailable Morrisdemetria SWEET, Arcelia Attending Clinician MORRIS, ARCELIA Attending Clinician Unavailable Dennis ZAMORANO, Kerry Jose Attending Clinician Vy REARDON, Rebeca Johnston Attending Clinician Yves Ayala DO Attending Clinician KERRY COLLINS Attending Clinician Unavailable Nurse, Gaudencio Rawls Attending Clinician Unavailable Nurse, [facility] Attending Clinician Unavailable Mine Sheth MD Attending Clinician Vonda FLEET DRIVER, Bridget Sheth Attending Clinician Maximo SWEET, Gianni B Attending Clinician Quoc DIRECTOR MEDICAL SAFETY, Michelle S Attending Clinician Unavailable UNKNOWN, ATTENDING [...] Policy Number Effective Date Expiration Date S [facility] [id number] 2017 00:00:00 Problems Condition Condition Condition Status Onset Resolution Last Treating Co mments Source Name Details Category Date Date Treatment Clinician Date Anemia, Anemia, Disease Active Univers unspecifie unspecifie 01-21 it y of d type d type 00:00: [address] Hypokalemi Hypokalemi Disease Active U nivers a a - ity of 00:: [address] Lumbar Lumbar Disease Active Univers pain pain 7-10 ity of 00:00: [place] 00 [facility] Branch Essential Essential Disease Active Uni vers hypertensi hypertensi 5-03 it y of on on 00:00: [place] [address] Medical Branch History of History of Disease Active U nivers trichomona trichomona 8-05 it y of l l 00:00: [place] vaginitis vaginitis [address] [place] [address] Branch Trichomona Trichomona Disease Active U nivers l l 7-17 ity of vulvovagin vul[place]ovagin [place] it[place] 00 [facility] Branch BV BV Disease Active Univers (bacterial (bacterial 7-17 it y of vaginosis) vaginosis[place] [facility] Obesity Obesity Disease Active Univers (BMI (BMI 7-08 ity of 30-39.9) 30-39.9) 00:00: [address] Branch Skin yeast Skin yeast Disease Active U nivers infection infection 7-18 ity of 00:00: [place] [address] Medical Branch Screen for Screen for Disease Active U nivers STD STD 7-18 ity of (sexually (sexually [place] transmit[place] transmitte 00 Me dical d disease) d disease) Br anch Depo Depo Disease Active Univers contracept contracept 7-18 it y of ion ion 00:00: [address] Pain Pain Disease Active Univers pelvic pelvic 2-15 ity of 00:00: [place] [address] Medical Branch Surveillan Surveillan Disease Active U nivers ce of ce of 2-15 ity of [place] prescribed 00 [place] dical contracept contracept Br anch sosa method sosa method Irregular Irregular Disease Active Uni vers menstrual menstrual 2-15 ity of cycle cycle 00:00: [address] Branch Well woman Well woman Disease Active U nivers exam exam 2-15 ity of without without 00:00: [place] gynecologi gynecologi 00 Me dical cornelius exam cornelius exam Branch Need for Need for Disease Active Unive rs prophylact prophylact 2-15 it y of ic ic 00:00: [place] vaccinatio vaccinatio 00 Me dical n with n with Branch combined combined diphtheria diphtheria -tetanus-p -tetanus-p ertussis ertussis (DTP) (DTP) vaccine vaccine BMI BMI Disease Active 2016- Univers 34.0-34.9, 34.0-34.9, 2-15 it y of [...] Date Stop Date Quantity Comments Source History [facility] o f Alcohol Comment [place] Med ical Branch Gender identity Universit y of [facility] Sexual orientation Univer sity of [facility] History of tobacco Cigarette Smoker University of use [facility] Alcohol intake 2023-01-21 2023-01-21 Ex-drinker University of 00:00:00 00:00:00 (finding) [facility] Exposure to 2022-08-29 2022-09-08 Not sure [facility] SARS-CoV-2 (event) 00:00:00 15:36:00 [facility] History of Social 2022-07-01 2022-07-01 Univers ity of function 00:00:00 00:00:00 [facility] Tobacco use and 2021-11-27 2021-11-27 Smokeless Universit y of exposure 00:00:00 00:00:00 tobacco non-user [place] Me dical Branch History [facility] 2019-12-21 2019-12-21 2 University o f Alcohol Frequency 00:00:00 00:00:00 [place] M edical Branch History [facility] 2019-12-21 2019-12-21 99 University o f Alcohol Std Drinks 00:00:00 00:00:00 [place] [facility] History [facility] 2019-12-21 2019-12-21 99 [place] o f Alcohol Binge 00:00:00 00:00:00 [place] Medic al Branch Sex [birth year] Universit y of 00:00:00 00:00:00 [facility] Branch Smoking Status Start Date Stop Date Source Occasional tobacco smoker 2021-11-27 00:00:00 Un iversity of [facility] Medications Ordered Filled Start Stop Current Ordering Indication Dosage Frequency Signature Comments Components Source Medication Medication Date Date Medication? Clinician (SIG) Name Name metroNIDAZO 0 Yes [id number] 500mg Take 1 Univers LE (FLAGYL) 8-30 tablet by ity of 500 mg 00:00: mouth [place] tablet 00 every 12 Medical (twelve) Branch hours. metroNIDAZO 2022-0 Yes [id number] 500mg Take 1 Univers LE (FLAGYL) 8-30 tablet by ity of 500 mg 00:00: mouth [place] tablet 00 every 12 Medical (twelve) Branch hours. metroNIDAZO 2022-0 Yes [id number] 500mg Take 1 Univers LE (FLAGYL) 8-30 tablet by ity of 500 mg 00:00: mouth [place] tablet 00 every 12 Medical (twelve) Branch hours. metroNIDAZO 2022-0 Yes [id number] 500mg Take 1 Univers LE (FLAGYL) 8-30 tablet by ity of 500 mg 00:00: mouth [place] tablet 00 every 12 Medical (twelve) Branch hours. METOPROLOL 2022-0 Yes [id number] TAKE Uni vers TARTRATE 25 8-24 ONE-HALF ity of mg tablet 00:00: (2) [place] 00 TABLET(S) Medical BY MOUTH Branch EVERY MORNING. METOPROLOL 3-0 Yes [id number] TAKE Uni vers TARTRATE 25 8-24 ONE-HALF ity of mg tablet 00:00: (2) [place] 00 TABLET(S) Medical BY MOUTH Branch EVERY MORNING. METOPROLOL 2023-0 Yes [id number] TAKE Uni vers TARTRATE 25 8-24 ONE-HALF ity of mg tablet 00:00: (2) [place] 00 TABLET(S) Medical BY MOUTH Branch EVERY MORNING. METOPROLOL 3-0 Yes [id number] TAKE Uni vers TARTRATE 25 8-24 ONE-HALF ity of mg tablet 00:00: (2) [place] 00 TABLET(S) Medical BY MOUTH Branch EVERY MORNING. METOPROLOL 2023-0 Yes [id number] TAKE Uni vers TARTRATE 25 8-24 ONE-HALF ity of mg tablet 00:00: (2) TABLET(S) Medical BY MOUTH Branch EVERY MORNING. METOPROLOL 2023-0 Yes [id number] TAKE Uni vers TARTRATE 25 8-24 ONE-HALF ity of mg tablet 00:00: (2) TABLET(S) Medical BY MOUTH Branch EVERY MORNING. tiZANidine 2023-0 Yes [id number] 2mg Take 1 Univers 2 mg 7-10 capsule by ity of capsule 00:00: mouth in [address] and 1 capsule at noon and 1 capsule in the evening. tiZANidine 2023-0 Yes [id number] 2mg Take 1 Univers 2 mg 7-10 capsule by ity of capsule 00:00: mouth in [address] and 1 capsule at noon and 1 capsule in the evening. tiZANidine 2023-0 Yes [id number] 2mg Take 1 Univers 2 mg 7-10 capsule by ity of capsule 00:00: mouth in [address] and 1 capsule at noon and 1 capsule in the evening. tiZANidine 2023-0 Yes [id number] 2mg Take 1 Univers 2 mg 7-10 capsule by ity of capsule 00:00: mouth in [address] and 1 capsule at noon and 1 capsule in the evening. tiZANidine 2023-0 Yes [id number] 2mg Take 1 Univers 2 mg 7-10 capsule by ity of capsule 00:00: mouth in [address] and 1 capsule at noon and 1 capsule in the evening. tiZANidine 2023-0 Yes [id number] 2mg Take 1 Univers 2 mg 7-10 capsule by ity of capsule 00:00: mouth in [address] and 1 capsule at noon and 1 capsule in the evening. tiZANidine 2023-0 Yes [id number] 2mg Take 1 Univers 2 mg 7-10 capsule by ity of capsule 00:00: mouth in [address] and 1 capsule at noon and 1 capsule in the evening. tiZANidine 2023-0 Yes [id number] 2mg Take 1 Univers 2 mg 7-10 capsule by ity of capsule 00:00: mouth in [place] 00 the Medical morning Branch and 1 capsule at noon and 1 capsule in the evening. tiZANidine 2022-0 Yes [id number] 2mg Take 1 Univers 2 mg 7-10 capsule by ity of capsule 00:00: mouth in [place] 00 the Medical morning Branch and 1 capsule at noon and 1 capsule in the evening. tiZANidine 2022-0 Yes [id number] 2mg Take 1 Univers 2 mg 7-10 capsule by ity of capsule 00:00: mouth in [place] 00 the Medical morning Branch and 1 capsule at noon and 1 capsule in the evening. ibuprofen 2022-2022- Yes [id number] 800mg Take 1 Univers 800 mg 7-10 07-25 tablet by ity of tablet 00:00: 04:59 mouth [place] 00 :00 every 6 Medical (six) Branch hours as needed for Pain (scale 4-6) for up to 14 days. ibuprofen 2022- Yes [id number] 800mg Take 1 Univers 800 mg 7-10 07-25 tablet by ity of tablet 00:00: 04:59 mouth [place] 00 :00 every 6 Medical (six) Branch hours as needed for Pain (scale 4-6) for up to 14 days. ibuprofen 2022- Yes [id number] 800mg Take 1 Univers 800 mg 7-10 07-25 tablet by ity of tablet 00:00: 04:59 mouth [place] 00 :00 every 6 Medical (six) Branch hours as needed for Pain (scale 4-6) for up to 14 days. ibuprofen 2022- Yes [id number] 800mg Take 1 Univers 800 mg 7-10 07-25 tablet by ity of tablet 00:00: 04:59 mouth [place] 00 :00 every 6 Medical (six) Branch hours as needed for Pain (scale 4-6) for up to 14 days. metoprolol 2022-0 Yes [id number] 12.5mg Take 0.5 Univers tartrate 25 5-31 tablets by it y of mg tablet 00:00: mouth in [facility] 00 the Medical morning. Branch metoprolol 2022-0 Yes [id number] 12.5mg Take 0.5 Univers tartrate 25 5-31 tablets by it y of mg tablet 00:00: [place] the Medical morning. Branch metoprolol 0 Yes [id number] 12.5mg Take 0.5 Univers tartrate 25 5-31 tablets by it y of mg tablet 00:00: [place] 00 the Medical morning. Branch metoprolol 0 Yes [id number] 12.5mg Take 0.5 Univers tartrate 25 5-31 tablets by it y of mg tablet 00:00: [place] 00 the Medical morning. Branch metoprolol 0 Yes [id number] 12.5mg Take 0.5 Univers tartrate 25 5-31 tablets by it y of mg tablet 00:00: [place] 00 the Medical morning. Branch metoprolol Yes [id number] 12.5mg Take 0.5 Univers tartrate 25 5-31 tablets by it y of mg tablet 00:00: [place] 00 the Medical morning. Branch ketorolac 2022- No [id number] 60mg Un bruce (TORADOL) 09-0824 ity of injection 20:52: 20:56 [place] 60 mg 00 :00 [facility] Branch ketorolac 2022- No [id number] 60mg 60 mg, Univers (TORADOL) 09-0824 Intramuscu ity of injection 20:52: 20:56 [place], ONCE, [place] 60 mg 00 :00 1 dose, On Medical [facility] Branch 09/08/22 at 1600, Routine naproxen 2022- No [id number] 500mg Take 1 Univers 500 mg 09-0805 tablet by ity of tablet 00:00: 04:59 mouth 2 00 :00 (two) Medical times Branch daily with meals as needed for Pain (scale 4-6) for up to 10 days. methocarbam 2022- No [id number] 500mg Take 1 Univers oL 500 mg 09-0830 tablet by ity of tablet 00:00: 04:59 mouth 4 00 :00 (four) Medical times Branch daily as needed for Pain (scale 7-10) for up to 5 days. clotrimazol 2022- No [id number] Apply to Univers e-betametha 08-21 area(s) 2 it y of sone cream 00:00: 04:59 (two) [place] 00 :00 times Medical daily for Branch 7 days. clotrimazol 2022- No [id number] Apply to Univers e-betametha 08-21 area(s) 2 it y of sone cream 00:00: 04:59 (two) [place] 00 :00 times Medical daily for Branch 7 days. iopamidol 2022- No [id number] 100mL 100 mL, Univers (ISOVUE 08-15 Intravenou ity o f 370-500 mL) 17:30: 16:35 s, ONCE, 1 [place] injection 00 :00 dose, On Medica l 100 mL Fri Branch 08/15/22 at 1230, Routine metroNIDAZO 2022- No [id number] 500mg Take 1 Univers LE (FLAGYL) 07-28 tablet by it y of 500 mg 00:00: 04:59 mouth [place] tablet 00 :00 every 12 Medical (twelve) Branch hours for 7 days. fluconazole 2022- No [id number] 150mg Take 1 Univers 150 mg 07-24-10 tablet by ity of tablet 00:00: 05:59 mouth [place] 00 :00 now for 1 Medical dose. May Branch repeat dose in 3 days if needed fluconazole 2022- No [id number] 150mg Take 1 Univers 150 mg 07-24-10 tablet by ity of tablet 00:00: 05:59 mouth [place] 00 :[place] now for 1 Medical dose. May Branch repeat dose in 3 days if needed fluconazole 2022- No [id number] 150mg Take 1 Univers 150 mg 07-24-10 tablet by ity of tablet 00:00: 05:59 mouth [place] 00 :[place] now for 1 Medical dose. May Branch repeat dose in 3 days if needed fluconazole 2022- No [id number] 150mg Take 1 Univers 150 mg 3-10 tablet by ity of tablet 00:00: 05:59 [place] 00 :00 now for 1 Medical dose. May Branch repeat dose in 3 days if needed omeprazole 2023-0 Yes 40mg Take 1 Unive rs 40 mg 3-05 capsule by ity of capsule 00:00: mouth in [place] the Medical morning. Branch omeprazole 2023-0 Yes 40mg Take 1 Unive rs 40 mg 3-05 capsule by ity of capsule 00:00: mouth in [place] the morning. Branch omeprazole 2023-0 Yes 40mg Take 1 Unive rs 40 mg 3-05 capsule by ity of capsule 00:00: mouth in [place] the Medical morning. Branch omeprazole 2023-0 Yes 40mg Take 1 Unive rs 40 mg 3-05 capsule by ity of capsule 00:00: mouth in [place] the Medical morning. Branch omeprazole 2023-0 Yes 40mg Take 1 Unive rs 40 mg 3-05 capsule by ity of capsule 00:00: mouth in [place] the morning. Branch omeprazole 2023-0 Yes 40mg Take 1 Unive rs 40 mg 3-05 capsule by ity of capsule 00:00: mouth in [place] the morning. Branch omeprazole 2023-0 Yes 40mg Take 1 Unive rs 40 mg 3-05 capsule by ity of capsule 00:00: mouth in [place] the morning. Branch omeprazole 2023-0 Yes 40mg Take 1 Unive rs 40 mg 3-05 capsule by ity of capsule 00:00: mouth in [place] the morning. Branch omeprazole 2023-0 Yes 40mg Take 1 Unive rs 40 mg 3-05 capsule by ity of capsule 00:00: mouth in [place] the Medical morning. Branch omeprazole 2023-0 Yes 40mg Take 1 Unive rs 40 mg 3-05 capsule by ity of capsule 00:00: mouth in [place] the Medical morning. Branch omeprazole 2023-0 Yes 40mg Take 1 Unive rs 40 mg 3-05 capsule by ity of capsule 00:00: mouth in [place] the Medical morning. Branch omeprazole 2023-0 Yes 40mg Take 1 Unive rs 40 mg 3-05 capsule by ity of capsule 00:00: mouth in [place] the Medical morning. Branch omeprazole 2023-0 Yes 40mg Take 1 Unive rs 40 mg 3-05 capsule by ity of capsule 00:00: mouth in [place] the Medical morning. Branch omeprazole 2023-0 Yes 40mg Take 1 Unive rs 40 mg 3-05 capsule by ity of capsule 00:00: mouth in [place] 00 the Medical morning. Branch omeprazole 2023-0 Yes 40mg Take 1 Unive rs 40 mg 3-05 capsule by ity of capsule 00:00: mouth in [place] 00 the Medical morning. Branch omeprazole 2023-0 Yes 40mg Take 1 Unive rs 40 mg 3-05 capsule by ity of capsule 00:00: mouth in [place] 00 the Medical morning. Branch omeprazole 2023-0 Yes 40mg Take 1 Unive rs 40 mg 3-05 capsule by ity of capsule 00:00: mouth in [place] 00 the Medical morning. Branch omeprazole 2023-0 Yes 40mg Take 1 Unive rs 40 mg 3-05 capsule by ity of capsule 00:00: mouth in [place] 00 the Medical morning. Branch omeprazole 2023-0 Yes 40mg Take 1 Unive rs 40 mg 3-05 capsule by ity of capsule 00:00: mouth in [place] the Medical morning. Branch omeprazole 2023-0 Yes 40mg Take 1 Unive rs 40 mg 3-05 capsule by ity of capsule 00:00: mouth in [place] the Medical morning. Branch omeprazole 2023-0 Yes 40mg Take 1 Unive rs 40 mg 3-05 capsule by ity of capsule 00:00: mouth in [place] 00 the Medical morning. Branch fluconazole 2022- No [id number] 150mg Take 1 Univers (DIFLUCAN) 3-02 -03 tablet by ity of 150 mg 00:00: 05:59 mouth [place] tablet 00 :00 now for 1 Medical dose. Branch metroNIDAZO 2022- No [id number] 500mg Take 1 Univers LE 500 mg 216 24 tablet by ity of tablet 00:00: 05:59 mouth in [place] 00 :00 the Medical morning Branch and 1 tablet in the evening. Do all this for 7 days. clotrimazol 2022- No [id number] Apply to [facility]-betametha 07-01 area(s) 2 it y of sone cream 00:00: 05:59 (two) [place] 00 :00 times Medical daily for Branch 14 days. clotrimazol 2022- No [id number] Apply to Univers e-betametha 07-01 area(s) 2 it y of sone cream 00:00: 05:59 (two) [place] 00 :00 times Medical daily for Branch 14 days. clotrimazol 2022- No [id number] Apply to [place] [facility] e-betametha 07-01 area(s) 2 it y of sone cream 00:00: 05:59 (two) [place] 00 :00 times Medical daily for Branch 14 days. clotrimazol 2022- No [id number] Apply to [place] [facility] e-betametha 07-01 area(s) 2 it y of sone cream 00:00: 05:59 (two) [place] 00 :00 times Medical daily for Branch 14 days. clotrimazol 2022- No [id number] Apply to [place] [facility] e-betametha 07-01 area(s) 2 it y of sone cream 00:00: 05:59 (two) [place] 00 :00 times Medical daily for Branch 14 days. fluconazole 2022- No [id number] 200mg Take 1 Univers 200 mg 2-14 -15 tablet by ity of tablet 00:00: 05:59 mouth [place] 00 :00 now for 1 Medical dose. [place] fluconazole 2022- No [id number] 200mg Take 1 Univers 200 mg 2-14 02-15 tablet by ity of tablet 00:00: 05:59 mouth [place] 00 :00 now for 1 Medical dose. [place] fluconazole 2022- No [id number] 200mg Take 1 Univers 200 mg 2-14 02-15 tablet by ity of tablet 00:00: 05:59 mouth [place] 00 :00 now for 1 Medical dose. Branch fluconazole 2022- No [id number] 200mg Take 1 Univers 200 mg 2-14 -15 tablet by ity of tablet 00:00: 05:59 mouth [place] 00 :00 now for 1 Medical dose. [place] METOPROLOL Yes [id number] Take 1/2 Univers TARTRATE 25 2-08 (one-half) it y of mg tablet 00:00: tablet by [place] as 00 mouth once Medical daily Branch METOPROLOL 2023-0 Yes [id number] Take 1/2 Univers TARTRATE 25 2-08 (one-half) it y of mg tablet 00:00: tablet by [place] 00 mouth once Medical daily Branch METOPROLOL 2022-0 Yes [id number] Take 1/2 Univers TARTRATE 25 2-08 (one-half) it y of mg tablet 00:00: tablet by [place] 00 mouth once Medical daily Branch METOPROLOL 2022-0 Yes [id number] Take 1/2 Univers TARTRATE 25 2-08 (one-half) it y of mg tablet 00:00: tablet by [place] 00 mouth once Medical daily Branch METOPROLOL 2022-0 Yes [id number] Take 1/2 Univers TARTRATE 25 2-08 (one-half) it y of mg tablet 00:00: tablet by [place] 00 mouth once Medical daily Branch METOPROLOL 2022-0 Yes [id number] Take 1/2 Univers TARTRATE 25 2-08 (one-half) it y of mg tablet 00:00: tablet by [place] 00 mouth once Medical daily Branch METOPROLOL 2022-0 Yes [id number] Take 1/2 Univers TARTRATE 25 2-08 (one-half) it y of mg tablet 00:00: tablet by [place] 00 mouth once Medical daily Branch METOPROLOL 2022-0 Yes [id number] Take 1/2 Univers TARTRATE 25 2-08 (one-half) it y of mg tablet 00:00: tablet by [place] 00 mouth once Medical daily Branch METOPROLOL 2022-0 Yes [id number] Take 1/2 Univers TARTRATE 25 2-08 (one-half) it y of mg tablet 00:00: tablet by [place] 00 mouth once Medical daily Branch METOPROLOL 3-0 Yes [id number] Take 1/2 Univers TARTRATE 25 2-08 (one-half) it y of mg tablet 00:00: tablet by [place] 00 mouth once Medical daily Branch METOPROLOL 3-0 Yes [id number] Take 1/2 Univers TARTRATE 25 2-08 (one-half) it y of mg tablet 00:00: tablet by [place] 00 mouth once Medical daily Branch METOPROLOL 3-0 Yes [id number] Take 1/2 Univers TARTRATE 25 2-08 (one-half) it y of mg tablet 00:00: tablet by [place] 00 mouth once Medical daily Branch METOPROLOL 2022-0 Yes [id number] Take 1/2 Univers TARTRATE 25 2-08 (one-half) it y of mg tablet 00:00: tablet by [place] 00 mouth once Medical daily Branch METOPROLOL 2022-0 Yes [id number] Take 1/2 Univers TARTRATE 25 2-08 (one-half) it y of mg tablet 00:00: tablet by [place] 00 mouth once Medical daily Branch METOPROLOL 2022-0 Yes [id number] Take 1/2 Univers TARTRATE 25 2-08 (one-half) it y of mg tablet 00:00: tablet by [place] 00 mouth once Medical daily Branch METOPROLOL 2022-0 Yes [id number] Take 1/2 Univers TARTRATE 25 2-08 (one-half) it y of mg tablet 00:00: tablet by [place] 00 mouth once Medical daily Branch METOPROLOL 2022-0 Yes [id number] Take 1/2 Univers TARTRATE 25 2-08 (one-half) it y of mg tablet 00:00: tablet by [place] 00 mouth once Medical daily Branch METOPROLOL 2022-0 Yes [id number] Take 1/2 Univers TARTRATE 25 2-08 (one-half) it y of mg tablet 00:00: tablet by [place] 00 mouth once Medical daily Branch METOPROLOL 2022- No [id number] Take 1/2 Univers TARTRATE 25 2-08 05-31 (one-half) i ty of mg tablet 00:00: 00:00 tablet by [facility] 00 :00 mouth once Medical daily Branch miconazole 2021-0 Yes [id number] 100mg Insert 1 Univers 100 mg 7-06 Suppositor ity of vaginal 00:00: y into [place] suppository 00 vagina at [facility] bedtime. Branch miSOPROStoL 2021-0 Yes [id number] Take one Univers 200 mcg 7-06 tablet ity of tablet 00:00: night [place] 00 before Medical procedure, Branch then take one tablet morning of procedure miconazole 2021-0 Yes [id number] 100mg Insert 1 Univers 100 mg 7-06 Suppositor ity of vaginal 00:00: y into [place] suppository 00 vagina at [facility] bedtime. Branch miSOPROStoL 2021-0 Yes [id number] Take one Univers 200 mcg 7-06 tablet ity of tablet 00:00: night [place] 00 before Medical procedure, Branch then take one tablet morning of procedure miconazole 2021-0 Yes [id number] 100mg Insert 1 Univers 100 mg 7-06 Suppositor ity of vaginal 00:00: y into [place] suppository 00 vagina at [facility] bedtime. Branch miSOPROStoL 2021-0 Yes [id number] Take one Univers 200 mcg 7-06 tablet ity of tablet 00:00: night [place] 00 before Medical procedure, Branch then take one tablet morning of procedure miconazole 2021-0 Yes [id number] 100mg Insert 1 Univers 100 mg 7-06 Suppositor ity of vaginal 00:00: y into [place] suppository 00 vagina at [facility] bedtime. Branch miSOPROStoL 2021-0 Yes [id number] Take one Univers 200 mcg 7-06 tablet ity of tablet 00:00: night [place] 00 before Medical procedure, Branch then take one tablet morning of procedure miconazole 2021-0 Yes [id number] 100mg Insert 1 Univers 100 mg 7-06 Suppositor ity of vaginal 00:00: y into [place] suppository 00 vagina at [facility] bedtime. Branch miSOPROStoL 2021- Yes [id number] Take one Univers 200 mcg 7-06 tablet ity of tablet 00:00: night [place] 00 before Medical procedure, Branch then take one tablet morning of procedure miconazole 2021-0 Yes [id number] 100mg Insert 1 Univers 100 mg 7-06 Suppositor ity of vaginal 00:00: y into [place] suppository 00 vagina at [facility] bedtime. Branch miSOPROStoL 2021-0 Yes [id number] Take one Univers 200 mcg 7-06 tablet ity of tablet 00:00: night [place] 00 before Medical procedure, Branch then take one tablet morning of procedure miconazole 2021-0 3- No [id number] 100mg Insert 1 Univers 100 mg 7-06 02-14 Suppositor ity of vaginal 00:00: 00:00 y into [place] suppository 00 :00 vagina at [facility] bedtime. Branch miSOPROStoL 3- No [id number] Take one Univers 200 mcg 7-06 02-14 tablet ity of tablet 00:00: 00:00 night [place] 00 :00 before Medical procedure, Branch then take one tablet morning of procedure miconazole 2021-0 2023- No [id number] 100mg Insert 1 Univers 100 mg 11-20 Suppositor ity of vaginal 00:00: 00:00 y into [place] suppository 00 :00 vagina at [facility] bedtime. Branch miSOPROStoL 2022- No [id number] Take one Univers 200 mcg 11-20 tablet ity of tablet 00:00: 00:00 night [place] 00 :00 before Medical procedure, Branch then take one tablet morning of procedure miconazole 2022- No [id number] 100mg Insert 1 Univers 100 mg 11-20 Suppositor ity of vaginal 00:00: 00:00 y into [place] suppository 00 :00 vagina at [facility] bedtime. Branch miSOPROStoL 2022- No [id number] Take one Univers 200 mcg 11-20 tablet ity of tablet 00:00: 00:00 night [place] 00 :00 before Medical procedure, Branch then take one tablet morning of procedure miconazole 2022- No [id number] 100mg Insert 1 Univers 100 mg 11-20 Suppositor ity of vaginal 00:00: 00:00 y into [place] suppository 00 :00 vagina at [facility] bedtime. Branch miSOPROStoL 2022- No [id number] Take one Univers 200 mcg 11-20 tablet ity of tablet 00:00: 00:00 night [place] 00 :00 before Medical procedure, Branch then take one tablet morning of procedure fluconazole 2021-0 Yes [id number] 150mg Take 1 Univers 150 mg 6-20 tablet by ity of tablet 00:00: mouth [place] 00 every 72 Medical (seventy-t Branch wo) hours. fluconazole 2021-0 Yes [id number] 150mg Take 1 Univers 150 mg 6-20 tablet by ity of tablet 00:00: mouth [place] 00 every 72 Medical ([facility] Branch wo) hours. fluconazole 2021-0 Yes [id number] 150mg Take 1 Univers 150 mg 6-20 tablet by ity of tablet 00:00: mouth [place] 00 every 72 Medical ([facility]-t Branch wo) hours. fluconazole 2021-0 Yes [id number] 150mg Take 1 Univers 150 mg 6-20 tablet by ity of tablet 00:00: mouth [place] 00 every 72 Medical ([facility]vent[facility]-t Branch wo) hours. fluconazole Yes [id number] 150mg Take 1 Univers 150 mg 6-20 tablet by ity of tablet 00:00: mouth [place] 00 every 72 Medical ([facility]vent[facility]-t Branch wo) hours. fluconazole 0 Yes [id number] 150mg Take 1 Univers 150 mg 6-20 tablet by ity of tablet 00:00: mouth [place] 00 every 72 Medical (sevent[facility]-t Branch wo) hours. fluconazole 2022- No [id number] 150mg Take 1 Univers 150 mg 6-20 02-14 tablet by ity of tablet 00:00: 00:00 mouth [place] 00 :00 every 72 Medical (sevent[facility]-t Branch wo) hours. fluconazole 2022- No [id number] 150mg Take 1 Univers 150 mg 6-20 02-14 tablet by ity of tablet 00:00: 00:00 mouth [place] 00 :00 every 72 Medical (sevent[facility]-t Branch wo) hours. fluconazole 2022- No [id number] 150mg Take 1 Univers 150 mg 6-20 02-14 tablet by ity of tablet 00:00: 00:00 mouth [place] 00 :00 every 72 Medical (seventy-t Branch wo) hours. fluconazole 2022- No [id number] 150mg Take 1 Univers 150 mg 6-20 02-14 tablet by ity of tablet 00:00: 00:00 mouth [place] 00 :00 every 72 Medical (seventy-t Branch wo) hours. metoprolol Yes [id number] 12.5mg Take 0.5 Univers tartrate 25 5-03 tablets by it y of mg tablet 00:00: mouth [place] 00 daily. Medical Branch metoprolol Yes [id number] 12.5mg Take 0.5 Univers tartrate 25 5-03 tablets by it y of mg tablet 00:00: mouth [place] 00 daily. Medical Branch metoprolol Yes [id number] 12.5mg Take 0.5 Univers tartrate 25 5-03 tablets by it y of mg tablet 00:00: mouth [place] 00 daily. Medical Branch metoprolol Yes [id number] 12.5mg Take 0.5 Univers tartrate 25 5-03 tablets by it y of mg tablet 00:00: mouth [place] 00 daily. Medical Branch metoprolol 2022- No [id number] 12.5mg Take 0.5 Univers tartrate 25 5-03 02-08 tablets by i ty of mg tablet 00:00: 00:00 mouth [place] 00 :00 daily. Medical Branch ferrous Yes [id number] 324mg Take 1 Un bruce sulfate 324 1-26 tablet by ity of mg (65 mg 00:00: mouth 2 [place] iron) EC 00 (two) Medical tablet times Branch daily with meals. ferrous Yes [id number] 324mg Take 1 Un bruce sulfate 324 1-26 tablet by ity of mg (65 mg 00:00: mouth 2 [place] iron) EC 00 (two) Medical tablet times Branch daily with meals. ferrous Yes [id number] 324mg Take 1 Un bruce sulfate 324 1-26 tablet by ity of mg (65 mg 00:00: mouth 2 [place] iron) EC 00 (two) Medical tablet times Branch daily with meals. ferrous Yes [id number] 324mg Take 1 Un bruce sulfate 324 1-26 tablet by ity of mg (65 mg 00:00: mouth 2 [place] iron) EC 00 (two) Medical tablet times Branch daily with meals. ferrous Yes [id number] 324mg Take 1 Un bruce sulfate 324 1-26 tablet by ity of mg (65 mg 00:00: mouth 2 [place] iron) EC 00 (two) Medical tablet times Branch daily with meals. ferrous Yes [id number] 324mg Take 1 Un bruce sulfate 324 1-26 tablet by ity of mg (65 mg 00:00: mouth 2 [place] iron) EC 00 (two) Medical tablet times Branch daily with meals. ferrous 2022- No [id number] 324mg Take 1 U nivers sulfate 324 1-26 02-14 tablet by it y of mg (65 mg 00:00: 00:[place] 00 :00 (two) Medical tablet times Branch daily with meals. ferrous 2022- No [id number] 324mg Take 1 U nivers sulfate 324 1-26 02-14 tablet by it y of mg (65 mg 00:00: 00:00 [place] EC 00 :00 (two) Medical tablet times Branch daily with meals. ferrous 2022- No [id number] 324mg Take 1 U nivers sulfate 324 06-12-14 tablet by it y of mg (65 mg 00:00: 00:00 [place] EC 00 :00 (two) Medical tablet times Branch daily with meals. ferrous 2022- No [id number] 324mg Take 1 U nivers sulfate 324 06-12-14 tablet by it y of mg (65 mg 00:00: 00:[place] iron[place] EC 00 :00 (two) Medical tablet times Branch daily with meals. omeprazole 0 Yes Univers 40 mg 5-02 ity of capsule 00:00: [address] omeprazole 2018-0 Yes Univers 40 mg 5-02 ity of capsule 00:00: [place] [address] Medical Branch omeprazole 2019-0 Yes Univers 40 mg 5-02 ity of capsule 00:00: [place] [address] Medical Branch omeprazole 2019-0 Yes Univers 40 mg 5-02 ity of capsule 00:00: [place] [address] Medical Branch omeprazole 2019-0 Yes Univers 40 mg 5-02 ity of capsule 00:00: [place] [address] Medical Branch omeprazole 2019-0 Yes Univers 40 mg 5-02 ity of capsule 00:00: [place] [address] Medical Branch omeprazole 2019-0 3- No Univer s 40 mg 5-02 02-14 ity of capsule 00:00: 00:00 [place] 00 :00 Medical Branch omeprazole 2019-0 3- No Univer s 40 mg 5-02 02-14 ity of capsule 00:00: 00:00 [place] 00 :00 Medical Branch omeprazole 2019-0 3- No Univer s 40 mg 5-02 02-14 ity of capsule 00:00: 00:00 [place] 00 :00 Medical Branch omeprazole 2019-0 3- No Univer s 40 mg 5-02 02-14 ity of capsule 00:00: 00:00 [place] 00 :00 Medical Branch Immunizations Ordered Filled Immunization Date Status Comments Sourc e Immunization Name Name Influenza Virus 2022-04-23 Completed Universit y of Vaccine Recomb Quad 00:00:00 [place] Medical IM, Preserv and ABX Branc h [...] rsity of MODERNA 12+ YRS 00:00:00 [place] [facility] ical VACCINE Branch SARS-COV-2 COVID-19 2020-12-18 Completed Unive rsity of MODERNA 12+ YRS 00:00:00 [place] [facility] ical VACCINE Branch SARS-COV-2 COVID-19 2020-12-18 Completed Unive rsity of MODERNA 12+ YRS 00:00:00 [place] [facility] ical VACCINE Branch SARS-COV-2 COVID-19 2020-12-18 Completed Unive rsity of MODERNA 12+ YRS 00:00:00 [place] [facility] ical VACCINE Branch SARS-COV-2 COVID-19 2020-12-18 Completed Unive rsity of MODERNA 12+ YRS 00:00:00 [facility] ical VACCINE Branch SARS-COV-2 COVID-19 2020-12-18 Completed Unive rsity of MODERNA 12+ YRS 00:00:00 [facility] ical VACCINE Branch SARS-COV-2 COVID-19 2020-12-18 Completed Unive rsity of MODERNA 12+ YRS 00:00:00 [facility] ical VACCINE Branch SARS-COV-2 COVID-19 2020-12-18 Completed Unive rsity of MODERNA 12+ YRS 00:00:00 [facility] ical VACCINE Branch Influenza Virus 2020-05-30 Completed Universit y of Vaccine Quad .5 mL 00:00:00 [place] Medical IM 6+ MO Branch Influenza Virus [...] y of Vaccine Quad .5 mL 00:00:00 [place] Medical IM 6+ MO Branch Influenza Virus 2020-05-30 Completed Universit y of Vaccine Quad .5 mL 00:00:00 [place] Medical IM 6+ MO Branch Influenza Virus 2020-05-30 Completed Universit y of Vaccine Quad .5 mL 00:00:00 [place] Medical IM 6+ MO Branch Influenza Virus [...] 00:00:00 [place] Medical IM 6+ MO Branch (FLUZONE/FLULAVAL/F LUARIX) Influenza Virus 2020-05-30 Completed Universit y of Vaccine Quad .5 mL 00:00:00 [place] Medical IM 6+ MO Branch (FLUZONE/FLULAVAL/F LUARIX) Influenza Virus 2020-05-30 Completed Universit y of Vaccine Quad .5 mL 00:00:00 [place] Medical IM 6+ MO Branch (FLUZONE/FLULAVAL/F LUARIX) Influenza Virus 2018-04-19 Completed Universit y of [...] 00:00:00 [place] Medical IM 6+ MO Branch (FLUZONE/FLULAVAL/F LUARIX) Influenza Virus 2018-04-19 Completed Universit y of Vaccine Quad .5 mL 00:00:00 [place] Medical IM 6+ MO Branch (FLUZONE/FLULAVAL/F LUARIX) Influenza Virus 2018-04-19 Completed Universit y of Vaccine Quad .5 mL 00:00:00 [place] Medical IM 6+ MO Branch (FLUZONE/FLULAVAL/F LUARIX) TDAP 2015-07-02 Completed University of 00:00:00 [facility] TDAP 2015-07-02 Completed University of 00:00:00 [facility] TDAP 2015-07-02 Completed University of 00:00:00 [facility] TDAP 2015-07-02 Completed University of 00:00:00 [facility] TDAP 2015-07-02 Completed University of 00:00:00 [facility] TDAP 2015-07-02 Completed University of 00:00:00 [facility] TDAP 2015-07-02 Completed University of 00:00:00 [place] [facility] TDAP 2015-07-02 Completed University of 00:00:00 [place] [facility] TDAP 2015-07-02 Completed University of 00:00:00 [place] [facility] TDAP 2015-07-02 Completed University of 00:00:00 [place] [facility] TDAP 2015-07-02 Completed University of 00:00:00 [place] [facility] TDAP 2015-07-02 Completed University of 00:00:00 [place] [facility] TDAP 2015-07-02 Completed University of 00:00:00 [place] [facility] TDAP 2015-07-02 Completed University of 00:00:00 [place] [facility] TDAP 2015-07-02 Completed University of 00:00:00 [place] [facility] TDAP 2015-07-02 Completed University of 00:00:00 [place] [facility] TDAP 2015-07-02 Completed University of 00:00:00 [facility] TDAP 2015-07-02 Completed University of 00:00:00 [facility] TDAP 2015-07-02 Completed University of 00:00:00 [place] [facility] TDAP 2015-07-02 Completed University of 00:00:00 [facility] TDAP 2015-07-02 Completed University of 00:00:00 [facility] TDAP 2015-07-02 Completed University of 00:00:00 [facility] TDAP 2015-07-02 Completed University of 00:00:00 [facility] TDAP 2015-07-02 Completed University of 00:00:00 [facility] TDAP 2015-07-02 Completed University of 00:00:00 [facility] TDAP 2015-07-02 Completed University of 00:00:00 [facility] TDAP 2015-07-02 Completed University of 00:00:00 [facility] TDAP 2015-07-02 Completed University of 00:00:00 [facility] TDAP 2015-07-02 Completed University of 00:00:00 [facility] TDAP 2015-07-02 Completed University of 00:00:00 [place] [facility] TDAP 2015-07-02 Completed University of 00:00:00 [place] [facility] TDAP 2015-07-02 Completed University of 00:00:00 [facility] TDAP 2015-07-02 Completed University of 00:00:00 [facility] TDAP 2015-07-02 Completed University of 00:00:00 [...] TD, NOS 1996-12-28 Completed University of 00:00:00 [place] [facility] TD, NOS 1996-12-28 Completed University of 00:00:00 [place] [facility] TD, NOS 1996-12-28 Completed University of 00:00:00 [place] [facility] TD, NOS 1996-12-28 Completed University of 00:00:00 [place] [facility] TD, NOS 1996-12-28 Completed University of 00:00:00 [place] [facility] TD, NOS 1996-12-28 Completed University of 00:00:00 [place] [facility] TD, NOS 1996-12-28 Completed University of 00:00:00 [facility] Vital Signs Vital Name Observation Time Observation Value Comments Source Systolic blood 2023-01-21 16:39:00 110 mm[Hg] Univer sity of pressure [facility] Diastolic blood 2023-01-21 16:39:00 73 mm[Hg] Unive rsity of [facility] Heart rate 2023-01-21 16:39:00 96 /min Universi ty [facility] Body height 2023-01-21 16:39:00 188 cm Universi ty [facility] Body weight 2023-01-21 16:39:00 91.173 kg Universi ty [facility] BMI 2023-01-21 16:39:00 25[facility]81 [facility] in 2023-01-21 16:39:00 99 /min [facility] Arterial blood by [facility] Pulse oximetry Branch Systolic blood 2023-01-12 17:41:00 108 mm[Hg] Univer sity of pressure [facility] Diastolic blood 2023-01-12 17:41:00 57 mm[Hg] Unive rsity of pressure [facility] Heart rate 2023-01-12 17:41:00 81 /min Universi ty [facility] Body temperature 2023-01-12 17:41:00 36.67 [facility] 2023-01-12 17:41:00 18 /min [facility] height 2023-01-12 17:41:00 188 cm Universi ty [facility] Body weight 2023-01-12 17:41:00 94.348 kg Universi ty [facility] BMI 2023-01-12 17:41:00 26.71 kg/m2 Universi ty of [place] [facility] Systolic blood 2022-11-24 19:49:00 108 mm[Hg] Univer sity of pressure [place] [facility] Diastolic blood 2022-11-24 19:49:00 74 mm[Hg] Unive rsity of pressure [place] [facility] Heart rate 2022-11-24 19:48:00 90 /min Universi ty of [place] [facility] Body height 2022-11-24 19:48:00 188 cm Universi ty of [place] [facility] Body weight 2022-11-24 19:48:00 103.193 kg Universi ty of [place] [facility] BMI 2022-11-24 19:48:00 29.21 kg/m2 Universi ty of [place] [facility] Oxygen saturation in 2022-11-24 19:48:00 97 /min University of Arterial blood by [facility] cornelius Pulse oximetry Branch Systolic blood 2022-09-08 20:43:00 128 mm[Hg] Univer sity of pressure [place] [facility] Diastolic blood 2022-09-08 20:43:00 78 mm[Hg] Unive rsity of pressure [place] [facility] Heart rate 2022-09-08 20:43:00 81 /min Universi ty of [place] [facility] Body temperature 2022-09-08 20:43:00 36.72 Alysa Univ ersity of [place] [facility] Respiratory rate 2022-09-08 20:43:00 16 /min Univ ersity of [place] [facility] Body weight 2022-09-08 20:43:00 105.688 kg Universi ty of [place] [facility] BMI 2022-09-08 20:43:00 29.92 kg/m2 Universi ty of [place] [facility] Oxygen saturation in 2022-09-08 20:43:00 99 /min University of Arterial blood by [facility] cornelius Pulse oximetry Branch Systolic blood 2022-08-21 14:07:00 106 mm[Hg] Univer sity of pressure [place] [facility] Diastolic blood 2022-08-21 14:07:00 68 mm[Hg] Unive rsity of pressure [place] [facility] Heart rate 2022-08-21 14:07:00 77 /min Universi ty of [place] [facility] Body temperature 2022-08-21 14:07:00 36.44 Alysa Univ ersity of [place] [facility] Body height 2022-08-21 14:07:00 188 cm Universi ty of [place] [facility] Body weight 2022-08-21 14:07:00 105.688 kg Universi ty of [place] [facility] BMI 2022-08-21 14:07:00 29.92 kg/m2 Universi ty of [place] [facility] Oxygen saturation in 2022-08-21 14:07:00 100 /min University of Arterial blood by [place] [employer] cornelius Pulse oximetry Branch Systolic blood 2022-07-24 15:49:00 109 mm[Hg] Univer sity of pressure [place] [facility] Diastolic blood 2022-07-24 15:49:00 60 mm[Hg] Unive rsity of pressure [place] [facility] Heart rate 2022-07-24 15:49:00 91 /min Universi ty of [place] [facility] Body temperature 2022-07-24 15:49:00 36.44 Alysa Univ ersity of [place] [facility] Respiratory rate 2022-07-24 15:49:00 18 /min Univ ersity of [place] [facility] Body height 2022-07-24 15:49:00 188 cm Universi ty of [place] [facility] Body weight 2022-07-24 15:49:00 106.913 kg Universi ty of [place] [facility] BMI 2022-07-24 15:49:00 30.26 kg/m2 Universi ty of [place] [facility] Oxygen saturation in 2022-07-24 15:49:00 99 /min University of Arterial blood by [place] [employer] cornelius Pulse oximetry Branch Systolic blood 2022-07-01 17:11:00 120 mm[Hg] Univer sity of pressure [place] [facility] Diastolic blood 2022-07-01 17:11:00 81 mm[Hg] Unive rsity of pressure [place] [facility] Heart rate 2022-07-01 17:11:00 110 /min Universi ty of [place] [facility] Body temperature 2022-07-01 17:11:00 36.67 Alysa Univ ersity of [place] [facility] Respiratory rate 2022-07-01 17:11:00 20 /min Univ ersity of [place] [facility] Body height 2022-07-01 17:11:00 188 cm Universi ty of [place] [facility] Body weight 2022-07-01 17:11:00 103.375 kg Universi ty of [place] [facility] BMI 2022-07-01 17:11:00 29.26 kg/m2 Universi ty [facility] Oxygen saturation in 2022-07-01 17:11:00 100 /min [facility] Arterial blood by [facility] Pulse oximetry Branch Systolic blood 2021-11-27 14:35:00 110 mm[Hg] Univer sity of pressure [facility] Diastolic blood 2021-11-27 14:35:00 75 mm[Hg] Unive rsity [facility] [place] Heart rate 2021-11-27 14:35:00 71 /min [place] [facility] Body temperature 2021-11-27 14:35:00 37.11 [facility] Body height 2021-11-27 14:35:00 188 cm [facility] Body weight 2021-11-27 14:35:00 111.585 kg [facility] BMI 2021-11-27 14:35:00 31.58 kg/m2 [facility] Procedures Procedure Date / Time Performed Performing Clinician Sourc e POCT URINALYSIS W/O 2023-01-12 17:49:00 Tyler Goodrich [facility] SPECIFIC GRAVITY [facility] CT ABDOMEN PELVIS W 2022-08-15 16:40:07 Lorena Fisher [facility] CONTRAST [facility] HB CREATININE 2022-08-15 16:25:00 Lorena Fisher [facility] SERUM/BLOOD FOR [facility] IMAGING NOTICE OF PRIVACY 2022-08-15 15:53:39 Doctor Unassigned, No [facility]ICES Name [facility] CONSENT/REFUSAL FOR 2022-08-15 15:53:14 [facility] TREATMENT ASSIGNMENT OF BENEFITS 2022-08-15 15:52:49 Doctor Unassigned, No [facility] GC & CHLAMYDIA 2022-07-24 16:24:00 [facility] o f [place] AMPLIFIED ASSAY Susan Chirinos [facility] GALV ONLY - VAGINAL 2022-07-24 16:24:00 Meliza [facility] PATHOGENS BY NUCLEIC Susan Chirinos [facility] ACID TESTING HSV 1&2, VZV NAAT 2022-07-24 16:24:[facility] 2022-07-24 15:39:32 Doctor Unassigned, No [facility] POLICY Name [facility] POCT URINALYSIS 2022-07-01 17:50:00 [facility] o [facility] URINE CULTURE 2022-07-01 17:45:00 [facility] o [facility] GALV ONLY - VAGINAL 2022-07-01 17:45[facility]LE[facility] ACID TESTING ASSIGNMENT OF BENEFITS 2022-07-01 17:02:49 Doctor Unassigned, No [facility] Branch DISCLOSURE AND 2021-11-27 05:01:00 Doctor Unassigned, No [facility] CONSENT, MEDICAL AND Name Medical [facility] SURGICAL PROCEDURES POCT TEST 2021-11-27 00:00:00 Rabia Sanchez [facility] Encounters Start End Encounter Admission Attending Care Care Encounter Source Date/Time Date/Time Type Type Clinicians Facility Department ID 2021-03-17 Emergency [facility] [id number] Univers 07:42:49 ity [facility] 2021-03-16 Emergency [facility] [id number] [facility] [id number] Univers [facility]:15[facility] 2023-01-21 2023-01-21 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 [id number] Vaibhav as APRIL?BLEA [id number] [place] reid [address] MEDICAL OFFICE BUILDING 2023-01-21 2023-01-21 Outpatient R KRISTIN [facility] [id number] Univers 12:00:00 11:59:55 SAMMI cornelia [facility] 2023-01-21 2023-01-21 Office Kristin [facility] [id number] Univers 11:30:00 11:49:12 Visit Sammi [place] [id number] it y of [place] [id number] Vaibhav as APRIL?BLEA [id number] Il reid [place] [address] [facility] OFFICE [facility] 2023-01-20 2023-01-20 Outpatient R MELIZA [facility] [id number] Univers 14:40:00 14:40:00 , SUSAN it y of [facility] 2023-01-14 2023-01-14 [facility] [id number] Univers 00:00:00 00:00:00 Management [facility] [id number] ity [facility] [id number] Vaibhav as APRIL?BLEA [id number] [facility] [address] [facility] OFFICE [facility] 2023-01-12 2023-01-12 [facility] [id number] Univers 13:00:00 13:24:43 TYLER ity [facility] 2023-01-12 2023-01-12 [facility] [id number] Univers 13:00:00 13:24:43 Visit [place] [id number] i ty [facility] [id number] [place] [id number] [place] [facility] [address] [facility] 2022-12-09 2022-12-09 Outpatient R KRISTIN [facility] [id number] Univers 11:30:00 11:30:00 SAMMI ity of [facility] 2022-12-03 2022-12-03 Refill Meliza [facility] [id number] Univers 00:00:00 00:00:00 , Susanedita [place] [id number] ity of [place] [id number] Vaibhav as APRIL?BLEA [id number] [facility] [address] [facility] OFFICE [facility] 2022-11-24 2022-11-24 Outpatient R KRISTIN [facility] [id number] Univers 14:30:00 15:02:34 SAMMI ity of [facility] 2022-11-24 2022-11-24 Office Kristin [facility] [id number] Univers 14:30:00 15:02:34 Visit Sammi [facility] [id number] it y of [place] [id number] Vaibhav as APRIL?BLEA [id number] [facility] [address] MEDICAL OFFICE BUILDING 2022-10-15 2022-10-15 Refeulalia Haider [facility] [id number] Univers 00:00:00 00:00:00 [facility] [id number] ity of [place] [id number] Vaibhav as APRLI?BLEA [id number] [address] MEDICAL OFFICE BUILDING 2022-10-15 2022-10-15 Refill Silas Martins [id number] Univers 00:00:00 00:00:00 Y PEDIATRIC [id number] ity [id number] [place] [id number] [place] [address] Branch CARE CLINIC 2022-09-08 2022-09-08 Urgent Adair Hope [facility] ..840.11 [id number] Univers 15:40:00 16:00:00 Care Unknown, [facility] HEALTH [id number] ity of [place] [id number] Vaibhav as APRIL?BLEA [id number] [facility] [address] MEDICAL OFFICE BUILDING 2022-09-08 2022-09-08 Outpatient R HERMINIA NVLEONEL [facility] [id number] Univers 15:40:00 15:40:00 ADAIR villanuevay [facility] 2022-08-21 2022-08-21 Office [place] [facility] 1.2.840.114 [id number] Univers 09:40:00 09:40:00 Visit Alana [facility] 350.1.13.10 ity of [place] 4.2.7.2.686 Vaibhav as APRIL?BLEA [phone] [address] MEDICAL OFFICE BUILDING 2022-08-21 2022-08-21 Outpatient R MELIZA [facility] [id number] Univers 09:30:00 09:30:00 , SUSAN it y of [facility] 2022-08-21 2022-08-21 Outpatient R ALANA AVILA [facility] [id number] Univers 09:40:00 09:25:29 ALANA AVILA ity [facility] 2022-08-15 2022-08-15 Outpatient [facility] [id number] [facility] 10:53:47 23:59:00 LORENA ity [facility] 2022-08-15 2022-08-15 [facility] 1.2.840.114 [id number] Univers 10:50:00 23:59:00 Encounter Lorena [facility] 350.1.13.10 ity [facility] 4.2.7.2.686 [place] [facility] [id number] [address] 2022-08-05 2022-08-05 Outpatient R [facility] [id number] Univers 11:00:00 11:00:00 , SUSAN it y of [facility] 2022-07-28 2022-07-28 [facility] 1.2.840.114 [id number] [facility] 00:00:00 00:00:00 , Susan [email or web address] 350.1.13.10 ity of [facility] 4.2.7.2.686 Vaibhav as APRIL?BLEA [id number] [address] MEDICAL OFFICE [facility] 2022-07-24 2022-07-24 Outpatient R [facility] [id number] Univers 09:45:00 10:29:18 , SUSAN it y of [facility] 2022-07-24 2022-07-24 Office [facility] 1.2.840.114 [id number] Univers 09:45:00 10:29:18 Visit , Susan HEALTH 350.1.13.10 ity of [facility] 4.2.7.2.686 Vaibhav as APRIL?BLEA [id number] [address] MEDICAL OFFICE [facility] 2022-07-24 2022-07-24 Orders Doctor MERCADO 1.2.840.114 [id number] Univers 00:00:00 00:00:00 Only Unassigned, LEROY 350.1.13.10 ity of [place] [facility] 4.2.7.2.686 Vaibhav as [id number] [address] 2022-07-16 2022-07-16 [facility] 1.2.840.114 [id number] Univers 00:00:00 00:00:00 , [facility] 350.1.13.10 ity of [place] 4.2.7.2.686 Vaibhav as APRIL?BLEA [phone] [address] OFFICE [facility] 2022-07-03 2022-07-03 [facility] 1.2.840.114 [id number] Univers 00:00:00 00:00:00 Management , [facility] 350.1.13.10 ity of [place] 4.2.7.2.686 Vaibhav as APRIL?BLEA [id number] [address] MEDICAL OFFICE [facility] 2022-07-01 2022-07-01 Outpatient R [facility] [id number] Univers 11:15:00 11:41:57 , SUSAN it y of [facility] 2022-07-01 2022-07-01 Office [facility] 1.2.840.114 [id number] Univers 11:15:00 11:41:57 Visit , [facility] 350.1.13.10 ity of [place] 4.2.7.2.686 Vaibhav as APRIL?BLEA [phone] [address] MEDICAL OFFICE [facility] 2022-07-01 2022-07-01 Orders Doctor MERCADO 1.2.840.114 [id number] Univers 00:00:00 00:00:00 Only Unassigned, LEROY 350.1.13.10 ity of [place] [facility] 4.2.7.2.686 Vaibhav as [id number] [address] 2022-06-25 2022-06-25 Outpatient R [facility] [id number] Univers 11:00:00 11:00:00 , DUNG ity [facility] 2022-06-24 2022-06-24 RefSilas Dodge 1.2.840.114 [id number] Univers 00:00:00 00:00:00 Y PEDIATRIC 350.1.13.10 ity of [place]2.7.2.686 [place] [id number] [facility] PRIMARY [address] [facility] 2022-06-19 2022-06-19 Outpatient R SILAS MARTINS [facility] [id number] Univers 14:30:00 14:30:00 ity [facility] 2022-06-05 2022-06-05 Outpatient R KP [facility] [id number] Univers 10:30:00 10:30:00 TYLER [facility] 2022-06-03 2022-06-03 LEILA Simmons 1.2.840.114 [id number] Univers 00:00:00 00:00:00 Management Stefaniecarlos eduardo KAYY 350.1.13.10 ity of [place] 4.2.7.2.686 [place] [id number] [place] 912536 [place] 2022-03-20 2022-03-20 Outpatient Maia HAIDER [facility] [id number] Univers 11:00:00 11:00:00 , SUSAN it y of [facility] 2021-11-27 2021-11-27 Office Rabia Sanchez [facility] 1.2.844.232 [id number] Univers 09:15:00 10:42:35 Visit Oleg INMAN 350.1.13.10 i ty of [place] 4.2.7.2.686 [place] [phone] Il dical [address] 2021-11-27 2021-11-27 Outpatient R RABIA SANCHEZ [facility] [id number] Univers 09:15:00 10:42:35 ity [facility] 2021-11-27 2021-11-27 Outpatient R RABIA SANCHEZ [facility] [id number] Univers 09:15:00 09:15:00 ity [facility] 2021-11-27 2021-11-27 Outpatient R RABIA SANCHEZ [facility] [id number] Univers 09:15:00 09:15:00 ity of [facility] 2021-11-27 2021-11-27 Orders Doctor JESS 1.2.840.114 [id number] Univers 00:00:00 00:00:00 Only Unassigned, LEROY 350.1.13.10 [facility] 4.2.7.2.686 Vaibhav as [id number] [address] 2021-11-20 2021-11-20 Outpatient R KP [facility] [id number] Univers 10:45:00 11:09:12 TYLER vila [facility] 2021-11-20 2021-11-20 Office Kp [facility] 1.2.262.620 [id number] Univers 10:45:00 11:09:12 Visit Tyler INMAN 350.1.13.10 i ty of [place] 4.2.7.2.686 [place] [phone] Il dical NAL 134 [facility] 2021-11-04 2021-11-04 Case Kp [facility] 1.2.389.228 [id number] Univers 00:00:00 00:00:00 Management Tyler INMAN 350.1.13.10 ity of [facility] 4.2.7.2.686 [place] [phone] Il dical NAL 134 [facility] 2021-10-31 2021-10-31 Assistant Center Manager Tj, Adriana Lab Main [facility] 1.2.8 40.114 [id number] [facility] 12:00:00 12:15:00 Visit Tyler Goodrich 350.1.13.10 ity of [facility] 4.2.7.2.686 [place] [phone] Il dical NAL 353 [facility] 2021-10-31 2021-10-31 Outpatient R KP [facility] [id number] Univers 10:15:00 11:15:11 TYLER vila [facility] 2021-10-31 2021-10-31 Office Kp [facility] 1.2.265.448 [id number] Univers 10:15:00 11:15:11 Visit Tyler INMAN 350.1.13.10 i ty of [facility] 4.2.7.2.686 [place] [phone] Il dical [address] 2021-10-31 2021-10-31 Outpatient R [facility] [id number] Univers 10:15:00 11:15:11 TYLER [facility] 2021-10-24 2021-10-24 Outpatient R KP [facility] [id number] Univers 11:15:00 11:15:00 TYLERNorth [facility] 2021-10-08 2021-10-08 Outpatient Maia SHETH [facility] [id number] Univers 09:30:00 09:30:00 MINE [facility] 2021-09-18 2021-09-18 Telephone Silas Martins 1.2.840.114 [id number] Univers 00:00:00 00:00:00 Y PEDIATRIC 350.1.13.10 it[place] of [place] [id number] [address] 2021-09-17 2021-09-17 Office Silas Martins 1.2.840.114 [id number] Univers 13:15:00 13:48:45 Visit Y PEDIATRIC 350.1.13.10 ity of [place].2.7.2.686 [place] [id number] [address] 2021-09-17 2021-09-17 Outpatient SILAS GUEVARA [facility] [id number] Univers 13:15:00 13:48:45 ity [facility] 2021-09-17 2021-09-17 Outpatient SILAS GUEVARA [facility] [id number] Univers 13:15:00 13:15:00 ity [facility] 2021-09-08 2021-09-08 Deya GLORIA 1.2.840.114 [id number] Univers 00:00:00 00:00:00 , Susan PEDIATRIC 350.1.13.10 ity of [place] 4.2.7.2.686 [place] [phone] [facility] PRIMARY 314 [facility] 2021-08-26 2021-08-26 Outpatient Maia ROLAND [facility] [id number] Univers 08:45:00 08:45:00 ELOY julito [facility] 2021-08-08 2021-08-08 Telephone [facility] 1.2.840.114 [id number] Univers 00:00:00 00:00:00 Alan SPECIALTY 350.1.13.10 ity of [facility] 4.2.7.2.686 [place] CENTER AT [phone] Il reid BOYER 198 [facility] 2021-07-30 2021-07-30 Outpatient [facility] [id number] Univers 00:00:00 00:00:00 ALAN vila [facility] 2021-07-16 2021-07-16 [facility] 1.2.560.402 [id number] Univers 16:51:18 23:59:00 Encounter Alan SPECIALTY 350.1.13.10 ity of [facility] 4.2.7.2.686 [place] CENTER AT [phone] Il reid BOYER 809 [facility] 2021-07-16 2021-07-16 Outpatient Maia CONDE [facility] [id number] Univers 16:51:18 23:59:00 ALAN vila [facility] 2021-07-16 2021-07-16 Office [facility] 1.2.840.114 [id number] Univers 15:50:00 16:00:00 Visit Alan SPECIALTY 350.1.13.10 ity of [facility] 4.2.7.2.686 [place] CENTER AT [phone] Il reid BOYER 198 [facility] 2021-07-16 2021-07-16 Outpatient Maia [facility] [id number] Univers 15:50:00 15:50:00 ALAN vila [facility] 2021-05-28 2021-05-28 Outpatient Maia SHETH [facility] [id number] Univers 15:30:00 15:30:00 MINE ity of [facility] 2021-05-21 2021-05-21 Outpatient R MELIZA [facility] [id number] Univers 11:00:00 11:00:00 , SUSAN kay [facility] 2021-04-18 2021-04-18 Outpatient R MELIZA [facility] [id number] Univers 11:15:00 11:57:00 , SUSAN kay [facility] 2021-04-18 2021-04-18 Office Meliza GLORIA 1.2.840.114 [id number] Univers 11:09:27 11:57:00 Visit , Susan PEDIATRIC 350.1.13.10 ity of [place]2.[place].2.686 [place] [phone] [address] CARE [facility] 2021-04-18 2021-04-18 Outpatient R MELIZA [facility] [id number] Univers 11:15:00 11:15:00 , SUSAN kay [facility] 2021-04-18 2021-04-18 Orders Doctor JESS 1.2.840.114 [id number] Univers 00:00:00 00:00:00 Only Unassigned, LEROY 350.1.13.10 ity of [place] [facility] 4.2.7.2.686 Vaibhav as [id number] [address] 2021-02-01 2021-02-01 Outpatient R MELIZA [facility] [id number] Univers 16:00:00 16:00:00 , SUSAN villanueva [facility] 2020-11-29 2020-11-29 Refill Barrett Faizan 1.2.840.114 [id number] Univers 00:00:00 00:00:00 , Susan Pediatric 350.1.13.10 ity of [place] 4.2.7.2.686 [place] [phone] [place] [address] [facility] 2020-11-29 2020-11-29 Refill Meliza Faizan 1.2.840.114 [id number] 00:00:00 00:00:00 , Susan Pediatric 350.1.13.10 M s and 4.2.7.2.686 Adult [phone] [place] [address] Care Clinic 2020-11-16 2020-11-16 Refill Meliza Gloria 1.2.840.114 [id number] Univers 00:00:00 00:00:00 , Susan Pediatric 350.1.13.10 ity of [place] and 4.2.7.2.686 [place] [phone] [place] [address] [address] Care [facility] 2020-11-16 2020-11-16 Refill Meliza Gloria 1.2.840.114 [id number] 00:00:00 00:00:00 , Susan Pediatric 350.1.13.10 M s and 4.2.7.2.686 Adult [id number] [address] 2020-11-15 2020-11-15 Office Faizan Morris 1.2.840.114 [id number] [facility] 11:30:23 12:00:23 Visit Arcelia Pediatric 350.1.13.10 ity of s and 4.2.7.2.686 [place] [id number] [place] [address] [address] [facility] 2020-11-15 2020-11-15 Office Faizan Morris 1.2.840.114 [id number] 11:30:23 12:00:23 Visit Arcelia Pediatric 350.1.13.10 s and 4.2.7.2.686 Adult [phone] [address] 2020-11-15 2020-11-15 Outpatient Maia MORRIS [facility] [id number] Univers 12:00:00 12:00:00 ARCELIA ity of [facility] 2020-11-14 2020-11-14 Telephone Kerry Collins 1.2.840.114 [id number] Univers 00:00:00 00:00:00 Ali Pediatric 350.1.13.10 ity of s and 4.2.7.2.686 [place] [id number] [place] [address] [address] [facility] 2020-11-13 2020-11-13 Patient Meliza Gloria 1.2.840.114 [id number] Univers 00:00:00 00:00:00 Secure Msg , Susan Pediatric 350.1.13.10 ity of [place] 4.2.7.2.686 [place] [phone] [address] 2020-11-13 2020-11-13 Patient Meliza Faizan 1.2.840.114 [id number] Univers 00:00:00 00:00:00 Secure Msg , Susan Pediatric 350.1.13.10 ity of [place] and 4.2.7.2.686 [place] [id number] [address] 2020-11-13 2020-11-13 Patient Barrett Faizan 1.2.840.114 [id number] 00:00:00 00:00:00 Secure Msg , Susan Pediatric 350.1.13.10 M s and 4.2.7.2.686 Adult [id number] [address] 2020-11-08 2020-11-08 Office Meliza Faizan 1.2.840.114 [id number] Univers 11:09:23 12:22:47 Visit , Susan Pediatric 350.1.13.10 ity of [place] and 4.2.7.2.686 [place] [id number] [address] 2020-11-08 2020-11-08 Outpatient R MELIZA [facility] [id number] Univers 11:00:00 11:00:00 , SUSAN it y of [facility] 2020-11-02 2020-11-02 Telephone Barrett Faizan 1.2.840.114 [id number] Univers 00:00:00 00:00:00 , Susan Pediatric 350.1.13.10 ity of [place] and 4.2.7.2.686 [place] [id number] [address] 2020-10-31 2020-10-31 Outpatient R NAOMI [facility] [id number] Univers 00:00:00 00:00:00 LORENA vila [facility] 2020-10-25 2020-10-25 Office Meliza Gloria 1.2.840.114 [id number] Univers 11:05:46 12:04:53 Visit , Susan Pediatric 350.1.13.10 ity of [place] and 4.2.7.2.686 [place] [id number] [facility] Primary [address] [facility] 2020-10-25 2020-10-25 Outpatient R MELIZA [facility] [id number] Univers 11:00:00 11:00:00 , SUSAN it y of [facility] 2020-10-23 2020-10-23 Outpatient R [facility] [id number] Univers 16:15:00 16:15:00 , SUSAN villanueva y [facility] 2020-08-28 2020-08-28 Outpatient R [facility] [id number] Univers 15:45:00 15:45:00 , SUSAN villanueva [facility] 2020-08-06 2020-08-06 [facility] 1.2.647.784 [id number] Univers 20:28:00 23:01:00 Rebeca [place] 350.1.13.10 ity of [place] 4.2.7.2.686 [place] [phone] [facility] [address] 2020-08-06 2020-08-06 Patient Jamie [facility] 1.2.840.114 [id number] Univers 00:00:00 00:00:00 Outreach Yves [facility] 350.1.13.10 i ty of [facility] 4.2.7.2.686 [place] [phone] Il dical [address] 2020-07-06 2020-07-06 Outpatient R [facility] [id number] Univers 14:00:00 14:00:00 ity of [facility] 2020-07-02 2020-07-02 Outpatient R [facility] [id number] Univers 08:00:00 08:00:00 ity of [facility] 2020-06-15 2020-06-15 Patient Kerry Collins [facility] 1.2.840.114 [id number] Univers 00:00:00 00:00:00 Secure Msg Rebeca FRIENDSWO 350.1.13.10 ity of [place] 4.2.7.2.686 [place] PEDIATRIC [phone] [facility] 2020-06-11 2020-06-11 Telephone Kerry Collins 1.2.840.114 [id number] Univers 00:00:00 00:00:00 Rebeca Pediatric 350.1.13.10 ity of s and 4.2.7.2.686 [place] [id number] [place] [address] [address] Care [facility] 2020-06-08 2020-06-08 Office Meliza Gloria 1.2.840.114 [id number] Univers 14:45:00 15:00:00 Visit , Susan Pediatric 350.1.13.10 ity of [place] and 4.2.7.2.686 [place] [id number] [place] [address] [address] [facility] 2020-06-08 2020-06-08 Outpatient R MELIZA [facility] [id number] Univers 14:45:00 14:45:00 , SUSAN villanueva [facility] 2020-06-08 2020-06-08 Outpatient R KERRY COLLINS [facility] [id number] Univers 14:40:00 14:40:00 ity of [facility] 2020-06-08 2020-06-08 Nurse Nurse, Gaudencio Gloria 1.2.84 0.114 [id number] Univers 13:56:21 14:16:21 Visit Kerry Collins Pediatric 350.1.13.10 ity of s and 4.2.7.2.686 [place] [phone] [place] [address] [address] [facility] 2020-06-01 2020-06-01 Outpatient R [facility] [id number] Univers 10:40:00 10:40:00 , SUSAN villanueva y [facility] 2020-05-30 2020-05-30 Office Meliza Gloria 1.2.840.114 [id number] Univers 15:50:39 17:01:06 Visit , Susan Pediatric 350.1.13.10 ity of [place] and 4.2.7.2.686 [place] [id number] [address] 2020-05-30 2020-05-30 Outpatient R MELIZA [facility] [id number] Univers 16:00:00 16:00:00 , SUSAN it y of [facility] 2020-05-25 2020-05-25 Kerry Butterfield 1.2.840.114 [id number] Univers 00:00:00 00:00:00 Ali Pediatric 350.1.13.10 ity of s and 4.2.7.2.686 [place] [phone] [address] 2020-05-25 2020-05-25 Kerry Butterfield 1.2.840.114 [id number] Univers 00:00:00 00:00:00 Ali Pediatric 350.1.13.10 ity of s and 4.2.7.2.686 [place] [phone] [address] 2020-04-16 2020-04-16 Tele[facility] 1.2.840.114 [id number] Univers 00:00:00 00:00:00 Tyler Inman 350.1.13.10 i ty of [place] 4.2.7.2.686 [place] Profess[place] [phone] [place] dic[address] 2020-04-10 2020-04-10 Nurse Nurse, [facility] 1.2.840.114 [id number] Univers 14:03:44 15:24:29 Visit Rabia Sanchez 350.1.13.10 ity of [place] 4.2.7.2.686 [place] Profess[place] [phone] Il dical nal [address] [place] [address] 2020-04-10 2020-04-10 Outpatient R [facility] [id number] Univers 14:30:00 14:30:00 ity of [facility] 2020-04-09 2020-04-09 Tele[facility] 1.2.227.775 [id number] Univers 00:00:00 00:00:00 Mine Inman 350.1.13.10 ity of [place] 4.2.7.2.686 [place] Profess[place] [phone] Il dical nal 134 [facility] 2020-04-06 2020-04-06 Outpatient Maia CORRIGANMELIZA [facility] [id number] Univers 11:45:00 11:45:00 , SUSAN it y of [facility] 2020-04-04 2020-04-04 [facility] 1.2.815.946 [id number] Univers 00:00:00 00:00:00 Mine Inman 350.1.13.10 ity of [place] 4.2.7.2.686 [place] [phone] [place] dic[address] 2020-03-31 2020-03-31 Emergency [facility] 1.2.402.555 [id number] Univers 21:29:00 22:52:00 Bridget Inman 350.1.13.10 ity of [place] 4.2.7.2.686 [place] [phone] [facility] [address]84 [place] 2020-03-31 2020-03-31 Orders Doctor JESS 1.2.840.114 [id number] Univers 00:00:00 00:00:00 Only Unassigned, LEROY 350.1.13.10 ity of [place] [facility] 4.2.7.2.686 Vaibhav as [id number] [facility] 009 [address] 2020-03-30 2020-03-30 Telephone [facility] 1.2.574.821 [id number] Univers 00:00:00 00:00:00 Mine Inman 350.1.13.10 ity of [place] 4.2.7.2.686 [place] [phone] Il dical nal 134 [facility] 2020-03-30 2020-03-30 Kerry Butterfield 1.2.840.114 [id number] Univers 00:00:00 00:00:00 Ali Pediatric 350.1.13.10 ity of s and 4.2.7.2.686 [place] [phone] [facility] Primary [address] [facility] 2020-03-28 2020-03-28 Nurse Nurse, [facility] 1.2.840.114 [id number] Univers 10:16:37 10:31:37 Visit MerylMine 350.1.13.10 ity of [place] 4.2.7.2.686 [place] [phone] [address] 2020-03-28 2020-03-28 Outpatient R [facility] [id number] Univers 10:30:00 10:30:00 ity [facility] 2020-01-06 2020-01-06 Telephone [facility] 1.2.840.114 [id number] Univers 00:00:00 00:00:00 Tyler Inman 350.1.13.10 i ty of [place] 4.2.7.2.686 [place] [id number] [address] 2019-12-27 2019-12-27 Telephone [facility] 1.2.875.742 [id number] Univers 00:00:00 00:00:00 Mine Carlos [place] 350.1.13.10 ity of [place] 4.2.7.2.686 [place] [phone] [address] 2019-12-26 2019-12-26 Outpatient [facility] [id number] Univers 11:15:00 11:15:00 TYLER kaycornelia [facility] 2019-12-21 2019-12-21 Office [facility] 1.2.840.114 [id number] Univers 13:53:18 14:45:28 Visit Mine Inman 350.1.13.10 ity of [place] 4.2.7.2.686 [place] [phone] [address] 2019-12-21 2019-12-21 Outpatient R [facility] [id number] Univers 13:30:00 13:30:00 MINE kaycornelia [facility] 2019-12-21 2019-12-21 Orders Doctor MERCADO 1..840.114 [id number] Univers 00:00:00 00:00:00 Only Unassigned, LEROY 350.1.13.10 ity of [place] [facility] 4.2.7.2.686 Vaibhav as [id number] [address] 2019-12-13 2019-12-13 Telephone Kp NVLEONEL 1.2.840.114 [id number] Univers 00:00:00 00:00:00 Tyler Henny 350.1.13.10 i ty of [place] 4.2.7.2.686 [place] [phone] [place] dic[address] 2019-12-06 2019-12-06 Refill Doctor JESSICA 1.2.840.114 [id number] Univers 00:00:00 00:00:00 Unassigned, [place] 350.1.13.10 ity [place] 4.2.7.2.686 [place] [phone] [address] 2019-12-06 2019-12-06 Refill Doctor Gloria 1.2.840.114 [id number] Univers 00:00:00 00:00:00 Unassigned, Pediatric 350.1.13.10 ity of [place] and 4.2.7.2.686 [place] [phone] [address] 2019-12-06 2019-12-06 Refill Doctor Gloria 1.2.840.114 [id number] [facility] 00:00:00 00:00:00 Unassigned, Pediatric 350.1.13.10 [place] [phone] [address] 2019-12-03 2019-12-03 Refill Kerry Collins 1.2.840.114 [id number] [facility] 00:00:00 00:00:00 Ali Pediatric 350.1.13.10 [place] [phone] [address] 2019-12-01 2019-12-01 Emergency Maximo [facility] 1.2.840.114 [id number] Univers 21:00:45 23:27:00 Giannicornelia Inman 350.1.13.10 i [place]7.2.[place] [phone] [facility] [address] 2019-12-01 2019-12-01 Orders Doctor JESS 1.2.840.114 [id number] [facility] 00:00:00 00:00:00 Only Unassigned, LERO[place] 350.1.13.10 ity of [place] [facility] 4.2.7.2.686 Vaibhav as [phone] [facility] [address] 2019-11-23 2019-11-23 Outpatient R KP, [facility] [id number] Univers 14:30:00 14:30:00 TYLER ity of [facility] 2019-11-01 2019-11-01 Kerry Butterfield 1.2.840.114 [id number] Univers 00:00:00 00:00:00 Ali Pediatric 350.1.13.10 [place] [phone] [facility] [address] [facility] 2019-10-05 2019-10-05 Kerry Butterfield 1.2.840.114 [id number] Univers 00:00:00 00:00:00 Ali Pediatric 350.1.13.10 [place] [phone] [facility] [address] [facility] 2019-08-29 2019-09-01 Urgent Arcelia Morris 1.2.840.1 [id number] Univers 11:10:52 09:07:40 Care Unknown, Attending Pediatric 350.1.13. 10 [place] [phone] [facility] [facility] 2019-09-01 2019-09-01 Patient Faizan Kumari 1.2.840.114 [id number] Univers 00:00:00 00:00:00 Secure Msg [place] S [facility] 350.1.13.10 [place] [phone] [facility] 2019-09-01 2019-09-01 Telephone Faizan Morris [id number] Univers 00:00:00 00:00:00 [place] [facility] 350.1.13.10 [place] [phone] [address] 2019-08-29 2019-08-29 Outpatient R UNKNOWN, [facility] [id number] Univers 11:00:00 11:00:00 ATTENDING ity of [facility] 2019-08-26 2019-08-26 Telephone Kerry Collins 1.2.840.114 [id number] Univers 00:00:00 00:00:00 Ali Pediatric 350.1.13.10 [place] [phone] [address] 2019-08-11 2019-08-11 RefKerry Stokes 1.2.840.114 [id number] Univers 00:00:00 00:00:00 Ali [facility] 350.1.13.10 [place] [id number] [address] 2019-06-15 2019-06-15 RefKerry Stokes 1.2.840.114 [id number] Univers 00:00:00 00:00:00 Ali Pediatric 350.1.13.10 [place] [id number] [address] 2019-05-13 2019-05-13 Patient Doctor [facility] 1.2.840.114 [id number] Univers 00:00:00 00:00:00 Secure Msg Unassigned, [place] 350.1.13.10 ity of [place] [phone] [place] dical [address] 2019-02-01 2019-02-01 Patient JESS Harris 1.2.840.114 [id number] Univers 00:00:00 00:00:00 Outreach Holly HARPER 350.1.13.10 ity of HOSPITAL 4.2.7.2.686 Vaibhav as [phone] [address] 2019-01-06 2019-01-[address] [facility] [id number] [facility] 11:22:10 11:52:10 Visit Cyrus Mcneil SPECIALTY 350.1.13.10 ity [place] [phone] Il sarahid MICHEAL 198 [facility] 2019-01-05 2019-01-05 Abstract [facility] 1.2.840.114 [id number] Univers 00:00:00 00:00:00 [place] SPECIALTY 350.1.13.10 ity of [facility] 4[place]2.7.2.[place] AT [phone] [facility] 198 [facility] 2018-12-27 2018-12-27 Telephone [facility] 1.2.840.114 [id number] Univers 00:00:00 00:00:00 Tyler Inman 350.1.13.10 i ty of [place] [phone] [address] 2018-12-21 2018-12-21 Patient JESS Harris 1.2.840.114 [id number] Univers 00:00:00 00:00:00 Outreach Holly Nunez LEROY 350.1.13.10 ity [facility] 4.2.7.2.686 Vaibhav as [phone] [address] 2018-12-13 2018-12-13 [facility] 1.2.840.114 [id number] Univers 00:00:00 00:00:00 Tyler Inman 350.1.13.10 i ty [place] [phone] [address] 2018-12-10 2018-12-10 [facility]phone [facility] 1.2.840.114 [id number] Univers 00:00:00 00:00:00 Tyler Inman 350.1.13.10 i ty of [place].2.[place] [phone] Il dical nal [address] [facility] 2018-10-15 2018-10-15 Emergency E [place], [facility] [id number] [address] 02:31:00 03:40:00 [facility] 2018-10-01 2018-10-01 Outpatient C PERCY, [facility] [id number] 08:05:00 23:59:00 [facility] Results Test Description Test Time [...] - Negative Lab Interpretation (test code = 29870-4) Abnormal [facility] URINALYSIS W/O SPECIFIC [id number] 17:49:00 Test Item Value Reference Range Interpretation [...] Negative Lab Interpretation (test code = Abnormal 52366-4) [facility] [id number] 21:45:20 Test Item Value Reference Range Interpretation Comments POCT Creatinine (test code = 0.9 mg/dL 0.5-1.6 [id number]) Lab Interpretation (test code = Normal 83787-6) [facility] URINALYSIS W SPECIFIC [id number] 17:52:00 Test Item Value Reference Range Interpretation [...] U APPEAR (test code = clear 3267) [facility] URINALYSIS W SPECIFIC [id number] 17:52:00 Test Item Value Reference Range Interpretation [...] U APPEAR (test code = clear 3267) [facility] URINALYSIS W SPECIFIC [id number] 17:52:00 Test Item Value Reference Range Interpretation [...] U APPEAR (test code = clear 3267) [facility] URINALYSIS W SPECIFIC [id number] 17:52:00 Test Item Value Reference Range Interpretation [...] U APPEAR (test code = clear 3267) [facility] [id number] 14:40:00 Test Item Value Reference Range Interpretation Comments POCT PREG (test code = 1605) Negative On board controls acceptable with C Yes Line (test code = 3574) POCT PREG LOT # (test code = 3575) POCT PREG TEST DATE (test code = 3576) [facility] [id number] 14:40:00 Test Item Value Reference Range Interpretation Comments POCT PREG (test code = 1605) Negative On board controls acceptable with C Yes Line (test code = 3574) POCT PREG LOT # (test code = 3575) POCT PREG TEST DATE (test code = 3576) [facility] WITH [id number] 08:51:45EXAM: CT ABDOMEN AND PELVIS WITH CONTRAST.LOCATION: D4.HISTORY: [id number]: Disorder of [id number]: Benign neoplasm of colon.COMPARISON:None.TECHNIQUE:CT abdomen and pelvis [...] pelvic ascites. Notes Date/Time Note Provider Source 2023-01-21 Formatting of this note is different from the or iginal. [facility] 12:00:00-00:00 Images from the original note were not included. Venipuncture collection perf ormed by clean technique on the right anticubitus. Total of 1 attempts were made. Slight pressure and a bandage/dressing were applied to the site(s). The patient experienced no complications. The follow ing specimens were processed according to instructions and sent to [facility] laboratories per lab order on 01/21/2023: LT BLUE SST 1 RED LAV 1 PPT DK GREEN (LiHep) DK GREEN (SodH) FRAUSTO DK BLUE (K2) DK BLUE (S) ACD Blood Culture NIPT/NTD 2022-12-03 Formatting of this note might be differe nt from the original. Kathleen Quezada [facility] 16:28:47-00:00 Next Appt: With Family Medicine (Kristin Zaldivar FNP) 12/09/2022 at 11:30 AM 2022-12-03 Formatting of this note is different fro m the original. Kathleen Quezada [facility] 15:00:22-00:00 Please review and fill historical med if appropr iate. Order History 4 months ago (07/24/2022) omeprazole 40 mg capsule Take 1 capsule by mouth in the morning. Dispense: Not specified Start: 07/20/2022 By: Doctor Unassigned, [place] Encounter Recent Visits Date Type Provider Dept [...]
[2023-01-30] MEDS ORDERED: MAGNES/ALUMIN/SIMET 30ML UCUP ONE ×2 (03:26→03:46)
[2023-01-30] MEDS ORDERED: PANTOPRAZOLE 40 MG INJ ONE (03:26)
--- NOTE | 2023-01-30 04:46 | ER ---
Nurse's Notes [facility] Name: Tg Quarles Age: 43 yrs Sex: Female : 1980 Arrival Date: 01/30/2023 Time: 02:54 Bed 5 Private MD: Diagnosis: Gastro-esophageal reflux disease without esophagitis Presentation: 01/30 03:28 Chief complaint: Patient states: My acid reflux started acting up around 2200. It wont jb4 go away. Coronavirus screen: At this time, the client does not indicate any symptoms associated with coronavirus-19. Ebola Screen: No symptoms or risks identified at this time. Initial Sepsis Screen: Does the patient meet any 2 criteria? HR > 90 bpm. Yes Does the patient have a suspected source of infection? No. Patient's initial sepsis screen is negative. Risk Assessment: Do you want to hurt yourself or someone else? Patient reports no desire to harm self or others. Onset of symptoms was January 29, 2023 at 22:00. Transition of care: patient was not received from another setting of care. 03:28 Method Of Arrival: Ambulatory jb4 03:28 Acuity: JULIENNE 3 jb4 Historical: - Allergies: 03:30 Sulfa (Sulfonamide Antibiotics); jb4 03:30 tramadol; jb4 - PMHx: 03:30 GERD; Anemia; Hypertension; UTI; jb4 - PSHx: 03:30 Cholecystectomy; right shoulder; jb4 - Immunization history:: Adult Immunizations up to date. - Social history:: Smoking status: Patient reports the use of cigarette tobacco products, smokes one-half pack cigarettes per day. - Family history:: not pertinent. - Hospitalizations: : No recent hospitalization is reported. Screenin:52 [facility] ED Fall Risk Assessment (Adult) History of falling in the last 3 months, jb4 including since admission No falls in past 3 months (0 pts) Confusion or Disorientation No (0 pts) Score/Fall Risk Level 0 - 2 = Low Risk Oriented to surroundings, Maintained a safe environment. Abuse screen: Denies threats or abuse. Nutritional screening: No deficits noted. Tuberculosis screening: No symptoms or risk factors identified. Assessment: 03:30 General: Appears in no apparent distress. uncomfortable, Behavior is calm, cooperative, jb4 appropriate for age. Pain: Complains of pain in mid-sternal area Pain does not radiate. Pain currently is 4 out of 10 on a pain scale. Quality of pain is described as burning. Neuro: Level of Consciousness is awake, alert, obeys commands, Oriented to person, place, time, situation. Cardiovascular: Patient's skin is warm and dry. Respiratory: Airway is patent Respiratory effort is even, unlabored, Respiratory pattern is regular, symmetrical. GI: No signs and/or symptoms were reported involving the gastrointestinal system. : No signs and/or symptoms were reported regarding the genitourinary system. EENT: No signs and/or symptoms were reported regarding the EENT system. Derm: Skin is intact, Skin is pink, warm \T\ dry. Musculoskeletal: Circulation, motion, and sensation intact. Range of motion: intact in all extremities. Vital Signs: 03:28 BP 129 / 78; Pulse 126; Resp 18; Temp 97.3(O); Pulse Ox 100% on R/A; Weight 91.17 kg; jb4 Height 6 ft. 2 in. ; Pain 4/10; 04:52 BP 128 / 71; Pulse 110; Resp 16; Pulse Ox 98% on R/A; jb4 03:28 Body Mass Index 25.81 (91.17 kg, 187.96 cm) jb4 03:28 Pain Scale: Adult jb4 ED Course: 02:59 Patient arrived in ED. jj6 03:00 Arnold Erickson MD is Attending Physician. rn 03:30 Triage completed. jb4 03:30 Arm band placed on right wrist. jb4 03:50 Inserted saline lock: 22 gauge in right antecubital area, using aseptic technique. jb4 04:52 Patient has correct armband on for positive identification. Bed in low position. Call jb4 light in reach. Side rails up X 1. 04:52 No provider procedures requiring assistance completed. IV discontinued, intact, jb4 bleeding controlled, No redness/swelling at site. Pressure dressing applied. Administered Medications: 03:21 Not Given (Other Intervention Used): GI Cocktail without - (Maalox PO jb4 Suspension 30 ml, Lidocaine Mucous Membrane Liquid 2 % 15 ml) PO once 03:21 Drug: Alum-Mag Hydroxide-Simeth PO Suspension (200 mg-200 mg-20 mg/5 mL) 30 ml Route: jb4 PO; 03:49 Drug: Pantoprazole IVP 40 mg Route: IVP; Site: right antecubital; jb4 Medication: 04:52 VIS not applicable for this client. jb4 Outcome: 04:45 Discharge ordered by . rn 04:52 Discharged to home ambulatory. jb4 04:52 Condition: stable 04:52 Discharge instructions given to patient, Instructed on discharge instructions, follow up and referral plans. Demonstrated understanding of instructions, follow-up care. 04:53 Patient left the ED. jb4 Signatures: Arnold Erickson MD MD rn Bryson, James, RN RN jb4 Eleonora Fisher jj6 Corrections: (The following items were deleted from the chart) 03:49 03:28 Pulse 126bpm; Resp 18bpm; Pulse Ox 100% RA; Temp 97.3F Oral; 91.17 kg; Height 6 jb4 ft. 2 in.; BMI: 25.8; Pain 4/10, Adult; jb4
--- NOTE | 2023-01-30 04:46 | EDPHYS ---
Physician Documentation [facility] Name: Tg Quarles Age: 43 yrs Sex: Female : 1980 Arrival Date: 01/30/2023 Time: 02:54 Bed 5 Private MD: ED Physician Arnold Erickson HPI: 01/30 03:20 This 43 yrs old Female presents to ER via Unassigned with complaints of ACID REFLUX. rn 03:20 Onset: The symptoms/episode began/occurred yesterday. The symptoms radiate to chest. rn The symptoms are described as burning. Modifying factors: The symptoms are alleviated by nothing, the symptoms are aggravated by food. Severity of pain: At its worst the pain was moderate in the emergency department the pain is unchanged. The patient has experienced similar episodes in the past. Patient reports is having bad acid reflux. Began yesterday. Takes omeprazole. Did not try Tums or anything else. Denies any fever/cough/shortness of breath. Feels identical to previous acid reflux problems but did not have any more medication at home so came here. States if had the medicine we have here she would just have stayed home.. Historical: - Allergies: 03:30 Sulfa (Sulfonamide Antibiotics); jb4 03:30 tramadol; jb4 - PMHx: 03:30 GERD; Anemia; Hypertension; UTI; jb4 - PSHx: 03:30 Cholecystectomy; right shoulder; jb4 - Immunization history:: Adult Immunizations up to date. - Social history:: Smoking status: Patient reports the use of cigarette tobacco products, smokes one-half pack cigarettes per day. - Family history:: not pertinent. - Hospitalizations: : No recent hospitalization is reported. ROS: 03:20 Constitutional: Negative for fever, chills, and weight loss, Cardiovascular: Negative rn for chest pain, palpitations, and edema, Respiratory: Negative for shortness of breath, cough, wheezing, and pleuritic chest pain, Abdomen/GI: Negative for vomiting, diarrhea, and constipation, MS/Extremity: Negative for injury and deformity, Skin: Negative for injury, rash, and discoloration, Neuro: Negative for headache, weakness, numbness, tingling, and seizure. Exam: 03:20 Constitutional: This is a well developed, well nourished patient who is awake, alert, rn and in no acute distress. Respiratory: No increased work of breathing, no retractions or nasal flaring. Vital Signs: 03:28 BP 129 / 78; Pulse 126; Resp 18; Temp 97.3(O); Pulse Ox 100% on R/A; Weight 91.17 kg; jb4 Height 6 ft. 2 in. ; Pain 4/10; 04:52 BP 128 / 71; Pulse 110; Resp 16; Pulse Ox 98% on R/A; jb4 03:28 Body Mass Index 25.81 (91.17 kg, 187.96 cm) jb4 03:28 Pain Scale: Adult jb4 MDM: 03:00 Patient medically screened. rn 04:43 Differential diagnosis: gastritis, gastroesophageal reflux disease, Peptic Ulcer rn Disease. Data reviewed: vital signs, nurses notes, and as a result, I will discharge patient. Counseling: I had a detailed discussion with the patient and/or guardian regarding the historical points, exam findings, and any diagnostic results supporting the discharge/admit diagnosis, the need for outpatient follow up, to return to the emergency department if symptoms worsen or persist or if there are any questions or concerns that arise at home. Response to treatment: the patient's symptoms have markedly improved after treatment, and as a result, I will discharge patient. Special discussion: I discussed with the patient/guardian in detail that at this point there is no indication for admission to the hospital. It is understood, however, that if the symptoms persist or worsen the patient needs to return immediately for re-evaluation. 01/30 03:11 Order name: EKG; Complete Time: 03:11 rn 01/30 03:11 Order name: IV Start; Complete Time: 03:49 rn 01/30 03:11 Order name: EKG - Nurse/Tech; Complete Time: 03:47 rn Administered Medications: 03:21 Not Given (Other Intervention Used): GI Cocktail without - (Maalox PO jb4 Suspension 30 ml, Lidocaine Mucous Membrane Liquid 2 % 15 ml) PO once 03:21 Drug: Alum-Mag Hydroxide-Simeth PO Suspension (200 mg-200 mg-20 mg/5 mL) 30 ml Route: jb4 PO; 03:49 Drug: Pantoprazole IVP 40 mg Route: IVP; Site: right antecubital; jb4 Disposition Summary: 01/30/23 04:45 Discharge Ordered Location: Home rn Problem: new rn Symptoms: have improved rn Condition: Stable rn Diagnosis - Gastro-esophageal reflux disease without esophagitis rn Followup: rn - With: Private Physician - When: As needed - Reason: Recheck today's complaints, Re-evaluation by your physician Discharge Instructions: - Discharge Summary Sheet rn - Gastroesophageal Reflux Disease, Adult rn Forms: - Medication Reconciliation Form rn - Thank You Letter rn - Antibiotic gold burnisher - Prescription Opioid Use rn - Patient Portal Instructions rn - Leadership Thank You Letter rn Signatures: Arnold Erickson MD MD rn Bryson, James, RN RN jb4
[2023-01-30 05:17] VITALS: TEMP 97.3
[2023-01-30 05:18] VITALS: BP 128/71; O2SAT 98
--- NOTE | 2023-01-30 16:32 | EKG ---
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
== END 2023-01-30 04:53 | disposition home or self-care (01) ==
LOC: ER 02:54
DX: K21.9 Gastro-esophageal reflux disease without esophagitis (principal); I10 Essential (primary) hypertension; F17.210 Nicotine dependence, cigarettes, uncomplicated; Z88.2 Allergy status to sulfonamides; Z88.5 Allergy status to narcotic agent
CPT/HCPCS: 93005; 96374; 99284; C9113

== ENCOUNTER 2023-03-04 22:29 | Emergency (ER) | payer OTHER ==
--- OUTSIDE RECORDS SUMMARY | 2023-03-04 22:34 | XMS REPORT | Continuity of Care Document ---
:1980 Author Organization [facility] [place] [facility] t Address [address] [facility] [address] [place] [address] Care Team Providers Name Role Phone SUSAN HAIDER Primary Care Physician Unavailable SUSAN HAIDER Attending Clinician Unavailable Susan Haider MD Attending Clinician [phone] Mannie Shell RN, Jaclyn Johnston Attending Clinician Unavailable Lab, Ang - Db Attending Clinician Unavailable LORENA FISHER Attending Clinician Unavailable Lorena Fisher MD Attending Clinician ADONIS FONSECA Attending Clinician Unavailable Adonis Fonseca DO Attending Clinician Sammi Steele Attending Clinician SAMMI FOSTER Attending Clinician Unavailable Tyler Goodrich PA-C Attending Clinician Doctor Unassigned, [place] Attending Clinician Unavailable TYLER GOODRICH Attending Clinician Unavailable Silas Martins MD Attending Clinician Adair Richmond Attending Clinician Unknown, Attending Attending Clinician Unavailable ADAIR HOPE Attending Clinician Unavailable ALANA FRANCO Attending Clinician Unavailable ALANA FRANCO Attending Clinician Unavailable DUNG SHAHID Attending Clinician Unavailable SILAS MARTINS Attending Clinician Unavailable Stefanie Abarca MA Attending Clinician Unavailable Rabia Sanchez MD Attending Clinician RABIA SANCHEZ Attending Clinician Unavailable Pob, Adc Lab Main Attending Clinician Unavailable MINE SHETH Attending Clinician Unavailable ELOY ROLAND Attending Clinician Unavailable Alan Conde MD Attending Clinician ALAN CONDE Attending Clinician Unavailable Morris BANDOLEER STRAIGHTENER STAMPER, Arcelia Attending Clinician MORRIS, MARIA Attending Clinician Unavailable Dennis ZAMORANO, Kerry Jose Attending Clinician Vy REARDON, Rebeca Johnston Attending Clinician Yves Ayala DO Attending Clinician KERRY COLLINS Attending Clinician Unavailable Nurse, Gaudencio Rawls Attending Clinician Unavailable Nurse, [facility] Attending Clinician Unavailable Mine Sheth MD Attending Clinician Vonda LENS MARKER, Bridget Sheth Attending Clinician Maximo BANDOLEER STRAIGHTENER STAMPER, Gianni B Attending Clinician Quoc PEANUT ROASTER, Michelle S Attending Clinician Unavailable UNKNOWN, ATTENDING Attending Clinician Unavailable Steven SHELL, Holly Nunez Attending Clinician Unavailable Fransico REARDON, Cyrus P Attending Clinician Melissa REARDON, [place] Nunez Attending Clinician DR MATT MCLAUGHLIN Attending Clinician Unavailable LORENA GREER Attending Clinician Unavailable SUSAN HAIDER Admitting Clinician Unavailable LORENA FISHER Admitting Clinician Unavailable DAONIS FONSECA Admitting Clinician Unavailable DR MATT MCLAUGHLIN Admitting Clinician Unavailable LORENA GREER Admitting Clinician Unavailable Payers Payer Name Policy Type Policy Number Effective Date Expiration Date [facility] [id number] 2017 00:00:00 Problems Condition Condition Condition Status Onset Resolution Last Treating Co mments Source Name Details Category Date Date Treatment Clinician Date Anemia, Anemia, Disease Active Univers unspecifie unspecifie 01-21 it y of d type d type 00:00: [address] Hypokalemi Hypokalemi Disease Active U nivers a a 9-06 ity of 00:00: [place] [address] Medical Branch Lumbar Lumbar Disease Active Univers pain pain 7-10 ity of 00:00: [address] Branch Essential Essential Disease Active Uni vers hypertensi hypertensi 5-03 it y of on on 00:00: [place] [address] Medical Branch History of History of Disease Active U nivers trichomona trichomona 8-05 it y of l l 00:00: [place] vaginitis vaginitis [address] [place] [address] Trichomona Trichomona Disease Active U nivers l l 7-17 ity of vulvovagin vul[place]ovagin [place] [facility] BV BV Disease Active Univers (bacterial (bacterial 7-17 it y of vaginosis) vaginosis[place] [address] [place] [address] Branch Obesity Obesity Disease Active Univers (BMI (BMI 7-08 ity of 30-39.9) 30-39.9) 00:00: [address] Branch Skin yeast Skin yeast Disease Active U nivers infection infection 7-18 ity of 00:00: [address] Screen for Screen for Disease Active U nivers STD STD 7-18 ity of (sexually (sexually 00:00: [place] transmit[place] transmitte 00 Me dical d disease) d disease) Br anch Depo Depo Disease Active Univers contracept contracept 7-18 it y of ion ion 00:00: [address] Branch Pain Pain Disease Active Univers pelvic pelvic 2-15 ity of 00:00: [address] Branch Surveillan Surveillan Disease Active U nivers ce of ce of 2-15 [place]y of [place] 00 [place] dical contracept contracept Br anch sosa method sosa method Irregular Irregular Disease Active Uni vers menstrual menstrual 2-15 ity of cycle cycle 00:00: [address] Well woman Well woman Disease Active U nivers exam exam 2-15 ity of without without 00:00: [place] gynecologi gynecologi 00 Me dical cornelius exam [...] History SDOH University o f Alcohol Comment [place] Med ical Branch Gender identity [facility]it y of [facility] Sexual orientation Univer sity of [facility] History of tobacco Cigarette Smoker University of use [facility] Tobacco Comment 2023-02-17 2023-02-17 Smokes 2-3 Universit y of 00:00:00 00:00:00 cigarettes [facility] occasionally Branch Tobacco use and 2023-02-17 2023-02-17 Smokeless tobacco Un iversity of exposure 00:00:00 00:00:00 non-user [facility] Alcohol intake 2023-02-17 2023-02-17 Ex-drinker University 00:00:00 00:00:00 (finding) [facility] Exposure to 2022-08-29 2022-09-08 Not sure [facility] SARS-CoV-2 (event) 00:00:00 15:36:00 [facility] History of Social 2022-07-01 2022-07-01 Univers ity of function 00:00:00 00:00:00 [place] [facility] History [facility] 2019-12-21 2019-12-21 2 University o f Alcohol Frequency 00:00:00 00:00:00 [place] M edical Branch History [facility] 2019-12-21 2019-12-21 99 University o f Alcohol Std Drinks 00:00:00 00:00:00 [place] [facility] History [facility] 2019-12-21 2019-12-21 99 [place] o f Alcohol Binge 00:00:00 00:00:00 [facility] al Branch Sex Ass[birth year] At [birth year] Universit y of 00:00:00 00:00:00 [place] [facility] [place] Smoking Status Start Date Stop Date Source Occasional tobacco smoker 2023-02[facility]17 [facility] F[facility] Start Stop Current Ordering Indication Dosage Frequency Signature Comments Components Source Medication Medication Date Date Medication? Clinician (SIG) Name Name busPIRone 2022-05 Yes [id number] 5mg Take 1 Univers mg tablet 0-03 tablet by ity o f 00:00: mouth in [place] [address] the Medical morning Branch and 1 tablet in the evening. busPIRone 2022-05 Yes [id number] 5mg Take 1 Univers mg tablet 0-03 tablet by ity o f 00:00: mouth in [place] [address] the Medical morning Branch and 1 tablet in the evening. busPIRone 2022-05 Yes [id number] 5mg Take 1 Univers mg tablet 0-03 tablet by ity o f 00:00: mouth in [place] [address] the Medical morning Branch and 1 tablet in the evening. busPIRone 2022-05 Yes [id number] 5mg Take 1 Univers mg tablet 0-03 tablet by ity o f 00:00: mouth in [place] [address] the Medical morning Branch and 1 tablet in the evening. busPIRone 2022-05 Yes [id number] 5mg Take 1 Univers mg tablet 0-03 tablet by ity o f 00:00: mouth in [place] [address] the Medical morning Branch and 1 tablet in the evening. METOPROLOL 2022-05 Yes [id number] TAKE Uni vers TARTRATE 25 0-02 ONE-HALF ity of mg tablet 00:00: (/2) [place] [address] TABLET(S) Medical BY MOUTH Branch EVERY MORNING. METOPROLOL 2022-05 Yes [id number] TAKE Uni vers TARTRATE 25 0-02 ONE-HALF ity of mg tablet 00:00: (2) [place] 00 TABLET(S) Medical BY MOUTH Branch EVERY MORNING. METOPROLOL 2022-05 Yes [id number] TAKE Uni vers TARTRATE 25 0-02 ONE-HALF ity of mg tablet 00:00: (2) [place] 00 TABLET(S) Medical BY MOUTH Branch EVERY MORNING. METOPROLOL 2022-05 Yes [id number] TAKE Uni vers TARTRATE 25 0-02 ONE-HALF ity of mg tablet 00:00: (2) [place] 00 TABLET(S) Medical BY MOUTH Branch EVERY MORNING. METOPROLOL 2022-05 Yes [id number] TAKE Uni vers TARTRATE 25 0-02 ONE-HALF ity of mg tablet 00:00: (05/19) [place] 00 TABLET(S) Medical BY MOUTH Branch EVERY MORNING. METOPROLOL 2022-05 Yes [id number] TAKE Uni vers TARTRATE 25 0-02 ONE-HALF ity of mg tablet 00:00: (05/19) [place] 00 TABLET(S) Medical BY MOUTH Branch EVERY MORNING. barium 2022- No [id number] 340g 340 g, Uni vers sulfate 02-11 Oral, ity of (LIQUID E-Z 16:15: 16:12 ONCE, 1 [place] PAQUE) 60 % 00 :00 dose, On Medi cornelius (w/v) oral Wed Branch suspension 02/11/23 at 340 g 1115, Routine metroNIDAZO Yes [id number] 500mg Take 1 Univers LE (FLAGYL) 8-30 tablet by ity of 500 mg 00:00: mouth [place] tablet 00 every 12 Medical (twelve) Branch hours. metroNIDAZO 0 Yes [id number] 500mg Take 1 Univers LE (FLAGYL) 8-30 tablet by ity of 500 mg 00:00: mouth [place] tablet 00 every 12 Medical (twelve) Branch hours. metroNIDAZO 0 Yes [id number] 500mg Take 1 Univers LE (FLAGYL) 8-30 tablet by ity of 500 mg 00:00: mouth [place] tablet 00 every 12 Medical (twelve) Branch hours. metroNIDAZO 0 Yes [id number] 500mg Take 1 Univers LE (FLAGYL) 8-30 tablet by ity of 500 mg 00:00: mouth [place] tablet 00 every 12 Medical (twelve) Branch hours. metroNIDAZO 2023-0 Yes [id number] 500mg Take 1 Univers LE (FLAGYL) 8-30 tablet by ity of 500 mg 00:00: mouth [place] tablet 00 every 12 Medical (twelve) Branch hours. metroNIDAZO 2023-0 Yes [id number] 500mg Take 1 Univers LE (FLAGYL) 8-30 tablet by ity of 500 mg 00:00: mouth [place] tablet 00 every 12 Medical (twelve) Branch hours. metroNIDAZO 2023-0 Yes [id number] 500mg Take 1 Univers LE (FLAGYL) 8-30 tablet by ity of 500 mg 00:00: mouth [place] tablet 00 every 12 Medical (twelve) Branch hours. metroNIDAZO 2023-0 Yes [id number] 500mg Take 1 Univers LE (FLAGYL) 8-30 tablet by ity of 500 mg 00:00: mouth [place] tablet 00 every 12 Medical (twelve) Branch hours. metroNIDAZO 2023-0 Yes [id number] 500mg Take 1 Univers LE (FLAGYL) 8-30 tablet by ity of 500 mg 00:00: mouth [place] tablet 00 every 12 Medical (twelve) Branch hours. metroNIDAZO 2023-0 2023- No [id number] 500mg Take 1 Univers LE (FLAGYL) 8-30 10-03 tablet by it y of 500 mg 00:00: 00:00 mouth [place] tablet 00 :00 every 12 Medical (twelve) Branch hours. metroNIDAZO 2023-0 2023- No [id number] 500mg Take 1 Univers LE (FLAGYL) 8-30 10-03 tablet by it y of 500 mg 00:00: 00:00 mouth [place] tablet 00 :00 every 12 Medical (twelve) Branch hours. METOPROLOL 2023-0 Yes [id number] TAKE Uni vers TARTRATE 25 8-24 ONE-HALF ity of mg tablet 00:00: (2) 00 TABLET(S) Medical BY MOUTH Branch EVERY MORNING. METOPROLOL 2023-0 Yes [id number] TAKE Uni vers TARTRATE 25 8-24 ONE-HALF ity of mg tablet 00:00: (2) 00 TABLET(S) Medical BY MOUTH Branch EVERY MORNING. METOPROLOL 2023-0 Yes [id number] TAKE Uni vers TARTRATE 25 8-24 ONE-HALF ity of mg tablet 00:00: (2) [place] 00 TABLET(S) Medical BY MOUTH Branch EVERY MORNING. METOPROLOL 2023-0 Yes [id number] TAKE Uni vers TARTRATE 25 8-24 ONE-HALF ity of mg tablet 00:00: (2) [place] 00 TABLET(S) Medical BY MOUTH Branch EVERY MORNING. METOPROLOL 2023-0 Yes [id number] TAKE Uni vers TARTRATE 25 8-24 ONE-HALF ity of mg tablet 00:00: (2) [place] 00 TABLET(S) Medical BY MOUTH Branch EVERY MORNING. METOPROLOL 2023-0 Yes [id number] TAKE Uni vers TARTRATE 25 8-24 ONE-HALF ity of mg tablet 00:00: (2) [place] 00 TABLET(S) Medical BY MOUTH Branch EVERY MORNING. METOPROLOL 2023-0 Yes [id number] TAKE Uni vers TARTRATE 25 8-24 ONE-HALF ity of mg tablet 00:00: (2) [place] 00 TABLET(S) Medical BY MOUTH Branch EVERY MORNING. METOPROLOL 2023-0 Yes [id number] TAKE Uni vers TARTRATE 25 8-24 ONE-HALF ity of mg tablet 00:00: (2) [place] 00 TABLET(S) Medical BY MOUTH Branch EVERY MORNING. METOPROLOL 2023-0 Yes [id number] TAKE Uni vers TARTRATE 25 8-24 ONE-HALF ity of mg tablet 00:00: (2) [place] 00 TABLET(S) Medical BY MOUTH Branch EVERY MORNING. METOPROLOL 2023-0 Yes [id number] TAKE Uni vers TARTRATE 25 8-24 ONE-HALF ity of mg tablet 00:00: (2) [place] 00 TABLET(S) Medical BY MOUTH Branch EVERY MORNING. METOPROLOL 2023-0 2023- No [id number] TAKE Un bruce TARTRATE 25 8-24 10-02 ONE-HALF ity of mg tablet 00:00: 00:00 (2) [place] 00 :00 TABLET(S) Medical BY MOUTH Branch EVERY MORNING. ondansetron 2022-0 Yes DISSOLVE 1 Univers 8 mg 7-19 TABLET IN ity of disintegrat 00:00: MOUTH [place] ing tablet 00 EVERY 12 Medic al HOURS Branch ondansetron 3-0 2023- No DISSOLVE 1 Univers 8 mg 7-19 10-03 TABLET IN ity of disintegrat 00:00: 00:00 [place] tablet 00 :00 EVERY 12 Medic al HOURS Branch ondansetron 2022-0 2022- No DISSOLVE 1 Univers 8 mg 7-19 10-03 TABLET IN ity of disintegrat 00:00: 00:00 [place]TH [place] tablet 00 :00 EVERY 12 Medic al HOURS Branch tiZANidine 3-0 Yes [id number] 2mg Take 1 Univers 2 mg 7-10 capsule by ity of capsule 00:00: mouth in [address] and 1 capsule at noon and 1 capsule in the evening. tiZANidine 3-0 Yes [id number] 2mg Take 1 Univers 2 mg 7-10 capsule by ity of capsule 00:00: mouth in [address] and 1 capsule at noon and 1 capsule in the evening. tiZANidine 3-0 Yes [id number] 2mg Take 1 Univers 2 mg 7-10 capsule by ity of capsule 00:00: mouth in [address] and 1 capsule at noon and 1 capsule in the evening. tiZANidine 3-0 Yes [id number] 2mg Take 1 Univers 2 mg 7-10 capsule by ity of capsule 00:00: mouth in [address] and 1 capsule at noon and 1 capsule in the evening. tiZANidine 3-0 Yes [id number] 2mg Take 1 Univers 2 mg 7-10 capsule by ity of capsule 00:00: mouth in [address] and 1 capsule at noon and 1 capsule in the evening. tiZANidine 3-0 Yes [id number] 2mg Take 1 Univers 2 mg 7-10 capsule by ity of capsule 00:00: mouth in [address] and 1 capsule at noon and 1 capsule in the evening. tiZANidine 2023-0 Yes [id number] 2mg Take 1 Univers 2 mg 7-10 capsule by ity of capsule 00:00: mouth in [address] and 1 capsule at noon and 1 capsule in the evening. tiZANidine 2023-0 Yes [id number] 2mg Take 1 Univers 2 mg 7-10 capsule by ity of capsule 00:00: mouth in [address] and 1 capsule at noon and 1 capsule in the evening. tiZANidine 2023-0 Yes [id number] 2mg Take 1 Univers 2 mg 7-10 capsule by ity of capsule 00:00: mouth in [address] and 1 capsule at noon and 1 capsule in the evening. tiZANidine 2023-0 Yes [id number] 2mg Take 1 Univers 2 mg 7-10 capsule by ity of capsule 00:00: mouth in [address] and 1 capsule at noon and 1 capsule in the evening. tiZANidine 2023-0 Yes [id number] 2mg Take 1 Univers 2 mg 7-10 capsule by ity of capsule 00:00: mouth in [address] and 1 capsule at noon and 1 capsule in the evening. tiZANidine 2023-0 Yes [id number] 2mg Take 1 Univers 2 mg 7-10 capsule by ity of capsule 00:00: mouth in [address] and 1 capsule at noon and 1 capsule in the evening. tiZANidine 2023-0 Yes [id number] 2mg Take 1 Univers 2 mg 7-10 capsule by ity of capsule 00:00: mouth in [address] and 1 capsule at noon and 1 capsule in the evening. tiZANidine 2023-0 Yes [id number] 2mg Take 1 Univers 2 mg 7-10 capsule by ity of capsule 00:00: mouth in [address] and 1 capsule at noon and 1 capsule in the evening. tiZANidine 2023-0 Yes [id number] 2mg Take 1 Univers 2 mg 7-10 capsule by ity of capsule 00:00: mouth in [address] and 1 capsule at noon and 1 capsule in the evening. tiZANidine 2023-0 2023- No [id number] 2mg Take 1 Univers 2 mg 7-10 10-03 capsule by ity of capsule 00:00: 00:00 mouth in [place] 00 :00 [facility] and 1 capsule at noon and 1 capsule in the evening. tiZANidine 2023-0 2023- No [id number] 2mg Take 1 Univers 2 mg 7-10 10-03 capsule by ity of capsule 00:00: 00:00 mouth in [place] 00 :00 the Medical morning Branch and 1 capsule at noon and 1 capsule in the evening. ibuprofen 2022-0 2022- No [id number] 800mg Take 1 Univers 800 mg 7-10 07-25 tablet by ity of tablet 00:00: 04:59 mouth [place] 00 :00 every 6 Medical (six) Branch hours as needed for Pain (scale 4-6) for up to 14 days. ibuprofen 2022-0 3- No [id number] 800mg Take 1 Univers 800 mg 7-10 07-25 tablet by ity of tablet 00:00: 04:59 mouth [place] 00 :00 every 6 Medical (six) Branch hours as needed for Pain (scale 4-6) for up to 14 days. ibuprofen 2022-0 2022- No [id number] 800mg Take 1 Univers 800 mg 7-10 07-25 tablet by ity of tablet 00:00: 04:59 mouth [place] 00 :00 every 6 Medical (six) Branch hours as needed for Pain (scale 4-6) for up to 14 days. ibuprofen 2022-0 2022- No [id number] 800mg Take 1 Univers 800 mg 7-10 07-25 tablet by ity of tablet 00:00: 04:59 mouth [place] 00 :00 every 6 Medical (six) Branch hours as needed for Pain (scale 4-6) for up to 14 days. metoprolol 3-0 Yes [id number] 12.5mg Take 0.5 Univers tartrate 25 5-31 tablets by it y of mg tablet 00:00: [place] the Medical morning. Branch metoprolol 3-0 Yes [id number] 12.5mg Take 0.5 Univers tartrate 25 5-31 tablets by it y of mg tablet 00:00: [place] 00 the Medical morning. Branch metoprolol 2023-0 Yes [id number] 12.5mg Take 0.5 Univers tartrate 25 5-31 tablets by it y of mg tablet 00:00: [place] 00 the Medical morning. Branch metoprolol 2023-0 Yes [id number] 12.5mg Take 0.5 Univers tartrate 25 5-31 tablets by it y of mg tablet 00:00: [place] 00 the Medical morning. Branch metoprolol 2023-0 Yes [id number] 12.5mg Take 0.5 Univers tartrate 25 5-31 tablets by it y of mg tablet 00:00: [place] 00 the Medical morning. Branch metoprolol Yes [id number] 12.5mg Take 0.5 Univers tartrate 25 5-31 tablets by it y of mg tablet 00:00: [place] 00 the Medical morning. Branch ketorolac 2022- No [id number] 60mg Un bruce (TORADOL) 09-0824 ity of injection 20:52: 20:56 [place] 60 mg 00 :00 Medical Branch ketorolac 2022- No [id number] 60mg 60 mg, Univers (TORADOL) 09-0824 Intramuscu ity of injection 20:52: 20:56 [place], ONCE, [place] 60 mg 00 :00 1 dose, On Medical Mon Branch 09/08/22 at 1600, Routine naproxen 2022- No [id number] 500mg Take 1 Univers 500 mg 09-08-05 tablet by ity of tablet 00:00: 04:59 mouth 2 [place] 00 :00 (two) Medical times Branch daily with meals as needed for Pain (scale 4-6) for up to 10 days. methocarbam 2022- No [id number] 500mg Take 1 Univers oL 500 mg 09-08-30 tablet by ity of tablet 00:00: 04:59 mouth 4 [place] 00 :00 (four) Medical times Branch daily as needed for Pain (scale 7-10) for up to 5 days. clotrimazol 2022- No [id number] Apply to [facility] e-betametha 08-21 area(s) 2 it y of sone cream 00:00: 04:59 (two) [place] 00 :00 times Medical daily for Branch 7 days. clotrimazol 2022- No [id number] Apply to [facility] e-betametha 08-21 area(s) 2 it y of sone cream 00:00: 04:59 (two) [place] 00 :00 times Medical daily for Branch 7 days. iopamidol 2022- No [id number] 100mL 100 mL, Univers (ISOVUE 08-15 Intravenou ity o f 370-500 mL) 17:30: 16:35 s, ONCE, 1 [place] injection 00 :00 dose, On Medica l 100 mL Fri Branch 08/15/22 at 1230, Routine metroNIDAZO 2022- No [id number] 500mg Take 1 Univers LE (FLAGYL) 07-28 tablet by it y of 500 mg 00:00: 04:59 mouth [place] tablet 00 :00 every 12 Medical (twelve) Branch hours for 7 days. fluconazole 2022- No [id number] 150mg Take 1 Univers 150 mg 07-2410 tablet by ity of tablet 00:00: 05:59 mouth [place] 00 :[place] now for 1 Medical dose. September Branch repeat dose in 3 days if needed fluconazole 2022-2022- No [id number] 150mg Take 1 Univers 150 mg 07-2410 tablet by ity of tablet 00:00: 05:59 mouth [place] 00 :00 now for 1 Medical dose. May Branch repeat dose in 3 days if needed fluconazole 2022- No [id number] 150mg Take 1 Univers 150 mg 07-2410 tablet by ity of tablet 00:00: 05:59 mouth [place] 00 :[place] now for 1 Medical dose. May Branch repeat dose in 3 days if needed fluconazole 2022-2022- No [id number] 150mg Take 1 Univers 150 mg 07-2410 tablet by ity of tablet 00:00: 05:59 mouth [place] 00 :00 now for 1 Medical dose. May Branch repeat dose in 3 days if needed omeprazole 2022-0 Yes 40mg Take 1 Unive rs 40 mg 3-05 capsule by ity of capsule 00:00: mouth in [place] 00 the Medical morning. Branch omeprazole 2022-0 Yes 40mg Take 1 Unive rs 40 mg 3-05 capsule by ity of capsule 00:00: mouth in [place] 00 the Medical morning. Branch omeprazole 2022-0 Yes 40mg Take 1 Unive rs 40 mg 3-05 capsule by ity of capsule 00:00: mouth in [place] 00 the Medical morning. Branch omeprazole 2022-0 Yes 40mg Take 1 Unive rs 40 mg 3-05 capsule by ity of capsule 00:00: mouth in [place] the Medical morning. Branch omeprazole 2023-0 Yes 40mg Take 1 Unive rs 40 mg 3-05 capsule by ity of capsule 00:00: mouth in [place] the Medical morning. Branch omeprazole 2023-0 Yes 40mg Take 1 Unive rs 40 mg 3-05 capsule by ity of capsule 00:00: mouth in [place] the Medical morning. Branch omeprazole 2023-0 Yes 40mg Take 1 Unive rs 40 mg 3-05 capsule by ity of capsule 00:00: mouth in [place] the Medical morning. Branch omeprazole 2023-0 Yes 40mg Take 1 Unive rs 40 mg 3-05 capsule by ity of capsule 00:00: mouth in [place] the Medical morning. Branch omeprazole 2023-0 Yes 40mg Take 1 Unive rs 40 mg 3-05 capsule by ity of capsule 00:00: mouth in [place] the Medical morning. Branch omeprazole 2023-0 Yes 40mg Take 1 Unive rs 40 mg 3-05 capsule by ity of capsule 00:00: mouth in [place] the Medical morning. Branch omeprazole 2023-0 Yes 40mg Take 1 Unive rs 40 mg 3-05 capsule by ity of capsule 00:00: mouth in [place] the Medical morning. Branch omeprazole 2023-0 Yes 40mg Take 1 Unive rs 40 mg 3-05 capsule by ity of capsule 00:00: mouth in [place] the Medical morning. Branch omeprazole 2023-0 Yes 40mg Take 1 Unive rs 40 mg 3-05 capsule by ity of capsule 00:00: mouth in [place] the Medical morning. Branch omeprazole 2023-0 Yes 40mg Take 1 Unive rs 40 mg 3-05 capsule by ity of capsule 00:00: mouth in [place] the Medical morning. Branch omeprazole 2023-0 Yes 40mg Take 1 Unive rs 40 mg 3-05 capsule by ity of capsule 00:00: mouth in [place] the Medical morning. Branch omeprazole 2023-0 Yes 40mg Take 1 Unive rs 40 mg 3-05 capsule by ity of capsule 00:00: mouth in [place] the Medical morning. Branch omeprazole 2023-0 Yes 40mg Take 1 Unive rs 40 mg 3-05 capsule by ity of capsule 00:00: mouth in [place] the Medical morning. Branch omeprazole 2023-0 Yes 40mg Take 1 Unive rs 40 mg 3-05 capsule by ity of capsule 00:00: mouth in [place] the Medical morning. Branch omeprazole 2023-0 Yes 40mg Take 1 Unive rs 40 mg 3-05 capsule by ity of capsule 00:00: mouth in [place] the Medical morning. Branch omeprazole 2023-0 Yes 40mg Take 1 Unive rs 40 mg 3-05 capsule by ity of capsule 00:00: mouth in [place] the morning. Branch omeprazole 2023-0 Yes 40mg Take 1 Unive rs 40 mg 3-05 capsule by ity of capsule 00:00: mouth in [place] the morning. Branch omeprazole 2023-0 Yes 40mg Take 1 Unive rs 40 mg 3-05 capsule by ity of capsule 00:00: mouth in [place] the morning. Branch omeprazole 2023-0 Yes 40mg Take 1 Unive rs 40 mg 3-05 capsule by ity of capsule 00:00: mouth in [place] the morning. Branch omeprazole 2023-0 Yes 40mg Take 1 Unive rs 40 mg 3-05 capsule by ity of capsule 00:00: mouth in [place] the Medical morning. Branch omeprazole 2023-0 Yes 40mg Take 1 Unive rs 40 mg 3-05 capsule by ity of capsule 00:00: mouth in [place] the morning. Branch omeprazole 2023-0 Yes 40mg Take 1 Unive rs 40 mg 3-05 capsule by ity of capsule 00:00: mouth in [place] the Medical morning. Branch omeprazole 2023-0 Yes 40mg Take 1 Unive rs 40 mg 3-05 capsule by ity of capsule 00:00: mouth in [place] the Medical morning. Branch omeprazole 2023-0 Yes 40mg Take 1 Unive rs 40 mg 3-05 capsule by ity of capsule 00:00: mouth in [place] the Medical morning. Branch omeprazole 2023-0 Yes 40mg Take 1 Unive rs 40 mg 3-05 capsule by ity of capsule 00:00: mouth in [place] the Medical morning. Branch omeprazole 2023-0 Yes 40mg Take 1 Unive rs 40 mg 3-05 capsule by ity of capsule 00:00: mouth in [place] 00 the Medical morning. [place] omeprazole Yes 40mg Take 1 Unive rs 40 mg 3-05 capsule by ity of capsule 00:00: mouth in [place] 00 the Medical morning. [place] fluconazole 2022- No [id number] 150mg Take 1 [facility] (DIFLUCAN) 07-17 tablet by ity [place] 150 mg 00:00: 05:[place] 00 :00 now for 1 Medical dose. [place] metroNIDAZO 2022- No [id number] 500mg Take 1 [facility] LE 500 mg 07-03 tablet by ity of tablet 00:00: 05:59 mouth in [place] 00 :00 the Medical morning Branch and 1 tablet in the evening. Do all this for 7 days. clotrimazol 2022- No [id number] Apply to [facility] e-betametha 07-01 area(s) 2 it y of sone cream 00:00: 05:59 (two) [place] 00 :00 times Medical daily for Branch 14 days. clotrimazol 2022- No [id number] Apply to [facility] e-betametha 07-01 area(s) 2 it y of sone cream 00:00: 05:59 (two) [place] 00 :00 times Medical daily for Branch 14 days. clotrimazol 2022- No [id number] Apply to [facility] e-betametha 07-01 area(s) 2 it y of sone cream 00:00: 05:59 (two) [place] 00 :00 times Medical daily for Branch 14 days. clotrimazol 2022- No [id number] Apply to [facility] e-betametha 07-01 area(s) 2 it y of sone cream 00:00: 05:59 (two) [place] 00 :00 times Medical daily for Branch 14 days. clotrimazol 2022- No [id number] Apply to [facility] e-betametha 07-01 area(s) 2 it y of sone cream 00:00: 05:59 (two) [place] 00 :00 times Medical daily for Branch 14 days. fluconazole 2022- No [id number] 200mg Take 1 [facility] 200 mg 2-14 -15 tablet by [place]y [place] tablet 00:00: 05:[place] 00 :[place] now for 1 Medical dose. Branch fluconazole 2022- No [id number] 200mg Take 1 [facility] 200 mg 2-14 -15 tablet by ity of tablet 00:00: 05:59 [place] 00 :[place] now for 1 Medical dose. Branch fluconazole 2022-2022- No [id number] 200mg Take 1 [facility] 200 mg 2-14 -15 tablet by ity of tablet 00:00: 05:59 [place] 00 :[place] now for 1 Medical dose. Branch fluconazole 2022-2022- No [id number] 200mg Take 1 [facility] 200 mg 2-14 -15 tablet by ity of tablet 00:00: 05:59 [place] 00 :[place] now for 1 Medical dose. Branch METOPROLOL 0 Yes [id number] Take 1/2 [facility] TARTRATE 25 2-08 (one-half) it y of mg tablet 00:00: tablet by [place] as 00 mouth once Medical daily Branch METOPROLOL 0 Yes [id number] Take 1/2 [facility] TARTRATE 25 2-08 (one-half) it y of mg tablet 00:00: tablet by [place] 00 mouth once Medical daily Branch METOPROLOL 2022-0 Yes [id number] Take 1/2 [facility] TARTRATE 25 2-08 (one-half) it y of mg tablet 00:00: tablet by [place] as 00 mouth once Medical daily Branch METOPROLOL 0 Yes [id number] Take 1/2 [facility] TARTRATE 25 2-08 (one-half) it y of mg tablet 00:00: tablet by [place] 00 mouth once Medical daily Branch METOPROLOL 2022-0 Yes [id number] Take 1/2 [facility] TARTRATE 25 2-08 (one-half) it y of mg tablet 00:00: tablet by [place] 00 mouth once Medical daily Branch METOPROLOL 2022-0 Yes [id number] Take 1/2 [facility] TARTRATE 25 2-08 (one-half) it y of mg tablet 00:00: tablet by [place] 00 mouth once Medical daily Branch METOPROLOL 2022-0 Yes [id number] Take 1/2 [facility] TARTRATE 25 2-08 (one-half) it y of mg tablet 00:00: tablet by [place] 00 mouth once Medical daily Branch METOPROLOL 2022-0 Yes [id number] Take 1/2 [facility] TARTRATE 25 2-08 (one-half) it y of mg tablet 00:00: tablet by [place] 00 mouth once Medical daily Branch METOPROLOL 2022-0 Yes [id number] Take 1/2 [facility] TARTRATE 25 2-08 (one-half) it y of mg tablet 00:00: tablet by [place] 00 mouth once Medical daily Branch METOPROLOL 2022-0 Yes [id number] Take 1/2 [facility] TARTRATE 25 2-08 (one-half) it y of mg tablet 00:00: tablet by [place] 00 mouth once Medical daily Branch METOPROLOL 2022-0 Yes [id number] Take 1/2 [facility] TARTRATE 25 2-08 (one-half) it y of mg tablet 00:00: tablet by [place] 00 mouth once Medical daily Branch METOPROLOL 2022-0 Yes [id number] Take 1/2 [facility] TARTRATE 25 2-08 (one-half) it y of mg tablet 00:00: tablet by Vabihav as 00 mouth once Medical daily Branch METOPROLOL 2022-0 Yes [id number] Take 1/2 [facility] TARTRATE 25 2-08 (one-half) it y of mg tablet 00:00: tablet by [place] 00 mouth once Medical daily Branch METOPROLOL 2022-0 Yes [id number] Take 1/2 Univers TARTRATE 25 2-08 (one-half) it y of mg tablet 00:00: tablet by [place] 00 mouth once Medical daily Branch METOPROLOL 3-0 Yes [id number] Take 1/2 Univers TARTRATE 25 2-08 (one-half) it y of mg tablet 00:00: tablet by [place] 00 mouth once Medical daily Branch METOPROLOL 3-0 Yes [id number] Take 1/2 Univers TARTRATE 25 2-08 (one-half) it y of mg tablet 00:00: tablet by [place] 00 mouth once Medical daily Branch METOPROLOL 3-0 Yes [id number] Take 1/2 [facility] TARTRATE 25 2-08 (one-half) it y of mg tablet 00:00: tablet by [place] as 00 mouth once Medical daily Branch METOPROLOL 3-0 Yes [id number] Take 1/2 [facility] TARTRATE 25 2-08 (one-half) it y of mg tablet 00:00: tablet by [place] as 00 mouth once Medical daily Branch METOPROLOL 2022- No [id number] Take 1/2 Univers TARTRATE 25 2-08 05-31 (one-half) i ty of mg tablet 00:00: 00:00 tablet by [facility] 00 :00 mouth once Medical daily Branch miconazole 0 Yes [id number] 100mg Insert 1 [facility] 100 mg 7-06 Suppositor ity of vaginal 00:00: y into [place] suppository 00 vagina at [facility] bedtime. Branch miSOPROStoL Yes [id number] Take one [facility] 200 mcg 7-06 tablet ity of tablet 00:00: night [place] 00 before Medical procedure, Branch then take one tablet morning of procedure miconazole 0 Yes [id number] 100mg Insert 1 [facility] 100 mg 7-06 Suppositor ity of vaginal 00:00: y into [place] suppository 00 vagina at [facility] bedtime. Branch miSOPROStoL 0 Yes [id number] Take one [facility] 200 mcg 7-06 tablet ity of tablet 00:00: night [place] 00 before Medical procedure, Branch then take one tablet morning of procedure miconazole 2021-0 Yes [id number] 100mg Insert 1 [facility] 100 mg 7-06 Suppositor ity of vaginal 00:00: y into [place] suppository 00 vagina at [facility] bedtime. Branch miSOPROStoL 0 Yes [id number] Take one [facility] 200 mcg 7-06 tablet ity of tablet 00:00: night [place] 00 before Medical procedure, Branch then take one tablet morning of procedure miconazole 2021-0 Yes [id number] 100mg Insert 1 [facility] 100 mg 7-06 Suppositor ity of vaginal 00:00: y into [place] suppository 00 vagina at [facility] bedtime. Branch miSOPROStoL 0 Yes [id number] Take one [facility] 200 mcg 7-06 tablet ity of tablet 00:00: night [place] 00 before Medical procedure, Branch then take one tablet morning of procedure miconazole 2021-0 Yes [id number] 100mg Insert 1 [facility] 100 mg 7-06 Suppositor ity of vaginal 00:00: y into [place] suppository 00 vagina at [facility] bedtime. Branch miSOPROStoL Yes [id number] Take one [facility] 200 mcg 7-06 tablet ity of tablet 00:00: night [place] 00 before Medical procedure, Branch then take one tablet morning of procedure miconazole Yes [id number] 100mg Insert 1 [facility] 100 mg 7-06 Suppositor ity of vaginal 00:00: y into [place] suppository 00 vagina at [facility] bedtime. Branch miSOPROStoL Yes [id number] Take one [facility] 200 mcg 7-06 tablet ity of tablet 00:00: night [place] 00 before Medical procedure, Branch then take one tablet morning of procedure miconazole 2022- No [id number] 100mg Insert 1 [facility] 100 mg -14 Suppositor ity of vaginal 00:00: 00:00 y into [place] suppository 00 :00 vagina at [facility] bedtime. Branch miSOPROStoL 2022- No [id number] Take one [facility] 200 mcg -10 17-14 tablet ity of tablet 00:00: 00:00 night [place] 00 :00 before Medical procedure, Branch then take one tablet morning of procedure miconazole 2022- No [id number] 100mg Insert 1 [facility] 100 mg -14 Suppositor ity of vaginal 00:00: 00:00 y into [place] suppository 00 :00 vagina at [facility] bedtime. Branch miSOPROStoL 2022- No [id number] Take one [facility] 200 mcg -14 tablet ity of tablet 00:00: 00:00 night [place] 00 :00 before Medical procedure, Branch then take one tablet morning of procedure miconazole 2022- No [id number] 100mg Insert 1 [facility] 100 mg -14 Suppositor ity of vaginal 00:00: 00:00 y into [place] suppository 00 :00 vagina at [facility] bedtime. Branch miSOPROStoL 2022- No [id number] Take one [facility] 200 mcg -10 17-14 tablet ity of tablet 00:00: 00:00 night [place] 00 :00 before Medical procedure, Branch then take one tablet morning of procedure miconazole 2021-2022- No [id number] 100mg Insert 1 [facility] 100 mg -06 02-14 Suppositor ity of vaginal 00:00: 00:00 y into [place] suppository 00 :00 vagina at [facility] bedtime. Branch miSOPROStoL 2022- No [id number] Take one [facility] 200 mcg 7-14 tablet ity of tablet 00:00: 00:00 night [place] 00 :00 before Medical procedure, Branch then take one tablet morning of procedure fluconazole Yes [id number] 150mg Take 1 [facility] 150 mg 6-20 tablet by ity of tablet 00:00: mouth [place] 00 every 72 Medical (seventy-t Branch wo) hours. fluconazole Yes [id number] 150mg Take 1 [facility] 150 mg 6-20 tablet by ity of tablet 00:00: mouth [place] 00 every 72 Medical (seventy-t Branch wo) hours. fluconazole Yes [id number] 150mg Take 1 [facility] 150 mg 6-20 tablet by ity of tablet 00:00: mouth [place] 00 every 72 Medical (seventy-t Branch wo) hours. fluconazole Yes [id number] 150mg Take 1 [facility] 150 mg 6-20 tablet by ity of tablet 00:00: mouth [place] 00 every 72 Medical (seventy-t Branch wo) hours. fluconazole Yes [id number] 150mg Take 1 [facility] 150 mg 6-20 tablet by ity of tablet 00:00: mouth [place] 00 every 72 Medical (seventy-t Branch wo) hours. fluconazole Yes [id number] 150mg Take 1 [facility] 150 mg 6-20 tablet by ity of tablet 00:00: mouth [place] 00 every 72 Medical (seventy-t Branch wo) hours. fluconazole 2022- No [id number] 150mg Take 1 [facility] 150 mg 6-20 02-14 tablet by ity of tablet 00:00: 00:00 mouth [place] 00 :00 every 72 Medical (seventy-t Branch wo) hours. fluconazole 2021-2022- No [id number] 150mg Take 1 [facility] 150 mg 6-20 02-14 tablet by ity of tablet 00:00: 00:00 mouth [place] 00 :00 every 72 Medical (seventy-t Branch wo) hours. fluconazole 2022- No [id number] 150mg Take 1 [facility] 150 mg 6-20 02-14 tablet by ity of tablet 00:00: 00:00 mouth [place] 00 :00 every 72 Medical (seventy-t Branch wo) hours. fluconazole 2022- No [id number] 150mg Take 1 [facility] 150 mg 6-20 02-14 tablet by ity of tablet 00:00: 00:00 mouth [place] 00 :00 every 72 Medical (seventy-t Branch wo) hours. metoprolol Yes [id number] 12.5mg Take 0.5 Univers tartrate 25 5-03 tablets by it y of mg tablet 00:00: mouth [place] 00 daily. Medical Branch metoprolol Yes [id number] 12.5mg Take 0.5 [facility] tartrate 25 5-03 tablets by it y of mg tablet 00:00: mouth [place] 00 daily. Medical Branch metoprolol Yes [id number] 12.5mg Take 0.5 [facility] tartrate 25 5-03 tablets by it y of mg tablet 00:00: mouth [place] 00 daily. Medical Branch metoprolol Yes [id number] 12.5mg Take 0.5 [facility] tartrate 25 5-03 tablets by it y of mg tablet 00:00: mouth [place] 00 daily. Medical Branch metoprolol 3- No [id number] 12.5mg Take 0.5 [facility] tartrate 25 5-03 02-08 tablets by i ty of mg tablet 00:00: 00:00 mouth [place] 00 :00 daily. Medical Branch ferrous 0 Yes [id number] 324mg Take 1 Un bruce sulfate 324 1-26 tablet by ity of mg (65 mg 00:00: mouth 2 [place] iron) EC 00 (two) Medical tablet times Branch daily with meals. ferrous 0 Yes [id number] 324mg Take 1 Un bruce sulfate 324 1-26 tablet by ity of mg (65 mg 00:00: mouth 2 [place] iron) EC 00 (two) Medical tablet times Branch daily with meals. ferrous Yes [id number] 324mg Take 1 Un bruce sulfate 324 1-26 tablet by ity of mg (65 mg 00:00: mouth 2 [place] iron) EC 00 (two) Medical tablet times Branch daily with meals. ferrous Yes [id number] 324mg Take 1 Un bruce sulfate 324 1-26 tablet by ity of mg (65 mg 00:00: mouth 2 [place] iron) EC 00 (two) Medical tablet times Branch daily with meals. ferrous Yes [id number] 324mg Take 1 Un bruce sulfate 324 1-26 tablet by ity of mg (65 mg 00:00: mouth 2 [place] iron) EC 00 (two) Medical tablet times Branch daily with meals. ferrous Yes [id number] 324mg Take 1 Un bruce sulfate 324 1-26 tablet by ity of mg (65 mg 00:00: mouth 2 [place] iron) EC 00 (two) Medical tablet times Branch daily with meals. ferrous 2022- No [id number] 324mg Take 1 U nivers sulfate 324 - 02-14 tablet by it y of mg (65 mg 00:00: 00:00 mouth [place] iron) EC 00 :00 (two) Medical tablet times Branch daily with meals. ferrous 2022- No [id number] 324mg Take 1 U nivers sulfate 324 - 02-14 tablet by it y of mg (65 mg 00:00: 00:00 mouth 2 [place] iron) EC 00 :00 (two) Medical tablet times Branch daily with meals. ferrous 2022- No [id number] 324mg Take 1 U nivers sulfate 324 - 02-14 tablet by it y of mg (65 mg 00:00: 00:00 mouth 2 [place] iron) EC 00 :00 (two) Medical tablet times Branch daily with meals. ferrous 2022- No [id number] 324mg Take 1 U nivers sulfate 324 06-12 02-14 tablet by it y of mg (65 mg 00:00: 00:00 mouth 2 [place] iron) EC 00 :00 (two) Medical tablet times Branch daily with meals. ferrous 2022- No [id number] 324mg Take 1 U nivers sulfate 324 -26 02-14 tablet by it y of mg (65 mg 00:00: 00:00 mouth 2 [place] iron) EC 00 :00 (two) Medical tablet times Branch daily with meals. METOPROLOL 2020- No [id number] TAKE 1/2 Univers TARTRATE 25 7-20 01-13 TABLET BY it y of mg tablet 00:00: 00:00 MOUTH [place] 00 :00 EVERY DAY Medical Branch naproxen 2019-0 1- No [id number] 500mg Take 1 Univers (NAPROSYN) 01-06 104 tablet by ity of 500 mg 00:00: 00:00 mouth 2 [place] tablet 00 :00 (two) Medical times Branch daily with meals. omeprazole 2019-0 Yes Univers 40 mg 5-02 ity of capsule 00:00: [place] [address] Medical Branch omeprazole 2019-0 Yes [facility] 40 mg 5-02 ity of capsule 00:00: [place] [address] Medical Branch omeprazole 2019-0 Yes Univers 40 mg 5-02 ity of capsule 00:00: [place] [address] Medical Branch omeprazole 2019-0 Yes [facility] 40 mg 5-02 ity of capsule 00:00: [place] [address] Medical Branch omeprazole 2019-0 Yes Univers 40 mg 5-02 ity of capsule 00:00: [place] [address] Medical Branch omeprazole 2019-0 Yes Univers 40 mg 5-02 ity of capsule 00:00: [place] [address] Medical Branch omeprazole 2019-0 2023- No Univer s 40 mg 5-02 02-14 ity of capsule 00:00: 00:00 [place] 00 :00 Medical Branch omeprazole 2019-0 2023- No Univer s 40 mg 5-02 02-14 ity of capsule 00:00: 00:00 [place] 00 :00 Medical Branch omeprazole 2019-0 2023- No Univer s 40 mg 5-02 02-14 ity of capsule 00:00: 00:00 [place] 00 :00 Medical Branch omeprazole 2019-0 2023- No Univer s 40 mg 5-02 02-14 ity of capsule 00:00: 00:00 [place] 00 :00 Medical Branch omeprazole 2019-0 2023- No Univer s 40 mg 5-02 02-14 ity of capsule 00:00: 00:00 [place] 00 :00 Medical Branch omeprazole 2019-0 2023- No Univer s 40 mg 5-02 02-14 ity of capsule 00:00: 00:00 [place] 00 :00 Medical Branch Immunizations Ordered Filled Date Status Comments Source Immunization Name Immunization Name Influenza Virus 2022-04-23 Completed Universit y of Vaccine Recomb Quad 00:00:00 [facility] IM, Preserv and ABX Branc h Free [...] rsity of MODERNA 12+ YRS 00:00:00 [place] [facility] ical VACCINE Branch SARS-COV-2 COVID-19 2020-12-18 Completed Unive rsity of MODERNA 12+ YRS 00:00:00 [facility] ical VACCINE Branch Influenza Virus 2020-05-30 Completed Universit y of Vaccine Quad .5 mL 00:00:00 [place] Medical IM 6+ MO Branch Influenza Virus [...] y of Vaccine Quad .5 mL 00:00:00 [place] Medical IM 6+ MO Branch Influenza Virus [...] y of Vaccine Quad .5 mL 00:00:00 [place] Medical 6+ MO Branch (FLUZONE/FLULAVAL/F LUARIX) Influenza Virus 2018-04-19 Completed Universit y of Vaccine Quad .5 mL 00:00:00 [place] Medical 6+ MO Branch (FLUZONE/FLULAVAL/F LUARIX) Influenza Virus 2018-04-19 Completed Universit y of Vaccine Quad .5 mL 00:00:00 [place] Medical 6+ MO Branch (FLUZONE/FLULAVAL/F LUARIX) TDAP 2015-07-02 Completed University of 00:00:00 [facility] TDAP 2015-07-02 Completed University of 00:00:00 [facility] TDAP 2015-07-02 Completed University of 00:00:00 [facility] TDAP 2015-07-02 Completed University of 00:00:00 [facility] TDAP 2015-07-02 Completed University of 00:00:00 [facility] TDAP 2015-07-02 Completed University of 00:00:00 [facility] TDAP 2015-07-02 Completed University of 00:00:00 [place] [facility] TDAP 2015-07-02 Completed University of 00:00:00 [place] [facility] TDAP 2015-07-02 Completed University of 00:00:00 [place] [facility] Branch TDAP 2015-07-02 Completed University of 00:00:00 [facility] Branch TDAP 2015-07-02 Completed University of 00:00:00 [place] [facility] Branch TDAP 2015-07-02 Completed University of 00:00:00 [place] [facility] TDAP 2015-07-02 Completed University of 00:00:00 [place] [facility] TDAP 2015-07-02 Completed University of 00:00:00 [place] [facility] TDAP 2015-07-02 Completed University of 00:00:00 [place] [facility] TDAP 2015-07-02 Completed University of 00:00:00 [place] [facility] TDAP 2015-07-02 Completed University of 00:00:00 [facility] TDAP 2015-07-02 Completed University of 00:00:00 [facility] Branch TDAP 2015-07-02 Completed University of 00:00:00 [facility] Branch TDAP 2015-07-02 Completed University of 00:00:00 [facility] Branch TDAP 2015-07-02 Completed University of 00:00:00 [facility] Branch TDAP 2015-07-02 Completed University of 00:00:00 [facility] Branch TDAP 2015-07-02 Completed University of 00:00:00 [facility] Branch TDAP 2015-07-02 Completed University of 00:00:00 [facility] TDAP 2015-07-02 Completed University of 00:00:00 [facility] Branch TDAP 2015-07-02 Completed University of 00:00:00 [facility] Branch TDAP 2015-07-02 Completed University of 00:00:00 [facility] Branch TDAP 2015-07-02 Completed University of 00:00:00 [place] [facility] TDAP 2015-07-02 Completed University of 00:00:00 [place] [facility] TDAP 2015-07-02 Completed University of 00:00:00 [place] [facility] TDAP 2015-07-02 Completed University of 00:00:00 [facility] Branch TDAP 2015-07-02 Completed University of 00:00:00 [facility] Branch TDAP 2015-07-02 Completed University of 00:00:00 [place] [facility] TDAP 2015-07-02 Completed University of [...] TD, NOS 1996-12-28 Completed University of 00:00:00 [place] [facility] TD, NOS 1996-12-28 Completed University of 00:00:00 [place] [facility] TD, NOS 1996-12-28 Completed University of 00:00:00 [place] [facility] TD, NOS 1996-12-28 Completed University of 00:00:00 [place] [facility] TD, NOS 1996-12-28 Completed University of 00:00:00 [place] [facility] TD, NOS 1996-12-28 Completed University of 00:00:00 [place] [facility] TD, NOS 1996-12-28 Completed University of 00:00:00 [place] [facility] TD, NOS 1996-12-28 Completed University of 00:00:00 [facility] TD, NOS Unknown Completed [facility] TDAP Unknown Completed [facility] Influenza Virus Unknown Completed Universit y of Vaccine Quad .5 mL [place] [facility] IM 6+ MO Branch (FLUZONE/FLULAVAL/F LUARIX) Influenza Virus Unknown Completed Universit y of Vaccine Quad .5 mL [facility] IM 6+ MO Branch (FLUZONE/FLULAVAL/F LUARIX) SARS-COV-2 COVID-19 Unknown Completed Unive rsity of MODERNA 12+ YRS [facility] ica VACCINE Branch SARS-COV-2 COVID-19 Unknown Completed Unive rsity of MODERNA 12+ YRS [facility] VACCINE Branch Influenza Virus Unknown Completed Universit y of Vaccine Recomb Quad [facility] IM, Preserv and ABX Branc h Free 18-64 YRS TD, NOS Unknown Completed [facility] TDAP Unknown Completed [facility] Influenza Virus Unknown Completed Universit y of Vaccine Quad .5 mL [place] [facility] IM 6+ MO Branch (FLUZONE/FLULAVAL/F LUARIX) Influenza Virus Unknown Completed Universit y of Vaccine Quad .5 mL [place] [facility] IM 6+ MO Branch (FLUZONE/FLULAVAL/F LUARIX) SARS-COV-2 COVID-19 Unknown Completed Unive rsity of MODERNA 12+ YRS [facility] VACCINE Branch SARS-COV-2 COVID-19 Unknown Completed Unive rsity of MODERNA 12+ YRS [facility] VACCINE Branch Influenza Virus Unknown Completed Universit y of Vaccine Recomb Quad [facility] IM, Preserv and ABX Branc h Free 18-64 YRS TD, NOS Unknown Completed [facility] TDAP Unknown Completed [facility] Influenza Virus Unknown Completed Universit y of Vaccine Quad .5 mL [place] [facility] IM 6+ MO Branch (FLUZONE/FLULAVAL/F LUARIX) Influenza Virus Unknown Completed Universit y of Vaccine Quad .5 mL [place] [facility] IM 6+ MO Branch (FLUZONE/FLULAVAL/F LUARIX) SARS-COV-2 COVID-19 Unknown Completed Unive rsity of MODERNA 12+ YRS [facility] ica VACCINE Branch SARS-COV-2 COVID-19 Unknown Completed Unive rsity of MODERNA 12+ YRS [facility] VACCINE Branch Influenza Virus Unknown Completed Universit y of Vaccine Recomb Quad [place] [facility] IM, Preserv and ABX Branc h Free 18-64 YRS TD, NOS Unknown Completed [facility] TDAP Unknown Completed [facility] Influenza Virus Unknown Completed Universit y of Vaccine Quad .5 mL [place] [facility] IM 6+ MO Branch (FLUZONE/FLULAVAL/F LUARIX) Influenza Virus Unknown Completed Universit y of Vaccine Quad .5 mL [place] [facility] IM 6+ MO Branch (FLUZONE/FLULAVAL/F LUARIX) SARS-COV-2 COVID-19 Unknown Completed Unive rsity of MODERNA 12+ YRS [facility] VACCINE Branch SARS-COV-2 COVID-19 Unknown Completed Unive rsity of MODERNA 12+ YRS [facility] VACCINE Branch Influenza Virus Unknown Completed Universit y of Vaccine Recomb Quad [place] [facility] IM, Preserv and ABX Branc h Free 18-64 YRS TD, NOS Unknown Completed [facility] TDAP Unknown Completed [facility] Influenza Virus Unknown Completed Universit y of Vaccine Quad .5 mL [place] [facility] IM 6+ MO Branch (FLUZONE/FLULAVAL/F LUARIX) Influenza Virus Unknown Completed Universit y of Vaccine Quad .5 mL [place] [facility] IM 6+ MO Branch (FLUZONE/FLULAVAL/F LUARIX) SARS-COV-2 COVID-19 Unknown Completed Unive rsity of MODERNA 12+ YRS [facility] VACCINE Branch SARS-COV-2 COVID-19 Unknown Completed Unive rsity of MODERNA 12+ YRS [facility] VACCINE Branch TD, NOS Unknown Completed [facility] TDAP Unknown Completed [facility] Influenza Virus Unknown Completed Universit y of Vaccine Quad .5 mL [place] [facility] IM 6+ MO Branch (FLUZONE/FLULAVAL/F LUARIX) TD, NOS Unknown Completed [facility] TDAP Unknown Completed [facility] Influenza Virus Unknown Completed Universit y of Vaccine Quad .5 mL [place] [facility] IM 6+ MO Branch (FLUZONE/FLULAVAL/F LUARIX) TD, NOS Unknown Completed [facility] TDAP Unknown Completed [facility] Influenza Virus Unknown Completed Universit y of Vaccine Quad .5 mL [place] [facility] IM 6+ MO Branch (FLUZONE/FLULAVAL/F LUARIX) Influenza Virus Unknown Completed Universit y of Vaccine Quad .5 mL [facility] IM 6+ MO Branch (FLUZONE/FLULAVAL/F LUARIX) SARS-COV-2 COVID-19 Unknown Completed Unive rsity of MODERNA 12+ YRS [facility] VACCINE Branch SARS-COV-2 COVID-19 Unknown Completed Unive rsity of MODERNA 12+ YRS [facility] VACCINE Branch Influenza Virus Unknown Completed Universit y of Vaccine Recomb Quad [facility], Preserv and ABX Branc h Free 18-64 YRS TD, NOS Unknown Completed [facility] TDAP Unknown Completed [facility] Influenza Virus Unknown Completed Universit y of Vaccine Quad .[address] [facility] 6+ MO Branch (FLUZONE/FLULAVAL/F LUARIX) Influenza Virus Unknown Completed Universit y of Vaccine Quad .[address] [facility] 6+ MO Branch (FLUZONE/FLULAVAL/F LUARIX) SARS-COV-2 COVID-19 Unknown Completed Unive rsity of MODERNA 12+ YRS [facility] VACCINE Branch SARS-COV-2 COVID-19 Unknown Completed Unive rsity of MODERNA 12+ YRS [facility] VACCINE Branch Influenza Virus Unknown Completed Universit y of Vaccine Recomb Quad [facility] IM, Preserv and ABX Branc h Free 18-64 YRS TD, NOS Unknown Completed [facility] TDAP Unknown Completed [facility] Influenza Virus Unknown Completed Universit y of Vaccine Quad .5 mL [facility] IM 6+ MO Branch (FLUZONE/FLULAVAL/F LUARIX) Influenza Virus Unknown Completed Universit y of Vaccine Quad .[address] [facility] 6+ MO Branch (FLUZONE/FLULAVAL/F LUARIX) SARS-COV-2 COVID-19 Unknown Completed Unive rsity of MODERNA 12+ YRS [facility] VACCINE Branch SARS-COV-2 COVID-19 Unknown Completed Unive rsity of MODERNA 12+ YRS [facility] VACCINE Branch Influenza Virus Unknown Completed Universit y of Vaccine Recomb Quad [facility] IM, Preserv and ABX Branc h Free 18-64 YRS TD, NOS Unknown Completed [facility] TDAP Unknown Completed [facility] Influenza Virus Unknown Completed Universit y of Vaccine Quad .5 mL [facility] IM 6+ MO Branch (FLUZONE/FLULAVAL/F LUARIX) Influenza Virus Unknown Completed Universit y of Vaccine Quad .5 mL [facility] IM 6+ MO Branch (FLUZONE/FLULAVAL/F LUARIX) SARS-COV-2 COVID-19 Unknown Completed Unive rsity of MODERNA 12+ YRS [facility] VACCINE Branch SARS-COV-2 COVID-19 Unknown Completed Unive rsity of MODERNA 12+ YRS [facility] VACCINE Branch Influenza Virus Unknown Completed Universit y of Vaccine Recomb Quad [facility] IM, Preserv and ABX Branc h Free 18-64 YRS TD, NOS Unknown Completed [facility] TDAP Unknown Completed [facility] Influenza Virus Unknown Completed Universit y of Vaccine Quad .5 mL [facility] IM 6+ MO Branch (FLUZONE/FLULAVAL/F LUARIX) Influenza Virus Unknown Completed Universit y of Vaccine Quad .5 mL [facility] IM 6+ MO Branch (FLUZONE/FLULAVAL/F LUARIX) SARS-COV-2 COVID-19 Unknown Completed Unive rsity of MODERNA 12+ YRS [facility] VACCINE Branch SARS-COV-2 COVID-19 Unknown Completed Unive rsity of MODERNA 12+ YRS [facility] VACCINE Branch Influenza Virus Unknown Completed Universit y of Vaccine Recomb Quad [facility] IM, Preserv and ABX Branc h Free 18-64 YRS TD, NOS Unknown Completed [facility] TDAP Unknown Completed [facility] Influenza Virus Unknown Completed Universit y of Vaccine Quad .5 mL [facility] IM 6+ MO Branch (FLUZONE/FLULAVAL/F LUARIX) Influenza Virus Unknown Completed Universit y of Vaccine Quad .5 mL [facility] IM 6+ MO Branch (FLUZONE/FLULAVAL/F LUARIX) SARS-COV-2 COVID-19 Unknown Completed Unive rsity of MODERNA 12+ YRS [place] [facility] VACCINE Branch SARS-COV-2 COVID-19 Unknown Completed Unive rsity of MODERNA 12+ [facility] [facility] VACCINE Branch Influenza Virus Unknown Completed Universit y of Vaccine Recomb Quad [facility] IM, Preserv and ABX Branc h Free 18-64 YRS Vital Signs Vital Name Observation Time Observation Value Comments Source Systolic blood 2023-02-17 19:18:00 112 mm[Hg] Univer sity of pressure [facility] Branch Diastolic blood 2023-02-17 19:18:00 51 mm[Hg] Unive rsity of pressure [facility] Heart rate 2023-02-17 19:18:00 87 /min Universi ty of [facility] Respiratory rate 2023-02-17 19:18:00 18 /min Univ ersity of [facility] Body height 2023-02-17 19:18:00 188 cm Universi ty of [place] [facility] [place] Body weight 2023-02-17 19:18:00 82.056 kg Universi ty [facility] [place] [facility] [place] BMI 2023-02-17 19:18:00 23.23 kg/m2 Universi ty of [place] [facility] [place] Oxygen saturation in 2023-02-17 19:18:00 100 /min University of Arterial blood by [facility] Pulse oximetry Branch Systolic blood 2023-02-10 21:09:00 116 mm[Hg] Univer sity of pressure [facility] [place] Diastolic blood 2023-02-10 21:09:00 68 mm[Hg] Unive rsity of pressure [facility] [place] Heart rate 2023-02-10 21:09:00 98 /min Universi ty [facility] Body temperature 2023-02-10 21:09:00 36.72 Alysa Univ ersity of [facility] Respiratory rate 2023-02-10 21:09:00 16 /min Univ ersity of [facility] Oxygen saturation in 2023-02-10 21:09:00 100 /min University of Arterial blood by [facility] Pulse oximetry Branch Body height 2023-02-10 19:20:00 188 cm [facility]i ty [facility] Body weight 2023-02-10 19:20:00 83.507 kg [facility]i ty [facility] BMI 2023-02-10 19:20:00 23.64 kg/m2 [facility] Systolic blood 2023-01-21 16:39:00 110 mm[Hg] Univer sity of pressure [facility] Diastolic blood 2023-01-21 16:39:00 73 mm[Hg] Unive rsity of pressure [facility] Heart rate 2023-01-21 16:39:00 96 /min Universi ty [facility] Body height 2023-01-21 16:39:00 188 cm [facility] Body weight 2023-01-21 16:39:00 91.173 kg [facility] BMI 2023-01-21 16:39:00 25.81 kg/m2 [facility] Oxygen saturation in 2023-01-21 16:39:00 99 /min University of Arterial blood by [facility] Pulse oximetry Branch Systolic blood 2023-01-12 17:41:00 108 mm[Hg] Univer sity of pressure [facility] Diastolic blood 2023-01-12 17:41:00 57 mm[Hg] Unive rsity of pressure [facility] Heart rate 2023-01-12 17:41:00 81 /min Universi ty [facility] Body temperature 2023-01-12 17:41:00 36.67 Alysa Univ ersity of [facility] Branch Respiratory rate 2023-01-12 17:41:00 18 /min Univ ersity of [facility] Body height 2023-01-12 17:41:00 188 cm [facility]i ty [facility] Body weight 2023-01-12 17:41:00 94.348 kg [facility] BMI 2023-01-12 17:41:00 26.71 kg/m2 [facility] Systolic blood 2022-11-24 19:49:00 108 mm[Hg] Univer sity of pressure [facility] Diastolic blood 2022-11-24 19:49:00 74 mm[Hg] Unive rsity of pressure [facility] Heart rate 2022-11-24 19:48:00 90 /min Universi ty [facility] Body height 2022-11-24 19:48:00 188 cm [facility]i [facility] Body weight 2022-11-24 19:48:00 103.193 kg [facility] BMI 2022-11-24 19:48:00 29.21 kg/m2 [facility] Oxygen saturation in 2022-11-24 19:48:00 97 /min University [facility] blood by [place] [facility] Pulse oximetry Branch Systolic blood 2022-09-08 20:43:00 128 mm[Hg] Univer sity of pressure [facility] Diastolic blood 2022-09-08 20:43:00 78 mm[Hg] Unive rsity of pressure [facility] Heart rate 2022-09-08 20:43:00 81 /min Universi ty [facility] Body temperature 2022-09-08 20:43:00 36.72 Alysa Univ ersity of [facility] Respiratory rate 2022-09-08 20:43:00 16 /min Univ ersity of [facility] Body weight 2022-09-08 20:43:00 105.688 kg [facility] BMI 2022-09-08 20:43:00 29.92 kg/m2 [facility] [place] [facility] Oxygen saturation in 2022-09-08 20:43:00 99 /min University of Arterial blood by [facility] Pulse oximetry Branch Systolic blood 2022-08-21 14:07:00 106 mm[Hg] Univer sity of pressure [facility] Diastolic blood 2022-08-21 14:07:00 68 mm[Hg] Unive rsity of pressure [facility] Heart rate 2022-08-21 14:07:00 77 /min [facility] Body temperature 2022-08-21 14:07:00 36.44 Alysa Univ ersity [facility] Body height 2022-08-21 14:07:00 188 cm [facility] Body weight 2022-08-21 14:07:00 105.688 kg [facility] [place] [facility] BMI 2022-08-21 14:07:00 29.92 kg/m2 [facility] [place] [facility] Oxygen saturation in 2022-08-21 14:07:00 100 /min University of Arterial blood by [facility] cornelius Pulse oximetry Branch Systolic blood 2022-07-24 15:49:00 109 mm[Hg] Univer sity of pressure [facility] Diastolic blood 2022-07-24 15:49:00 60 mm[Hg] Unive rsity of pressure [facility] Heart rate 2022-07-24 15:49:00 91 /min [facility] Body temperature 2022-07-24 15:49:00 36.44 Alysa Univ [facility] [place] [facility] Respiratory rate 2022-07-24 15:49:00 18 /min Univ ersity of [facility] Body height 2022-07-24 15:49:00 188 cm [facility] Body weight 2022-07-24 15:49:00 106.913 kg [facility] BMI 2022-07-24 15:49:00 30.26 kg/m2 [facility] Oxygen saturation in 2022-07-24 15:49:00 99 /min University of Arterial blood by [employer] cornelius Pulse oximetry Branch Systolic blood 2022-07-01 17:11:00 120 mm[Hg] Univer sity of pressure [facility] Diastolic blood 2022-07-01 17:11:00 81 mm[Hg] Unive rsity of pressure [facility] Heart rate 2022-07-01 17:11:00 110 /min [facility]i ty [facility] Body temperature 2022-07-01 17:11:00 36.67 Alysa Univ ersity of [facility] Respiratory rate 2022-07-01 17:11:00 20 /min Univ ersity of [facility] Body height 2022-07-01 17:11:00 188 cm [facility] Body weight 2022-07-01 17:11:00 103.375 kg [facility] BMI 2022-07-01 17:11:00 29.26 kg/m2 [facility] Oxygen saturation in 2022-07-01 17:11:00 100 /min University of Arterial blood by [employer] cornelius Pulse oximetry Branch Systolic blood 2021-11-27 14:35:00 110 mm[Hg] Univer sity of pressure [facility] Diastolic blood 2021-11-27 14:35:00 75 mm[Hg] Unive rsity of pressure [facility] Heart rate 2021-11-27 14:35:00 71 /min [facility] Body temperature 2021-11-27 14:35:00 37.11 Alysa [facility] Body height 2021-11-27 14:35:00 188 cm [facility] Medical [place] Body weight 2021-11-27 14:35:00 111.585 kg [facility] BMI 2021-11-27 14:35:00 31.58 kg/m2 [facility] Procedures Procedure Date / Time Performed Performing Clinician Sourc e FL BARIUM SWALLOW 2023-02-11 16:08:21 Lorena Fisher [facility] ESOPHAGUS [facility] HEAD WO CONTRAST 2023-02-10 20:09:00 Adonis Fonseca [facility] ASSIGNMENT OF BENEFITS 2023-02-10 19:54:42 Doctor Unassigned, No [facility] CONSENT/REFUSAL FOR 2023-02-10 19:12:57 Doctor Unassigned, No [facility] Name Medical Branch TREATMENT POCT URINALYSIS W/O 2023-01-12 17:49:00 [place] Goodrich [facility] SPECIFIC GRAVITY Medical [facility] CT ABDOMEN PELVIS W 2022-08-15 16:40:07 Lorena Fisher [facility] CONTRAST [facility] HB CREATININE 2022-08-15 16:25:00 Lorena Fisher [facility] SERUM/BLOOD FOR Medical [place] IMAGING NOTICE OF PRIVACY 2022-08-15 15:53:39 Doctor Unassigned, No [facility] PRACTICES Name Medical Branch CONSENT/REFUSAL FOR 2022-08-15 15:53:14 [facility] Branch TREATMENT ASSIGNMENT OF BENEFITS 2022-08-15 15:52:49 Doctor Unassigned, No [facility] GC & CHLAMYDIA 2022-07-24 16:24:00 Meliza, [facility] [place] AMPLIFIED ASSAY Susan Chirinos [facility] GALV ONLY - VAGINAL 2022-07-24 16:24:00 Meliza [facility] PATHOGENS BY NUCLEIC Susan Chirinos [facility] ACID TESTING HSV 1&2, VZV NAAT 2022-07-24 16:24:[facility] PATIENT FINANCIAL 2022-07-24 15:39:32 Doctor Unassigned, No [facility] POLICY Name [facility] POCT URINALYSIS 2022-07-01 17:50:00 [facility]URE 2022-07-01 17:45:00 [facility] GALV ONLY - VAGINAL 2022-07-01 17:45:00 Meliza [facility] PATHOGENS BY NUCLEIC [facility] ACID TESTING ASSIGNMENT OF BENEFITS 2022-07-01 17:02:49 Doctor Unassigned, No [facility] Name [facility] DISCLOSURE AND 2021-11-27 05:01:00 Doctor Unassigned, No [facility] CONSENT, MEDICAL AND Name [facility] SURGICAL PROCEDURES POCT TEST 2021-11-27 00:00:00 Rabia Sanchez [facility] Encounters Start End Encounter Admission Attending Care Care Encounter Source Date/Time Date/Time Type Type Clinicians Facility Department ID 2021-03-17 Emergency [facility] [id number] Univers 07:42:49 ity of [facility] 2021-03-16 Emergency [facility] [id number] Univers 05:35:26 ity of [facility] 2021-03-15 Emergency [facility] [id number] Univers 07:15:04 ity of [facility] 2023-03-09 2023-03-09 Outpatient R [facility] [id number] Univers 09:00:00 09:00:00 ity of [facility] 2023-02-27 2023-02-27 Outpatient R [facility] [id number] Univers 10:59:13 23:59:00 , SUSAN it y of [facility] 2023-02-27 2023-02-27 [facility] 1.2.840.114 [id number] Univers 10:45:00 23:59:00 Encounter , Susan INMAN [id number] ity of [place] 4.2.7.2.686 [place] [facility] [id number] [facility] 80 Branch 2023-02-20 2023-02-20 Nurse Mannie Shell, JESS 1.2.840.114 [id number] Univers 00:00:00 00:00:00 Triage Jaclyn HARPER [id number] ity of HOSPITAL 4.2.7.2.686 [place] as [id number] [address] 2023-02-17 2023-02-17 Mail Reader Lab, [facility] 1.2.840.1 [id number] Univers 15:30:00 15:45:00 Visit Susan Haider [facility] 350.1 .13.10 ity of [place] 4.2.7.2.686 Vaibhav as APRIL?BLEA [id number] [facility] [address] [place] MEDICAL OFFICE BUILDING 2023-02-17 2023-02-17 Outpatient R MELIZA [facility] [id number] Univers 14:00:00 15:13:04 , SUSAN it y of [facility] 2023-02-17 2023-02-[address] [facility] 1.2.840.114 [id number] Univers 14:00:00 15:13:04 Visit , Susan GROSS 350.1.13.10 ity of [place] 4.2.7.2.686 Vaibhav as APRIL?BLEA [id number] [address] MEDICAL OFFICE BUILDING 2023-02-13 2023-02-[address] [facility] 1.2.840.114 [id number] Univers 00:00:00 00:00:00 , Susan GROSS 350.1.13.10 ity of [place] 4.2.7.2.686 Vaibhav as APRIL?BLEA [id number] [address] MEDICAL OFFICE BUILDING 2023-02-11 2023-02-11 Outpatient R [facility] [id number] Univers 09:57:31 23:59:00 LORENA ity [facility] 2023-02-11 2023-02-11 [facility] 1.2.840.114 [id number] Univers 09:57:31 23:59:00 Encounter Lorena [place] IN[place] 350.1.13.10 ity [place] [id number] [facility] [address] [place] 2023-02-10 2023-02-10 Emergency X SINGER AZLEONEL ERT [id number] Univers 14:24:00 16:12:00 ADONIS vila of [facility] 2023-02-10 2023-02-10 Emergency Singer [facility] 1.2.618.000 [id number] Univers 14:24:00 16:12:00 Adonis INMAN 350.1.13.10 i ty of [place] [id number] [facility] [address] [place] 2023-02-10 2023-02-10 Telephone Meliza [facility] 1.2.840.114 [id number] Univers 00:00:00 00:00:00 , Susan [facility] 350.1.13.10 ity of [place] [facility] 4.2.7.2.686 Vaibhav as APRIL?BLEA [id number] Id sarahmarco a [facility] [address] [place] MEDICAL OFFICE [facility] 2023-01-21 2023-01-21 Mail Reader Lab, [facility] 1.2.840.1 [id number] Univers 12:00:00 12:00:00 Visit Sammi Foster 350.1.13.10 it[facility] 4.2.7.2.686 Vaibhav as APRIL?BLEA [phone] Id sarahmarco a [facility] [address] [place] MEDICAL OFFICE BUILDING 2023-01-21 2023-01-21 Outpatient R KRISTIN [facility] [id number] Univers 12:00:00 11:59:55 SAMMI vila [facility] 2023-01-21 2023-01-21 Office Kristin [facility] 1.2.840.114 [id number] Univers 11:30:00 11:49:12 Visit Sammi [facility] 350.1.13.10 it y of [facility] 4.2.7.2.686 Vaibhav as APRIL?BLEA [id number] Id asrah[address] MEDICAL OFFICE [facility] 2023-01-20 2023-01-20 Outpatient R MELIZA [facility] [id number] Univers 14:40:00 14:40:00 , SUSAN it y of [facility] 2023-01-14 2023-01-14 Case Kp [facility] [id number] Univers 00:00:00 00:00:00 Management [place] GROSS 350.1.13.10 ity of [place] 4.2.7.2.686 Vaibhav as APRIL?BLEA [id number] [facility] [address] [place] MEDICAL OFFICE [facility] 2023-01-14 2023-01-14 Patient Doctor [facility] 1.2.840.114 [id number] Univers 00:00:00 00:00:00 Secure Msg Unassigned, HENNY 350.1.13.10 ity of [place] [id number] [address] 2023-01-12 2023-01-12 Outpatient R KP [facility] [id number] Univers 13:00:00 13:24:43 TYLER vila [facility] 2023-01-12 2023-01-12 [facility] [id number] Univers 13:00:00 13:24:43 Visit Tylerquang INMAN 350.1.13.10 i ty [place] [id number] [address] 2022-12-09 2022-12-09 Outpatient R KRISTIN [facility] [id number] Univers 11:30:00 11:30:00 SAMMI villanuevay of [facility] 2022-12-03 2022-12-03 Refill Meliza [facility] 1.2.840.114 [id number] Univers 00:00:00 00:00:00 , Susan GROSS 350.1.13.10 ity of [place] 4.2.7.2.686 Vaibhav as APRIL?BLEA [id number] Id reid DALEY 044 [facility] OFFICE [facility] 2022-11-24 2022-11-24 Outpatient R KRISTIN [facility] [id number] Univers 14:30:00 15:02:34 SAMMI ity of [facility] 2022-11-24 2022-11-24 Office Kristin [facility] 1.2.840.114 [id number] Univers 14:30:00 15:02:34 Visit Sammi [facility] 350.1.13.10 it y of [place] 4.2.7.2.686 Vaibhav as APRIL?BLEA [id number] [facility] [address] [place] MEDICAL OFFICE BUILDING 2022-10-15 2022-10-15 Refeulalia Haider [facility] 1.2.840.114 [id number] Univers 00:00:00 00:00:00 , [facility] 350.1.13.10 ity of [place] 4.2.7.2.686 Vaibhav as APRIL?BLEA [id number] [address] MEDICAL OFFICE BUILDING 2022-10-15 2022-10-15 Refill Silas Martins 1.2.840.114 [id number] Univers 00:00:00 00:00:00 Y PEDIATRIC 350.1.13.10 [place] [id number] [place] [address] Branch [facility]ARE [facility]IC 2022-09-08 2022-09-08 Urgent Adair Hope [facility] ..840.11 [id number] Univers 15:40:00 16:00:00 Care Unknown, Attending HEALTH 350.1.13.10 ity of [place] 4.2.7.2.686 Vaibhav as APRIL?BLEA [id number] [facility] [address] [place] MEDICAL OFFICE BUILDING 2022-09-08 2022-09-08 Outpatient R HERMINIA AZLEONEL [facility] [id number] Univers 15:40:00 15:40:00 ADAIR vila [facility] 2022-08-21 2022-08-21 Office [place] [facility] 1.2.840.114 [id number] Univers 09:40:00 09:40:00 Visit Alana [facility] 350.1.13.10 ity of [place] 4.2.7.2.686 Vaibhav as APRIL?BLEA [id number] [address] MEDICAL OFFICE BUILDING 2022-08-21 2022-08-21 Outpatient R MELIZA [facility] [id number] Univers 09:30:00 09:30:00 , SUSAN it y of [facility] 2022-08-21 2022-08-21 Outpatient R ALANA FRANCO [facility] [id number] Univers 09:40:00 09:25:29 ALANA FRANCO ity [facility] 2022-08-15 2022-08-15 Outpatient R NAOMI [facility] [id number] Univers 10:53:47 23:59:00 LORENA ity [facility] 2022-08-15 2022-08-15 [facility] 1.2.840.114 [id number] Univers 10:50:00 23:59:[address] [facility] 350.1.13.10 ity [facility] 4.2.7.2.686 [place] [facility] [id number] [address] 2022-08-05 2022-08-05 Outpatient R [facility] [id number] Univers 11:00:00 11:00:00 , SUSAN it y of [facility] 2022-07-28 2022-07-28 [facility] 1.2.840.114 [id number] [facility] 00:00:00 00:00:00 , Susan [employer] 350.1.13.[address] [facility] 4.2.7.2.686 Vaibhav as APRIL?BLEA [id number] [address] MEDICAL OFFICE [facility] 2022-07-24 2022-07-24 Outpatient R [facility] [id number] Univers 09:45:00 10:29:18 , SUSAN it y of [facility] 2022-07-24 2022-07-[address] [facility] 1.2.840.114 [id number] Univers 09:45:00 10:29:18 Visit , Susan HEALTH 350.1.13.[address] [facility] 4.2.7.2.686 Vaibhav as APRIL?BLEA [id number] [address] MEDICAL OFFICE [facility] 2022-07-24 2022-07-24 Orders Doctor MERCADO 1.2.840.114 [id number] Univers 00:00:00 00:00:00 Only Unassigned, LEROY 350.1.13.10 ity of [place] [facility] 4.2.7.2.686 Vaibhav as [id number] [address] 2022-07-16 2022-07-[address] [facility] 1.2.840.114 [id number] Univers 00:00:00 00:00:00 [facility] 350.1.13.10 ity of [place] 4.2.7.2.686 Vaibhav as APRIL?BLEA [id number] [address] OFFICE [facility] 2022-07-03 2022-07-[address] [facility] 1.2.840.114 [id number] Univers 00:00:00 00:00:00 Management [facility] 350.1.13.10 ity of [place] 4.2.7.2.686 Vaibhav as APRIL?BLEA [id number] [address] OFFICE [facility] 2022-07-01 2022-07-01 Outpatient R [facility] [id number] Univers 11:15:00 11:41:57 , SUSAN it y of [facility] 2022-07-01 2022-07-[address] [facility] 1.2.840.114 [id number] Univers 11:15:00 11:41:57 [facility] 350.1.13.10 ity of [place] 4.2.7.2.686 Vaibhav as APRIL?BLEA [id number] [address] MEDICAL OFFICE [facility] [facility] 2022-07-01 2022-07-01 Orders Doctor MERCADO 1.2.840.114 [id number] Univers 00:00:00 00:00:00 Only Unassigned, LEROY 350.1.13.10 ity of [place] [facility] 4.2.7.2.686 Vaibhav as [phone] [address] 2022-06-25 2022-06-25 Outpatient R [facility] [id number] Univers 11:00:00 11:00:00 , DUNG ity [facility] 2022-06-24 2022-06-24 RefSilas Dodge 1.2.840.114 [id number] Univers 00:00:00 00:00:00 Y PEDIATRIC 350.1.13.10 [place] [id number] [facility] PRIMARY [address] CARE CL[facility]IC 2022-06-19 2022-06-19 Outpatient R SILAS MARTINS [facility] [id number] Univers 14:30:00 14:30:00 ity [facility] 2022-06-05 2022-06-05 Outpatient R KP [facility] [id number] Univers 10:30:00 10:30:00 TYLER [facility] 2022-06-03 2022-06-03 LEILA Simmons 1.2.840.114 [id number] Univers 00:00:00 00:00:00 Management Stefaniecarlos eduardo KAYY 350.1.13.10 [place] [id number] [place] 40[address]86 [place] 2022-03-20 2022-03-20 Outpatient R MELIZA [facility] [id number] Univers 11:00:00 11:00:00 , SUSAN it y of [facility] 2021-11-27 2021-11-27 Office Rabia Sanchez [facility] 1.2.458.903 [id number] Univers 09:15:00 10:42:35 Visit Oleg INMAN 350.1.13.10 i ty of [place] [id number] Id dical [address] 2021-11-27 2021-11-27 Outpatient R RABIA SANCHEZ [facility] [id number] Univers 09:15:00 10:42:35 ity [facility] 2021-11-27 2021-11-27 Outpatient R RABIA SANCHEZ [facility] [id number] Univers 09:15:00 09:15:00 ity [facility] 2021-11-27 2021-11-27 Outpatient R RABIA SANCHEZ [facility] [id number] Univers 09:15:00 09:15:00 ity of [facility] 2021-11-27 2021-11-27 Orders Doctor JESS 1.2.840.114 [id number] Univers 00:00:00 00:00:00 Only Unassigned, LEROY 350.1.13.10 [facility] 4.2.7.2.686 Vaibhav as [phone] [address] 2021-11-20 2021-11-20 Outpatient R KP [facility] [id number] Univers 10:45:00 11:09:12 TYLER vila [facility] 2021-11-20 2021-11-20 Office Kp [facility] 1.2.509.170 [id number] Univers 10:45:00 11:09:12 Visit Tyler INMAN 350.1.13.10 i ty of [place] [phone] Id dical NAL [address] [facility] 2021-11-04 2021-11-04 Case Kp [facility] 1.2.620.335 [id number] Univers 00:00:00 00:00:00 Management Tyler INMAN 350.1.13.10 [facility] [place] [id number] Id dical NAL 134 [facility] 2021-10-31 2021-10-31 Mail Reader Tj, Adriana Lab Main [facility] 1.2.8 40.114 [id number] Univers 12:00:00 12:15:00 Visit Tyler Goodrich 350.1.13.10 it[facility] 4.2.7.2.[place] [id number] Id dical NAL 353 [facility] 2021-10-31 2021-10-31 Outpatient R KP [facility] [id number] Univers 10:15:00 11:15:11 TYLER vila [facility] 2021-10-31 2021-10-31 Office Kp [facility] 1.2.804.216 [id number] Univers 10:15:00 11:15:11 Visit Tyler INMAN 350.1.13.10 i ty [facility] 4.2.7.2.[place] [id number] [address] 2021-10-31 2021-10-31 Outpatient R KP [facility] [id number] Univers 10:15:00 11:15:11 TYLER [facility] 2021-10-24 2021-10-24 Outpatient R KP [facility] [id number] Univers 11:15:00 [facility]:15[facility] 2021-10-08 2021-10-08 Outpatient R SANTOSH [facility] [id number] Univers 09:30:00 09:30:00 MINE [facility] 2021-09-18 2021-09-18 Telephone Silas Martins 1.2.840.114 [id number] Univers 00:00:00 00:00:00 Y PEDIATRIC 350.1.13.10 [place] [phone] [address] 2021-09-17 2021-09-17 Office Silas Martins 1.2.840.114 [id number] Univers 13:15:00 13:48:45 Visit Y PEDIATRIC 350.1.13.10 [place] [id number] [address] 2021-09-17 2021-09-17 Outpatient SILAS GUEVARA [facility] [id number] [id number] Univers 13:15:00 13:48:45 ity [facility] 2021-09-17 2021-09-17 Outpatient SILAS GUEVARA [facility] [id number] [id number] Univers 13:15:00 13:15:00 ity [facility] 2021-09-08 2021-09-08 Deya GLORIA 1.2.840.114 [id number] Univers 00:00:00 00:00:00 , Susan PEDIATRIC 350.1.13.10 it[place] of [place] [id number] [facility] PRIMARY [address] CARE CL[facility]IC 2021-08-26 2021-08-26 Outpatient Maia ROLAND [facility] [id number] Univers 08:45:00 08:45:00 ELOY ity [facility] 2021-08-14 2021-08-14 Patient Doctor UNIVERSIT 1.2.077.840 [id number] Univers 00:00:00 00:00:00 Secure Msg Unassigned, HEALTH 350.1.13.10 ity of [place] [facility] [place]2.7.2.[place] [id number] [facility] [address] [place] 2021-08-08 2021-08-08 [facility]phone [facility] 1.2.840.114 [id number] Univers 00:00:00 00:00:00 Alan SPECIALTY 350.1.13.10 ity of [facility] [place]2.7.2.[place] C[place] AT [phone] Id reid BOYER 198 [facility] 2021-07-30 2021-07-30 Outpatient Maia [facility] [id number] Univers 00:00:00 00:00:00 ALAN vila [facility] 2021-07-16 2021-07-16 Outpatient Maai [facility] [id number] Univers 16:51:18 23:59:00 ALAN vila [facility] 2021-07-16 2021-07-16 [facility] 1.2.867.240 [id number] Univers 16:51:18 23:59:00 Encounter Alan SPECIALTY 350.1.13.10 ity of [facility] [place]2.7.2.[place] C[place] AT [phone] Id reid BOYER 809 [facility] 2021-07-16 2021-07-16 Office [facility] 1.2.840.114 [id number] Univers 15:50:00 16:00:00 Visit Alan SPECIALTY 350.1.13.10 [facility] [place] AT [phone] Id reid Ervin [place] 2021-07-16 2021-07-16 Outpatient R AMAYA [facility] [id number] Univers 15:50:00 15:50:00 ALAN ity [facility] 2021-05-28 2021-05-28 Outpatient R SANTOSH [facility] [id number] Univers 15:30:00 15:30:00 MINE vila [facility] 2021-05-21 2021-05-21 Outpatient R MELIZA [facility] [id number] Univers 11:00:00 11:00:00 , SUSAN locke [facility] 2021-04-18 2021-04-18 Outpatient R MELIZA [facility] [id number] Univers 11:15:00 11:57:00 , SUSAN locke [facility] 2021-04-18 2021-04-18 Office Meliza GLORIA 1.2.840.114 [id number] Univers 11:09:27 11:57:00 Visit , Susan PEDIATRIC 350.1.13.10 it[place] of [place] [id number] [facility] PRIMARY [address] CARE CLINIC 2021-04-18 2021-04-18 Outpatient R MELIZA [facility] [id number] Univers 11:15:00 11:15:00 , SUSAN locke [facility] 2021-04-18 2021-04-18 Orders Doctor MERCADO 1.2.840.114 [id number] Univers 00:00:00 00:00:00 Only Unassigned, LEROY 350.1.13.10 ity of [place] [facility] 4.2.7.2.686 Vaibhav as [id number] [place] [address] [address] 2021-02-01 2021-02-01 Outpatient R MELIZA [facility] [id number] Univers 16:00:00 16:00:00 , SUSAN locke [facility] 2020-11-29 2020-11-29 Refill Meliza Gloria 1.2.840.114 [id number] Univers 00:00:00 00:00:00 , Susan Pediatric 350.1.13.10 ity of [place] [id number] [address] 2020-11-29 2020-11-29 Refill Meliza Ratliffin 1.2.840.114 [id number] 00:00:00 00:00:00 , Susan Pediatric 350.1.13.10 M s and 4.2.7.2.686 Adult [id number] [address] 2020-11-16 2020-11-16 Refill Meliza Faizan 1.2.840.114 [id number] [facility] 00:00:00 00:00:00 , Susan Pediatric 350.1.13.10 ity of [place] and [place] [id number] [address] 2020-11-16 2020-11-16 Refill Meliza Ratliffin 1.2.840.114 85 [id number] 00:00:00 00:00:00 , Susan Pediatric 350.1.13.10 M s and 4.2.7.2.686 Adult [phone] [address] 2020-11-15 2020-11-15 Office Faizan Morris 1.2.840.114 [id number] Univers 11:30:23 12:00:23 Visit Arcelia Pediatric 350.1.13.10 ity of [place] [id number] [address] 2020-11-15 2020-11-15 Office Faizan Morris 1.2.840.114 [id number] 11:30:23 12:00:23 Visit Arcelia Pediatric 350.1.13.10 s and 4.2.7.2.686 Adult [id number] [address] 2020-11-15 2020-11-15 Outpatient Maia MORRIS [facility] [id number] Univers 12:00:00 12:00:00 ARCELIA vila of [facility] 2020-11-14 2020-11-14 Telephone Kerry Collins 1.2.840.114 [id number] Univers 00:00:00 00:00:00 Ali Pediatric 350.1.13.10 ity of [place] [id number] [address] 2020-11-13 2020-11-13 Patient [place] Faizan 1.2.840.114 [id number] Univers 00:00:00 00:00:00 Secure Msg , Susan Pediatric 350.1.13.10 ity of [place] [id number] [address] 2020-11-13 2020-11-13 Patient [place] Faizan 1.2.840.114 [id number] Univers 00:00:00 00:00:00 Secure g , Susan Pediatric 350.1.13.10 ity of [place] and [place] [id number] [address] 2020-11-13 2020-11-13 Patient [place] Faizan 1.2.840.114 [id number] 00:00:00 00:00:00 Secure g , Susan Pediatric 350.1.13.10 M s and 4.2.7.2.686 Adult [id number] [address] 2020-11-08 2020-11-08 Office Meliza Gloria 1.2.840.114 [id number] Univers 11:09:23 12:22:47 Visit , Susan Pediatric 350.1.13.10 ity of [place] and [place]2.[place] [id number] [address] 2020-11-08 2020-11-08 Outpatient R MELIZA [facility] [id number] Univers 11:00:00 11:00:00 , SUSAN villanueva y of [facility] 2020-11-02 2020-11-02 Telephone Meliza Gloria 1.2.840.114 [id number] Univers 00:00:00 00:00:00 , Susan Pediatric 350.1.13.10 ity of [place].2.[place] [phone] [facility] [address] Care [facility] 2020-10-31 2020-10-31 Outpatient R NAOMI [facility] [id number] Univers 00:00:00 00:00:00 LORENA ity of [facility] 2020-10-25 2020-10-25 Office Meliza Gloria 1.2.840.114 [id number] Univers 11:05:46 12:04:53 Visit , Susan Pediatric 350.1.13.10 ity of [place] and [place].2.[place] [id number] [facility] 314 [facility] 2020-10-25 2020-10-25 Outpatient R [facility] [id number] Univers 11:00:00 11:00:00 , SUSAN villanueva y of [facility] 2020-10-23 2020-10-23 Outpatient R [facility] [id number] Univers 16:15:00 16:15:00 , SUSAN villanueva y of [facility] 2020-08-28 2020-08-28 Outpatient R [facility] [id number] Univers 15:45:00 15:45:00 , SUSAN it y of [facility] 2020-08-06 2020-08-06 Emergency [facility] 1.2.613.328 [id number] Univers 20:28:00 23:01:00 Rebeca Inman 350.1.13.10 ity of [place]2.[place] [phone] [facility] [address] 2020-08-06 2020-08-06 Patient Jamie [facility] 1.2.840.114 [id number] Univers 00:00:00 00:00:00 Outreach Yves PRIMARY 350.1.13.10 i ty of [facility] [place]2.7.2.[place] [phone] Id dical [address] 2020-07-06 2020-07-06 Outpatient R [facility] [id number] Univers 14:00:00 14:00:00 ity of [facility] 2020-07-02 2020-07-02 Outpatient R [facility] [id number] Univers 08:00:00 08:00:00 ity of [facility] 2020-06-15 2020-06-15 Patient Kerry Collins [facility] 1.2.840.114 [id number] Univers 00:00:00 00:00:00 Secure Msg Rebeca FRIENDSWO 350.1.13.10 ity of [place]2.7.2.686 [place] PEDIATRIC [phone] Id dical AND ADULT [facility] 2020-06-11 2020-06-11 Telephone Kerry Collins 1.2.840.114 [id number] Univers 00:00:00 00:00:00 Ali Pediatric 350.1.13.10 ity of [place] and [place].7.2.[place] [id number] [place] [address] [address] [facility] 2020-06-08 2020-06-08 Office Meliza Gloria 1.2.840.114 [id number] Univers 14:45:00 15:00:00 Visit , Susan Pediatric 350.1.13.10 ity of [place] and [place].2.[place] [id number] [address] 2020-06-08 2020-06-08 Outpatient R MELIZA [facility] [id number] Univers 14:45:00 14:45:00 , SUSAN it y of [facility] 2020-06-08 2020-06-08 Outpatient R COLLINSKERRY VIZCARRA [facility] [id number] Univers 14:40:00 14:40:00 ity of [facility] 2020-06-08 2020-06-08 Nurse Nurse, Gaudencio Gloria 1.2.84 0.114 [id number] Univers 13:56:21 14:16:21 Visit Kerry Collins Pediatric 350.1.13.10 ity of [place] and [place].7.2.[place] [id number] [address] 2020-06-01 2020-06-01 Outpatient R MELIZA [facility] [id number] Univers 10:40:00 10:40:00 , SUSAN locke [facility] 2020-05-30 2020-05-30 Office Meliza Faizan 1.2.840.114 [id number] Univers 15:50:39 17:01:06 Visit , Susan Pediatric 350.1.13.10 ity of [place] and [place]2.7.2.[place] [id number] [address] 2020-05-30 2020-05-30 Outpatient R MELIZA [facility] [id number] Univers 16:00:00 16:00:00 , SUSAN locke [facility] 2020-05-25 2020-05-25 Kerry Butterfield 1.2.840.114 [id number] Univers 00:00:00 00:00:00 Ali Pediatric 350.1.13.10 ity of [place] and 4[place]2.7.2.[place] [id number] [address] 2020-05-25 2020-05-25 Kerry Butterfield 1.2.840.114 [id number] Univers 00:00:00 00:00:00 Ali Pediatric 350.1.13.10 ity of [place].2.[place] [id number] [address] 2020-04-16 2020-04-16 Telephone Kp [facility] 1.2.840.114 [id number] Univers 00:00:00 00:00:00 Tyler Inman 350.1.13.10 i ty of [place].2.[place] [phone] Id dical nal [address] [place] [address] 2020-04-10 2020-04-10 Nurse Nurse, [facility] 1.2.840.114 [id number] Univers 14:03:44 15:24:29 Visit Rabia Sanchez 350.1.13.10 ity of [place] 4[place].7.2.[place] Profess[place] [phone] Id dical nal 134 [facility] 2020-04-10 2020-04-10 Outpatient R [facility] [id number] Univers 14:30:00 14:30:00 ity of [facility] 2020-04-10 2020-04-10 Patient Adum, [facility] 1.2.840.114 [id number] Univers 00:00:00 00:00:00 Secure Msg Mine INMAN 350.1.13.10 [facility] 4.2.7.2.[place] [phone] Id dical NAL [address] [place] [address] 2020-04-09 2020-04-09 Telephone Adum, [facility] 1.2.480.007 [id number] Univers 00:00:00 00:00:00 Mine Inman 350.1.13.10 ity of [place] 4[place]2.7.2.[place] [phone] Id dical nal [address] [place] [address] 2020-04-06 2020-04-06 Outpatient R MELIZA [facility] [id number] Univers 11:45:00 11:45:00 , SUSAN it y of [facility] 2020-04-04 2020-04-04 Telephone Adum, [facility] 1.2.308.225 [id number] Univers 00:00:00 00:00:00 Mine Inman 350.1.13.10 ity of [place] 4[place].7.2.[place] [id number] Id dical nal [address] [place] [address] 2020-03-31 2020-03-31 Emergency [facility] 1.2.848.132 [id number] Univers 21:29:00 22:52:00 Bridget Inman 350.1.13.10 ity of [place] 4.2.7.2.686 [place] [phone] [facility] [address] [place] 2020-03-31 2020-03-31 Orders Doctor JESS 1.2.840.114 [id number] Univers 00:00:00 00:00:00 Only Unassigned, LEROY 350.1.13.10 ity of [place] [facility] 4.2.7.2.686 Vaibhav as [phone] [place] [address] [place] 2020-03-30 2020-03-30 Telephone Galileo, [facility] 1.2.751.796 [id number] Univers 00:00:00 00:00:00 Mine Inman 350.1.13.10 ity of [place] 4[place].7.2.[place] [id number] Id dic[address] 2020-03-30 2020-03-30 Kerry Butterfield 1.2.840.114 [id number] Univers 00:00:00 00:00:00 Ali Pediatric 350.1.13.10 ity of [place] and 4.2.7.2.[place] [phone] [facility] Primary [facility] 2020-03-28 2020-03-28 Nurse Nurse, [facility] 1.2.840.114 [id number] Univers 10:16:37 10:31:37 Visit Mine Sheth 350.1.13.10 ity of [place] 4[place]2.7.2.[place] [phone] Id dic[address] 2020-03-28 2020-03-28 Outpatient R [facility] [id number] Univers 10:30:00 10:30:00 ity of [facility] 2020-01-06 2020-01-06 Telephone [facility] 1.2.840.114 [id number] Univers 00:00:00 00:00:00 Tyler Inman 350.1.13.10 i ty of [place] 4[place]2.7.2.[place] [phone] Id dic[address] 2019-12-27 2019-12-[address] [facility], [facility] 1.2.348.432 [id number] Univers 00:00:00 00:00:00 Mine Inman 350.1.13.10 ity of [place] 4[place]2.7.2.[place] [phone] Id dic[address] 2019-12-26 2019-12-26 Outpatient R KPTHE [facility] [id number] Univers 11:15:00 11:15:00 TYLER ity of [facility] 2019-12-21 2019-12-21 Office Adum, [facility] 1.2.840.114 [id number] Univers 13:53:18 14:45:28 Visit Mine Carlos Inman 350.1.13.10 ity of [place] 4[place]2.7.2.[place] [phone] [address] 2019-12-21 2019-12-21 Outpatient R AD, [facility] [id number] Univers 13:30:00 13:30:00 MINE villanuevay [facility] 2019-12-21 2019-12-21 Orders Doctor JESS 1.2.840.114 [id number] Univers 00:00:00 00:00:00 Only Unassigned, LEROY 350.1.13.10 ity of [place] [facility] 4.2.7.2.686 Vaibhav as [phone] [address] 2019-12-13 2019-12-13 Patient Doctor [facility] 1.2.840.114 [id number] Univers 00:00:00 00:00:00 Secure Msg Unassigned, HENNY 350.1.13.10 ity of [place] 4[place].7.2.[place] [phone] [address] 2019-12-13 2019-12-13 [facility] 1.2.840.114 [id number] Univers 00:00:00 00:00:00 Tyler Inman 350.1.13.10 i ty of [place] 4[place]2.7.2.[place] [phone] Id dical [address] 2019-12-06 2019-12-06 Refill Doctor [facility] 1.2.840.114 [id number] Univers 00:00:00 00:00:00 Unassigned, Henny 350.1.13.10 ity of [place] 4.2.7.2.[place] [phone] [address] 2019-12-06 2019-12-06 Refill Doctor Faizan 1.2.840.114 [id number] Univers 00:00:00 00:00:00 Unassigned, Pediatric 350.1.13.10 it[place] of [place] and 4[place]2.7.2.[place] [phone] [address] 2019-12-06 2019-12-06 Refeulalia Gloria 1.2.840.114 [id number] Univers 00:00:00 00:00:00 Unassigned, Pediatric 350.1.13.10 ity of [place] and 4.2.7.2.[place] [phone] [address] 2019-12-03 2019-12-03 Refill Kerry Collins 1.2.840.114 [id number] Univers 00:00:00 00:00:00 Ali Pediatric 350.1.13.10 ity of [place] and 4.2.7.2.[place] [id number] [address] 2019-12-01 2019-12-01 Emergency [facility] 1.2.840.114 [id number] Univers 21:00:45 23:27:00 Gianni Inman 350.1.13.10 i ty of [place] 4.2.7.2.686 [place] [phone] [facility] [address] [place] 2019-12-01 2019-12-01 Orders Doctor MERCADO 1.2.840.114 [id number] Univers 00:00:00 00:00:00 Only Unassigned, LEROY 350.1.13.10 ity of [place] [facility] 4.2.7.2.686 Vaibhav as [phone] [facility] [address] 2019-11-23 2019-11-23 Outpatient Maia GOODRICH [facility] [id number] Univers 14:30:00 14:30:00 TYLER vila of [facility] 2019-11-01 2019-11-01 RefKerry Stokes 1.2.840.114 [id number] Univers 00:00:00 00:00:00 Ali Pediatric 350.1.13.10 ity of [place].2.[place] [id number] [address] 2019-10-05 2019-10-05 Refill Kerry Collins 1.2.840.114 [id number] Univers 00:00:00 00:00:00 Ali Pediatric 350.1.13.10 ity of [place] and [place]2.7.2.[place] [phone] [address] 2019-08-29 2019-09-01 Urgent MorrisArcelia 1.2.840.1 14 [id number] Univers 11:10:52 09:07:40 Care Unknown, Attending Pediatric 350.1.13. 10 ity of [place] and 4.2.7.2.[place] [phone] [facility] 370 [facility] 2019-09-01 2019-09-01 Patient Faizan Kumari 1.2.840.114 [id number] Univers 00:00:00 00:00:00 Secure Msg Michelle S Pediatric 350.1.13.10 ity of [place]2.[place].2.[place] [phone] [address] 2019-09-01 2019-09-01 Telephone Faizan Morris 1.2.840.114 [id number] Univers 00:00:00 00:00:00 Arcelia Pediatric 350.1.13.10 ity of [place] and 4.2.7.2.[place] [id number] [address] 2019-08-29 2019-08-29 Outpatient R UNKNOWN, [facility] [id number] Univers 11:00:00 11:00:00 ATTENDING ity of [facility] 2019-08-26 2019-08-26 Telephone Kerry Collins 1.2.840.114 [id number] Univers 00:00:00 00:00:00 Ali Pediatric 350.1.13.10 ity of [place] and [place]2.7.2.[place] [id number] [address] 2019-08-11 2019-08-11 Refill Kerry Collins 1.2.840.114 [id number] Univers 00:00:00 00:00:00 Ali Pediatric 350.1.13.10 ity of [place] and 4.2.7.2.[place] [id number] [facility] Primary 314 [facility] 2019-06-15 2019-06-15 RefKerry Stokes 1.2.840.114 [id number] Univers 00:00:00 00:00:00 Ali Pediatric 350.1.13.10 ity of [place] and [place] [phone] [facility] 314 [facility] 2019-05-13 2019-05-13 Patient Doctor [facility] 1.2.840.114 [id number] Univers 00:00:00 00:00:00 Secure Msg UnassHenny delong 350.1.13.10 ity of [place] [phone] Id reid [facility] 134 [facility] 2019-02-01 2019-02-01 Patient JESS Harris 1.2.840.114 [id number] Univers 00:00:00 00:00:00 Outreach Holly HARPER 350.1.13.10 ity of HOSPITAL 4.2.7.2.686 Vaibhav as [phone] [facility] [address] [place] 2019-01-06 2019-01-06 Office [facility] 1.2.501.742 [id number] Univers 11:22:10 11:52:10 Visit Cyrus Mcneil SPECIALTY 350.1.13.10 [place] [phone] Id dicmarco a BOYER 198 [facility] 2019-01-05 2019-01-05 Abstract Melissa [facility] 1.2.840.114 [id number] Univers 00:00:00 00:00:00 [place] SPECIALTY 350.1.13.10 ity of [place] [phone] Id dicmarco a BOYER [address] [place] [address] 2018-12-27 2018-12-27 Telephone Kp [facility] 1.2.840.114 [id number] Univers 00:00:00 00:00:00 Tyler Inman 350.1.13.10 i [place] [phone] [address] 2018-12-21 2018-12-21 Patient JESS Harris 1.2.840.114 [id number] Univers 00:00:00 00:00:00 Outreach Holly Nunez LEROY 350.1.13.10 ity of [facility] 4.2.7.2.686 [place] as [phone] [address] 2018-12-13 2018-12-13 Telephone [facility] 1.2.840.114 [id number] Univers 00:00:00 00:00:00 Tyler Inman 350.1.13.10 i [place] [phone] [address] 2018-12-10 2018-12-10 Telephone [facility] 1.2.840.114 [id number] Univers 00:00:00 00:00:00 Tyler Inman 350.1.13.10 i [place] [phone] [address] 2018-10-15 2018-10-15 Emergency E MCLAUGHLIN[facility] [id number] 15 [place] 02:31:00 03:40:00 [facility] 2018-10-01 2018-10-01 [facility] [id number] [place] 08:05:00 23:59:00 [facility] Results Test Description Test Time Test Comments [...] - Negative Lab Interpretation (test code = 38572-2) Abnormal [facility] URINALYSIS W/O SPECIFIC [id number] 17:49:00 Test Item Value Reference Range Interpretation [...] Negative Lab Interpretation (test code = Abnormal 75227-4) [facility] [id number] 21:45:20 Test Item Value Reference Range Interpretation Comments POCT Creatinine (test code = 0.9 mg/dL 0.5-1.7 [id number]) Lab Interpretation (test code = Normal 04454-5) [facility] URINALYSIS W SPECIFIC [id number] 17:52:00 Test Item Value Reference Range Interpretation Comments POCT U SP GRAV (test code = 1.025 mg/dl 1.005-1.025 5) POCT PH U (test code = 3254) [...] APPEAR (test code = clear 3267) [facility] URINALYSIS W SPECIFIC [id number] 17:52:00 Test Item Value Reference Range Interpretation [...] APPEAR (test code = clear 3267) [facility] URINALYSIS W SPECIFIC [id number] 17:52:00 Test Item Value Reference Range Interpretation [...] APPEAR (test code = clear 3267) [facility] URINALYSIS W SPECIFIC [id number] 17:52:00 Test Item Value Reference Range Interpretation [...] APPEAR (test code = clear 3267) [facility] [id number] 14:40:00 Test Item Value Reference Range Interpretation Comments POCT PREG (test code = 1605) Negative On board controls acceptable with C Yes Line (test code = 3574) POCT PREG LOT # (test code = 3575) POCT PREG TEST DATE (test code = 3576) [facility] [id number] 14:40:00 Test Item Value Reference Range Interpretation Comments POCT PREG (test code = 1605) Negative On board controls acceptable with C Yes Line (test code = 3574) POCT PREG LOT # (test code = 3575) POCT PREG TEST DATE (test code = 3576) [facility] ABDOMEN AND PELVIS WITH [id number] 08:51:45EXAM: CT ABDOMEN AND PELVIS WITH CONTRAST.LOCATION: D4.HISTORY: [id number]: Disorder of [id number]: Benign neoplasm of colon.COMPARISON:None.TECHNIQUE:CT abdomen and pelvis [...]
[2023-03-04] MEDS ORDERED: hydrOXYzine HCL 25 MG TAB ONE (23:07)
--- NOTE | 2023-03-04 23:46 | EDPHYS ---
Physician Documentation [facility] Name: Tg Quarles Age: 43 yrs Sex: Female : 1980 Arrival Date: 03/04/2023 Time: 22:29 Bed 3 Private MD: ED Physician Eduardo Layne HPI: 03/04 22:34 This 43 yrs old Female presents to ER via Unassigned with complaints of ec2 cough, anxiety. 22:34 Concern for URI symptoms symptoms as well as anxiety. Patient reports that she has been ec2 experiencing several days of cough and congestion, no significant shortness of breath. States that she does feel some anxiety and is on buspirone for this. Patient denies any leg swelling, denies any other concerns.. Historical: - Allergies: 22:42 Sulfa (Sulfonamide Antibiotics); bp 22:42 tramadol; bp - Home Meds: 22:42 omeprazole 20 mg Oral cpDR 1 cap once daily [Active]; metoprolol tartrate 12.5 Oral tab bp 1 tab once daily [Active]; Buspirone Oral [Active]; - PMHx: 22:42 Anemia; GERD; Hypertension; UTI; bp - PSHx: 22:42 Cholecystectomy; right shoulder; bp - Immunization history:: Adult Immunizations up to date. - Social history:: Smoking status: Patient reports the use of cigarette tobacco products, unknown amount Patient uses street drugs. ROS: 22:34 Constitutional: anxiety, uri ec2 Exam: 22:34 Constitutional: GEN: NAD Head: atraumatic Eyes: EOMI Ears: External ears are ec2 normal. CV: regular rate LUNGS: no respiratory distress ABD: non-distended SKIN: no evidence of rashes MSK: no evidence of trauma NEURO: moves all extremities equally, no wheezes, no rales, no rhonchi Vital Signs: 22:30 BP 116 / 53; Pulse 90; Resp 16; Temp 98.3; Pulse Ox 100% ; bp 23:38 BP 111 / 62; Pulse 66; Resp 13; Pulse Ox 97% ; bp MDM: 22:33 Patient medically screened. ec2 22:34 ED course: Patient arrives today due to concern for cough and cold symptoms with ec2 associated concern for anxiety. Examination remarkable for well-appearing nontoxic dividual who is in no acute distress with reassuring pulmonary exam and otherwise no respiratory distress, notable congestion on the HEENT examination. Will obtain EKG and chest x-ray for further complaints of the patient's URI signs symptoms and to evaluate for arrhythmia. We will also give the patient a dose of Atarax for her anxiety. . 22:55 ED course: EKG independently reviewed and interpreted by me, shows normal sinus rhythm, ec2 rate of 81, no acute ST segment elevations, nonconcerning intervals.. 23:44 ED course: Chest x-ray dependently reviewed and interpreted by me, shows no acute ec2 thoracic process. On reassessment patient is well-appearing in no acute distress. Presentation consistent with anxiety and viral URI. Will discharge home with prescription for Atarax and have her follow-up with her primary care doctor. Return precautions given.. 23:58 Data reviewed: vital signs. ec2 03/04 22:34 Order name: CXR XRAY ec2 03/04 22:34 Order name: EKG; Complete Time: 22:35 ec2 Administered Medications: 22:56 Drug: hydrOXYzine PO 50 mg PO once Route: PO; jw7 03/05 00:00 Follow up: Response: No adverse reaction; Marked relief of symptoms; Anxiety decreased lg3 Disposition Summary: 03/04/23 23:45 Discharge Ordered Notes: Location: Home ec2 Condition: Stable ec2 Diagnosis - Anxiety ec2 - Viral URI ec2 Discharge Instructions: - Discharge Summary Sheet ec2 - Viral Illness, Adult ec2 - Managing Anxiety, Adult ec2 Forms: - Medication Reconciliation Form ec2 - Thank You Letter ec2 - Antibiotic Education ec2 - Prescription Opioid Use ec2 - Patient Portal Instructions ec2 - Leadership Thank You Letter ec2 Prescriptions: - Hydroxyzine HCl 50 mg Oral Tablet - take 1 tablet ORAL route every 8 hours As needed; 20 tablet; Refills: 0, ec2 Product Selection Permitted Signatures: Dispatcher [employer] True Alvarez RN RN Maribel Alonzo RN RN jw7 Eduardo Layne MD MD ec2 Teri Rockwell RN lg3
--- NOTE | 2023-03-04 23:46 | ER ---
Nurse's Notes [facility] Name: Tg Quarles Age: 43 yrs Sex: Female : 1980 Arrival Date: 03/04/2023 Time: 22:29 Bed 3 Private MD: Diagnosis: Anxiety;Viral URI Presentation: 03/04 22:30 Chief complaint: EMS states: ANXIETY ATTACK, FREQUENT H/O SAME. Coronavirus screen: At bp this time, the client does not indicate any symptoms associated with coronavirus-19. Ebola Screen: No symptoms or risks identified at this time. Initial Sepsis Screen: Does the patient meet any 2 criteria? No. Patient's initial sepsis screen is negative. Does the patient have a suspected source of infection? No. Patient's initial sepsis screen is negative. Risk Assessment: Do you want to hurt yourself or someone else? Patient reports no desire to harm self or others. Onset of symptoms is unknown. 22:30 Method Of Arrival: EMS: [facility] bp 22:30 Acuity: JULIENNE 4 bp Triage Assessment: 22:30 General: Appears in no apparent distress. Behavior is cooperative, appropriate for age. bp Pain: Denies pain. Historical: - Allergies: 22:42 Sulfa (Sulfonamide Antibiotics); bp 22:42 tramadol; bp - Home Meds: 22:42 omeprazole 20 mg Oral cpDR 1 cap once daily [Active]; metoprolol tartrate 12.5 Oral tab bp 1 tab once daily [Active]; Buspirone Oral [Active]; - PMHx: 22:42 Anemia; GERD; Hypertension; UTI; bp - PSHx: 22:42 Cholecystectomy; right shoulder; bp - Immunization history:: Adult Immunizations up to date. - Social history:: Smoking status: Patient reports the use of cigarette tobacco products, unknown amount Patient uses street drugs. Screenin:30 [facility] ED Fall Risk Assessment (Adult) History of falling in the last 3 months, bp including since admission No falls in past 3 months (0 pts). Abuse screen: Denies threats or abuse. Denies injuries from another. Nutritional screening: No deficits noted. Tuberculosis screening: No symptoms or risk factors identified. Assessment: 22:30 General: SEE TRIAGE NOTE. bp 23:38 Reassessment: Patient appears in no apparent distress at this time. Patient is alert, bp oriented x 3, equal unlabored respirations, skin warm/dry/pink. 03/05 00:00 Reassessment: Patient appears in no apparent distress at this time. No changes from lg3 previously documented assessment. Patient and/or family updated on plan of care and expected duration. Pain level reassessed. Patient is alert, oriented x 3, equal unlabored respirations, skin warm/dry/pink. Patient states feeling better. Patient states symptoms have improved. Vital Signs: 03/04 22:30 BP 116 / 53; Pulse 90; Resp 16; Temp 98.3; Pulse Ox 100% ; bp 23:38 BP 111 / 62; Pulse 66; Resp 13; Pulse Ox 97% ; bp ED Course: 22:30 Arm band placed on. bp 22:30 Patient has correct armband on for positive identification. Bed in low position. Call bp light in reach. Side rails up X2. 22:31 Patient arrived in ED. rv1 22:33 Eduardo Layne MD is Attending Physician. ec2 22:41 True Vo, SUMAYA is Primary Nurse. bp 22:42 Triage completed. bp 22:57 CXR XRAY In Process Unspecified. EDMS 03/05 00:01 No provider procedures requiring assistance completed. Patient did not have IV access lg3 during this emergency room visit. Administered Medications: 03/04 22:56 Drug: hydrOXYzine PO 50 mg PO once Route: PO; jw7 03/05 00:00 Follow up: Response: No adverse reaction; Marked relief of symptoms; Anxiety decreased lg3 Medication: 00:01 VIS not applicable for this client. lg3 Outcome: 03/04 23:45 Discharge ordered by . ec2 03/05 00:01 Discharged to home ambulatory, with family, lg3 Condition: stable Discharge instructions given to patient, Instructed on discharge instructions, follow up and referral plans. medication usage, Demonstrated understanding of instructions, follow-up care, medications, Prescriptions given X 1, 00:01 Patient left the ED. lg3 Signatures: Dispatcher [employer] EDSD True Vo, RN RN bp Teri Rockwell RN RN lg3 Maribel Reyes RN RN jw7 Jeanne Her rv1 Eduardo Layne MD MD ec2
[2023-03-05 01:44] VITALS: TEMP 98.3
[2023-03-05 01:45] VITALS: BP 111/62; O2SAT 97
--- NOTE | 2023-03-05 13:37 | EKG ---
Test Date: 2023-03-04 Test Time: 22:43:49 Hotel Concierge: JANET MEASUREMENT RESULTS: Intervals: Rate: 81 DE: 144 QRSD: 96 QT: 388 QTc: 450 [place]: P: 52 DE: 144 QRS: 86 T: 13 INTERPRETIVE STATEMENTS: Normal sinus rhythm Normal ECG Compared to ECG 01/30/2023 03:42:28 Sinus tachycardia no longer present Electronically Signed On 03-05-23 13:36:07 CDT by Harjinder Manuel
--- NOTE | 2023-03-05 16:04 | RAD REPORT ---
EXAM DESCRIPTION: RAD - Chest Single View - 03/04/2023 10:55 pm CLINICAL HISTORY: COUGH TECHNIQUE: Frontal view of the chest. COMPARISON: XR Chest dated 01/20/2023 FINDINGS: Lungs: Unremarkable. No consolidation. Pleural space: Unremarkable. No pneumothorax. Heart: Unremarkable. No cardiomegaly. Mediastinum: Unremarkable. Bones/joints: Unremarkable. IMPRESSION: No acute disease. Electronically signed by: Kary Morrison MD 03/04/2023 11:41 PM CDT Due to temporary technical issues with the PACS/Fluency reporting system, reports are being signed by the in house radiologists without review as a courtesy to insure prompt reporting. The interpreting radiologist is fully responsible for the content of the report.
== END 2023-03-05 00:01 | disposition home or self-care (01) ==
LOC: ER 22:29
DX: J06.9 Acute upper respiratory infection, unspecified (principal); F41.9 Anxiety disorder, unspecified; I10 Essential (primary) hypertension; Z88.2 Allergy status to sulfonamides; Z88.5 Allergy status to narcotic agent; Z72.0 Tobacco use
CPT/HCPCS: 71045; 93005; 99283

== ENCOUNTER → 2023-07-24 | Emergency (ER) | payer OTHER ==
[~2023-07-24] MED LIST: CEFTRIAXONE 1000 MG/VIAL ONE; CIPROFLOXACIN HCL 500 MG TAB ONE
--- OUTSIDE RECORDS SUMMARY | 2023-07-24 09:42 | XMS REPORT | Continuity of Care Document ---
Author Name Unknown Address [address] [facility] [address] [place] [address] [facility] Address [address] [place] [address] Care Team Providers Care Telephone Service Representative Name Role Phone SUSAN HAIDER Primary Care Physician Unavailable SUSAN HAIDER Attending Clinician Selena Susan Benson MD Attending Clinician TRUE BHANDARI Attending Clinician Unavailable Alberto PATIENT TRANSITION SPECIALISTTrue Mcneil Attending Clinician [phone] Unknown, Attending Attending Clinician Unavailab le Doctor Unassigned, [place] Attending Clinician U JO Yap Attending Clinician Unavailable Jo Butler MD Attending Clinician [phone] Mannie Bang RN, Jaclyn Johnston Attending Clinician Unava ilable Lab, Ang - Db Attending Clinician Unavailable LORENA SALGADO Attending Clinician UnavailLorena Nicholson MD Attending Clinician [phone] ADONIS REBOLLAR Attending Clinician Unavailable Adonis Rebollar DO Attending Clinician [phone] Sammi Steele Attending Clinician [phone] SAMMI FOSTER Attending Clinician Unavailable Tyler Goodrich PA-C Attending Clinician [phone] TYLER GOODRICH Attending Clinician Unavailable Silas Martins MD Attending Clinician [phone] Adair Richmond Attending Clinician [phone] ADAIR ROMERO Attending Clinician Unavailable ALANA FRANCO Attending Clinician Unavailable ALANA FRANCO Attending Clinician Unavailable DUNG SHAHID Attending Clinician Unavail able SILAS MARTINS Attending Clinician Unavailable Stefanie Abarca MA Attending Clinician UnavailRabia Mckay MD Attending Clinician [phone] RABIA SANCHEZ Attending Clinician Unavailable Po, [facility] Attending Clinician UnavailMINE Mcmullen Attending Clinician Unavailable ELOY ROLAND Attending Clinician Unavailolivier Conde MD, Alan Pollard Attending Clinician + [phone] ALAN CONDE Attending Clinician Unavai otilio Morris PATIENT TRANSITION SPECIALIST, Arcelia Attending Clinician + [phone] ARCELIA MORRIS Attending Clinician Unavailable Kerry Kruse PA-C Attending Clinician + [phone] Rebeca Mcclellan MD Attending Clinician [phone] Yves Ayala DO Attending Clinician [phone] KERRY KRUSE Attending Clinician Unavailable Nurse, Gaudencio Rawls Attending Clinician Unavaila burton Nurse, [facility] Attending Clinician Un available Mine Sheth MD Attending Clinician [phone] Vonda AUT[employer]OR MECHANIC, rBidget G Attending Clinician [phone] Maximo MEDINAP, Gianni B Attending Clinician [phone] Quoc PINEDO, Michelle Johnston Attending Clinician Unava ilable UNKNOWN, ATTENDING Attending Clinician Unavailab lynnette Harris RN, Holly Nunez Attending Clinician Unavailab lynnette Bateman MD, Cyrus P Attending Clinician + [phone] Ventura Torres MD Attending Clinician + [phone] DR MATT MCLAUGHLIN Attending Clinician Unavailable LORENA GREER Attending Clinician Unavailable SUSAN HAIDER Admitting Clinician Selena vailable LORENA SALGADO Admitting Clinician UnavailADONIS Vance Admitting Clinician Unavailable DR MATT MCLAUGHLIN Admitting Clinician Unavailable LORENA GREER Admitting Clinician Unavailable Payers Payer Name Policy Type Policy Number Effective Date Expirati on Date Source [facility] [id number] 00:00:00 MARY RODRIGUEZ [id number] 2023 00:00:00 Problems Condition Name Condition Details Condition Category Status Onset Date Resolution Date Last Treatment Date Treating Clinician Comments Source Anemia, unspecifie d type Anemia, unspecifie d type Disease Active 01-21 00:00: 00 [facility] Hypokalemi a Hypokalemi a Disease Active 01-21 00:00: 00 [facility] Lumbar pain Lumbar pain Disease Active 11-24 00:00: 00 [facility] Essential hypertensi on Essential hypertensi on Disease Active 5 00:00: 00 [facility] History of trichomona l vaginitis History of trichomona l vaginitis Disease Active 805 00:00: 00 [facility] Trichomona l vulvovagin itis Trichomona l vulvovagin itis Disease Active 12-01 00:00: 00 [facility] BV (bacterial vaginosis) BV (bacterial vaginosis) Disease Active 12-01 00:00: 00 [facility] Obesity (BMI 30-39.9) Obesity (BMI 30-39.9) Disease Active 11-22 00:00: 00 [facility] Skin yeast infection Skin yeast infection Disease Active 12-02 00:00: 00 [facility] Screen for STD (sexually transmitte d disease) Screen for STD (sexually transmitte d disease) Disease Active 12-02 00:00: 00 [facility] Depo contracept ion Depo contracept ion Disease Active 12-02 00:00: 00 [facility] Pain pelvic Pain pelvic Disease Active 2-15 00:00: 00 [facility] Surveillan ce of previously prescribed contracept sosa method Surveillan ce of previously prescribed contracept sosa method Disease Active 07-02 00:00: 00 [facility] Irregular menstrual cycle Irregular menstrual cycle Disease Active 07-02 00:00: 00 [facility] Well woman exam without gynecologi cornelius exam Well woman exam without gynecologi cornelius exam Disease Active 07-02 00:00: 00 [facility] Need for prophylact ic vaccinatio n with combined diphtheria -tetanus-p ertussis (DTP) vaccine Need for prophylact ic vaccinatio n with combined diphtheria -tetanus-p ertussis (DTP) vaccine Disease Active 07-02 00:00: 00 [facility] BMI 34.0-34.9, adult BMI 34.0-34.9, adult Disease Active 07-02 00:00: 00 [facility] Allergies, Adverse Reactions, Alerts Allergy Name Allergy Type Status Severity Reaction(s) Onset Date Inactive Date Treating Clinician Comments Source TRAMADOL DRUG INGREDI Active N/V 07-04 00:00: 00 [facility] Tramadol Propensi ty to adverse reaction s Active Nausea and/or Vomiting 07-04 00:00: 00 [facility] Sulfa (Sulfona mide Antibiot ics) Propensi ty to adverse reaction s Active Hives 10-28 00:00: 00 [facility] SULFA (SULFONA MIDE ANTIBIOT ICS) Drug Class Active Hives 10-28 00:00: 00 [facility] Social History Social Habit Start Date Stop Date Quantity Comments Source History SDOH Alcohol Comment [place] [facility] [place] [facility] History of tobacco use Cigarette Smoker [facility] Alcohol intake 2023-07-16 00:00:00 2023-07-16 00:00:00 Ex-drinker (finding) [facility] History of Social function 2023-04-15 00:00:00 2023-04-15 00:00:00 [facility] Tobacco Comment 2023-02-17 00:00:00 2023-02-17 00:00:00 Smokes 2-3 cigarettes occasionally [facility] Tobacco use and exposure 2023-02-17 00:00:00 2023-02-17 00:00:00 Smokeless tobacco non-user [facility] Exposure to SARS-CoV-2 (event) 2022-08-29 00:00:00 2022-09-08 15:36:00 Not sure [facility] History SDOH Alcohol Frequency 2019-12-21 00:00:00 2019-12-21 00:00:00 2 [facility] History SDOH Alcohol Std Drinks 2019-12-21 00:00:00 2019-12-21 00:00:00 99 [facility] History SDOH Alcohol Binge 2019-12-21 00:00:00 2019-12-21 00:00:00 99 [facility] Sex Assigned At 1980 00:00:00 1980 00:00:00 [facility] Smoking Status Start Date Stop Date Source Occasional tobacco smoker 2023-02-17 00:00:00 [facility] Medications Ordered Medication Name Filled Medication Name Start Date Stop Date Current Medication? Ordering Clinician Indication Dosage Frequency Signature (SIG) Comments Components Source metroNIDAZO LE 500 mg tablet 07-20 00:00: 00 07-28 04:59 :00 Yes [id number] 500mg Take 1 tablet by mouth in the morning and 1 tablet in the evening. Do all this for 7 days. [facility] metoprolol tartrate 25 mg tablet 00:00: 00 Yes [id number] 12.5mg Take 0.5 tablets by mouth in the morning. [facility] SERTraline 50 mg tablet 00:00: 00 Yes [id number] 50mg Take 1 tablet by mouth in the morning. [facility] metoprolol tartrate 25 mg tablet 00:00: 00 Yes [id number] 12.5mg Take 0.5 tablets by mouth in the morning. [facility] SERTraline 50 mg tablet 00:00: 00 Yes [id number] 50mg Take 1 tablet by mouth in the morning. [facility] metoprolol tartrate 25 mg tablet 00:00: 00 Yes [id number] 12.5mg Take 0.5 tablets by mouth in the morning. [facility] SERTraline 50 mg tablet 00:00: 00 Yes [id number] 50mg Take 1 tablet by mouth in the morning. [facility] dexamethaso ne (DECADRON) injection 10 mg 07-01 20:15: 00 07-01 19:20 :00 No [id number] 10mg [facility] dexamethaso ne (DECADRON) injection 10 mg 07-01 20:15: 00 07-01 19:20 :00 No [id number] 10mg 10 mg, Intramuscu lar, ONCE, 1 dose, On Thu07/01/23 at 1415, Routine [facility] dexamethaso ne (DECADRON) injection 10 mg 07-01 20:15: 00 07-01 19:20 :00 No [id number] 10mg [facility] dexamethaso ne (DECADRON) injection 10 mg 07-01 20:15: 00 07-01 19:20 :00 No [id number] 10mg 10 mg, Intramuscu lar, ONCE, 1 dose, On Thu07/01/23 at 1415, Routine [facility] ketorolac (TORADOL) injection 30 mg 14 20:00: 00 07-01 19:21 :00 No [id number] 30mg [facility] ketorolac (TORADOL) injection 30 mg 2023-0 -14 20:00: 00 07-01 19:21 :00 No [id number] 30mg 30 mg, Intramuscu lar, ONCE, 1 dose, On Thu07/01/23 at 1400, Routine [facility] ketorolac (TORADOL) injection 30 mg 2023--14 20:00: 00 07-01 19:21 :00 No [id number] 30mg [facility] ketorolac (TORADOL) injection 30 mg 2-14 20:00: 00 07-01 19:21 :00 No [id number] 30mg 30 mg, Intramuscu lar, ONCE, 1 dose, On Thu07/01/23 at 1400, Routine [facility] methocarbam oL (ROBAXIN-75 0) 750 mg tablet -14 00:00: 00 07-12 05:59 :00 Yes [id number] 750mg Take 1 tablet by mouth 4 (four) times daily for 10 days. [facility] methocarbam oL (ROBAXIN-75 0) 750 mg tablet 14 00:00: 00 07-12 05:59 :00 Yes [id number] 750mg Take 1 tablet by mouth 4 (four) times daily for 10 days. [facility] hydrOXYzine 10 mg tablet 2023-0 2-13 00:00: 00 Yes [id number] 10mg Take 1 tablet by mouth every 6 (six) hours as needed for Anxiety. [facility] hydrOXYzine 10 mg tablet 2023-0 2-13 00:00: 00 Yes [id number] 10mg Take 1 tablet by mouth every 6 (six) hours as needed for Anxiety. [facility] hydrOXYzine 10 mg tablet 2023-0 2-13 00:00: 00 Yes [id number] 10mg Take 1 tablet by mouth every 6 (six) hours as needed for Anxiety. [facility] hydrOXYzine 10 mg tablet 2023-0 2-13 00:00: 00 Yes [id number] 10mg Take 1 tablet by mouth every 6 (six) hours as needed for Anxiety. [facility] hydrOXYzine 10 mg tablet 2023-0 2-13 00:00: 00 00:00 :00 No [id number] 10mg Take 1 tablet by mouth every 6 (six) hours as needed for Anxiety. [facility] hydrOXYzine 10 mg tablet 2023-0 2-13 00:00: 00 00:00 :00 No [id number] 10mg Take 1 tablet by mouth every 6 (six) hours as needed for Anxiety. [facility] bromphenira mine-pseudo ephedrine-D M (BROMFED DM) 2-30-10 mg/5 mL syrup 2022-05 2-18 00:00: 00 Yes [id number] 10mL Take 10 mL by mouth 4 (four) times daily as needed for Cold symptoms or Cough. [facility] bromphenira mine-pseudo ephedrine-D M (BROMFED DM) 2-30-10 mg/5 mL syrup 2022-05 2-18 00:00: 00 Yes [id number] 10mL Take 10 mL by mouth 4 (four) times daily as needed for Cold symptoms or Cough. [facility] bromphenira mine-pseudo ephedrine-D M (BROMFED DM) 2-30-10 mg/5 mL syrup 2022-05 2-18 00:00: 00 Yes [id number] 10mL Take 10 mL by mouth 4 (four) times daily as needed for Cold symptoms or Cough. [facility] bromphenira mine-pseudo ephedrine-D M (BROMFED DM) 2-30-10 mg/5 mL syrup 2022-05 2-18 00:00: 00 Yes [id number] 10mL Take 10 mL by mouth 4 (four) times daily as needed for Cold symptoms or Cough. [facility] bromphenira mine-pseudo ephedrine-D M (BROMFED DM) 2-30-10 mg/5 mL syrup 2022-05 2-18 00:00: 00 Yes [id number] 10mL Take 10 mL by mouth 4 (four) times daily as needed for Cold symptoms or Cough. [facility] bromphenira mine-pseudo ephedrine-D M (BROMFED DM) 2-30-10 mg/5 mL syrup 2022-05 2-18 00:00: 00 Yes [id number] 10mL Take 10 mL by mouth 4 (four) times daily as needed for Cold symptoms or Cough. [facility] bromphenira mine-pseudo ephedrine-D M (BROMFED DM) 2-30-10 mg/5 mL syrup 2022-05 2-18 00:00: 00 Yes [id number] 10mL Take 10 mL by mouth 4 (four) times daily as needed for Cold symptoms or Cough. [facility] bromphenira mine-pseudo ephedrine-D M (BROMFED DM) 2-30-10 mg/5 mL syrup 2022-05 2- 00:00: 00 Yes [id number] 10mL Take 10 mL by mouth 4 (four) times daily as needed for Cold symptoms or Cough. [facility] bromphenira mine-pseudo ephedrine-D M (BROMFED DM) 2-30-10 mg/5 mL syrup 2022-05 00:00: 00 Yes [id number] 10mL Take 10 mL by mouth 4 (four) times daily as needed for Cold symptoms or Cough. [facility] bromphenira mine-pseudo ephedrine-D M (BROMFED DM) 2-30-10 mg/5 mL syrup 2022-05 00:00: 00 Yes [id number] 10mL Take 10 mL by mouth 4 (four) times daily as needed for Cold symptoms or Cough. [facility] amoxicillin -clavulanat e (AUGMENTIN) 875-125 mg per tablet 2022-05 00:00: 00 05-15 05:59 :00 Yes [id number] 1{tbl} Take 1 tablet by mouth in the morning and 1 tablet in the evening. Do all this for 10 days. [facility] SERTraline 25 mg tablet 2022-05 00:00: 00 Yes [id number] 25mg Take 1 tablet by mouth in the morning. [facility] metoprolol tartrate 25 mg tablet 2022-05 00:00: 00 Yes [id number] 12.5mg Take 0.5 tablets by mouth in the morning. [facility] hydrOXYzine 10 mg tablet 2022-05 00:00: 00 Yes [id number] 10mg Take 1 tablet by mouth every 6 (six) hours as needed for Anxiety. [facility] SERTraline 25 mg tablet 2022-05 00:00: 00 Yes [id number] 25mg Take 1 tablet by mouth in the morning. [facility] metoprolol tartrate 25 mg tablet 2022-05 00:00: 00 Yes [id number] 12.5mg Take 0.5 tablets by mouth in the morning. [facility] hydrOXYzine 10 mg tablet 2022-05 00:00: 00 Yes [id number] 10mg Take 1 tablet by mouth every 6 (six) hours as needed for Anxiety. [facility] SERTraline 25 mg tablet 2022-05 00:00: 00 Yes [id number] 25mg Take 1 tablet by mouth in the morning. [facility] metoprolol tartrate 25 mg tablet 2022-05 00:00: 00 Yes [id number] 12.5mg Take 0.5 tablets by mouth in the morning. [facility] hydrOXYzine 10 mg tablet 2022-05 00:00: 00 Yes [id number] 10mg Take 1 tablet by mouth every 6 (six) hours as needed for Anxiety. [facility] SERTraline 25 mg tablet 2022-05 00:00: 00 Yes [id number] 25mg Take 1 tablet by mouth in the morning. [facility] metoprolol tartrate 25 mg tablet 2022-05 00:00: 00 Yes [id number] 12.5mg Take 0.5 tablets by mouth in the morning. [facility] hydrOXYzine 10 mg tablet 2022-05 00:00: 00 Yes [id number] 10mg Take 1 tablet by mouth every 6 (six) hours as needed for Anxiety. [facility] SERTraline 25 mg tablet 2022-05 00:00: 00 Yes [id number] 25mg Take 1 tablet by mouth in the morning. [facility] metoprolol tartrate 25 mg tablet 2022-05 00:00: 00 Yes [id number] 12.5mg Take 0.5 tablets by mouth in the morning. [facility] SERTraline 25 mg tablet 2022-05 00:00: 00 Yes [id number] 25mg Take 1 tablet by mouth in the morning. [facility] metoprolol tartrate 25 mg tablet 2022-05 00:00: 00 Yes [id number] 12.5mg Take 0.5 tablets by mouth in the morning. [facility] SERTraline 25 mg tablet 2022-05 00:00: 00 Yes [id number] 25mg Take 1 tablet by mouth in the morning. [facility] metoprolol tartrate 25 mg tablet 2022-05 00:00: 00 Yes [id number] 12.5mg Take 0.5 tablets by mouth in the morning. [facility] SERTraline 25 mg tablet 2022-05 00:00: 00 Yes [id number] 25mg Take 1 tablet by mouth in the morning. [facility] metoprolol tartrate 25 mg tablet 2022-05 00:00: 00 Yes [id number] 12.5mg Take 0.5 tablets by mouth in the morning. [facility] SERTraline 25 mg tablet 2022-05 00:00: 00 Yes [id number] 25mg Take 1 tablet by mouth in the morning. [facility] metoprolol tartrate 25 mg tablet 2022-05 00:00: 00 Yes [id number] 12.5mg Take 0.5 tablets by mouth in the morning. [facility] SERTraline 25 mg tablet 2022-05 00:00: 00 00:00 :00 No [id number] 25mg Take 1 tablet by mouth in the morning. [facility] metoprolol tartrate 25 mg tablet 2022-05 00:00: 00 00:00 :00 No [id number] 12.5mg Take 0.5 tablets by mouth in the morning. [facility] SERTraline 25 mg tablet 2022-05 00:00: 00 00:00 :00 No [id number] 25mg Take 1 tablet by mouth in the morning. [facility] metoprolol tartrate 25 mg tablet 2022-05 00:00: 00 00:00 :00 No [id number] 12.5mg Take 0.5 tablets by mouth in the morning. [facility] hydrOXYzine 10 mg tablet 2022-05 00:00: 00 06-29 00:00 :00 No [id number] 10mg Take 1 tablet by mouth every 6 (six) hours as needed for Anxiety. [facility] tablet 2022-05 00:00: 00 06-29 00:00 :00 No [id number] 10mg Take 1 tablet by mouth every 6 (six) hours as needed for Anxiety. [facility] SERTraline 50 mg tablet 2022-05 00:00: 00 Yes [id number] 50mg Take 1 tablet by mouth in the morning. [facility] hydrOXYzine 10 mg tablet 2022-05 00:00: 00 Yes [id number] 10mg Take 1 tablet by mouth every 6 (six) hours as needed for Anxiety. [facility] SERTraline 50 mg tablet 2022-05 00:00: 00 Yes [id number] 50mg Take 1 tablet by mouth in the morning. [facility] hydrOXYzine 10 mg tablet 2022-05 00:00: 00 Yes [id number] 10mg Take 1 tablet by mouth every 6 (six) hours as needed for Anxiety. [facility] SERTraline 50 mg tablet 2022-05 00:00: 00 04-15 00:00 :00 No [id number] 50mg Take 1 tablet by mouth in the morning. [facility] hydrOXYzine 10 mg tablet 2022-05 00:00: 00 04-15 00:00 :00 No [id number] 10mg Take 1 tablet by mouth every 6 (six) hours as needed for Anxiety. [facility] SERTraline 50 mg tablet 2022-05 00:00: 00 04-15 00:00 :00 No [id number] 50mg Take 1 tablet by mouth in the morning. [facility] hydrOXYzine 10 mg tablet 2022-05 00:00: 00 04-15 00:00 :00 No [id number] 10mg Take 1 tablet by mouth every 6 (six) hours as needed for Anxiety. [facility] METOPROLOL TARTRATE 25 mg tablet 2022-05 00:00: 00 Yes [id number] TAKE ONE-HALF (1/2) TABLET(S) BY MOUTH EVERY MORNING. [facility] METOPROLOL TARTRATE 25 mg tablet 2022-05 00:00: 00 Yes [id number] TAKE ONE-HALF (1/2) TABLET(S) BY MOUTH EVERY MORNING. [facility] METOPROLOL TARTRATE 25 mg tablet 2022-05 00:00: 00 Yes [id number] TAKE ONE-HALF (1/2) TABLET(S) BY MOUTH EVERY MORNING. [facility] METOPROLOL TARTRATE 25 mg tablet 2022-05 00:00: 00 Yes [id number] TAKE ONE-HALF (1/2) TABLET(S) BY MOUTH EVERY MORNING. [facility] METOPROLOL TARTRATE 25 mg tablet 2022-05 00:00: 00 04-15 00:00 :00 No [id number] TAKE ONE-HALF (1/2) TABLET(S) BY MOUTH EVERY MORNING. [facility] METOPROLOL TARTRATE 25 mg tablet 2022-05 00:00: 00 04-15 00:00 :00 No [id number] TAKE ONE-HALF (1/2) TABLET(S) BY MOUTH EVERY MORNING. [facility] cetirizine 10 mg tablet 2022-05 14:12: 48 Yes 10mg Take 1 tablet by mouth in the morning. [facility] ferrous sulfate (IRON) 325 mg (65 mg iron) tablet 2022-05 14:12: 48 Yes 325mg Take 1 tablet by mouth in the morning. [facility] cetirizine 10 mg tablet 2022-05 14:12: 48 Yes 10mg Take 1 tablet by mouth in the morning. [facility] ferrous sulfate (IRON) 325 mg (65 mg iron) tablet 2022-05 14:12: 48 Yes 325mg Take 1 tablet by mouth in the morning. [facility] cetirizine 10 mg tablet 2022-05 14:12: 48 Yes 10mg Take 1 tablet by mouth in the morning. [facility] ferrous sulfate (IRON) 325 mg (65 mg iron) tablet 2022-05 14:12: 48 Yes 325mg Take 1 tablet by mouth in the morning. [facility] cetirizine 10 mg tablet 2022-05 14:12: 48 Yes 10mg Take 1 tablet by mouth in the morning. [facility] ferrous sulfate (IRON) 325 mg (65 mg iron) tablet 2022-05 14:12: 48 Yes 325mg Take 1 tablet by mouth in the morning. [facility] cetirizine 10 mg tablet 2022-05 14:12: 48 Yes 10mg Take 1 tablet by mouth in the morning. [facility] ferrous sulfate (IRON) 325 mg (65 mg iron) tablet 2022-05 14:12: 48 Yes 325mg Take 1 tablet by mouth in the morning. [facility] cetirizine 10 mg tablet 2022-05 14:12: 48 Yes 10mg Take 1 tablet by mouth in the morning. [facility] [facility] f[facility] sulfate (IRON) 325 mg (65 mg iron) tablet 2022-05 14:12: 48 Yes 325mg Take 1 tablet by mouth in the morning. [facility] cetirizine 10 mg tablet 2022-05 14:12: 48 Yes 10mg Take 1 tablet by mouth in the morning. [facility] ferrous sulfate (IRON) 325 mg (65 mg iron) tablet 2022-05 14:12: 48 Yes 325mg Take 1 tablet by mouth in the morning. [facility] cetirizine 10 mg tablet 2022-05 14:12: 48 Yes 10mg Take 1 tablet by mouth in the morning. [facility] ferrous sulfate (IRON) 325 mg (65 mg iron) tablet 2022-05 14:12: 48 Yes 325mg Take 1 tablet by mouth in the morning. [facility] cetirizine 10 mg tablet 2022-05 14:12: 48 Yes 10mg Take 1 tablet by mouth in the morning. [facility] ferrous sulfate (IRON) 325 mg (65 mg iron) tablet 2022-05 14:12: 48 Yes 325mg Take 1 tablet by mouth in the morning. [facility] cetirizine 10 mg tablet 2022-05 14:12: 48 Yes 10mg Take 1 tablet by mouth in the morning. [facility] ferrous sulfate (IRON) 325 mg (65 mg iron) tablet 2022-05 14:12: 48 Yes 325mg Take 1 tablet by mouth in the morning. [facility] cetirizine 10 mg tablet 2022-05 14:12: 48 Yes 10mg Take 1 tablet by mouth in the morning. [facility] ferrous sulfate (IRON) 325 mg (65 mg iron) tablet 2022-05 14:12: 48 Yes 325mg Take 1 tablet by mouth in the morning. [facility] cetirizine 10 mg tablet 2022-05 14:12: 48 Yes 10mg Take 1 tablet by mouth in the morning. [facility] ferrous sulfate (IRON) 325 mg (65 mg iron) tablet 2022-05 14:12: 48 Yes 325mg Take 1 tablet by mouth in the morning. [facility] cetirizine 10 mg tablet 2022-05 14:12: 48 Yes 10mg Take 1 tablet by mouth in the morning. [facility] ferrous sulfate (IRON) 325 mg (65 mg iron) tablet 2022-05 14:12: 48 Yes 325mg Take 1 tablet by mouth in the morning. [facility] cetirizine 10 mg tablet 2022-05 14:12: 48 Yes 10mg Take 1 tablet by mouth in the morning. [facility] ferrous sulfate (IRON) 325 mg (65 mg iron) tablet 2022-05 14:12: 48 Yes 325mg Take 1 tablet by mouth in the morning. [facility] cetirizine 10 mg tablet 2022-05 14:12: 48 Yes 10mg Take 1 tablet by mouth in the morning. [facility] ferrous sulfate (IRON) 325 mg (65 mg iron) tablet 2022-05 14:12: 48 Yes 325mg Take 1 tablet by mouth in the morning. [facility] cetirizine 10 mg tablet 2022-05 14:12: 48 Yes 10mg Take 1 tablet by mouth in the morning. [facility] ferrous sulfate (IRON) 325 mg (65 mg iron) tablet 2022-05 14:12: 48 Yes 325mg Take 1 tablet by mouth in the morning. [facility] cetirizine 10 mg tablet 2022-05 14:12: 48 Yes 10mg Take 1 tablet by mouth in the morning. [facility] ferrous sulfate (IRON) 325 mg (65 mg iron) tablet 2022-05 14:12: 48 Yes 325mg Take 1 tablet by mouth in the morning. [facility] cetirizine 10 mg tablet 2022-05 14:12: 48 Yes 10mg Take 1 tablet by mouth in the morning. [facility] ferrous sulfate (IRON) 325 mg (65 mg iron) tablet 2022-05 14:12: 48 Yes 325mg Take 1 tablet by mouth in the morning. [facility] hydrOXYzine 10 mg tablet 2022-05 00:00: 00 Yes [id number] 10mg Take 1 tablet by mouth every 6 (six) hours as needed for Anxiety. [facility] fluticasone propionate 50 mcg/actuati on nasal spray 2022-05 00:00: 00 Yes [id number] 1{spray } Use 1 [place] in each nostril in the morning. [facility] hydrOXYzine 10 mg tablet 2022-05 00:00: 00 Yes [id number] 10mg Take 1 tablet by mouth every 6 (six) hours as needed for Anxiety. [facility] fluticasone propionate 50 mcg/actuati on nasal spray 2022-05 00:00: 00 Yes [id number] 1{spray } Use 1 [place] in each nostril in the morning. [facility] hydrOXYzine 10 mg tablet 2022-05 019 00:00: 00 Yes [id number] 10mg Take 1 tablet by mouth every 6 (six) hours as needed for Anxiety. [facility] fluticasone propionate 50 mcg/actuati on nasal spray 2022-05 0 00:00: 00 Yes [id number] 1{spray } Use 1 [place] in each nostril in the morning. [facility] hydrOXYzine 10 mg tablet 2022-05 0 00:00: 00 Yes [id number] 10mg Take 1 tablet by mouth every 6 (six) hours as needed for Anxiety. [facility] fluticasone propionate 50 mcg/actuati on nasal spray 2022-05 0 00:00: 00 Yes [id number] 1{spray } Use 1 [place] in each nostril in the morning. [facility] fluticasone propionate 50 mcg/actuati on nasal spray 2022-05 0 00:00: 00 Yes [id number] 1{spray } Use 1 [place] in each nostril in the morning. [facility] fluticasone propionate 50 mcg/actuati on nasal spray 2022-05 0 00:00: 00 Yes [id number] 1{spray } Use 1 [place] in each nostril in the morning. [facility] fluticasone propionate 50 mcg/actuati on nasal spray 2022-05 0 00:00: 00 Yes [id number] 1{spray } Use 1 [place] in each nostril in the morning. [facility] fluticasone propionate 50 mcg/actuati on nasal spray 2022-05 0 00:00: 00 Yes [id number] 1{spray } Use 1 [place] in each nostril in the morning. [facility] fluticasone propionate 50 mcg/actuati on nasal spray 2022-05 0 00:00: 00 Yes [id number] 1{spray } Use 1 [place] in each nostril in the morning. [facility] fluticasone propionate 50 mcg/actuati on nasal spray 2022-05 0 00:00: 00 Yes [id number] 1{spray } Use 1 [place] in each nostril in the morning. [facility] fluticasone propionate 50 mcg/actuati on nasal spray 2022-05 019 00:00: 00 Yes [id number] 1{spray } Use 1 [place] in each nostril in the morning. [facility] fluticasone propionate 50 mcg/actuati on nasal spray 2022-05 019 00:00: 00 Yes [id number] 1{spray } Use 1 [place] in each nostril in the morning. [facility] fluticasone propionate 50 mcg/actuati on nasal spray 2022-05 0 00:00: 00 Yes [id number] 1{spray } Use 1 [place] in each nostril in the morning. [facility] fluticasone propionate 50 mcg/actuati on nasal spray 2022-05 0 00:00: 00 Yes [id number] 1{spray } Use 1 [place] in each nostril in the morning. [facility] fluticasone propionate 50 mcg/actuati on nasal spray 2022-05 0 00:00: 00 Yes [id number] 1{spray } Use 1 [place] in each nostril in the morning. [facility] fluticasone propionate 50 mcg/actuati on nasal spray 2022-05 0 00:00: 00 Yes [id number] 1{spray } Use 1 [place] in each nostril in the morning. [facility] fluticasone propionate 50 mcg/actuati on nasal spray 2022-05 0 00:00: 00 Yes [id number] 1{spray } Use 1 [place] in each nostril in the morning. [facility] fluticasone propionate 50 mcg/actuati on nasal spray 2022-05 0 00:00: 00 Yes [id number] 1{spray } Use 1 [place] in each nostril in the morning. [facility] SERTraline 50 mg tablet 2022-05 019 00:00: 00 04-13 05:59 :00 No [id number] Take 0.5 tablets by mouth daily for 8 days, THEN 1 tablet daily for 30 days. [facility] SERTraline 50 mg tablet 2022-05 0-19 00:00: 00 04-13 05:59 :00 No [id number] Take 0.5 tablets by mouth daily for 8 days, THEN 1 tablet daily for 30 days. [facility] SERTraline 50 mg tablet 2022-05 0-19 00:00: 00 04-13 05:59 :00 No [id number] Take 0.5 tablets by mouth daily for 8 days, THEN 1 tablet daily for 30 days. [facility] SERTraline 50 mg tablet 2022-05 0-19 00:00: 00 04-13 05:59 :00 No [id number] Take 0.5 tablets by mouth daily for 8 days, THEN 1 tablet daily for 30 days. [facility] SERTraline 50 mg tablet 2022-05 0 00:00: 00 03-31 00:00 :00 No [id number] Take 0.5 tablets by mouth daily for 8 days, THEN 1 tablet daily for 30 days. [facility] hydrOXYzine 10 mg tablet 2022-05 0 00:00: 00 03-31 00:00 :00 No [id number] 10mg Take 1 tablet by mouth every 6 (six) hours as needed for Anxiety. [facility] busPIRone 5 mg tablet 2022-05 0- 00:00: 00 Yes [id number] 5mg Take 1 tablet by mouth in the morning and 1 tablet in the evening. [facility] busPIRone 5 mg tablet 2022-05 0- 00:00: 00 Yes [id number] 5mg Take 1 tablet by mouth in the morning and 1 tablet in the evening. [facility] busPIRone 5 mg tablet 2022-05 0-03 00:00: 00 Yes [id number] 5mg Take 1 tablet by mouth in the morning and 1 tablet in the evening. [facility] busPIRone 5 mg tablet 2022-05 0-03 00:00: 00 Yes [id number] 5mg Take 1 tablet by mouth in the morning and 1 tablet in the evening. [facility] busPIRone 5 mg tablet 2022-05 0-03 00:00: 00 Yes [id number] 5mg Take 1 tablet by mouth in the morning and 1 tablet in the evening. [facility] busPIRone 5 mg tablet 2022-05 0- 00:00: 00 03-05 00:00 :00 No [id number] 5mg Take 1 tablet by mouth in the morning and 1 tablet in the evening. [facility] busPIRone 5 mg tablet 2022-05 0- 00:00: 00 03-05 00:00 :00 No [id number] 5mg Take 1 tablet by mouth in the morning and 1 tablet in the evening. [facility] METOPROLOL TARTRATE 25 mg tablet 2022-05 0- 00:00: 00 Yes [id number] TAKE ONE-HALF (1/2) TABLET(S) BY MOUTH EVERY MORNING. [facility] METOPROLOL TARTRATE 25 mg tablet 2022-05 0- 00:00: 00 Yes [id number] TAKE ONE-HALF (1/2) TABLET(S) BY MOUTH EVERY MORNING. [facility] METOPROLOL TARTRATE 25 mg tablet 2022-05 0 00:00: 00 Yes [id number] TAKE ONE-HALF (1/2) TABLET(S) BY MOUTH EVERY MORNING. [facility] METOPROLOL TARTRATE 25 mg tablet 2022-05 0- 00:00: 00 Yes [id number] TAKE ONE-HALF (1/2) TABLET(S) BY MOUTH EVERY MORNING. [facility] METOPROLOL TARTRATE 25 mg tablet 2022-05 0- 00:00: 00 Yes [id number] TAKE ONE-HALF (1/2) TABLET(S) BY MOUTH EVERY MORNING. [facility] METOPROLOL TARTRATE 25 mg tablet 2022-05 0- 00:00: 00 Yes [id number] TAKE ONE-HALF (1/2) TABLET(S) BY MOUTH EVERY MORNING. [facility] METOPROLOL TARTRATE 25 mg tablet 2022-05 0- 00:00: 00 Yes [id number] TAKE ONE-HALF (1/2) TABLET(S) BY MOUTH EVERY MORNING. [facility] METOPROLOL TARTRATE 25 mg tablet 2022-05 0- 00:00: 00 Yes [id number] TAKE ONE-HALF (1/2) TABLET(S) BY MOUTH EVERY MORNING. [facility] METOPROLOL TARTRATE 25 mg tablet 2022-05 0- 00:00: 00 03-18 00:00 :00 No [id number] TAKE ONE-HALF (1/2) TABLET(S) BY MOUTH EVERY MORNING. [facility] barium sulfate (LIQUID E-Z PAQUE) 60 % (w/v) oral suspension 340 g 02-11 16:15: 00 02-11 16:12 :00 No [id number] 340g 340 g, Oral, ONCE, 1 dose, On Thu02/11/23 at 1115, Routine [facility] metroNIDAZO LE (FLAGYL) 500 mg tablet 8 00:00: 00 Yes [id number] 500mg Take 1 tablet by mouth every 12 (twelve) hours. [facility] metroNIDAZO LE (FLAGYL) 500 mg tablet 830 00:00: 00 Yes [id number] 500mg Take 1 tablet by mouth every 12 (twelve) hours. [facility] metroNIDAZO LE (FLAGYL) 500 mg tablet 30 00:00: 00 Yes [id number] 500mg Take 1 tablet by mouth every 12 (twelve) hours. [facility] metroNIDAZO LE (FLAGYL) 500 mg tablet 0 8-30 00:00: 00 Yes [id number] 500mg Take 1 tablet by mouth every 12 (twelve) hours. [facility] metroNIDAZO LE (FLAGYL) 500 mg tablet 0 8-30 00:00: 00 Yes [id number] 500mg Take 1 tablet by mouth every 12 (twelve) hours. [facility] metroNIDAZO LE (FLAGYL) 500 mg tablet 0 8-30 00:00: 00 Yes [id number] 500mg Take 1 tablet by mouth every 12 (twelve) hours. [facility] metroNIDAZO LE (FLAGYL) 500 mg tablet 0 8-30 00:00: 00 Yes [id number] 500mg Take 1 tablet by mouth every 12 (twelve) hours. [facility] metroNIDAZO LE (FLAGYL) 500 mg tablet 2022-0 8-30 00:00: 00 Yes [id number] 500mg Take 1 tablet by mouth every 12 (twelve) hours. [facility] metroNIDAZO LE (FLAGYL) 500 mg tablet 3-0 8-30 00:00: 00 Yes [id number] 500mg Take 1 tablet by mouth every 12 (twelve) hours. [facility] metroNIDAZO LE (FLAGYL) 500 mg tablet 2022-0 8-30 00:00: 00 02-17 00:00 :00 No [id number] 500mg Take 1 tablet by mouth every 12 (twelve) hours. [facility] metroNIDAZO LE (FLAGYL) 500 mg tablet 2022-0 8-30 00:00: 00 02-17 00:00 :00 No [id number] 500mg Take 1 tablet by mouth every 12 (twelve) hours. [facility] METOPROLOL TARTRATE 25 mg tablet 2022-0 8-24 00:00: 00 Yes [id number] TAKE ONE-HALF (1/2) TABLET(S) BY MOUTH EVERY MORNING. [facility] METOPROLOL TARTRATE 25 mg tablet 2022-0 8-24 00:00: 00 Yes [id number] TAKE ONE-HALF (1/2) TABLET(S) BY MOUTH EVERY MORNING. [facility] METOPROLOL TARTRATE 25 mg tablet 3-0 8-24 00:00: 00 Yes [id number] TAKE ONE-HALF (1/2) TABLET(S) BY MOUTH EVERY MORNING. [facility] METOPROLOL TARTRATE 25 mg tablet 3-0 8-24 00:00: 00 Yes [id number] TAKE ONE-HALF (1/2) TABLET(S) BY MOUTH EVERY MORNING. [facility] METOPROLOL TARTRATE 25 mg tablet 3-0 8-24 00:00: 00 Yes [id number] TAKE ONE-HALF (1/2) TABLET(S) BY MOUTH EVERY MORNING. [facility] METOPROLOL TARTRATE 25 mg tablet 2023-0 8-24 00:00: 00 Yes [id number] TAKE ONE-HALF (1/2) TABLET(S) BY MOUTH EVERY MORNING. [facility] METOPROLOL TARTRATE 25 mg tablet 0 824 00:00: 00 Yes [id number] TAKE ONE-HALF (1/2) TABLET(S) BY MOUTH EVERY MORNING. [facility] METOPROLOL TARTRATE 25 mg tablet 2022-0 824 00:00: 00 Yes [id number] TAKE ONE-HALF (1/2) TABLET(S) BY MOUTH EVERY MORNING. [facility] METOPROLOL TARTRATE 25 mg tablet 2022-0 824 00:00: 00 Yes [id number] TAKE ONE-HALF (1/2) TABLET(S) BY MOUTH EVERY MORNING. [facility] METOPROLOL TARTRATE 25 mg tablet 0 24 00:00: 00 Yes [id number] TAKE ONE-HALF (1/2) TABLET(S) BY MOUTH EVERY MORNING. [facility] METOPROLOL TARTRATE 25 mg tablet 0 24 00:00: 00 02-16 00:00 :00 No [id number] TAKE ONE-HALF (1/2) TABLET(S) BY MOUTH EVERY MORNING. [facility] ondansetron 8 mg disintegrat ing tablet 0 12-03 00:00: 00 Yes DISSOLVE 1 TABLET IN MOUTH EVERY 12 HOURS [facility] ondansetron 8 mg disintegrat ing tablet 0 12-03 00:00: 00 02-17 00:00 :00 No DISSOLVE 1 TABLET IN MOUTH EVERY 12 HOURS [facility] ondansetron 8 mg disintegrat ing tablet 0 12-03 00:00: 00 02-17 00:00 :00 No DISSOLVE 1 TABLET IN MOUTH EVERY 12 HOURS [facility] tiZANidine 2 mg capsule 0 11-24 00:00: 00 Yes [id number] 2mg Take 1 capsule by mouth in the morning and 1 capsule at noon and 1 capsule in the evening. [facility] tiZANidine 2 mg capsule 2023-0 7-10 00:00: 00 Yes [id number] 2mg Take 1 capsule by mouth in the morning and 1 capsule at noon and 1 capsule in the evening. [facility] tiZANidine 2 mg capsule 3-0 7-10 00:00: 00 Yes [id number] 2mg Take 1 capsule by mouth in the morning and 1 capsule at noon and 1 capsule in the evening. [facility] tiZANidine 2 mg capsule 3-0 7-10 00:00: 00 Yes [id number] 2mg Take 1 capsule by mouth in the morning and 1 capsule at noon and 1 capsule in the evening. [facility] tiZANidine 2 mg capsule 3-0 7-10 00:00: 00 Yes [id number] 2mg Take 1 capsule by mouth in the morning and 1 capsule at noon and 1 capsule in the evening. [facility] tiZANidine 2 mg capsule 3-0 7-10 00:00: 00 Yes [id number] 2mg Take 1 capsule by mouth in the morning and 1 capsule at noon and 1 capsule in the evening. [facility] tiZANidine 2 mg capsule 3-0 7-10 00:00: 00 Yes [id number] 2mg Take 1 capsule by mouth in the morning and 1 capsule at noon and 1 capsule in the evening. [facility] tiZANidine 2 mg capsule 3-0 7-10 00:00: 00 Yes [id number] 2mg Take 1 capsule by mouth in the morning and 1 capsule at noon and 1 capsule in the evening. [facility] tiZANidine 2 mg capsule 3-0 7-10 00:00: 00 Yes [id number] 2mg Take 1 capsule by mouth in the morning and 1 capsule at noon and 1 capsule in the evening. [facility] tiZANidine 2 mg capsule 2023-0 7-10 00:00: 00 Yes [id number] 2mg Take 1 capsule by mouth in the morning and 1 capsule at noon and 1 capsule in the evening. [facility] tiZANidine 2 mg capsule 2023-0 7-10 00:00: 00 Yes [id number] 2mg Take 1 capsule by mouth in the morning and 1 capsule at noon and 1 capsule in the evening. [facility] tiZANidine 2 mg capsule 3-0 7-10 00:00: 00 Yes [id number] 2mg Take 1 capsule by mouth in the morning and 1 capsule at noon and 1 capsule in the evening. [facility] tiZANidine 2 mg capsule 3-0 7-10 00:00: 00 Yes [id number] 2mg Take 1 capsule by mouth in the morning and 1 capsule at noon and 1 capsule in the evening. [facility] tiZANidine 2 mg capsule 3-0 7-10 00:00: 00 Yes [id number] 2mg Take 1 capsule by mouth in the morning and 1 capsule at noon and 1 capsule in the evening. [facility] tiZANidine 2 mg capsule 2022-0 7-10 00:00: 00 Yes [id number] 2mg Take 1 capsule by mouth in the morning and 1 capsule at noon and 1 capsule in the evening. [facility] tiZANidine 2 mg capsule 2022-0 7-10 00:00: 00 02-17 00:00 :00 No [id number] 2mg Take 1 capsule by mouth in the morning and 1 capsule at noon and 1 capsule in the evening. [facility] tiZANidine 2 mg capsule 2022-0 7-10 00:00: 00 02-17 00:00 :00 No [id number] 2mg Take 1 capsule by mouth in the morning and 1 capsule at noon and 1 capsule in the evening. [facility] ibuprofen 800 mg tablet 2022-0 7-10 00:00: 00 12-09 04:59 :00 No [id number] 800mg Take 1 tablet by mouth every 6 (six) hours as needed for Pain (scale 4-6) for up to 14 days. [facility] ibuprofen 800 mg tablet 3-0 7-10 00:00: 00 12-09 04:59 :00 No [id number] 800mg Take 1 tablet by mouth every 6 (six) hours as needed for Pain (scale 4-6) for up to 14 days. [facility] ibuprofen 800 mg tablet 2022-0 7-10 00:00: 00 12-09 04:59 :00 No [id number] 800mg Take 1 tablet by mouth every 6 (six) hours as needed for Pain (scale 4-6) for up to 14 days. [facility] ibuprofen 800 mg tablet 2022-0 7-10 00:00: 00 12-09 04:59 :00 No [id number] 800mg Take 1 tablet by mouth every 6 (six) hours as needed for Pain (scale 4-6) for up to 14 days. [facility] metoprolol tartrate 25 mg tablet 0 10-15 00:00: 00 Yes [id number] 12.5mg Take 0.5 tablets by mouth in the morning. [facility] metoprolol tartrate 25 mg tablet 0 10-15 00:00: 00 Yes [id number] 12.5mg Take 0.5 tablets by mouth in the morning. [facility] metoprolol tartrate 25 mg tablet 0 10-15 00:00: 00 Yes [id number] 12.5mg Take 0.5 tablets by mouth in the morning. [facility] metoprolol tartrate 25 mg tablet 0 10-15 00:00: 00 Yes [id number] 12.5mg Take 0.5 tablets by mouth in the morning. [facility] metoprolol tartrate 25 mg tablet 0 10-15 00:00: 00 Yes [id number] 12.5mg Take 0.5 tablets by mouth in the morning. [facility] metoprolol tartrate 25 mg tablet 0 10-15 00:00: 00 Yes [id number] 12.5mg Take 0.5 tablets by mouth in the morning. [facility] ketorolac (TORADOL) injection 60 mg 2022-24 20:52: 00 09-08 20:56 :00 No [id number] 60mg [facility] ketorolac (TORADOL) injection 60 mg 2022-0 4-24 20:52: 00 09-08 20:56 :00 No [id number] 60mg 60 mg, Intramuscu lar, ONCE, 1 dose, On Thu09/08/22 at 1600, Routine [facility] naproxen 500 mg tablet 24 00:00: 00 09-19 04:59 :00 No [id number] 500mg Take 1 tablet by mouth 2 (two) times daily with meals as needed for Pain (scale 4-6) for up to 10 days. [facility] methocarbam oL 500 mg tablet 24 00:00: 00 09-14 04:59 :00 No [id number] 500mg Take 1 tablet by mouth 4 (four) times daily as needed for Pain (scale 7-10) for up to 5 days. [facility] clotrimazol e-betametha sone cream 06 00:00: 00 08-29 04:59 :00 No [id number] Apply to area(s) 2 (two) times daily for 7 days. [facility] clotrimazol e-betametha sone cream 08-21 00:00: 00 08-29 04:59 :00 No [id number] Apply to area(s) 2 (two) times daily for 7 days. [facility] iopamidol (ISOVUE 370-500 mL) injection 100 mL 08-15 17:30: 00 08-15 16:35 :00 No [id number] 100mL 100 mL, Intravenou s, ONCE, 1 dose, On Thu08/15/22 at 1230, Routine [facility] metroNIDAZO LE (FLAGYL) 500 mg tablet 3-13 00:00: 00 08-05 04:59 :00 No [id number] 500mg Take 1 tablet by mouth every 12 (twelve) hours for 7 days. [facility] fluconazole 150 mg tablet 3-09 00:00: 00 07-25 05:59 :00 No [id number] 150mg Take 1 tablet by mouth once now for 1 dose. May repeat dose in 3 days if needed [facility] fluconazole 150 mg tablet 3-0 3- 00:00: 00 07-25 05:59 :00 No [id number] 150mg Take 1 tablet by mouth once now for 1 dose. May repeat dose in 3 days if needed [facility] fluconazole 150 mg tablet 3-0 3 00:00: 00 07-25 05:59 :00 No [id number] 150mg Take 1 tablet by mouth once now for 1 dose. May repeat dose in 3 days if needed [facility] fluconazole 150 mg tablet 3-0 3 00:00: 00 07-25 05:59 :00 No [id number] 150mg Take 1 tablet by mouth once now for 1 dose. May repeat dose in 3 days if needed [facility] omeprazole 40 mg capsule 3-0 3- 00:00: 00 Yes 40mg Take 1 capsule by mouth in the morning. [facility] omeprazole 40 mg capsule 3-0 3- 00:00: 00 Yes 40mg Take 1 capsule by mouth in the morning. [facility] omeprazole 40 mg capsule 3-0 3- 00:00: 00 Yes 40mg Take 1 capsule by mouth in the morning. [facility] omeprazole 40 mg capsule 3-0 3- 00:00: 00 Yes 40mg Take 1 capsule by mouth in the morning. [facility] omeprazole 40 mg capsule 3-0 3-05 00:00: 00 Yes 40mg Take 1 capsule by mouth in the morning. [facility] omeprazole 40 mg capsule 3-0 3-05 00:00: 00 Yes 40mg Take 1 capsule by mouth in the morning. [facility] omeprazole 40 mg capsule 3-0 3-05 00:00: 00 Yes 40mg Take 1 capsule by mouth in the morning. [facility] omeprazole 40 mg capsule 3-0 3-05 00:00: 00 Yes 40mg Take 1 capsule by mouth in the morning. [facility] omeprazole 40 mg capsule 3-0 3-05 00:00: 00 Yes 40mg Take 1 capsule by mouth in the morning. [facility] 3-0 3-05 00:00: 00 Yes 40mg Take 1 capsule by mouth in the morning. [facility] [place] omeprazole 40 mg capsule 3-0 3-05 00:00: 00 Yes 40mg Take 1 capsule by mouth in the morning. [facility] om[facility] mg capsule 3-0 3-05 00:00: 00 Yes 40mg Take 1 capsule by mouth in the morning. [facility] omeprazole 40 mg capsule 3-0 3-05 00:00: 00 Yes 40mg Take 1 capsule by mouth in the morning. [facility] omeprazole 40 mg capsule 3-0 3-05 00:00: 00 Yes 40mg Take 1 capsule by mouth in the morning. [facility] omep[facility]ole 40 mg capsule 3-0 3-05 00:00: 00 Yes 40mg Take 1 capsule by mouth in the morning. [facility] omeprazole 40 mg capsule 3-0 3-05 00:00: 00 Yes 40mg Take 1 capsule by mouth in the morning. [facility] om[facility] 40 mg capsule 3-0 3-05 00:00: 00 Yes 40mg Take 1 capsule by mouth in the morning. [facility] omeprazole 40 mg capsule 3-0 3-05 00:00: 00 Yes 40mg Take 1 capsule by mouth in the morning. [facility] omeprazole 40 mg capsule 3-0 3-05 00:00: 00 Yes 40mg Take 1 capsule by mouth in the morning. [facility] om[facility] 40 mg capsule 3-0 3-05 00:00: 00 Yes 40mg Take 1 capsule by mouth in the morning. [facility] omeprazole 40 mg capsule 3-0 3-05 00:00: 00 Yes 40mg Take 1 capsule by mouth in the morning. [facility] omep[facility]ole 40 mg capsule 2023-0 3-05 00:00: 00 Yes 40mg Take 1 capsule by mouth in the morning. [facility] om[facility]ole 40 mg capsule 3-0 3-05 00:00: 00 Yes 40mg Take 1 capsule by mouth in the morning. [facility] omep[facility]ole 40 mg capsule 3-0 3-05 00:00: 00 Yes 40mg Take 1 capsule by mouth in the morning. [facility] omep[facility]ole 40 mg capsule 3-0 3-05 00:00: 00 Yes 40mg Take 1 capsule by mouth in the morning. [facility] omep[facility]ole 40 mg capsule 3-0 3-05 00:00: 00 Yes 40mg Take 1 capsule by mouth in the morning. [facility] om[facility] 40 mg capsule 3-0 3-05 00:00: 00 Yes 40mg Take 1 capsule by mouth in the morning. [facility] omeprazole 40 mg capsule 3-0 3-05 00:00: 00 Yes 40mg Take 1 capsule by mouth in the morning. [facility] omeprazole 40 mg capsule 3-0 3-05 00:00: 00 Yes 40mg Take 1 capsule by mouth in the morning. [facility] omeprazole 40 mg capsule 3-0 3-05 00:00: 00 Yes 40mg Take 1 capsule by mouth in the morning. [facility] omeprazole 40 mg capsule 3-0 3-05 00:00: 00 Yes 40mg Take 1 capsule by mouth in the morning. [facility] omeprazole 40 mg capsule 3-0 3-05 00:00: 00 Yes 40mg Take 1 capsule by mouth in the morning. [facility] omeprazole 40 mg capsule 3-0 3-05 00:00: 00 Yes 40mg Take 1 capsule by mouth in the morning. [facility] omeprazole 40 mg capsule 3-0 3-05 00:00: 00 Yes 40mg Take 1 capsule by mouth in the morning. [facility] omeprazole 40 mg capsule 3-0 3-05 00:00: 00 Yes 40mg Take 1 capsule by mouth in the morning. [facility] omeprazole 40 mg capsule 2023-0 3-05 00:00: 00 Yes 40mg Take 1 capsule by mouth in the morning. [facility] omeprazole 40 mg capsule 3-0 3-05 00:00: 00 Yes 40mg Take 1 capsule by mouth in the morning. [facility] omeprazole 40 mg capsule 3-0 3-05 00:00: 00 Yes 40mg Take 1 capsule by mouth in the morning. [facility] omeprazole 40 mg capsule 3-0 3-05 00:00: 00 Yes 40mg Take 1 capsule by mouth in the morning. [facility] omeprazole 40 mg capsule 3-0 3-05 00:00: 00 Yes 40mg Take 1 capsule by mouth in the morning. [facility] omeprazole 40 mg capsule 3-0 3-05 00:00: 00 Yes 40mg Take 1 capsule by mouth in the morning. [facility] omeprazole 40 mg capsule 3-0 3-05 00:00: 00 Yes 40mg Take 1 capsule by mouth in the morning. [facility] omeprazole 40 mg capsule 3-0 3-05 00:00: 00 Yes 40mg Take 1 capsule by mouth in the morning. [facility] omeprazole 40 mg capsule 3-0 3-05 00:00: 00 Yes 40mg Take 1 capsule by mouth in the morning. [facility] omeprazole 40 mg capsule 3-0 3-05 00:00: 00 Yes 40mg Take 1 capsule by mouth in the morning. [facility] omeprazole 40 mg capsule 3-0 3-05 00:00: 00 Yes 40mg Take 1 capsule by mouth in the morning. [facility] omeprazole 40 mg capsule 3-0 3-05 00:00: 00 Yes 40mg Take 1 capsule by mouth in the morning. [facility] omeprazole 40 mg capsule 3-0 3-05 00:00: 00 Yes 40mg Take 1 capsule by mouth in the morning. [facility] omeprazole 40 mg capsule 3-0 3-05 00:00: 00 Yes 40mg Take 1 capsule by mouth in the morning. [facility] fluconazole (DIFLUCAN) 150 mg tablet 2022-0 3 00:00: 00 07-18 05:59 :00 No [id number] 150mg Take 1 tablet by mouth once now for 1 dose. [facility] metroNIDAZO LE 500 mg tablet 2-16 00:00: 00 07-11 05:59 :00 No [id number] 500mg Take 1 tablet by mouth in the morning and 1 tablet in the evening. Do all this for 7 days. [facility] clotrimazol e-betametha sone cream 214 00:00: 00 07-16 05:59 :00 No [id number] Apply to area(s) 2 (two) times daily for 14 days. [facility] clotrimazol e-betametha sone cream 214 00:00: 00 07-16 05:59 :00 No [id number] Apply to area(s) 2 (two) times daily for 14 days. [facility] clotrimazol e-betametha sone cream 214 00:00: 00 07-16 05:59 :00 No [id number] Apply to area(s) 2 (two) times daily for 14 days. [facility] clotrimazol e-betametha sone cream 214 00:00: 00 07-16 05:59 :00 No [id number] Apply to area(s) 2 (two) times daily for 14 days. [facility] clotrimazol e-betametha sone cream 214 00:00: 00 07-16 05:59 :00 No [id number] Apply to area(s) 2 (two) times daily for 14 days. [facility] fluconazole 200 mg tablet 2-14 00:00: 00 07-02 05:59 :00 No [id number] 200mg Take 1 tablet by mouth once now for 1 dose. [facility] fluconazole 200 mg tablet 2-14 00:00: 00 07-02 05:59 :00 No [id number] 200mg Take 1 tablet by mouth once now for 1 dose. [facility] fluconazole 200 mg tablet 2-14 00:00: 00 07-02 05:59 :00 No [id number] 200mg Take 1 tablet by mouth once now for 1 dose. [facility] fluconazole 200 mg tablet 2-14 00:00: 00 07-02 05:59 :00 No [id number] 200mg Take 1 tablet by mouth once now for 1 dose. [facility] METOPROLOL TARTRATE 25 mg tablet 2-08 00:00: 00 Yes [id number] Take 1/2 (one-half) tablet by mouth once daily [facility] METOPROLOL TARTRATE 25 mg tablet 0 2-08 00:00: 00 Yes [id number] Take 1/2 (one-half) tablet by mouth once daily [facility] METOPROLOL TARTRATE 25 mg tablet 0 -08 00:00: 00 Yes [id number] Take 1/2 (one-half) tablet by mouth once daily [facility] METOPROLOL TARTRATE 25 mg tablet 0 2-08 00:00: 00 Yes [id number] Take 1/2 (one-half) tablet by mouth once daily [facility] METOPROLOL TARTRATE 25 mg tablet 0 2-08 00:00: 00 Yes [id number] Take 1/2 (one-half) tablet by mouth once daily [facility] METOPROLOL TARTRATE 25 mg tablet 0 2-08 00:00: 00 Yes [id number] Take 1/2 (one-half) tablet by mouth once daily [facility] METOPROLOL TARTRATE 25 mg tablet 0 2-08 00:00: 00 Yes [id number] Take 1/2 (one-half) tablet by mouth once daily [facility] METOPROLOL TARTRATE 25 mg tablet 0 2-08 00:00: 00 Yes [id number] Take 1/2 (one-half) tablet by mouth once daily [facility] METOPROLOL TARTRATE 25 mg tablet 0 2-08 00:00: 00 Yes [id number] Take 1/2 (one-half) tablet by mouth once daily [facility] METOPROLOL TARTRATE 25 mg tablet 2-08 00:00: 00 Yes [id number] Take 1/2 (one-half) tablet by mouth once daily [facility] METOPROLOL TARTRATE 25 mg tablet 2-08 00:00: 00 Yes [id number] Take 1/2 (one-half) tablet by mouth once daily [facility] METOPROLOL TARTRATE 25 mg tablet 2-08 00:00: 00 Yes [id number] Take 1/2 (one-half) tablet by mouth once daily [facility] METOPROLOL TARTRATE 25 mg tablet 2-08 00:00: 00 Yes [id number] Take 1/2 (one-half) tablet by mouth once daily [facility] METOPROLOL TARTRATE 25 mg tablet 2-08 00:00: 00 Yes [id number] Take 1/2 (one-half) tablet by mouth once daily [facility] METOPROLOL TARTRATE 25 mg tablet 2-08 00:00: 00 Yes [id number] Take 1/2 (one-half) tablet by mouth once daily [facility] METOPROLOL TARTRATE 25 mg tablet 2-08 00:00: 00 Yes [id number] Take 1/2 (one-half) tablet by mouth once daily [facility] METOPROLOL TARTRATE 25 mg tablet 2-08 00:00: 00 Yes [id number] Take 1/2 (one-half) tablet by mouth once daily [facility] METOPROLOL TARTRATE 25 mg tablet 2-08 00:00: 00 Yes [id number] Take 1/2 (one-half) tablet by mouth once daily [facility] METOPROLOL TARTRATE 25 mg tablet 2-08 00:00: 00 10-15 00:00 :00 No [id number] Take 1/2 (one-half) tablet by mouth once daily [facility] miconazole 100 mg vaginal suppository 7-06 00:00: 00 Yes [id number] 100mg Insert 1 Suppositor y into vagina at bedtime. [facility] miSOPROStoL 200 mcg tablet 2021-0 11-20 00:00: 00 Yes [id number] Take one tablet night before procedure, then take one tablet morning of procedure [facility] miconazole 100 mg vaginal suppository 0 11-20 00:00: 00 Yes [id number] 100mg Insert 1 Suppositor y into vagina at bedtime. [facility] miSOPROStoL 200 mcg tablet 2021-0 11-20 00:00: 00 Yes [id number] Take one tablet night before procedure, then take one tablet morning of procedure [facility] miconazole 100 mg vaginal suppository 2021-0 11-20 00:00: 00 Yes [id number] 100mg Insert 1 Suppositor y into vagina at bedtime. [facility] miSOPROStoL 200 mcg tablet 2021-0 11-20 00:00: 00 Yes [id number] Take one tablet night before procedure, then take one tablet morning of procedure [facility] miconazole 100 mg vaginal suppository 2021-0 11-20 00:00: 00 Yes [id number] 100mg Insert 1 Suppositor y into vagina at bedtime. [facility] miSOPROStoL 200 mcg tablet 2021-0 11-20 00:00: 00 Yes [id number] Take one tablet night before procedure, then take one tablet morning of procedure [facility] miconazole 100 mg vaginal suppository 2021-0 11-20 00:00: 00 Yes [id number] 100mg Insert 1 Suppositor y into vagina at bedtime. [facility] miSOPROStoL 200 mcg tablet 2021-0 11-20 00:00: 00 Yes [id number] Take one tablet night before procedure, then take one tablet morning of procedure [facility] miconazole 100 mg vaginal suppository 2021-0 11-20 00:00: 00 Yes [id number] 100mg Insert 1 Suppositor y into vagina at bedtime. [facility] miSOPROStoL 200 mcg tablet 2021-0 11-20 00:00: 00 Yes [id number] Take one tablet night before procedure, then take one tablet morning of procedure [facility] miconazole 100 mg vaginal suppository 2021-11-20 00:00: 00 07-01 00:00 :00 No [id number] 100mg Insert 1 Suppositor y into vagina at bedtime. [facility] miSOPROStoL 200 mcg tablet 11-20 00:00: 00 07-01 00:00 :00 No [id number] Take one tablet night before procedure, then take one tablet morning of procedure [facility] miconazole 100 mg vaginal suppository 11-20 00:00: 00 07-01 00:00 :00 No [id number] 100mg Insert 1 Suppositor y into vagina at bedtime. [facility] miSOPROStoL 200 mcg tablet 11-20 00:00: 00 07-01 00:00 :00 No [id number] Take one tablet night before procedure, then take one tablet morning of procedure [facility] miconazole 100 mg vaginal suppository 11-20 00:00: 00 07-01 00:00 :00 No [id number] 100mg Insert 1 Suppositor y into vagina at bedtime. [facility] miSOPROStoL 200 mcg tablet 11-20 00:00: 00 07-01 00:00 :00 No [id number] Take one tablet night before procedure, then take one tablet morning of procedure [facility] miconazole 100 mg vaginal suppository 11-20 00:00: 00 07-01 00:00 :00 No [id number] 100mg Insert 1 Suppositor y into vagina at bedtime. [facility] miSOPROStoL 200 mcg tablet 11-20 00:00: 00 07-01 00:00 :00 No [id number] Take one tablet night before procedure, then take one tablet morning of procedure [facility] fluconazole 150 mg tablet 11-04 00:00: 00 Yes [id number] 150mg Take 1 tablet by mouth every 72 (seventy-t wo) hours. [facility] fluconazole 150 mg tablet 11-04 00:00: 00 Yes [id number] 150mg Take 1 tablet by mouth every 72 (seventy-t wo) hours. [facility] fluconazole 150 mg tablet 2021-0 6-20 00:00: 00 Yes [id number] 150mg Take 1 tablet by mouth every 72 (seventy-t wo) hours. [facility] fluconazole 150 mg tablet 2-0 6-20 00:00: 00 Yes [id number] 150mg Take 1 tablet by mouth every 72 (seventy-t wo) hours. [facility] fluconazole 150 mg tablet 2021-0 6-20 00:00: 00 Yes [id number] 150mg Take 1 tablet by mouth every 72 (seventy-t wo) hours. [facility] fluconazole 150 mg tablet 2021-0 6-20 00:00: 00 Yes [id number] 150mg Take 1 tablet by mouth every 72 (seventy-t wo) hours. [facility] fluconazole 150 mg tablet 2021-0 6-20 00:00: 00 07-01 00:00 :00 No [id number] 150mg Take 1 tablet by mouth every 72 (seventy-t wo) hours. [facility] fluconazole 150 mg tablet 2021-0 6-20 00:00: 00 07-01 00:00 :00 No [id number] 150mg Take 1 tablet by mouth every 72 (seventy-t wo) hours. [facility] fluconazole 150 mg tablet 2021-0 6-20 00:00: 00 07-01 00:00 :00 No [id number] 150mg Take 1 tablet by mouth every 72 (seventy-t wo) hours. [facility] fluconazole 150 mg tablet 2021-0 6-20 00:00: 00 07-01 00:00 :00 No [id number] 150mg Take 1 tablet by mouth every 72 (seventy-t wo) hours. [facility] metoprolol tartrate 25 mg tablet 0 - 00:00: 00 Yes [id number] 12.5mg Take 0.5 tablets by mouth daily. [facility] metoprolol tartrate 25 mg tablet 0 - 00:00: 00 Yes [id number] 12.5mg Take 0.5 tablets by mouth daily. [facility] metoprolol tartrate 25 mg tablet 09-17 00:00: 00 Yes [id number] 12.5mg Take 0.5 tablets by mouth daily. [facility] metoprolol tartrate 25 mg tablet 09-17 00:00: 00 Yes [id number] 12.5mg Take 0.5 tablets by mouth daily. [facility] metoprolol tartrate 25 mg tablet 09-17 00:00: 00 06-25 00:00 :00 No [id number] 12.5mg Take 0.5 tablets by mouth daily. [facility] ferrous sulfate 324 mg (65 mg iron) EC tablet 06-12 00:00: 00 Yes [id number] 324mg Take 1 tablet by mouth 2 (two) times daily with meals. [facility] ferrous sulfate 324 mg (65 mg iron) EC tablet 06-12 00:00: 00 Yes [id number] 324mg Take 1 tablet by mouth 2 (two) times daily with meals. [facility] ferrous sulfate 324 mg (65 mg iron) EC tablet 06-12 00:00: 00 Yes [id number] 324mg Take 1 tablet by mouth 2 (two) times daily with meals. [facility] ferrous sulfate 324 mg (65 mg iron) EC tablet 06-12 00:00: 00 Yes [id number] 324mg Take 1 tablet by mouth 2 (two) times daily with meals. [facility] ferrous sulfate 324 mg (65 mg iron) EC tablet 06-12 00:00: 00 Yes [id number] 324mg Take 1 tablet by mouth 2 (two) times daily with meals. [facility] ferrous sulfate 324 mg (65 mg iron) EC tablet 06-12 00:00: 00 Yes [id number] 324mg Take 1 tablet by mouth 2 (two) times daily with meals. [facility] ferrous sulfate 324 mg (65 mg iron) EC tablet 06-12 00:00: 00 07-01 00:00 :00 No [id number] 324mg Take 1 tablet by mouth 2 (two) times daily with meals. [facility] ferrous sulfate 324 mg (65 mg iron) EC tablet 06-12 00:00: 00 07-01 00:00 :00 No [id number] 324mg Take 1 tablet by mouth 2 (two) times daily with meals. [facility] ferrous sulfate 324 mg (65 mg iron) EC tablet 06-12 00:00: 00 07-01 00:00 :00 No [id number] 324mg Take 1 tablet by mouth 2 (two) times daily with meals. [facility] ferrous sulfate 324 mg (65 mg iron) EC tablet 06-12 00:00: 00 07-01 00:00 :00 No [id number] 324mg Take 1 tablet by mouth 2 (two) times daily with meals. [facility] ferrous sulfate 324 mg (65 mg iron) EC tablet 06-12 00:00: 00 07-01 00:00 :00 No [id number] 324mg Take 1 tablet by mouth 2 (two) times daily with meals. [facility] METOPROLOL TARTRATE 25 mg tablet 720 00:00: 00 05-30 00:00 :00 No [id number] TAKE 1/2 TABLET BY MOUTH EVERY DAY [facility] naproxen (NAPROSYN) 500 mg tablet 8-22 00:00: 00 05-30 00:00 :00 No [id number] 104 500mg Take 1 tablet by mouth 2 (two) times daily with meals. [facility] omeprazole 40 mg capsule 09-16 00:00: 00 Yes [facility] omeprazole 40 mg capsule 09-16 00:00: 00 Yes [facility] omeprazole 40 mg capsule 09-16 00:00: 00 Yes [facility] omeprazole 40 mg capsule 09-16 00:00: 00 Yes [facility] omeprazole 40 mg capsule 09-16 00:00: 00 Yes [facility] omeprazole 40 mg capsule 0 09-16 00:00: 00 Yes [facility] omeprazole 40 mg capsule 0 5- 00:00: 00 07-01 00:00 :00 No [facility] omeprazole 40 mg capsule 0 5- 00:00: 00 07-01 00:00 :00 No [facility] omeprazole 40 mg capsule 0 5 00:00: 00 07-01 00:00 :00 No [facility] omeprazole 40 mg capsule 0 5 00:00: 00 07-01 00:00 :00 No [facility] omeprazole 40 mg capsule 0 09-16 00:00: 00 07-01 00:00 :00 No [facility] omeprazole 40 mg capsule 0 09-16 00:00: 00 07-01 00:00 :[address] [facility] Immunizations Ordered Immunization Name Filled Immunization Name Date Status Comments Source Influenza Virus Vaccine Recomb Quad IM, Preserv and ABX Free 64 2022-04-23 00:00:00 Completed [facility] Influenza Virus Vaccine Recomb Quad IM, Preserv and ABX Free 2022-04-23 00:00:00 Completed [facility] Influenza Virus Vaccine Recomb Quad IM, Preserv and ABX Free 64 2022-04-23 00:00:00 Completed [facility] Influenza Virus Vaccine Recomb Quad IM, Preserv and ABX Free 64 2022-04-23 00:00:00 Completed [facility] Influenza Virus Vaccine Recomb Quad IM, Preserv and ABX Free 64 2022-04-23 00:00:00 Completed [facility] Influenza Virus Vaccine Recomb Quad IM, Preserv and ABX Free 2022-04-23 00:00:00 Completed [facility] Influenza Virus Vaccine Recomb Quad IM, Preserv and ABX Free 64 2022-04-23 00:00:00 Completed [facility] Influenza Virus Vaccine Recomb Quad IM, Preserv and ABX Free YRS 2022-04-23 00:00:00 Completed [facility] Influenza Virus Vaccine Recomb Quad IM, Preserv and ABX Free 18-64 YRS 2022-04-23 00:00:00 Completed [facility] Influenza Virus Vaccine Recomb Quad IM, Preserv and ABX Free 18-64 YRS 2022-04-23 00:00:00 Completed [facility] Influenza Virus Vaccine Recomb Quad IM, Preserv and ABX Free 18-64 YRS 2022-04-23 00:00:00 Completed [facility] Influenza Virus Vaccine Recomb Quad IM, Preserv and ABX Free 18-64 YRS 2022-04-23 00:00:00 Completed [facility] Influenza Virus Vaccine Recomb Quad IM, Preserv and ABX Free 18-64 YRS 2022-04-23 00:00:00 Completed [facility] Influenza Virus Vaccine Recomb Quad IM, Preserv and ABX Free 18-64 YRS 2022-04-23 00:00:00 Completed [facility] Influenza Virus Vaccine Recomb Quad IM, Preserv and ABX Free -64 YRS 2022-04-23 00:00:00 Completed [facility] Influenza Virus Vaccine Recomb Quad IM, Preserv and ABX Free 18-64 YRS 2022-04-23 00:00:00 Completed [facility] Influenza Virus Vaccine Recomb Quad IM, Preserv and ABX Free -64 YRS 2022-04-23 00:00:00 Completed [facility] Influenza Virus Vaccine Recomb Quad IM, Preserv and ABX Free 18-64 YRS 2022-04-23 00:00:00 Completed [facility] Influenza Virus Vaccine Recomb Quad IM, Preserv and ABX Free 18-64 YRS 2022-04-23 00:00:00 Completed [facility] Influenza Virus Vaccine Recomb Quad IM, Preserv and ABX Free -64 YRS 2022-04-23 00:00:00 Completed [facility] Influenza Virus Vaccine Recomb Quad IM, Preserv and ABX Free 18-64 YRS 2022-04-23 00:00:00 Completed [facility] Influenza Virus Vaccine Recomb Quad IM, Preserv and ABX Free 18-64 YRS 2022-04-23 00:00:00 Completed [facility] Influenza Virus Vaccine Recomb Quad IM, Preserv and ABX Free 18-64 YRS 2022-04-23 00:00:00 Completed [facility] Influenza Virus Vaccine Recomb Quad IM, Preserv and ABX Free 18-64 YRS 2022-04-23 00:00:00 Completed [facility] Influenza Virus Vaccine Recomb Quad IM, Preserv and ABX Free 18-64 YRS 2022-04-23 00:00:00 Completed [facility] Influenza Virus Vaccine Recomb Quad IM, Preserv and ABX Free 18-64 YRS 2022-04-23 00:00:00 Completed [facility] Influenza Virus Vaccine Recomb Quad IM, Preserv and ABX Free 18-64 YRS 2022-04-23 00:00:00 Completed [facility] Influenza Virus Vaccine Recomb Quad IM, Preserv and ABX Free 18-64 YRS 2022-04-23 00:00:00 Completed [facility] SARS-COV-2 COVID-19 MODERNA 12+ YRS VACCINE 2021-05-27 00:00:00 Completed [facility] SARS-COV-2 COVID-19 MODERNA 12+ YRS VACCINE 2021-05-27 00:00:00 Completed [facility] SARS-COV-2 COVID-19 MODERNA 12+ YRS VACCINE 2021-05-27 00:00:00 Completed [facility] SARS-COV-2 COVID-19 MODERNA 12+ YRS VACCINE 2021-05-27 00:00:00 Completed [facility] SARS-COV-2 COVID-19 MODERNA 12+ YRS VACCINE 2021-05-27 00:00:00 Completed [facility] SARS-COV-2 COVID-19 MODERNA 12+ YRS VACCINE 2021-05-27 00:00:00 Completed [facility] SARS-COV-2 COVID-19 MODERNA 12+ YRS VACCINE 2021-05-27 00:00:00 Completed [facility] SARS-COV-2 COVID-19 MODERNA 12+ YRS VACCINE 2021-05-27 00:00:00 Completed [facility] SARS-COV-2 COVID-19 MODERNA 12+ YRS VACCINE 2021-05-27 00:00:00 Completed [facility] SARS-COV-2 COVID-19 MODERNA 12+ YRS VACCINE 2021-05-27 00:00:00 Completed [facility] SARS-COV-2 COVID-19 MODERNA 12+ YRS VACCINE 2021-05-27 00:00:00 Completed [facility] SARS-COV-2 COVID-19 MODERNA 12+ YRS VACCINE 2021-05-27 00:00:00 Completed [facility] SARS-COV-2 COVID-19 MODERNA 12+ YRS VACCINE 2021-05-27 00:00:00 Completed [facility] SARS-COV-2 COVID-19 MODERNA 12+ YRS VACCINE 2021-05-27 00:00:00 Completed [facility] SARS-COV-2 COVID-19 MODERNA 12+ YRS VACCINE 2021-05-27 00:00:00 Completed [facility] SARS-COV-2 COVID-19 MODERNA 12+ YRS VACCINE 2021-05-27 00:00:00 Completed [facility] SARS-COV-2 COVID-19 MODERNA 12+ YRS VACCINE 2021-05-27 00:00:00 Completed [facility] SARS-COV-2 COVID-19 MODERNA 12+ YRS VACCINE 2021-05-27 00:00:00 Completed [facility] SARS-COV-2 COVID-19 MODERNA 12+ YRS VACCINE 2021-05-27 00:00:00 Completed [facility] SARS-COV-2 COVID-19 MODERNA 12+ YRS VACCINE 2021-05-27 00:00:00 Completed [facility] SARS-COV-2 COVID-19 MODERNA 12+ YRS VACCINE 2021-05-27 00:00:00 Completed [facility] SARS-COV-2 COVID-19 MODERNA 12+ YRS VACCINE 2021-05-27 00:00:00 Completed [facility] SARS-COV-2 COVID-19 MODERNA 12+ YRS VACCINE 2021-05-27 00:00:00 Completed [facility] SARS-COV-2 COVID-19 MODERNA 12+ YRS VACCINE 2021-05-27 00:00:00 Completed [facility] SARS-COV-2 COVID-19 MODERNA 12+ YRS VACCINE 2021-05-27 00:00:00 Completed [facility] SARS-COV-2 COVID-19 MODERNA 12+ YRS VACCINE 2021-05-27 00:00:00 Completed [facility] SARS-COV-2 COVID-19 MODERNA 12+ YRS VACCINE 2021-05-27 00:00:00 Completed [facility] SARS-COV-2 COVID-19 MODERNA 12+ YRS VACCINE 2021-05-27 00:00:00 Completed [facility] SARS-COV-2 COVID-19 MODERNA 12+ YRS VACCINE 2021-05-27 00:00:00 Completed [facility] SARS-COV-2 COVID-19 MODERNA 12+ YRS VACCINE 2021-05-27 00:00:00 Completed [facility] SARS-COV-2 COVID-19 MODERNA 12+ YRS VACCINE 2021-05-27 00:00:00 Completed [facility] SARS-COV-2 COVID-19 MODERNA 12+ YRS VACCINE 2020-12-18 00:00:00 Completed [facility] SARS-COV-2 COVID-19 MODERNA 12+ YRS VACCINE 2020-12-18 00:00:00 Completed [facility] SARS-COV-2 COVID-19 MODERNA 12+ YRS VACCINE 2020-12-18 00:00:00 Completed [facility] SARS-COV-2 COVID-19 MODERNA 12+ YRS VACCINE 2020-12-18 00:00:00 Completed [facility] SARS-COV-2 COVID-19 MODERNA 12+ YRS VACCINE 2020-12-18 00:00:00 Completed [facility] SARS-COV-2 COVID-19 MODERNA 12+ YRS VACCINE 2020-12-18 00:00:00 Completed [facility] SARS-COV-2 COVID-19 MODERNA 12+ YRS VACCINE 2020-12-18 00:00:00 Completed [facility] SARS-COV-2 COVID-19 MODERNA 12+ YRS VACCINE 2020-12-18 00:00:00 Completed [facility] SARS-COV-2 COVID-19 MODERNA 12+ YRS VACCINE 2020-12-18 00:00:00 Completed [facility] SARS-COV-2 COVID-19 MODERNA 12+ YRS VACCINE 2020-12-18 00:00:00 Completed [facility] SARS-COV-2 COVID-19 MODERNA 12+ YRS VACCINE 2020-12-18 00:00:00 Completed [facility] SARS-COV-2 COVID-19 MODERNA 12+ YRS VACCINE 2020-12-18 00:00:00 Completed [facility] SARS-COV-2 COVID-19 MODERNA 12+ YRS VACCINE 2020-12-18 00:00:00 Completed [facility] SARS-COV-2 COVID-19 MODERNA 12+ YRS VACCINE 2020-12-18 00:00:00 Completed [facility] SARS-COV-2 COVID-19 MODERNA 12+ YRS VACCINE 2020-12-18 00:00:00 Completed [facility] SARS-COV-2 COVID-19 MODERNA 12+ YRS VACCINE 2020-12-18 00:00:00 Completed [facility] SARS-COV-2 COVID-19 MODERNA 12+ YRS VACCINE 2020-12-18 00:00:00 Completed [facility] SARS-COV-2 COVID-19 MODERNA 12+ YRS VACCINE 2020-12-18 00:00:00 Completed [facility] SARS-COV-2 COVID-19 MODERNA 12+ YRS VACCINE 2020-12-18 00:00:00 Completed [facility] SARS-COV-2 COVID-19 MODERNA 12+ YRS VACCINE 2020-12-18 00:00:00 Completed [facility] SARS-COV-2 COVID-19 MODERNA 12+ YRS VACCINE 2020-12-18 00:00:00 Completed [facility] SARS-COV-2 COVID-19 MODERNA 12+ YRS VACCINE 2020-12-18 00:00:00 Completed [facility] SARS-COV-2 COVID-19 MODERNA 12+ YRS VACCINE 2020-12-18 00:00:00 Completed [facility] SARS-COV-2 COVID-19 MODERNA 12+ YRS VACCINE 2020-12-18 00:00:00 Completed [facility] SARS-COV-2 COVID-19 MODERNA 12+ YRS VACCINE 2020-12-18 00:00:00 Completed [facility] SARS-COV-2 COVID-19 MODERNA 12+ YRS VACCINE 2020-12-18 00:00:00 Completed [facility] SARS-COV-2 COVID-19 MODERNA 12+ YRS VACCINE 2020-12-18 00:00:00 Completed [facility] SARS-COV-2 COVID-19 MODERNA 12+ YRS VACCINE 2020-12-18 00:00:00 Completed [facility] SARS-COV-2 COVID-19 MODERNA 12+ YRS VACCINE 2020-12-18 00:00:00 Completed [facility] SARS-COV-2 COVID-19 MODERNA 12+ YRS VACCINE 2020-12-18 00:00:00 Completed [facility] SARS-COV-2 COVID-19 MODERNA 12+ YRS VACCINE 2020-12-18 00:00:00 Completed [facility] Influenza Virus Vaccine Quad .5 mL IM 6+ MO 2020-05-30 00:00:00 Completed [facility] Influenza Virus Vaccine Quad .5 mL IM 6+ MO 2020-05-30 00:00:00 Completed [facility] Influenza Virus Vaccine Quad .5 mL IM 6+ MO 2020-05-30 00:00:00 Completed [facility] Influenza Virus Vaccine Quad .5 mL IM 6+ MO 2020-05-30 00:00:00 Completed [facility] Influenza Virus Vaccine Quad .5 mL IM 6+ MO 2020-05-30 00:00:00 Completed [facility] Influenza Virus Vaccine Quad .5 mL IM 6+ MO 2020-05-30 00:00:00 Completed [facility] Influenza Virus Vaccine Quad .5 mL IM 6+ MO 2020-05-30 00:00:00 Completed [facility] Influenza Virus Vaccine Quad .5 mL IM 6+ MO 2020-05-30 00:00:00 Completed [facility] Influenza Virus Vaccine Quad .5 mL IM 6+ MO 2020-05-30 00:00:00 Completed [facility] Influenza Virus Vaccine Quad .5 mL IM 6+ MO 2020-05-30 00:00:00 Completed [facility] Influenza Virus Vaccine Quad .5 mL IM 6+ MO 2020-05-30 00:00:00 Completed [facility] Influenza Virus Vaccine Quad .5 mL IM 6+ MO 2020-05-30 00:00:00 Completed [facility] Influenza Virus Vaccine Quad .5 mL IM 6+ MO 2020-05-30 00:00:00 Completed [facility] Influenza Virus Vaccine Quad .5 mL IM 6+ MO 2020-05-30 00:00:00 Completed [facility] Influenza Virus Vaccine Quad .5 mL IM 6+ MO 2020-05-30 00:00:00 Completed [facility] Influenza Virus Vaccine Quad .5 mL IM 6+ MO 2020-05-30 00:00:00 Completed [facility] Influenza Virus Vaccine Quad .5 mL IM 6+ MO 2020-05-30 00:00:00 Completed [facility] Influenza Virus Vaccine Quad .5 mL IM 6+ MO 2020-05-30 00:00:00 Completed [facility] Influenza Virus Vaccine Quad .5 mL IM 6+ MO 2020-05-30 00:00:00 Completed [facility] Influenza Virus Vaccine Quad .5 mL IM 6+ MO 2020-05-30 00:00:00 Completed [facility] Influenza Virus Vaccine Quad .5 mL IM 6+ MO 2020-05-30 00:00:00 Completed [facility] Influenza Virus Vaccine Quad .5 mL IM 6+ MO 2020-05-30 00:00:00 Completed [facility] Influenza Virus Vaccine Quad .5 mL IM 6+ MO 2020-05-30 00:00:00 Completed [facility] Influenza Virus Vaccine Quad .5 mL IM 6+ MO 2020-05-30 00:00:00 Completed [facility] Influenza Virus Vaccine Quad .5 mL IM 6+ MO 2020-05-30 00:00:00 Completed [facility] Influenza Virus Vaccine Quad .5 mL IM 6+ MO 2020-05-30 00:00:00 Completed [facility] Influenza Virus Vaccine Quad .5 mL IM 6+ MO 2020-05-30 00:00:00 Completed [facility] Influenza Virus Vaccine Quad .5 mL IM 6+ MO 2020-05-30 00:00:00 Completed [facility] Influenza Virus Vaccine Quad .5 mL IM 6+ MO 2020-05-30 00:00:00 Completed [facility] Influenza Virus Vaccine Quad .5 mL IM 6+ MO 2020-05-30 00:00:00 Completed [facility] Influenza Virus Vaccine Quad .5 mL IM 6+ MO 2020-05-30 00:00:00 Completed [facility] Influenza Virus Vaccine Quad .5 mL IM 6+ MO (FLUZONE/FLULAVAL/F LUARIX) 2020-05-30 00:00:00 Completed [facility] Influenza Virus Vaccine Quad .5 mL IM 6+ MO (FLUZONE/FLULAVAL/F LUARIX) 2020-05-30 00:00:00 Completed [facility] Influenza Virus Vaccine Quad .5 mL IM 6+ MO (FLUZONE/FLULAVAL/F LUARIX) 2020-05-30 00:00:00 Completed [facility] Influenza Virus Vaccine Quad .5 mL IM 6+ MO 2018-04-19 00:00:00 Completed [facility] Influenza Virus Vaccine Quad .5 mL IM 6+ MO 2018-04-19 00:00:00 Completed [facility] Influenza Virus Vaccine Quad .5 mL IM 6+ MO 2018-04-19 00:00:00 Completed [facility] Influenza Virus Vaccine Quad .5 mL IM 6+ MO 2018-04-19 00:00:00 Completed [facility] Influenza Virus Vaccine Quad .5 mL IM 6+ MO 2018-04-19 00:00:00 Completed [facility] Influenza Virus Vaccine Quad .5 mL IM 6+ MO 2018-04-19 00:00:00 Completed [facility] Influenza Virus Vaccine Quad .5 mL IM 6+ MO 2018-04-19 00:00:00 Completed [facility] Influenza Virus Vaccine Quad .5 mL IM 6+ MO 2018-04-19 00:00:00 Completed [facility] Influenza Virus Vaccine Quad .5 mL IM 6+ MO 2018-04-19 00:00:00 Completed [facility] Influenza Virus Vaccine Quad .5 mL IM 6+ MO 2018-04-19 00:00:00 Completed [facility] Influenza Virus Vaccine Quad .5 mL IM 6+ MO 2018-04-19 00:00:00 Completed [facility] Influenza Virus Vaccine Quad .5 mL IM 6+ MO 2018-04-19 00:00:00 Completed [facility] Influenza Virus Vaccine Quad .5 mL IM 6+ MO 2018-04-19 00:00:00 Completed [facility] Influenza Virus Vaccine Quad .5 mL IM 6+ MO 2018-04-19 00:00:00 Completed [facility] Influenza Virus Vaccine Quad .5 mL IM 6+ MO 2018-04-19 00:00:00 Completed [facility] Influenza Virus Vaccine Quad .5 mL IM 6+ MO 2018-04-19 00:00:00 Completed [facility] Influenza Virus Vaccine Quad .5 mL IM 6+ MO 2018-04-19 00:00:00 Completed [facility] Influenza Virus Vaccine Quad .5 mL IM 6+ MO 2018-04-19 00:00:00 Completed [facility] Influenza Virus Vaccine Quad .5 mL IM 6+ MO 2018-04-19 00:00:00 Completed [facility] Influenza Virus Vaccine Quad .5 mL IM 6+ MO 2018-04-19 00:00:00 Completed [facility] Influenza Virus Vaccine Quad .5 mL IM 6+ MO 2018-04-19 00:00:00 Completed [facility] Influenza Virus Vaccine Quad .5 mL IM 6+ MO 2018-04-19 00:00:00 Completed [facility] Influenza Virus Vaccine Quad .5 mL IM 6+ MO 2018-04-19 00:00:00 Completed [facility] Influenza Virus Vaccine Quad .5 mL IM 6+ MO 2018-04-19 00:00:00 Completed [facility] Influenza Virus Vaccine Quad .5 mL IM 6+ MO 2018-04-19 00:00:00 Completed [facility] Influenza Virus Vaccine Quad .5 mL IM 6+ MO 2018-04-19 00:00:00 Completed [facility] Influenza Virus Vaccine Quad .5 mL IM 6+ MO 2018-04-19 00:00:00 Completed [facility] Influenza Virus Vaccine Quad .5 mL IM 6+ MO 2018-04-19 00:00:00 Completed [facility] Influenza Virus Vaccine Quad .5 mL IM 6+ MO 2018-04-19 00:00:00 Completed [facility] Influenza Virus Vaccine Quad .5 mL IM 6+ MO 2018-04-19 00:00:00 Completed [facility] Influenza Virus Vaccine Quad .5 mL IM 6+ MO 2018-04-19 00:00:00 Completed [facility] Influenza Virus Vaccine Quad .5 mL IM 6+ MO (FLUZONE/FLULAVAL/F LUARIX) 2018-04-19 00:00:00 Completed [facility] Influenza Virus Vaccine Quad .5 mL IM 6+ MO (FLUZONE/FLULAVAL/F LUARIX) 2018-04-19 00:00:00 Completed [facility] Influenza Virus Vaccine Quad .5 mL IM 6+ MO (FLUZONE/FLULAVAL/F LUARIX) 2018-04-19 00:00:00 Completed [facility] TDAP 2015-07-02 00:00:00 Completed [facility] TDAP 2015-07-02 00:00:00 Completed [facility] TDAP 2015-07-02 00:00:00 Completed [facility] TDAP 2015-07-02 00:00:00 Completed [facility] TDAP 2015-07-02 00:00:00 Completed [facility] TDAP 2015-07-02 00:00:00 Completed [facility] TDAP 2015-07-02 00:00:00 Completed [facility] TDAP 2015-07-02 00:00:00 Completed [facility] TDAP 2015-07-02 00:00:00 Completed [facility] TDAP 2015-07-02 00:00:00 Completed [facility] TDAP 2015-07-02 00:00:00 Completed [facility] TDAP 2015-07-02 00:00:00 Completed [facility] TDAP 2015-07-02 00:00:00 Completed [facility] TDAP 2015-07-02 00:00:00 Completed [facility] TDAP 2015-07-02 00:00:00 Completed [facility] TDAP 2015-07-02 00:00:00 Completed [facility] TDAP 2015-07-02 00:00:00 Completed [facility] TDAP 2015-07-02 00:00:00 Completed [facility] TDAP 2015-07-02 00:00:00 Completed [facility] TDAP 2015-07-02 00:00:00 Completed [facility] TDAP 2015-07-02 00:00:00 Completed [facility] TDAP 2015-07-02 00:00:00 Completed [facility] TDAP 2015-07-02 00:00:00 Completed [facility] TDAP 2015-07-02 00:00:00 Completed [facility] TDAP 2015-07-02 00:00:00 Completed [facility] TDAP 2015-07-02 00:00:00 Completed [facility] TDAP 2015-07-02 00:00:00 Completed [facility] TDAP 2015-07-02 00:00:00 Completed [facility] TDAP 2015-07-02 00:00:00 Completed [facility] TDAP 2015-07-02 00:00:00 Completed [facility] TDAP 2015-07-02 00:00:00 Completed [facility] TDAP 2015-07-02 00:00:00 Completed [facility] TDAP 2015-07-02 00:00:00 Completed [facility] TDAP 2015-07-02 00:00:00 Completed [facility] Td 1996-12-28 00:00:00 Completed [facility] Td 1996-12-28 00:00:00 Completed [facility] Td 1996-12-28 00:00:00 Completed [facility] TD, NOS 1996-12-28 00:00:00 Completed [facility] TD, NOS 1996-12-28 00:00:00 Completed [facility] TD, NOS 1996-12-28 00:00:00 Completed [facility] TD, NOS 1996-12-28 00:00:00 Completed [facility] TD, NOS 1996-12-28 00:00:00 Completed [facility] TD, NOS 1996-12-28 00:00:00 Completed [facility] TD, NOS 1996-12-28 00:00:00 Completed [facility] TD, NOS 1996-12-28 00:00:00 Completed [facility] TD, NOS 1996-12-28 00:00:00 Completed [facility] TD, NOS 1996-12-28 00:00:00 Completed [facility] TD, NOS 1996-12-28 00:00:00 Completed [facility] TD, NOS 1996-12-28 00:00:00 Completed [facility] TD, NOS 1996-12-28 00:00:00 Completed [facility] TD, NOS 1996-12-28 00:00:00 Completed [facility] TD, NOS 1996-12-28 00:00:00 Completed [facility] TD, NOS 1996-12-28 00:00:00 Com[place] [facility] TD, NOS 1996-12-28 00:00:00 Completed [facility] TD, NOS 1996-12-28 00:00:00 Completed [facility] TD, NOS 1996-12-28 00:00:00 Completed [facility] TD, NOS 1996-12-28 00:00:00 Completed [facility] TD, NOS 1996-12-28 00:00:00 Completed [facility] TD, NOS 1996-12-28 00:00:00 Completed [facility] TD, NOS 1996-12-28 00:00:00 Completed [facility] TD, NOS 1996-12-28 00:00:00 Completed [facility] TD, NOS 1996-12-28 00:00:00 Completed [facility] TD, NOS 1996-12-28 00:00:00 Completed [facility] TD, NOS 1996-12-28 00:00:00 Completed [facility] TD, NOS 1996-12-28 00:00:00 Completed [facility] TD, NOS 1996-12-28 00:00:00 Completed [facility] TD, NOS 1996-12-28 00:00:00 Completed [facility] TD, NOS 1996-12-28 00:00:00 Completed [facility] TD, NOS Unknown Completed [facility] TDAP Unknown Completed [facility] Influenza Virus Vaccine Quad .5 mL IM 6+ MO (FLUZONE/FLULAVAL/F LUARIX) Unknown Completed [facility] Influenza Virus Vaccine Quad .5 mL IM 6+ MO (FLUZONE/FLULAVAL/F LUARIX) Unknown Completed [facility] SARS-COV-2 COVID-19 MODERNA 12+ YRS VACCINE Unknown Completed [facility] SARS-COV-2 COVID-19 MODERNA 12+ YRS VACCINE Unknown Completed [facility] Influenza Virus Vaccine Recomb Quad IM, Preserv and ABX Free 18-64 YRS Unknown Completed [facility] TD, NOS Unknown Completed [facility] TDAP Unknown Completed [facility] Influenza Virus Vaccine Quad .5 mL IM 6+ MO (FLUZONE/FLULAVAL/F LUARIX) Unknown Completed [facility] Influenza Virus Vaccine Quad .5 mL IM 6+ MO (FLUZONE/FLULAVAL/F LUARIX) Unknown Completed [facility] SARS-COV-2 COVID-19 MODERNA 12+ YRS VACCINE Unknown Completed [facility] SARS-COV-2 COVID-19 MODERNA 12+ YRS VACCINE Unknown Completed [facility] Influenza Virus Vaccine Recomb Quad IM, Preserv and ABX Free 18-64 YRS Unknown Completed [facility] TD, NOS Unknown Completed [facility] TDAP Unknown Completed [facility] Influenza Virus Vaccine Quad .5 mL IM 6+ MO (FLUZONE/FLULAVAL/F LUARIX) Unknown Completed [facility] Influenza Virus Vaccine Quad .5 mL IM 6+ MO (FLUZONE/FLULAVAL/F LUARIX) Unknown Completed [facility] SARS-COV-2 COVID-19 MODERNA 12+ YRS VACCINE Unknown Completed [facility] SARS-COV-2 COVID-19 MODERNA 12+ YRS VACCINE Unknown Completed [facility] Influenza Virus Vaccine Recomb Quad IM, Preserv and ABX Free 18-64 YRS Unknown Completed [facility] TD, NOS Unknown Completed [facility] TDAP Unknown Completed [facility] Influenza Virus Vaccine Quad .5 mL IM 6+ MO (FLUZONE/FLULAVAL/F LUARIX) Unknown Completed [facility] Influenza Virus Vaccine Quad .5 mL IM 6+ MO (FLUZONE/FLULAVAL/F LUARIX) Unknown Completed [facility] SARS-COV-2 COVID-19 MODERNA 12+ YRS VACCINE Unknown Completed [facility] SARS-COV-2 COVID-19 MODERNA 12+ YRS VACCINE Unknown Completed [facility] Influenza Virus Vaccine Recomb Quad IM, Preserv and ABX Free 18-64 YRS Unknown Completed [facility] TD, NOS Unknown Completed [facility] TDAP Unknown Completed [facility] Influenza Virus Vaccine Quad .5 mL IM 6+ MO (FLUZONE/FLULAVAL/F LUARIX) Unknown Completed [facility] Influenza Virus Vaccine Quad .5 mL IM 6+ MO (FLUZONE/FLULAVAL/F LUARIX) Unknown Completed [facility] SARS-COV-2 COVID-19 MODERNA 12+ YRS VACCINE Unknown Completed [facility] SARS-COV-2 COVID-19 MODERNA 12+ YRS VACCINE Unknown Completed [facility] TD, NOS Unknown Completed [facility] TDAP Unknown Completed [facility] Influenza Virus Vaccine Quad .5 mL IM 6+ MO (FLUZONE/FLULAVAL/F LUARIX) Unknown Completed [facility] TD, NOS Unknown Completed [facility] TDAP Unknown Completed [facility] Influenza Virus Vaccine Quad .5 mL IM 6+ MO (FLUZONE/FLULAVAL/F LUARIX) Unknown Completed [facility] TD, NOS Unknown Completed [facility] TDAP Unknown Completed [facility] Influenza Virus Vaccine Quad .5 mL IM 6+ MO (FLUZONE/FLULAVAL/F LUARIX) Unknown Completed [facility] Influenza Virus Vaccine Quad .5 mL IM 6+ MO (FLUZONE/FLULAVAL/F LUARIX) Unknown Completed [facility] SARS-COV-2 COVID-19 MODERNA 12+ YRS VACCINE Unknown Completed [facility] SARS-COV-2 COVID-19 MODERNA 12+ YRS VACCINE Unknown Completed [facility] Influenza Virus Vaccine Recomb Quad IM, Preserv and ABX Free 18-64 YRS Unknown Completed [facility] TD, NOS Unknown Completed [facility] TDAP Unknown Completed [facility] Influenza Virus Vaccine Quad .5 mL IM 6+ MO (FLUZONE/FLULAVAL/F LUARIX) Unknown Completed [facility] Influenza Virus Vaccine Quad .5 mL IM 6+ MO (FLUZONE/FLULAVAL/F LUARIX) Unknown Completed [facility] SARS-COV-2 COVID-19 MODERNA 12+ YRS VACCINE Unknown Completed [facility] SARS-COV-2 COVID-19 MODERNA 12+ YRS VACCINE Unknown Completed [facility] Influenza Virus Vaccine Recomb Quad IM, Preserv and ABX Free 18-64 YRS Unknown Completed [facility] TD, NOS Unknown Completed [facility] TDAP Unknown Completed [facility] Influenza Virus Vaccine Quad .5 mL IM 6+ MO (FLUZONE/FLULAVAL/F LUARIX) Unknown Completed [facility] Influenza Virus Vaccine Quad .5 mL IM 6+ MO (FLUZONE/FLULAVAL/F LUARIX) Unknown Completed [facility] SARS-COV-2 COVID-19 MODERNA 12+ YRS VACCINE Unknown Completed [facility] SARS-COV-2 COVID-19 MODERNA 12+ YRS VACCINE Unknown Completed [facility] Influenza Virus Vaccine Recomb Quad IM, Preserv and ABX Free 18-64 YRS Unknown Completed [facility] TD, NOS Unknown Completed [facility] TDAP Unknown Completed [facility] Influenza Virus Vaccine Quad .5 mL IM 6+ MO (FLUZONE/FLULAVAL/F LUARIX) Unknown Completed [facility] Influenza Virus Vaccine Quad .5 mL IM 6+ MO (FLUZONE/FLULAVAL/F LUARIX) Unknown Completed [facility] SARS-COV-2 COVID-19 MODERNA 12+ YRS VACCINE Unknown Completed [facility] SARS-COV-2 COVID-19 MODERNA 12+ YRS VACCINE Unknown Completed [facility] Influenza Virus Vaccine Recomb Quad IM, Preserv and ABX Free 18-64 YRS Unknown Completed [facility] TD, NOS Unknown Completed [facility] TDAP Unknown Completed [facility] Influenza Virus Vaccine Quad .5 mL IM 6+ MO (FLUZONE/FLULAVAL/F LUARIX) Unknown Completed [facility] Influenza Virus Vaccine Quad .5 mL IM 6+ MO (FLUZONE/FLULAVAL/F LUARIX) Unknown Completed [facility] SARS-COV-2 COVID-19 MODERNA 12+ YRS VACCINE Unknown Completed [facility] SARS-COV-2 COVID-19 MODERNA 12+ YRS VACCINE Unknown Completed [facility] Influenza Virus Vaccine Recomb Quad IM, Preserv and ABX Free 18-64 YRS Unknown Completed [facility] TD, NOS Unknown Completed [facility] TDAP Unknown Completed [facility] Influenza Virus Vaccine Quad .5 mL IM 6+ MO (FLUZONE/FLULAVAL/F LUARIX) Unknown Completed [facility] Influenza Virus Vaccine Quad .5 mL IM 6+ MO (FLUZONE/FLULAVAL/F LUARIX) Unknown Completed [facility] SARS-COV-2 COVID-19 MODERNA 12+ YRS VACCINE Unknown Completed [facility] SARS-COV-2 COVID-19 MODERNA 12+ YRS VACCINE Unknown Completed [facility] Influenza Virus Vaccine Recomb Quad IM, Preserv and ABX Free 18-64 YRS Unknown Completed [facility] TD, NOS Unknown Completed [facility] TDAP Unknown Completed [facility] Influenza Virus Vaccine Quad .5 mL IM 6+ MO (FLUZONE/FLULAVAL/F LUARIX) Unknown Completed [facility] Influenza Virus Vaccine Quad .5 mL IM 6+ MO (FLUZONE/FLULAVAL/F LUARIX) Unknown Completed [facility] SARS-COV-2 COVID-19 MODERNA 12+ YRS VACCINE Unknown Completed [facility] SARS-COV-2 COVID-19 MODERNA 12+ YRS VACCINE Unknown Completed [facility] Influenza Virus Vaccine Recomb Quad IM, Preserv and ABX Free 18-64 YRS Unknown Completed [facility] Influenza Virus Vaccine Quad IM, Preserv and ABX Free 6 MO-64 YRS (FLUCELVAX) Unknown Completed [facility] TD, NOS Unknown Completed [facility] TDAP Unknown Completed [facility] Influenza Virus Vaccine Quad .5 mL IM 6+ MO (FLUZONE/FLULAVAL/F LUARIX) Unknown Completed [facility] Influenza Virus Vaccine Quad .5 mL IM 6+ MO (FLUZONE/FLULAVAL/F LUARIX) Unknown Completed [facility] SARS-COV-2 COVID-19 MODERNA 12+ YRS VACCINE Unknown Completed [facility] SARS-COV-2 COVID-19 MODERNA 12+ YRS VACCINE Unknown Completed [facility] Influenza Virus Vaccine Recomb Quad IM, Preserv and ABX Free 18-64 YRS Unknown Completed [facility] Influenza Virus Vaccine Quad IM, Preserv and ABX Free 6 MO-64 YRS (FLUCELVAX) Unknown Completed [facility] TD, NOS Unknown Completed [facility] TDAP Unknown Completed [facility] Influenza Virus Vaccine Quad .5 mL IM 6+ MO (FLUZONE/FLULAVAL/F LUARIX) Unknown Completed [facility] Influenza Virus Vaccine Quad .5 mL IM 6+ MO (FLUZONE/FLULAVAL/F LUARIX) Unknown Completed [facility] SARS-COV-2 COVID-19 MODERNA 12+ YRS VACCINE Unknown Completed [facility] SARS-COV-2 COVID-19 MODERNA 12+ YRS VACCINE Unknown Completed [facility] Influenza Virus Vaccine Recomb Quad IM, Preserv and ABX Free 18-64 YRS Unknown Completed [facility] Influenza Virus Vaccine Quad IM, Preserv and ABX Free 6 MO-64 YRS (FLUCELVAX) Unknown Completed [facility] TD, NOS Unknown Completed [facility] TDAP Unknown Completed [facility] Influenza Virus Vaccine Quad .5 mL IM 6+ MO (FLUZONE/FLULAVAL/F LUARIX) Unknown Completed [facility] Influenza Virus Vaccine Quad .5 mL IM 6+ MO (FLUZONE/FLULAVAL/F LUARIX) Unknown Completed [facility] SARS-COV-2 COVID-19 MODERNA 12+ YRS VACCINE Unknown Completed [facility] SARS-COV-2 COVID-19 MODERNA 12+ YRS VACCINE Unknown Completed [facility] Influenza Virus Vaccine Recomb Quad IM, Preserv and ABX Free 18-64 YRS Unknown Completed [facility] Influenza Virus Vaccine Quad IM, Preserv and ABX Free 6 MO-64 YRS (FLUCELVAX) Unknown Completed [facility] TD, NOS Unknown Completed [facility] TDAP Unknown Completed [facility] Influenza Virus Vaccine Quad .5 mL IM 6+ MO (FLUZONE/FLULAVAL/F LUARIX) Unknown Completed [facility] Influenza Virus Vaccine Quad .5 mL IM 6+ MO (FLUZONE/FLULAVAL/F LUARIX) Unknown Completed [facility] SARS-COV-2 COVID-19 MODERNA 12+ YRS VACCINE Unknown Completed [facility] SARS-COV-2 COVID-19 MODERNA 12+ YRS VACCINE Unknown Completed [facility] Influenza Virus Vaccine Recomb Quad IM, Preserv and ABX Free 18-64 YRS Unknown Completed [facility] Influenza Virus Vaccine Quad IM, Preserv and ABX Free 6 MO-64 YRS (FLUCELVAX) Unknown Completed [facility] TD, NOS Unknown Completed [facility] TDAP Unknown Completed [facility] Influenza Virus Vaccine Quad .5 mL IM 6+ MO (FLUZONE/FLULAVAL/F LUARIX) Unknown Completed [facility] Influenza Virus Vaccine Quad .5 mL IM 6+ MO (FLUZONE/FLULAVAL/F LUARIX) Unknown Completed [facility] SARS-COV-2 COVID-19 MODERNA 12+ YRS VACCINE Unknown Completed [facility] SARS-COV-2 COVID-19 MODERNA 12+ YRS VACCINE Unknown Completed [facility] Influenza Virus Vaccine Recomb Quad IM, Preserv and ABX Free 18-64 YRS Unknown Completed [facility] Influenza Virus Vaccine Quad IM, Preserv and ABX Free 6 MO-64 YRS (FLUCELVAX) Unknown Completed [facility] TD, NOS Unknown Completed [facility] TDAP Unknown Completed [facility] Influenza Virus Vaccine Quad .5 mL IM 6+ MO (FLUZONE/FLULAVAL/F LUARIX) Unknown Completed [facility] Influenza Virus Vaccine Quad .5 mL IM 6+ MO (FLUZONE/FLULAVAL/F LUARIX) Unknown Completed [facility] SARS-COV-2 COVID-19 MODERNA 12+ YRS VACCINE Unknown Completed [facility] SARS-COV-2 COVID-19 MODERNA 12+ YRS VACCINE Unknown Completed [facility] Influenza Virus Vaccine Recomb Quad IM, Preserv and ABX Free 18-64 YRS Unknown Completed [facility] Influenza Virus Vaccine Quad IM, Preserv and ABX Free 6 MO-64 YRS (FLUCELVAX) Unknown Completed [facility] TD, NOS Unknown Completed [facility] TDAP Unknown Completed [facility] Influenza Virus Vaccine Quad .5 mL IM 6+ MO (FLUZONE/FLULAVAL/F LUARIX) Unknown Completed [facility] Influenza Virus Vaccine Quad .5 mL IM 6+ MO (FLUZONE/FLULAVAL/F LUARIX) Unknown Completed [facility] SARS-COV-2 COVID-19 MODERNA 12+ YRS VACCINE Unknown Completed [facility] SARS-COV-2 COVID-19 MODERNA 12+ YRS VACCINE Unknown Completed [facility] Influenza Virus Vaccine Recomb Quad IM, Preserv and ABX Free 18-64 YRS Unknown Completed [facility] Influenza Virus Vaccine Quad IM, Preserv and ABX Free 6 MO-64 YRS (FLUCELVAX) Unknown Completed [facility] TD, NOS Unknown Completed [facility] TDAP Unknown Completed [facility] Influenza Virus Vaccine Quad .5 mL IM 6+ MO (FLUZONE/FLULAVAL/F LUARIX) Unknown Completed [facility] Influenza Virus Vaccine Quad .5 mL IM 6+ MO (FLUZONE/FLULAVAL/F LUARIX) Unknown Completed [facility] SARS-COV-2 COVID-19 MODERNA 12+ YRS VACCINE Unknown Completed [facility] SARS-COV-2 COVID-19 MODERNA 12+ YRS VACCINE Unknown Completed [facility] Influenza Virus Vaccine Recomb Quad IM, Preserv and ABX Free 18-64 YRS Unknown Completed [facility] Influenza Virus Vaccine Quad IM, Preserv and ABX Free 6 MO-64 YRS (FLUCELVAX) Unknown Completed [facility] TD, NOS Unknown Completed [facility] TDAP Unknown Completed [facility] Influenza Virus Vaccine Quad .5 mL IM 6+ MO (FLUZONE/FLULAVAL/F LUARIX) Unknown Completed [facility] Influenza Virus Vaccine Quad .5 mL IM 6+ MO (FLUZONE/FLULAVAL/F LUARIX) Unknown Completed [facility] SARS-COV-2 COVID-19 MODERNA 12+ YRS VACCINE Unknown Completed [facility] SARS-COV-2 COVID-19 MODERNA 12+ YRS VACCINE Unknown Completed [facility] Influenza Virus Vaccine Recomb Quad IM, Preserv and ABX Free 18-64 YRS Unknown Completed [facility] Influenza Virus Vaccine Quad IM, Preserv and ABX Free 6 MO-64 YRS (FLUCELVAX) Unknown Completed [facility] TD, NOS Unknown Completed [facility] TDAP Unknown Completed [facility] Influenza Virus Vaccine Quad .5 mL IM 6+ MO (FLUZONE/FLULAVAL/F LUARIX) Unknown Completed [facility] Influenza Virus Vaccine Quad .5 mL IM 6+ MO (FLUZONE/FLULAVAL/F LUARIX) Unknown Completed [facility] SARS-COV-2 COVID-19 MODERNA 12+ YRS VACCINE Unknown Completed [facility] SARS-COV-2 COVID-19 MODERNA 12+ YRS VACCINE Unknown Completed [facility] Influenza Virus Vaccine Recomb Quad IM, Preserv and ABX Free 18-64 YRS Unknown Completed [facility] Influenza Virus Vaccine Quad IM, Preserv and ABX Free 6 MO-64 YRS (FLUCELVAX) Unknown Completed [facility] TD, NOS Unknown Completed [facility] TDAP Unknown Completed [facility] Influenza Virus Vaccine Quad .5 mL IM 6+ MO (FLUZONE/FLULAVAL/F LUARIX) Unknown Completed [facility] Influenza Virus Vaccine Quad .5 mL IM 6+ MO (FLUZONE/FLULAVAL/F LUARIX) Unknown Completed [facility] SARS-COV-2 COVID-19 MODERNA 12+ YRS VACCINE Unknown Completed [facility] SARS-COV-2 COVID-19 MODERNA 12+ YRS VACCINE Unknown Completed [facility] Influenza Virus Vaccine Recomb Quad IM, Preserv and ABX Free 18-64 YRS Unknown Completed [facility] Influenza Virus Vaccine Quad IM, Preserv and ABX Free 6 MO-64 YRS (FLUCELVAX) Unknown Completed [facility] TD, NOS Unknown Completed [facility] TDAP Unknown Completed [facility] Influenza Virus Vaccine Quad .5 mL IM 6+ MO (FLUZONE/FLULAVAL/F LUARIX) Unknown Completed [facility] Influenza Virus Vaccine Quad .5 mL IM 6+ MO (FLUZONE/FLULAVAL/F LUARIX) Unknown Completed [facility] SARS-COV-2 COVID-19 MODERNA 12+ YRS VACCINE Unknown Completed [facility] SARS-COV-2 COVID-19 MODERNA 12+ YRS VACCINE Unknown Completed [facility] Influenza Virus Vaccine Recomb Quad IM, Preserv and ABX Free 18-64 YRS Unknown Completed [facility] Influenza Virus Vaccine Quad IM, Preserv and ABX Free 6 MO-64 YRS (FLUCELVAX) Unknown Completed [facility] TD, NOS Unknown Completed [facility] TDAP Unknown Completed [facility] Influenza Virus Vaccine Quad .5 mL IM 6+ MO (FLUZONE/FLULAVAL/F LUARIX) Unknown Completed [facility] Influenza Virus Vaccine Quad .5 mL IM 6+ MO (FLUZONE/FLULAVAL/F LUARIX) Unknown Completed [facility] SARS-COV-2 COVID-19 MODERNA 12+ YRS VACCINE Unknown Completed [facility] SARS-COV-2 COVID-19 MODERNA 12+ YRS VACCINE Unknown Completed [facility] Influenza Virus Vaccine Recomb Quad IM, Preserv and ABX Free 18-64 YRS Unknown Completed [facility] Influenza Virus Vaccine Quad IM, Preserv and ABX Free 6 MO-64 YRS (FLUCELVAX) Unknown Completed [facility] TD, NOS Unknown Completed [facility] TDAP Unknown Completed [facility] Influenza Virus Vaccine Quad .5 mL IM 6+ MO (FLUZONE/FLULAVAL/F LUARIX) Unknown Completed [facility] Influenza Virus Vaccine Quad .5 mL IM 6+ MO (FLUZONE/FLULAVAL/F LUARIX) Unknown Completed [facility] SARS-COV-2 COVID-19 MODERNA 12+ YRS VACCINE Unknown Completed [facility] SARS-COV-2 COVID-19 MODERNA 12+ YRS VACCINE Unknown Completed [facility] Influenza Virus Vaccine Recomb Quad IM, Preserv and ABX Free 18-64 YRS Unknown Completed [facility] Influenza Virus Vaccine Quad IM, Preserv and ABX Free 6 MO-64 YRS (FLUCELVAX) Unknown Completed [facility] TD, NOS Unknown Completed [facility] TDAP Unknown Completed [facility] Influenza Virus Vaccine Quad .5 mL IM 6+ MO (FLUZONE/FLULAVAL/F LUARIX) Unknown Completed [facility] Influenza Virus Vaccine Quad .5 mL IM 6+ MO (FLUZONE/FLULAVAL/F LUARIX) Unknown Completed [facility] SARS-COV-2 COVID-19 MODERNA 12+ YRS VACCINE Unknown Completed [facility] SARS-COV-2 COVID-19 MODERNA 12+ YRS VACCINE Unknown Completed [facility] Influenza Virus Vaccine Recomb Quad IM, Preserv and ABX Free 18-64 YRS Unknown Completed [facility] Influenza Virus Vaccine Quad IM, Preserv and ABX Free 6 MO-64 YRS (FLUCELVAX) Unknown Completed [facility] TD, NOS Unknown Completed [facility] TDAP Unknown Completed [facility] Influenza Virus Vaccine Quad .5 mL IM 6+ MO (FLUZONE/FLULAVAL/F LUARIX) Unknown Completed [facility] Influenza Virus Vaccine Quad .5 mL IM 6+ MO (FLUZONE/FLULAVAL/F LUARIX) Unknown Completed [facility] SARS-COV-2 COVID-19 MODERNA 12+ YRS VACCINE Unknown Completed [facility] SARS-COV-2 COVID-19 MODERNA 12+ YRS VACCINE Unknown Completed [facility] Influenza Virus Vaccine Recomb Quad IM, Preserv and ABX Free 18-64 YRS Unknown Completed [facility] Influenza Virus Vaccine Quad IM, Preserv and ABX Free 6 MO-64 YRS (FLUCELVAX) Unknown Completed [facility] TD, NOS Unknown Completed [facility] TDAP Unknown Completed [facility] Influenza Virus Vaccine Quad .5 mL IM 6+ MO (FLUZONE/FLULAVAL/F LUARIX) Unknown Completed [facility] Influenza Virus Vaccine Quad .5 mL IM 6+ MO (FLUZONE/FLULAVAL/F LUARIX) Unknown Completed [facility] SARS-COV-2 COVID-19 MODERNA 12+ YRS VACCINE Unknown Completed [facility] SARS-COV-2 COVID-19 MODERNA 12+ YRS VACCINE Unknown Completed [facility] Influenza Virus Vaccine Recomb Quad IM, Preserv and ABX Free 18-64 YRS Unknown Completed [facility] Influenza Virus Vaccine Quad IM, Preserv and ABX Free 6 MO-64 YRS (FLUCELVAX) Unknown Completed [facility] Vital Signs Vital Name Observation Time Observation Value Comments S ource Systolic blood pressure 2023-07-16 15:14:00 113 mm[Hg] [facility] Diastolic blood pressure 2023-07-16 15:14:00 56 mm[Hg] [facility] Heart rate 2023-07-16 15:14:00 76 /min [facility] Body height 2023-07-16 15:14:00 188 cm [facility] Body weight 2023-07-16 15:14:[address] [facility] BMI 2023-07-16 15:14:00 29.48 kg/m2 [facility] Oxygen saturation in Arterial blood by Pulse oximetry 2023-07-16 15:14:00 98 /min [facility] Systolic blood pressure 2023-07-01 19:04:00 100 mm[Hg] [facility] Diastolic blood pressure 2023-07-01 19:04:00 68 mm[Hg] [facility] Heart rate 2023-07-01 19:04:00 73 /min [facility] Body temperature 2023-07-01 19:04:00 36.44 Alysa [facility] Respiratory rate 2023-07-01 19:04:00 18 /min [facility] Body height 2023-07-01 19:04:[address] [facility] Body weight 2023-07-01 19:04:[address] [facility] BMI 2023-07-01 19:04:00 28.93 kg/m2 [facility] Oxygen saturation in Arterial blood by Pulse oximetry 2023-07-01 19:04:00 100 /min [facility] Systolic blood pressure 2023-05-04 21:53:00 126 mm[Hg] [facility] Diastolic blood pressure 2023-05-04 21:53:00 63 mm[Hg] [facility] Heart rate 2023-05-04 21:53:00 81 /min [facility] Body temperature 2023-05-04 21:53:00 36.22 Alysa [facility] Respiratory rate 2023-05-04 21:53:00 16 /min [facility] Body height 2023-05-04 21:53:[address] [facility] Body weight 2023-05-04 21:53:[address] [facility] BMI 2023-05-04 21:53:00 26.71 kg[facility] Oxygen saturation in Arterial blood by Pulse oximetry 2023-05-04 21:53:00 99 /min [facility] Systolic blood pressure 2023-04-15 20:08:00 111 mm[Hg] [facility] Diastolic blood pressure 2023-04-15 20:08:00 73 mm[Hg] [facility] Heart rate 2023-04-15 20:08:00 84 /min [facility] Respiratory rate 2023-04-15 20:08:00 18 /min [facility] Body height 2023-04-15 20:08:00 188 cm [facility] Body weight 2023-04-15 20:08:00 87.499 kg [facility] BMI 2023-04-15 20:08:00 24.77 kg/m2 [facility] Oxygen saturation in Arterial blood by Pulse oximetry 2023-04-15 20:08:00 99 /min [facility] Systolic blood pressure 2023-03-05 19:55:00 112 mm[Hg] [facility] Diastolic blood pressure 2023-03-05 19:55:00 71 mm[Hg] [facility] Heart rate 2023-03-05 19:55:00 80 /min [facility] Respiratory rate 2023-03-05 19:02:00 18 /min [facility] Body height 2023-03-05 19:02:00 188 cm [facility] Body weight 2023-03-05 19:02:[address] [facility] BMI 2023-03-05 19:02:00 23.20 kg/m2 [facility] Oxygen saturation in Arterial blood by Pulse oximetry 2023-03-05 19:02:00 100 /min [facility] Systolic blood pressure 2023-02-17 19:18:00 112 mm[Hg] [facility] Diastolic blood pressure 2023-02-17 19:18:00 51 mm[Hg] [facility] Heart rate 2023-02-17 19:18:00 87 /min [facility] Respiratory rate 2023-02-17 19:18:00 18 /min [facility] Body height 2023-02-17 19:18:[address] [facility] Body weight 2023-02-17 19:18:00 82.056 kg [facility] BMI 2023-02-17 19:18:00 23.23 kg/m2 [facility] Oxygen saturation in Arterial blood by Pulse oximetry 2023-02-17 19:18:00 100 /min [facility] Systolic blood pressure 2023-02-10 21:09:00 116 mm[Hg] [facility] Diastolic blood pressure 2023-02-10 21:09:00 68 mm[Hg] [facility] Heart rate 2023-02-10 21:09:00 98 /min [facility] Body temperature 2023-02-10 21:09:00 36.72 Alysa [facility] Respiratory rate 2023-02-10 21:09:00 16 /min [facility] Oxygen saturation in Arterial blood by Pulse oximetry 2023-02-10 21:09:00 100 /min [facility] Body height 2023-02-10 19:20:00 188 cm [facility] Body weight 2023-02-10 19:20:00 83.507 kg [facility] BMI 2023-02-10 19:20:00 23.64 kg/m2 [facility] Systolic blood pressure 2023-01-21 16:39:00 110 mm[Hg] [facility] Diastolic blood pressure 2023-01-21 16:39:00 73 mm[Hg] [facility] Heart rate 2023-01-21 16:39:00 96 /min [facility] Body height 2023-01-21 16:39:00 188 cm [facility] Body weight 2023-01-21 16:39:00 91.173 kg [facility] BMI 2023-01-21 16:39:00 25.81 kg/m2 [facility] Oxygen saturation in Arterial blood by Pulse oximetry 2023-01-21 16:39:00 99 /min [facility] Systolic blood pressure 2023-01-12 17:41:00 108 mm[Hg] [facility] Diastolic blood pressure 2023-01-12 17:41:00 57 mm[Hg] [facility] Heart rate 2023-01-12 17:41:00 81 /min [facility] Body temperature 2023-01-12 17:41:00 36.67 Alsya [facility] Respiratory rate 2023-01-12 17:41:00 18 /min [facility] Body height 2023-01-12 17:41:00 188 cm [facility] Body weight 2023-01-12 17:41:00 94.348 kg [facility] BMI 2023-01-12 17:41:00 26.71 kg/m2 [facility] Systolic blood pressure 2022-11-24 19:49:00 108 mm[Hg] [facility] Diastolic blood pressure 2022-11-24 19:49:00 74 mm[Hg] [facility] Heart rate 2022-11-24 19:48:00 90 /min [facility] Body height 2022-11-24 19:48:00 188 cm [facility] Body weight 2022-11-24 19:48:00 103.193 kg [facility] BMI 2022-11-24 19:48:00 29.21 kg/m2 [facility] Oxygen saturation in Arterial blood by Pulse oximetry 2022-11-24 19:48:00 97 /min [facility] Systolic blood pressure 2022-09-08 20:43:00 128 mm[Hg] [facility] Diastolic blood pressure 2022-09-08 20:43:00 78 mm[Hg] [facility] Heart rate 2022-09-08 20:43:00 81 /min [facility] Body temperature 2022-09-08 20:43:00 36.72 Alysa [facility] Respiratory rate 2022-09-08 20:43:00 16 /min [facility] Body weight 2022-09-08 20:43:00 105.688 kg [facility] BMI 2022-09-08 20:43:00 29.92 kg/m2 [facility] Oxygen saturation in Arterial blood by Pulse oximetry 2022-09-08 20:43:00 99 /min [facility] Oxygen saturation in Arterial blood by Pulse oximetry 2022-08-21 14:07:00 100 /min [facility] Systolic blood pressure 2022-08-21 14:07:00 106 mm[Hg] [facility] Diastolic blood pressure 2022-08-21 14:07:00 68 mm[Hg] [facility] Heart rate 2022-08-21 14:07:00 77 /min [facility] Body temperature 2022-08-21 14:07:00 36.44 Alysa [facility] Body height 2022-08-21 14:07:00 188 cm [facility] Body weight 2022-08-21 14:07:00 105.688 kg [facility] BMI 2022-08-21 14:07:00 29.92 kg/m2 [facility] Systolic blood pressure 2022-07-24 15:49:00 109 mm[Hg] [facility] Diastolic blood pressure 2022-07-24 15:49:00 60 mm[Hg] [facility] Heart rate 2022-07-24 15:49:00 91 /min [facility] Body temperature 2022-07-24 15:49:00 36.44 Alysa [facility] Respiratory rate 2022-07-24 15:49:00 18 /min [facility] Body height 2022-07-24 15:49:00 188 cm [facility] Body weight 2022-07-24 15:49:00 106.913 kg [facility] BMI 2022-07-24 15:49:00 30.26 kg/m2 [facility] Oxygen saturation in Arterial blood by Pulse oximetry 2022-07-24 15:49:00 99 /min [facility] Systolic blood pressure 2022-07-01 17:11:00 120 mm[Hg] [facility] Diastolic blood pressure 2022-07-01 17:11:00 81 mm[Hg] [facility] Heart rate 2022-07-01 17:11:00 110 /min [facility] Body temperature 2022-07-01 17:11:00 36.67 Alysa [facility] Respiratory rate 2022-07-01 17:11:00 20 /min [facility] Body height 2022-07-01 17:11:00 188 cm [facility] Body weight 2022-07-01 17:11:00 103.375 kg [facility] BMI 2022-07-01 17:11:00 29.26 kg/m2 [facility] Oxygen saturation in Arterial blood by Pulse oximetry 2022-07-01 17:11:00 100 /min [facility] Systolic blood pressure 2021-11-27 14:35:00 110 mm[Hg] [facility] Diastolic blood pressure 2021-11-27 14:35:00 75 mm[Hg] [facility] Heart rate 2021-11-27 14:35:00 71 /[facility] 2021-11-27 14:35:00 37.11 Alysa [facility] Body height 2021-11-27 14:35:00 188 cm [facility] Body weight 2021-11-27 14:35:00 111.585 kg [facility] BMI 2021-11-27 14:35:00 31.58 kg/m2 [facility] Procedures Procedure Date / Time Performed Performing Clinicia n Source ASSIGNMENT OF BENEFITS 2023-07-01 18:47:52 Docto r Unassigned, [place] [facility] POCT MOLECULAR FLU 2023-05-04 21:52:00 Unknown, Attend ing [facility] POCT MOLECULAR STREP 2023-05-04 21:48:00 Unknown, Atte robel [facility] FLU VACC (), 6 MO-64 YRS, .5ML, IM, QUAD (FLUCELVAX) 2023-03-05 19:36:24 Susan Haider [facility] FL BARIUM SWALLOW ESOPHAGUS 2023-02-11 16:08:21 Lorena Salgado [facility] CT HEAD WO CONTRAST 2023-02-10 20:09:00 Rebecca Rebollar [facility] ASSIGNMENT OF BENEFITS 2023-02-10 19:54:42 Docto r Unassigned, [place] [facility] CONSENT/REFUSAL FOR DIAGNOSIS AND TREATMENT 2023-02-10 19:12:57 Doctor Unassigned, [place] [facility] POCT URINALYSIS W/O SPECIFIC GRAVITY 2023-01-12 17:49:00 Tyler Goodrich [facility] CT ABDOMEN PELVIS W CONTRAST 2022-08-15 16:40:07 Lorena Salgado [facility] HB CREATININE SERUM/BLOOD FOR IMAGING 2022-08-15 16:25:00 Lorena Salgado [facility] NOTICE OF PRIVACY PRACTICES 2022-08-15 15:53:39 Doctor Unassigned, [place] [facility] CONSENT/REFUSAL FOR DIAGNOSIS AND TREATMENT 2022-08-15 15:53:14 Doctor Unassigned, [place] [facility] ASSIGNMENT OF BENEFITS 2022-08-15 15:52:49 Docto r Unassigned, [place] [facility] GC & CHLAMYDIA AMPLIFIED ASSAY 2022-07-24 16:24:00 Susan Haider [facility] GALV ONLY - VAGINAL PATHOGENS BY NUCLEIC ACID TESTING 2022-07-24 16:24:00 Susan Haider [facility] HSV 1&2, VZV NAAT 2022-07-24 16:24:00 Susan Iniguez [facility] PATIENT FINANCIAL POLICY 2022-07-24 15:39:32 Doctor Unassigned, [place] [facility] POCT URINALYSIS 2022-07-01 17:50:00 Susan Haider [facility] URINE CULTURE 2022-07-01 17:45:00 Susan Haider [facility] GALV ONLY - VAGINAL PATHOGENS BY NUCLEIC ACID TESTING 2022-07-01 17:45:00 Susan Haider [facility] ASSIGNMENT OF BENEFITS 2022-07-01 17:02:49 Docto r Unassigned, [place] [facility] DISCLOSURE AND CONSENT, MEDICAL AND SURGICAL PROCEDURES 2021-11-27 05:01:00 Doctor Unassigned, [place] [facility] POCT TEST 2021-11-27 00:00:00 Rabia Sanchez [facility] Encounters Start Date/Time End Date/Time Encounter Type Admission Type Attending [facility] Facility Care Department Encounter ID Source 2021-03-17 07:42:49 Emergency [facility] [id number] [facility] 2021-03-16 05:35:26 Emergency [facility] [id number] [facility] 2021-03-15 07:15:04 Emergency [facility] [id number] [facility] 2023-10-14 09:20:00 2023-10-14 09:20:00 Outpatient R SUSAN HAIDER [facility] [id number] [facility] 2023-07-21 00:00:00 2023-07-21 00:00:00 Case Management Susan Haider [facility] [id number] 350.1.13.10 4.2.7.2.686 [id number] [facility] 2023-07-16 09:40:00 2023-07-16 09:40:00 Office Visit Susan Haider [facility] 1.2.840.114 350.1.13.10 4.2.7.2.686 [id number] [facility] 2023-07-16 09:40:00 2023-07-16 09:38:36 Outpatient R SUSAN HAIDER [facility] [id number] [facility] 2023-07-01 12:40:00 2023-07-01 13:20:29 Outpatient R TRUE BHANDARI [facility] [id number] [facility] 2023-07-01 12:40:00 2023-07-01 13:20:29 Urgent Care PbTrue nguyen Unknown, Attending [facility] [id number] 350.1.13.10 4.2.7.2.686 [id number] [facility] 2023-07-01 00:00:00 2023-07-01 00:00:00 Orders Only Doctor Unassigned, [place] [facility] [id number] 350.1.13.10 4.2.7.2.686 [id number] [facility] 2023-06-29 00:00:00 2023-06-29 00:00:00 Refill Susan Haider [facility] APRIL?[facility] [id number] 350.1.13.10 4.2.7.2.686 [id number] [facility] 2023-06-29 00:00:00 2023-06-29 00:00:00 Refill Susan Haider [facility] APRIL?[facility] [id number] 350.1.13.10 4.2.7.2.686 [id number] [facility] 2023-06-29 00:00:00 2023-06-29 00:00:00 Refill Susan Haider Cadnis [facility] APRIL?[facility] 1.2.840.114 350.1.13.10 4.2.7.2.686 [id number] [facility] 2023-05-04 15:40:00 2023-05-04 16:35:26 Outpatient R JO BUTLER [facility] [id number] [facility] 2023-05-04 15:40:00 2023-05-04 16:00:00 Urgent Care Jo Butler Unknown, Attending [facility] 1..840.114 350.1.13.10 4.2.7.2.686 [id number] [facility] 2023-04-23 14:20:00 2023-04-23 14:20:00 Outpatient R SUSAN HAIDER [facility] [id number] [facility] 2023-04-15 14:00:00 2023-04-15 14:20:00 Office Visit Meliza Susan [facility] APRIL?[facility] 1.840.114 350.1.13.10 4.2.7.2.686 [id number] [facility] 2023-04-15 14:00:00 2023-04-15 14:00:00 Outpatient R SUSAN HAIDER [facility] [id number] [facility] 2023-04-01 00:00:00 2023-04-01 00:00:00 Refill [place] Susan [facility] APRIL?[facility] MED[facility] OFFICE BUILD[facility] 1.840.114 350.1.13.10 4.2.7.2.686 [id number] [facility] 2023-03-31 00:00:00 2023-03-31 00:00:00 Refill Meliza Susan Candis [facility] APRIL?[facility] OFFICE BUILD[facility] 1.840.114 350.1.13.10 4.2.7.2.686 [id number] [facility] 2023-03-31 00:00:00 2023-03-31 00:00:00 Refill Meliza Susan [facility] APRIL?[facility] 1..840.114 350.1.13.10 4.2.7.2.686 [id number] [facility] 2023-03-17 00:00:00 2023-03-17 00:00:00 Refill Susan Haider [facility] 1.2.840.114 350.1.13.10 4.2.7.2.686 [id number] [facility] 2023-03-09 09:00:00 2023-03-09 09:00:00 Outpatient R [facility] [id number] [facility] 2023-03-05 14:00:00 2023-03-05 15:07:13 Outpatient R SUSAN HAIDER [facility] [id number] [facility] 2023-03-05 14:00:00 2023-03-05 15:07:13 Office Visit Susan Haider [facility] 1..840.114 350.1.13.10 4.2.7.2.686 [id number] [facility] 2023-02-27 10:59:13 2023-02-27 23:59:00 Outpatient R SUSAN HAIDER [facility] [id number] [facility] 2023-02-27 10:45:00 2023-02-27 23:59:00 Hospital Encounter Susan Haider [facility] 1.840.114 350.1.13.10 4.2.7.2.686 [id number] [facility] 2023-02-20 00:00:00 2023-02-20 00:00:00 Nurse Triage Mannie Bang, [facility] 1..840.114 350.1.13.10 4.2.7.2.686 [id number] [facility] 2023-02-17 15:30:00 2023-02-17 15:45:00 Traffic Rate Clerk Visit Lab, Susan [facility] MED[facility] 1..840.114 350.1.13.10 4.2.7.2.686 [id number] [facility] 2023-02-17 14:00:00 2023-02-17 15:13:04 Outpatient R SUSAN HAIDER [facility] [id number] [facility] 2023-02-17 14:00:00 2023-02-17 15:13:04 Office Visit Susan Haider [facility] 1..840.114 350.1.13.10 4.2.7.2.686 [id number] [facility] 2023-02-13 00:00:00 2023-02-13 00:00:00 Refill Susan Haider [facility] 1..840.114 350.1.13.10 4.2.7.2.686 [id number] [facility] [facility] 2023-02-11 09:57:31 2023-02-11 23:59:00 Outpatient R NAOMI LORENA [facility] [id number] [facility] 2023-02-11 09:57:31 2023-02-11 23:59:00 Hospital Encounter Lorena Salgado [facility] 1.840.114 350.1.13.10 4.2.7.2.686 [id number] [facility] 2023-02-10 14:24:00 2023-02-10 16:12:00 Emergency X ADONIS REBOLLAR [facility] ERT [id number] [facility] 2023-02-10 14:24:00 2023-02-10 16:12:00 Emergency Adonis Rebollar [facility] 1.2840.114 350.1.13.10 4.2.7.2.686 [id number] [facility] 2023-02-10 00:00:00 2023-02-10 00:00:00 Telephone Susan Haider [facility]?EL[facility] MEDICAL OFF[facility] 1..840.114 350.1.13.10 4.2.7.2.686 [id number] [facility] 2023-01-21 12:00:00 2023-01-21 12:00:00 Traffic Rate Clerk Visit Lab, Dustin - Minh FosterSammi [facility] MEDICAL OFFICE BUILDING 1..840.114 350.1.13.10 4.2.7.2.686 [id number] [facility] 2023-01-21 12:00:00 2023-01-21 11:59:55 Outpatient R KRISTIN SAMMI [facility] [id number] [facility] 2023-01-21 11:30:00 2023-01-21 11:49:12 Office Visit ElvinSammi nunez [facility]UD [facility] MED[facility] OFF[facility]ILD[facility] 1..840.114 350.1.13.10 4.2.7.2.686 [id number] [facility] 2023-01-20 14:40:00 2023-01-20 14:40:00 Outpatient R SUSAN HAIDER [facility] [id number] [facility] 2023-01-14 00:00:00 2023-01-14 00:00:00 Case Management Tyler Goodrich [facility] MEDICAL OFFICE BUILDING 1..840.114 350.1.13.10 4.2.7.2.686 [id number] [facility] 2023-01-14 00:00:00 2023-01-14 00:00:00 Patient Secure Msg Doctor Unassigned, [place] [facility] 1.2.840.114 350.1.13.10 4.2.7.2.686 [id number] [facility] 2023-01-12 13:00:00 2023-01-12 13:24:43 Outpatient R KP [facility] [id number] [facility] 2023-01-12 13:00:00 2023-01-12 13:24:43 Office Visit Tyler Goodrich [facility] BU[facility] 1..840.114 350.1.13.10 4.2.7.2.686 [id number] [facility] 2022-12-09 11:30:00 2022-12-09 11:30:00 Outpatient R SAMMI FOSTER [facility] [id number] [facility] 2022-12-03 00:00:00 2022-12-03 00:00:00 Refill Susan Haider [facility] APRIL?[facility] MEDICAL OFF[facility] BUILDING 1..840.114 350.1.13.10 4.2.7.2.686 [id number] [facility] 2022-11-24 14:30:00 2022-11-24 15:02:34 Outpatient R SAMMI FOSTER [facility] [id number] [facility] 2022-11-24 14:30:00 2022-11-24 15:02:34 Office Visit Sammi Foster [facility] APRIL?ELIUD [facility] MEDICAL OFF[facility] BUILDING 1..840.114 350.1.13.10 4.2.7.2.686 [id number] [facility] 2022-10-15 00:00:00 2022-10-15 00:00:00 Refill Susan Haider [facility] APRIL?[facility] MEDICAL OFFICE BUILDING 1..840.114 350.1.13.10 4.2.7.2.686 [id number] [facility] 2022-10-15 00:00:00 2022-10-15 00:00:00 Silas Ull[facility] 1..840.114 350.1.13.10 4.2.7.2.686 [id number] [facility] 2022-09-08 15:40:00 2022-09-08 16:00:00 Urgent Care Adair Romero Unknown, Attending [facility] MEDICAL OFFICE BUILDING 1.2.840.114 350.1.13.10 4.2.7.2.686 [id number] [facility] 2022-09-08 15:40:00 2022-09-08 15:40:00 Outpatient R ADAIR ROMERO [facility] [id number] [facility] 2022-08-21 09:40:00 2022-08-21 09:40:00 Office Visit [facility] MEDICAL OFFICE BUILDING 1.2.840.114 350.1.13.10 4.2.7.2.686 [id number] [facility] 2022-08-21 09:30:00 2022-08-21 09:30:00 Outpatient R SUSAN HAIDER [facility] [id number] [facility] 2022-08-21 09:40:00 2022-08-21 09:25:29 Outpatient ALANA MATTHEWS [facility] [id number] [facility] 2022-08-15 10:53:47 2022-08-15 23:59:00 Outpatient LORENA ASIF [facility] [id number] [facility] 2022-08-15 10:50:00 2022-08-15 23:59:00 Hospital Encounter Lorena Salgado [facility] 1.84.114 350.1.13.10 4.2.7.2.686 [id number] [facility] 2022-08-05 11:00:00 2022-08-05 11:00:00 Outpatient R SUSAN HAIDER [facility] [id number] [facility] 2022-07-28 00:00:00 2022-07-28 00:00:00 Telephone [facility] MED[facility]ILD[facility] 1.84.114 350.1.13.10 4.2.7.2.686 [id number] [facility] 2022-07-24 09:45:00 2022-07-24 10:29:18 Outpatient R SUSAN HAIDER [facility] [id number] [facility] 2022-07-24 09:45:00 2022-07-24 10:29:18 Office Visit Susan Haider [facility] MED[facility] BUILD[facility] 1.84.114 350.1.13.10 4.2.7.2.686 [id number] [facility] 2022-07-24 00:00:00 2022-07-24 00:00:00 Orders Only Doctor Unassigned, [place] [facility] 1.114 350.1.13.10 4.2.7.2.686 [id number] [facility] 2022-07-16 00:00:00 2022-07-16 00:00:00 Telephone Susan Haider [facility] MEDICAL OFFICE BUILDING 1.84.114 350.1.13.10 4.2.7.2.686 [id number] [facility] 2022-07-03 00:00:00 2022-07-03 00:00:00 Case Management Susan Haider [facility] MED[facility] 1..840.114 350.1.13.10 4.2.7.2.686 [id number] [facility] 2022-07-01 11:15:00 2022-07-01 11:41:57 Outpatient R SUSAN HAIDER [facility] [id number] [facility] 2022-07-01 11:15:00 2022-07-01 11:41:57 Office Visit Susan Haider [facility] MEDICAL OFFICE BUILDING 1..840.114 350.1.13.10 4.2.7.2.686 [id number] [facility] 2022-07-01 00:00:00 2022-07-01 00:00:00 Orders Only Doctor Unassigned, [place] [facility] 1..840.114 350.1.13.10 4.2.7.2.686 [id number] [facility] 2022-06-25 11:00:00 2022-06-25 11:00:00 Outpatient DUNG OGDEN [facility] [id number] [facility] 2022-06-24 00:00:00 2022-06-24 00:00:00 Silas Ulloa [facility] 1..840.114 350.1.13.10 4.2.7.2.686 [id number] [facility] 2022-06-19 14:30:00 2022-06-19 14:30:00 Outpatient SILAS GUEVARA [facility] [id number] [facility] 2022-06-05 10:30:00 2022-06-05 10:30:00 Outpatient TYLER MARSHALL [facility] [id number] [facility] 2022-06-03 00:00:00 2022-06-03 00:00:00 Case Management Stefanie Abarca 1..840.114 350.1.13.10 4.2.7.2.686 [id number] [facility] 2022-03-20 11:00:00 2022-03-20 11:00:00 Outpatient R SUSAN HAIDER [facility] [id number] [facility] 2021-11-27 09:15:00 2021-11-27 10:42:35 Office Visit [facility] 1..840.114 350.1.13.10 4.2.7.2.686 [id number] [facility] 2021-11-27 09:15:00 2021-11-27 10:42:35 Outpatient R RABIA SANCHEZ [facility] [id number] [facility] 2021-11-27 09:15:00 2021-11-27 09:15:00 Outpatient R RABIA SANCHEZ [facility] [id number] [facility] 2021-11-27 09:15:00 2021-11-27 09:15:00 Outpatient R RABIA SANCHEZ [facility] [id number] [facility] 2021-11-27 00:00:00 2021-11-27 00:00:00 Orders Only Doctor Unassigned, [place] [facility] 1..840.114 350.1.13.10 4.2.7.2.686 [id number] [facility] 2021-11-20 10:45:00 2021-11-20 11:09:12 Outpatient R TYLER GOODRICH [facility] [id number] [facility] 2021-11-20 10:45:00 2021-11-20 11:09:12 Office Visit Tyler Goodrich [facility] 1.2.840.114 350.1.13.10 4.2.7.2.686 [id number] [facility] 2021-11-04 00:00:00 2021-11-04 00:00:00 [facility] 1.2.840.114 350.1.13.10 4.2.7.2.686 [id number] [facility] 2021-10-31 12:00:00 2021-10-31 12:15:00 Traffic Rate Clerk Visit Pob, Adc Lab [facility] 1.2.840.114 350.1.13.10 4.2.7.2.686 [id number] [facility] 2021-10-31 10:15:00 2021-10-31 11:15:11 Outpatient R INGEJONASTYLER VIZCARRA [facility] [id number] [facility] 2021-10-31 10:15:00 2021-10-31 11:15:11 Office Visit Tyler Goodrich [facility] 1.2.840.114 350.1.13.10 4.2.7.2.686 [id number] [facility] 2021-10-31 10:15:00 2021-10-31 11:15:11 [facility] [id number] [facility] 2021-10-24 11:15:00 2021-10-24 11:15:00 Outpatient R KP TYLER [facility] [id number] [facility] 2021-10-08 09:30:00 2021-10-08 09:30:00 Outpatient R MINE SHETH [facility] [id number] [facility] 2021-09-18 00:00:00 2021-09-18 00:00:00 Telephone Silas Martins [facility] 1..114 350.1.13.10 4.2.7.2.686 [id number] [facility] 2021-09-17 13:15:00 2021-09-17 13:48:45 Office Visit Silas Martins [facility] 1..114 350.1.13.10 4.2.7.2.686 [id number] [facility] 2021-09-17 13:15:00 2021-09-17 13:48:45 Outpatient SILAS GUEVARA [facility] [id number] [facility] 2021-09-17 13:15:00 2021-09-17 13:15:00 Outpatient SILAS GUEVARA [facility] [id number] [facility] 2021-09-08 00:00:00 2021-09-08 00:00:00 Susan Mak [facility] 1..114 350.1.13.10 4.2.7.2.686 [id number] [facility] 2021-08-26 08:45:00 2021-08-26 08:45:00 Outpatient ELOY SANDY [facility] [id number] [facility] 2021-08-14 00:00:00 2021-08-14 00:00:00 Patient Secure Msg Doctor Unassigned, [place] [facility] ..114 350.1.13.10 4.2.7.2.686 [id number] [facility] 2021-08-08 00:00:00 2021-08-08 00:00:00 Telephone Alan Conde [facility] 1..114 350.1.13.10 4.2.7.2.686 [id number] [facility] 2021-07-30 00:00:00 2021-07-30 00:00:00 Outpatient ALAN JOLLY [facility] [id number] [facility] 2021-07-16 16:51:18 2021-07-16 23:59:00 Outpatient ALAN JOLLY [facility] [id number] [facility] 2021-07-16 16:51:18 2021-07-16 23:59:00 Hospital Encounter Alan Conde [facility] 1.2.840.114 350.1.13.10 4.2.7.2.686 [id number] [facility] 2021-07-16 15:50:00 2021-07-16 16:00:00 Office Visit Alan Conde [facility] [place] [facility] 1.2.840.114 350.1.13.10 4.2.7.2.686 [id number] [facility] 2021-07-16 15:50:00 2021-07-16 15:50:00 Outpatient ALAN JOLLY [facility] [id number] [facility] 2021-05-28 15:30:00 2021-05-28 15:30:00 Outpatient MINE FUENTES [facility] [id number] [facility] 2021-05-21 11:00:00 2021-05-21 11:00:00 Outpatient SUSAN HERRERA [facility] [id number] [facility] 2021-04-18 11:15:00 2021-04-18 11:57:00 Outpatient SUSAN HERRERA [facility] [id number] [facility] 2021-04-18 11:09:27 2021-04-18 11:57:00 Office Visit Susan Haider [facility] 1.2.840.114 350.1.13.10 4.2.7.2.686 [id number] [facility] 2021-04-18 11:15:00 2021-04-18 11:15:00 Outpatient SUSAN HERRERA [facility] [id number] [facility] 2021-04-18 00:00:00 2021-04-18 00:00:00 Orders Only Doctor Unassigned, [place] [facility] 1.114 350.1.13.10 4.2.7.2.686 [id number] [facility] 2021-02-01 16:00:00 2021-02-01 16:00:00 Outpatient SUSAN HERRERA [facility] [id number] [facility] 2020-11-29 00:00:00 2020-11-29 00:00:00 RefSusan Lora [facility] 1.114 350.1.13.10 4.2.7.2.686 [id number] [facility] 2020-11-29 00:00:00 2020-11-29 00:00:00 Susan Mak [facility] 1.114 350.1.13.10 4.2.7.2.686 [id number] 2020-11-16 00:00:00 2020-11-16 00:00:00 RefSusan Lora [facility] 1..114 350.1.13.10 4.2.7.2.686 [id number] [facility] 2020-11-16 00:00:00 2020-11-16 00:00:00 Susan Mak [facility] 1.114 350.1.13.10 4.2.7.2.686 [id number] 2020-11-15 11:30:23 2020-11-15 12:00:23 Office Visit Arcelia Morris [facility] 1.2.840.114 350.1.13.10 4.2.7.2.686 [id number] [facility] 2020-11-15 11:30:23 2020-11-15 12:00:23 Office Visit Arcelia Morris Faizan [facility] 1.2.840.114 350.1.13.10 4.2.7.2.686 [id number] 2020-11-15 12:00:00 2020-11-15 12:00:00 Outpatient R ARCELIA MORRIS [facility] [id number] [facility] 2020-11-14 00:00:00 2020-11-14 00:00:00 Telephone Kerry Kruse [facility] 1.2.840.114 350.1.13.10 4.2.7.2.686 [id number] [facility] 2020-11-13 00:00:00 2020-11-13 00:00:00 Patient Secure Msg Susan Haider [facility] 1.2.840.114 350.1.13.10 4.2.7.2.686 [id number] [facility] 2020-11-13 00:00:00 2020-11-13 00:00:00 Patient Secure Msg Susan Haider [facility] 1.2.840.114 350.1.13.10 4.2.7.2.686 [id number] [facility] 2020-11-13 00:00:00 2020-11-13 00:00:00 Patient Secure Msg Susan Haider [facility] 1.2.840.114 350.1.13.10 4.2.7.2.686 [id number] 2020-11-08 11:09:23 2020-11-08 12:22:47 Office Visit Susan Haider [facility] 1.2.840.114 350.1.13.10 4.2.7.2.686 [id number] [facility] 2020-11-08 11:00:00 2020-11-08 11:00:00 Outpatient SUSAN HERRERA [facility] [id number] [facility] 2020-11-02 00:00:00 2020-11-02 00:00:00 Telephone Susan Haider [facility] 1.2.840.114 350.1.13.10 4.2.7.2.686 [id number] [facility] 2020-10-31 00:00:00 2020-10-31 00:00:00 Outpatient LORENA ASIF [facility] [id number] [facility] 2020-10-25 11:05:46 2020-10-25 12:04:53 Office Visit Susan Haider [facility] 1.2.840.114 350.1.13.10 4.2.7.2.686 [id number] [facility] 2020-10-25 11:00:00 2020-10-25 11:00:00 Outpatient SUSAN HERRERA [facility] [id number] [facility] 2020-10-23 16:15:00 2020-10-23 16:15:00 Outpatient SUSAN HERRERA [facility] [id number] [facility] 2020-08-28 15:45:00 2020-08-28 15:45:00 Outpatient R SUSAN HAIDER [facility] [id number] [facility] 2020-08-06 20:28:00 2020-08-06 23:01:00 Emergency Rebeca Mcclellan [facility] 1.2.840.114 350.1.13.10 4.2.7.2.686 [id number] [facility] 2020-08-06 00:00:00 2020-08-06 00:00:00 Patient Outreach Jamie Yveseric Bañuelos [facility] 1.2.840.114 350.1.13.10 4.2.7.2.686 [id number] [facility] 2020-07-06 14:00:00 2020-07-06 14:00:00 Outpatient R [facility] [id number] [facility] 2020-07-02 08:00:00 2020-07-02 08:00:00 Outpatient R [facility] [id number] [facility] 2020-06-15 00:00:00 2020-06-15 00:00:00 Patient Secure Kerry Sanchez [facility] 1.840.114 350.1.13.10 4.2.7.2.686 [id number] [facility] 2020-06-11 00:00:00 2020-06-11 00:00:00 Telephone Kerry Kruse [facility] 1.840.114 350.1.13.10 4.2.7.2.686 [id number] [facility] 2020-06-08 14:45:00 2020-06-08 15:00:00 Office Visit Susan Haider [facility] 1.2.840.114 350.1.13.10 4.2.7.2.686 [id number] [facility] 2020-06-08 14:45:00 2020-06-08 14:45:00 Outpatient R SUSAN HAIDER [facility] [id number] [facility] 2020-06-08 14:40:00 2020-06-08 14:40:00 Outpatient KERRY MALLORY [facility] [id number] [facility] 2020-06-08 13:56:21 2020-06-08 14:16:21 Nurse Visit Nurse, Kerry Zapata [facility] 1.84.114 350.1.13.10 4.2.7.2.686 [id number] [facility] 2020-06-01 10:40:00 2020-06-01 10:40:00 Outpatient SUSAN HERRERA [facility] [id number] [facility] 2020-05-30 15:50:39 2020-05-30 17:01:06 Office Visit Susan Haider [facility] 1..114 350.1.13.10 4.2.7.2.686 [id number] [facility] 2020-05-30 16:00:00 2020-05-30 16:00:00 Outpatient SUSAN HERRERA [facility] [id number] [facility] 2020-05-25 00:00:00 2020-05-25 00:00:00 Kerry Butterfield [facility] 1..114 350.1.13.10 4.2.7.2.686 [id number] [facility] 2020-05-25 00:00:00 2020-05-25 00:00:00 Kerry Butterfield [facility] 1..114 350.1.13.10 4.2.7.2.686 [id number] [facility] 2020-04-16 00:00:00 2020-04-16 00:00:00 Tele[facility] 1.2.840.114 350.1.13.10 4.2.7.2.686 [id number] [facility] 2020-04-10 14:03:44 2020-04-10 15:24:29 Nurse Visit Nurse, [facility] Rabia Sanchez [facility] Building 1.2.840.114 350.1.13.10 4.2.7.2.686 [id number] [facility] 2020-04-10 14:30:00 2020-04-10 14:30:00 Outpatient R [facility] [id number] [facility] 2020-04-10 00:00:00 2020-04-10 00:00:00 Patient Secure Msg AdMine simpson Carlos [facility] 1.2.840.114 350.1.13.10 4.2.7.2.686 [id number] [facility] 2020-04-09 00:00:00 2020-04-09 00:00:00 Telephone Mine Sheth [facility] 1.2.840.114 350.1.13.10 4.2.7.2.686 [id number] [facility] 2020-04-06 11:45:00 2020-04-06 11:45:00 Outpatient R SUSAN HAIDER [facility] [id number] [facility] 2020-04-04 00:00:00 2020-04-04 00:00:00 Telephone Mine Sheth [facility] 1.2.840.114 350.1.13.10 4.2.7.2.686 [id number] [facility] 2020-03-31 21:29:00 2020-03-31 22:52:00 Emergency Bridget Ferrari [facility] [id number] [facility] 2020-03-31 00:00:00 2020-03-31 00:00:00 Orders Only Doctor Unassigned, [place] [facility] [id number] [facility] 2020-03-30 00:00:00 2020-03-30 00:00:00 Telephone Mine Sheth [facility] Building 1.2840.114 350.1.13.10 4.2.7.2.686 [id number] [facility] 2020-03-30 00:00:00 2020-03-30 00:00:00 [facility] 1.2.114 350.1.13.10 4.2.7.2.686 [id number] [facility] 2020-03-28 10:16:37 2020-03-28 10:31:37 Nurse Visit Nurse, [facility] Ad[facility] 1.2840.114 350.1.13.10 4.2.7.2.686 [id number] [facility] 2020-03-28 10:30:00 2020-03-28 10:30:00 Outpatient R [facility] [id number] [facility] 2020-01-06 00:00:00 2020-01-06 00:00:00 [facility] 1.2.840.114 350.1.13.10 4.2.7.2.686 [id number] [facility] 2019-12-27 00:00:00 2019-12-27 00:00:00 Telephone AdMine simpson [facility] Papito Antonio [facility] 1.2.114 350.1.13.10 4.2.7.2.686 [id number] [facility] 2019-12-26 11:15:00 2019-12-26 11:15:00 Outpatient R KPTYLER [facility] [id number] [facility] 2019-12-21 13:53:18 2019-12-21 14:45:28 Office Visit Adkeshia Mine Gonzalez [facility] 1.114 350.1.13.10 4.2.7.2.686 [id number] [facility] 2019-12-21 13:30:00 2019-12-21 13:30:00 Outpatient R PARADISEMINE SIMPSON [facility] [id number] [facility] 2019-12-21 00:00:00 2019-12-21 00:00:00 Orders Only Doctor Unassigned, [place] [facility] 1.114 350.1.13.10 4.2.7.2.686 [id number] [facility] 2019-12-13 00:00:00 2019-12-13 00:00:00 Patient Secure Msg Doctor Unassigned, [place] [facility] 1.2.114 350.1.13.10 4.2.7.2.686 [id number] [facility] 2019-12-13 00:00:00 2019-12-13 00:00:00 Telephone KpTyler [facility] 1.2.114 350.1.13.10 4.2.7.2.686 [id number] [facility] 2019-12-06 00:00:00 2019-12-06 00:00:00 Refill Doctor Unassigned, [place] [facility] 1.2.840.114 350.1.13.10 4.2.7.2.686 [id number] [facility] 2019-12-06 00:00:00 2019-12-06 00:00:00 Refill Doctor Unassigned, [place] [facility] 1.2840.114 350.1.13.10 4.2.7.2.686 [id number] [facility] 2019-12-06 00:00:00 2019-12-06 00:00:00 Refill Doctor Unassigned, [place] [facility] 1.2840.114 350.1.13.10 4.2.7.2.686 [id number] [facility] 2019-12-03 00:00:00 2019-12-03 00:00:00 Refill Kerry Kruse [facility] 1.2840.114 350.1.13.10 4.2.7.2.686 [id number] [facility] 2019-12-01 21:00:45 2019-12-01 23:27:00 Emergency Gianni Marsh [facility] 1.2840.114 350.1.13.10 4.2.7.2.686 [id number] [facility] 2019-12-01 00:00:00 2019-12-01 00:00:00 Orders Only Doctor Unassigned, [place] [facility] 1.2840.114 350.1.13.10 4.2.7.2.686 [id number] [facility] 2019-11-23 14:30:00 2019-11-23 14:30:00 Outpatient R TYLER GOODRICH [facility] [id number] [facility] 2019-11-01 00:00:00 2019-11-01 00:00:00 Refill Kerry [facility] 1.2.840.114 350.1.13.10 4.2.7.2.686 [id number] [facility] 2019-10-05 00:00:00 2019-10-05 00:00:00 Refill Kerry Kruse [facility] 1.2.840.114 350.1.13.10 4.2.7.2.686 [id number] [facility] 2019-08-29 11:10:52 2019-09-01 09:07:40 Urgent Care Arcelia Morris, Attending [facility] 1.2.840.114 350.1.13.10 4.2.7.2.686 [id number] [facility] 2019-09-01 00:00:00 2019-09-01 00:00:00 Patient Secure Michelle Pelaez [facility] 1.2.840.114 350.1.13.10 4.2.7.2.686 [id number] [facility] 2019-09-01 00:00:00 2019-09-01 00:00:00 Telephone Arcelia Morris [facility] 1.2.840.114 350.1.13.10 4.2.7.2.686 [id number] [facility] 2019-08-29 11:00:00 2019-08-29 11:00:00 Outpatient R UNKNOWN, ATTENDING [facility] [id number] [facility] 2019-08-26 00:00:00 2019-08-26 00:00:00 Telephone Kerry Kruse [facility] 1.2.840.114 350.1.13.10 4.2.7.2.686 [id number] [facility] 2019-08-11 00:00:00 2019-08-11 00:00:00 Refill Kerry Kruse [facility] 1.2.840.114 350.1.13.10 4.2.7.2.686 [id number] [facility] 2019-06-15 00:00:00 2019-06-15 00:00:00 Refill Kerry Kruse [facility] 1.2.840.114 350.1.13.10 4.2.7.2.686 [id number] [facility] 2019-05-13 00:00:00 2019-05-13 00:00:00 Patient Secure Msg Doctor Unassigned, [place] [facility] 1.2.840.114 350.1.13.10 4.2.7.2.686 [id number] [facility] 2019-02-01 00:00:00 2019-02-01 00:00:00 Patient Outreach Holly Harris [facility] 1.2.840.114 350.1.13.10 4.2.7.2.686 [id number] [facility] 2019-01-06 11:22:10 2019-01-06 11:52:10 Office Visit Cyrus Bateman [facility] [place] [facility] 1.2.840.114 350.1.13.10 4.2.7.2.686 [id number] [facility] 2019-01-05 00:00:00 2019-01-05 00:00:00 Ventura Niño [facility] 1.2.840.114 350.1.13.10 4.2.7.2.686 [id number] [facility] 2018-12-27 00:00:00 2018-12-27 00:00:00 Telephone Tyler Goodrich [facility] 1.2.840.114 350.1.13.10 4.2.7.2.686 [id number] [facility] 2018-12-21 00:00:00 2018-12-21 00:00:00 Patient Outreach Steven Edisonrip Nunez [facility] 1.2.840.114 350.1.13.10 4.2.7.2.686 [id number] [facility] 2018-12-13 00:00:00 2018-12-13 00:00:00 Telephone Tyler Goodrich [facility] 1.2.840.114 350.1.13.10 4.2.7.2.686 [id number] [facility] 2018-12-10 00:00:00 2018-12-10 00:00:00 Telephone Tyler Goodrich [facility] 1.2.840.114 350.1.13.10 4.2.7.2.686 [id number] [facility] 2018-10-15 02:31:00 2018-10-15 03:40:00 Emergency E MATT MCLAUGHLIN [facility] [id number] [facility] 2018-10-01 08:05:00 2018-10-01 23:59:00 Outpatient C LORENA GREER [facility] [id number] [facility] Results Test Description Test Time Test Comments Results Result Co mments Source [facility] MOLECULAR [id number] 21:56:54* Test Item Value Reference Range Interpretation Comme nts POCT Molecular Strep (test c ode = 47889-1) Negative Negative Lab Interpretation (test cod e = 95438-4) Normal [facility] URINALYSIS W/O SPECIFIC [id number] 17:49:00* Test Item Value Reference Range Interpretation Comme nts POCT PH U (test code = 3254) 5 mg/dl 5-8 POCT U LEUK EST (test code = 3263) 2+ Negative - Negative POCT U NIT (test code = 3262) negative Negative - Negati ve POCT U PROT (test code = 3259) trace Negative - Negat sosa POCT U GLU (test code = 3256) negative Negative - Negati ve POCT U KETONE (test code = 3258) negative Negative - Neg ative POCT U BLD (test code = 3257) negative Negative - Negati ve Lab Interpretation (test cod e = 82303-0) Abnormal [facility] URINALYSIS W/O SPECIFIC [id number] 17:49:00* Test Item Value Reference Range Interpretation Comme nts POCT PH U (test code = 3254) 5 mg/dl 5-8 POCT U LEUK EST (test code = 3263) 2+ Negative - Negative POCT U NIT (test code = 3262) negative Negative - Negati ve POCT U PROT (test code = 3259) trace Negative - Negat sosa POCT U GLU (test code = 3256) negative Negative - Negati ve POCT U KETONE (test code = 3258) negative Negative - Neg ative POCT U BLD (test code = 3257) negative Negative - Negati ve Lab Interpretation (test cod e = 02392-5) Abnormal [facility] [id number] 21:45:20* Test Item Value Reference Range Interpretation Comme nts POCT Creatinine (test code = 8156860991) 0.9 mg/dL 0.5-1.1 Lab Interpretation (test cod e = 00252-2) Normal [facility] URINALYSIS W SPECIFIC [id number] 17:52:00* Test Item Value Reference Range Interpretation Comme [...] U APPEAR (test code = 3267) clear [facility] URINALYSIS W SPECIFIC [id number] 17:52:00* Test Item Value Reference Range Interpretation Comme [...] U APPEAR (test code = 3267) clear [facility] URINALYSIS W SPECIFIC [id number] 17:52:00* Test Item Value Reference Range Interpretation Comme [...] U APPEAR (test code = 3267) clear [facility] URINALYSIS W SPECIFIC [id number] 17:52:00* Test Item Value Reference Range Interpretation Comme [...] U APPEAR (test code = 3267) clear [facility] [id number] 14:40:00* Test Item Value Reference Range Interpretation Comme nts POCT PREG (test code = 1605) Negative On board controls acceptable with C Line (test code = 3574) Yes POCT PREG LOT # (test code = 3575) POCT PREG TEST DATE ( test code = 3576) [facility] [id number] 14:40:00* Test Item Value Reference Range Interpretation Comme nts POCT PREG (test code = 1605) Negative On board controls acceptable with C Line (test code = 3574) Yes POCT PREG LOT # (test code = 3575) POCT PREG TEST DATE ( test code = 3576) [facility] ABDOMEN AND PELVIS WITH [id number] 08:51:45EXAM: CT ABDOMEN AND PELVIS WITH CONTRAST.LOCATION: D4.HISTORY: [id number]: Disorder of [id number]: Benign neoplasm of colon.COMPARISON:None.TECHNIQUE:CT abdomen and pelvis [...] the right kidney istoo small to characterize. Theliver, pancreas, spleen, bilateral adrenalglands, and left kidney appear within normal limits.Thereis no evidence of bowel obstruction. The appendix is not well visualized;however, there are no significant inflammatory changes in the right lowerquadrant to suggest appendicitis.No pneumoperitoneum or ascites is present. There is no retroperitoneal ormesenteric lymphadenopathy.Pelvis:The urinary bl adder appears normal. 4.0 cm left adnexal cyst is present, likelywithin the left ovary. Small amount of ascites is present. No pelvic oringuinal adenopathy is identified.Bones:There is a slight grade1 retrolisthesis of L2 over L3, L3 over L4, and of L5over S1. No acute osseous abnormality is identified. No aggressive lytic orblastic lesions are seen.IMPRESSION:4.0 cm left adnexal cyst, likely wit hin the left ovary.Mild physiologic pelvic ascites. 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 AnxietyChronicImprovedCont sertraline at 25 mg doseOk to continue use of hydroxyzineRestart regular exerciseFu in 3 mo and prn- SERTraline 25 mg tablet; Take 1 tablet by mouth in the morning. Dispense: 30 tablet; Refill: 3- hydrOXYzine 10 mg tablet; Take 1 tablet by mouth every 6 (six) hours as needed for Anxiety. Dispense: 20 tablet; Refill: 2Recent VisitsDate Type Provider Dept106/15/22 Office Visit Susan Haider MD [facility]03/05/23 Office Visit Susan Haider MD [facility]02/17/23 Office Visit Susan Haider MD [facility]01/21/23 Office Visit Sammi Foster FNP [facility]11/24/22 Office Visit Sammi Foster FNP [facility]08/21/22 Office Visit Alana Franco MD [facility]07/24/22 Office Visit Susan Haider MD [facility]07/01/22 Office Visit Susan Haider MD [facility] MedShowing recent visits within past 540 days with a meds authorizing provider and meeting all other requirementsFuture AppointmentsDate Type Provider Dept07/16/23 Appointment Susan Haider MD [facility]07/24/23 Appointment Susan Haider MD [facility] MedShowing future appointments within next 150 days with a meds authorizing provider and meeting all other requirements 57261-6Izyvvlmfr encounter YnurVR7852-51-93S51:35:52Telephone encounter NoteTXT1.2.840.514949.1.13.104.2.7. 2.320144|[id number] for patient bmdr89132-3SsjtHDQMCMHTJCDYvldwggol C-CDA narrative [id number] J Earnestine RN[address] Ir[id number] 2OSXLUICGBDGYAANRGTIUDJ8360-29-88R5 7:35:521.2.840.480645.1.72.3.15|1.2 .840.339655.1.13.104.2.7.2.727879_2 [id number] Nilsa Colby RN [facility] 2023-06-29 15:21:55 OErl7euqu5y2rTeQ2SsM 4oGLuY8BSurI5oS QDWb6mSsKyulZHIfBDGZz44Cx+0U46673-5 5:21:55 Images from the original note were not included.Requested RenewalshydrOXYzine 10 mg tabletPossible duplicate: Thomas to review recent actions on this medicationSig: Take 1 tablet by mouth every 6 (six) hours as needed for Anxiety.Disp: 20 tablet Refills: 2Start: 4Class: eRXFor: AnxietyLast ordered: 2 months ago (04/15/2023) by NEHA Saldivaratichelsea comment: I don't have anymore of this medicationAllergy: hydroxyzine Geofbg1306/29/2023 03:32 AMProtocol Details Valid encounter within last 12 monthsDepression screening completed in the last 12 monthsTo be filled at: [facility] [address] & [address] VisitsDate Type Provider Dept106/15/22 Office Visit Susan Haider MD [facility]03/05/23 Office Visit Susan Haider MD [facility]02/17/23 Office Visit Susan Haider MD [facility] Med01/21/23 Office Visit Sammi Foster FNP [facility] Med11/24/22 Office Visit Sammi Foster FNP [facility] Med08/21/22 Office Visit Alana Franco MD [facility]07/24/22 Office Visit Susan Haider MD [facility] Med07/01/22 Office Visit Susan Haider MD [facility] MedShowing recent visits within past 540 days with a meds authorizing provider and meeting all other requirementsFuture AppointmentsDate Type Provider Dept07/16/23 Appointment Susan Haider MD [facility] Med07/24/23 Appointment Susan Haider MD [facility] MedShowing future appointments within next 150 days with a meds authorizing provider and meeting all other requirements 12154-9Ttdbiccab encounter WufzAR5666-15-23T40:22:04Telephone encounter NoteTXT1.2.840.379425.1.13.104.2.7. 2.813953|[id number] for patient kpgq73972-0MkwaJXUSJMNUOTIQeaepnhsu C-CDA narrative [id number] M Fisher [address] AopyC[id number] 0LWTZLAESSVBIUYGCGVDEDE2676-70-84Q4 5:22:041.2.840.750601.1.72.3.15|1.2 .840.768661.1.13.104.2.7.2.727879_2 [id number] Kathleen Quezada LVN [facility] 2023-01-21 12:00:00 +ryU4eOCzI5DMVLIgOhZ sg6D+JmJIa3c9X/ o5tbNBqdNmTjy0me3UQvxi4+Ex63b9599-8 2:00:00 Images from the original note were not included.Venipuncture collection performed by clean technique on the right anticubitus. Total of 1 attempts were made. Slight pressure and a bandage/dressing were applied to the site(s). The patient experienced no complications. The following specimens were processed according to instructions and sent to [facility] laboratories per lab order on 01/21/2023: LT BLUE SST 1 RED LAV 1 PPT DK GREEN (LiHep) DK GREEN (SodH) FRAUSTO DK BLUE (K2) DK BLUE (S) ACD Blood Culture NIPT/NTD 08649-4Ffezz LcogYN4805-50-37O88:18:38Nurse NoteTXT1.2.840.398949.1.13.104.2.7. 2.801529|[id number] for patient hcyf57414-0Cwpja NoteLNUT[address] BpxuLlunbtknhPojdyjyluMSDV547689311 8CSIBAKRFXDEPFKXVTYQAHX6705-24-66Z9 2:18:381.2.840.731162.1.72.3.15|1.2 .840.632454.1.13.104.2.7.2.727879_1 [id number] [facility] 2022-12-03 16:28:47 FH2A0Sa504f0O/nZDIVg wzo/L6VvFWdod0q 70jolskGPQ4UZ8Pnl4PraFOqFfH670225-3 6:28:47 Next Appt: With Family Medicine (Kristin Zaldivar, PATIENT TRANSITION SPECIALIST)12/09/2022 at 11:30 AM 63735-8Lbjhvhqgf encounter IsubPX3522-61-85Y92:28:52Telephone encounter NoteTXT1.2.840.769904.1.13.104.2.7. 2.181841|[id number] for patient [id number] M Damien [address] Od[id number] 5KNVHXXIRZZKYQBIRKORWCO8167-50-20N3 6:28:521.2.840.304523.1.72.3.15|1.2 .840.547505.1.13.104.2.7.2.727879_1 [id number] Kathleen Chirinos [facility] 2022-12-03 15:00:22 N4ts6uHMDXo8c5+BocdP sDY+cJi2AVJ59dd 8WJ/fdQ9nkAtZUmZiDep6Rt9OEzcI6012-3 12-03T15:00:22 Please review and fill historical med if appropriate. Order History 4 months ago (07/24/2022) omeprazole 40 mg capsule Take 1 capsule by mouth in the morning. Dispense: Not specified Start: 07/20/2022 By: Doctor Unassigned, [place] Encounter Recent VisitsDate Type Provider Dept 11/24/22 Office Visit Sammi Foster FNP [facility] 08/21/22 Office Visit Alana Franco MD [facility] 07/24/22 Office Visit Susan Haider MD [facility] 07/01/22 Office Visit Susan Haider MD [facility] 09/17/21 Office Visit Silas Martins MD [facility] Showing recent visits within past 540 days with a meds authorizing provider and meeting all other requirementsFuture AppointmentsDate Type Provider Dept 12/09/22 Appointment Sammi Foster FNP [facility] Showing future appointments within next 150 days with a meds authorizing provider and meeting all other requirements 54207-6Lpyypezcs encounter GebfFE8812-32-13U28:00:47Telephone encounter NoteTXT1.2.840.355350.1.13.104.2.7. 2.927916|[id number] for patient dnnh915931096Tdlpndc M Fisher [address] CirqUlvb[id number] 0NRABGZROMYKKCRTBFKZUOD5466-99-16S4 5:00:471.2.840.131532.1.72.3.15|1.2 .840.928743.1.13.104.2.7.2.727879_1 [id number] [facility]"
--- NOTE | 2023-07-24 10:03 | RAD REPORT ---
EXAM DESCRIPTION: CT - Head Brain Wo Cont - 07/24/2023 9:56 am CLINICAL HISTORY: HEADACHE Headache, drowsiness COMPARISON: HEAD BRAIN W O CONTRAST dated 06/11/2010 TECHNIQUE: All CT scans are performed using dose optimization technique as appropriate and may inclu de automated exposure control or mA/KV adjustment according to patient size. FINDINGS: No intracranial hemorrhage, hydrocephalus or extra-axial fluid collection.No areas of brai n edema or evidence of midline shift. The paranasal sinuses and mastoids are clear. The calvarium is intact. IMPRESSION: No acute intracranial abnormality.
[2023-07-24 10:14] LABS: Absolute Lymphocytes (CBC) 1.3 K/uL (0.7-4.9); Basophils % 0.4 % (0-1.3); Hematocrit 39.2 % (36.0-45.0); Lymphocytes % 20.6 % (15.3-44.8); MCV 90.2 fL (80-100); MPV 8.7 fL (7.6-11.3); Platelets 193 thou/uL (152-406); RBC Red Blood Cell Count 4.35 M/uL (3.86-4.86)
[2023-07-24 10:33] LABS: Albumin 3.8 g/dL (3.4-5.0); Anion Gap 6.8 mEq/L (5.0-15.0); Bilirubin Total 0.4 mg/dL (0.2-1.0); Potassium 3.8 mEq/L (3.5-5.1); Protein, Total 7.7 g/dL (6.4-8.2)
--- NOTE | 2023-07-24 10:45 | EDPHYS ---
Physician Documentation [facility] Name: Tg Quarles Age: 43 yrs Sex: Female : 1980 Arrival Date: 07/24/2023 Time: 09:34 Bed 15 Private MD: [facility] Physician Darrian Eason HPI: 07/23 10:39 This 43 yrs old Female presents to ER via Ambulatory with complaints of sina Migraine. 10:39 The patient complains of pain to the forehead and left eye. The patient describes the sina headache as aching. Onset: The symptoms/episode began/occurred 5 day(s) ago. Associated signs and symptoms: The patient has no apparent associated signs or symptoms. Severity of symptoms: At its worst the pain was moderate, in the emergency department the pain is unchanged. Headache History: The patient has had previous headaches and this one is similar to previous episodes. The symptoms are alleviated by nothing. the symptoms are aggravated by lights, movement, noise. The patient has experienced similar episodes in the past, several times. Historical: - Allergies: 09:53 Sulfa (Sulfonamide Antibiotics); hb 09:53 tramadol; hb - PMHx: 09:53 Anemia; GERD; Hypertension; UTI; hb - PSHx: 09:53 right shoulder; Cholecystectomy; hb - Immunization history:: Adult Immunizations up to date. - Social history:: Smoking status: Patient denies any tobacco usage or history of. - Family history:: not pertinent. ROS: 10:39 Constitutional: Negative for fever, chills, and weight loss, Eyes: Negative for injury, sina pain, redness, and discharge, ENT: Negative for injury, pain, and discharge, Neck: Negative for injury, pain, and swelling, Cardiovascular: Negative for chest pain, palpitations, and edema, Respiratory: Negative for shortness of breath, cough, wheezing, and pleuritic chest pain, Abdomen/GI: Negative for abdominal pain, nausea, vomiting, diarrhea, and constipation, Back: Negative for injury and pain, : Negative for injury, bleeding, discharge, and swelling, MS/Extremity: Negative for injury and deformity, Skin: Negative for injury, rash, and discoloration, Psych: Negative for depression, anxiety, suicide ideation, homicidal ideation, and hallucinations, Allergy/Immunology: Negative for hives, rash, and allergies, Endocrine: Negative for neck swelling, polydipsia, polyuria, polyphagia, and marked weight changes, Hematologic/Lymphatic: Negative for swollen nodes, abnormal bleeding, and unusual bruising, 10:39 Neuro: Positive for headache, not sudden , similar in past, Exam: 10:41 Constitutional: This is a well developed, well nourished patient who is awake, alert, sina and in no acute distress. Head/Face: Normocephalic, atraumatic. Eyes: Pupils equal round and reactive to light, extra-ocular motions intact. Lids and lashes normal. Conjunctiva and sclera are non-icteric and not injected. Cornea within normal limits. Periorbital areas with no swelling, redness, or edema. ENT: Nares patent. No nasal discharge, no septal abnormalities noted. Tympanic membranes are normal and external auditory canals are clear. Oropharynx with no redness, swelling, or masses, exudates, or evidence of obstruction, uvula midline. Mucous membranes moist. Neck: Trachea midline, no thyromegaly or masses palpated, and no cervical lymphadenopathy. Supple, full range of motion without nuchal rigidity, or vertebral point tenderness. No Meningismus. Chest/axilla: Normal chest wall appearance and motion. Nontender with no deformity. No lesions are appreciated. Cardiovascular: Regular rate and rhythm with a normal S1 and S2. No gallops, murmurs, or rubs. Normal PMI, no JVD. No pulse deficits. Respiratory: Lungs have equal breath sounds bilaterally, clear to auscultation and percussion. No rales, rhonchi or wheezes noted. No increased work of breathing, no retractions or nasal flaring. Abdomen/GI: Soft, non-tender, with normal bowel sounds. No distension or tympany. No guarding or rebound. No evidence of tenderness throughout. Back: No spinal tenderness. No costovertebral tenderness. Full range of motion. Skin: Warm, dry with normal turgor. Normal color with no rashes, no lesions, and no evidence of cellulitis. MS/ Extremity: Pulses equal, no cyanosis. Neurovascular intact. Full, normal range of motion. Neuro: Awake and alert, GCS 15, oriented to person, place, time, and situation. Cranial nerves II-XII grossly intact. Motor strength 5/5 in all extremities. Sensory grossly intact. Cerebellar exam normal. Normal gait. Psych: Awake, alert, with orientation to person, place and time. Behavior, mood, and affect are within normal limits. 10:41 Neck: External neck: is normal, no acute changes, ROM/movement: is normal, no acute changes, limited range of motion, is not appreciated, Meningeal signs: are not present, Kernig's sign is negative, Brudzinski's sign is negative, nuchal rigidity, is not appreciated, Vital Signs: 09:51 BP 118 / 69; Pulse 79; Resp 16; Temp 98.4(TE); Pulse Ox 100% on R/A; Weight 104.33 kg hb (R); Height 6 ft. 2 in. (R); Pain 0/10; 09:51 Body Mass Index 29.53 (104.33 kg, 187.96 cm) hb 09:51 Pain Scale: Adult hb [place] Coma Score: 10:41 Eye Response: spontaneous(4). Motor Response: obeys commands(6). Verbal Response: sina oriented(5). Total: 15. MDM: 09:39 Patient medically screened. sina 10:41 Differential diagnosis: herpes zoster, hypertensive headache, neoplasm, otitis, sina subarachnoid bleed, subdural hematoma, temporal arteritis, tension headache, trigeminal neuralgia. Data reviewed: vital signs, nurses notes, lab test result(s), radiologic studies, CT scan. Consideration of Admission/Observation Escalation of care including admission/observation considered. I considered the following discharge prescriptions or medication management in the emergency department Medications were administered in the Emergency Department. See MAR. Test considered but Not performed: MRI: no mri brain. 07/23 09:40 Order name: CBC with Diff; Complete Time: 10:38 [facility] 07/23 09:40 Order name: Comprehensive Metabolic Panel; Complete Time: 10:38 [facility] 07/23 09:40 Order name: Urinalysis w/ reflexes; Complete Time: 11:32 [facility] 07/23 09:40 Order name: PREGU; Complete Time: 11:32 [facility] 08 11:09 Order name: Urine Culture EDMS 07/23 09:40 Order name: CT Head Brain wo Cont; Complete Time: 10:38 [facility] 07/23 09:40 Order name: Oxygen; Complete Time: 10:15 sina Administered Medications: 10:15 Drug: NS 0.9% IV 1000 ml IV at 1 bolus Per protocol; 1000 mL bolus Route: IV; Rate: 1 kc6 bolus; Site: right antecubital; 10:46 Follow up: Response: No adverse reaction; IV Status: Completed infusion; IV Intake: kc6 1000ml 10:15 Drug: Ketorolac IVP 30 mg IVP once Route: IVP; Site: right antecubital; kc6 10:46 Follow up: Response: No adverse reaction; Pain is decreased kc6 10:15 Drug: diphenhydrAMINE IVP 50 mg IVP once Route: IVP; Site: right antecubital; kc6 10:46 Follow up: Response: No adverse reaction kc6 10:15 Drug: metoCLOPramide IVP 10 mg IVP once; over 1 to 2 minutes Route: IVP; Site: right kc6 antecubital; 10:46 Follow up: Response: No adverse reaction kc6 12:08 Drug: Rocephin IV 1 grams IV at per protocol once; Given slow IV push per pharmacy kc6 instructions Route: IV; Rate: per protocol; Site: right antecubital; 12:08 Drug: Ciprofloxacin PO 500 mg PO once Route: PO; kc6 Disposition Summary: 07/24/23 10:44 Discharge Ordered Notes: Location: Home sina Problem: new sina Symptoms: have improved sina Condition: Stable sina Diagnosis - Headache sina - UTI/ Urinary tract infection, site not specified sina Followup: sina - With: Private Physician - When: 2 - 3 days - Reason: Recheck today's complaints, Continuance of care, Re-evaluation by your physician Followup: sina - With: Mamadou Puente MD - When: 2 - 3 days - Reason: Recheck today's complaints, Continuance of care, Re-evaluation by your physician Discharge Instructions: - Discharge Summary Sheet sina - Migraine Headache sina - Urinary Tract Infection, Adult sina - Urinary Tract Infection, Adult, [id number] isna - Migraine Headache, [id number] sina Forms: - Medication Reconciliation Form sina - Thank You Letter sina - Antibiotic Education sina - Prescription Opioid Use sina - Patient Portal Instructions sina - Leadership Thank You Letter [facility] Prescriptions: - ondansetron 4 mg Oral Tablet,disintegrating - take 1 tablet ORAL route every 6-8 hours as needed for nausea and vomiting; 20 sina tablet; Refills: 0, Product Selection Permitted - Cipro 250 mg Oral tablet - take 2 tablets ORAL route every 12 hours; 14 tablet; Refills: 0, Product sina Selection Permitted - Diclofenac Sodium 75 mg Oral tablet, delayed release (enteric coated) - take 1 tablet ORAL route 2 times per day; 20 tablet; Refills: 0, Product sina Selection Permitted Signatures: Dispatcher [employer] Darrian Coulter MD MD cha Baxter, Heather RN Jaimie Louise RN RN kc6
--- NOTE | 2023-07-24 10:45 | ER ---
Nurse's Notes [facility] Name: Tg Quarles Age: 43 yrs Sex: Female : 1980 Arrival Date: 07/24/2023 Time: 09:34 Bed 15 Private MD: Diagnosis: Headache;UTI/ Urinary tract infection, site not specified Presentation: 07/23 09:51 Chief complaint: Intermittent eft sided headache with pain behind left eye x 5 days. hb Coronavirus screen: At this time, the client does not indicate any symptoms associated with coronavirus-19. Ebola Screen: No symptoms or risks identified at this time. Initial Sepsis Screen: Does the patient meet any 2 criteria? No. Patient's initial sepsis screen is negative. Does the patient have a suspected source of infection? No. Patient's initial sepsis screen is negative. Risk Assessment: Do you want to hurt yourself or someone else? Patient reports no desire to harm self or others. Onset of symptoms was July 20, 2023. 09:51 Method Of Arrival: Ambulatory hb 09:51 Acuity: JULIENNE 3 hb Triage Assessment: 09:53 General: Appears in no apparent distress. Behavior is calm, cooperative. Pain: Pain hb currently is 0 out of 10 on a pain scale. at worst was 10 out of 10 on a pain scale. Neuro: Level of Consciousness is awake, alert, obeys commands, Oriented to person, place, time, situation, Reports headache left sided with pain behind left eye. Cardiovascular: Patient's skin is warm and dry. Respiratory: Respiratory effort is even, unlabored, Respiratory pattern is regular, symmetrical. Historical: - Allergies: 09:53 Sulfa (Sulfonamide Antibiotics); hb 09:53 tramadol; hb - PMHx: 09:53 Anemia; GERD; Hypertension; UTI; hb - PSHx: 09:53 right shoulder; Cholecystectomy; hb - Immunization history:: Adult Immunizations up to date. - Social history:: Smoking status: Patient denies any tobacco usage or history of. - Family history:: not pertinent. Screenin:52 [facility] ED Fall Risk Assessment (Adult) History of falling in the last 3 months, kc6 including since admission No falls in past 3 months (0 pts) Confusion or Disorientation No (0 pts) Intoxicated or Sedated No (0 pts) Impaired Gait No (0 pts) Mobility Assist Device Used No (0 pt) Altered Elimination No (0 pt) Score/Fall Risk Level 0 - 2 = Low Risk. Abuse screen: Denies threats or abuse. Denies injuries from another. Nutritional screening: No deficits noted. Tuberculosis screening: No symptoms or risk factors identified. Assessment: 09:52 General: Appears in no apparent distress. comfortable, well groomed, well developed, kc6 Behavior is calm, cooperative, appropriate for age. Neuro: Level of Consciousness is awake, alert, obeys commands, Oriented to person, place, time, situation, Appropriate for age Reports headache. Cardiovascular: Capillary refill < 3 seconds. Respiratory: Airway is patent Trachea midline Respiratory effort is even, unlabored, Respiratory pattern is regular, symmetrical. GI: No signs and/or symptoms were reported involving the gastrointestinal system. : No signs and/or symptoms were reported regarding the genitourinary system. EENT: No signs and/or symptoms were reported regarding the EENT system. Derm: No signs and/or symptoms reported regarding the dermatologic system. Skin is intact, is healthy with good turgor, Skin is pink, warm \T\ dry. Musculoskeletal: No signs and/or symptoms reported regarding the musculoskeletal system. Circulation, motion, and sensation intact. Capillary refill < 3 seconds, Range of motion: intact in all extremities. 10:46 Reassessment: Patient appears in no apparent distress at this time. No changes from kc6 previously documented assessment. Patient and/or family updated on plan of care and expected duration. Pain level reassessed. Patient is alert, oriented x 3, equal unlabored respirations, skin warm/dry/pink. d/c pending urine results Patient denies pain at this time. Patient states feeling better. Patient states symptoms have improved. Vital Signs: 09:51 BP 118 / 69; Pulse 79; Resp 16; Temp 98.4(TE); Pulse Ox 100% on R/A; Weight 104.33 kg hb (R); Height 6 ft. 2 in. (R); Pain 0/10; 09:51 Body Mass Index 29.53 (104.33 kg, 187.96 cm) hb 09:51 Pain Scale: Adult hb [place] Coma Score: 10:41 Eye Response: spontaneous(4). Motor Response: obeys commands(6). Verbal Response: sina oriented(5). Total: 15. ED Course: 09:38 Patient arrived in ED. ra3 09:39 Darrian Eason MD is Attending Physician. sina 09:51 Jaimie Tabor, RN is Primary Nurse. kc6 09:52 Patient maintains SpO2 saturation greater than 95% on room air. kc6 09:52 Patient has correct armband on for positive identification. Bed in low position. Call kc6 light in reach. Side rails up X 1. Adult w/ patient. Client placed on continuous cardiac and pulse oximetry monitoring. NIBP monitoring applied. 09:53 Triage completed. hb 09:53 Arm band placed on right wrist. hb 09:[address] via wheelchair. hb 09:58 CT Head Brain wo Cont In Process Unspecified. EDMS 10:05 Inserted saline lock: 18 gauge in right antecubital area, using aseptic technique. zm Blood collected. 10:08 Comprehensive Metabolic Panel Sent. zm 10:08 CBC with Diff Sent. zm 10:08 Initial lab(s) drawn, by de, sent to lab. zm 10:43 Mamadou Puente MD is Referral Physician. sina 10:46 PREGU Sent. kc6 10:46 Urinalysis w/ reflexes Sent. kc6 12:09 No provider procedures requiring assistance completed. IV discontinued, intact, kc6 bleeding controlled, No redness/swelling at site. Pressure dressing applied. Administered Medications: 10:15 Drug: NS 0.9% IV 1000 ml IV at 1 bolus Per protocol; 1000 mL bolus Route: IV; Rate: 1 kc6 bolus; Site: right antecubital; 10:46 Follow up: Response: No adverse reaction; IV Status: Completed infusion; IV Intake: kc6 1000ml 10:15 Drug: Ketorolac IVP 30 mg IVP once Route: IVP; Site: right antecubital; kc6 10:46 Follow up: Response: No adverse reaction; Pain is decreased kc6 10:15 Drug: diphenhydrAMINE IVP 50 mg IVP once Route: IVP; Site: right antecubital; kc6 10:46 Follow up: Response: No adverse reaction kc6 10:15 Drug: metoCLOPramide IVP 10 mg IVP once; over 1 to 2 minutes Route: IVP; Site: right kc6 antecubital; 10:46 Follow up: Response: No adverse reaction kc6 12:08 Drug: Rocephin IV 1 grams IV at per protocol once; Given slow IV push per pharmacy kc6 instructions Route: IV; Rate: per protocol; Site: right antecubital; 12:08 Drug: Ciprofloxacin PO 500 mg PO once Route: PO; kc6 Medication: 12:09 VIS not applicable for this client. kc6 Intake: 10:46 IV: 1000ml; Total: 1000ml. kc6 Outcome: 10:44 Discharge ordered by MD. andino 12: Discharged to home ambulatory, with family, [facility] 12:09 Condition: improved 12:09 Discharge instructions given to patient, family, Instructed on discharge instructions, follow up and referral plans. medication usage, Demonstrated understanding of instructions, follow-up care, medications, Prescriptions given X 3, 12:09 Patient left the ED. kc6 Signatures: Dispatcher [employer] EDDarrian Alfonso MD MD cha Baxter, Heather, RN Anai Singh Kaitlyn, RN RN Imani Uriarte ra
[2023-07-24 10:56] LABS: Specific Gravity 1.017 (1.005-1.030)
[2023-07-24 11:03] LABS: Specific Gravity 1.017 (1.005-1.030); Urine Bacteria <20 /HPF (<20); Urine Bilirubin NEGATIVE (Negative); Urine Blood Negative (Negative); Urine Clarity Extremely Turbid (Clear); Urine Color Light-Yellow (Yellow); Urine Glucose NEGATIVE (Negative); Urine Protein NEGATIVE (Negative); Urine RBC <5 /HPF (None Seen); Urine Urobilinogen Normal (Normal); Urine pH 5.5 (5.0-7.0)
[2023-07-24 12:26] VITALS: BP 118/69; TEMP 98.4; O2SAT 100
== END ==
LOC: ER 09:34
DX: R51.9 Headache, unspecified (principal); N39.0 Urinary tract infection, site not specified; Z88.2 Allergy status to sulfonamides; Z88.5 Allergy status to narcotic agent
CPT/HCPCS: 96361; 87088; 85025; 81001; 87086; 36415; 81025; 80053; 70450; 96375; 96374; 99285; J0696